=== PATIENT | female | born 1995 | race Caucasian/White ===

== ENCOUNTER 2016-12-03 12:28 | Inpatient (IN) | payer OTHER ==
[2016-12-03 12:52] LABS: Glucose,Whole Blood >600 mg/dL (75-99)
[2016-12-03] MEDS ORDERED: SODIUM CHLORIDE 0.9% 2,000 ML IV STA (13:02)
--- NOTE | 2016-12-03 13:05 | ED ---
General Adult HPI - General Source: patient, RN notes reviewed Mode of arrival: wheelchair Limitations: no limitations <Emi To - Last Filed: 12/03/16 15:15> <Janes Grossman - Last Filed: 12/03/16 15:31> - General Chief complaint: Recheck/Abnormal Lab/Rx Stated complaint: lethargy/blood sugar problems Time Seen by Provider: 12/03/16 12:59 - History of Present Illness Initial comments: 21 yo female presents to the ER with cc of hyperglycemia. Patient states she started to feel very funny this morning and all of a sudden she took her glucose was reading high. Patient states then took 12 units of NovoLog and came here. She states yesterday her glucose usually running normal. She cannot recall the exact numbers but she states that everything was fine. She denies any cough cold runny nose. She states that she has had type 1 diabetes for the last about 9 years. Patient states that she has not had any nausea vomiting fever or chills. Patient denies any infection-like complaints. Patient states she was concerned due to the high glucose and the fact that she just was not feeling right so she thought that she should be seen.Patient denies any recent fever, chills, shortness of breath, chest pain, back pain, abdominal pain, nausea vomiting, numbness or tingling, dysuria or hematuria, constipation or diarrhea, headaches or visual changes, or any other current symptoms. (Emi To) - Related Data Home Medications Medication Instructions Recorded Confirmed Insulin Glargine [Lantus] 10 units SQ BID 10/31/14 12/03/16 Naproxen Sodium 550 tab PO BID PRN 10/31/14 12/03/16 Insulin Aspart [NovoLOG] See Protocol SQ ACHS 12/03/16 12/03/16 Allergies Allergy/AdvReac Type Severity Reaction Status Date / Time Sulfa (Sulfonamide AdvReac Nausea & Verified 12/03/16 12:55 Antibiotics) Vomiting sulfamethoxazole AdvReac Nausea & Verified 12/03/16 12:55 [From Bactrim] Vomiting trimethoprim [From Bactrim] AdvReac Nausea & Verified 12/03/16 12:55 Vomiting Review of Systems ROS Other: All systems not noted in ROS Statement are negative. <Emi To - Last Filed: 12/03/16 15:15> ROS Other: All systems not noted in ROS Statement are negative. <Janes Grossman - Last Filed: 12/03/16 15:31> ROS Statement: Those systems with pertinent positive or pertinent negative responses have been documented in the HPI. Past Medical History Past Medical History: Asthma, Diabetes Mellitus, GERD/Reflux, Syncope Additional Past Medical History / Comment(s): back pain- BULGING DISC, ovarian cyst History of Any Multi-Drug Resistant Organisms: MRSA Date of last positivie culture/infection: 03/2014 MDRO Source:: thigh Past Surgical History: No Surgical Hx Reported Past Anesthesia/Blood Transfusion Reactions: No Reported Reaction Past Psychological History: No Psychological Hx Reported Smoking Status: Never smoker - Past Family History Mother History Unknown: Yes Father Family Medical History: Diabetes Mellitus <Emi To - Last Filed: 12/03/16 15:15> General Exam Limitations: no limitations <Emi To - Last Filed: 12/03/16 15:15> <Janes Grossman - Last Filed: 12/03/16 15:31> - General Exam Comments Initial Comments: General: The patient is awake and alert, in no distress, and does not appear acutely ill. Eye: Pupils are equal, round and reactive to light, extra-ocular movements are intact; there is normal conjunctiva bilaterally. No signs of icterus. Ears, nose, mouth and throat: There are moist mucous membranes. Neck: The neck is supple, there is no tenderness. Cardiovascular: There is a regular rate and rhythm. No murmur, rub or gallop is appreciated. Respiratory: Lungs are clear to auscultation, respirations are non-labored, breath sounds are equal. No wheezes, stridor, rales, or rhonchi. Gastrointestinal: Soft, non-distended, non-tender abdomen without masses or organomegaly noted. There is no rebound or guarding present. No CVA tenderness. Bowel sounds are unremarkable. Back: There is no tenderness to palpation in the midline. There is no obvious deformity. No rashes noted. Musculoskeletal: Normal ROM, no tenderness, There is no pedal edema. There is no calf tenderness or swelling. Sensation intact. Pulses equal bilaterally 2+. Neurological: CN II-XII intact, There are no obvious motor or sensory deficits. Coordination appears grossly intact. Speech is normal. Skin: Skin is warm and dry and no rashes or lesions are noted. Psychiatric: Cooperative, appropriate mood & affect, normal judgment. (Emi To) Medical Decision Making - Lab Data Result diagrams: 12/03/16 13:14 12/03/16 13:14 <Emi To - Last Filed: 12/03/16 15:15> - Lab Data Result diagrams: 12/03/16 13:14 12/03/16 13:14 <Janes Grossman - Last Filed: 12/03/16 15:31> - Medical Decision Making 21-year-old female presents emergency Department chief complaint of hyperglycemia. At this time patient's lab work is reviewed and shows appear to be in DKA. This tenderness or place. We did discuss with The RN NURSERY for Dr. Garcia Who Is in Agreement with Plan. (Emi To) The patient was seen and examined. All diagnostics are reviewed. The case is discussed with the PA and I agree with findings as documented. (Jaens Grossman) - Lab Data Lab Results 12/03/16 12/03/16 12/03/16 Range/Units 12:41 13:14 13:14 WBC 4.1 (4.0-11.0) k/uL RBC 4.11 (3.80-5.40) m/uL Hgb 12.7 (11.4-16.0) gm/dL Hct 41.1 (34.0-46.0) % MCV 99.9 (80.0-100.0) fL MCH 30.9 (25.0-35.0) pg MCHC 30.9 L (31.0-37.0) g/dL RDW 17.3 H (11.5-15.5) % Plt Count 388 (150-450) k/uL Neutrophils % 67 % Lymphocytes % 24 % Monocytes % 5 % Eosinophils % 1 % Basophils % 1 % Neutrophils # 2.8 (1.3-7.7) k/uL Lymphocytes # 1.0 (1.0-4.8) k/uL Monocytes # 0.2 (0-1.0) k/uL Eosinophils # 0.0 (0-0.7) k/uL Basophils # 0.0 (0-0.2) k/uL Hypochromasia Moderate Poikilocytosis Slight Anisocytosis Slight Macrocytosis Slight PT (9.0-12.0) sec INR (<1.2) APTT (22.0-30.0) sec Sodium 137 (137-145) mmol/L Potassium 4.9 (3.5-5.1) mmol/L Chloride 104 (98-107) mmol/L Carbon Dioxide 5 L* (22-30) mmol/L Anion Gap 28 mmol/L BUN 16 (7-17) mg/dL Creatinine 0.54 (0.52-1.04) mg/dL Est GFR (MDRD) Af Amer >60 (>60 ml/min/1.73 sqM) Est GFR (MDRD) Non-Af >60 (>60 ml/min/1.73 sqM) Glucose 527 H* (74-99) mg/dL POC Glucose (mg/dL) >600 H (75-99) mg/dL POC Glu Family [employer] Consumer Education Teacher ID Rachel Cook Calcium 9.0 (8.4-10.2) mg/dL Phosphorus 4.9 H (2.5-4.5) mg/dL Magnesium 1.6 (1.6-2.3) mg/dL Total Bilirubin 1.2 (0.2-1.3) mg/dL AST 188 H (14-36) U/L ALT 257 H (9-52) U/L Alkaline Phosphatase 569 H (38-126) U/L Total Protein 7.2 (6.3-8.2) g/dL Albumin 4.4 (3.5-5.0) g/dL Urine Color Urine Appearance (Clear) Urine pH (5.0-8.0) Ur Specific [place] (1.001-1.035) Urine Protein (Negative) Urine Glucose (UA) (Negative) Urine Ketones (Negative) Urine Blood (Negative) Urine Nitrite (Negative) Urine Bilirubin (Negative) Urine Urobilinogen (<2.0) mg/dL Ur Leukocyte Esterase (Negative) Urine RBC (0-5) /hpf Urine WBC (0-5) /hpf Ur Squamous Epith Cells (0-4) /hpf Amorphous Sediment (None) /hpf Urine Mucus (None) /hpf Urine HCG, Qual (Not Detectd) Acetone, Qual Positive (Negative) 12/03/16 12/03/16 12/03/16 Range/Units 13:14 13:59 14:00 WBC (4.0-11.0) k/uL RBC (3.80-5.40) m/uL Hgb (11.4-16.0) gm/dL Hct (34.0-46.0) % MCV (80.0-100.0) fL MCH (25.0-35.0) pg MCHC (31.0-37.0) g/dL RDW (11.5-15.5) % Plt Count (150-450) k/uL Neutrophils % % Lymphocytes % % Monocytes % % Eosinophils % % Basophils % % Neutrophils # (1.3-7.7) k/uL Lymphocytes # (1.0-4.8) k/uL Monocytes # (0-1.0) k/uL Eosinophils # (0-0.7) k/uL Basophils # (0-0.2) k/uL Hypochromasia Poikilocytosis Anisocytosis Macrocytosis PT 9.6 (9.0-12.0) sec INR 0.9 (<1.2) APTT 19.0 L (22.0-30.0) sec Sodium (137-145) mmol/L Potassium (3.5-5.1) mmol/L Chloride (98-107) mmol/L Carbon Dioxide (22-30) mmol/L Anion Gap mmol/L BUN (7-17) mg/dL Creatinine (0.52-1.04) mg/dL Est GFR (MDRD) Af Amer (>60 ml/min/1.73 sqM) Est GFR (MDRD) Non-Af (>60 ml/min/1.73 sqM) Glucose (74-99) mg/dL POC Glucose (mg/dL) 331 H (75-99) mg/dL POC Glu Family And Consumer Education Teacher ID Dunsmore, Karlene Calcium (8.4-10.2) mg/dL Phosphorus (2.5-4.5) mg/dL Magnesium (1.6-2.3) mg/dL Total Bilirubin (0.2-1.3) mg/dL AST (14-36) U/L ALT (9-52) U/L Alkaline Phosphatase (38-126) U/L Total Protein (6.3-8.2) g/dL Albumin (3.5-5.0) g/dL Urine Color Urine Appearance (Clear) Urine pH (5.0-8.0) Ur Specific [place] (1.001-1.035) Urine Protein (Negative) Urine Glucose (UA) (Negative) Urine Ketones (Negative) Urine Blood (Negative) Urine Nitrite (Negative) Urine Bilirubin (Negative) Urine Urobilinogen (<2.0) mg/dL Ur Leukocyte Esterase (Negative) Urine RBC (0-5) /hpf Urine WBC (0-5) /hpf Ur Squamous Epith Cells (0-4) /hpf Amorphous Sediment (None) /hpf Urine Mucus (None) /hpf Urine HCG, Qual Not Detected (Not Detectd) Acetone, Qual (Negative) 12/03/16 12/03/16 12/03/16 Range/Units 14:00 14:31 15:04 WBC (4.0-11.0) k/uL RBC (3.80-5.40) m/uL Hgb (11.4-16.0) gm/dL Hct (34.0-46.0) % MCV (80.0-100.0) fL MCH (25.0-35.0) pg MCHC (31.0-37.0) g/dL RDW (11.5-15.5) % Plt Count (150-450) k/uL Neutrophils % % Lymphocytes % % Monocytes % % Eosinophils % % Basophils % % Neutrophils # (1.3-7.7) k/uL Lymphocytes # (1.0-4.8) k/uL Monocytes # (0-1.0) k/uL Eosinophils # (0-0.7) k/uL Basophils # (0-0.2) k/uL Hypochromasia Poikilocytosis Anisocytosis Macrocytosis PT (9.0-12.0) sec INR (<1.2) APTT (22.0-30.0) sec Sodium (137-145) mmol/L Potassium (3.5-5.1) mmol/L Chloride (98-107) mmol/L Carbon Dioxide (22-30) mmol/L Anion Gap mmol/L BUN (7-17) mg/dL Creatinine (0.52-1.04) mg/dL Est GFR (MDRD) Af Amer (>60 ml/min/1.73 sqM) Est GFR (MDRD) Non-Af (>60 ml/min/1.73 sqM) Glucose (74-99) mg/dL POC Glucose (mg/dL) 255 H 197 H (75-99) mg/dL POC Glu Family [employer] Consumer Education Teacher ID Ayesha Gonzalez Tiffany Calcium (8.4-10.2) mg/dL Phosphorus (2.5-4.5) mg/dL Magnesium (1.6-2.3) mg/dL Total Bilirubin (0.2-1.3) mg/dL AST (14-36) U/L ALT (9-52) U/L Alkaline Phosphatase (38-126) U/L Total Protein (6.3-8.2) g/dL Albumin (3.5-5.0) g/dL Urine Color Colorless Urine Appearance Clear (Clear) Urine pH 5.0 (5.0-8.0) Ur Specific [place] 1.022 (1.001-1.035) Urine Protein Trace H (Negative) Urine Glucose (UA) 4+ H (Negative) Urine Ketones 4+ H (Negative) Urine Blood Negative (Negative) Urine Nitrite Negative (Negative) Urine Bilirubin Negative (Negative) Urine Urobilinogen <2.0 (<2.0) mg/dL Ur Leukocyte Esterase Moderate H (Negative) Urine RBC 1 (0-5) /hpf Urine WBC 28 H (0-5) /hpf Ur Squamous Epith Cells 6 H (0-4) /hpf Amorphous Sediment Occasional H (None) /hpf Urine Mucus Occasional H (None) /hpf Urine HCG, Qual (Not Detectd) Acetone, Qual (Negative) Disposition Decision Date: 12/03/16 Decision Time: 15:16 <Emi To - Last Filed: 12/03/16 15:15> <Janes Grossman - Last Filed: 12/03/16 15:31> Clinical Impression: DKA (diabetic ketoacidoses) Disposition: ADMITTED IP TO THIS [facility] Condition: Stable Referrals: Deborah Stearns MD [Primary Care Provider] - 1-2 days
[2016-12-03 14:01] LABS: Glucose,Whole Blood 331 mg/dL (75-99)
[2016-12-03 14:03] LABS: Anisocytosis Slight; Basophils % (A) 1 %; CH 31.1; CHCM 31.5; Eosinophils % (A) 1 %; HCT 41.1 % (34.0-46.0); HDW 3.55; HGB 12.7 gm/dL (11.4-16.0); Hypochromasia Moderate; Luc # (Auto) 0.12; Luc % (Auto) 3; Lymphocytes % (A) 24 %; MCH 30.9 pg (25.0-35.0); MCHC 30.9 g/dL (31.0-37.0); MCV 99.9 fL (80.0-100.0); Macrocytosis Slight; Mean Platelet Volume 8.5; Monocytes # (A) 0.2 k/uL (0-1.0); Monocytes % (A) 5 %; Neutrophils # (A) 2.8 k/uL (1.3-7.7); Neutrophils % (A) 67 %; Poikilocytosis Slight; RBC 4.11 m/uL (3.80-5.40); RDW 17.3 % (11.5-15.5); WBC 4.1 k/uL (4.0-11.0); WBC (Perox) 6.74
[2016-12-03 14:05] LABS: INR 0.9 (<1.2); Prothrombin Time 9.6 sec (9.0-12.0)
[2016-12-03 14:18] LABS: ALT 257 U/L (9-52); AST 188 U/L (14-36); Alkaline Phosphatase 569 U/L (38-126); Anion Gap 28 mmol/L; Blood Urea Nitrogen 16 mg/dL (7-17); Chloride 104 mmol/L (98-107); Magnesium 1.6 mg/dL (1.6-2.3); Non-African American GFR(MDRD) >60 (>60 ml/min/1.73 sqM); Phosphorous 4.9 mg/dL (2.5-4.5); Potassium 4.9 mmol/L (3.5-5.1); Sodium 137 mmol/L (137-145); Total Bilirubin 1.2 mg/dL (0.2-1.3); Total Protein 7.2 g/dL (6.3-8.2)
[2016-12-03 14:23] LABS: Glucose 527 mg/dL (74-99)
[2016-12-03 14:24] LABS: Carbon Dioxide 5 mmol/L (22-30)
[2016-12-03 14:32] LABS: Glucose,Whole Blood 255 mg/dL (75-99)
[2016-12-03 14:38] LABS: Amorphous Sediment,Urine Occasional /hpf; Appearance,Urine Clear (Clear); Bilirubin,Urine Negative (Negative); Glucose,Urine (UA) 4+ (Negative); Leukocyte Esterase,Urine Moderate (Negative); Mucus,Urine Occasional /hpf; Nitrite,Urine Negative (Negative); Particle Count 2338; Protein,Urine Trace (Negative); RBC,Urine 1 /hpf (0-5); Specific Gravity,Urine 1.022 (1.001-1.035); Squamous Epithelial Cell,Urine 6 /hpf (0-4); UA Billing (MACRO vs. MICRO) MICRO; Urobilinogen,Urine <2.0 mg/dL (<2.0); WBC,Urine 28 /hpf (0-5)
[2016-12-03 14:42] LABS: Ketones,Urine 4+ (Negative)
[2016-12-03] MEDS ORDERED: INSULIN REGULAR 100 UNIT in SODIUM CHLORIDE 0.9% 100 ML IV SCH (14:45)
[2016-12-03] MEDS ORDERED: D5-0.45% NACL WITH KCL 20MEQ/L 1,000 ML IV ONE (15:00)
[2016-12-03 15:10] LABS: Glucose,Whole Blood 197 mg/dL (75-99)
[2016-12-03 16:02] LABS: Glucose,Whole Blood 137 mg/dL (75-99)
[2016-12-03 16:34] LABS: Glucose,Whole Blood 120 mg/dL (75-99)
[2016-12-03] MEDS: SODIUM CHLORIDE 0.9% 1,000 ML IV SCH ×2 (16:47→21:30)
[2016-12-03 17:52] LABS: Anion Gap 15 mmol/L; Blood Urea Nitrogen 12 mg/dL (7-17); Carbon Dioxide 12 mmol/L (22-30); Chloride 109 mmol/L (98-107); Glucose 85 mg/dL (74-99); Non-African American GFR(MDRD) >60 (>60 ml/min/1.73 sqM); Potassium 3.9 mmol/L (3.5-5.1); Sodium 136 mmol/L (137-145)
[2016-12-03] MEDS: D5-0.45% NACL WITH KCL 20MEQ/L 1,000 ML IV SCH ×2 (18:11→21:57)
[2016-12-03 18:17] LABS: Glucose,Whole Blood 90 mg/dL (75-99)
[2016-12-03 18:29] LABS: Glucose,Whole Blood 168 mg/dL (75-99)
[2016-12-03 19:17] LABS: Glucose,Whole Blood 384 mg/dL (75-99)
[2016-12-03 20:20] LABS: Glucose,Whole Blood 279 mg/dL (75-99)
[2016-12-03 21:23] LABS: Glucose,Whole Blood 205 mg/dL (75-99)
[2016-12-03 22:22] LABS: Anion Gap 18 mmol/L; Blood Urea Nitrogen 11 mg/dL (7-17); Carbon Dioxide 11 mmol/L (22-30); Chloride 107 mmol/L (98-107); Glucose 183 mg/dL (74-99); Non-African American GFR(MDRD) >60 (>60 ml/min/1.73 sqM); Phosphorous 3.1 mg/dL (2.5-4.5); Potassium 4.1 mmol/L (3.5-5.1); Sodium 136 mmol/L (137-145)
[2016-12-03 22:26] LABS: Glucose,Whole Blood 184 mg/dL (75-99)
[2016-12-03 23:29] LABS: Glucose,Whole Blood 167 mg/dL (75-99)
[2016-12-04 00:30] LABS: Glucose,Whole Blood 148 mg/dL (75-99)
[2016-12-04 01:19] LABS: ALT 199 U/L (9-52); AST 182 U/L (14-36); Alkaline Phosphatase 440 U/L (38-126); Anion Gap 13 mmol/L; Blood Urea Nitrogen 12 mg/dL (7-17); Carbon Dioxide 15 mmol/L (22-30); Chloride 108 mmol/L (98-107); Glucose 125 mg/dL (74-99); Non-African American GFR(MDRD) >60 (>60 ml/min/1.73 sqM); Sodium 136 mmol/L (137-145); Total Bilirubin 0.1 mg/dL (0.2-1.3); Total Protein 5.1 g/dL (6.3-8.2)
[2016-12-04 01:21] LABS: Potassium 3.8 mmol/L (3.5-5.1)
[2016-12-04 01:47] LABS: Glucose,Whole Blood 104 mg/dL (75-99)
[2016-12-04] MEDS: SODIUM CHLORIDE 0.9% 1,000 ML IV SCH ×2 (02:16→11:59)
[2016-12-04 02:56] LABS: Glucose,Whole Blood 110 mg/dL (75-99)
[2016-12-04 03:18] LABS: Glucose,Whole Blood 115 mg/dL (75-99)
[2016-12-04 04:31] LABS: Glucose,Whole Blood 94 mg/dL (75-99)
[2016-12-04 05:20] LABS: Anion Gap 9 mmol/L; Blood Urea Nitrogen 11 mg/dL (7-17); Calcium 8.1 mg/dL (8.4-10.2); Carbon Dioxide 18 mmol/L (22-30); Chloride 111 mmol/L (98-107); Glucose 83 mg/dL (74-99); Non-African American GFR(MDRD) >60 (>60 ml/min/1.73 sqM); Phosphorous 3.9 mg/dL (2.5-4.5); Potassium 3.7 mmol/L (3.5-5.1); Sodium 138 mmol/L (137-145)
[2016-12-04 05:32] LABS: Glucose,Whole Blood 80 mg/dL (75-99)
[2016-12-04] MEDS: D5-0.45% NACL WITH KCL 20MEQ/L 1,000 ML IV SCH (05:49)
[2016-12-04 06:27] LABS: Glucose,Whole Blood 90 mg/dL (75-99)
[2016-12-04] MEDS: INSULIN LISPRO (humaLOG) 300 UNIT/3 ML VIAL SQ SCH ×3 (06:32→17:15)
[2016-12-04] MEDS ORDERED: INSULIN GLARGINE 100 UNIT/ML 10 ML VIAL SQ SCH (09:00)
[2016-12-04 10:56] VITALS: BMI 23.3
[2016-12-04 10:59] VITALS: RESP 16; TEMP 97.1
[2016-12-04 11:41] LABS: Glucose,Whole Blood 491 mg/dL (75-99)
--- NOTE | 2016-12-04 12:15 | P.HPIM ---
History of Present Illness 81-year-old female came to the hospital with complaints of hyperglycemia, and patient was having nausea vomiting since Friday multiple episodes patient denied any fever, chills, dysuria, cough. No signs or symptoms of infection patient is found to be in DKA had anion gap resolved patient was resumed on her home regimen of the 10 units twice a day of Lantus along with the sliding scale insulin with meals patient blood sugars have come down. But the recent blood sugar was above 400 because of which I'm aware hold her discharge until later in the day patient is on normal saline at 100 mL per hour at this time all that apply to imbalances resolved and anion gap resolved at this time. Patient does not have any signs or symptoms of sepsis in patient is competent with her medication regimen Review of Systems REVIEW OF SYSTEMS: CONSTITUTIONAL: No fever, no malaise, no fatigue. HEENT: No recent visual problems or hearing problems. Denied any sore throat. CARDIOVASCULAR: No chest pain, orthopnea, PND, no palpitations, no syncope. PULMONARY: No shortness of breath, no cough, no hemoptysis. GASTROINTESTINAL: No diarrhea, no abdominal pain. Normoactive bowel sounds. NEUROLOGICAL: No headaches, no weakness, no numbness. HEMATOLOGICAL: Denies any bleeding or petechiae. GENITOURINARY: Denies any burning micturition, frequency, or urgency. MUSCULOSKELETAL/RHEUMATOLOGICAL: Denies any joint pain, swelling, or any muscle pain. ENDOCRINE: Denies any polyuria or polydipsia. The rest of the 14-point review of systems is negative. Past Medical History Past Medical History: Asthma, Diabetes Mellitus, GERD/Reflux, Syncope Additional Past Medical History / Comment(s): back pain- BULGING DISC, ovarian cyst, HX OF DKA,DM TYPE 1(FOR APPROX PAST 9 YEARS) History of Any Multi-Drug Resistant Organisms: MRSA Date of last positivie culture/infection: 03/2014 MDRO Source:: GROIN AREA Past Surgical History: No Surgical Hx Reported Past Anesthesia/Blood Transfusion Reactions: No Reported Reaction Smoking Status: Current some day smoker - Past Family History Mother History Unknown: Yes Father Family Medical History: Diabetes Mellitus Medications and Allergies Home Medications Medication Instructions Recorded Confirmed Type Insulin Glargine [Lantus] 10 units SQ BID 10/31/14 12/03/16 History Naproxen Sodium 550 tab PO BID PRN 10/31/14 12/03/16 History Insulin Aspart [NovoLOG] See Protocol SQ ACHS 12/03/16 12/03/16 History Allergies Allergy/AdvReac Type Severity Reaction Status Date / Time Sulfa (Sulfonamide AdvReac Nausea & Verified 12/03/16 12:55 Antibiotics) Vomiting sulfamethoxazole AdvReac Nausea & Verified 12/03/16 12:55 [From Bactrim] Vomiting trimethoprim [From Bactrim] AdvReac Nausea & Verified 12/03/16 12:55 Vomiting Physical Exam Vitals: Vital Signs Temp Pulse Pulse Resp BP BP Pulse Ox 12/04/16 08:00 97.1 F L 88 16 106/69 99 12/04/16 04:00 97.6 F 71 17 89/53 99 12/04/16 00:00 92 16 107/72 99 12/03/16 20:00 98.2 F 103 H 17 106/65 99 12/03/16 18:40 98.3 F 97 20 115/68 98 12/03/16 17:00 88 20 103/66 98 12/03/16 16:00 92 20 102/63 98 12/03/16 15:00 99 20 108/71 99 12/03/16 14:00 100 20 115/71 99 12/03/16 13:00 98 20 106/71 99 12/03/16 12:39 98.1 F 69 16 106/66 98 Intake and Output 12/03/16 12/04/16 12/04/16 22:59 06:59 14:59 Intake Total 18.920 230.068 2452.8 Balance 18.920 007.743 5664.8 Intake: IV 820.8 Insulin Regular 100 unit 20.8 In Sodium Chloride 0.9% 100 ml @ 0.1 UNITS/KG/HR 6.41 mls/hr IV .[id number] [facility] Rx#:[id number] Sodium Chloride 0.9% 1, 800 000 ml @ 100 mls/hr IV . Q10H [facility] Rx#:[id number] Intake, IV Titration 18.920 835.036 Amount D5-0.45% NaCl with KCl 825 20Meq/l 1,000 ml @ 150 mls/hr IV .[id number] [facility] Rx# :[id number] Insulin Regular 100 unit 18.920 10.036 In Sodium Chloride 0.9% 100 ml @ 0.1 UNITS/KG/HR 6.41 mls/hr IV .[id number] [facility] Rx#:[id number] Oral 240 Other: Voiding Method Toilet Toilet Weight 63.6 kg 63.6 kg Patient Weight 12/05/16 06:59 Weight 63.6 kg PHYSICAL EXAMINATION: GENERAL: The patient is alert and oriented x3, not in any acute distress. Well developed, well nourished. HEENT: Pupils are round and equally reacting to light. EOMI. No scleral icterus. No conjunctival pallor. Normocephalic, atraumatic. No pharyngeal erythema. No thyromegaly. CARDIOVASCULAR: S1 and S2 present. No murmurs, rubs, or gallops. PULMONARY: Chest is clear to auscultation, no wheezing or crackles. ABDOMEN: Soft, nontender, nondistended, normoactive bowel sounds. No palpable organomegaly. MUSCULOSKELETAL: No joint swelling or deformity. EXTREMITIES: No cyanosis, clubbing, or pedal edema. NEUROLOGICAL: Gross neurological examination did not reveal any focal deficits. SKIN: No rashes. Results CBC & Chem 7: 12/03/16 13:14 12/04/16 04:54 Labs: Abnormal Lab Results - Last 24 Hours (Table) 12/03/16 12/03/16 12/03/16 Range/Units 12:41 13:14 13:14 MCHC 30.9 L (31.0-37.0) g/dL RDW 17.3 H (11.5-15.5) % APTT (22.0-30.0) sec Sodium (137-145) mmol/L Chloride (98-107) mmol/L Carbon Dioxide 5 L* (22-30) mmol/L Creatinine (0.52-1.04) mg/dL Glucose 527 H* (74-99) mg/dL POC Glucose (mg/dL) >600 H (75-99) mg/dL Calcium (8.4-10.2) mg/dL Phosphorus 4.9 H (2.5-4.5) mg/dL Total Bilirubin (0.2-1.3) mg/dL AST 188 H (14-36) U/L ALT 257 H (9-52) U/L Alkaline Phosphatase 569 H (38-126) U/L Total Protein (6.3-8.2) g/dL Albumin (3.5-5.0) g/dL Urine Protein (Negative) Urine Glucose (UA) (Negative) Urine Ketones (Negative) Ur Leukocyte Esterase (Negative) Urine WBC (0-5) /hpf Ur Squamous Epith Cells (0-4) /hpf Amorphous Sediment (None) /hpf Urine Mucus (None) /hpf 12/03/16 12/03/16 12/03/16 Range/Units 13:14 13:59 14:00 MCHC (31.0-37.0) g/dL RDW (11.5-15.5) % APTT 19.0 L (22.0-30.0) sec Sodium (137-145) mmol/L Chloride (98-107) mmol/L Carbon Dioxide (22-30) mmol/L Creatinine (0.52-1.04) mg/dL Glucose (74-99) mg/dL POC Glucose (mg/dL) 331 H (75-99) mg/dL Calcium (8.4-10.2) mg/dL Phosphorus (2.5-4.5) mg/dL Total Bilirubin (0.2-1.3) mg/dL AST (14-36) U/L ALT (9-52) U/L Alkaline Phosphatase (38-126) U/L Total Protein (6.3-8.2) g/dL Albumin (3.5-5.0) g/dL Urine Protein Trace H (Negative) Urine Glucose (UA) 4+ H (Negative) Urine Ketones 4+ H (Negative) Ur Leukocyte Esterase Moderate H (Negative) Urine WBC 28 H (0-5) /hpf Ur Squamous Epith Cells 6 H (0-4) /hpf Amorphous Sediment Occasional H (None) /hpf Urine Mucus Occasional H (None) /hpf 12/03/16 12/03/16 12/03/16 Range/Units 14:31 15:04 15:56 MCHC (31.0-37.0) g/dL RDW (11.5-15.5) % APTT (22.0-30.0) sec Sodium (137-145) mmol/L Chloride (98-107) mmol/L Carbon Dioxide (22-30) mmol/L Creatinine (0.52-1.04) mg/dL Glucose (74-99) mg/dL POC Glucose (mg/dL) 255 H 197 H 137 H (75-99) mg/dL Calcium (8.4-10.2) mg/dL Phosphorus (2.5-4.5) mg/dL Total Bilirubin (0.2-1.3) mg/dL AST (14-36) U/L ALT (9-52) U/L Alkaline Phosphatase (38-126) U/L Total Protein (6.3-8.2) g/dL Albumin (3.5-5.0) g/dL Urine Protein (Negative) Urine Glucose (UA) (Negative) Urine Ketones (Negative) Ur Leukocyte Esterase (Negative) Urine WBC (0-5) /hpf Ur Squamous Epith Cells (0-4) /hpf Amorphous Sediment (None) /hpf Urine Mucus (None) /hpf 12/03/16 12/03/16 12/03/16 Range/Units 16:31 17:28 18:27 MCHC (31.0-37.0) g/dL RDW (11.5-15.5) % APTT (22.0-30.0) sec Sodium 136 L (137-145) mmol/L Chloride 109 H (98-107) mmol/L Carbon Dioxide 12 L (22-30) mmol/L Creatinine 0.40 L (0.52-1.04) mg/dL Glucose (74-99) mg/dL POC Glucose (mg/dL) 120 H 168 H (75-99) mg/dL Calcium (8.4-10.2) mg/dL Phosphorus (2.5-4.5) mg/dL Total Bilirubin (0.2-1.3) mg/dL AST (14-36) U/L ALT (9-52) U/L Alkaline Phosphatase (38-126) U/L Total Protein (6.3-8.2) g/dL Albumin (3.5-5.0) g/dL Urine Protein (Negative) Urine Glucose (UA) (Negative) Urine Ketones (Negative) Ur Leukocyte Esterase (Negative) Urine WBC (0-5) /hpf Ur Squamous Epith Cells (0-4) /hpf Amorphous Sediment (None) /hpf Urine Mucus (None) /hpf 12/03/16 12/03/16 12/03/16 Range/Units 19:14 20:07 21:10 MCHC (31.0-37.0) g/dL RDW (11.5-15.5) % APTT (22.0-30.0) sec Sodium (137-145) mmol/L Chloride (98-107) mmol/L Carbon Dioxide (22-30) mmol/L Creatinine (0.52-1.04) mg/dL Glucose (74-99) mg/dL POC Glucose (mg/dL) 384 H 279 H 205 H (75-99) mg/dL Calcium (8.4-10.2) mg/dL Phosphorus (2.5-4.5) mg/dL Total Bilirubin (0.2-1.3) mg/dL AST (14-36) U/L ALT (9-52) U/L Alkaline Phosphatase (38-126) U/L Total Protein (6.3-8.2) g/dL Albumin (3.5-5.0) g/dL Urine Protein (Negative) Urine Glucose (UA) (Negative) Urine Ketones (Negative) Ur Leukocyte Esterase (Negative) Urine WBC (0-5) /hpf Ur Squamous Epith Cells (0-4) /hpf Amorphous Sediment (None) /hpf Urine Mucus (None) /hpf 12/03/16 12/03/16 12/03/16 Range/Units 21:36 22:14 23:17 MCHC (31.0-37.0) g/dL RDW (11.5-15.5) % APTT (22.0-30.0) sec Sodium 136 L (137-145) mmol/L Chloride (98-107) mmol/L Carbon Dioxide 11 L (22-30) mmol/L Creatinine 0.50 L (0.52-1.04) mg/dL Glucose 183 H (74-99) mg/dL POC Glucose (mg/dL) 184 H 167 H (75-99) mg/dL Calcium (8.4-10.2) mg/dL Phosphorus (2.5-4.5) mg/dL Total Bilirubin (0.2-1.3) mg/dL AST (14-36) U/L ALT (9-52) U/L Alkaline Phosphatase (38-126) U/L Total Protein (6.3-8.2) g/dL Albumin (3.5-5.0) g/dL Urine Protein (Negative) Urine Glucose (UA) (Negative) Urine Ketones (Negative) Ur Leukocyte Esterase (Negative) Urine WBC (0-5) /hpf Ur Squamous Epith Cells (0-4) /hpf Amorphous Sediment (None) /hpf Urine Mucus (None) /hpf 12/04/16 12/04/16 12/04/16 Range/Units 00:17 00:57 01:34 MCHC (31.0-37.0) g/dL RDW (11.5-15.5) % APTT (22.0-30.0) sec Sodium 136 L (137-145) mmol/L Chloride 108 H (98-107) mmol/L Carbon Dioxide 15 L (22-30) mmol/L Creatinine 0.50 L (0.52-1.04) mg/dL Glucose 125 H (74-99) mg/dL POC Glucose (mg/dL) 148 H 104 H (75-99) mg/dL Calcium 8.0 L (8.4-10.2) mg/dL Phosphorus (2.5-4.5) mg/dL Total Bilirubin 0.1 L (0.2-1.3) mg/dL AST 182 H (14-36) U/L ALT 199 H (9-52) U/L Alkaline Phosphatase 440 H (38-126) U/L Total Protein 5.1 L (6.3-8.2) g/dL Albumin 2.9 L (3.5-5.0) g/dL Urine Protein (Negative) Urine Glucose (UA) (Negative) Urine Ketones (Negative) Ur Leukocyte Esterase (Negative) Urine WBC (0-5) /hpf Ur Squamous Epith Cells (0-4) /hpf Amorphous Sediment (None) /hpf Urine Mucus (None) /hpf 12/04/16 12/04/16 12/04/16 Range/Units 02:21 03:06 04:54 MCHC (31.0-37.0) g/dL RDW (11.5-15.5) % APTT (22.0-30.0) sec Sodium (137-145) mmol/L Chloride 111 H (98-107) mmol/L Carbon Dioxide 18 L (22-30) mmol/L Creatinine 0.40 L (0.52-1.04) mg/dL Glucose (74-99) mg/dL POC Glucose (mg/dL) 110 H 115 H (75-99) mg/dL Calcium 8.1 L (8.4-10.2) mg/dL Phosphorus (2.5-4.5) mg/dL Total Bilirubin (0.2-1.3) mg/dL AST (14-36) U/L ALT (9-52) U/L Alkaline Phosphatase (38-126) U/L Total Protein (6.3-8.2) g/dL Albumin (3.5-5.0) g/dL Urine Protein (Negative) Urine Glucose (UA) (Negative) Urine Ketones (Negative) Ur Leukocyte Esterase (Negative) Urine WBC (0-5) /hpf Ur Squamous Epith Cells (0-4) /hpf Amorphous Sediment (None) /hpf Urine Mucus (None) /hpf 12/04/16 Range/Units 11:28 MCHC (31.0-37.0) g/dL RDW (11.5-15.5) % APTT (22.0-30.0) sec Sodium (137-145) mmol/L Chloride (98-107) mmol/L Carbon Dioxide (22-30) mmol/L Creatinine (0.52-1.04) mg/dL Glucose (74-99) mg/dL POC Glucose (mg/dL) 491 H (75-99) mg/dL Calcium (8.4-10.2) mg/dL Phosphorus (2.5-4.5) mg/dL Total Bilirubin (0.2-1.3) mg/dL AST (14-36) U/L ALT (9-52) U/L Alkaline Phosphatase (38-126) U/L Total Protein (6.3-8.2) g/dL Albumin (3.5-5.0) g/dL Urine Protein (Negative) Urine Glucose (UA) (Negative) Urine Ketones (Negative) Ur Leukocyte Esterase (Negative) Urine WBC (0-5) /hpf Ur Squamous Epith Cells (0-4) /hpf Amorphous Sediment (None) /hpf Urine Mucus (None) /hpf Microbiology - Last 24 Hours (Table) 12/03/16 14:00 Urine Culture - Preliminary Urine,Voided Thrombosis Risk Factor Assmnt - Choose All That Apply Any of the Below Risk Factors Present?: No Other Risk Factors: No Other congenital or acquired thrombophilia - If yes, enter type in comment: No Thrombosis Risk Factor Assessment Level: Very Low Risk Assessment and Plan Plan: #1 diabetic ketoacidosis: An gap resolved further management as mentioned in the history. Continue with IV fluids. #2 type 1 diabetes mellitus: Patient appears to be an appropriate regimen but her blood sugars are fluctuating because of which will monitor her until later in the day for blood sugars are under control and patient doesn't go back into DKA patient will be discharged today #3 nausea vomiting: Probably secondary to DKA patient does not have any other signs or symptoms of infection at this time. #4 anion gap metabolic acidosis and tachycardia secondary to severe intravascular depletion and DKA #5 elevated liver enzymes unsure of the exact etiology patient denied any history of hepatitis in the past will obtain an acute hepatitis panel had liver enzymes are coming down, patient denied any alcohol abuse history. May be related to DKA itself expected to improve recommend outpatient CMP testing about a week and the results to be faxed to primary care physician. Patient will follow with primary care physician and air traffic control specialist as an outpatient.
--- NOTE | 2016-12-04 12:15 | P.DS ---
Providers Date of admission: 12/03/16 15:16 Attending physician: Eddy Garcia Primary care physician: Deborah Stearns [facility] Course: Please refer to HPI Patient Condition at Discharge: Stable Plan - Discharge Summary New Discharge Prescriptions: No Action Insulin Glargine [Lantus] 10 units SQ BID Naproxen Sodium 550 tab PO BID PRN PRN Reason: Pain Insulin Aspart [NovoLOG] See Protocol SQ ACHS Discharge Medication List Insulin Glargine [Lantus] 10 units SQ BID 10/31/14 [History] Naproxen Sodium 550 tab PO BID PRN 10/31/14 [History] Insulin Aspart [NovoLOG] See Protocol SQ ACHS 12/03/16 [History] Follow up Appointment(s)/Referral(s): Deborah Stearns MD [Primary Care Provider] - 3 Days Ruba Hess MD [REFERRING] - 1 Week Ambulatory/Diagnostic Orders: Comprehensive Metabolic Panel [LAB.AMB] Time Frame: 3 Days, Location: Determined By Patient Patient Instructions/Handouts: Diabetic Ketoacidosis (DC) Discharge Disposition: HOME SELF-CARE
[2016-12-04] MEDS ORDERED: INSULIN LISPRO (humaLOG) 300 UNIT/3 ML VIAL SQ ONE (12:16)
[2016-12-04 12:42] LABS: ALT 224 U/L (9-52); AST 160 U/L (14-36); Alkaline Phosphatase 408 U/L (38-126); Total Bilirubin 0.2 mg/dL (0.2-1.3); Total Protein 5.1 g/dL (6.3-8.2)
[2016-12-04 13:21] LABS: Hemoglobin A1C 12.4 % (4.2-6.1)
[2016-12-04 16:07] VITALS: BP 108/72; PULSE 93
[2016-12-04 16:54] LABS: Glucose,Whole Blood 184 mg/dL (75-99)
== END 2016-12-04 18:44 | disposition home or self-care (01) | DRG 639 ==
LOC: EC 12:28 → 6SEL 15:16
PROVIDERS: ADMIT Internal Medicine; ATTEND Internal Medicine
DX: E10.10 Type 1 diabetes mellitus with ketoacidosis without coma (principal); F17.200 Nicotine dependence, unspecified, uncomplicated; J45.909 Unspecified asthma, uncomplicated; K21.9 Gastro-esophageal reflux disease without esophagitis; Z79.4 Long term (current) use of insulin; Z83.3 Family history of diabetes mellitus; Z88.2 Allergy status to sulfonamides
CPT/HCPCS: 36415; 80051; 80053; 80074; 81001; 81025; 82009; 82565; 82947; 83036; 83735; 84100; 84520; 85025; 85610; 85730; 87086; 96360; 96361; 96365; 96366; 99285

== ENCOUNTER → 2016-12-09 | Outpatient (CLI) | payer SELFPAY ==
[2016-12-09 14:01] LABS: ALT 267 U/L (9-52); AST 207 U/L (14-36); Alkaline Phosphatase 683 U/L (38-126); Anion Gap 23 mmol/L; Blood Urea Nitrogen 20 mg/dL (7-17); Calcium 8.8 mg/dL (8.4-10.2); Carbon Dioxide 13 mmol/L (22-30); Chloride 91 mmol/L (98-107); Non-African American GFR(MDRD) >60 (>60 ml/min/1.73 sqM); Potassium 5.6 mmol/L (3.5-5.1); Sodium 127 mmol/L (137-145); Total Bilirubin 1.2 mg/dL (0.2-1.3); Total Protein 6.5 g/dL (6.3-8.2)
[2016-12-09 14:25] LABS: Glucose 990 mg/dL (74-99)
== END | disposition home or self-care (01) ==
LOC: LABWHC1 13:26
PROVIDERS: ATTEND Internal Medicine
DX: R74.8 Abnormal levels of other serum enzymes (principal)
CPT/HCPCS: 36415; 80053

== ENCOUNTER 2016-12-20 17:22 | Inpatient (IN) | payer OTHER ==
[2016-12-20] MEDS ORDERED: METOCLOPRAMIDE 5 MG/ML 2 ML VIAL IVP STA (17:42)
[2016-12-20] MEDS ORDERED: diphenhydrAMINE 50 MG/ML 1 ML VIAL IVP STA (17:42)
[2016-12-20] MEDS ORDERED: SODIUM CHLORIDE 0.9% 1,000 ML IV ONE (17:42)
[2016-12-20] MEDS ORDERED: KETOROLAC 30 MG/ML 1 ML VIAL IVP STA (17:42)
[2016-12-20] MEDS ORDERED: SODIUM CHLORIDE 0.9% 500 ML IV ONE ×2 (17:42→18:36)
--- NOTE | 2016-12-20 17:47 | ED ---
General Adult HPI <Janes Ricketts - Last Filed: 12/20/16 18:47> - General Source: patient, EMS Mode of arrival: EMS Limitations: no limitations <Sima Pozo - Last Filed: 12/20/16 22:19> - General Chief complaint: Recheck/Abnormal Lab/Rx Stated complaint: hyperglycemia Time Seen by Provider: 12/20/16 17:26 - History of Present Illness Initial comments: 21-year-old female patient presents to emergency department today for evaluation of hyperglycemia and migraine headache. Patient states that around 2 PM she fell asleep, woke up not feeling well around 3. She states that she checked her blood sugar and found that it was around 560. She states that she became nervous about the number and administered 30 units of Humalog. She states this is higher than her usual dose. She states also that she has migraine headache, states that the pain is behind her eyes. She states that the pain is pounding. States she is nauseated and does have some photosensitivity. She reports that the symptoms are consistent with her usual migraine pattern. She denies any recent illness. States she has been taking her insulin as directed. Denies any recent steroid use. Patient denies any recent rash, fever, chills, shortness breath, chest pain, abdominal pain, diarrhea, constipation, back pain, numbness, tingling, dizziness, weakness, hematuria, dysuria, urinary urgency, urinary frequency, visual changes, or any other complaints. (Sima Pozo) - Related Data Home Medications Medication Instructions Recorded Confirmed Insulin Glargine [Lantus] 22 units SQ HS 10/31/14 12/20/16 Naproxen Sodium 550 tab PO BID PRN 10/31/14 12/20/16 Insulin Aspart [NovoLOG] See Protocol SQ ACHS 12/03/16 12/20/16 Allergies Allergy/AdvReac Type Severity Reaction Status Date / Time Sulfa (Sulfonamide AdvReac Nausea & Verified 12/20/16 17:59 Antibiotics) Vomiting sulfamethoxazole AdvReac Nausea & Verified 12/20/16 17:59 [From Bactrim] Vomiting trimethoprim [From Bactrim] AdvReac Nausea & Verified 12/20/16 17:59 Vomiting Review of Systems ROS Other: All systems not noted in ROS Statement are negative. <Janes Ricketts - Last Filed: 12/20/16 18:47> ROS Other: All systems not noted in ROS Statement are negative. <Sima Pozo - Last Filed: 12/20/16 22:19> ROS Statement: Those systems with pertinent positive or pertinent negative responses have been documented in the HPI. Past Medical History Past Medical History: Asthma, Diabetes Mellitus, GERD/Reflux, Syncope Additional Past Medical History / Comment(s): back pain- BULGING DISC, ovarian cyst, HX OF DKA,DM TYPE 1(FOR APPROX PAST 9 YEARS) History of Any Multi-Drug Resistant Organisms: MRSA Date of last positivie culture/infection: 03/2014 MDRO Source:: GROIN AREA Past Surgical History: No Surgical Hx Reported Past Anesthesia/Blood Transfusion Reactions: No Reported Reaction Past Psychological History: No Psychological Hx Reported Smoking Status: Current some day smoker Past Alcohol Use History: None Reported Past Drug Use History: None Reported - Past Family History Mother History Unknown: Yes Father Family Medical History: Diabetes Mellitus <Sima Pozo - Last Filed: 12/20/16 22:19> General Exam Limitations: no limitations General appearance: alert, anxious, in distress (Mild. Heavy breathing. ), other (Physical well-developed, well-nourished 21-year-old female patient. Vital signs upon presentation are temperature 98.2F, pulse 108, respirations 22 , blood pressure 132/82, pulse ox 99% on room air.) ENT exam: Present: normal exam, normal oropharynx, mucous membranes moist Neck exam: Present: normal inspection. Absent: tenderness, meningismus, lymphadenopathy Respiratory exam: Present: normal lung sounds bilaterally. Absent: respiratory distress, wheezes, rales, rhonchi, stridor Cardiovascular Exam: Present: normal rhythm, tachycardia, normal heart sounds. Absent: systolic murmur, diastolic murmur, rubs, gallop, clicks GI/Abdominal exam: Present: soft, normal bowel sounds. Absent: distended, tenderness, guarding, rebound, rigid Neurological exam: Present: alert, oriented X3, CN II-XII intact Psychiatric exam: Present: normal affect, anxious Skin exam: Present: warm, dry, intact, normal color. Absent: rash <Sima Pozo - Last Filed: 12/20/16 22:19> Course <Janes Ricketts - Last Filed: 12/20/16 18:47> <Sima Pozo - Last Filed: 12/20/16 22:19> Vital Signs 12/20/16 12/20/16 12/20/16 17:36 18:13 19:01 Temperature 98.2 F 98.2 F Pulse Rate 108 H 100 114 H Respiratory 22 16 18 Rate Blood Pressure 132/82 115/70 130/71 O2 Sat by Pulse 99 100 100 Oximetry 12/20/16 19:55 Temperature 98.1 F Pulse Rate 99 Respiratory 18 Rate Blood Pressure 128/70 O2 Sat by Pulse 100 Oximetry - Reevaluation(s) Reevaluation #1: 12/20/16 18:48 I did proceed a [id number] evaluation the patient did discuss the findings with the patient and her mother. Patient will be admitted. Case was discussed with the hospitalist. She was noted be hyperventilating somewhat she was cautioned against this. She will be rehydrated. She did take about 30 units of her insulin which is 20 more than she normally should take for this level. She will be observed closely (Janes Ricketts) Medical Decision Making - Lab Data Result diagrams: 12/20/16 18:00 12/20/16 18:00 <Janes Ricketts - Last Filed: 12/20/16 18:47> - Lab Data Result diagrams: 12/20/16 18:00 12/20/16 18:00 <Sima Pozo - Last Filed: 12/20/16 22:19> - Medical Decision Making 21-year-old female patient presented for evaluation of hyperglycemia. Blood glucose upon arrival was 502. Labs reviewed and did show a CO2 of less than 5, they were unable to calculate anion gap, glucose is 422, acetone positive. Patient was started on IV Normal saline. Patient did self administer 30 units of Humalog prior to arrival in the ED. Recheck blood sugar was 249. Patient was started on D5 45 with 20 of KCl. Patient was given food here in the department. She'll be admitted to telemetry monitoring. Dr. Teran is accepting. (Sima Pozo) - Lab Data Lab Results 12/20/16 12/20/16 12/20/16 Range/Units 17:34 18:00 18:00 WBC 7.6 (4.0-11.0) k/uL RBC 4.27 (3.80-5.40) m/uL Hgb 13.9 (11.4-16.0) gm/dL Hct 46.2 H (34.0-46.0) % MCV 108.2 H D (80.0-100.0) fL MCH 32.5 (25.0-35.0) pg MCHC 30.1 L (31.0-37.0) g/dL RDW 16.8 H (11.5-15.5) % Plt Count 603 H (150-450) k/uL Neutrophils % 47 % Lymphocytes % 45 % Monocytes % 4 % Eosinophils % 1 % Basophils % 1 % Neutrophils # 3.6 (1.3-7.7) k/uL Lymphocytes # 3.4 (1.0-4.8) k/uL Monocytes # 0.3 (0-1.0) k/uL Eosinophils # 0.1 (0-0.7) k/uL Basophils # 0.1 (0-0.2) k/uL Manual Slide Review Performed Polychromasia Present Hypochromasia Marked Poikilocytosis Slight Poikilocytosis (manual Present Anisocytosis Slight Macrocytosis Marked Sodium 142 (137-145) mmol/L Potassium 3.5 (3.5-5.1) mmol/L Chloride 107 (98-107) mmol/L Carbon Dioxide <5 L* (22-30) mmol/L Anion Gap mmol/L BUN 14 (7-17) mg/dL Creatinine 0.60 (0.52-1.04) mg/dL Est GFR (MDRD) Af Amer >60 (>60 ml/min/1.73 sqM) Est GFR (MDRD) Non-Af >60 (>60 ml/min/1.73 sqM) Glucose 422 H (74-99) mg/dL POC Glucose (mg/dL) 506 H (75-99) mg/dL POC Glu [employer] ID Jeanette Perales Calcium 9.3 (8.4-10.2) mg/dL Total Bilirubin 0.4 (0.2-1.3) mg/dL AST 101 H (14-36) U/L ALT 232 H (9-52) U/L Alkaline Phosphatase 594 H (38-126) U/L Total Protein 7.9 (6.3-8.2) g/dL Albumin 4.8 (3.5-5.0) g/dL Urine Color Urine Appearance (Clear) Urine pH (5.0-8.0) Ur Specific [place] (1.001-1.035) Urine Protein (Negative) Urine Glucose (UA) (Negative) Urine Ketones (Negative) Urine Blood (Negative) Urine Nitrite (Negative) Urine Bilirubin (Negative) Urine Urobilinogen (<2.0) mg/dL Ur Leukocyte Esterase (Negative) Urine RBC (0-5) /hpf Urine WBC (0-5) /hpf Ur Squamous Epith Cells (0-4) /hpf Urine Mucus (None) /hpf Urine HCG, Qual (Not Detectd) Urine Opiates Screen (NotDetected) Ur Oxycodone Screen (NotDetected) Urine Methadone Screen (NotDetected) Ur Propoxyphene Screen (NotDetected) Ur Barbiturates Screen (NotDetected) U Tricyclic Antidepress (NotDetected) Ur Phencyclidine Scrn (NotDetected) Ur Amphetamines Screen (NotDetected) U Methamphetamines Scrn (NotDetected) U Benzodiazepines Scrn (NotDetected) Urine Cocaine Screen (NotDetected) U Marijuana (THC) Screen (NotDetected) Acetone, Qual Positive (Negative) 12/20/16 12/20/16 12/20/16 Range/Units 18:00 18:00 18:38 WBC (4.0-11.0) k/uL RBC (3.80-5.40) m/uL Hgb (11.4-16.0) gm/dL Hct (34.0-46.0) % MCV (80.0-100.0) fL MCH (25.0-35.0) pg MCHC (31.0-37.0) g/dL RDW (11.5-15.5) % Plt Count (150-450) k/uL Neutrophils % % Lymphocytes % % Monocytes % % Eosinophils % % Basophils % % Neutrophils # (1.3-7.7) k/uL Lymphocytes # (1.0-4.8) k/uL Monocytes # (0-1.0) k/uL Eosinophils # (0-0.7) k/uL Basophils # (0-0.2) k/uL Manual Slide Review Polychromasia Hypochromasia Poikilocytosis Poikilocytosis (manual Anisocytosis Macrocytosis Sodium (137-145) mmol/L Potassium (3.5-5.1) mmol/L Chloride (98-107) mmol/L Carbon Dioxide (22-30) mmol/L Anion Gap mmol/L BUN (7-17) mg/dL Creatinine (0.52-1.04) mg/dL Est GFR (MDRD) Af Amer (>60 ml/min/1.73 sqM) Est GFR (MDRD) Non-Af (>60 ml/min/1.73 sqM) Glucose (74-99) mg/dL POC Glucose (mg/dL) 249 H (75-99) mg/dL POC Glu [employer]itter ID Kylie Rowland Calcium (8.4-10.2) mg/dL Total Bilirubin (0.2-1.3) mg/dL AST (14-36) U/L ALT (9-52) U/L Alkaline Phosphatase (38-126) U/L Total Protein (6.3-8.2) g/dL Albumin (3.5-5.0) g/dL Urine Color Colorless Urine Appearance Clear (Clear) Urine pH 5.0 (5.0-8.0) Ur Specific [place] 1.017 (1.001-1.035) Urine Protein 1+ H (Negative) Urine Glucose (UA) 4+ H (Negative) Urine Ketones 4+ H (Negative) Urine Blood Negative (Negative) Urine Nitrite Negative (Negative) Urine Bilirubin Negative (Negative) Urine Urobilinogen <2.0 (<2.0) mg/dL Ur Leukocyte Esterase Small H (Negative) Urine RBC 2 (0-5) /hpf Urine WBC 9 H (0-5) /hpf Ur Squamous Epith Cells 3 (0-4) /hpf Urine Mucus Rare H (None) /hpf Urine HCG, Qual Not Detected (Not Detectd) Urine Opiates Screen Not Detected (NotDetected) Ur Oxycodone Screen Not Detected (NotDetected) Urine Methadone Screen Not Detected (NotDetected) Ur Propoxyphene Screen Not Detected (NotDetected) Ur Barbiturates Screen Not Detected (NotDetected) U Tricyclic Antidepress Not Detected (NotDetected) Ur Phencyclidine Scrn Not Detected (NotDetected) Ur Amphetamines Screen Not Detected (NotDetected) U Methamphetamines Scrn Not Detected (NotDetected) U Benzodiazepines Scrn Not Detected (NotDetected) Urine Cocaine Screen Not Detected (NotDetected) U Marijuana (THC) Screen Not Detected (NotDetected) Acetone, Qual (Negative) Disposition <Janes Ricketts - Last Filed: 12/20/16 18:47> Decision to Admit Reason: Admit from EC Decision Date: 12/20/16 Decision Time: 19:19 <Sima Pozo - Last Filed: 12/20/16 22:19> Clinical Impression: DKA (diabetic ketoacidoses) Disposition: ADMITTED IP TO THIS [facility] Condition: Serious
[2016-12-20 17:48] LABS: Glucose,Whole Blood 506 mg/dL (75-99)
[2016-12-20 18:19] LABS: Anisocytosis Slight; Basophils # (A) 0.1 k/uL (0-0.2); Basophils % (A) 1 %; CH 31.3; CHCM 29.3; Eosinophils # (A) 0.1 k/uL (0-0.7); Eosinophils % (A) 1 %; HCT 46.2 % (34.0-46.0); HDW 3.77; HGB 13.9 gm/dL (11.4-16.0); Hypochromasia Marked; Luc # (Auto) 0.21; Luc % (Auto) 3; Lymphocytes # (A) 3.4 k/uL (1.0-4.8); Lymphocytes % (A) 45 %; MCH 32.5 pg (25.0-35.0); MCHC 30.1 g/dL (31.0-37.0); Macrocytosis Marked; Mean Platelet Volume 6.8; Monocytes # (A) 0.3 k/uL (0-1.0); Monocytes % (A) 4 %; Neutrophils # (A) 3.6 k/uL (1.3-7.7); Neutrophils % (A) 47 %; Poikilocytosis Slight; RBC 4.27 m/uL (3.80-5.40); RDW 16.8 % (11.5-15.5); WBC 7.6 k/uL (4.0-11.0); WBC (Perox) 7.45
[2016-12-20 18:20] LABS: Appearance,Urine Clear (Clear); Bilirubin,Urine Negative (Negative); Glucose,Urine (UA) 4+ (Negative); Leukocyte Esterase,Urine Small (Negative); Mucus,Urine Rare /hpf; Nitrite,Urine Negative (Negative); Particle Count 2234; Protein,Urine 1+ (Negative); RBC,Urine 2 /hpf (0-5); Specific Gravity,Urine 1.017 (1.001-1.035); Squamous Epithelial Cell,Urine 3 /hpf (0-4); UA Billing (MACRO vs. MICRO) MICRO; Urobilinogen,Urine <2.0 mg/dL (<2.0); WBC,Urine 9 /hpf (0-5)
[2016-12-20 18:23] LABS: MCV 108.2 fL (80.0-100.0)
[2016-12-20 18:28] LABS: ALT 232 U/L (9-52); AST 101 U/L (14-36); Alkaline Phosphatase 594 U/L (38-126); Blood Urea Nitrogen 14 mg/dL (7-17); Calcium 9.3 mg/dL (8.4-10.2); Chloride 107 mmol/L (98-107); Glucose 422 mg/dL (74-99); Non-African American GFR(MDRD) >60 (>60 ml/min/1.73 sqM); Potassium 3.5 mmol/L (3.5-5.1); Sodium 142 mmol/L (137-145); Total Bilirubin 0.4 mg/dL (0.2-1.3); Total Protein 7.9 g/dL (6.3-8.2)
[2016-12-20 18:33] LABS: Carbon Dioxide <5 mmol/L (22-30)
[2016-12-20 18:35] LABS: Ketones,Urine 4+ (Negative)
[2016-12-20] MEDS ORDERED: NALOXONE 0.4 MG/ML 1 ML VIAL IV PRN (18:39)
[2016-12-20] MEDS ORDERED: Potassium Replacement Protocol 1 EACH MISC MISCELLANE PRN (18:41)
[2016-12-20] MEDS ORDERED: Magnesium Replacement Protocol 1 EACH MISC MISCELLANE PRN (18:41)
[2016-12-20 18:43] LABS: Glucose,Whole Blood 249 mg/dL (75-99)
[2016-12-20] MEDS ORDERED: D5-0.45% NACL WITH KCL 20MEQ/L 1,000 ML IV SCH (18:45)
[2016-12-20 18:48] LABS: Manual Review Performed; Polychromasia Present
[2016-12-20] MEDS: SODIUM CHLORIDE 0.9% 1,000 ML IV SCH (19:31)
[2016-12-20 19:50] LABS: Glucose,Whole Blood 169 mg/dL (75-99)
[2016-12-20 21:01] LABS: Glucose,Whole Blood 148 mg/dL (75-99)
[2016-12-20 21:37] LABS: Hemoglobin A1C 10.1 % (4.2-6.1)
[2016-12-20 22:21] LABS: Glucose,Whole Blood 99 mg/dL (75-99)
[2016-12-20 22:58] LABS: Anion Gap 16 mmol/L; Blood Urea Nitrogen 14 mg/dL (7-17); Carbon Dioxide 13 mmol/L (22-30); Chloride 110 mmol/L (98-107); Glucose 86 mg/dL (74-99); Non-African American GFR(MDRD) >60 (>60 ml/min/1.73 sqM); Phosphorus 2.9 mg/dL (2.5-4.5); Potassium 4.3 mmol/L (3.5-5.1); Sodium 139 mmol/L (137-145)
[2016-12-20 23:09] LABS: Glucose,Whole Blood 91 mg/dL (75-99)
[2016-12-21 00:35] LABS: Glucose,Whole Blood 91 mg/dL (75-99)
[2016-12-21 02:07] LABS: Glucose,Whole Blood 87 mg/dL (75-99)
[2016-12-21 02:37] LABS: Anion Gap 11 mmol/L; Blood Urea Nitrogen 13 mg/dL (7-17); Carbon Dioxide 14 mmol/L (22-30); Chloride 113 mmol/L (98-107); Glucose 72 mg/dL (74-99); Non-African American GFR(MDRD) >60 (>60 ml/min/1.73 sqM); Phosphorus 3.8 mg/dL (2.5-4.5); Potassium 4.2 mmol/L (3.5-5.1); Sodium 138 mmol/L (137-145)
[2016-12-21 03:11] LABS: Glucose,Whole Blood 112 mg/dL (75-99)
[2016-12-21 05:42] LABS: Glucose,Whole Blood 223 mg/dL (75-99)
[2016-12-21 05:55] LABS: Glucose,Whole Blood 221 mg/dL (75-99)
[2016-12-21] MEDS: SODIUM CHLORIDE 0.9% 1,000 ML IV SCH ×3 (06:58→08:53)
[2016-12-21] MEDS ORDERED: INSULIN LISPRO (humaLOG) 300 UNIT/3 ML VIAL SQ ONE (09:16)
[2016-12-21 09:42] LABS: Glucose,Whole Blood 588 mg/dL (75-99)
[2016-12-21 11:04] VITALS: BMI 23.6
[2016-12-21 11:16] LABS: Glucose,Whole Blood 382 mg/dL (75-99)
[2016-12-21] MEDS ORDERED: INSULIN LISPRO (humaLOG) 300 UNIT/3 ML VIAL SQ SCH (12:30)
[2016-12-21 13:05] VITALS: BP 109/78; PULSE 94; RESP 16; TEMP 98.4
--- NOTE | 2016-12-21 14:27 | P.DS ---
Providers Date of admission: 12/20/16 18:48 Attending physician: Karina Teran Primary care physician: Deborah Stearns [facility] Course: Please refer to my history of present illness Patient Condition at Discharge: Serious Plan - Discharge Summary New Discharge Prescriptions: New Ranitidine HCl [Zantac] 150 mg PO BID #30 tab Continue Naproxen Sodium 550 tab PO BID PRN PRN Reason: Pain Insulin Aspart [NovoLOG] See Protocol SQ ACHS Changed Insulin Glargine [Lantus] 25 units SQ HS #0 Discharge Medication List Naproxen Sodium 550 tab PO BID PRN 10/31/14 [History] Insulin Aspart [NovoLOG] See Protocol SQ ACHS 12/03/16 [History] Insulin Glargine [Lantus] 25 units SQ HS #0 12/21/16 [Rx] Ranitidine HCl [Zantac] 150 mg PO BID #30 tab 12/21/16 [Rx] Follow up Appointment(s)/Referral(s): Deborah Stearns MD [Primary Care Provider] - 3 Days Discharge Disposition: HOME SELF-CARE
--- NOTE | 2016-12-21 14:27 | P.HPIM ---
History of Present Illness -year-old pleasant female came in with hyperglycemia headache and epigastric abdominal pain and found to be in DKA patient denied any fever, dysuria, cough. Patient workup is negative for any kind of infection abdominal pain improved now DKA resolved. Patient is a diabetic competent with her medications disease although her hemoglobin A1c is 10. Patient follows with attenuator and primary care physician outside the town patient uses 22 units of insulin Lantus and carb counting sliding scale with each meal. Patient's DKA resolved patient will be discharged with 25 units of Lantus counseling regarding diet was provided and patient will check your blood sugars 4 times a day. Precipitating factor for her DKA is probable noncompliance with medication Review of Systems REVIEW OF SYSTEMS: CONSTITUTIONAL: No fever, no malaise, no fatigue. HEENT: No recent visual problems or hearing problems. Denied any sore throat. CARDIOVASCULAR: No chest pain, orthopnea, PND, no palpitations, no syncope. PULMONARY: No shortness of breath, no cough, no hemoptysis. GASTROINTESTINAL: As mentioned in HPI NEUROLOGICAL: No headaches, no weakness, no numbness. HEMATOLOGICAL: Denies any bleeding or petechiae. GENITOURINARY: Denies any burning micturition, frequency, or urgency. MUSCULOSKELETAL/RHEUMATOLOGICAL: Denies any joint pain, swelling, or any muscle pain. ENDOCRINE: Denies any polyuria or polydipsia. The rest of the 14-point review of systems is negative. Past Medical History Past Medical History: Asthma, Diabetes Mellitus, GERD/Reflux, Syncope Additional Past Medical History / Comment(s): back pain- BULGING DISC, ovarian cyst, HX OF DKA,DM TYPE 1(FOR APPROX PAST 9 YEARS) History of Any Multi-Drug Resistant Organisms: MRSA Date of last positivie culture/infection: 03/2014 MDRO Source:: GROIN AREA Past Surgical History: No Surgical Hx Reported Past Anesthesia/Blood Transfusion Reactions: No Reported Reaction Past Psychological History: No Psychological Hx Reported Smoking Status: Current some day smoker Past Alcohol Use History: None Reported Past Drug Use History: None Reported - Past Family History Mother History Unknown: Yes Father Family Medical History: Diabetes Mellitus Medications and Allergies Home Medications Medication Instructions Recorded Confirmed Type Naproxen Sodium 550 tab PO BID PRN 10/31/14 12/20/16 History Insulin Aspart [NovoLOG] See Protocol SQ ACHS 12/03/16 12/20/16 History Insulin Glargine [Lantus] 25 units SQ HS #0 12/21/16 12/20/16 Rx Ranitidine HCl [Zantac] 150 mg PO BID #30 tab 12/21/16 Rx Allergies Allergy/AdvReac Type Severity Reaction Status Date / Time Sulfa (Sulfonamide AdvReac Nausea & Verified 12/20/16 17:59 Antibiotics) Vomiting sulfamethoxazole AdvReac Nausea & Verified 12/20/16 17:59 [From Bactrim] Vomiting trimethoprim [From Bactrim] AdvReac Nausea & Verified 12/20/16 17:59 Vomiting Physical Exam Vitals: Vital Signs Temp Pulse Pulse Resp BP BP Pulse Ox 12/21/16 12:00 98.4 F 94 16 109/78 100 12/21/16 08:00 97 F L 95 14 98 12/21/16 04:00 97.7 F 81 18 97/58 100 12/21/16 00:00 98.5 F 85 18 93/59 99 12/20/16 20:30 99.0 F 99 18 95/49 99 12/20/16 19:55 98.1 F 99 18 128/70 100 12/20/16 19:01 114 H 18 130/71 100 12/20/16 18:13 98.2 F 100 16 115/70 100 12/20/16 17:36 98.2 F 108 H 22 132/82 99 Intake and Output 12/20/16 12/21/16 12/21/16 22:59 06:59 14:59 Intake Total 990 485 Balance 990 485 Intake: Intake, IV Titration 750 125 Amount D5-0.45% NaCl with KCl 150 25 20Meq/l 1,000 ml @ 50 mls /hr IV .Q20H JAMAL Rx#: [id number] Sodium Chloride 0.9% 1, 600 100 000 ml @ 200 mls/hr IV . Q5H JAMAL Rx#:[id number] Oral 240 360 Other: Voiding Method Toilet Toilet # Voids 1 1 Weight 65.771 kg 62.6 kg 62.6 kg Patient Weight 12/22/16 06:59 Weight 62.6 kg GENERAL: Well-appearing, well-nourished and in no acute distress. HEAD: Atraumatic, normocephalic. EYES: Pupils equal round and reactive to light, extraocular movements intact, sclera anicteric, conjunctiva are normal. ENT: TMs normal, nares patent, oropharynx clear without exudates. Moist mucous membranes. NECK: Normal range of motion, supple without lymphadenopathy or JVD. LUNGS: Breath sounds clear to auscultation bilaterally and equal. No wheezes rales or rhonchi. HEART: Regular rate and rhythm without murmurs, rubs or gallops. ABDOMEN: Soft, nontender, normoactive bowel sounds. No guarding, no rebound. No masses appreciated. EXTREMITIES: Normal range of motion, no pitting or edema. No clubbing or cyanosis. NEUROLOGICAL: Cranial nerves II through XII grossly intact. Normal speech, normal gait. PSYCH: Normal mood, normal affect. SKIN: Warm, Dry, normal turgor, no rashes or lesions noted. Results CBC & Chem 7: 12/20/16 18:00 12/21/16 01:53 Labs: Abnormal Lab Results - Last 24 Hours (Table) 12/20/16 12/20/16 12/20/16 Range/Units 17:34 18:00 18:00 Hct 46.2 H (34.0-46.0) % MCV 108.2 H D (80.0-100.0) fL MCHC 30.1 L (31.0-37.0) g/dL RDW 16.8 H (11.5-15.5) % Plt Count 603 H (150-450) k/uL Chloride (98-107) mmol/L Carbon Dioxide <5 L* (22-30) mmol/L Creatinine (0.52-1.04) mg/dL Glucose 422 H (74-99) mg/dL POC Glucose (mg/dL) 506 H (75-99) mg/dL Hemoglobin A1c (4.2-6.1) % AST 101 H (14-36) U/L ALT 232 H (9-52) U/L Alkaline Phosphatase 594 H (38-126) U/L Urine Protein (Negative) Urine Glucose (UA) (Negative) Urine Ketones (Negative) Ur Leukocyte Esterase (Negative) Urine WBC (0-5) /hpf Urine Mucus (None) /hpf 12/20/16 12/20/16 12/20/16 Range/Units 18:00 18:00 18:38 Hct (34.0-46.0) % MCV (80.0-100.0) fL MCHC (31.0-37.0) g/dL RDW (11.5-15.5) % Plt Count (150-450) k/uL Chloride (98-107) mmol/L Carbon Dioxide (22-30) mmol/L Creatinine (0.52-1.04) mg/dL Glucose (74-99) mg/dL POC Glucose (mg/dL) 249 H (75-99) mg/dL Hemoglobin A1c 10.1 H (4.2-6.1) % AST (14-36) U/L ALT (9-52) U/L Alkaline Phosphatase (38-126) U/L Urine Protein 1+ H (Negative) Urine Glucose (UA) 4+ H (Negative) Urine Ketones 4+ H (Negative) Ur Leukocyte Esterase Small H (Negative) Urine WBC 9 H (0-5) /hpf Urine Mucus Rare H (None) /hpf 12/20/16 12/20/16 12/20/16 Range/Units 19:35 20:51 22:17 Hct (34.0-46.0) % MCV (80.0-100.0) fL MCHC (31.0-37.0) g/dL RDW (11.5-15.5) % Plt Count (150-450) k/uL Chloride 110 H (98-107) mmol/L Carbon Dioxide 13 L (22-30) mmol/L Creatinine 0.51 L (0.52-1.04) mg/dL Glucose (74-99) mg/dL POC Glucose (mg/dL) 169 H 148 H (75-99) mg/dL Hemoglobin A1c (4.2-6.1) % AST (14-36) U/L ALT (9-52) U/L Alkaline Phosphatase (38-126) U/L Urine Protein (Negative) Urine Glucose (UA) (Negative) Urine Ketones (Negative) Ur Leukocyte Esterase (Negative) Urine WBC (0-5) /hpf Urine Mucus (None) /hpf 12/21/16 12/21/16 12/21/16 Range/Units 01:53 03:08 05:21 Hct (34.0-46.0) % MCV (80.0-100.0) fL MCHC (31.0-37.0) g/dL RDW (11.5-15.5) % Plt Count (150-450) k/uL Chloride 113 H (98-107) mmol/L Carbon Dioxide 14 L (22-30) mmol/L Creatinine 0.40 L (0.52-1.04) mg/dL Glucose 72 L (74-99) mg/dL POC Glucose (mg/dL) 112 H 223 H (75-99) mg/dL Hemoglobin A1c (4.2-6.1) % AST (14-36) U/L ALT (9-52) U/L Alkaline Phosphatase (38-126) U/L Urine Protein (Negative) Urine Glucose (UA) (Negative) Urine Ketones (Negative) Ur Leukocyte Esterase (Negative) Urine WBC (0-5) /hpf Urine Mucus (None) /hpf 12/21/16 12/21/16 12/21/16 Range/Units 05:51 09:39 11:14 Hct (34.0-46.0) % MCV (80.0-100.0) fL MCHC (31.0-37.0) g/dL RDW (11.5-15.5) % Plt Count (150-450) k/uL Chloride (98-107) mmol/L Carbon Dioxide (22-30) mmol/L Creatinine (0.52-1.04) mg/dL Glucose (74-99) mg/dL POC Glucose (mg/dL) 221 H 588 H 382 H (75-99) mg/dL Hemoglobin A1c (4.2-6.1) % AST (14-36) U/L ALT (9-52) U/L Alkaline Phosphatase (38-126) U/L Urine Protein (Negative) Urine Glucose (UA) (Negative) Urine Ketones (Negative) Ur Leukocyte Esterase (Negative) Urine WBC (0-5) /hpf Urine Mucus (None) /hpf Microbiology - Last 24 Hours (Table) 12/20/16 18:00 Urine Culture - Preliminary Urine,Voided Thrombosis Risk Factor Assmnt - Choose All That Apply Any of the Below Risk Factors Present?: No Other Risk Factors: No Other congenital or acquired thrombophilia - If yes, enter type in comment: No Thrombosis Risk Factor Assessment Level: Very Low Risk Assessment and Plan Plan: #1 diabetic ketoacidosis: Ketoacidosis resolved patient will be resumed on Lantus will transition with the NPH now as she takes her schedule Lantus at nighttime. Patient will be continued on IV fluids patient was asked to take Lantus later today. #2 mild elevated liver enzymes: Due to DKA will obtain repeat liver enzymes again make sure they're trending down before discharge. #3 type 1 diabetes mellitus uncontrolled blood sugars probably due to noncompliance. #4 asthma: Without any acute exacerbation #5 macrocytosis: Will need further evaluation as an outpatient will need a B12 level and as an outpatient next and #gastroesophageal reflux disease
[2016-12-21 14:54] LABS: ALT 164 U/L (9-52); AST 165 U/L (14-36); Alkaline Phosphatase 381 U/L (38-126); Anion Gap 16 mmol/L; Blood Urea Nitrogen 10 mg/dL (7-17); Calcium 8.1 mg/dL (8.4-10.2); Carbon Dioxide 11 mmol/L (22-30); Chloride 109 mmol/L (98-107); Glucose 162 mg/dL (74-99); Non-African American GFR(MDRD) >60 (>60 ml/min/1.73 sqM); Potassium 4.2 mmol/L (3.5-5.1); Sodium 136 mmol/L (137-145); Total Bilirubin 0.2 mg/dL (0.2-1.3); Total Protein 5.5 g/dL (6.3-8.2)
[2016-12-21] MEDS ORDERED: INSULIN GLARGINE 100 UNIT/ML 10 ML VIAL SQ SCH (22:00)
== END 2016-12-21 15:30 | disposition home or self-care (01) | DRG 420 ==
LOC: EC 17:22 → 6SEL 18:48
PROVIDERS: ADMIT Hospitalist; ATTEND Hospitalist
DX: E10.10 Type 1 diabetes mellitus with ketoacidosis without coma (principal); D75.89 Other specified diseases of blood and blood-forming organs; F17.200 Nicotine dependence, unspecified, uncomplicated; G43.909 Migraine, unspecified, not intractable, without status migrainosus; J45.909 Unspecified asthma, uncomplicated; K21.9 Gastro-esophageal reflux disease without esophagitis; N83.209 Unspecified ovarian cyst, unspecified side; R74.8 Abnormal levels of other serum enzymes; M54.9 Dorsalgia, unspecified; Z79.4 Long term (current) use of insulin; Z91.14 Patient's other noncompliance with medication regimen; Z88.1 Allergy status to other antibiotic agents; Z88.2 Allergy status to sulfonamides; Z86.14 Personal history of Methicillin resistant Staphylococcus aureus infection
CPT/HCPCS: 36415; 80051; 80053; 80306; 81001; 81025; 82009; 82565; 82947; 83036; 84100; 84520; 85025; 87086; 96361; 96374; 96375; 99285

== ENCOUNTER 2017-03-26 13:21 | Inpatient (IN) | payer OTHER ==
[2017-03-26 13:42] LABS: Glucose,Whole Blood 242 mg/dL (75-99)
[2017-03-26] MEDS ORDERED: SODIUM CHLORIDE 0.9% 2,000 ML IV STA (13:48)
[2017-03-26] MEDS ORDERED: ONDANSETRON 4 MG/2 ML VIAL IVP STA (13:48)
--- NOTE | 2017-03-26 13:49 | ED ---
Nausea/Vomiting/Diarrhea HPI - General Chief complaint: Nausea/Vomiting/Diarrhea Stated complaint: post op vomiting Time Seen by Provider: 03/26/17 13:45 Source: patient Mode of arrival: wheelchair Limitations: no limitations - History of Present Illness Initial comments: Patient complains of nausea and vomiting. She has a history of diabetes. She thinks she might be in DKA. She denies any chest pain or pressure. She has no cough or runny nose. She has generalized myalgias. She denies any specific abdominal pain. She has no diarrhea. She has no blood in her vomit. She has been feeling terrible all day. Nothing makes her symptoms better or worse. She did not take any medication for this. - Related Data Home Medications Medication Instructions Recorded Confirmed Insulin Aspart [NovoLOG See Protocol SQ ACHS 12/03/16 03/26/17 (formulary)] Insulin Glargine [Lantus] 12 units SQ HS 02/21/17 03/26/17 Allergies Allergy/AdvReac Type Severity Reaction Status Date / Time red dye AdvReac Intermediate Nausea & Verified 03/26/17 14:00 Vomiting Sulfa (Sulfonamide AdvReac Nausea & Verified 03/26/17 14:00 Antibiotics) Vomiting sulfamethoxazole AdvReac Nausea & Verified 03/26/17 14:00 [From Bactrim] Vomiting trimethoprim [From Bactrim] AdvReac Nausea & Verified 03/26/17 14:00 Vomiting Review of Systems ROS Statement: Those systems with pertinent positive or pertinent negative responses have been documented in the HPI. ROS Other: All systems not noted in ROS Statement are negative. Past Medical History Past Medical History: Asthma, Diabetes Mellitus, GERD/Reflux, Syncope Additional Past Medical History / Comment(s): back pain- BULGING DISC, ovarian cyst, HX OF DKA,DM TYPE 1(FOR APPROX PAST 9 YEARS) History of Any Multi-Drug Resistant Organisms: MRSA Date of last positivie culture/infection: 03/2014 MDRO Source:: GROIN AREA Past Surgical History: Cholecystectomy Past Anesthesia/Blood Transfusion Reactions: No Reported Reaction Past Psychological History: No Psychological Hx Reported Smoking Status: Former smoker Past Alcohol Use History: None Reported Past Drug Use History: Marijuana - Past Family History Mother History Unknown: Yes Family Medical History: No Reported History Additional Family Medical History / Comment(s): Mother is healthy Father Family Medical History: Diabetes Mellitus General Exam Limitations: no limitations General appearance: alert, in no apparent distress Head exam: Present: atraumatic, normocephalic, normal inspection Eye exam: Present: normal appearance, PERRL, EOMI. Absent: scleral icterus, conjunctival injection, periorbital swelling ENT exam: Present: normal exam, mucous membranes moist Neck exam: Present: normal inspection. Absent: tenderness, meningismus, lymphadenopathy Respiratory exam: Present: normal lung sounds bilaterally. Absent: respiratory distress, wheezes, rales, rhonchi, stridor Cardiovascular Exam: Present: regular rate, normal rhythm, normal heart sounds. Absent: systolic murmur, diastolic murmur, rubs, gallop, clicks GI/Abdominal exam: Present: soft, normal bowel sounds. Absent: distended, tenderness, guarding, rebound, rigid Extremities exam: Present: normal inspection, full ROM, normal capillary refill. Absent: tenderness, pedal edema, joint swelling, calf tenderness Back exam: Present: normal inspection Neurological exam: Present: alert, oriented X3, CN II-XII intact Psychiatric exam: Present: normal affect, normal mood Skin exam: Present: warm, dry, intact, normal color. Absent: rash Course Vital Signs 03/26/17 03/26/17 03/26/17 13:32 14:27 15:44 Temperature 97.9 F Pulse Rate 118 H 119 H 109 H Respiratory 20 20 20 Rate Blood Pressure 117/83 118/77 127/86 O2 Sat by Pulse 100 100 100 Oximetry Medical Decision Making - Medical Decision Making Laboratory studies are interpreted by me showing a metabolic acidosis. However , her glucose is not significantly elevated. I ordered her additional IV fluids. I discussed with the ICU attending, who does not feel the patient requires ICU admission. Patient will be admitted to the hospital. - Lab Data Result diagrams: 03/26/17 14:05 03/26/17 14:05 Lab Results 03/26/17 03/26/17 03/26/17 Range/Units 13:39 14:05 14:05 WBC 3.9 L (4.0-11.0) k/uL RBC 5.03 (3.80-5.40) m/uL Hgb 15.4 D (11.4-16.0) gm/dL Hct 51.6 H (34.0-46.0) % MCV 102.7 H (80.0-100.0) fL MCH 30.6 (25.0-35.0) pg MCHC 29.8 L (31.0-37.0) g/dL RDW 16.7 H (11.5-15.5) % Plt Count 449 (150-450) k/uL Neutrophils % (Manual) 60 % Lymphocytes % (Manual) 34 % Monocytes % (Manual) 5 % Eosinophils % (Manual) 1 % Neutrophils # (Manual) 2.34 (1.3-7.7) k/uL Lymphocytes # (Manual) 1.33 (1.0-4.8) k/uL Monocytes # (Manual) 0.20 (0-1.0) k/uL Eosinophils # (Manual) 0.04 (0-0.7) k/uL Nucleated RBCs 0 (0-0) /100 WBC Manual Slide Review Performed Hypochromasia Marked Poikilocytosis Slight Anisocytosis Slight Macrocytosis Moderate Sodium 149 H (137-145) mmol/L Potassium 3.8 (3.5-5.1) mmol/L Chloride 108 H (98-107) mmol/L Carbon Dioxide 6 L* (22-30) mmol/L Anion Gap 35 mmol/L BUN 14 (7-17) mg/dL Creatinine 0.64 (0.52-1.04) mg/dL Est GFR (MDRD) Af Amer >60 (>60 ml/min/1.73 sqM) Est GFR (MDRD) Non-Af >60 (>60 ml/min/1.73 sqM) Glucose 127 H (74-99) mg/dL POC Glucose (mg/dL) 242 H (75-99) mg/dL POC Glu Rfid Manager ID Cristina Hobbs Calcium 10.0 (8.4-10.2) mg/dL Total Bilirubin 0.5 (0.2-1.3) mg/dL AST 241 H (14-36) U/L ALT 322 H (9-52) U/L Alkaline Phosphatase 675 H (38-126) U/L Total Protein 8.2 (6.3-8.2) g/dL Albumin 5.1 H (3.5-5.0) g/dL Lipase (23-300) U/L Urine Color Urine Appearance (Clear) Urine pH (5.0-8.0) Ur Specific Korbel (1.001-1.035) Urine Protein (Negative) Urine Glucose (UA) (Negative) Urine Ketones (Negative) Urine Blood (Negative) Urine Nitrite (Negative) Urine Bilirubin (Negative) Urine Urobilinogen (<2.0) mg/dL Ur Leukocyte Esterase (Negative) Urine RBC (0-5) /hpf Urine WBC (0-5) /hpf Ur Squamous Epith Cells (0-4) /hpf Amorphous Sediment (None) /hpf Granular Casts (0) /lpf Urine Mucus (None) /hpf Urine Yeast (Budding) (None) /hpf Urine HCG, Qual (Not Detectd) Acetone, Qual (Negative) 03/26/17 03/26/17 03/26/17 Range/Units 14:05 14:05 14:59 WBC (4.0-11.0) k/uL RBC (3.80-5.40) m/uL Hgb (11.4-16.0) gm/dL Hct (34.0-46.0) % MCV (80.0-100.0) fL MCH (25.0-35.0) pg MCHC (31.0-37.0) g/dL RDW (11.5-15.5) % Plt Count (150-450) k/uL Neutrophils % (Manual) % Lymphocytes % (Manual) % Monocytes % (Manual) % Eosinophils % (Manual) % Neutrophils # (Manual) (1.3-7.7) k/uL Lymphocytes # (Manual) (1.0-4.8) k/uL Monocytes # (Manual) (0-1.0) k/uL Eosinophils # (Manual) (0-0.7) k/uL Nucleated RBCs (0-0) /100 WBC Manual Slide Review Hypochromasia Poikilocytosis Anisocytosis Macrocytosis Sodium (137-145) mmol/L Potassium (3.5-5.1) mmol/L Chloride (98-107) mmol/L Carbon Dioxide (22-30) mmol/L Anion Gap mmol/L BUN (7-17) mg/dL Creatinine (0.52-1.04) mg/dL Est GFR (MDRD) Af Amer (>60 ml/min/1.73 sqM) Est GFR (MDRD) Non-Af (>60 ml/min/1.73 sqM) Glucose (74-99) mg/dL POC Glucose (mg/dL) (75-99) mg/dL POC Glu Rfid Manager ID Calcium (8.4-10.2) mg/dL Total Bilirubin (0.2-1.3) mg/dL AST (14-36) U/L ALT (9-52) U/L Alkaline Phosphatase (38-126) U/L Total Protein (6.3-8.2) g/dL Albumin (3.5-5.0) g/dL Lipase 96 (23-300) U/L Urine Color Urine Appearance (Clear) Urine pH (5.0-8.0) Ur Specific Korbel (1.001-1.035) Urine Protein (Negative) Urine Glucose (UA) (Negative) Urine Ketones (Negative) Urine Blood (Negative) Urine Nitrite (Negative) Urine Bilirubin (Negative) Urine Urobilinogen (<2.0) mg/dL Ur Leukocyte Esterase (Negative) Urine RBC (0-5) /hpf Urine WBC (0-5) /hpf Ur Squamous Epith Cells (0-4) /hpf Amorphous Sediment (None) /hpf Granular Casts (0) /lpf Urine Mucus (None) /hpf Urine Yeast (Budding) (None) /hpf Urine HCG, Qual Not Detected (Not Detectd) Acetone, Qual Positive (Negative) 03/26/17 Range/Units 14:59 WBC (4.0-11.0) k/uL RBC (3.80-5.40) m/uL Hgb (11.4-16.0) gm/dL Hct (34.0-46.0) % MCV (80.0-100.0) fL MCH (25.0-35.0) pg MCHC (31.0-37.0) g/dL RDW (11.5-15.5) % Plt Count (150-450) k/uL Neutrophils % (Manual) % Lymphocytes % (Manual) % Monocytes % (Manual) % Eosinophils % (Manual) % Neutrophils # (Manual) (1.3-7.7) k/uL Lymphocytes # (Manual) (1.0-4.8) k/uL Monocytes # (Manual) (0-1.0) k/uL Eosinophils # (Manual) (0-0.7) k/uL Nucleated RBCs (0-0) /100 WBC Manual Slide Review Hypochromasia Poikilocytosis Anisocytosis Macrocytosis Sodium (137-145) mmol/L Potassium (3.5-5.1) mmol/L Chloride (98-107) mmol/L Carbon Dioxide (22-30) mmol/L Anion Gap mmol/L BUN (7-17) mg/dL Creatinine (0.52-1.04) mg/dL Est GFR (MDRD) Af Amer (>60 ml/min/1.73 sqM) Est GFR (MDRD) Non-Af (>60 ml/min/1.73 sqM) Glucose (74-99) mg/dL POC Glucose (mg/dL) (75-99) mg/dL POC Glu Rfid Manager ID Calcium (8.4-10.2) mg/dL Total Bilirubin (0.2-1.3) mg/dL AST (14-36) U/L ALT (9-52) U/L Alkaline Phosphatase (38-126) U/L Total Protein (6.3-8.2) g/dL Albumin (3.5-5.0) g/dL Lipase (23-300) U/L Urine Color Light Yellow Urine Appearance Cloudy H (Clear) Urine pH 5.5 (5.0-8.0) Ur Specific Korbel 1.016 (1.001-1.035) Urine Protein 2+ H (Negative) Urine Glucose (UA) 4+ H (Negative) Urine Ketones 4+ H (Negative) Urine Blood Small H (Negative) Urine Nitrite Negative (Negative) Urine Bilirubin 1+ H (Negative) Urine Urobilinogen 2.0 (<2.0) mg/dL Ur Leukocyte Esterase Negative (Negative) Urine RBC 2 (0-5) /hpf Urine WBC 2 (0-5) /hpf Ur Squamous Epith Cells 2 (0-4) /hpf Amorphous Sediment Occasional H (None) /hpf Granular Casts 14 (0) /lpf Urine Mucus Occasional H (None) /hpf Urine Yeast (Budding) Occasional H (None) /hpf Urine HCG, Qual (Not Detectd) Acetone, Qual (Negative) Disposition Clinical Impression: Metabolic acidosis Disposition: ADMITTED IP TO THIS [facility] Condition: Fair Referrals: Deborah Stearns MD [Primary Care Provider] - 1-2 days Time of Disposition: 15:56
[2017-03-26 14:33] LABS: ALT 322 U/L (9-52); AST 241 U/L (14-36); Albumin 5.1 g/dL (3.5-5.0); Alkaline Phosphatase 675 U/L (38-126); Anion Gap 35 mmol/L; Blood Urea Nitrogen 14 mg/dL (7-17); Chloride 108 mmol/L (98-107); Glucose 127 mg/dL (74-99); Potassium 3.8 mmol/L (3.5-5.1); Sodium 149 mmol/L (137-145); Total Bilirubin 0.5 mg/dL (0.2-1.3); Total Protein 8.2 g/dL (6.3-8.2)
[2017-03-26 14:44] LABS: Carbon Dioxide 6 mmol/L (22-30)
--- NOTE | 2017-03-26 14:55 | XR ---
EXAMINATION TYPE: XR chest 2V DATE OF EXAM: 03/26/2017 COMPARISON: February 21, 2017 HISTORY: Chest pain TECHNIQUE: Frontal and lateral views of the chest are obtained. FINDINGS: There is no focal air space opacity. No evidence for pneumothorax. No pleural effusion. The cardiac silhouette size is within normal limits. The osseous structures are grossly intact. IMPRESSION: 1. No acute cardiopulmonary process.
[2017-03-26 14:56] LABS: Anisocytosis Slight; HCT 51.6 % (34.0-46.0); Hypochromasia Marked; MCH 30.6 pg (25.0-35.0); MCHC 29.8 g/dL (31.0-37.0); MCV 102.7 fL (80.0-100.0); Macrocytosis Moderate; Mean Platelet Volume 8.1; Platelet Count 449 k/uL (150-450); Poikilocytosis Slight; RBC 5.03 m/uL (3.80-5.40); RDW 16.7 % (11.5-15.5); WBC 3.9 k/uL (4.0-11.0)
[2017-03-26 14:57] LABS: HGB 15.4 gm/dL (11.4-16.0)
[2017-03-26 15:25] LABS: Amorphous Sediment,Urine Occasional /hpf; Appearance,Urine Cloudy (Clear); Bilirubin,Urine 1+ (Negative); Blood,Urine Small (Negative); Budding Yeast,Urine Occasional /hpf; Color,Urine Light Yellow; Glucose,Urine (UA) 4+ (Negative); Granular Casts,Urine 14 /lpf (0); Leukocyte Esterase,Urine Negative (Negative); Mucus,Urine Occasional /hpf; Nitrite,Urine Negative (Negative); PH, Urine 5.5 (5.0-8.0); Protein,Urine 2+ (Negative); RBC,Urine 2 /hpf (0-5); Specific Gravity,Urine 1.016 (1.001-1.035); Squamous Epithelial Cell,Urine 2 /hpf (0-4); WBC,Urine 2 /hpf (0-5)
[2017-03-26 15:26] LABS: Ketones,Urine 4+ (Negative)
[2017-03-26 15:27] LABS: Eosinophils # (M) 0.04 k/uL (0-0.7); Lymphocytes # (M) 1.33 k/uL (1.0-4.8); Neutrophils # (M) 2.34 k/uL (1.3-7.7); Neutrophils % (M) 60 %; Nucleated Red Blood Cells 0 /100 WBC (0-0); Total Cells Counted 100
[2017-03-26] MEDS ORDERED: RX INFO: IV CONTRAST WAS GIVEN 1 EACH MISC MISCELLANE PRN (15:30)
[2017-03-26] MEDS ORDERED: IOHEXOL 350 MG/ML 25 ML BOTTLE (ORAL USE) PO PRN (15:30)
--- NOTE | 2017-03-26 15:48 | US ---
EXAMINATION TYPE: US abdomen limited DATE OF EXAM: 03/26/2017 COMPARISON: NONE CLINICAL HISTORY: RUQ pain. gallbladder removed 02/25/2017 EXAM MEASUREMENTS: Liver Length: 21.9 cm Gallbladder Wall: Surgically absent cm CBD: 0.5 cm Right Kidney: 12.9 x 4.4 x 4.7 cm Pancreas: not visualized due to midline bowel gas Liver: appears grossly enlarged, measures 21.9 cm Gallbladder: Surgically absent CBD: wnl Right Kidney: No hydronephrosis or masses seen IMPRESSION: 1. Hepatomegaly
[2017-03-26] MEDS ORDERED: SODIUM CHLORIDE 0.9% 1,000 ML IV STA (15:54)
[2017-03-26] MEDS ORDERED: NALOXONE 0.4 MG/ML 1 ML VIAL IV PRN (15:56)
[2017-03-26] MEDS ORDERED: ONDANSETRON 4 MG/2 ML VIAL IVP PRN (15:56)
[2017-03-26] MEDS: SODIUM CHLORIDE 0.9% 1,000 ML IV SCH ×2 (17:27→19:56)
--- NOTE | 2017-03-26 18:19 | CT ---
EXAMINATION TYPE: CT abdomen pelvis w con DATE OF EXAM: 03/26/2017 COMPARISON: 02/21/2017 HISTORY: Post op vomiting. Patient having stomach pains. CT DLP: 454.60 mGycm Automated exposure control for dose reduction was used. TECHNIQUE: Helical acquisition of images was performed from the lung bases through the pelvis. CONTRAST: Performed with Oral Contrast and with IV Contrast, patient injected with 100 mL of Omnipaque 300. FINDINGS: LUNG BASES: No significant abnormality is appreciated. LIVER/GB: Wraparound hepatomegaly redemonstrated. No significant abnormality is appreciated. PANCREAS: No significant abnormality is seen. SPLEEN: No significant abnormality is seen. ADRENALS: No significant abnormality is seen. KIDNEYS: No significant abnormality is seen. PERITONEAL CAVITY: Is no pneumoperitoneum. Small volume of simple appearing dependent cul-de-sac flu id is noted in the pelvis. RETROPERITONEAL ADENOPATHY: None visualized REPRODUCTIVE ORGANS: No significant abnormality is seen URINARY BLADDER: No significant abnormality is seen. PELVIC ADENOPATHY: None visualized. OSSEOUS STRUCTURES: No significant abnormality is seen. BOWEL: Oral contrast reached the ileum and the ascending colon to the juncture of the hepatic flexur e with the transverse colon. The striking finding is a massive volume of stool throughout the colon i ncluding the rectosigmoid. OTHER: No incidentals. IMPRESSION: 1. STOOL IMPACTION. 2. WRAPAROUND HEPATOMEGALY REDEMONSTRATED.
[2017-03-26 18:36] LABS: Glucose,Whole Blood 100 mg/dL (75-99)
[2017-03-26] MEDS: INSULIN ASPART 100 UNIT/ML 1 ML 10 ML VIAL SQ SCH ×2 (18:56→19:56)
[2017-03-26 19:47] LABS: Glucose,Whole Blood 331 mg/dL (75-99)
[2017-03-26] MEDS: FAMOTIDINE 20 MG TAB PO SCH (19:56)
[2017-03-26] MEDS ORDERED: NA PHOS,M-B/NA PHOS,DI-BA 133 ML ENEMA RECTAL ONE (20:23)
[2017-03-26] MEDS ORDERED: INSULIN DETEMIR 100 UNIT/ML 10 ML VIAL SQ SCH (21:00)
--- NOTE | 2017-03-26 22:30 | HP ---
HISTORY AND PHYSICAL CHIEF COMPLAINT: A 21-year-old white female with nausea, vomiting, diarrhea. HISTORY OF PRESENT ILLNESS: This 21-year-old white female who comes in once a month for abdominal pain and DKA, nausea, vomiting. At this time she is unable to have a bowel movement, severe abdominal distention. For 2-3 days she has been vomiting. Any food makes her worse. HOME MEDICINES: Novolog, protocol, Lantus 12 units subcu q.h.s. ALLERGIES: RED DYE, SULFA, BACTRIM. REVIEW OF SYSTEMS: 14-point review of system negative except for mentioned in HPI. PAST MEDICAL HISTORY: Asthma, diabetes mellitus type 1, GERD, syncope, DKA type 1, ovarian cysts, lumbar disc disease, surgery cholecystectomy. SOCIAL HISTORY: Former smoker. Uses marijuana. No alcohol. FAMILY HISTORY: Mother negative. Father diabetes mellitus. PHYSICAL EXAM: Vital signs stable. Afebrile. HEENT within normal limits. Some mild upper facial abrasions from picking. Cardiovascular S1-S2. LUNGS: Clear. GI is distended due to obesity. Decreased bowel sounds. Hematology negative Homans. Psych fair mood. Flat mood and affect. Appears lethargic. NEUROLOGIC: Alert and oriented x3. Temp 97.9, heart rate is 109 to 119, blood pressure 117 to 127 over 80s to 70s, O2 is 100% on room air. CT scan of the abdomen shows multiple abdominal swelling and abrasions, severe constipation. ASSESSMENT: 1. Metabolic acidosis. 2. Diabetic ketoacidosis. 3. Constipation. 4. Liver enzyme elevation of unclear etiology. 5. Hepatomegaly, unclear etiology. Gastroenterology and surgical consult. MMODL / IJN: [id number] /
[2017-03-27 00:38] LABS: Anion Gap 22 mmol/L; Blood Urea Nitrogen 12 mg/dL (7-17); Calcium 8.4 mg/dL (8.4-10.2); Carbon Dioxide 11 mmol/L (22-30); Chloride 106 mmol/L (98-107); Glucose 111 mg/dL (74-99); Magnesium 1.5 mg/dL (1.6-2.3); Phosphorus 3.3 mg/dL (2.5-4.5); Potassium 3.7 mmol/L (3.5-5.1); Sodium 139 mmol/L (137-145)
[2017-03-27 01:02] LABS: Glucose,Whole Blood 118 mg/dL (75-99)
[2017-03-27 06:08] LABS: Glucose,Whole Blood 26 mg/dL (75-99)
[2017-03-27 06:14] LABS: Glucose,Whole Blood 31 mg/dL (75-99)
[2017-03-27] MEDS: INSULIN ASPART 100 UNIT/ML 1 ML 10 ML VIAL SQ SCH ×4 (06:20→20:11)
[2017-03-27 06:54] LABS: HCT 32.5 % (34.0-46.0); MCHC 31.4 g/dL (31.0-37.0); MCV 98.7 fL (80.0-100.0); Macrocytosis Slight; Mean Platelet Volume 7.5; Platelet Count 259 k/uL (150-450); Poikilocytosis Slight; RDW 15.8 % (11.5-15.5); WBC 5.7 k/uL (4.0-11.0)
[2017-03-27 06:55] LABS: HGB 10.2 gm/dL (11.4-16.0)
[2017-03-27 06:55] LABS: Glucose,Whole Blood 81 mg/dL (75-99)
[2017-03-27 06:58] LABS: ALT 184 U/L (9-52); AST 117 U/L (14-36); Albumin 2.7 g/dL (3.5-5.0); Alkaline Phosphatase 388 U/L (38-126); Anion Gap 9 mmol/L; Blood Urea Nitrogen 12 mg/dL (7-17); Calcium 8.6 mg/dL (8.4-10.2); Carbon Dioxide 20 mmol/L (22-30); Chloride 109 mmol/L (98-107); Potassium 3.5 mmol/L (3.5-5.1); Sodium 138 mmol/L (137-145); Total Bilirubin 0.2 mg/dL (0.2-1.3); Total Protein 4.8 g/dL (6.3-8.2)
[2017-03-27 07:27] LABS: Glucose <20 mg/dL (74-99)
[2017-03-27 07:50] LABS: Eosinophils # (M) 0.06 k/uL (0-0.7); Lymphocytes # (M) 3.31 k/uL (1.0-4.8); Monocytes # (M) 0.29 k/uL (0-1.0); Neutrophils # (M) 2.05 k/uL (1.3-7.7); Neutrophils % (M) 36 %; Nucleated Red Blood Cells 0 /100 WBC (0-0); Total Cells Counted 100
[2017-03-27] MEDS: SODIUM CHLORIDE 0.9% 1,000 ML IV SCH (08:47)
[2017-03-27] MEDS: FAMOTIDINE 20 MG TAB PO SCH ×2 (08:53→20:10)
[2017-03-27 10:21] VITALS: BMI 22.6
[2017-03-27] MEDS ORDERED: MAGNESIUM HYDROXIDE 2,400 MG/10 ML CUP PO PRN ×2 (10:32)
--- NOTE | 2017-03-27 10:45 | P.CONS ---
History of Present Illness - Reason for Consult Consult date: 03/27/17 Elevated liver enzymes Requesting physician: Nikhil Hauser - History of Present Illness 21-year-old female admitted with intractable nausea vomiting midepigastric abdominal pain constipation 1 day with a history of long-standing insulin- dependent diabetes mellitus, bronchial asthma, MRSA in groin wound 2014, chronic left foot drop, migraines, GERD, recent EGD 02/24/2017; gastritis and cholecystectomy 02/24/2017 pathology reported chronic cholecystitis both procedures performed by Dr. Bess, brain lesion being evaluated in the outpatient setting was scheduled MRI in 2 weeks. Admission glucose 127. Acetone positive. HCG negative. Admission total bilirubin 0.5. AST 241. ALT 322. Alkaline phosphatase 675. CT abdomen and pelvis reported hepatomegaly redemonstrated with no significant abnormality seen in the pancreas spleen. Fecal stasis/stool impaction. Recent hospitalization one month ago for abdominal pain nausea vomiting DKA. She was seen by the GI service last month in regards to chronic elevation of liver enzymes. She has no history of known liver disorders or hepatitis. No history of alcohol or intravenous drug abuse. MRCP possible outpatient liver biopsy was recommended however MRCP was not able to be performed secondary to recent cholecystectomy. She was scheduled to be reevaluated in the GI office on 03/20/2017 but canceled her appointment. When reviewing medical records her enzymes have been elevated since November 2016 with unremarkable bilirubin. Full serologic workup for chronic liver disease was initiated last month with unremarkable results. Hepatitis and HIV screen nonreactive. CMV nonreactive. EBV early antigen IgG negative. SYLVIA negative. Smooth muscle 5. Mitochondrial antibody 2.6. Protein electrophoresis 80% Iso-liver. No monoclonal paraproteins identified. Serum albumin range 2.7-5.5. LFT ranges over the last several months; Total bilirubin between 0.2-0.7. AST 79-2693. ALT 164-672. Alkaline phosphatase 253-1469. Lipase amylase within normal limits. AFP 8.1 on 02/21/2017. 02/21/2017 Ultrasound abdomen liver measured 19.6 cm. CBD 0.4 cm. Hyperechoic hepatic echotexture. No focal lesions mentioned. Small amount of dependent biliary sludge. No stones. 02/21/2017 CT abdomen and pelvis without contrast no significant abnormality appreciated in the gallbladder spleen or pancreas. Liver enlarged. Review of Systems Constitutional: Denies fever, chills, sweats, weight gain, or loss. HEENT: History of migraines denies, blurred vision or loss, earaches, drainage, tinnitus, oral mucosal lesions, dysphagia, or odynophagia. CARDIAC: Negative for chest pain, arrhythmias, or palpitation. RESPIRATORY: Bronchial asthma. Negative for shortness of breath, hemoptysis, cough, or sputum production. GI: See HPI for pertinent findings. : Negative for hematuria, urgency, frequency, polyuria, or dysuria. GYNc: Denies possibility of . Negative vaginal discharge. MUSCULOSKELETAL: History of chronic back pain. NEUROLOGIC: Negative for stroke or TIA. ENDOCRINE: Diabetes mellitus insulin-dependent. Negative for thyroid problems. SKIN: History of MRSA. Negative for rash or itching. PSYCHIATRIC: Negative history for depression and anxiety Past Medical History Past Medical History: Asthma, Diabetes Mellitus, GERD/Reflux, Syncope Additional Past Medical History / Comment(s): back pain- BULGING DISC, ovarian cyst, HX OF DKA,DM TYPE 1(FOR APPROX PAST 9 YEARS) History of Any Multi-Drug Resistant Organisms: MRSA Year Discovered:: 03/2014 MDRO Source:: GROIN AREA Past Surgical History: Cholecystectomy Past Anesthesia/Blood Transfusion Reactions: No Reported Reaction Smoking Status: Former smoker - Past Family History Mother History Unknown: Yes Family Medical History: No Reported History Additional Family Medical History / Comment(s): Mother is healthy Father Family Medical History: Diabetes Mellitus Medications and Allergies Home Medications Medication Instructions Recorded Confirmed Type Insulin Aspart [NovoLOG See Protocol SQ ACHS 12/03/16 03/26/17 History (formulary)] Insulin Glargine [Lantus] 12 units SQ HS 02/21/17 03/26/17 History Allergies Allergy/AdvReac Type Severity Reaction Status Date / Time red dye AdvReac Intermediate Nausea & Verified 03/26/17 14:00 Vomiting Sulfa (Sulfonamide AdvReac Nausea & Verified 03/26/17 14:00 Antibiotics) Vomiting sulfamethoxazole AdvReac Nausea & Verified 03/26/17 14:00 [From Bactrim] Vomiting trimethoprim [From Bactrim] AdvReac Nausea & Verified 03/26/17 14:00 Vomiting Physical Exam Vitals: Vital Signs Temp Pulse Pulse Resp BP BP Pulse Ox 03/27/17 08:45 98.3 F 93 12 100/55 100 03/27/17 04:00 97.1 F L 76 16 91/56 98 03/27/17 00:01 96 16 103/68 100 03/26/17 20:00 98.9 F 99 16 98/53 100 03/26/17 17:53 99.4 F 104 H 16 105/66 100 03/26/17 16:47 98.0 F 104 H 18 103/66 100 03/26/17 15:44 109 H 20 127/86 100 03/26/17 14:27 119 H 20 118/77 100 03/26/17 13:32 97.9 F 118 H 20 117/83 100 Intake and Output 03/26/17 03/27/17 03/27/17 22:59 06:59 14:59 Output Total 0 Balance 0 Output: Urine 0 Other: # Voids 2 Weight 61.7 kg General appearance: The patient is alert, oriented, in no acute distress. HET: Head is normocephalic and atraumatic. Pupils are equal and reactive. Oropharynx is clear without lesions. Neck: Supple without lymphadenopathy. Trachea midline. Heart: S1 S2. Regular rate and rhythm. Lungs: No crackles or wheezes are heard. Abdomen: Soft, mild tenderness in the midepigastrium, nondistended with bowel sounds. No peritoneal signs. Hepatomegaly 2 fingers below right subcostal margin. No palpable organomegaly or masses. Extremities: Normal skin color and turgor. No cyanosis, rash, ulceration, clubbing, or edema. Radial and pedal pulses are 2/4 bilaterally. Neurological: No focal deficits. Strength and sensation are grossly intact. Results CBC & Chem 7: 03/27/17 05:48 03/27/17 05:48 Labs: Abnormal Lab Results - Last 24 Hours (Table) 03/26/17 03/26/17 03/26/17 Range/Units 13:39 14:05 14:05 WBC 3.9 L (4.0-11.0) k/uL RBC (3.80-5.40) m/uL Hgb (11.4-16.0) gm/dL Hct 51.6 H (34.0-46.0) % MCV 102.7 H (80.0-100.0) fL MCHC 29.8 L (31.0-37.0) g/dL RDW 16.7 H (11.5-15.5) % Sodium 149 H (137-145) mmol/L Chloride 108 H (98-107) mmol/L Carbon Dioxide 6 L* (22-30) mmol/L Creatinine (0.52-1.04) mg/dL Glucose 127 H (74-99) mg/dL POC Glucose (mg/dL) 242 H (75-99) mg/dL Magnesium (1.6-2.3) mg/dL AST 241 H (14-36) U/L ALT 322 H (9-52) U/L Alkaline Phosphatase 675 H (38-126) U/L Total Protein (6.3-8.2) g/dL Albumin 5.1 H (3.5-5.0) g/dL Urine Appearance (Clear) Urine Protein (Negative) Urine Glucose (UA) (Negative) Urine Ketones (Negative) Urine Blood (Negative) Urine Bilirubin (Negative) Amorphous Sediment (None) /hpf Urine Mucus (None) /hpf Urine Yeast (Budding) (None) /hpf 03/26/17 03/26/17 03/26/17 Range/Units 14:59 18:20 19:45 WBC (4.0-11.0) k/uL RBC (3.80-5.40) m/uL Hgb (11.4-16.0) gm/dL Hct (34.0-46.0) % MCV (80.0-100.0) fL MCHC (31.0-37.0) g/dL RDW (11.5-15.5) % Sodium (137-145) mmol/L Chloride (98-107) mmol/L Carbon Dioxide (22-30) mmol/L Creatinine (0.52-1.04) mg/dL Glucose (74-99) mg/dL POC Glucose (mg/dL) 100 H 331 H (75-99) mg/dL Magnesium (1.6-2.3) mg/dL AST (14-36) U/L ALT (9-52) U/L Alkaline Phosphatase (38-126) U/L Total Protein (6.3-8.2) g/dL Albumin (3.5-5.0) g/dL Urine Appearance Cloudy H (Clear) Urine Protein 2+ H (Negative) Urine Glucose (UA) 4+ H (Negative) Urine Ketones 4+ H (Negative) Urine Blood Small H (Negative) Urine Bilirubin 1+ H (Negative) Amorphous Sediment Occasional H (None) /hpf Urine Mucus Occasional H (None) /hpf Urine Yeast (Budding) Occasional H (None) /hpf 03/26/17 03/27/17 03/27/17 Range/Units 22:57 00:50 05:48 WBC (4.0-11.0) k/uL RBC 3.30 L (3.80-5.40) m/uL Hgb 10.2 L D (11.4-16.0) gm/dL Hct 32.5 L (34.0-46.0) % MCV (80.0-100.0) fL MCHC (31.0-37.0) g/dL RDW 15.8 H (11.5-15.5) % Sodium (137-145) mmol/L Chloride (98-107) mmol/L Carbon Dioxide 11 L (22-30) mmol/L Creatinine 0.50 L (0.52-1.04) mg/dL Glucose 111 H (74-99) mg/dL POC Glucose (mg/dL) 118 H (75-99) mg/dL Magnesium 1.5 L (1.6-2.3) mg/dL AST (14-36) U/L ALT (9-52) U/L Alkaline Phosphatase (38-126) U/L Total Protein (6.3-8.2) g/dL Albumin (3.5-5.0) g/dL Urine Appearance (Clear) Urine Protein (Negative) Urine Glucose (UA) (Negative) Urine Ketones (Negative) Urine Blood (Negative) Urine Bilirubin (Negative) Amorphous Sediment (None) /hpf Urine Mucus (None) /hpf Urine Yeast (Budding) (None) /hpf 03/27/17 03/27/17 03/27/17 Range/Units 05:48 05:48 06:06 WBC (4.0-11.0) k/uL RBC (3.80-5.40) m/uL Hgb (11.4-16.0) gm/dL Hct (34.0-46.0) % MCV (80.0-100.0) fL MCHC (31.0-37.0) g/dL RDW (11.5-15.5) % Sodium (137-145) mmol/L Chloride 109 H (98-107) mmol/L Carbon Dioxide 20 L (22-30) mmol/L Creatinine 0.51 L (0.52-1.04) mg/dL Glucose <20 L* (74-99) mg/dL POC Glucose (mg/dL) 26 L (75-99) mg/dL Magnesium 1.5 L (1.6-2.3) mg/dL AST 117 H (14-36) U/L ALT 184 H (9-52) U/L Alkaline Phosphatase 388 H (38-126) U/L Total Protein 4.8 L (6.3-8.2) g/dL Albumin 2.7 L (3.5-5.0) g/dL Urine Appearance (Clear) Urine Protein (Negative) Urine Glucose (UA) (Negative) Urine Ketones (Negative) Urine Blood (Negative) Urine Bilirubin (Negative) Amorphous Sediment (None) /hpf Urine Mucus (None) /hpf Urine Yeast (Budding) (None) /hpf 03/27/17 Range/Units 06:12 WBC (4.0-11.0) k/uL RBC (3.80-5.40) m/uL Hgb (11.4-16.0) gm/dL Hct (34.0-46.0) % MCV (80.0-100.0) fL MCHC (31.0-37.0) g/dL RDW (11.5-15.5) % Sodium (137-145) mmol/L Chloride (98-107) mmol/L Carbon Dioxide (22-30) mmol/L Creatinine (0.52-1.04) mg/dL Glucose (74-99) mg/dL POC Glucose (mg/dL) 31 L (75-99) mg/dL Magnesium (1.6-2.3) mg/dL AST (14-36) U/L ALT (9-52) U/L Alkaline Phosphatase (38-126) U/L Total Protein (6.3-8.2) g/dL Albumin (3.5-5.0) g/dL Urine Appearance (Clear) Urine Protein (Negative) Urine Glucose (UA) (Negative) Urine Ketones (Negative) Urine Blood (Negative) Urine Bilirubin (Negative) Amorphous Sediment (None) /hpf Urine Mucus (None) /hpf Urine Yeast (Budding) (None) /hpf CT scan - abdomen: report reviewed (Dr. Mckeon) Assessment and Plan (1) Elevated LFTs Narrative/Plan: Chronic elevation of transaminitis and alkaline phosphatase greater than 6 months with recent cholecystectomy one month ago presents with intractable nausea vomiting epigastric pain. EGD 1 month ago reported antral gastritis. Etiology of transaminitis is unclear at this time. Full serologic workup for chronic liver disease so far has been unremarkable. Infiltrative liver diseases cannot be entirely excluded EISENBERG/steatohepatitis also within the differential. Current Visit: No Status: Acute Code(s): R79.89 - OTHER SPECIFIED ABNORMAL FINDINGS OF BLOOD CHEMISTRY SNOMED Code(s): 894103928 (2) Constipation Current Visit: Yes Status: Acute Code(s): K59.00 - CONSTIPATION, UNSPECIFIED SNOMED Code(s): 89484703 (3) Insulin dependent diabetes mellitus Current Visit: Yes Status: Chronic Code(s): E11.9 - TYPE 2 DIABETES MELLITUS WITHOUT COMPLICATIONS; Z79.4 - REED OR WIND INSTRUMENT REPAIRER (CURRENT) USE OF INSULIN SNOMED Code(s): 67161500 (4) Hepatomegaly Current Visit: No Status: Chronic Code(s): R16.0 - HEPATOMEGALY, NOT ELSEWHERE CLASSIFIED SNOMED Code(s): 10936832 (5) S/P laparoscopic cholecystectomy Current Visit: Yes Status: Chronic Code(s): Z90.49 - ACQUIRED ABSENCE OF OTHER SPECIFIED PARTS OF DIGESTIVE TRACT SNOMED Code(s): 934556479 (6) Lesion of brain Narrative/Plan: Outpatient workup with neurology Current Visit: Yes Status: Acute Code(s): G93.9 - DISORDER OF BRAIN, UNSPECIFIED SNOMED Code(s): 667084425 Plan: 1. Will obtain additional chemistries such as PT/INR, GGT, alpha1 antitrypsin and repeat AFP marker. 2. MRI liver versus liver biopsy discussed we'll review previous abdominal imaging with radiologist and decide. 3. Stool softeners gentle laxatives. 4. Continue with supportive measures. GI prophylaxis. Diet as tolerated. Will follow closely with you. Thank you for this kind referral and the opportunity to participate in the care of your patient. This consultation was discussed with Dr. Mckeon. The impression and plan of care have been directed as dictated.
[2017-03-27 11:35] LABS: Glucose,Whole Blood 340 mg/dL (75-99)
[2017-03-27 11:40] LABS: Prothrombin Time 9.6 sec (9.0-12.0)
[2017-03-27] MEDS ORDERED: Potassium Replacement Protocol 1 EACH MISC MISCELLANE PRN (11:53)
[2017-03-27] MEDS ORDERED: Magnesium Replacement Protocol 1 EACH MISC MISCELLANE PRN (11:54)
[2017-03-27] MEDS: SENNOSIDES-DOCUSATE SODIUM 1 EACH TAB PO SCH ×2 (12:00→20:10)
--- NOTE | 2017-03-27 14:36 | P.GSCN ---
<Nadja Wilsonne M - Last Filed: 03/27/17 14:16> History of Present Illness Consult date: 03/27/17 History of present illness: 21-year-old female seen and examined at the request of the attending for a surgical eval who presented with initial presentation to the emergency room with intractable nausea vomiting and mid epigastric discomfort. Patient stated that she had developed constipation has not had a bowel movement in several days. Decrease appetite with a nausea sensation Patient is known to surgical service just recently underwent on February 24 a lap cholecystectomy for chronic cholecystitis by dr madison Patient stated since being discharged on February 24 had been doing relatively well up until the current event. Patient does have a history of diabetes1 who has been treated in the past for DKA episodes the most recent one 02/24/2017 Patients being followed by gastroenterology service. Patients being scheduled tomorrow for a liver biopsy per recommendations GI service to be done by interventional radiology computed tomography scan of the abdomen pelvis showed hepatomegaly with no significant abnormality noted in the pancreas or spleen there was fecal stasis with stool impaction noted Review of Systems Essentially unremarkable except as mentioned in the present illness Past Medical History Past Medical History: Asthma, Diabetes Mellitus, GERD/Reflux, Syncope Additional Past Medical History / Comment(s): back pain- BULGING DISC, ovarian cyst, HX OF DKA,DM TYPE 1(FOR APPROX PAST 9 YEARS) History of Any Multi-Drug Resistant Organisms: MRSA Year Discovered:: 03/2014 MDRO Source:: GROIN AREA Past Surgical History: Cholecystectomy Past Anesthesia/Blood Transfusion Reactions: No Reported Reaction Smoking Status: Former smoker - Past Family History Mother History Unknown: Yes Family Medical History: No Reported History Additional Family Medical History / Comment(s): Mother is healthy Father Family Medical History: Diabetes Mellitus Medications and Allergies Home Medications Medication Instructions Recorded Confirmed Type Insulin Aspart [NovoLOG See Protocol SQ ACHS 12/03/16 03/26/17 History (formulary)] Insulin Glargine [Lantus] 12 units SQ HS 02/21/17 03/26/17 History Allergies Allergy/AdvReac Type Severity Reaction Status Date / Time red dye AdvReac Intermediate Nausea & Verified 03/26/17 14:00 Vomiting Sulfa (Sulfonamide AdvReac Nausea & Verified 03/26/17 14:00 Antibiotics) Vomiting sulfamethoxazole AdvReac Nausea & Verified 03/26/17 14:00 [From Bactrim] Vomiting trimethoprim [From Bactrim] AdvReac Nausea & Verified 03/26/17 14:00 Vomiting Surgical - Exam Vital Signs Temp Pulse Resp BP Pulse Ox 97.9 F 118 H 20 117/83 100 03/26/17 13:32 03/26/17 13:32 03/26/17 13:32 03/26/17 13:32 03/26/17 13:32 GENERAL APPEARANCE: patient is alert, oriented 3, in no acute distress. Sitting up in bed taking a lunch diet reports of nausea vomiting VITAL SIGNS: Reviewed HEENT: Head is normocephalic and atraumatic. Pupils are equal and reactive. The nares are patent. Oropharynx is clear without lesions. NECK: Supple without lymphadenopathy. Traches midline. HEART: S1, S2. Regular rate and rhythm. Denying chest pain LUNGS: No crackles or wheezes are heard. Adequate air movement ABDOMEN: Soft, nontender, nondistended with good bowel sounds. No peritoneal signs. No palpable organomegaly or masses. Reports no nausea vomiting states had a large bowel movement last night EXTREMITIES: Normal skin color and turgor. No cyanosis, rash, ulceration, clubbing or edema. Radial pedal pulses are 2/4 bilaterally. NEUROLOGICAL: No focal deficits. Strength and sensation are grossly intact. Results - Labs 03/27/17 05:48 03/27/17 05:48 Abnormal Lab Results - Last 24 Hours (Table) 03/26/17 03/26/17 03/26/17 Range/Units 14:05 14:05 14:59 WBC 3.9 L (4.0-11.0) k/uL RBC (3.80-5.40) m/uL Hgb (11.4-16.0) gm/dL Hct 51.6 H (34.0-46.0) % MCV 102.7 H (80.0-100.0) fL MCHC 29.8 L (31.0-37.0) g/dL RDW 16.7 H (11.5-15.5) % Sodium 149 H (137-145) mmol/L Chloride 108 H (98-107) mmol/L Carbon Dioxide 6 L* (22-30) mmol/L Creatinine (0.52-1.04) mg/dL Glucose 127 H (74-99) mg/dL POC Glucose (mg/dL) (75-99) mg/dL Magnesium (1.6-2.3) mg/dL GGT (12-43) U/L AST 241 H (14-36) U/L ALT 322 H (9-52) U/L Alkaline Phosphatase 675 H (38-126) U/L Total Protein (6.3-8.2) g/dL Albumin 5.1 H (3.5-5.0) g/dL Urine Appearance Cloudy H (Clear) Urine Protein 2+ H (Negative) Urine Glucose (UA) 4+ H (Negative) Urine Ketones 4+ H (Negative) Urine Blood Small H (Negative) Urine Bilirubin 1+ H (Negative) Amorphous Sediment Occasional H (None) /hpf Urine Mucus Occasional H (None) /hpf Urine Yeast (Budding) Occasional H (None) /hpf 03/26/17 03/26/17 03/26/17 Range/Units 18:20 19:45 22:57 WBC (4.0-11.0) k/uL RBC (3.80-5.40) m/uL Hgb (11.4-16.0) gm/dL Hct (34.0-46.0) % MCV (80.0-100.0) fL MCHC (31.0-37.0) g/dL RDW (11.5-15.5) % Sodium (137-145) mmol/L Chloride (98-107) mmol/L Carbon Dioxide 11 L (22-30) mmol/L Creatinine 0.50 L (0.52-1.04) mg/dL Glucose 111 H (74-99) mg/dL POC Glucose (mg/dL) 100 H 331 H (75-99) mg/dL Magnesium 1.5 L (1.6-2.3) mg/dL GGT (12-43) U/L AST (14-36) U/L ALT (9-52) U/L Alkaline Phosphatase (38-126) U/L Total Protein (6.3-8.2) g/dL Albumin (3.5-5.0) g/dL Urine Appearance (Clear) Urine Protein (Negative) Urine Glucose (UA) (Negative) Urine Ketones (Negative) Urine Blood (Negative) Urine Bilirubin (Negative) Amorphous Sediment (None) /hpf Urine Mucus (None) /hpf Urine Yeast (Budding) (None) /hpf 03/27/17 03/27/17 03/27/17 Range/Units 00:50 05:48 05:48 WBC (4.0-11.0) k/uL RBC 3.30 L (3.80-5.40) m/uL Hgb 10.2 L D (11.4-16.0) gm/dL Hct 32.5 L (34.0-46.0) % MCV (80.0-100.0) fL MCHC (31.0-37.0) g/dL RDW 15.8 H (11.5-15.5) % Sodium (137-145) mmol/L Chloride 109 H (98-107) mmol/L Carbon Dioxide 20 L (22-30) mmol/L Creatinine 0.51 L (0.52-1.04) mg/dL Glucose <20 L* (74-99) mg/dL POC Glucose (mg/dL) 118 H (75-99) mg/dL Magnesium (1.6-2.3) mg/dL GGT (12-43) U/L AST 117 H (14-36) U/L ALT 184 H (9-52) U/L Alkaline Phosphatase 388 H (38-126) U/L Total Protein 4.8 L (6.3-8.2) g/dL Albumin 2.7 L (3.5-5.0) g/dL Urine Appearance (Clear) Urine Protein (Negative) Urine Glucose (UA) (Negative) Urine Ketones (Negative) Urine Blood (Negative) Urine Bilirubin (Negative) Amorphous Sediment (None) /hpf Urine Mucus (None) /hpf Urine Yeast (Budding) (None) /hpf 03/27/17 03/27/17 03/27/17 Range/Units 05:48 06:06 06:12 WBC (4.0-11.0) k/uL RBC (3.80-5.40) m/uL Hgb (11.4-16.0) gm/dL Hct (34.0-46.0) % MCV (80.0-100.0) fL MCHC (31.0-37.0) g/dL RDW (11.5-15.5) % Sodium (137-145) mmol/L Chloride (98-107) mmol/L Carbon Dioxide (22-30) mmol/L Creatinine (0.52-1.04) mg/dL Glucose (74-99) mg/dL POC Glucose (mg/dL) 26 L 31 L (75-99) mg/dL Magnesium 1.5 L (1.6-2.3) mg/dL GGT (12-43) U/L AST (14-36) U/L ALT (9-52) U/L Alkaline Phosphatase (38-126) U/L Total Protein (6.3-8.2) g/dL Albumin (3.5-5.0) g/dL Urine Appearance (Clear) Urine Protein (Negative) Urine Glucose (UA) (Negative) Urine Ketones (Negative) Urine Blood (Negative) Urine Bilirubin (Negative) Amorphous Sediment (None) /hpf Urine Mucus (None) /hpf Urine Yeast (Budding) (None) /hpf 03/27/17 03/27/17 Range/Units 10:52 11:24 WBC (4.0-11.0) k/uL RBC (3.80-5.40) m/uL Hgb (11.4-16.0) gm/dL Hct (34.0-46.0) % MCV (80.0-100.0) fL MCHC (31.0-37.0) g/dL RDW (11.5-15.5) % Sodium (137-145) mmol/L Chloride (98-107) mmol/L Carbon Dioxide (22-30) mmol/L Creatinine (0.52-1.04) mg/dL Glucose (74-99) mg/dL POC Glucose (mg/dL) 340 H (75-99) mg/dL Magnesium (1.6-2.3) mg/dL GGT 1193 H (12-43) U/L AST (14-36) U/L ALT (9-52) U/L Alkaline Phosphatase (38-126) U/L Total Protein (6.3-8.2) g/dL Albumin (3.5-5.0) g/dL Urine Appearance (Clear) Urine Protein (Negative) Urine Glucose (UA) (Negative) Urine Ketones (Negative) Urine Blood (Negative) Urine Bilirubin (Negative) Amorphous Sediment (None) /hpf Urine Mucus (None) /hpf Urine Yeast (Budding) (None) /hpf Diabetes panel 03/26/17 03/26/17 03/27/17 Range/Units 14:05 22:57 05:48 Sodium 149 H 139 138 (137-145) mmol/L Potassium 3.8 3.7 3.5 (3.5-5.1) mmol/L Chloride 108 H 106 109 H (98-107) mmol/L Carbon Dioxide 6 L* 11 L 20 L (22-30) mmol/L BUN 14 12 12 (7-17) mg/dL Creatinine 0.64 0.50 L 0.51 L (0.52-1.04) mg/dL Glucose 127 H 111 H <20 L* (74-99) mg/dL Calcium 10.0 8.4 8.6 (8.4-10.2) mg/dL AST 241 H 117 H (14-36) U/L ALT 322 H 184 H (9-52) U/L Alkaline Phosphatase 675 H 388 H (38-126) U/L Total Protein 8.2 4.8 L (6.3-8.2) g/dL Albumin 5.1 H 2.7 L (3.5-5.0) g/dL Calcium panel 03/26/17 03/26/17 03/27/17 Range/Units 14:05 22:57 05:48 Calcium 10.0 8.4 8.6 (8.4-10.2) mg/dL Phosphorus 3.3 (2.5-4.5) mg/dL Albumin 5.1 H 2.7 L (3.5-5.0) g/dL Pituitary panel 03/26/17 03/26/17 03/27/17 Range/Units 14:05 22:57 05:48 Sodium 149 H 139 138 (137-145) mmol/L Potassium 3.8 3.7 3.5 (3.5-5.1) mmol/L Chloride 108 H 106 109 H (98-107) mmol/L Carbon Dioxide 6 L* 11 L 20 L (22-30) mmol/L BUN 14 12 12 (7-17) mg/dL Creatinine 0.64 0.50 L 0.51 L (0.52-1.04) mg/dL Glucose 127 H 111 H <20 L* (74-99) mg/dL Calcium 10.0 8.4 8.6 (8.4-10.2) mg/dL Adrenal panel 03/26/17 03/26/17 03/27/17 Range/Units 14:05 22:57 05:48 Sodium 149 H 139 138 (137-145) mmol/L Potassium 3.8 3.7 3.5 (3.5-5.1) mmol/L Chloride 108 H 106 109 H (98-107) mmol/L Carbon Dioxide 6 L* 11 L 20 L (22-30) mmol/L BUN 14 12 12 (7-17) mg/dL Creatinine 0.64 0.50 L 0.51 L (0.52-1.04) mg/dL Glucose 127 H 111 H <20 L* (74-99) mg/dL Calcium 10.0 8.4 8.6 (8.4-10.2) mg/dL Total Bilirubin 0.5 0.2 (0.2-1.3) mg/dL AST 241 H 117 H (14-36) U/L ALT 322 H 184 H (9-52) U/L Alkaline Phosphatase 675 H 388 H (38-126) U/L Total Protein 8.2 4.8 L (6.3-8.2) g/dL Albumin 5.1 H 2.7 L (3.5-5.0) g/dL Assessment and Plan Assessment: Impression Present on admission intractable nausea vomiting constipation Status post laparoscopic cholecystectomy for chronic cholecystitis done 2016 Type 1 diabetes Constipation nonspecified Chronic elevation of transaminitis and alkaline phosphatase A recent EGD 02/24/2017 for esophageal reflex with antral gastritis Plan Liver biopsy to be scheduled today by interventional radiology per recommendations of GI service agree with plan No evidence of an acute surgical abdomen Resume home meds as appropriate Will follow surgical course address surgical issues as they arise Repeat labs in the morning Bowel regime as ordered Surgical consultation dictated for Dr. madison The above impression and plan of care have been discussed and directed by signing physician. Belem Wilson nurse practitioner acting as scribe for signing physician. <Shree Madison - Last Filed: 03/27/17 17:21> Surgical - Exam Vital Signs Temp Pulse Resp BP Pulse Ox 97.9 F 118 H 20 117/83 100 03/26/17 13:32 03/26/17 13:32 03/26/17 13:32 03/26/17 13:32 03/26/17 13:32 Results - Labs 03/27/17 05:48 03/27/17 05:48 Abnormal Lab Results - Last 24 Hours (Table) 03/26/17 03/26/17 03/26/17 Range/Units 18:20 19:45 22:57 RBC (3.80-5.40) m/uL Hgb (11.4-16.0) gm/dL Hct (34.0-46.0) % RDW (11.5-15.5) % Chloride (98-107) mmol/L Carbon Dioxide 11 L (22-30) mmol/L Creatinine 0.50 L (0.52-1.04) mg/dL Glucose 111 H (74-99) mg/dL POC Glucose (mg/dL) 100 H 331 H (75-99) mg/dL Magnesium 1.5 L (1.6-2.3) mg/dL GGT (12-43) U/L AST (14-36) U/L ALT (9-52) U/L Alkaline Phosphatase (38-126) U/L Total Protein (6.3-8.2) g/dL Albumin (3.5-5.0) g/dL 03/27/17 03/27/17 03/27/17 Range/Units 00:50 05:48 05:48 RBC 3.30 L (3.80-5.40) m/uL Hgb 10.2 L D (11.4-16.0) gm/dL Hct 32.5 L (34.0-46.0) % RDW 15.8 H (11.5-15.5) % Chloride 109 H (98-107) mmol/L Carbon Dioxide 20 L (22-30) mmol/L Creatinine 0.51 L (0.52-1.04) mg/dL Glucose <20 L* (74-99) mg/dL POC Glucose (mg/dL) 118 H (75-99) mg/dL Magnesium (1.6-2.3) mg/dL GGT (12-43) U/L AST 117 H (14-36) U/L ALT 184 H (9-52) U/L Alkaline Phosphatase 388 H (38-126) U/L Total Protein 4.8 L (6.3-8.2) g/dL Albumin 2.7 L (3.5-5.0) g/dL 03/27/17 03/27/17 03/27/17 Range/Units 05:48 06:06 06:12 RBC (3.80-5.40) m/uL Hgb (11.4-16.0) gm/dL Hct (34.0-46.0) % RDW (11.5-15.5) % Chloride (98-107) mmol/L Carbon Dioxide (22-30) mmol/L Creatinine (0.52-1.04) mg/dL Glucose (74-99) mg/dL POC Glucose (mg/dL) 26 L 31 L (75-99) mg/dL Magnesium 1.5 L (1.6-2.3) mg/dL GGT (12-43) U/L AST (14-36) U/L ALT (9-52) U/L Alkaline Phosphatase (38-126) U/L Total Protein (6.3-8.2) g/dL Albumin (3.5-5.0) g/dL 03/27/17 03/27/17 03/27/17 Range/Units 10:52 11:24 16:26 RBC (3.80-5.40) m/uL Hgb (11.4-16.0) gm/dL Hct (34.0-46.0) % RDW (11.5-15.5) % Chloride (98-107) mmol/L Carbon Dioxide (22-30) mmol/L Creatinine (0.52-1.04) mg/dL Glucose (74-99) mg/dL POC Glucose (mg/dL) 340 H 424 H (75-99) mg/dL Magnesium (1.6-2.3) mg/dL GGT 1193 H (12-43) U/L AST (14-36) U/L ALT (9-52) U/L Alkaline Phosphatase (38-126) U/L Total Protein (6.3-8.2) g/dL Albumin (3.5-5.0) g/dL Diabetes panel 03/26/17 03/27/17 Range/Units 22:57 05:48 Sodium 139 138 (137-145) mmol/L Potassium 3.7 3.5 (3.5-5.1) mmol/L Chloride 106 109 H (98-107) mmol/L Carbon Dioxide 11 L 20 L (22-30) mmol/L BUN 12 12 (7-17) mg/dL Creatinine 0.50 L 0.51 L (0.52-1.04) mg/dL Glucose 111 H <20 L* (74-99) mg/dL Calcium 8.4 8.6 (8.4-10.2) mg/dL AST 117 H (14-36) U/L ALT 184 H (9-52) U/L Alkaline Phosphatase 388 H (38-126) U/L Total Protein 4.8 L (6.3-8.2) g/dL Albumin 2.7 L (3.5-5.0) g/dL Calcium panel 03/26/17 03/27/17 Range/Units 22:57 05:48 Calcium 8.4 8.6 (8.4-10.2) mg/dL Phosphorus 3.3 (2.5-4.5) mg/dL Albumin 2.7 L (3.5-5.0) g/dL Pituitary panel 03/26/17 03/27/17 Range/Units 22:57 05:48 Sodium 139 138 (137-145) mmol/L Potassium 3.7 3.5 (3.5-5.1) mmol/L Chloride 106 109 H (98-107) mmol/L Carbon Dioxide 11 L 20 L (22-30) mmol/L BUN 12 12 (7-17) mg/dL Creatinine 0.50 L 0.51 L (0.52-1.04) mg/dL Glucose 111 H <20 L* (74-99) mg/dL Calcium 8.4 8.6 (8.4-10.2) mg/dL Adrenal panel 03/26/17 03/27/17 Range/Units 22:57 05:48 Sodium 139 138 (137-145) mmol/L Potassium 3.7 3.5 (3.5-5.1) mmol/L Chloride 106 109 H (98-107) mmol/L Carbon Dioxide 11 L 20 L (22-30) mmol/L BUN 12 12 (7-17) mg/dL Creatinine 0.50 L 0.51 L (0.52-1.04) mg/dL Glucose 111 H <20 L* (74-99) mg/dL Calcium 8.4 8.6 (8.4-10.2) mg/dL Total Bilirubin 0.2 (0.2-1.3) mg/dL AST 117 H (14-36) U/L ALT 184 H (9-52) U/L Alkaline Phosphatase 388 H (38-126) U/L Total Protein 4.8 L (6.3-8.2) g/dL Albumin 2.7 L (3.5-5.0) g/dL Assessment and Plan Plan: Abdomen soft. No significant tenderness. There is no surgical intervention planned.
[2017-03-27] MEDS ORDERED: HYDROmorphone 2 MG/ML 1 ML SYRINGE IVP PRN (14:40)
[2017-03-27] MEDS ORDERED: fentaNYL (PF) 50 MCG/ML 5 ML AMP IVP SCH (15:00)
--- NOTE | 2017-03-27 15:29 | CT ---
EXAMINATION TYPE: CT biopsy liver EXAMINATION TYPE: CT biopsy liver DATE OF EXAM: 03/27/2017 COMPARISON: NONE HISTORY: Hepatomegaly and elevated liver enzymes CT DLP: 942mGycm The procedure was explained to the patient. The risks, complications, benefits, and alternatives wer e discussed and any questions were answered. Informed consent was obtained. Patient was placed supi ne on the CT table and prepped and draped in the usual sterile fashion. All elements of maximal barrier and sterile technique utilized. Utilizing CT guidance, an 18 gauge core biopsy needle access into the right lobe of the liver was ac hieved and a single 18 gauge core sample was obtained. The patient was stable throughout the procedu re and remained stable upon discharge. IMPRESSION: 1. Successful 18 gauge core biopsy of the liver.
[2017-03-27] MEDS: MAGNESIUM SULFATE-D5W PMX 1 GM in DEXTROSE/WATER 1 100ML.BAG IVPB SCH ×2 (15:34→16:41)
[2017-03-27 16:37] LABS: Glucose,Whole Blood 424 mg/dL (75-99)
[2017-03-27] MEDS: POTASSIUM CHLORIDE ER 20 MEQ TAB.ER PO SCH (16:42)
[2017-03-27 20:04] VITALS: RESP 16
[2017-03-27 20:08] LABS: Glucose,Whole Blood 208 mg/dL (75-99)
[2017-03-27] MEDS ORDERED: INSULIN DETEMIR 100 UNIT/ML 10 ML VIAL SQ SCH (21:00)
--- NOTE | 2017-03-27 22:25 | PN ---
PROGRESS NOTE SUBJECTIVE: A 21-year-old white female, metabolic acidosis, severe constipation, diabetes mellitus, has severe hypoglycemia today. Her insulin has been cut in half on her Accu-Chek protocol. Hypoglycemia protocol was followed this morning and diet will be increased. CARDIOVASCULAR: S1, S2. LUNGS: Transmitted upper airway sounds. HEMATOLOGY: Negative Homans'. PSYCH: Fair mood and affect. ASSESSMENT: 1. Diabetic ketoacidosis. 2. Metabolic acidosis. 3. Chronic constipation. Follow up in the next 24-48 hours for possible discharge. MMODL / IJN: [id number] /
[2017-03-28 02:09] LABS: Hemoglobin A1C 9.8 % (4.0-6.0)
[2017-03-28 05:56] LABS: Glucose,Whole Blood 109 mg/dL (75-99)
[2017-03-28] MEDS: INSULIN ASPART 100 UNIT/ML 1 ML 10 ML VIAL SQ SCH ×2 (06:28→12:14)
[2017-03-28 06:37] LABS: Anisocytosis Slight; Basophils % (A) 1 %; Eosinophils # (A) 0.2 k/uL (0-0.7); Eosinophils % (A) 3 %; HCT 34.9 % (34.0-46.0); HGB 11.3 gm/dL (11.4-16.0); Hypochromasia Slight; Lymphocytes % (A) 61 %; MCH 30.9 pg (25.0-35.0); MCHC 32.5 g/dL (31.0-37.0); MCV 95.1 fL (80.0-100.0); Mean Platelet Volume 7.5; Monocytes # (A) 0.2 k/uL (0-1.0); Monocytes % (A) 5 %; Neutrophils # (A) 1.4 k/uL (1.3-7.7); Neutrophils % (A) 28 %; Platelet Count 294 k/uL (150-450); Poikilocytosis Slight; RBC 3.68 m/uL (3.80-5.40); RDW 16.5 % (11.5-15.5); WBC 4.9 k/uL (4.0-11.0)
[2017-03-28 06:52] LABS: ALT 173 U/L (9-52); AST 182 U/L (14-36); Albumin 3.1 g/dL (3.5-5.0); Alkaline Phosphatase 429 U/L (38-126); Anion Gap 13 mmol/L; Blood Urea Nitrogen 14 mg/dL (7-17); Calcium 8.6 mg/dL (8.4-10.2); Carbon Dioxide 19 mmol/L (22-30); Chloride 105 mmol/L (98-107); Glucose 102 mg/dL (74-99); Magnesium 1.8 mg/dL (1.6-2.3); Potassium 3.9 mmol/L (3.5-5.1); Sodium 137 mmol/L (137-145); Total Bilirubin 0.2 mg/dL (0.2-1.3); Total Protein 5.4 g/dL (6.3-8.2)
[2017-03-28 09:20] VITALS: PULSE 95; TEMP 98.7
[2017-03-28] MEDS: SENNOSIDES-DOCUSATE SODIUM 1 EACH TAB PO SCH (09:20)
[2017-03-28] MEDS: FAMOTIDINE 20 MG TAB PO SCH (09:20)
--- NOTE | 2017-03-28 11:06 | P.PN ---
Subjective Progress Note Date: 03/28/17 Principal diagnosis: elevated liver enzymes Feels well. Tolerating diet. Status post liver biopsy. LFTs stable. Objective - Vital Signs Vital signs: Vital Signs Temp 98.7 F 03/28/17 09:19 Pulse 95 03/28/17 09:19 Resp 16 03/28/17 09:19 BP 109/65 03/28/17 09:19 Pulse Ox 97 03/28/17 09:19 Intake & Output 03/27/17 03/28/17 03/28/17 18:59 06:59 18:59 Intake Total 200 Output Total 1 Balance 200 -1 Weight 61.7 kg 61.7 kg Intake: Intake, IV Titration 200 Amount Magnesium Sulfate-D5w Pmx 200 1 gm In Dextrose/Water 1 100ml.bag @ 100 mls/hr IVPB Q1H JAMAL Rx#: [id number] Output: Urine 1 Other: # Voids 2 2 - Exam General appearance: The patient is alert, oriented, in no acute distress. HET: Head is normocephalic and atraumatic. Pupils are equal and reactive. Oropharynx is clear without lesions. Neck: Supple without lymphadenopathy. Trachea midline. Heart: S1 S2. Regular rate and rhythm. Lungs: No crackles or wheezes are heard. Abdomen: Soft, nontender, nondistended with bowel sounds. No peritoneal signs. Palpable hepatomegaly 2 fingers below right subcostal margin. Extremities: Normal skin color and turgor. No cyanosis, rash, ulceration, clubbing, or edema. Radial and pedal pulses are 2/4 bilaterally. Neurological: No focal deficits. Strength and sensation are grossly intact. - Labs CBC & Chem 7: 03/28/17 06:09 03/28/17 06:09 Labs: Abnormal Lab Results - Last 24 Hours (Table) 03/27/17 03/27/17 03/27/17 Range/Units 05:48 10:52 11:24 RBC (3.80-5.40) m/uL Hgb (11.4-16.0) gm/dL RDW (11.5-15.5) % Carbon Dioxide (22-30) mmol/L Creatinine (0.52-1.04) mg/dL Glucose (74-99) mg/dL POC Glucose (mg/dL) 340 H (75-99) mg/dL Hemoglobin A1c 9.8 H (4.0-6.0) % GGT 1193 H (12-43) U/L AST (14-36) U/L ALT (9-52) U/L Alkaline Phosphatase (38-126) U/L Total Protein (6.3-8.2) g/dL Albumin (3.5-5.0) g/dL 03/27/17 03/27/17 03/28/17 Range/Units 16:26 20:06 05:49 RBC (3.80-5.40) m/uL Hgb (11.4-16.0) gm/dL RDW (11.5-15.5) % Carbon Dioxide (22-30) mmol/L Creatinine (0.52-1.04) mg/dL Glucose (74-99) mg/dL POC Glucose (mg/dL) 424 H 208 H 109 H (75-99) mg/dL Hemoglobin A1c (4.0-6.0) % GGT (12-43) U/L AST (14-36) U/L ALT (9-52) U/L Alkaline Phosphatase (38-126) U/L Total Protein (6.3-8.2) g/dL Albumin (3.5-5.0) g/dL 03/28/17 03/28/17 Range/Units 06:09 06:09 RBC 3.68 L (3.80-5.40) m/uL Hgb 11.3 L (11.4-16.0) gm/dL RDW 16.5 H (11.5-15.5) % Carbon Dioxide 19 L (22-30) mmol/L Creatinine 0.41 L (0.52-1.04) mg/dL Glucose 102 H (74-99) mg/dL POC Glucose (mg/dL) (75-99) mg/dL Hemoglobin A1c (4.0-6.0) % GGT (12-43) U/L AST 182 H (14-36) U/L ALT 173 H (9-52) U/L Alkaline Phosphatase 429 H (38-126) U/L Total Protein 5.4 L (6.3-8.2) g/dL Albumin 3.1 L (3.5-5.0) g/dL Assessment and Plan (1) Elevated LFTs Narrative/Plan: Status post liver biopsy. Chronic elevation of transaminitis and alkaline phosphatase greater than 6 months with recent cholecystectomy one month ago presents with intractable nausea vomiting epigastric pain. EGD 1 month ago reported antral gastritis. Etiology of transaminitis is unclear at this time. Full serologic workup for chronic liver disease so far has been unremarkable. Infiltrative liver diseases cannot be entirely excluded EISENBERG/steatohepatitis also within the differential. Current Visit: No Status: Acute Code(s): R79.89 - OTHER SPECIFIED ABNORMAL FINDINGS OF BLOOD CHEMISTRY SNOMED Code(s): 305689382 (2) Constipation Current Visit: Yes Status: Acute Code(s): K59.00 - CONSTIPATION, UNSPECIFIED SNOMED Code(s): 27566213 (3) Insulin dependent diabetes mellitus Current Visit: Yes Status: Chronic Code(s): E11.9 - TYPE 2 DIABETES MELLITUS WITHOUT COMPLICATIONS; Z79.4 - INTERMEDIATE (CURRENT) USE OF INSULIN SNOMED Code(s): 09249324 (4) Hepatomegaly Current Visit: No Status: Chronic Code(s): R16.0 - HEPATOMEGALY, NOT ELSEWHERE CLASSIFIED SNOMED Code(s): 84330286 (5) S/P laparoscopic cholecystectomy Current Visit: Yes Status: Chronic Code(s): Z90.49 - ACQUIRED ABSENCE OF OTHER SPECIFIED PARTS OF DIGESTIVE TRACT SNOMED Code(s): 870311167 (6) Lesion of brain Narrative/Plan: Outpatient workup with neurology Current Visit: Yes Status: Acute Code(s): G93.9 - DISORDER OF BRAIN, UNSPECIFIED SNOMED Code(s): 056547906 Plan: 1. Agreeable for discharge. 2. Return to GI office 7-10 days for reevaluation and discussion of liver biopsy results. Assessment and plan a care discussed with Dr. Mckeon
[2017-03-28 11:36] LABS: Glucose,Whole Blood 479 mg/dL (75-99)
[2017-03-28] MEDS ORDERED: ACETAMINOPHEN TAB 325 MG TAB PO STA (11:59)
[2017-03-28 12:14] VITALS: BP 104/63
[2017-03-28 14:26] LABS: Glucose,Whole Blood 274 mg/dL (75-99)
--- NOTE | 2017-05-05 00:43 | DS ---
DISCHARGE SUMMARY DATE OF ADMISSION: 03/26/17. DATE OF DISCHARGE: 03/28/17. MEDICATIONS: 1. NovoLog a.c. and q.h.s. 2. Lantus 12 units subcu q.h.s. This patient is a 21-year-old white female admitted with nausea, vomiting, diarrhea. She had DKA, nausea, vomiting with severe abdominal distention. She was placed on IV fluids while in the hospital and treated for severe dehydration. CT scan of the abdomen ss done which showed some severe constipation. ASSESSMENT: 1. Chronic constipation, possibly due to gastroparesis. 2. Diabetic ketoacidosis. 3. Metabolic acidosis. 4. Liver enzyme elevation of unclear etiology. 5. Hepatomegaly. She was seen by Surgery and Gastroenterology. She will follow up with the surgeon and Gastroenterology as outpatient for further treatment for patient's symptomatology as well as she had a liver biopsy. Her liver enzymes are stable on discharge. Unclear etiology as a cause of the liver enzyme elevation. Please see further orders. MMODL / IJN: [id number] /
== END 2017-03-28 16:54 | disposition home or self-care (01) | DRG 639 ==
LOC: EC 13:21 → 6SEL 15:56
PROVIDERS: ADMIT Family Medicine; ATTEND Family Medicine
PROC: 0FB13ZX Excision of Right Lobe Liver, Percutaneous Approach, Diagnostic (ICD-10-PCS; principal; 2017-03-27)
DX: E10.10 Type 1 diabetes mellitus with ketoacidosis without coma (principal); E10.649 Type 1 diabetes mellitus with hypoglycemia without coma; R16.0 Hepatomegaly, not elsewhere classified; R79.89 Other specified abnormal findings of blood chemistry; K56.41 Fecal impaction; K29.60 Other gastritis without bleeding; J45.909 Unspecified asthma, uncomplicated; K21.9 Gastro-esophageal reflux disease without esophagitis; M21.372 Foot drop, left foot; G43.909 Migraine, unspecified, not intractable, without status migrainosus; G93.9 Disorder of brain, unspecified; M54.9 Dorsalgia, unspecified; N83.209 Unspecified ovarian cyst, unspecified side; Z79.4 Long term (current) use of insulin; Z87.891 Personal history of nicotine dependence; Z86.14 Personal history of Methicillin resistant Staphylococcus aureus infection; Z90.49 Acquired absence of other specified parts of digestive tract; Z88.2 Allergy status to sulfonamides; Z91.02 Food additives allergy status; Z83.3 Family history of diabetes mellitus
CPT/HCPCS: 36415; 47000; 71046; 74177; 76705; 77012; 80048; 80053; 81001; 81025; 82009; 82103; 82105; 82977; 83036; 83690; 83735; 84100; 85025; 85610; 88307; 88313; 96361; 96374; 99285

== ENCOUNTER → 2017-04-11 | Outpatient (CLI) | payer OTHER ==
--- NOTE | 2017-04-11 15:45 | MR ---
MR brain without contrast HISTORY: Migraine without aura, G 43.009 Multiplanar multisequence imaging obtained through the brain No comparisons There is no restricted diffusion. There is no hemorrhage or hydrocephalus. Cerebellopontine angles, c orpus callosum, pituitary, cervical medullary junction are within normal limits. Brain signal is varsha rkable for some mild increased periventricular increased signal in the T2 and inversion recovery data sets more posteriorly. No evident mass. No mass effect or midline shift. 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 There are normal vascular flow voids. The orbits show symmetric appearance. Mucosal dise ase present in the right maxillary sinus IMPRESSION: Nonspecific white matter hyperintensity may represent transependymal flow of cerebrospina l fluid. Mild sinus disease.
== END | disposition home or self-care (01) ==
LOC: RADMRIMAIN 08:43
PROVIDERS: ATTEND Family Medicine
DX: G43.009 Migraine without aura, not intractable, without status migrainosus (principal)
CPT/HCPCS: 70551

== ENCOUNTER 2017-06-11 14:59 | Inpatient (IN) | payer OTHER ==
[2017-06-11 15:21] LABS: Glucose,Whole Blood 64 mg/dL (75-99)
[2017-06-11 15:49] LABS: Glucose,Whole Blood 56 mg/dL (75-99)
[2017-06-11] MEDS ORDERED: SODIUM CHLORIDE 0.9% 1,000 ML IV STA ×2 (15:53→16:47)
[2017-06-11] MEDS ORDERED: ONDANSETRON 4 MG/2 ML VIAL IVP STA (15:53)
[2017-06-11] MEDS ORDERED: KETOROLAC 30 MG/ML 1 ML VIAL IVP STA (15:58)
--- NOTE | 2017-06-11 16:02 | ED ---
General Adult HPI - General Chief complaint: Nausea/Vomiting/Diarrhea Stated complaint: Pain Time Seen by Provider: 06/11/17 15:52 Source: patient, RN notes reviewed Mode of arrival: wheelchair Limitations: no limitations - History of Present Illness Initial comments: 21 yo female presents to the ER with cc of nausea and vomiting and generalized pain. Patient states that she was throwing up over the weekend. Patient states she is chronically been loss of appetite since or gallbladders. She states that today she just developed this generalized pain and she became nauseous so she was concerned. States there is no one spot that hurts more than the other. She has a history of headaches states she did take Excedrin help her headache but did not give her much relief. She states that she did not eat or drink well today. She does take insulin for type I diabetics. Patient denies any recent fever, chills, shortness of breath, chest pain, back pain, abdominal pain, numbness or tingling, dysuria or hematuria, constipation or diarrhea, visual changes, or any other current symptoms. - Related Data Home Medications Medication Instructions Recorded Confirmed Insulin Aspart [NovoLOG See Protocol SQ ACHS 12/03/16 06/11/17 (formulary)] Insulin Glargine [Lantus] 15 units SQ HS 02/21/17 06/11/17 Aspirin/Acetaminophen/Caffeine 2 tab PO DAILY PRN 06/11/17 06/11/17 [Excedrin Migraine Caplet] Allergies Allergy/AdvReac Type Severity Reaction Status Date / Time red dye AdvReac Intermediate Nausea & Verified 06/11/17 16:06 Vomiting Sulfa (Sulfonamide AdvReac Nausea & Verified 06/11/17 16:06 Antibiotics) Vomiting sulfamethoxazole AdvReac Nausea & Verified 06/11/17 16:06 [From Bactrim] Vomiting trimethoprim [From Bactrim] AdvReac Nausea & Verified 06/11/17 16:06 Vomiting Review of Systems ROS Statement: Those systems with pertinent positive or pertinent negative responses have been documented in the HPI. ROS Other: All systems not noted in ROS Statement are negative. Past Medical History Past Medical History: Asthma, Diabetes Mellitus, GERD/Reflux, Syncope Additional Past Medical History / Comment(s): back pain- BULGING DISC, ovarian cyst, HX OF DKA,DM TYPE 1(FOR APPROX PAST 9 YEARS) History of Any Multi-Drug Resistant Organisms: MRSA Date of last positivie culture/infection: 03/2014 MDRO Source:: GROIN AREA Past Surgical History: Cholecystectomy Past Anesthesia/Blood Transfusion Reactions: No Reported Reaction Past Psychological History: No Psychological Hx Reported Smoking Status: Former smoker Past Alcohol Use History: None Reported Past Drug Use History: Marijuana - Past Family History Mother History Unknown: Yes Family Medical History: No Reported History Additional Family Medical History / Comment(s): Mother is healthy Father Family Medical History: Diabetes Mellitus General Exam - General Exam Comments Initial Comments: General: The patient is awake and alert, in no distress, and does not appear acutely ill. Eye: Pupils are equal, round and reactive to light, extra-ocular movements are intact; there is normal conjunctiva bilaterally. No signs of icterus. Ears, nose, mouth and throat: There are moist mucous membranes. Neck: The neck is supple, there is no tenderness. Cardiovascular: There is a regular rate and rhythm. No murmur, rub or gallop is appreciated. Respiratory: Lungs are clear to auscultation, respirations are non-labored, breath sounds are equal. No wheezes, stridor, rales, or rhonchi. Gastrointestinal: Soft, non-distended, non-tender abdomen without masses or organomegaly noted. There is no rebound or guarding present. No CVA tenderness. Bowel sounds are unremarkable. Back: There is no tenderness to palpation in the midline. There is no obvious deformity. No rashes noted. Musculoskeletal: Normal ROM, no tenderness, There is no pedal edema. There is no calf tenderness or swelling. Sensation intact. Pulses equal bilaterally 2+. Neurological: CN II-XII intact, There are no obvious motor or sensory deficits. Coordination appears grossly intact. Speech is normal. Skin: Skin is warm and dry and no rashes or lesions are noted. Psychiatric: Cooperative, appropriate mood & affect, normal judgment. Limitations: no limitations Course Vital Signs 06/11/17 06/11/17 15:14 18:49 Temperature 98.8 F 98.5 F Pulse Rate 115 H 110 H Respiratory 18 16 Rate Blood Pressure 107/65 115/65 O2 Sat by Pulse 98 99 Oximetry Medical Decision Making - Medical Decision Making 21-year-old female presents for nausea vomiting. Patient is found to be hypoglycemic. Patient is tolerating food at bedside. At this time patient's lab work is been reviewed. He does appear to be an elevated anion gap as well as the patient does appear to be in metabolic acidosis. Patient also does have elevated liver enzymes it seems to be trending up from previous lab work. This time we'll admit patient for continued IV hydration. Patient is tolerating food at this time. Patient states she only ate a small from yesterday and that is about all she tends to eat. Concern for possible issues due to poor intake. We will admit the patient at this time. There is question for UTI we did put give the patient one dose of Rocephin here. Dr. Seay agrees to admission. - Lab Data Result diagrams: 06/11/17 15:48 06/11/17 15:48 Lab Results 06/11/17 06/11/17 06/11/17 Range/Units 15:19 15:47 15:48 WBC 6.3 (4.0-11.0) k/uL RBC 4.19 (3.80-5.40) m/uL Hgb 13.6 (11.4-16.0) gm/dL Hct 39.1 (34.0-46.0) % MCV 93.4 (80.0-100.0) fL MCH 32.5 (25.0-35.0) pg MCHC 34.8 (31.0-37.0) g/dL RDW 16.3 H (11.5-15.5) % Plt Count 495 H (150-450) k/uL Neutrophils % 51 % Lymphocytes % 41 % Monocytes % 4 % Eosinophils % 1 % Basophils % 1 % Neutrophils # 3.2 (1.3-7.7) k/uL Lymphocytes # 2.6 (1.0-4.8) k/uL Monocytes # 0.3 (0-1.0) k/uL Eosinophils # 0.1 (0-0.7) k/uL Basophils # 0.1 (0-0.2) k/uL Hyperchromasia Moderate Poikilocytosis Marked Anisocytosis Slight Sodium (137-145) mmol/L Potassium (3.5-5.1) mmol/L Chloride (98-107) mmol/L Carbon Dioxide (22-30) mmol/L Anion Gap mmol/L BUN (7-17) mg/dL Creatinine (0.52-1.04) mg/dL Est GFR (CKD-EPI)AfAm (>60 ml/min/1.73 sqM) Est GFR (CKD-EPI)NonAf (>60 ml/min/1.73 sqM) Glucose (74-99) mg/dL POC Glucose (mg/dL) 64 L 56 L (75-99) mg/dL POC Glu Scale Tester Jodi Manjarrez Danielle Calcium (8.4-10.2) mg/dL Total Bilirubin (0.2-1.3) mg/dL AST (14-36) U/L ALT (9-52) U/L Alkaline Phosphatase (38-126) U/L Total Protein (6.3-8.2) g/dL Albumin (3.5-5.0) g/dL Urine Color Urine Appearance (Clear) Urine pH (5.0-8.0) Ur Specific [place] (1.001-1.035) Urine Protein (Negative) Urine Glucose (UA) (Negative) Urine Ketones (Negative) Urine Blood (Negative) Urine Nitrite (Negative) Urine Bilirubin (Negative) Urine Urobilinogen (<2.0) mg/dL Ur Leukocyte Esterase (Negative) Urine RBC (0-5) /hpf Urine WBC (0-5) /hpf Ur Squamous Epith Cells (0-4) /hpf Urine Bacteria (None) /hpf Hyaline Casts (0-2) /lpf Granular Casts (0) /lpf Urine Mucus (None) /hpf Urine Yeast (Budding) (None) /hpf Urine HCG, Qual (Not Detectd) 06/11/17 06/11/17 06/11/17 Range/Units 15:48 16:23 16:23 WBC (4.0-11.0) k/uL RBC (3.80-5.40) m/uL Hgb (11.4-16.0) gm/dL Hct (34.0-46.0) % MCV (80.0-100.0) fL MCH (25.0-35.0) pg MCHC (31.0-37.0) g/dL RDW (11.5-15.5) % Plt Count (150-450) k/uL Neutrophils % % Lymphocytes % % Monocytes % % Eosinophils % % Basophils % % Neutrophils # (1.3-7.7) k/uL Lymphocytes # (1.0-4.8) k/uL Monocytes # (0-1.0) k/uL Eosinophils # (0-0.7) k/uL Basophils # (0-0.2) k/uL Hyperchromasia Poikilocytosis Anisocytosis Sodium 143 (137-145) mmol/L Potassium 3.8 (3.5-5.1) mmol/L Chloride 106 (98-107) mmol/L Carbon Dioxide 14 L (22-30) mmol/L Anion Gap 23 mmol/L BUN 18 H (7-17) mg/dL Creatinine 0.50 L (0.52-1.04) mg/dL Est GFR (CKD-EPI)AfAm >90 (>60 ml/min/1.73 sqM) Est GFR (CKD-EPI)NonAf >90 (>60 ml/min/1.73 sqM) Glucose 50 L* (74-99) mg/dL POC Glucose (mg/dL) (75-99) mg/dL POC Glu Scale Tester ID Calcium 10.1 (8.4-10.2) mg/dL Total Bilirubin 0.6 (0.2-1.3) mg/dL AST 222 H (14-36) U/L ALT 198 H (9-52) U/L Alkaline Phosphatase 607 H (38-126) U/L Total Protein 7.6 (6.3-8.2) g/dL Albumin 4.6 (3.5-5.0) g/dL Urine Color Yellow Urine Appearance Cloudy H (Clear) Urine pH 5.5 (5.0-8.0) Ur Specific [place] 1.019 (1.001-1.035) Urine Protein 2+ H (Negative) Urine Glucose (UA) 4+ H (Negative) Urine Ketones 4+ H (Negative) Urine Blood Trace H (Negative) Urine Nitrite Negative (Negative) Urine Bilirubin 1+ H (Negative) Urine Urobilinogen 4.0 (<2.0) mg/dL Ur Leukocyte Esterase Large H (Negative) Urine RBC 7 H (0-5) /hpf Urine WBC 38 H (0-5) /hpf Ur Squamous Epith Cells 6 H (0-4) /hpf Urine Bacteria Few H (None) /hpf Hyaline Casts 2 (0-2) /lpf Granular Casts 29 (0) /lpf Urine Mucus Rare H (None) /hpf Urine Yeast (Budding) Occasional H (None) /hpf Urine HCG, Qual Not Detected (Not Detectd) 06/11/17 06/11/17 06/11/17 Range/Units 16:43 17:28 18:46 WBC (4.0-11.0) k/uL RBC (3.80-5.40) m/uL Hgb (11.4-16.0) gm/dL Hct (34.0-46.0) % MCV (80.0-100.0) fL MCH (25.0-35.0) pg MCHC (31.0-37.0) g/dL RDW (11.5-15.5) % Plt Count (150-450) k/uL Neutrophils % % Lymphocytes % % Monocytes % % Eosinophils % % Basophils % % Neutrophils # (1.3-7.7) k/uL Lymphocytes # (1.0-4.8) k/uL Monocytes # (0-1.0) k/uL Eosinophils # (0-0.7) k/uL Basophils # (0-0.2) k/uL Hyperchromasia Poikilocytosis Anisocytosis Sodium (137-145) mmol/L Potassium (3.5-5.1) mmol/L Chloride (98-107) mmol/L Carbon Dioxide (22-30) mmol/L Anion Gap mmol/L BUN (7-17) mg/dL Creatinine (0.52-1.04) mg/dL Est GFR (CKD-EPI)AfAm (>60 ml/min/1.73 sqM) Est GFR (CKD-EPI)NonAf (>60 ml/min/1.73 sqM) Glucose (74-99) mg/dL POC Glucose (mg/dL) 70 L 76 115 H (75-99) mg/dL POC Glu Scale Tester Alphonse Houser, Lois Nelson Calcium (8.4-10.2) mg/dL Total Bilirubin (0.2-1.3) mg/dL AST (14-36) U/L ALT (9-52) U/L Alkaline Phosphatase (38-126) U/L Total Protein (6.3-8.2) g/dL Albumin (3.5-5.0) g/dL Urine Color Urine Appearance (Clear) Urine pH (5.0-8.0) Ur Specific [place] (1.001-1.035) Urine Protein (Negative) Urine Glucose (UA) (Negative) Urine Ketones (Negative) Urine Blood (Negative) Urine Nitrite (Negative) Urine Bilirubin (Negative) Urine Urobilinogen (<2.0) mg/dL Ur Leukocyte Esterase (Negative) Urine RBC (0-5) /hpf Urine WBC (0-5) /hpf Ur Squamous Epith Cells (0-4) /hpf Urine Bacteria (None) /hpf Hyaline Casts (0-2) /lpf Granular Casts (0) /lpf Urine Mucus (None) /hpf Urine Yeast (Budding) (None) /hpf Urine HCG, Qual (Not Detectd) Disposition Clinical Impression: Elevated LFTs, Transaminitis, Insulin dependent diabetes mellitus, Metabolic acidosis Disposition: ADMITTED IP TO THIS [facility] Condition: Stable Referrals: Ana Sebastian [facility] [REFERRING] - 1-2 days Decision Date: 06/11/17 Decision Time: 18:13
[2017-06-11 16:18] LABS: ALT 198 U/L (9-52); AST 222 U/L (14-36); Albumin 4.6 g/dL (3.5-5.0); Alkaline Phosphatase 607 U/L (38-126); Anion Gap 23 mmol/L; Anisocytosis Slight; Basophils # (A) 0.1 k/uL (0-0.2); Basophils % (A) 1 %; Blood Urea Nitrogen 18 mg/dL (7-17); Calcium 10.1 mg/dL (8.4-10.2); Carbon Dioxide 14 mmol/L (22-30); Chloride 106 mmol/L (98-107); Eosinophils # (A) 0.1 k/uL (0-0.7); Eosinophils % (A) 1 %; HCT 39.1 % (34.0-46.0); HGB 13.6 gm/dL (11.4-16.0); Hyperchromasia Moderate; Lymphocytes # (A) 2.6 k/uL (1.0-4.8); Lymphocytes % (A) 41 %; MCH 32.5 pg (25.0-35.0); MCHC 34.8 g/dL (31.0-37.0); MCV 93.4 fL (80.0-100.0); Mean Platelet Volume 6.6; Monocytes # (A) 0.3 k/uL (0-1.0); Monocytes % (A) 4 %; Neutrophils # (A) 3.2 k/uL (1.3-7.7); Neutrophils % (A) 51 %; Platelet Count 495 k/uL (150-450); Poikilocytosis Marked; Potassium 3.8 mmol/L (3.5-5.1); RBC 4.19 m/uL (3.80-5.40); RDW 16.3 % (11.5-15.5); Sodium 143 mmol/L (137-145); Total Bilirubin 0.6 mg/dL (0.2-1.3); Total Protein 7.6 g/dL (6.3-8.2); WBC 6.3 k/uL (4.0-11.0)
[2017-06-11 16:34] LABS: Glucose 50 mg/dL (74-99)
[2017-06-11 16:37] LABS: Appearance,Urine Cloudy (Clear); Bacteria,Urine Few /hpf; Bilirubin,Urine 1+ (Negative); Blood,Urine Trace (Negative); Budding Yeast,Urine Occasional /hpf; Color,Urine Yellow; Glucose,Urine (UA) 4+ (Negative); Granular Casts,Urine 29 /lpf (0); Hyaline Casts,Urine 2 /lpf (0-2); Leukocyte Esterase,Urine Large (Negative); Mucus,Urine Rare /hpf; Nitrite,Urine Negative (Negative); PH, Urine 5.5 (5.0-8.0); Protein,Urine 2+ (Negative); RBC,Urine 7 /hpf (0-5); Specific Gravity,Urine 1.019 (1.001-1.035); Squamous Epithelial Cell,Urine 6 /hpf (0-4); WBC,Urine 38 /hpf (0-5)
[2017-06-11 16:40] LABS: Ketones,Urine 4+ (Negative)
[2017-06-11 16:44] LABS: Glucose,Whole Blood 70 mg/dL (75-99)
[2017-06-11 17:30] LABS: Glucose,Whole Blood 76 mg/dL (75-99)
[2017-06-11] MEDS ORDERED: cefTRIAXone IN SWFI 1,000 MG/10 ML SYRINGE IVP STA (17:31)
[2017-06-11 18:48] LABS: Glucose,Whole Blood 115 mg/dL (75-99)
[2017-06-11] MEDS ORDERED: SODIUM CHLORIDE 0.9% 1,000 ML IV SCH ×3 (19:15→22:00)
[2017-06-11] MEDS ORDERED: ONDANSETRON 4 MG/2 ML VIAL IVP PRN (19:49)
[2017-06-11 20:16] LABS: Glucose,Whole Blood 133 mg/dL (75-99)
--- NOTE | 2017-06-11 20:31 | P.HPIM ---
History of Present Illness H&P Date: 06/11/17 Chief Complaint: abd pain of 1 day duration 21 -year-old female with past medical history of diabetes mellitus type 1. Patient had kind of confusing presentation along with her poor ability to provide a good history. However to some of the presentation #1 patient presented with new onset acute abdominal pain mainly epigastric and right upper quadrant that started this afternoon radiating to the back colicky in nature 6-8 out of 10 in severity patient gets some relief when she lays in position she also tried to take some Excedrin without much benefit along with that she denies any nausea or vomiting this time denies any diarrhea denies and any unsanitary food denies any burning with urination denies any fevers or chills. She denies any similar symptoms in the past. #2 patient reported generalized pains and aches in her body that's been going on for couple months got worse over the past few days she also reported that over the weekend she had some repeated nausea and vomiting of stomach content and yellowish in color denies any bilious vomiting or any coffee-ground vomiting or any bleeding. This has resolved since. #3 patient has diabetes type 1 brittle type very hard to control her home she uses long-acting insulin and short-acting insulin on sliding scale basis she continues to be compliant with her insulin however she does report elevated A1c at around 9.5 for the most recent one, she also reported that her by mouth intake has decreased significantly since that her most recent surgery back in February 2017 when she had lap yoandy done due to biliary sludge. In the emergency department she was found to be hypoglycemic with severe acidosis and positive anion gap with ketosis in the urine. It was thought initially to be due to starvation ketosis, however after further workup on the floor lactic acid returned elevated despite receiving 2 liter boluses of IV normal saline in the ED. Her blood sugar initially was 50 and started to increase, after reviewing the medication records patient did not seem to receive any IV dextrose, however she was given some juice in the ED to drink. Most recent blood sugar is 370. Based on all the findings above and her labs, decision was made to treat the patient for DKA. Lipase came back normal, liver enzymes are elevated indicative of a biliary duct pathology, abdominal ultrasound is pending. Currently patient is laying comfortable in bed reporting some abdominal pain persistent at 6 out of 10 in severity denies any nausea or vomiting. Review of Systems Constitutional: Patient denies fever, denies chills, denies night sweating, denies significant weight changes Eyes: Patient denies visual changes, denies eye pain ENT: Patient denies ear pain, denies rhinorrhea, denies sore throat Cardiovascular: Patient denies chest pain, denies exertional dyspnea, denies peripheral leg edema, denies orthopnea, denies paroxysmal nocturnal dyspnea Respiratory:Patient denies cough, denies wheezing, denies shortness of breath Gastrointestinal: Patient denies diarrhea, denies constipation, reports some nausea and vomiting over the weekend however resolved now , reports abdominal pain as per HPI Genitourinary: Patient denies dysuria, denies hematuria, denies changes in urinary habits, denies genital lesions Musculoskeletal: Patient diffuse muscle aches Psychiatric: Patient denies changes in mood or memory, denies suicidal ideation, denies anxiety Endocrine: Patient denies heat intolerance, denies cold intolerance, denies excessive thirst, denies polyuria Neurological: Patient denies focal neurologic deficits, denies weakness, denies numbness, denies tingling, reports recent episode of drop foot of her left foot which is improving now with physical therapy she was diagnosed with sciatica as outpatient Hem/Lymphatic: Patient denies bleeding tendency, denies bruising, denies swollen lymph glands Allergic/Immun: Patient denies recent allergic reactions Skin: Patient denies rashes, denies pruritis, denies ulcers Past Medical History Past Medical History: Asthma, Diabetes Mellitus, GERD/Reflux, Syncope Additional Past Medical History / Comment(s): back pain- BULGING DISC, ovarian cyst, HX OF DKA,DM TYPE 1(FOR APPROX PAST 9 YEARS) History of Any Multi-Drug Resistant Organisms: MRSA Date of last positivie culture/infection: 03/2014 MDRO Source:: GROIN AREA Past Surgical History: Cholecystectomy Past Anesthesia/Blood Transfusion Reactions: No Reported Reaction Past Psychological History: No Psychological Hx Reported Smoking Status: Former smoker Past Alcohol Use History: None Reported Past Drug Use History: Marijuana - Past Family History Mother History Unknown: Yes Family Medical History: No Reported History Additional Family Medical History / Comment(s): Mother is healthy Father Family Medical History: Diabetes Mellitus Medications and Allergies Home Medications and Allergies Comment(s): Reviewed Home Medications Medication Instructions Recorded Confirmed Type Insulin Aspart [NovoLOG See Protocol SQ ACHS 12/03/16 06/11/17 History (formulary)] Insulin Glargine [Lantus] 15 units SQ HS 02/21/17 06/11/17 History Aspirin/Acetaminophen/Caffeine 2 tab PO DAILY PRN 06/11/17 06/11/17 History [Excedrin Migraine Caplet] Allergies Allergy/AdvReac Type Severity Reaction Status Date / Time red dye AdvReac Intermediate Nausea & Verified 06/11/17 16:06 Vomiting Sulfa (Sulfonamide AdvReac Nausea & Verified 06/11/17 16:06 Antibiotics) Vomiting sulfamethoxazole AdvReac Nausea & Verified 06/11/17 16:06 [From Bactrim] Vomiting trimethoprim [From Bactrim] AdvReac Nausea & Verified 06/11/17 16:06 Vomiting Physical Exam Vitals: Vital Signs Temp Pulse Resp BP Pulse Ox 06/11/17 18:49 98.5 F 110 H 16 115/65 99 06/11/17 15:14 98.8 F 115 H 18 107/65 98 Intake and Output 06/11/17 06/11/17 06/11/17 06:59 14:59 22:59 Other: Weight 61.235 kg Constitutional: No acute distress, conversant, pleasant Eyes: Anicteric sclerae, moist conjunctiva, no lid-lag Pupils equal round reactive to light ENMT: NC/AT Oropharynx clear, no erythema, exudates Neck: Supple, FROM, no masses, or JVD No carotid bruits No thyromegaly Lungs: Clear to auscultation Clear to percussion Normal respiratory effort, no accessory muscle use Cardiovascular: Heart regular in rate and rhythm, No murmurs, gallops, or rubs No peripheral edema Abdominal: Soft Tenderness to deep palpation of the epigastric region, Garner sign negative. Bowel sounds positive , no guarding, rebound or rigidity Abdomen moving with respiration Normoactive bowel sounds No hepatomegaly, No splenomegaly No palpable mass No abdominal wall hernia noted Skin: Normal temperature, tone, texture, turgor No induration No subcutaneous nodules No rash, lesions No ulcers Extremities: No digital cyanosis No clubbing Pedal pulses intact and symmetrical Radial pulses intact and symmetrical No calf tenderness Capillary refill is immediate over bilateral toes and fingers Psychiatric: Alert and oriented to person, place and time Appropriate affect fair judgment Neuro Muscles Strength 5/5 in all 4 extremities Sensation to light touch grossly present throughout Cranial nerves II-XII grossly intact No focal sensory deficits Lymphatics: no palpable cervical or supraclavicular , or inguinal lymph nodes Results CBC & Chem 7: 06/11/17 15:48 06/11/17 20:20 Labs: Abnormal Lab Results - Last 24 Hours (Table) 06/11/17 06/11/17 06/11/17 Range/Units 15:19 15:47 15:48 RDW 16.3 H (11.5-15.5) % Plt Count 495 H (150-450) k/uL Carbon Dioxide (22-30) mmol/L BUN (7-17) mg/dL Creatinine (0.52-1.04) mg/dL Glucose (74-99) mg/dL POC Glucose (mg/dL) 64 L 56 L (75-99) mg/dL AST (14-36) U/L ALT (9-52) U/L Alkaline Phosphatase (38-126) U/L Urine Appearance (Clear) Urine Protein (Negative) Urine Glucose (UA) (Negative) Urine Ketones (Negative) Urine Blood (Negative) Urine Bilirubin (Negative) Ur Leukocyte Esterase (Negative) Urine RBC (0-5) /hpf Urine WBC (0-5) /hpf Ur Squamous Epith Cells (0-4) /hpf Urine Bacteria (None) /hpf Urine Mucus (None) /hpf Urine Yeast (Budding) (None) /hpf 06/11/17 06/11/17 06/11/17 Range/Units 15:48 16:23 16:43 RDW (11.5-15.5) % Plt Count (150-450) k/uL Carbon Dioxide 14 L (22-30) mmol/L BUN 18 H (7-17) mg/dL Creatinine 0.50 L (0.52-1.04) mg/dL Glucose 50 L* (74-99) mg/dL POC Glucose (mg/dL) 70 L (75-99) mg/dL AST 222 H (14-36) U/L ALT 198 H (9-52) U/L Alkaline Phosphatase 607 H (38-126) U/L Urine Appearance Cloudy H (Clear) Urine Protein 2+ H (Negative) Urine Glucose (UA) 4+ H (Negative) Urine Ketones 4+ H (Negative) Urine Blood Trace H (Negative) Urine Bilirubin 1+ H (Negative) Ur Leukocyte Esterase Large H (Negative) Urine RBC 7 H (0-5) /hpf Urine WBC 38 H (0-5) /hpf Ur Squamous Epith Cells 6 H (0-4) /hpf Urine Bacteria Few H (None) /hpf Urine Mucus Rare H (None) /hpf Urine Yeast (Budding) Occasional H (None) /hpf 06/11/17 06/11/17 Range/Units 18:46 20:04 RDW (11.5-15.5) % Plt Count (150-450) k/uL Carbon Dioxide (22-30) mmol/L BUN (7-17) mg/dL Creatinine (0.52-1.04) mg/dL Glucose (74-99) mg/dL POC Glucose (mg/dL) 115 H 133 H (75-99) mg/dL AST (14-36) U/L ALT (9-52) U/L Alkaline Phosphatase (38-126) U/L Urine Appearance (Clear) Urine Protein (Negative) Urine Glucose (UA) (Negative) Urine Ketones (Negative) Urine Blood (Negative) Urine Bilirubin (Negative) Ur Leukocyte Esterase (Negative) Urine RBC (0-5) /hpf Urine WBC (0-5) /hpf Ur Squamous Epith Cells (0-4) /hpf Urine Bacteria (None) /hpf Urine Mucus (None) /hpf Urine Yeast (Budding) (None) /hpf Assessment and Plan Assessment: 21-year-old female with brittle diabetes type 1 on insulin. Presented due to acute onset abdominal pain mainly epigastric and right upper quadrant, was initially found to have hypoglycemia in the emergency department later she became hyperglycemic. She was also found to have some degree of transaminitis with pattern suggestive of biliary tract disease. She was also found to have severe metabolic acidosis with anion gap and severe lactic acidosis. Plan: #Diabetic ketoacidosis #Severe metabolic acidosis secondary to lactic acidosis most likely due to dehydration due to poor by mouth intake Patient initial presentation showed severe acidosis with ketosis in the urine along with hypoglycemia initially was thought to be due to starvation ketosis, due to poor by mouth intake. However her blood sugar has rebounded after tolerating by mouth intake and now blood sugar is persistently in the high 300 range. Patient was started on DKA protocol with insulin drip and IV fluid hydration will transition to D5 0.45 once blood sugars below 250 until anion gap is closed and bicarb is normalized then we will switch to subcutaneous insulin Check A1c level Continue with potassium replacement and magnesium replacement protocol Electrolytes and renal function every 4 hours Blood sugar every hour Patient received 2 L normal saline in the ED, will give another liter of normal saline Recheck lactic acid in 4 hours Continue with normal saline at 200 mL/h Monitor urine output No clinical symptoms of UTI at this time, discontinue antibiotics patient afebrile and white count is normal Keep nothing by mouth #Transaminitis, with elevated alk phos This is suggestive of biliary tract disease possibly could be choledocholithiasis Check liver ultrasound Continue to monitor liver enzymes Lipase is normal, recheck in the morning #DVT prophylaxis Heparin subcu 3 times a day Pain control with [place] Salicylate, Tylenol, alcohol level were all negative Surrogate decision-maker: Patient mother Odalys CODE STATUS: Full code DVT prophylaxis: Heparin subcu 3 times a day Discussed with: Patient, ER, RN Anticipated discharge: 48-[address]: Home A total of 60 minutes of critical care time was spent on the care of this complex patient more than 50% of the time was spent in counseling and care coordination.
[2017-06-11 20:48] LABS: Anion Gap 19 mmol/L; Blood Urea Nitrogen 15 mg/dL (7-17); Carbon Dioxide 14 mmol/L (22-30); Chloride 105 mmol/L (98-107); Glucose 159 mg/dL (74-99); Phosphorus 3.2 mg/dL (2.5-4.5); Potassium 4.3 mmol/L (3.5-5.1); Sodium 138 mmol/L (137-145)
[2017-06-11 21:13] LABS: Acetaminophen <10.0 ug/mL; Alcohol <10 mg/dL; Lipase 110 U/L (23-300); Salicylate <1.0 mg/dL
[2017-06-11] MEDS ORDERED: NALOXONE 0.4 MG/ML 1 ML VIAL IV PRN (21:21)
[2017-06-11] MEDS ORDERED: HYDROcodone/APAP 5-325MG 1 EACH TAB PO PRN (21:24)
[2017-06-11 21:31] LABS: Glucose,Whole Blood 370 mg/dL (75-99)
[2017-06-11] MEDS ORDERED: SODIUM CHLORIDE 0.9% 1,000 ML IV ONE (21:32)
[2017-06-11 21:38] LABS: Glucose,Whole Blood 379 mg/dL (75-99)
[2017-06-11] MEDS ORDERED: Magnesium Replacement Protocol 1 EACH MISC MISCELLANE PRN (21:46)
[2017-06-11] MEDS ORDERED: INSULIN REGULAR BOLUS (FROM DRIP BAG) IV ONE (21:46)
[2017-06-11] MEDS ORDERED: Potassium Replacement Protocol 1 EACH MISC MISCELLANE PRN (21:46)
[2017-06-11 21:57] LABS: Glucose,Whole Blood 386 mg/dL (75-99)
[2017-06-11] MEDS ORDERED: INSULIN REGULAR 100 UNIT in SODIUM CHLORIDE 0.9% 100 ML IV SCH (22:00)
[2017-06-11 22:35] LABS: Glucose,Whole Blood 412 mg/dL (75-99)
[2017-06-11] MEDS: FAMOTIDINE 20 MG TAB PO SCH (22:50)
[2017-06-11 23:52] LABS: Anion Gap 19 mmol/L; Blood Urea Nitrogen 16 mg/dL (7-17); Carbon Dioxide 13 mmol/L (22-30); Chloride 107 mmol/L (98-107); Glucose 287 mg/dL (74-99); Potassium 3.4 mmol/L (3.5-5.1); Sodium 139 mmol/L (137-145)
[2017-06-11 23:56] VITALS: BMI 22.4
[2017-06-11] MEDS: HEPARIN SODIUM,PORCINE 5,000 UNIT/ML 1 ML VIAL SQ SCH (23:59)
[2017-06-12 00:16] LABS: Glucose,Whole Blood 179 mg/dL (75-99)
[2017-06-12] MEDS: D5-0.45% NACL WITH KCL 20MEQ/L 1,000 ML IV SCH ×2 (00:30→10:36)
[2017-06-12] MEDS ORDERED: INSULIN DETEMIR 100 UNIT/ML 10 ML VIAL SQ SCH (00:30)
[2017-06-12] MEDS: INSULIN REGULAR 100 UNIT in SODIUM CHLORIDE 0.9% 100 ML IV SCH ×2 (00:30→02:43)
[2017-06-12] MEDS ORDERED: INSULIN REGULAR 100 UNIT in SODIUM CHLORIDE 0.9% 100 ML IV SCH (00:45)
[2017-06-12 01:18] LABS: Glucose,Whole Blood 113 mg/dL (75-99)
[2017-06-12] MEDS ORDERED: SODIUM CHLORIDE 0.9% 1,000 ML IV ONE (01:56)
[2017-06-12 02:33] LABS: Glucose,Whole Blood 136 mg/dL (75-99)
[2017-06-12 03:11] LABS: Glucose,Whole Blood 133 mg/dL (75-99)
[2017-06-12 04:01] LABS: Hemoglobin A1C 8.8 % (4.0-6.0)
[2017-06-12 04:23] LABS: Anisocytosis Slight; Basophils % (A) 1 %; Eosinophils # (A) 0.1 k/uL (0-0.7); Eosinophils % (A) 3 %; HCT 31.1 % (34.0-46.0); Hypochromasia Slight; Lymphocytes # (A) 3.2 k/uL (1.0-4.8); Lymphocytes % (A) 60 %; MCH 31.6 pg (25.0-35.0); MCHC 32.8 g/dL (31.0-37.0); MCV 96.1 fL (80.0-100.0); Mean Platelet Volume 7.3; Monocytes # (A) 0.3 k/uL (0-1.0); Monocytes % (A) 5 %; Neutrophils # (A) 1.6 k/uL (1.3-7.7); Neutrophils % (A) 30 %; Platelet Count 352 k/uL (150-450); Poikilocytosis Marked; RBC 3.23 m/uL (3.80-5.40); RDW 16.7 % (11.5-15.5); WBC 5.4 k/uL (4.0-11.0)
[2017-06-12 04:33] LABS: ALT 144 U/L (9-52); AST 179 U/L (14-36); Albumin 3.1 g/dL (3.5-5.0); Alkaline Phosphatase 494 U/L (38-126); Anion Gap 14 mmol/L; Blood Urea Nitrogen 13 mg/dL (7-17); Calcium 8.2 mg/dL (8.4-10.2); Carbon Dioxide 13 mmol/L (22-30); Chloride 110 mmol/L (98-107); Glucose 275 mg/dL (74-99); Lipase 62 U/L (23-300); Magnesium 1.8 mg/dL (1.6-2.3); Phosphorus 2.6 mg/dL (2.5-4.5); Potassium 4.8 mmol/L (3.5-5.1); Sodium 137 mmol/L (137-145); Total Bilirubin 0.3 mg/dL (0.2-1.3); Total Protein 5.2 g/dL (6.3-8.2)
[2017-06-12 04:39] LABS: HGB 10.2 gm/dL (11.4-16.0)
[2017-06-12 04:55] LABS: Glucose,Whole Blood 312 mg/dL (75-99)
[2017-06-12 05:44] LABS: Glucose,Whole Blood 185 mg/dL (75-99)
[2017-06-12 06:44] LABS: Glucose,Whole Blood 116 mg/dL (75-99)
[2017-06-12 07:43] LABS: Glucose,Whole Blood 99 mg/dL (75-99)
[2017-06-12 07:55] LABS: Prothrombin Time 9.7 sec (9.0-12.0)
[2017-06-12 08:01] LABS: Partial Thromboplastin Time 19.4 sec (22.0-30.0)
--- NOTE | 2017-06-12 09:38 | US ---
EXAMINATION TYPE: US abdomen complete DATE OF EXAM: 06/12/2017 COMPARISON: US 03/26/2017, CT abdomen and pelvis 03/26/2017 CLINICAL HISTORY: elevated liver enzymes. Type 1 diabetic. Abdominal pain. Cholecystectomy EXAM MEASUREMENTS: Liver Length: 22.9 cm Gallbladder Wall: Surgically absent CBD: 0.4 cm Spleen: 12.0 cm Right Kidney: 12.9 x 4.3 x 5.1 cm Left Kidney: 11.5 x 4.4 x 4.6 cm Pancreas: Obscured by bowel gas, visualized portions show no abnormality Liver: Enlarged, coarse, heterogeneous echotexture Gallbladder: Surgically absent Evidence for sonographic Garner's sign: No CBD: wnl Spleen: wnl Right Kidney: No hydronephrosis or masses seen Left Kidney: No hydronephrosis or masses seen Upper IVC: wnl Abd Aorta: wnl Visualized liver is enlarged and heterogeneous in appearance which correlates with recent CT. No worr isome intrahepatic mass or hepatic ductal dilatation is seen on images saved. There are small amount of perihepatic ascites along inferior margin towards end of study redemonstrated IMPRESSION: Hepatomegaly with heterogeneous liver and small amount of perihepatic ascites inferiorly redemonstrated. No significant change from recent CT. Correlate with pathology from random biopsy [address] advised.
[2017-06-12 09:50] LABS: Glucose,Whole Blood 312 mg/dL (75-99)
[2017-06-12] MEDS: FAMOTIDINE 20 MG TAB PO SCH (10:10)
[2017-06-12] MEDS: HEPARIN SODIUM,PORCINE 5,000 UNIT/ML 1 ML VIAL SQ SCH (10:12)
--- NOTE | 2017-06-12 10:44 | P.CONS ---
History of Present Illness - Reason for Consult Consult date: 06/12/17 Elevated liver enzymes Requesting physician: Saida Darden - History of Present Illness 21-year-old female with a past medical history of poorly controlled insulin- dependent diabetes mellitus admitted with intractable nausea vomiting upper midepigastric right upper quadrant abdominal pain with recent acalculous cholecystectomy in February 2017. Patient has been evaluated over the last 3-4 months for elevated liver enzymes. Overview of liver enzymes and additional serologic chronic liver disease, chemistries are as follows: Normal total bilirubin. AST 117-2693. ALT 144- 672. Alkaline phosphatase 380-1469. GGT 1193. Alpha-1 antitrypsin 79.6. AFP 5.3-E.1. Ceruloplasmin 35.3. Hemoglobin 10.1-15.4. MCV 93-103. Platelet 259- 495. HIV, hepatitis screen, CMV, EBV, influenza all negative. SMA 5. AMA 2.6. SYLVIA negative. She underwent a liver core biopsy in March 2017 secondary to persistent elevated transaminases; results of biopsy favored glycogen hepatopathy secondary to history of long-standing type 1 diabetes and poorly controlled blood sugars. No significant inflammation or fibrosis. Nausea vomiting has improved but she still reports upper abdominal pain. Lactic acid 7.6 with hydration 4.9. Positive acetone. Glucose ranges less than 20-1031 over the last 3-4 months. Afebrile. 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 Ultrasound abdomen visualized liver is enlarged and heterogeneous in appearance. No intra-hepatic mass or hepatic ductal dilation seen. Small amount of perihepatic ascites along the inferior margin. CBD within normal limits. Spleen within normal limits. Review of Systems Constitutional: Denies fever, chills, sweats, weight gain, or loss. HEENT: History of migraines denies, blurred vision or loss, earaches, drainage, tinnitus, oral mucosal lesions, dysphagia, or odynophagia. CARDIAC: Negative for chest pain, arrhythmias, or palpitation. RESPIRATORY: Bronchial asthma. Negative for shortness of breath, hemoptysis, cough, or sputum production. GI: See HPI for pertinent findings. : Negative for hematuria, urgency, frequency, polyuria, or dysuria. GYNc: Denies possibility of . Negative vaginal discharge. MUSCULOSKELETAL: History of chronic back pain. Left foot drop. NEUROLOGIC: Negative for stroke or TIA. ENDOCRINE: Diabetes mellitus insulin-dependent. Negative for thyroid problems. SKIN: History of MRSA. Negative for rash or itching. PSYCHIATRIC: Negative history for depression and anxiety Past Medical History Past Medical History: Asthma, Diabetes Mellitus, GERD/Reflux, Syncope Additional Past Medical History / Comment(s): back pain- BULGING DISC, ovarian cyst, HX OF DKA,DM TYPE 1(FOR APPROX PAST 9 YEARS) History of Any Multi-Drug Resistant Organisms: MRSA Year Discovered:: 03/2014 MDRO Source:: GROIN AREA Past Surgical History: Cholecystectomy Past Anesthesia/Blood Transfusion Reactions: No Reported Reaction Past Psychological History: No Psychological Hx Reported Additional Psychological History / Comment(s): Pt resides with her mother. She is independent. Smoking Status: Light tobacco smoker Past Alcohol Use History: None Reported Additional Past Alcohol Use History / Comment(s): Pt states she has smoked casually (1 pack per 2 weeks) but quit jan 2017. pt states she smokes only socially, rare Past Drug Use History: Marijuana Additional Drug Use History / Comment(s): occasional marijuana use - Past Family History Mother History Unknown: Yes Family Medical History: No Reported History Additional Family Medical History / Comment(s): Mother is healthy Father Family Medical History: Diabetes Mellitus Medications and Allergies Home Medications Medication Instructions Recorded Confirmed Type Insulin Aspart [NovoLOG See Protocol SQ ACHS 12/03/16 06/11/17 History (formulary)] Insulin Glargine [Lantus] 15 units SQ HS 02/21/17 06/11/17 History Aspirin/Acetaminophen/Caffeine 2 tab PO DAILY PRN 06/11/17 06/11/17 History [Excedrin Migraine Caplet] Allergies Allergy/AdvReac Type Severity Reaction Status Date / Time red dye AdvReac Intermediate Nausea & Verified 06/11/17 16:06 Vomiting Sulfa (Sulfonamide AdvReac Nausea & Verified 06/11/17 16:06 Antibiotics) Vomiting sulfamethoxazole AdvReac Nausea & Verified 06/11/17 16:06 [From Bactrim] Vomiting trimethoprim [From Bactrim] AdvReac Nausea & Verified 06/11/17 16:06 Vomiting Physical Exam Vitals: Vital Signs Temp Pulse Pulse Resp BP BP Pulse Ox 06/12/17 08:00 96.5 F L 80 16 110/66 98 06/12/17 04:00 98.2 F 91 16 113/73 98 06/11/17 22:00 103 H 06/11/17 19:56 99.1 F 103 H 20 110/69 98 06/11/17 18:49 98.5 F 110 H 16 115/65 99 06/11/17 15:14 98.8 F 115 H 18 107/65 98 Intake and Output 06/11/17 06/12/17 06/12/17 22:59 06:59 14:59 Intake Total 612.400 0 Output Total 350 Balance 262.400 0 Intake: IV 600 D5-0.45% NaCl with KCl 600 20Meq/l 1,000 ml @ 150 mls/hr IV .Q6H40M JAMAL Rx# :[id number] Intake, IV Titration 12.400 0 Amount Insulin Regular 100 unit 12.400 0 In Sodium Chloride 0.9% 100 ml @ 1 mls/hr IV . Q24H JAMAL Rx#:[id number] Output: Urine 350 Other: Voiding Method Toilet # Voids 1 Weight 61.235 kg 61.23 kg General appearance: The patient is alert, oriented, in no acute distress. HET: Head is normocephalic and atraumatic. Pupils are equal and reactive. Oropharynx is clear without lesions. Neck: Supple without lymphadenopathy. Trachea midline. Heart: S1 S2. Regular rate and rhythm. Lungs: No crackles or wheezes are heard. Abdomen: Soft, midepigastric tenderness, nondistended with bowel sounds. No peritoneal signs. No palpable organomegaly or masses. Extremities: Left foot drop. Normal skin color and turgor. No cyanosis, rash, ulceration, clubbing, or edema. Radial and pedal pulses are 2/4 bilaterally. Neurological: No focal deficits. Strength and sensation are grossly intact. Results CBC & Chem 7: 06/12/17 03:48 06/12/17 03:48 Labs: Abnormal Lab Results - Last 24 Hours (Table) 06/11/17 06/11/17 06/11/17 Range/Units 15:19 15:47 15:48 RBC (3.80-5.40) m/uL Hgb (11.4-16.0) gm/dL Hct (34.0-46.0) % RDW 16.3 H (11.5-15.5) % Plt Count 495 H (150-450) k/uL APTT (22.0-30.0) sec Potassium (3.5-5.1) mmol/L Chloride (98-107) mmol/L Carbon Dioxide (22-30) mmol/L BUN (7-17) mg/dL Creatinine (0.52-1.04) mg/dL Glucose (74-99) mg/dL POC Glucose (mg/dL) 64 L 56 L (75-99) mg/dL Hemoglobin A1c (4.0-6.0) % Plasma Lactic Acid Ben (0.7-2.0) mmol/L Calcium (8.4-10.2) mg/dL AST (14-36) U/L ALT (9-52) U/L Alkaline Phosphatase (38-126) U/L Total Protein (6.3-8.2) g/dL Albumin (3.5-5.0) g/dL Urine Appearance (Clear) Urine Protein (Negative) Urine Glucose (UA) (Negative) Urine Ketones (Negative) Urine Blood (Negative) Urine Bilirubin (Negative) Ur Leukocyte Esterase (Negative) Urine RBC (0-5) /hpf Urine WBC (0-5) /hpf Ur Squamous Epith Cells (0-4) /hpf Urine Bacteria (None) /hpf Urine Mucus (None) /hpf Urine Yeast (Budding) (None) /hpf 06/11/17 06/11/17 06/11/17 Range/Units 15:48 16:23 16:43 RBC (3.80-5.40) m/uL Hgb (11.4-16.0) gm/dL Hct (34.0-46.0) % RDW (11.5-15.5) % Plt Count (150-450) k/uL APTT (22.0-30.0) sec Potassium (3.5-5.1) mmol/L Chloride (98-107) mmol/L Carbon Dioxide 14 L (22-30) mmol/L BUN 18 H (7-17) mg/dL Creatinine 0.50 L (0.52-1.04) mg/dL Glucose 50 L* (74-99) mg/dL POC Glucose (mg/dL) 70 L (75-99) mg/dL Hemoglobin A1c (4.0-6.0) % Plasma Lactic Acid Ben (0.7-2.0) mmol/L Calcium (8.4-10.2) mg/dL AST 222 H (14-36) U/L ALT 198 H (9-52) U/L Alkaline Phosphatase 607 H (38-126) U/L Total Protein (6.3-8.2) g/dL Albumin (3.5-5.0) g/dL Urine Appearance Cloudy H (Clear) Urine Protein 2+ H (Negative) Urine Glucose (UA) 4+ H (Negative) Urine Ketones 4+ H (Negative) Urine Blood Trace H (Negative) Urine Bilirubin 1+ H (Negative) Ur Leukocyte Esterase Large H (Negative) Urine RBC 7 H (0-5) /hpf Urine WBC 38 H (0-5) /hpf Ur Squamous Epith Cells 6 H (0-4) /hpf Urine Bacteria Few H (None) /hpf Urine Mucus Rare H (None) /hpf Urine Yeast (Budding) Occasional H (None) /hpf 06/11/17 06/11/17 06/11/17 Range/Units 18:46 20:04 20:20 RBC (3.80-5.40) m/uL Hgb (11.4-16.0) gm/dL Hct (34.0-46.0) % RDW (11.5-15.5) % Plt Count (150-450) k/uL APTT (22.0-30.0) sec Potassium (3.5-5.1) mmol/L Chloride (98-107) mmol/L Carbon Dioxide 14 L (22-30) mmol/L BUN (7-17) mg/dL Creatinine (0.52-1.04) mg/dL Glucose 159 H (74-99) mg/dL POC Glucose (mg/dL) 115 H 133 H (75-99) mg/dL Hemoglobin A1c (4.0-6.0) % Plasma Lactic Acid Ben (0.7-2.0) mmol/L Calcium (8.4-10.2) mg/dL AST (14-36) U/L ALT (9-52) U/L Alkaline Phosphatase (38-126) U/L Total Protein (6.3-8.2) g/dL Albumin (3.5-5.0) g/dL Urine Appearance (Clear) Urine Protein (Negative) Urine Glucose (UA) (Negative) Urine Ketones (Negative) Urine Blood (Negative) Urine Bilirubin (Negative) Ur Leukocyte Esterase (Negative) Urine RBC (0-5) /hpf Urine WBC (0-5) /hpf Ur Squamous Epith Cells (0-4) /hpf Urine Bacteria (None) /hpf Urine Mucus (None) /hpf Urine Yeast (Budding) (None) /hpf 06/11/17 06/11/17 06/11/17 Range/Units 20:36 20:36 21:29 RBC (3.80-5.40) m/uL Hgb (11.4-16.0) gm/dL Hct (34.0-46.0) % RDW (11.5-15.5) % Plt Count (150-450) k/uL APTT (22.0-30.0) sec Potassium (3.5-5.1) mmol/L Chloride (98-107) mmol/L Carbon Dioxide (22-30) mmol/L BUN (7-17) mg/dL Creatinine (0.52-1.04) mg/dL Glucose (74-99) mg/dL POC Glucose (mg/dL) 370 H (75-99) mg/dL Hemoglobin A1c 8.8 H (4.0-6.0) % Plasma Lactic Acid Ben 7.6 H* (0.7-2.0) mmol/L Calcium (8.4-10.2) mg/dL AST (14-36) U/L ALT (9-52) U/L Alkaline Phosphatase (38-126) U/L Total Protein (6.3-8.2) g/dL Albumin (3.5-5.0) g/dL Urine Appearance (Clear) Urine Protein (Negative) Urine Glucose (UA) (Negative) Urine Ketones (Negative) Urine Blood (Negative) Urine Bilirubin (Negative) Ur Leukocyte Esterase (Negative) Urine RBC (0-5) /hpf Urine WBC (0-5) /hpf Ur Squamous Epith Cells (0-4) /hpf Urine Bacteria (None) /hpf Urine Mucus (None) /hpf Urine Yeast (Budding) (None) /hpf 06/11/17 06/11/17 06/11/17 Range/Units 21:36 21:43 22:32 RBC (3.80-5.40) m/uL Hgb (11.4-16.0) gm/dL Hct (34.0-46.0) % RDW (11.5-15.5) % Plt Count (150-450) k/uL APTT (22.0-30.0) sec Potassium (3.5-5.1) mmol/L Chloride (98-107) mmol/L Carbon Dioxide (22-30) mmol/L BUN (7-17) mg/dL Creatinine (0.52-1.04) mg/dL Glucose (74-99) mg/dL POC Glucose (mg/dL) 379 H 386 H 412 H (75-99) mg/dL Hemoglobin A1c (4.0-6.0) % Plasma Lactic Acid Ben (0.7-2.0) mmol/L Calcium (8.4-10.2) mg/dL AST (14-36) U/L ALT (9-52) U/L Alkaline Phosphatase (38-126) U/L Total Protein (6.3-8.2) g/dL Albumin (3.5-5.0) g/dL Urine Appearance (Clear) Urine Protein (Negative) Urine Glucose (UA) (Negative) Urine Ketones (Negative) Urine Blood (Negative) Urine Bilirubin (Negative) Ur Leukocyte Esterase (Negative) Urine RBC (0-5) /hpf Urine WBC (0-5) /hpf Ur Squamous Epith Cells (0-4) /hpf Urine Bacteria (None) /hpf Urine Mucus (None) /hpf Urine Yeast (Budding) (None) /hpf 06/11/17 06/12/17 06/12/17 Range/Units 23:29 00:11 00:39 RBC (3.80-5.40) m/uL Hgb (11.4-16.0) gm/dL Hct (34.0-46.0) % RDW (11.5-15.5) % Plt Count (150-450) k/uL APTT (22.0-30.0) sec Potassium 3.4 L (3.5-5.1) mmol/L Chloride (98-107) mmol/L Carbon Dioxide 13 L (22-30) mmol/L BUN (7-17) mg/dL Creatinine (0.52-1.04) mg/dL Glucose 287 H (74-99) mg/dL POC Glucose (mg/dL) 179 H (75-99) mg/dL Hemoglobin A1c (4.0-6.0) % Plasma Lactic Acid Ben 7.3 H* (0.7-2.0) mmol/L Calcium (8.4-10.2) mg/dL AST (14-36) U/L ALT (9-52) U/L Alkaline Phosphatase (38-126) U/L Total Protein (6.3-8.2) g/dL Albumin (3.5-5.0) g/dL Urine Appearance (Clear) Urine Protein (Negative) Urine Glucose (UA) (Negative) Urine Ketones (Negative) Urine Blood (Negative) Urine Bilirubin (Negative) Ur Leukocyte Esterase (Negative) Urine RBC (0-5) /hpf Urine WBC (0-5) /hpf Ur Squamous Epith Cells (0-4) /hpf Urine Bacteria (None) /hpf Urine Mucus (None) /hpf Urine Yeast (Budding) (None) /hpf 06/12/17 06/12/17 06/12/17 Range/Units 01:15 02:13 03:08 RBC (3.80-5.40) m/uL Hgb (11.4-16.0) gm/dL Hct (34.0-46.0) % RDW (11.5-15.5) % Plt Count (150-450) k/uL APTT (22.0-30.0) sec Potassium (3.5-5.1) mmol/L Chloride (98-107) mmol/L Carbon Dioxide (22-30) mmol/L BUN (7-17) mg/dL Creatinine (0.52-1.04) mg/dL Glucose (74-99) mg/dL POC Glucose (mg/dL) 113 H 136 H 133 H (75-99) mg/dL Hemoglobin A1c (4.0-6.0) % Plasma Lactic Acid Ben (0.7-2.0) mmol/L Calcium (8.4-10.2) mg/dL AST (14-36) U/L ALT (9-52) U/L Alkaline Phosphatase (38-126) U/L Total Protein (6.3-8.2) g/dL Albumin (3.5-5.0) g/dL Urine Appearance (Clear) Urine Protein (Negative) Urine Glucose (UA) (Negative) Urine Ketones (Negative) Urine Blood (Negative) Urine Bilirubin (Negative) Ur Leukocyte Esterase (Negative) Urine RBC (0-5) /hpf Urine WBC (0-5) /hpf Ur Squamous Epith Cells (0-4) /hpf Urine Bacteria (None) /hpf Urine Mucus (None) /hpf Urine Yeast (Budding) (None) /hpf 06/12/17 06/12/17 06/12/17 Range/Units 03:48 03:48 04:34 RBC 3.23 L (3.80-5.40) m/uL Hgb 10.2 L D (11.4-16.0) gm/dL Hct 31.1 L (34.0-46.0) % RDW 16.7 H (11.5-15.5) % Plt Count (150-450) k/uL APTT (22.0-30.0) sec Potassium (3.5-5.1) mmol/L Chloride 110 H (98-107) mmol/L Carbon Dioxide 13 L (22-30) mmol/L BUN (7-17) mg/dL Creatinine 0.42 L (0.52-1.04) mg/dL Glucose 275 H (74-99) mg/dL POC Glucose (mg/dL) 312 H (75-99) mg/dL Hemoglobin A1c (4.0-6.0) % Plasma Lactic Acid Ben (0.7-2.0) mmol/L Calcium 8.2 L (8.4-10.2) mg/dL AST 179 H (14-36) U/L ALT 144 H (9-52) U/L Alkaline Phosphatase 494 H (38-126) U/L Total Protein 5.2 L (6.3-8.2) g/dL Albumin 3.1 L (3.5-5.0) g/dL Urine Appearance (Clear) Urine Protein (Negative) Urine Glucose (UA) (Negative) Urine Ketones (Negative) Urine Blood (Negative) Urine Bilirubin (Negative) Ur Leukocyte Esterase (Negative) Urine RBC (0-5) /hpf Urine WBC (0-5) /hpf Ur Squamous Epith Cells (0-4) /hpf Urine Bacteria (None) /hpf Urine Mucus (None) /hpf Urine Yeast (Budding) (None) /hpf 06/12/17 06/12/17 06/12/17 Range/Units 05:43 06:40 07:19 RBC (3.80-5.40) m/uL Hgb (11.4-16.0) gm/dL Hct (34.0-46.0) % RDW (11.5-15.5) % Plt Count (150-450) k/uL APTT 19.4 L (22.0-30.0) sec Potassium (3.5-5.1) mmol/L Chloride (98-107) mmol/L Carbon Dioxide (22-30) mmol/L BUN (7-17) mg/dL Creatinine (0.52-1.04) mg/dL Glucose (74-99) mg/dL POC Glucose (mg/dL) 185 H 116 H (75-99) mg/dL Hemoglobin A1c (4.0-6.0) % Plasma Lactic Acid Ben (0.7-2.0) mmol/L Calcium (8.4-10.2) mg/dL AST (14-36) U/L ALT (9-52) U/L Alkaline Phosphatase (38-126) U/L Total Protein (6.3-8.2) g/dL Albumin (3.5-5.0) g/dL Urine Appearance (Clear) Urine Protein (Negative) Urine Glucose (UA) (Negative) Urine Ketones (Negative) Urine Blood (Negative) Urine Bilirubin (Negative) Ur Leukocyte Esterase (Negative) Urine RBC (0-5) /hpf Urine WBC (0-5) /hpf Ur Squamous Epith Cells (0-4) /hpf Urine Bacteria (None) /hpf Urine Mucus (None) /hpf Urine Yeast (Budding) (None) /hpf 06/12/17 06/12/17 Range/Units 07:19 09:47 RBC (3.80-5.40) m/uL Hgb (11.4-16.0) gm/dL Hct (34.0-46.0) % RDW (11.5-15.5) % Plt Count (150-450) k/uL APTT (22.0-30.0) sec Potassium (3.5-5.1) mmol/L Chloride (98-107) mmol/L Carbon Dioxide (22-30) mmol/L BUN (7-17) mg/dL Creatinine (0.52-1.04) mg/dL Glucose (74-99) mg/dL POC Glucose (mg/dL) 312 H (75-99) mg/dL Hemoglobin A1c (4.0-6.0) % Plasma Lactic Acid Ben 4.9 H* (0.7-2.0) mmol/L Calcium (8.4-10.2) mg/dL AST (14-36) U/L ALT (9-52) U/L Alkaline Phosphatase (38-126) U/L Total Protein (6.3-8.2) g/dL Albumin (3.5-5.0) g/dL Urine Appearance (Clear) Urine Protein (Negative) Urine Glucose (UA) (Negative) Urine Ketones (Negative) Urine Blood (Negative) Urine Bilirubin (Negative) Ur Leukocyte Esterase (Negative) Urine RBC (0-5) /hpf Urine WBC (0-5) /hpf Ur Squamous Epith Cells (0-4) /hpf Urine Bacteria (None) /hpf Urine Mucus (None) /hpf Urine Yeast (Budding) (None) /hpf US - abdomen: report reviewed (Dr. 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 An underlying genetic or glycogen deficiency cannot be entirely excluded. Current Visit: Yes Status: Acute Code(s): R79.89 - OTHER SPECIFIED ABNORMAL FINDINGS OF BLOOD CHEMISTRY SNOMED Code(s): 506950283 (2) Metabolic acidosis Current Visit: Yes Status: Acute Code(s): E87.2 - ACIDOSIS SNOMED Code(s) : 85949174 (3) Insulin dependent diabetes mellitus Current Visit: Yes Status: Chronic Code(s): E11.9 - TYPE 2 DIABETES MELLITUS WITHOUT COMPLICATIONS; Z79.4 - LOCOMOTIVE REPAIRER DIESEL (CURRENT) USE OF INSULIN SNOMED Code(s): 30690438 (4) DKA (diabetic ketoacidoses) Current Visit: No Status: Acute Code(s): E13.10 - OTH DIABETES MELLITUS WITH KETOACIDOSIS WITHOUT COMA SNOMED Code(s): 990847789 (5) Foot drop Current Visit: No Status: Chronic Code(s): M21.379 - FOOT DROP, UNSPECIFIED FOOT SNOMED Code(s): 2627926 Plan: 1. Case was discussed in detail by Dr. Mckeon and with Dr. Darden regarding her elevated liver enzymes and liver biopsy results. Due to the multiple complaints multiple hospitalizations poorly controlled sugars and persistent elevation of liver enzymes as well as neurological complaints being investigated in the outpatient setting it was determined the patient should be transferred to a tertiary center for further evaluation and treatment. Thank you for this kind referral and the opportunity to participate in the care of your patient. This consultation was discussed with Dr. Mckeon. The impression and plan of care have been directed as dictated.
[2017-06-12 10:45] LABS: Anisocytosis Slight; HCT 29.5 % (34.0-46.0); HGB 9.9 gm/dL (11.4-16.0); Hyperchromasia Slight; MCH 32.2 pg (25.0-35.0); MCHC 33.5 g/dL (31.0-37.0); Mean Platelet Volume 7.2; Platelet Count 331 k/uL (150-450); Poikilocytosis Marked; RBC 3.07 m/uL (3.80-5.40); RDW 16.5 % (11.5-15.5); WBC 6.6 k/uL (4.0-11.0)
[2017-06-12 10:52] LABS: Anion Gap 15 mmol/L; Carbon Dioxide 14 mmol/L (22-30); Chloride 112 mmol/L (98-107); Glucose 92 mg/dL (74-99); Phosphorus 3.4 mg/dL (2.5-4.5); Potassium 4.1 mmol/L (3.5-5.1); Sodium 141 mmol/L (137-145)
[2017-06-12 10:53] LABS: Blood Urea Nitrogen 12 mg/dL (7-17); Calcium 8.4 mg/dL (8.4-10.2); Magnesium 1.8 mg/dL (1.6-2.3)
[2017-06-12 11:18] LABS: Glucose,Whole Blood 290 mg/dL (75-99)
--- NOTE | 2017-06-12 11:39 | P.DS ---
Providers Date of admission: 06/12/17 09:50 Expected date of discharge: 06/12/17 Attending physician: Corwin Seay MD Consults: YUDITH Moralez Primary care physician: Deborah Stearns - Discharge Diagnosis(es) (1) DKA (diabetic ketoacidoses) Current Visit: No Status: Acute (2) Lactic acid increased Current Visit: No Status: Acute (3) Transaminitis Current Visit: Yes Status: Acute (4) Glycogenic hepatopathy Current Visit: Yes Status: Acute (5) Metabolic acidosis Current Visit: Yes Status: Acute Hospital Course: Patient is a 21-year-old female with a history of type 1 diabetes mellitus, GERD, elevated liver enzymes, and sciatica who presented to the emergency department with 1 day of abdominal pain, nausea, and vomiting. On arrival to the ER she was found to be hypoglycemic with a blood sugar of 64 and 159 on arrival. She was also having nausea and vomiting. They noted that she had an anion and gap metabolic acidosis and elevated liver enzymes. They were concerned and started giving her IV fluids and admitted her after a dose of Rocephin for possible urinary tract infection. After admission further investigation was done. Her blood sugars continue to elevate to a max of 429. She was found have a positive serum acetone. Lactic acid was checked which came back positive at 7.6. She was given additional IV fluids and started on an insulin drip for DKA. On review of urine she does not appear to have an infection but does have glucose urine, proteinuria, positive ketones. Due to her abdominal pain and abdominal ultrasound was ordered. This came back with an enlarged heterogeneous appearance of the liver at 22.9 cm. There is a small amount of perihepatic ascites. Due to her hypoglycemia and elevated lactic acidosis of further investigation of her prior hospitalizations was performed. She has been hospitalized 3 times in the last 3 months. All of them included hospitalization for DKA. During the hospitalization she also had her gallbladder removed for elevated liver enzymes. Her max liver enzymes were found to be an AST of 2693 and an ALT of 670. At that point in time she had liver biopsy performed which showed glycogen hepatopathy. However, the liver biopsy results were not back on discharge and she was lost to follow-up. Her Tylenol and salicylate levels were negative. Her blood sugars improved and she was transitioned to D5 half normal with potassium. Her insulin drip had to be held due to hypoglycemia, but was then restarted when her BS was again 312. Her last set of blood work showed an anion gap of 15 and bicarb of 14. Repeat is currently pending . Case was discussed with gastroenterology and there was concern for her glycogen hepatopathy was secondary to uncontrolled blood sugars versus other glycogen storage disease. They recommended transfer to tertiary care center for evaluation by hepatology. She is also had a constellation of other symptoms during the last several months. She has been struggling with worsening headaches, nausea, and vomiting. She then developed weakness of her left lower extremity resulting in foot drop. She had an MRI done in March 2017 which showed nonspecific white matter hyperintensity that may represent transient minimal flow of cerebrospinal fluid and mild sinus disease. She had a lumbar spine MRI done which showed posterior disc herniation at L4 5 and L5-S1 without significant impingement on the spinal canal. Her hemoglobin A1c was checked this hospitalization was 8.8 which is down from 10.2 in February 2017. She also had her ferritin level checked in February which was 122, alpha protein was 5.3, alpha-1 antitrypsin level was slightly low at 79.6, her ceruloplasmin was 35.3. She also had a serum protein electrophoresis performed which showed hyperproteinemia but no monoclonal paraprotein. Case was discussed with MICU fellow at [facility] who agreed with transfer of patient for further evaluation of her elevated liver enzymes. Patient is agreement with transfer. She is aware that there is increased risk of transfer secondary to being on an insulin drip. Patient seen and examined at bedside. Nausea is much improved, abdominal pain is much improved, asking to eat. No chest pain or shortness of breath. No swelling. She has been taking Lantus 15 units at night along with carb counting and corrective insulin. She has been following the physician bankruptcy legal assistant for Dr. Stearns's office. She has not seen an java web application developer in quite some time but has appointment in late June. Vital signs reviewed and stable. General: non toxic, no distress, appears at stated age Derm: warm, dry Head: atraumatic, normocephalic, symmetric Eyes: EOMI, no lid lag, anicteric sclera Mouth: no lip lesion, mucus membranes dry Cardiovascular: S1S2 reg, no murmur, positive posterior tibial pulse bilateral, Lungs: CTA bilateral, no rhonchi, no rales , no accessory muscle use Abdominal: soft, nontender to palpation, no guarding, no appreciable organomegaly Ext: no gross muscle atrophy, no edema, no contractures Neuro: CN II-XI grossly intact, no focal neuro deficits Psych: Alert, oriented, appropriate affect A total of 60 minutes of time were spent preparing this complex discharge summary . Pertinent Studies: Abdominal ultrasound-enlarged heterogeneous liver Patient Condition at Discharge: Stable Plan - Discharge Summary New Discharge Prescriptions: No Action Insulin Aspart [NovoLOG (formulary)] See Protocol SQ ACHS Insulin Glargine [Lantus] 15 units SQ HS Aspirin/Acetaminophen/Caffeine [Excedrin Migraine Caplet] 2 tab PO DAILY PRN PRN Reason: Migraine Headache Discharge Medication List Insulin Aspart [NovoLOG (formulary)] See Protocol SQ ACHS 12/03/16 [History] Insulin Glargine [Lantus] 15 units SQ HS 02/21/17 [History] Aspirin/Acetaminophen/Caffeine [Excedrin Migraine Caplet] 2 tab PO DAILY PRN [History] Follow up Appointment(s)/Referral(s): Ana Sebastian FNRoberto [REFERRING] - 1-2 days Discharge Disposition: DISCH/TRANS TO A [facility]
[2017-06-12 12:07] VITALS: BP 107/78; PULSE 89; RESP 22; TEMP 98.3
[2017-06-12 12:10] LABS: Glucose,Whole Blood 230 mg/dL (75-99)
[2017-06-12 12:23] LABS: Anion Gap 21 mmol/L; Blood Urea Nitrogen 10 mg/dL (7-17); Calcium 8.7 mg/dL (8.4-10.2); Carbon Dioxide 12 mmol/L (22-30); Chloride 106 mmol/L (98-107); Potassium 4.6 mmol/L (3.5-5.1); Sodium 139 mmol/L (137-145)
[2017-06-12 12:35] LABS: Urine Alcohol Negative (Negative); Urine Barbiturate Negative (Negative); Urine Cocaine Negative (Negative); Urine Methadone Negative (Negative); Urine Opiates Negative (Negative); Urine Phencyclidine Negative (Negative)
[2017-06-12 12:39] LABS: Glucose 240 mg/dL (74-99)
== END 2017-06-12 12:27 | disposition short-term general hospital (02) | DRG 638 ==
LOC: EC 14:59 → 6PED 19:20 → 6SEL 06-12 02:28 → OBSVTOIN 06-12 09:50
PROVIDERS: ADMIT Internal Medicine; ATTEND Internal Medicine
DX: E10.10 Type 1 diabetes mellitus with ketoacidosis without coma (principal); R18.8 Other ascites; E10.649 Type 1 diabetes mellitus with hypoglycemia without coma; E86.0 Dehydration; M51.37 Other intervertebral disc degeneration, lumbosacral region; K21.9 Gastro-esophageal reflux disease without esophagitis; J45.909 Unspecified asthma, uncomplicated; F17.210 Nicotine dependence, cigarettes, uncomplicated; M21.379 Foot drop, unspecified foot; K76.1 Chronic passive congestion of liver; G43.909 Migraine, unspecified, not intractable, without status migrainosus; M51.36 Other intervertebral disc degeneration, lumbar region; F12.90 Cannabis use, unspecified, uncomplicated; Z83.3 Family history of diabetes mellitus; Z79.4 Long term (current) use of insulin; Z79.82 Long term (current) use of aspirin; Z90.49 Acquired absence of other specified parts of digestive tract; Z86.14 Personal history of Methicillin resistant Staphylococcus aureus infection; Z88.2 Allergy status to sulfonamides; Z88.1 Allergy status to other antibiotic agents; Z91.02 Food additives allergy status
CPT/HCPCS: 36415; 76700; 80048; 80051; 80053; 80306; 80320; 81001; 81025; 82009; 82565; 82947; 83036; 83520; 83605; 83690; 83735; 84100; 84520; 85025; 85027; 85610; 85730; 87502; 96361; 96374; 96375; 99284

== ENCOUNTER 2017-07-15 10:02 | Inpatient (IN) | payer OTHER ==
[2017-07-15 10:39] LABS: Glucose,Whole Blood 330 mg/dL (75-99)
[2017-07-15] MEDS ORDERED: SODIUM CHLORIDE 0.9% 1,000 ML IV ONE ×4 (10:47→23:22)
--- NOTE | 2017-07-15 10:48 | ED ---
General Adult HPI - General Chief complaint: Recheck/Abnormal Lab/Rx Stated complaint: DKA Time Seen by Provider: 07/15/17 10:33 Source: patient, RN notes reviewed, old records reviewed Mode of arrival: ambulatory Limitations: no limitations - History of Present Illness Initial comments: 22-year-old female presents for evaluation of abnormal outpatient labs. Patient was sent in by her restorer paper and prints who stated that she was currently in DKA. Patient has history of type 1 diabetes. She is on NovoLog and Lantus. She denies any complaints. No nausea or vomiting. No chest pain or shortness of breath. She does report that approximately one week ago she developed a gastrointestinal illness consisting of nausea vomiting and diarrhea. She states the symptoms have resolved and she has been improving over the past 3-4 days. Denies fever or chills. Denies polyuria, denies polydipsia. Patient has no complaints at the time my evaluation. She is uncertain which lab were abnormal. - Related Data Home Medications Medication Instructions Recorded Confirmed Insulin Aspart [NovoLOG See Protocol SQ ACHS 12/03/16 07/15/17 (formulary)] Insulin Glargine [Lantus] 15 units SQ HS 02/21/17 07/15/17 Cholecalciferol [Vitamin D3] 1,000 unit PO DAILY 07/15/17 07/15/17 Allergies Allergy/AdvReac Type Severity Reaction Status Date / Time Sulfa (Sulfonamide AdvReac Nausea & Verified 07/15/17 10:53 Antibiotics) Vomiting sulfamethoxazole AdvReac Nausea & Verified 07/15/17 10:53 [From Bactrim] Vomiting trimethoprim [From Bactrim] AdvReac Nausea & Verified 07/15/17 10:53 Vomiting Review of Systems ROS Statement: Those systems with pertinent positive or pertinent negative responses have been documented in the HPI. ROS Other: All systems not noted in ROS Statement are negative. Past Medical History Past Medical History: Asthma, Diabetes Mellitus, GERD/Reflux, Syncope Additional Past Medical History / Comment(s): back pain- BULGING DISC, ovarian cyst, HX OF DKA,DM TYPE 1(FOR APPROX PAST 9 YEARS) History of Any Multi-Drug Resistant Organisms: MRSA Date of last positivie culture/infection: 03/2014 MDRO Source:: GROIN AREA Past Surgical History: Cholecystectomy Past Anesthesia/Blood Transfusion Reactions: No Reported Reaction Past Psychological History: No Psychological Hx Reported Smoking Status: Light tobacco smoker Past Alcohol Use History: None Reported Past Drug Use History: Marijuana - Past Family History Mother History Unknown: Yes Family Medical History: No Reported History Additional Family Medical History / Comment(s): Mother is healthy Father Family Medical History: Diabetes Mellitus General Exam Limitations: no limitations General appearance: alert, in no apparent distress Head exam: Present: atraumatic, normocephalic Eye exam: Present: normal appearance, PERRL ENT exam: Present: normal exam Neck exam: Present: normal inspection. Absent: tenderness, meningismus Respiratory exam: Present: normal lung sounds bilaterally. Absent: respiratory distress Cardiovascular Exam: Present: regular rate, normal rhythm GI/Abdominal exam: Present: soft. Absent: distended, tenderness Extremities exam: Present: normal inspection, normal capillary refill. Absent: pedal edema Neurological exam: Present: alert, oriented X3, CN II-XII intact. Absent: motor sensory deficit Psychiatric exam: Present: normal affect, normal mood Skin exam: Present: warm, dry, intact. Absent: cyanosis, diaphoretic Course Vital Signs 07/15/17 10:10 Temperature 98.4 F Pulse Rate 89 Respiratory 18 Rate Blood Pressure 124/88 O2 Sat by Pulse 98 Oximetry Medical Decision Making - Medical Decision Making 22-year-old female sent in for outpatient lab abnormalities. Laboratory studies are obtained, patient has normal white blood cell count, stable hemoglobin. Venous pH is ascitic at 7.18 with a CO2 of 8. This represents moderate to severe acidosis. She is acetone positive. Blood glucose on BMP is 251. Lactic acid significantly elevated at 8.5. These lab abnormalities may be abnormal secondary to gastrointestinal illness the patient did have several days ago and dehydration with hypoperfusion. Potassium is normal for 0.1. Patient looks well on exam, vital signs are stable. She has no complaints. She is given 3 L total bolus of normal saline. She is started on D5 half normal for her low blood sugar in the setting of DKA. She will be admitted with DKA protocol. Case is discussed with Dr. Ramires due to the significant lab abnormalities, we both feel at this time patient is stable for a monitored bed, no need for ICU at this point. 2 IVs are established in case patient clinically deteriorates. Urinalysis and urine test are pending. diagnosis: DKA, anion gap metabolic acidosis, lactic acidosis - Lab Data Result diagrams: 07/15/17 11:10 07/15/17 11:10 Lab Results 07/15/17 07/15/17 07/15/17 Range/Units 10:37 11:10 11:10 WBC 7.2 (3.8-10.6) k/uL RBC 3.93 (3.80-5.40) m/uL Hgb 12.5 (11.4-16.0) gm/dL Hct 38.2 (34.0-46.0) % MCV 97.2 (80.0-100.0) fL MCH 31.7 (25.0-35.0) pg MCHC 32.6 (31.0-37.0) g/dL RDW 15.1 (11.5-15.5) % Plt Count 561 H (150-450) k/uL Neutrophils % 57 % Lymphocytes % 35 % Monocytes % 4 % Eosinophils % 1 % Basophils % 1 % Neutrophils # 4.1 (1.3-7.7) k/uL Lymphocytes # 2.6 (1.0-4.8) k/uL Monocytes # 0.3 (0-1.0) k/uL Eosinophils # 0.1 (0-0.7) k/uL Basophils # 0.1 (0-0.2) k/uL Poikilocytosis Moderate VBG pH (7.31-7.41) VBG pCO2 (37-51) mmHg VBG HCO3 (24-28) mmol/L Sodium 139 (137-145) mmol/L Potassium 4.1 (3.5-5.1) mmol/L Chloride 101 (98-107) mmol/L Carbon Dioxide 6 L* (22-30) mmol/L Anion Gap 32 mmol/L BUN 20 H (7-17) mg/dL Creatinine 0.47 L (0.52-1.04) mg/dL Est GFR (CKD-EPI)AfAm >90 (>60 ml/min/1.73 sqM) Est GFR (CKD-EPI)NonAf >90 (>60 ml/min/1.73 sqM) Glucose 251 H (74-99) mg/dL POC Glucose (mg/dL) 330 H (75-99) mg/dL POC Glu Raw [employer] Trimmer ID Morgan Esquivel Plasma Lactic Acid Ben (0.7-2.0) mmol/L Calcium 9.2 (8.4-10.2) mg/dL Acetone, Qual Positive (Negative) 07/15/17 07/15/17 Range/Units 11:10 11:10 WBC (3.8-10.6) k/uL RBC (3.80-5.40) m/uL Hgb (11.4-16.0) gm/dL Hct (34.0-46.0) % MCV (80.0-100.0) fL MCH (25.0-35.0) pg MCHC (31.0-37.0) g/dL RDW (11.5-15.5) % Plt Count (150-450) k/uL Neutrophils % % Lymphocytes % % Monocytes % % Eosinophils % % Basophils % % Neutrophils # (1.3-7.7) k/uL Lymphocytes # (1.0-4.8) k/uL Monocytes # (0-1.0) k/uL Eosinophils # (0-0.7) k/uL Basophils # (0-0.2) k/uL Poikilocytosis VBG pH 7.18 L* (7.31-7.41) VBG pCO2 22 L (37-51) mmHg VBG HCO3 8 L* (24-28) mmol/L Sodium (137-145) mmol/L Potassium (3.5-5.1) mmol/L Chloride (98-107) mmol/L Carbon Dioxide (22-30) mmol/L Anion Gap mmol/L BUN (7-17) mg/dL Creatinine (0.52-1.04) mg/dL Est GFR (CKD-EPI)AfAm (>60 ml/min/1.73 sqM) Est GFR (CKD-EPI)NonAf (>60 ml/min/1.73 sqM) Glucose (74-99) mg/dL POC Glucose (mg/dL) (75-99) mg/dL POC Glu Raw [employer] Trimmer ID Plasma Lactic Acid Ben 8.5 H* (0.7-2.0) mmol/L Calcium (8.4-10.2) mg/dL Acetone, Qual (Negative) Critical Care Time Critical Care Time: Yes Total Critical Care Time: 35 Disposition Clinical Impression: DKA (diabetic ketoacidoses), Lactic acid increased Disposition: ADMITTED IP TO THIS HOSP Condition: Serious Is patient prescribed a controlled substance at d/c from ED?: No Referrals: Deborah Stearns MD [Primary Care Provider] - 1-2 days Time of Disposition: 11:59 Decision to Admit Reason: Admit from EC Decision Date: 07/15/17 Decision Time: 11:59
[2017-07-15 11:24] LABS: Basophils # (A) 0.1 k/uL (0-0.2); Basophils % (A) 1 %; Eosinophils # (A) 0.1 k/uL (0-0.7); Eosinophils % (A) 1 %; HCT 38.2 % (34.0-46.0); HGB 12.5 gm/dL (11.4-16.0); Lymphocytes # (A) 2.6 k/uL (1.0-4.8); Lymphocytes % (A) 35 %; MCH 31.7 pg (25.0-35.0); MCHC 32.6 g/dL (31.0-37.0); MCV 97.2 fL (80.0-100.0); Mean Platelet Volume 6.6; Monocytes # (A) 0.3 k/uL (0-1.0); Monocytes % (A) 4 %; Neutrophils # (A) 4.1 k/uL (1.3-7.7); Neutrophils % (A) 57 %; Platelet Count 561 k/uL (150-450); Poikilocytosis Moderate; RBC 3.93 m/uL (3.80-5.40); RDW 15.1 % (11.5-15.5); WBC 7.2 k/uL (3.8-10.6)
[2017-07-15 11:29] LABS: VBG PH 7.18 (7.31-7.41)
[2017-07-15 11:38] LABS: Anion Gap 32 mmol/L; Blood Urea Nitrogen 20 mg/dL (7-17); Calcium 9.2 mg/dL (8.4-10.2); Chloride 101 mmol/L (98-107); Glucose 251 mg/dL (74-99); Potassium 4.1 mmol/L (3.5-5.1); Sodium 139 mmol/L (137-145)
[2017-07-15 11:50] LABS: Carbon Dioxide 6 mmol/L (22-30)
[2017-07-15 12:36] LABS: Glucose,Whole Blood 179 mg/dL (75-99)
[2017-07-15 13:34] LABS: Glucose,Whole Blood 269 mg/dL (75-99)
[2017-07-15] MEDS: D5-0.45% NACL WITH KCL 20MEQ/L 1,000 ML IV SCH ×2 (14:24→21:43)
[2017-07-15] MEDS: INSULIN REGULAR 100 UNIT in SODIUM CHLORIDE 0.9% 100 ML IV SCH (14:27)
[2017-07-15 14:42] LABS: Appearance,Urine Clear (Clear); Bilirubin,Urine Negative (Negative); Blood,Urine Negative (Negative); Color,Urine Light Yellow; Glucose,Urine (UA) 4+ (Negative); Leukocyte Esterase,Urine Moderate (Negative); Mucus,Urine Rare /hpf; Nitrite,Urine Negative (Negative); PH, Urine 5.5 (5.0-8.0); Protein,Urine 1+ (Negative); RBC,Urine 1 /hpf (0-5); Squamous Epithelial Cell,Urine 1 /hpf (0-4); Urobilinogen,Urine <2.0 mg/dL (<2.0); WBC,Urine 3 /hpf (0-5)
[2017-07-15 14:43] LABS: Ketones,Urine 4+ (Negative)
[2017-07-15 15:31] LABS: Anion Gap 27 mmol/L; Blood Urea Nitrogen 14 mg/dL (7-17); Chloride 107 mmol/L (98-107); Glucose 306 mg/dL (74-99); Potassium 3.2 mmol/L (3.5-5.1); Sodium 140 mmol/L (137-145)
[2017-07-15 15:41] LABS: Glucose,Whole Blood 263 mg/dL (75-99)
[2017-07-15] MEDS: SODIUM CHLORIDE 0.9% 1,000 ML IV SCH ×3 (15:41→22:29)
[2017-07-15 15:42] LABS: Carbon Dioxide 6 mmol/L (22-30)
[2017-07-15 16:50] LABS: Glucose,Whole Blood 149 mg/dL (75-99)
[2017-07-15 17:48] LABS: Glucose,Whole Blood 122 mg/dL (75-99)
--- NOTE | 2017-07-15 18:17 | P.HPIM ---
History of Present Illness 22-year-old pleasant female was sent in here by the em physician because of DKA. She and had a highly elevated anion gap of 32 when she came and patient was started on DKA protocol on IV insulin patient blood sugars have come down now patient is on D5 half-normal with IV insulin. Patient has anion gap of around 27 and bicarbonate of around 6. Patient did not miss any of her doses of insulin patient takes 15 units of Lantus and the pre-meal insulin which is pretty much carb counting. Patient was dealing with gastroenteritis for more than a week which resolved about 4 days ago which may have precipitated her diabetic ketoacidosis. Patient doesn't have any other signs or symptoms of sepsis or infection at this time. Review of Systems REVIEW OF SYSTEMS: CONSTITUTIONAL: No fever, no malaise, no fatigue. HEENT: No recent visual problems or hearing problems. Denied any sore throat. CARDIOVASCULAR: No chest pain, orthopnea, PND, no palpitations, no syncope. PULMONARY: No shortness of breath, no cough, no hemoptysis. GASTROINTESTINAL: No diarrhea, no nausea, no vomiting, no abdominal pain. Normoactive bowel sounds. NEUROLOGICAL: No headaches, no weakness, no numbness. HEMATOLOGICAL: Denies any bleeding or petechiae. GENITOURINARY: Denies any burning micturition, frequency, or urgency. MUSCULOSKELETAL/RHEUMATOLOGICAL: Denies any joint pain, swelling, or any muscle pain. ENDOCRINE: Denies any polyuria or polydipsia. The rest of the 14-point review of systems is negative. Past Medical History Past Medical History: Asthma, Diabetes Mellitus, GERD/Reflux, Syncope Additional Past Medical History / Comment(s): Pt recently admitted to [facility] on with DKA and elevated lactic acid, transaminitis, metabolic acidosis, glycogenic hepatology-she transferred to [facility] where she states they also diagnosed her with gastroparesis. Other Hx: Recent GI illness, recent UTI and completed antibiotic, IDDM type I, DKAs, syncope pt thinks related to hypoglycemia, back pain-bulging disc, L sided sciatica, ovarian cyst. History of Any Multi-Drug Resistant Organisms: MRSA Date of last positivie culture/infection: 03/2014 MDRO Source:: GROIN AREA Past Surgical History: Cholecystectomy Past Anesthesia/Blood Transfusion Reactions: No Reported Reaction Smoking Status: Light tobacco smoker - Past Family History Mother History Unknown: Yes Family Medical History: No Reported History Additional Family Medical History / Comment(s): Mother is healthy Father Family Medical History: Diabetes Mellitus Additional Family Medical History / Comment(s): Diabetes type II. Medications and Allergies Home Medications Medication Instructions Recorded Confirmed Type Insulin Aspart [NovoLOG See Protocol SQ ACHS 12/03/16 07/15/17 History (formulary)] Insulin Glargine [Lantus] 15 units SQ HS 02/21/17 07/15/17 History Cholecalciferol [Vitamin D3] 1,000 unit PO DAILY 07/15/17 07/15/17 History Allergies Allergy/AdvReac Type Severity Reaction Status Date / Time Sulfa (Sulfonamide AdvReac Nausea & Verified 07/15/17 10:53 Antibiotics) Vomiting sulfamethoxazole AdvReac Nausea & Verified 07/15/17 10:53 [From Bactrim] Vomiting trimethoprim [From Bactrim] AdvReac Nausea & Verified 07/15/17 10:53 Vomiting Physical Exam Vitals: Vital Signs Temp Pulse Pulse Resp BP BP Pulse Ox 07/15/17 15:45 99.4 F 97 18 110/64 98 07/15/17 14:30 98.7 F 102 H 16 108/59 99 07/15/17 10:10 98.4 F 89 18 124/88 98 Intake and Output 07/15/17 07/15/17 07/15/17 06:59 14:59 22:59 Intake Total 10.018 Balance 10.018 Intake: Intake, IV Titration 10.018 Amount Insulin Regular 100 unit 10.018 In Sodium Chloride 0.9% 100 ml @ 0.05 UNITS/KG/HR 3.13 mls/hr IV .Q24H [facility] Rx#:[id number] Other: Weight 62.142 kg PHYSICAL EXAMINATION: GENERAL: The patient is alert and oriented x3, not in any acute distress. Well developed, well nourished. HEENT: Pupils are round and equally reacting to light. EOMI. No scleral icterus. No conjunctival pallor. Normocephalic, atraumatic. No pharyngeal erythema. No thyromegaly. CARDIOVASCULAR: S1 and S2 present. No murmurs, rubs, or gallops. PULMONARY: Chest is clear to auscultation, no wheezing or crackles. ABDOMEN: Soft, nontender, nondistended, normoactive bowel sounds. No palpable organomegaly. MUSCULOSKELETAL: No joint swelling or deformity. EXTREMITIES: No cyanosis, clubbing, or pedal edema. NEUROLOGICAL: Gross neurological examination did not reveal any focal deficits. SKIN: No rashes. Results CBC & Chem 7: 07/15/17 11:10 07/15/17 15:10 Labs: Abnormal Lab Results - Last 24 Hours (Table) 07/15/17 07/15/17 07/15/17 Range/Units 10:37 11:10 11:10 Plt Count 561 H (150-450) k/uL VBG pH (7.31-7.41) VBG pCO2 (37-51) mmHg VBG HCO3 (24-28) mmol/L Potassium (3.5-5.1) mmol/L Carbon Dioxide 6 L* (22-30) mmol/L BUN 20 H (7-17) mg/dL Creatinine 0.47 L (0.52-1.04) mg/dL Glucose 251 H (74-99) mg/dL POC Glucose (mg/dL) 330 H (75-99) mg/dL Plasma Lactic Acid Ben (0.7-2.0) mmol/L Urine Protein (Negative) Urine Glucose (UA) (Negative) Urine Ketones (Negative) Ur Leukocyte Esterase (Negative) Urine Mucus (None) /hpf 07/15/17 07/15/17 07/15/17 Range/Units 11:10 11:10 12:13 Plt Count (150-450) k/uL VBG pH 7.18 L* (7.31-7.41) VBG pCO2 22 L (37-51) mmHg VBG HCO3 8 L* (24-28) mmol/L Potassium (3.5-5.1) mmol/L Carbon Dioxide (22-30) mmol/L BUN (7-17) mg/dL Creatinine (0.52-1.04) mg/dL Glucose (74-99) mg/dL POC Glucose (mg/dL) 179 H (75-99) mg/dL Plasma Lactic Acid Ben 8.5 H* (0.7-2.0) mmol/L Urine Protein (Negative) Urine Glucose (UA) (Negative) Urine Ketones (Negative) Ur Leukocyte Esterase (Negative) Urine Mucus (None) /hpf 07/15/17 07/15/17 07/15/17 Range/Units 13:33 14:30 15:10 Plt Count (150-450) k/uL VBG pH (7.31-7.41) VBG pCO2 (37-51) mmHg VBG HCO3 (24-28) mmol/L Potassium 3.2 L (3.5-5.1) mmol/L Carbon Dioxide 6 L* (22-30) mmol/L BUN (7-17) mg/dL Creatinine 0.40 L (0.52-1.04) mg/dL Glucose 306 H (74-99) mg/dL POC Glucose (mg/dL) 269 H (75-99) mg/dL Plasma Lactic Acid Ben (0.7-2.0) mmol/L Urine Protein 1+ H (Negative) Urine Glucose (UA) 4+ H (Negative) Urine Ketones 4+ H (Negative) Ur Leukocyte Esterase Moderate H (Negative) Urine Mucus Rare H (None) /[facility] 07/15/17 07/15/17 07/15/17 Range/Units 15:10 15:39 16:45 Plt Count (150-450) k/uL VBG pH (7.31-7.41) VBG pCO2 (37-51) mmHg VBG HCO3 (24-28) mmol/L Potassium (3.5-5.1) mmol/L Carbon Dioxide (22-30) mmol/L BUN (7-17) mg/dL Creatinine (0.52-1.04) mg/dL Glucose (74-99) mg/dL POC Glucose (mg/dL) 263 H 149 H (75-99) mg/dL Plasma Lactic Acid Ben 2.7 H* (0.7-2.0) mmol/L Urine Protein (Negative) Urine Glucose (UA) (Negative) Urine Ketones (Negative) Ur Leukocyte Esterase (Negative) Urine Mucus (None) /[facility] 07/15/17 Range/Units 17:27 Plt Count (150-450) k/uL VBG pH (7.31-7.41) VBG pCO2 (37-51) mmHg VBG HCO3 (24-28) mmol/L Potassium (3.5-5.1) mmol/L Carbon Dioxide (22-30) mmol/L BUN (7-17) mg/dL Creatinine (0.52-1.04) mg/dL Glucose (74-99) mg/dL POC Glucose (mg/dL) 122 H (75-99) mg/dL Plasma Lactic Acid Ben (0.7-2.0) mmol/L Urine Protein (Negative) Urine Glucose (UA) (Negative) Urine Ketones (Negative) Ur Leukocyte Esterase (Negative) Urine Mucus (None) /hpf Thrombosis Risk Factor Assmnt - Choose All That Apply Any of the Below Risk Factors Present?: No Other Risk Factors: No Other congenital or acquired thrombophilia - If yes, enter type in comment: No Thrombosis Risk Factor Assessment Level: Very Low Risk Assessment and Plan Plan: -Diabetic acidosis and anion gap metabolic acidosis: Patient will be in DKA protocol once her anion gap resolved patient will be switched to subcutaneous insulin, patient will be made nothing by mouth until then. After be switched to subcutaneous insulin patient will be started on normal saline IV insulin will be discontinued. -Recent viral gastroenteritis which resolved now. -Lactic acidosis secondary to intravascular volume depletion dehydration. Expected to improve with the IV fluids -Diabetes mellitus type 1 -Hypokalemia potassium was supplemented secondary to IV insulin. Asthma without any acute exacerbation Gastroesophageal reflux disease.
[2017-07-15 18:37] LABS: Glucose,Whole Blood 122 mg/dL (75-99)
[2017-07-15 19:11] LABS: HCT 32.5 % (34.0-46.0); HGB 10.6 gm/dL (11.4-16.0); Hypochromasia Marked; MCH 31.7 pg (25.0-35.0); MCHC 32.5 g/dL (31.0-37.0); MCV 97.4 fL (80.0-100.0); Mean Platelet Volume 6.8; Platelet Count 424 k/uL (150-450); Poikilocytosis Moderate; RBC 3.33 m/uL (3.80-5.40); RDW 15.3 % (11.5-15.5); WBC 6.7 k/uL (3.8-10.6)
[2017-07-15 19:19] LABS: Anion Gap 17 mmol/L; Blood Urea Nitrogen 11 mg/dL (7-17); Calcium 8.1 mg/dL (8.4-10.2); Carbon Dioxide 15 mmol/L (22-30); Chloride 107 mmol/L (98-107); Glucose 118 mg/dL (74-99); Potassium 4.2 mmol/L (3.5-5.1); Sodium 139 mmol/L (137-145)
[2017-07-15 19:40] LABS: Glucose,Whole Blood 143 mg/dL (75-99)
[2017-07-15 20:27] LABS: Glucose,Whole Blood 330 mg/dL (75-99)
[2017-07-15 21:24] LABS: Glucose,Whole Blood 294 mg/dL (75-99)
[2017-07-15] MEDS: PANTOPRAZOLE 40 MG/10 ML VIAL IVP SCH (21:43)
[2017-07-15 22:29] LABS: Glucose,Whole Blood 172 mg/dL (75-99)
[2017-07-15 23:52] LABS: Glucose,Whole Blood 97 mg/dL (75-99)
[2017-07-16 00:28] LABS: Glucose,Whole Blood 88 mg/dL (75-99)
[2017-07-16 00:43] LABS: Anion Gap 15 mmol/L; Blood Urea Nitrogen 10 mg/dL (7-17); Calcium 8.3 mg/dL (8.4-10.2); Carbon Dioxide 16 mmol/L (22-30); Chloride 108 mmol/L (98-107); Glucose 85 mg/dL (74-99); Potassium 3.9 mmol/L (3.5-5.1); Sodium 139 mmol/L (137-145)
[2017-07-16 00:58] LABS: Glucose,Whole Blood 93 mg/dL (75-99)
[2017-07-16 01:29] LABS: Glucose,Whole Blood 152 mg/dL (75-99)
[2017-07-16 02:36] LABS: Glucose,Whole Blood 198 mg/dL (75-99)
[2017-07-16 03:36] LABS: Glucose,Whole Blood 144 mg/dL (75-99)
[2017-07-16 04:20] LABS: HCT 31.9 % (34.0-46.0); HGB 10.1 gm/dL (11.4-16.0); Hypochromasia Slight; MCH 31.3 pg (25.0-35.0); MCHC 31.7 g/dL (31.0-37.0); Macrocytosis Slight; Mean Platelet Volume 6.4; Platelet Count 405 k/uL (150-450); Poikilocytosis Moderate; RBC 3.23 m/uL (3.80-5.40); RDW 15.1 % (11.5-15.5); WBC 5.8 k/uL (3.8-10.6)
[2017-07-16 04:37] LABS: Anion Gap 17 mmol/L; Blood Urea Nitrogen 9 mg/dL (7-17); Calcium 8.2 mg/dL (8.4-10.2); Carbon Dioxide 14 mmol/L (22-30); Chloride 107 mmol/L (98-107); Glucose 124 mg/dL (74-99); Sodium 138 mmol/L (137-145)
[2017-07-16 04:39] LABS: Glucose,Whole Blood 117 mg/dL (75-99)
[2017-07-16] MEDS: D5-0.45% NACL WITH KCL 20MEQ/L 1,000 ML IV SCH ×4 (04:39→21:50)
[2017-07-16] MEDS: SODIUM CHLORIDE 0.9% 1,000 ML IV SCH ×3 (04:41→17:55)
[2017-07-16 05:31] LABS: Glucose,Whole Blood 160 mg/dL (75-99)
[2017-07-16 06:25] LABS: Glucose,Whole Blood 335 mg/dL (75-99)
[2017-07-16 07:05] LABS: HCT 33.5 % (34.0-46.0); HGB 10.5 gm/dL (11.4-16.0); MCH 30.6 pg (25.0-35.0); MCHC 31.4 g/dL (31.0-37.0); MCV 97.3 fL (80.0-100.0); Mean Platelet Volume 7.4; Platelet Count 449 k/uL (150-450); Poikilocytosis Moderate; RBC 3.45 m/uL (3.80-5.40); WBC 5.1 k/uL (3.8-10.6)
[2017-07-16 07:35] LABS: Anion Gap 13 mmol/L; Blood Urea Nitrogen 11 mg/dL (7-17); Calcium 8.1 mg/dL (8.4-10.2); Carbon Dioxide 18 mmol/L (22-30); Chloride 107 mmol/L (98-107); Glucose 300 mg/dL (74-99); Potassium 4.4 mmol/L (3.5-5.1); Sodium 138 mmol/L (137-145)
[2017-07-16] MEDS: PANTOPRAZOLE 40 MG/10 ML VIAL IVP SCH (08:06)
[2017-07-16 08:16] LABS: Glucose,Whole Blood 252 mg/dL (75-99)
[2017-07-16 09:27] LABS: Glucose,Whole Blood 198 mg/dL (75-99)
[2017-07-16 10:12] LABS: Glucose,Whole Blood 141 mg/dL (75-99)
[2017-07-16] MEDS: INSULIN REGULAR 100 UNIT in SODIUM CHLORIDE 0.9% 100 ML IV SCH ×2 (10:12→20:24)
[2017-07-16 10:34] LABS: Anion Gap 16 mmol/L; Blood Urea Nitrogen 12 mg/dL (7-17); Calcium 8.1 mg/dL (8.4-10.2); Carbon Dioxide 14 mmol/L (22-30); Chloride 110 mmol/L (98-107); Glucose 146 mg/dL (74-99); Potassium 4.3 mmol/L (3.5-5.1); Sodium 140 mmol/L (137-145)
[2017-07-16 11:17] LABS: Glucose,Whole Blood 148 mg/dL (75-99)
[2017-07-16 12:11] LABS: Glucose,Whole Blood 182 mg/dL (75-99)
--- NOTE | 2017-07-16 12:12 | P.PN ---
Subjective Patient was admitted for DKA patient still has anion gap of 16. Was anion gap resolved patient will be switched to subcutaneous insulin. Constitutional: Denied any fatigue denied any fever. Cardio vascular: denied any chest pain, palpitations Gastrointestinal denied any nausea vomiting Pulmonary: Denied any shortness of breath cough Neurologic denied any new focal deficits Objective - Vital Signs Vital signs: Vital Signs Temp 98.0 F 07/16/17 11:28 Pulse 82 07/16/17 11:28 Resp 18 07/16/17 11:28 BP 122/86 07/16/17 11:28 Pulse Ox 99 07/16/17 11:28 Intake & Output 07/15/17 07/16/17 07/16/17 18:59 06:59 18:59 Intake Total 10.985 2234.738 4.821 Balance 10.985 2234.738 4.821 Weight 62.142 kg 62.142 kg Intake: IV 2224 D5-0.45% NaCl with KCl 1200 20Meq/l 1,000 ml @ 150 mls/hr IV .Q6H40M [facility] Rx# :[id number] Insulin Regular 100 unit 24 In Sodium Chloride 0.9% 100 ml @ 0.05 UNITS/KG/HR 3.13 mls/hr IV .Q24H [facility] Rx#:[id number] Sodium Chloride 0.9% 1, 1000 000 ml @ 999 mls/hr IV . Q1H1M [facility] Rx#:[id number] Intake, IV Titration 10.985 10.738 4.821 Amount Insulin Regular 100 unit 10.985 10.738 4.821 In Sodium Chloride 0.9% 100 ml @ 0.05 UNITS/KG/HR 3.13 mls/hr IV .Q24H [facility] Rx#:[id number] Other: Voiding Method Toilet # Voids 2 - Exam PHYSICAL EXAMINATION: GENERAL: The patient is alert and oriented x3, not in any acute distress. Well developed, well nourished. HEENT: Pupils are round and equally reacting to light. EOMI. No scleral icterus. No conjunctival pallor. Normocephalic, atraumatic. No pharyngeal erythema. No thyromegaly. CARDIOVASCULAR: S1 and S2 present. No murmurs, rubs, or gallops. PULMONARY: Chest is clear to auscultation, no wheezing or crackles. ABDOMEN: Soft, nontender, nondistended, normoactive bowel sounds. No palpable organomegaly. MUSCULOSKELETAL: No joint swelling or deformity. EXTREMITIES: No cyanosis, clubbing, or pedal edema. NEUROLOGICAL: Gross neurological examination did not reveal any focal deficits. SKIN: No rashes. - Labs CBC & Chem 7: 07/16/17 06:16 07/16/17 09:45 Labs: Abnormal Lab Results - Last 24 Hours (Table) 07/15/17 07/15/17 07/15/17 Range/Units 12:13 13:33 14:30 RBC (3.80-5.40) m/uL Hgb (11.4-16.0) gm/dL Hct (34.0-46.0) % Potassium (3.5-5.1) mmol/L Chloride (98-107) mmol/L Carbon Dioxide (22-30) mmol/L Creatinine (0.52-1.04) mg/dL Glucose (74-99) mg/dL POC Glucose (mg/dL) 179 H 269 H (75-99) mg/dL Plasma Lactic Acid Ben (0.7-2.0) mmol/L Calcium (8.4-10.2) mg/dL Urine Protein 1+ H (Negative) Urine Glucose (UA) 4+ H (Negative) Urine Ketones 4+ H (Negative) Ur Leukocyte Esterase Moderate H (Negative) Urine Mucus Rare H (None) /hpf 07/15/17 07/15/17 07/15/17 Range/Units 15:10 15:10 15:39 RBC (3.80-5.40) m/uL Hgb (11.4-16.0) gm/dL Hct (34.0-46.0) % Potassium 3.2 L (3.5-5.1) mmol/L Chloride (98-107) mmol/L Carbon Dioxide 6 L* (22-30) mmol/L Creatinine 0.40 L (0.52-1.04) mg/dL Glucose 306 H (74-99) mg/dL POC Glucose (mg/dL) 263 H (75-99) mg/dL Plasma Lactic Acid Ben 2.7 H* (0.7-2.0) mmol/L Calcium (8.4-10.2) mg/dL Urine Protein (Negative) Urine Glucose (UA) (Negative) Urine Ketones (Negative) Ur Leukocyte Esterase (Negative) Urine Mucus (None) /[facility] 07/15/17 07/15/17 07/15/17 Range/Units 16:45 17:27 18:24 RBC (3.80-5.40) m/uL Hgb (11.4-16.0) gm/dL Hct (34.0-46.0) % Potassium (3.5-5.1) mmol/L Chloride (98-107) mmol/L Carbon Dioxide (22-30) mmol/L Creatinine (0.52-1.04) mg/dL Glucose (74-99) mg/dL POC Glucose (mg/dL) 149 H 122 H 122 H (75-99) mg/dL Plasma Lactic Acid Ben (0.7-2.0) mmol/L Calcium (8.4-10.2) mg/dL Urine Protein (Negative) Urine Glucose (UA) (Negative) Urine Ketones (Negative) Ur Leukocyte Esterase (Negative) Urine Mucus (None) /[facility] 07/15/17 07/15/17 07/15/17 Range/Units 18:59 18:59 18:59 RBC 3.33 L (3.80-5.40) m/uL Hgb 10.6 L (11.4-16.0) gm/dL Hct 32.5 L (34.0-46.0) % Potassium (3.5-5.1) mmol/L Chloride (98-107) mmol/L Carbon Dioxide 15 L (22-30) mmol/L Creatinine 0.40 L (0.52-1.04) mg/dL Glucose 118 H (74-99) mg/dL POC Glucose (mg/dL) (75-99) mg/dL Plasma Lactic Acid Ben 4.6 H* (0.7-2.0) mmol/L Calcium 8.1 L (8.4-10.2) mg/dL Urine Protein (Negative) Urine Glucose (UA) (Negative) Urine Ketones (Negative) Ur Leukocyte Esterase (Negative) Urine Mucus (None) /[facility] 07/15/17 07/15/17 07/15/17 Range/Units 19:14 20:23 21:21 RBC (3.80-5.40) m/uL Hgb (11.4-16.0) gm/dL Hct (34.0-46.0) % Potassium (3.5-5.1) mmol/L Chloride (98-107) mmol/L Carbon Dioxide (22-30) mmol/L Creatinine (0.52-1.04) mg/dL Glucose (74-99) mg/dL POC Glucose (mg/dL) 143 H 330 H 294 H (75-99) mg/dL Plasma Lactic Acid Ben (0.7-2.0) mmol/L Calcium (8.4-10.2) mg/dL Urine Protein (Negative) Urine Glucose (UA) (Negative) Urine Ketones (Negative) Ur Leukocyte Esterase (Negative) Urine Mucus (None) /hpf 07/15/17 07/15/17 07/16/17 Range/Units 22:27 22:31 00:18 RBC (3.80-5.40) m/uL Hgb (11.4-16.0) gm/dL Hct (34.0-46.0) % Potassium (3.5-5.1) mmol/L Chloride 108 H (98-107) mmol/L Carbon Dioxide 16 L (22-30) mmol/L Creatinine 0.40 L (0.52-1.04) mg/dL Glucose (74-99) mg/dL POC Glucose (mg/dL) 172 H (75-99) mg/dL Plasma Lactic Acid Ben 8.2 H* (0.7-2.0) mmol/L Calcium 8.3 L (8.4-10.2) mg/dL Urine Protein (Negative) Urine Glucose (UA) (Negative) Urine Ketones (Negative) Ur Leukocyte Esterase (Negative) Urine Mucus (None) /hpf 07/16/17 07/16/17 07/16/17 Range/Units 01:28 02:28 02:34 RBC (3.80-5.40) m/uL Hgb (11.4-16.0) gm/dL Hct (34.0-46.0) % Potassium (3.5-5.1) mmol/L Chloride (98-107) mmol/L Carbon Dioxide (22-30) mmol/L Creatinine (0.52-1.04) mg/dL Glucose (74-99) mg/dL POC Glucose (mg/dL) 152 H 198 H (75-99) mg/dL Plasma Lactic Acid Ben 2.4 H* (0.7-2.0) mmol/L Calcium (8.4-10.2) mg/dL Urine Protein (Negative) Urine Glucose (UA) (Negative) Urine Ketones (Negative) Ur Leukocyte Esterase (Negative) Urine Mucus (None) /[facility] 07/16/17 07/16/17 07/16/17 Range/Units 03:34 03:59 03:59 RBC 3.23 L (3.80-5.40) m/uL Hgb 10.1 L (11.4-16.0) gm/dL Hct 31.9 L (34.0-46.0) % Potassium (3.5-5.1) mmol/L Chloride (98-107) mmol/L Carbon Dioxide 14 L (22-30) mmol/L Creatinine (0.52-1.04) mg/dL Glucose 124 H (74-99) mg/dL POC Glucose (mg/dL) 144 H (75-99) mg/dL Plasma Lactic Acid Ben (0.7-2.0) mmol/L Calcium 8.2 L (8.4-10.2) mg/dL Urine Protein (Negative) Urine Glucose (UA) (Negative) Urine Ketones (Negative) Ur Leukocyte Esterase (Negative) Urine Mucus (None) /[facility] 07/16/17 07/16/17 07/16/17 Range/Units 04:35 05:26 06:16 RBC (3.80-5.40) m/uL Hgb (11.4-16.0) gm/dL Hct (34.0-46.0) % Potassium (3.5-5.1) mmol/L Chloride (98-107) mmol/L Carbon Dioxide 18 L (22-30) mmol/L Creatinine (0.52-1.04) mg/dL Glucose 300 H (74-99) mg/dL POC Glucose (mg/dL) 117 H 160 H (75-99) mg/dL Plasma Lactic Acid Ben (0.7-2.0) mmol/L Calcium 8.1 L (8.4-10.2) mg/dL Urine Protein (Negative) Urine Glucose (UA) (Negative) Urine Ketones (Negative) Ur Leukocyte Esterase (Negative) Urine Mucus (None) /[facility] 07/16/17 07/16/17 07/16/17 Range/Units 06:16 06:23 08:13 RBC 3.45 L (3.80-5.40) m/uL Hgb 10.5 L (11.4-16.0) gm/dL Hct 33.5 L (34.0-46.0) % Potassium (3.5-5.1) mmol/L Chloride (98-107) mmol/L Carbon Dioxide (22-30) mmol/L Creatinine (0.52-1.04) mg/dL Glucose (74-99) mg/dL POC Glucose (mg/dL) 335 H 252 H (75-99) mg/dL Plasma Lactic Acid Ben (0.7-2.0) mmol/L Calcium (8.4-10.2) mg/dL Urine Protein (Negative) Urine Glucose (UA) (Negative) Urine Ketones (Negative) Ur Leukocyte Esterase (Negative) Urine Mucus (None) /[facility] 07/16/17 07/16/17 07/16/17 Range/Units 09:23 09:45 10:10 RBC (3.80-5.40) m/uL Hgb (11.4-16.0) gm/dL Hct (34.0-46.0) % Potassium (3.5-5.1) mmol/L Chloride 110 H (98-107) mmol/L Carbon Dioxide 14 L (22-30) mmol/L Creatinine 0.44 L (0.52-1.04) mg/dL Glucose 146 H (74-99) mg/dL POC Glucose (mg/dL) 198 H 141 H (75-99) mg/dL Plasma Lactic Acid Ben (0.7-2.0) mmol/L Calcium 8.1 L (8.4-10.2) mg/dL Urine Protein (Negative) Urine Glucose (UA) (Negative) Urine Ketones (Negative) Ur Leukocyte Esterase (Negative) Urine Mucus (None) /[facility] 07/16/17 07/16/17 Range/Units 11:10 12:10 RBC (3.80-5.40) m/uL Hgb (11.4-16.0) gm/dL Hct (34.0-46.0) % Potassium (3.5-5.1) mmol/L Chloride (98-107) mmol/L Carbon Dioxide (22-30) mmol/L Creatinine (0.52-1.04) mg/dL Glucose (74-99) mg/dL POC Glucose (mg/dL) 148 H 182 H (75-99) mg/dL Plasma Lactic Acid Ben (0.7-2.0) mmol/L Calcium (8.4-10.2) mg/dL Urine Protein (Negative) Urine Glucose (UA) (Negative) Urine Ketones (Negative) Ur Leukocyte Esterase (Negative) Urine Mucus (None) /hpf Assessment and Plan Plan: -Diabetic acidosis and anion gap metabolic acidosis: Patient will be in DKA protocol once her anion gap resolved patient will be switched to subcutaneous insulin, patient will be made nothing by mouth until then. After be switched to subcutaneous insulin patient will be started on normal saline IV insulin will be discontinued. -Recent viral gastroenteritis which resolved now. -Lactic acidosis secondary to intravascular volume depletion dehydration. Expected to improve with the IV fluids -Diabetes mellitus type 1 -Hypokalemia potassium was supplemented secondary to IV insulin. Asthma without any acute exacerbation Gastroesophageal reflux disease.
[2017-07-16 13:24] LABS: Glucose,Whole Blood 114 mg/dL (75-99)
[2017-07-16 14:34] LABS: ALT 172 U/L (9-52); AST 328 U/L (14-36); Albumin 3.2 g/dL (3.5-5.0); Alkaline Phosphatase 450 U/L (38-126); Anion Gap 15 mmol/L; Blood Urea Nitrogen 10 mg/dL (7-17); Calcium 8.7 mg/dL (8.4-10.2); Carbon Dioxide 18 mmol/L (22-30); Chloride 106 mmol/L (98-107); Glucose 146 mg/dL (74-99); Phosphorus 3.7 mg/dL (2.5-4.5); Potassium 4.6 mmol/L (3.5-5.1); Sodium 139 mmol/L (137-145); Total Bilirubin 0.3 mg/dL (0.2-1.3); Total Protein 5.3 g/dL (6.3-8.2)
[2017-07-16 14:37] LABS: Glucose,Whole Blood 201 mg/dL (75-99)
[2017-07-16 15:01] VITALS: BMI 22.8
[2017-07-16 15:11] LABS: Glucose,Whole Blood 337 mg/dL (75-99)
[2017-07-16 17:05] LABS: Glucose,Whole Blood 219 mg/dL (75-99)
[2017-07-16 17:44] LABS: Glucose,Whole Blood 163 mg/dL (75-99)
[2017-07-16 18:38] LABS: Glucose,Whole Blood 146 mg/dL (75-99)
[2017-07-16 19:17] LABS: Glucose,Whole Blood 138 mg/dL (75-99)
[2017-07-16 19:55] LABS: Anion Gap 16 mmol/L; Blood Urea Nitrogen 9 mg/dL (7-17); Calcium 8.9 mg/dL (8.4-10.2); Carbon Dioxide 16 mmol/L (22-30); Chloride 105 mmol/L (98-107); Glucose 126 mg/dL (74-99); Phosphorus 3.4 mg/dL (2.5-4.5); Potassium 4.5 mmol/L (3.5-5.1); Sodium 137 mmol/L (137-145)
[2017-07-16 20:19] LABS: Glucose,Whole Blood 262 mg/dL (75-99)
[2017-07-16 21:05] LABS: Glucose,Whole Blood 272 mg/dL (75-99)
[2017-07-16 22:28] LABS: Glucose,Whole Blood 180 mg/dL (75-99)
[2017-07-16 23:25] LABS: Glucose,Whole Blood 114 mg/dL (75-99)
[2017-07-16 23:28] LABS: Anion Gap 20 mmol/L; Calcium 9.1 mg/dL (8.4-10.2); Carbon Dioxide 13 mmol/L (22-30); Chloride 106 mmol/L (98-107); Glucose 129 mg/dL (74-99); Sodium 139 mmol/L (137-145)
[2017-07-16 23:36] LABS: Blood Urea Nitrogen 10 mg/dL (7-17); Potassium 4.5 mmol/L (3.5-5.1)
[2017-07-16 23:37] LABS: Phosphorus 3.4 mg/dL (2.5-4.5)
[2017-07-17 00:25] LABS: Glucose,Whole Blood 97 mg/dL (75-99)
[2017-07-17 01:20] LABS: Glucose,Whole Blood 97 mg/dL (75-99)
[2017-07-17 01:52] LABS: Glucose,Whole Blood 158 mg/dL (75-99)
[2017-07-17 03:03] LABS: Glucose,Whole Blood 150 mg/dL (75-99)
[2017-07-17 04:26] LABS: Anion Gap 13 mmol/L; Blood Urea Nitrogen 11 mg/dL (7-17); Calcium 8.7 mg/dL (8.4-10.2); Carbon Dioxide 20 mmol/L (22-30); Chloride 106 mmol/L (98-107); Glucose 172 mg/dL (74-99); Phosphorus 4.6 mg/dL (2.5-4.5); Potassium 4.4 mmol/L (3.5-5.1); Sodium 139 mmol/L (137-145)
[2017-07-17 04:41] LABS: Glucose,Whole Blood 214 mg/dL (75-99)
[2017-07-17 06:04] LABS: Glucose,Whole Blood 349 mg/dL (75-99)
[2017-07-17] MEDS: SODIUM CHLORIDE 0.9% 1,000 ML IV SCH ×4 (06:16→14:46)
[2017-07-17] MEDS: D5-0.45% NACL WITH KCL 20MEQ/L 1,000 ML IV SCH ×2 (06:18→13:37)
[2017-07-17 06:50] LABS: Glucose,Whole Blood 393 mg/dL (75-99)
[2017-07-17 07:04] LABS: Anion Gap 13 mmol/L; Calcium 8.1 mg/dL (8.4-10.2); Carbon Dioxide 19 mmol/L (22-30); Chloride 106 mmol/L (98-107); Glucose 357 mg/dL (74-99); Sodium 138 mmol/L (137-145)
[2017-07-17 07:15] LABS: Blood Urea Nitrogen 16 mg/dL (7-17); Potassium 4.8 mmol/L (3.5-5.1)
[2017-07-17 07:16] LABS: Phosphorus 4.6 mg/dL (2.5-4.5)
[2017-07-17 08:23] LABS: Glucose,Whole Blood 348 mg/dL (75-99)
[2017-07-17 09:15] LABS: Glucose,Whole Blood 306 mg/dL (75-99)
--- NOTE | 2017-07-17 09:58 | P.CONS ---
History of Present Illness - Reason for Consult Consult date: 07/17/17 Glycogen hepatopathy Requesting physician: Soren E Sheet - History of Present Illness 22-year-old female well-known to the GI service who has been evaluated multiple times over the last several months in regards to transaminitis. Admitted with DKA. She has a history of type 1 diabetes mellitus poorly controlled and has been experiencing moderate to severe elevation of her transaminases for several months. 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 Last month she was hospitalized with another episode of DKA elevated liver enzymes and transferred to [facility] for further evaluation. Patient states that she was evaluated for glycogen hepatopathy secondary to poorly controlled diabetes mellitus. Imaging studies over the last several months indicated hepatomegaly. She underwent cholecystectomy 4-5 months ago. Presently she is resting comfortably. Most current liver enzymes total bilirubin 0.3. AST 328. ALT 172. Alkaline phosphatase 450. These transaminase results actually are much improved from her previous counts. Review of Systems RConstitutional: Denies fever, chills, sweats, weight gain, or loss. HEENT: Negative for migraines, blurred vision or loss, earaches, drainage, tinnitus, oral mucosal lesions, dysphagia, or odynophagia. CARDIAC: Negative for chest pain, arrhythmias, or palpitation. RESPIRATORY: Negative for shortness of breath, hemoptysis, cough, or sputum production. GI: See HPI for pertinent findings. : Negative for hematuria, urgency, frequency, polyuria, or dysuria. GYNc: Denies possibility of . Negative vaginal discharge. MUSCULOSKELETAL: Negative for muscle aches, swelling, arthritis, and arthralgias. NEUROLOGIC: Negative for stroke or TIA. ENDOCRINE: Negative for thyroid problems. SKIN: Negative for rash or itching. PSYCHIATRIC: Negative history for depression and anxietyle Past Medical History Past Medical History: Asthma, Diabetes Mellitus, GERD/Reflux, Syncope Additional Past Medical History / Comment(s): Pt recently admitted to [facility] on with DKA and elevated lactic acid, transaminitis, metabolic acidosis, glycogenic hepatology-she transferred to [facility] where she states they also diagnosed her with gastroparesis. Other Hx: Recent GI illness, recent UTI and completed antibiotic, IDDM type I, DKAs, syncope pt thinks related to hypoglycemia, back pain-bulging disc, L sided sciatica, ovarian cyst. History of Any Multi-Drug Resistant Organisms: MRSA Year Discovered:: 03/2014 MDRO Source:: [place] [facility] Past Surgical History: Cholecystectomy Past Anesthesia/Blood Transfusion Reactions: No Reported Reaction Smoking Status: Light tobacco smoker - Past Family History Mother History Unknown: Yes Family Medical History: No Reported History Additional Family Medical History / Comment(s): Mother is healthy Father Family Medical History: Diabetes Mellitus Additional Family Medical History / Comment(s): Diabetes type II. Medications and Allergies Home Medications Medication Instructions Recorded Confirmed Type Insulin Aspart [NovoLOG See Protocol SQ ACHS 12/03/16 07/15/17 History (formulary)] Insulin Glargine [Lantus] 15 units SQ HS 02/21/17 07/15/17 History Cholecalciferol [Vitamin D3] 1,000 unit PO DAILY 07/15/17 07/15/17 History Allergies Allergy/AdvReac Type Severity Reaction Status Date / Time Sulfa (Sulfonamide AdvReac Nausea & Verified 07/15/17 10:53 Antibiotics) Vomiting sulfamethoxazole AdvReac Nausea & Verified 07/15/17 10:53 [From Bactrim] Vomiting trimethoprim [From Bactrim] AdvReac Nausea & Verified 07/15/17 10:53 Vomiting Physical Exam Vitals: Vital Signs Temp Pulse Resp BP Pulse Ox 07/17/17 07:46 98.9 F 85 18 113/75 99 07/17/17 04:00 97.1 F L 86 14 120/76 98 07/17/17 00:00 95 16 07/16/17 23:53 98.7 F 95 16 126/92 99 07/16/17 20:00 98 14 120/74 96 07/16/17 15:50 97.8 F 87 18 106/57 98 07/16/17 11:28 98.0 F 82 18 122/86 99 Intake and Output 07/16/17 07/17/17 07/17/17 22:59 06:59 14:59 Intake Total 6.338 910.209 122.99 Balance 6.338 910.209 122.99 Intake: Intake, IV Titration 6.338 910.209 2.99 Amount D5-0.45% NaCl with KCl 900 20Meq/l 1,000 ml @ 150 mls/hr IV .Q6H40M [facility] Rx# :[id number] Insulin Regular 100 unit 6.338 10.209 2.99 In Sodium Chloride 0.9% 100 ml @ 0.05 UNITS/KG/HR 3.13 mls/hr IV .Q24H [facility] Rx#:[id number] Oral 120 Other: Voiding Method Toilet Toilet Toilet # Voids 1 1 Weight 66.5 kg General appearance: The patient is alert, oriented, in no acute distress. HET: Head is normocephalic and atraumatic. Pupils are equal and reactive. Oropharynx is clear without lesions. Neck: Supple without lymphadenopathy. Trachea midline. Heart: S1 S2. Regular rate and rhythm. Lungs: No crackles or wheezes are heard. Abdomen: Soft, nontender, nondistended with bowel sounds. No peritoneal signs. No palpable organomegaly or masses. Extremities: Normal skin color and turgor. No cyanosis, rash, ulceration, clubbing, or edema. Radial and pedal pulses are 2/4 bilaterally. Neurological: No focal deficits. Strength and sensation are grossly intact. Results CBC & Chem 7: 07/16/17 06:16 07/17/17 10:58 Labs: Abnormal Lab Results - Last 24 Hours (Table) 07/16/17 07/16/17 07/16/17 Range/Units 09:45 10:10 11:10 Chloride 110 H (98-107) mmol/L Carbon Dioxide 14 L (22-30) mmol/L Creatinine 0.44 L (0.52-1.04) mg/dL Glucose 146 H (74-99) mg/dL POC Glucose (mg/dL) 141 H 148 H (75-99) mg/dL Calcium 8.1 L (8.4-10.2) mg/dL Phosphorus (2.5-4.5) mg/dL AST (14-36) U/L ALT (9-52) U/L Alkaline Phosphatase (38-126) U/L Total Protein (6.3-8.2) g/dL Albumin (3.5-5.0) g/dL 07/16/17 07/16/17 07/16/17 Range/Units 12:10 13:12 13:48 Chloride (98-107) mmol/L Carbon Dioxide 18 L (22-30) mmol/L Creatinine 0.46 L (0.52-1.04) mg/dL Glucose 146 H (74-99) mg/dL POC Glucose (mg/dL) 182 H 114 H (75-99) mg/dL Calcium (8.4-10.2) mg/dL Phosphorus (2.5-4.5) mg/dL AST 328 H (14-36) U/L ALT 172 H (9-52) U/L Alkaline Phosphatase 450 H (38-126) U/L Total Protein 5.3 L (6.3-8.2) g/dL Albumin 3.2 L (3.5-5.0) g/dL 07/16/17 07/16/17 07/16/17 Range/Units 14:01 15:10 16:14 Chloride (98-107) mmol/L Carbon Dioxide (22-30) mmol/L Creatinine (0.52-1.04) mg/dL Glucose (74-99) mg/dL POC Glucose (mg/dL) 201 H 337 H 219 H (75-99) mg/dL Calcium (8.4-10.2) mg/dL Phosphorus (2.5-4.5) mg/dL AST (14-36) U/L ALT (9-52) U/L Alkaline Phosphatase (38-126) U/L Total Protein (6.3-8.2) g/dL Albumin (3.5-5.0) g/dL 07/16/17 07/16/17 07/16/17 Range/Units 17:14 18:17 18:57 Chloride (98-107) mmol/L Carbon Dioxide (22-30) mmol/L Creatinine (0.52-1.04) mg/dL Glucose (74-99) mg/dL POC Glucose (mg/dL) 163 H 146 H 138 H (75-99) mg/dL Calcium (8.4-10.2) mg/dL Phosphorus (2.5-4.5) mg/dL AST (14-36) U/L ALT (9-52) U/L Alkaline Phosphatase (38-126) U/L Total Protein (6.3-8.2) g/dL Albumin (3.5-5.0) g/dL 07/16/17 07/16/17 07/16/17 Range/Units 19:08 20:08 21:02 Chloride (98-107) mmol/L Carbon Dioxide 16 L (22-30) mmol/L Creatinine 0.44 L (0.52-1.04) mg/dL Glucose 126 H (74-99) mg/dL POC Glucose (mg/dL) 262 H 272 H (75-99) mg/dL Calcium (8.4-10.2) mg/dL Phosphorus (2.5-4.5) mg/dL AST (14-36) U/L ALT (9-52) U/L Alkaline Phosphatase (38-126) U/L Total Protein (6.3-8.2) g/dL Albumin (3.5-5.0) g/dL 07/16/17 07/16/17 07/16/17 Range/Units 22:27 22:52 23:24 Chloride (98-107) mmol/L Carbon Dioxide 13 L (22-30) mmol/L Creatinine 0.40 L (0.52-1.04) mg/dL Glucose 129 H (74-99) mg/dL POC Glucose (mg/dL) 180 H 114 H (75-99) mg/dL Calcium (8.4-10.2) mg/dL Phosphorus (2.5-4.5) mg/dL AST (14-36) U/L ALT (9-52) U/L Alkaline Phosphatase (38-126) U/L Total Protein (6.3-8.2) g/dL Albumin (3.5-5.0) g/dL 07/17/17 07/17/17 07/17/17 Range/Units 01:50 03:01 03:43 Chloride (98-107) mmol/L Carbon Dioxide 20 L (22-30) mmol/L Creatinine (0.52-1.04) mg/dL Glucose 172 H (74-99) mg/dL POC Glucose (mg/dL) 158 H 150 H (75-99) mg/dL Calcium (8.4-10.2) mg/dL Phosphorus 4.6 H (2.5-4.5) mg/dL AST (14-36) U/L ALT (9-52) U/L Alkaline Phosphatase (38-126) U/L Total Protein (6.3-8.2) g/dL Albumin (3.5-5.0) g/dL 07/17/17 07/17/17 07/17/17 Range/Units 04:39 06:02 06:34 Chloride (98-107) mmol/L Carbon Dioxide 19 L (22-30) mmol/L Creatinine (0.52-1.04) mg/dL Glucose 357 H (74-99) mg/dL POC Glucose (mg/dL) 214 H 349 H (75-99) mg/dL Calcium 8.1 L (8.4-10.2) mg/dL Phosphorus 4.6 H (2.5-4.5) mg/dL AST (14-36) U/L ALT (9-52) U/L Alkaline Phosphatase (38-126) U/L Total Protein (6.3-8.2) g/dL Albumin (3.5-5.0) g/dL 07/17/17 07/17/17 07/17/17 Range/Units 06:48 08:02 09:12 Chloride (98-107) mmol/L Carbon Dioxide (22-30) mmol/L Creatinine (0.52-1.04) mg/dL Glucose (74-99) mg/dL POC Glucose (mg/dL) 393 H 348 H 306 H (75-99) mg/dL Calcium (8.4-10.2) mg/dL Phosphorus (2.5-4.5) mg/dL AST (14-36) U/L ALT (9-52) U/L Alkaline Phosphatase (38-126) U/L Total Protein (6.3-8.2) g/dL Albumin (3.5-5.0) g/dL Assessment and Plan (1) Glycogenic hepatopathy Narrative/Plan: Reversible pathologic response secondary to overloading hepatocytes with glycogen and is associated with poorly controlled diabetes mellitus causing elevated transaminases. Current Visit: Yes Status: Acute Code(s): K75.81 - NONALCOHOLIC STEATOHEPATITIS ([place]) SNOMED Code(s): 342151365 (2) Elevated liver enzymes Narrative/Plan: secondary to primary diagnosis Current Visit: Yes Status: Acute Code(s): R74.8 - ABNORMAL LEVELS OF OTHER SERUM ENZYMES SNOMED Code(s): 476807205 (3) Insulin dependent diabetes mellitus Current Visit: No Status: Chronic Code(s): E11.9 - TYPE 2 DIABETES MELLITUS WITHOUT COMPLICATIONS; Z79.4 - FRAMEMAN (CURRENT) USE OF INSULIN SNOMED Code( s): 86898961 (4) DKA (diabetic ketoacidoses) Current Visit: No Status: Resolved Code(s): E13.10 - OTH DIABETES MELLITUS WITH KETOACIDOSIS WITHOUT COMA SNOMED Code(s): 580360814 (5) Hepatomegaly Current Visit: Yes Status: Chronic Code(s): R16.0 - HEPATOMEGALY, NOT ELSEWHERE CLASSIFIED SNOMED Code(s): 54318738 Plan: 1. Treatment of dysglycemia will result in improvement or resolution of transaminitis and possible hepatomegaly. For now continue with glycemic control. Patient is under the care of an regulatory affairs consultant at a tertiary center. No further workup from a GI standpoint. We'll be available for additional questions or concerns. Thank you for this kind referral and the opportunity to participate in the care of your patient. This consultation was discussed with Dr. Christianson. The impression and plan of care have been directed as dictated.
[2017-07-17 10:29] LABS: Glucose,Whole Blood 263 mg/dL (75-99)
[2017-07-17 11:17] LABS: Glucose,Whole Blood 153 mg/dL (75-99)
[2017-07-17 11:35] LABS: Anion Gap 17 mmol/L; Blood Urea Nitrogen 17 mg/dL (7-17); Carbon Dioxide 18 mmol/L (22-30); Chloride 107 mmol/L (98-107); Glucose 139 mg/dL (74-99); Potassium 4.2 mmol/L (3.5-5.1); Sodium 142 mmol/L (137-145)
[2017-07-17 12:19] LABS: Glucose,Whole Blood 100 mg/dL (75-99)
[2017-07-17 12:53] LABS: Glucose,Whole Blood 94 mg/dL (75-99)
[2017-07-17] MEDS ORDERED: ACETAMINOPHEN TAB 325 MG TAB PO PRN (12:55)
--- NOTE | 2017-07-17 13:04 | P.PN ---
Subjective Patient was admitted for DKA patient still has anion gap of 16. Was anion gap resolved patient will be switched to subcutaneous insulin. 07/17/2017 Unsure why patient still has anion gap anyways patient was switched to subcutaneous insulin closely monitor and make sure anion gap is not going up tomorrow patient has elevated liver enzymes secondary to DKA which are expected to improve on repeat with compensative metabolic profile tomorrow. Patient has couple episodes of diarrhea gastroneurology evaluated the patient. Constitutional: Denied any fatigue denied any fever. Cardio vascular: denied any chest pain, palpitations Gastrointestinal denied any nausea vomiting Pulmonary: Denied any shortness of breath cough Neurologic denied any new focal deficits Objective - Vital Signs Vital signs: Vital Signs Temp 98.9 F 07/17/17 07:46 Pulse 85 07/17/17 07:46 Resp 18 07/17/17 07:46 BP 113/75 07/17/17 07:46 Pulse Ox 99 07/17/17 07:46 Intake & Output 07/16/17 07/17/17 07/17/17 18:59 06:59 18:59 Intake Total 11.842 911.758 138.197 Balance 11.842 911.758 138.197 Weight 62.142 kg 66.5 kg Intake: Intake, IV Titration 11.842 911.758 18.197 Amount D5-0.45% NaCl with KCl 900 20Meq/l 1,000 ml @ 150 mls/hr IV .Q6H40M JAMAL Rx# :[id number] Insulin Regular 100 unit 11.842 11.758 18.197 In Sodium Chloride 0.9% 100 ml @ 0.05 UNITS/KG/HR 3.13 mls/hr IV .Q24H JAMAL Rx#:[id number] Oral 120 Other: Voiding Method Toilet Toilet # Voids 1 1 0 # Bowel Movements 0 - Exam PHYSICAL EXAMINATION: GENERAL: The patient is alert and oriented x3, not in any acute distress. Well developed, well nourished. HEENT: Pupils are round and equally reacting to light. EOMI. No scleral icterus. No conjunctival pallor. Normocephalic, atraumatic. No pharyngeal erythema. No thyromegaly. CARDIOVASCULAR: S1 and S2 present. No murmurs, rubs, or gallops. PULMONARY: Chest is clear to auscultation, no wheezing or crackles. ABDOMEN: Soft, nontender, nondistended, normoactive bowel sounds. No palpable organomegaly. MUSCULOSKELETAL: No joint swelling or deformity. EXTREMITIES: No cyanosis, clubbing, or pedal edema. NEUROLOGICAL: Gross neurological examination did not reveal any focal deficits. SKIN: No rashes. - Labs CBC & Chem 7: 07/16/17 06:16 07/17/17 10:58 Labs: Abnormal Lab Results - Last 24 Hours (Table) 07/16/17 07/16/17 07/16/17 Range/Units 13:12 13:48 14:01 Carbon Dioxide 18 L (22-30) mmol/L Creatinine 0.46 L (0.52-1.04) mg/dL Glucose 146 H (74-99) mg/dL POC Glucose (mg/dL) 114 H 201 H (75-99) mg/dL Calcium (8.4-10.2) mg/dL Phosphorus (2.5-4.5) mg/dL AST 328 H (14-36) U/L ALT 172 H (9-52) U/L Alkaline Phosphatase 450 H (38-126) U/L Total Protein 5.3 L (6.3-8.2) g/dL Albumin 3.2 L (3.5-5.0) g/dL 07/16/17 07/16/17 07/16/17 Range/Units 15:10 16:14 17:14 Carbon Dioxide (22-30) mmol/L Creatinine (0.52-1.04) mg/dL Glucose (74-99) mg/dL POC Glucose (mg/dL) 337 H 219 H 163 H (75-99) mg/dL Calcium (8.4-10.2) mg/dL Phosphorus (2.5-4.5) mg/dL AST (14-36) U/L ALT (9-52) U/L Alkaline Phosphatase (38-126) U/L Total Protein (6.3-8.2) g/dL Albumin (3.5-5.0) g/dL 07/16/17 07/16/17 07/16/17 Range/Units 18:17 18:57 19:08 Carbon Dioxide 16 L (22-30) mmol/L Creatinine 0.44 L (0.52-1.04) mg/dL Glucose 126 H (74-99) mg/dL POC Glucose (mg/dL) 146 H 138 H (75-99) mg/dL Calcium (8.4-10.2) mg/dL Phosphorus (2.5-4.5) mg/dL AST (14-36) U/L ALT (9-52) U/L Alkaline Phosphatase (38-126) U/L Total Protein (6.3-8.2) g/dL Albumin (3.5-5.0) g/dL 07/16/17 07/16/17 07/16/17 Range/Units 20:08 21:02 22:27 Carbon Dioxide (22-30) mmol/L Creatinine (0.52-1.04) mg/dL Glucose (74-99) mg/dL POC Glucose (mg/dL) 262 H 272 H 180 H (75-99) mg/dL Calcium (8.4-10.2) mg/dL Phosphorus (2.5-4.5) mg/dL AST (14-36) U/L ALT (9-52) U/L Alkaline Phosphatase (38-126) U/L Total Protein (6.3-8.2) g/dL Albumin (3.5-5.0) g/dL 07/16/17 07/16/17 07/17/17 Range/Units 22:52 23:24 01:50 Carbon Dioxide 13 L (22-30) mmol/L Creatinine 0.40 L (0.52-1.04) mg/dL Glucose 129 H (74-99) mg/dL POC Glucose (mg/dL) 114 H 158 H (75-99) mg/dL Calcium (8.4-10.2) mg/dL Phosphorus (2.5-4.5) mg/dL AST (14-36) U/L ALT (9-52) U/L Alkaline Phosphatase (38-126) U/L Total Protein (6.3-8.2) g/dL Albumin (3.5-5.0) g/dL 07/17/17 07/17/17 07/17/17 Range/Units 03:01 03:43 04:39 Carbon Dioxide 20 L (22-30) mmol/L Creatinine (0.52-1.04) mg/dL Glucose 172 H (74-99) mg/dL POC Glucose (mg/dL) 150 H 214 H (75-99) mg/dL Calcium (8.4-10.2) mg/dL Phosphorus 4.6 H (2.5-4.5) mg/dL AST (14-36) U/L ALT (9-52) U/L Alkaline Phosphatase (38-126) U/L Total Protein (6.3-8.2) g/dL Albumin (3.5-5.0) g/dL 07/17/17 07/17/17 07/17/17 Range/Units 06:02 06:34 06:48 Carbon Dioxide 19 L (22-30) mmol/L Creatinine (0.52-1.04) mg/dL Glucose 357 H (74-99) mg/dL POC Glucose (mg/dL) 349 H 393 H (75-99) mg/dL Calcium 8.1 L (8.4-10.2) mg/dL Phosphorus 4.6 H (2.5-4.5) mg/dL AST (14-36) U/L ALT (9-52) U/L Alkaline Phosphatase (38-126) U/L Total Protein (6.3-8.2) g/dL Albumin (3.5-5.0) g/dL 07/17/17 07/17/17 07/17/17 Range/Units 08:02 09:12 10:09 Carbon Dioxide (22-30) mmol/L Creatinine (0.52-1.04) mg/dL Glucose (74-99) mg/dL POC Glucose (mg/dL) 348 H 306 H 263 H (75-99) mg/dL Calcium (8.4-10.2) mg/dL Phosphorus (2.5-4.5) mg/dL AST (14-36) U/L ALT (9-52) U/L Alkaline Phosphatase (38-126) U/L Total Protein (6.3-8.2) g/dL Albumin (3.5-5.0) g/dL 07/17/17 07/17/17 07/17/17 Range/Units 10:58 10:58 11:59 Carbon Dioxide 18 L (22-30) mmol/L Creatinine 0.47 L (0.52-1.04) mg/dL Glucose 139 H (74-99) mg/dL POC Glucose (mg/dL) 153 H 100 H (75-99) mg/dL Calcium (8.4-10.2) mg/dL Phosphorus (2.5-4.5) mg/dL AST (14-36) U/L ALT (9-52) U/L Alkaline Phosphatase (38-126) U/L Total Protein (6.3-8.2) g/dL Albumin (3.5-5.0) g/dL Assessment and Plan Plan: -Diabetic acidosis and anion gap metabolic acidosis: Patient will be transitioned to subcutaneous insulin along with sliding scale with each meal and will be transferred out of [facility] to care. We'll repeat compresses metabolic profile tomorrow. -Elevated liver enzymes secondary to DKA -Recent viral gastroenteritis still has couple episodes of diarrhea -Lactic acidosis secondary to intravascular volume depletion dehydration. Improved with the IV fluids -Diabetes mellitus type 1 -Hypokalemia potassium was supplemented secondary to IV insulin. Asthma without any acute exacerbation Gastroesophageal reflux disease.
[2017-07-17] MEDS: SODIUM CHLORIDE 0.45% 1,000 ML IV SCH ×2 (13:19→23:15)
[2017-07-17] MEDS: ACETAMINOPHEN TAB 325 MG TAB PO PRN ×2 (13:20→21:49)
[2017-07-17] MEDS: PANTOPRAZOLE 40 MG/10 ML VIAL IVP SCH (13:21)
[2017-07-17] MEDS: INSULIN DETEMIR 100 UNIT/ML 10 ML VIAL SQ SCH (13:33)
[2017-07-17 16:45] LABS: Glucose,Whole Blood 318 mg/dL (75-99)
[2017-07-17] MEDS: INSULIN ASPART 100 UNIT/ML 1 ML 10 ML VIAL SQ SCH ×3 (17:29→20:45)
[2017-07-17 20:29] LABS: Glucose,Whole Blood 84 mg/dL (75-99)
[2017-07-17] MEDS ORDERED: INSULIN GLARGINE 15 UNIT SQ SCH (21:00)
[2017-07-17] MEDS ORDERED: INSULIN DETEMIR 100 UNIT/ML 10 ML VIAL SQ SCH (21:00)
[2017-07-18 07:11] LABS: Glucose,Whole Blood 348 mg/dL (75-99)
[2017-07-18] MEDS: INSULIN ASPART 100 UNIT/ML 1 ML 10 ML VIAL SQ SCH ×6 (07:15→18:59)
[2017-07-18] MEDS: ACETAMINOPHEN TAB 325 MG TAB PO PRN ×2 (07:19→13:43)
[2017-07-18 07:34] LABS: Calcium 8.5 mg/dL (8.4-10.2); Potassium 4.6 mmol/L (3.5-5.1); Total Bilirubin 0.3 mg/dL (0.2-1.3); Total Protein 5.1 g/dL (6.3-8.2)
[2017-07-18] MEDS: INSULIN DETEMIR 100 UNIT/ML 10 ML VIAL SQ SCH (08:48)
[2017-07-18] MEDS: PANTOPRAZOLE 40 MG/10 ML VIAL IVP SCH (08:49)
[2017-07-18] MEDS: SODIUM CHLORIDE 0.45% 1,000 ML IV SCH (08:49)
[2017-07-18 11:38] LABS: Glucose,Whole Blood 168 mg/dL (75-99)
[2017-07-18 15:59] VITALS: BP 109/76; PULSE 80; RESP 16; TEMP 98.6
[2017-07-18 17:12] LABS: Glucose,Whole Blood 63 mg/dL (75-99)
[2017-07-18 17:30] LABS: Glucose,Whole Blood 76 mg/dL (75-99)
--- NOTE | 2017-07-18 18:40 | P.DS ---
Providers Date of admission: 07/15/17 11:51 Attending physician: Karina Teran Primary care physician: [facility] Course: Patient was admitted for DKA patient still has anion gap of 16. Was anion gap resolved patient will be switched to subcutaneous insulin. 07/17/2017 Unsure why patient still has anion gap anyways patient was switched to subcutaneous insulin closely monitor and make sure anion gap is not going up tomorrow patient has elevated liver enzymes secondary to DKA which are expected to improve on repeat with compensative metabolic profile tomorrow. Patient has couple episodes of diarrhea gastroneurology evaluated the patient. 07/18/2017 Patient's anion gap improved even compared to yesterday. Patient blood sugars although fluctuating. 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 Patient had a bit of low blood sugar of 66 improved with the oral sugars supplementation. Patient gastroenteritis improved PHYSICAL EXAMINATION: GENERAL: The patient is alert and oriented x3, not in any acute distress. Well developed, well nourished. HEENT: Pupils are round and equally reacting to light. EOMI. No scleral icterus. No conjunctival pallor. Normocephalic, atraumatic. No pharyngeal erythema. No thyromegaly. CARDIOVASCULAR: S1 and S2 present. No murmurs, rubs, or gallops. PULMONARY: Chest is clear to auscultation, no wheezing or crackles. ABDOMEN: Soft, nontender, nondistended, normoactive bowel sounds. No palpable organomegaly. MUSCULOSKELETAL: No joint swelling or deformity. EXTREMITIES: No cyanosis, clubbing, or pedal edema. NEUROLOGICAL: Gross neurological examination did not reveal any focal deficits. SKIN: No rashes. Assessment and Plan Plan: -Diabetic acidosis and anion gap metabolic acidosis: -Elevated liver enzymes secondary to DKA, improved compared to yesterday -Recent viral gastroenteritis still has couple episodes of diarrhea -Lactic acidosis secondary to intravascular volume depletion dehydration. Improved with the IV fluids -Diabetes mellitus type 1. Asthma without any acute exacerbation Gastroesophageal reflux disease. Patient Condition at Discharge: Serious Plan - Discharge Summary Discharge Rx Participant: Yes New Discharge Prescriptions: No Action Insulin Aspart [NovoLOG (formulary)] See Protocol SQ ACHS Insulin Glargine [Lantus] 15 units SQ HS Cholecalciferol [Vitamin D3] 1,000 unit PO DAILY Discharge Medication List Insulin Aspart [NovoLOG (formulary)] See Protocol SQ ACHS 12/03/16 [History] Insulin Glargine [Lantus] 15 units SQ HS 02/21/17 [History] Cholecalciferol [Vitamin D3] 1,000 unit PO DAILY 07/15/17 [History] Follow up Appointment(s)/Referral(s): Deborah Stearns MD [Primary Care Provider] - 1-2 days Activity/Diet/Wound Care/Special Instructions: any blood sugar issues or concerns please report back to the er. 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 Discharge Disposition: HOME SELF-CARE
[2017-07-19] MEDS ORDERED: PANTOPRAZOLE 40 MG TABLET PO SCH (07:30)
== END 2017-07-18 19:20 | disposition home or self-care (01) | DRG 639 ==
LOC: EC 10:02 → 6SEL 11:51 → 6PED 07-17 21:35
PROVIDERS: ADMIT Hospitalist; ATTEND Hospitalist
DX: E10.10 Type 1 diabetes mellitus with ketoacidosis without coma (principal); E10.43 Type 1 diabetes mellitus with diabetic autonomic (poly)neuropathy; E86.0 Dehydration; E87.6 Hypokalemia; F17.200 Nicotine dependence, unspecified, uncomplicated; J45.909 Unspecified asthma, uncomplicated; K21.9 Gastro-esophageal reflux disease without esophagitis; K31.84 Gastroparesis; K52.9 Noninfective gastroenteritis and colitis, unspecified; K75.81 Nonalcoholic steatohepatitis (NASH); Z79.4 Long term (current) use of insulin; Z83.3 Family history of diabetes mellitus; Z90.49 Acquired absence of other specified parts of digestive tract; Z88.1 Allergy status to other antibiotic agents; Z88.2 Allergy status to sulfonamides; Z86.14 Personal history of Methicillin resistant Staphylococcus aureus infection
CPT/HCPCS: 36415; 80048; 80051; 80053; 81001; 81025; 82009; 82565; 82803; 82947; 83605; 84100; 84520; 85025; 85027; 96361; 96374; 96375; 99285

== ENCOUNTER → 2017-12-01 | Outpatient (CLI) | payer OTHER ==
[2017-12-01 17:02] LABS: Basophils # (A) 0.1 k/uL (0-0.2); Basophils % (A) 1 %; Eosinophils # (A) 0.3 k/uL (0-0.7); Eosinophils % (A) 4 %; HCT 41.8 % (34.0-46.0); HGB 13.2 gm/dL (11.4-16.0); Lymphocytes # (A) 3.1 k/uL (1.0-4.8); Lymphocytes % (A) 42 %; MCH 28.4 pg (25.0-35.0); MCHC 31.5 g/dL (31.0-37.0); MCV 90.2 fL (80.0-100.0); Mean Platelet Volume 5.9; Monocytes # (A) 0.3 k/uL (0-1.0); Monocytes % (A) 4 %; Neutrophils # (A) 3.5 k/uL (1.3-7.7); Neutrophils % (A) 47 %; Platelet Count 642 k/uL (150-450); RBC 4.63 m/uL (3.80-5.40); RDW 12.6 % (11.5-15.5); WBC 7.4 k/uL (3.8-10.6)
[2017-12-01 17:08] LABS: ALT 30 U/L (9-52); AST 29 U/L (14-36); Albumin 4.5 g/dL (3.5-5.0); Alkaline Phosphatase 148 U/L (38-126); Anion Gap 14 mmol/L; Blood Urea Nitrogen 13 mg/dL (7-17); Carbon Dioxide 25 mmol/L (22-30); Chloride 99 mmol/L (98-107); Glucose 313 mg/dL (74-99); Potassium 4.1 mmol/L (3.5-5.1); Sodium 138 mmol/L (137-145); Total Bilirubin 0.2 mg/dL (0.2-1.3); Total Protein 7.4 g/dL (6.3-8.2)
[2017-12-02 04:48] LABS: Hemoglobin A1C 8.5 % (4.0-6.0)
[2017-12-02 10:10] LABS: Vitamin D 25 Hydroxy 20.3 ng/mL (30.0-100.0)
[2017-12-02 10:15] LABS: Folate, Serum 17.6 ng/mL
[2017-12-02 13:46] LABS: Vitamin B12 >4000.0 pg/mL (200.0-944.0)
== END | disposition home or self-care (01) ==
LOC: LABWHC1 16:21
PROVIDERS: ATTEND Nurse Practitioner Family
DX: E10.65 Type 1 diabetes mellitus with hyperglycemia (principal); G62.9 Polyneuropathy, unspecified; R74.8 Abnormal levels of other serum enzymes
CPT/HCPCS: 36415; 80053; 82140; 82306; 82607; 82746; 83036; 84439; 84443; 84481; 85025

== ENCOUNTER 2017-12-02 15:57 | Emergency (ER) | payer OTHER ==
[2017-12-02 16:51] VITALS: BP 141/97; PULSE 118; RESP 18; TEMP 99.2
[2017-12-02] MEDS ORDERED: SODIUM CHLORIDE 0.9% 1,000 ML IV ONE (17:19)
[2017-12-02] MEDS ORDERED: KETOROLAC 30 MG/ML 1 ML VIAL IVP STA (17:19)
[2017-12-02] MEDS ORDERED: ONDANSETRON 4 MG/2 ML VIAL IVP STA (17:20)
[2017-12-02] MEDS ORDERED: LORazepam 2 MG/ML INJ IV STA (17:21)
--- NOTE | 2017-12-02 19:55 | ED ---
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 Mother is concerned patient may have hepatic encephalopathy so they did have labs performed by the primary care physician yesterday. They're requesting the results of these tests. Patient states that these symptoms have been worsening over the course of the last 2-3 weeks. Patient did take Motrin at 10 AM this morning he did not help her symptoms at all. Patient states that she is feeling nauseated but has not vomited. Patient states her blood sugar was around 371 prior to coming in, she did provide her a self dose of correctional insulin. She denies any abdominal pain. She denies any fever or chills. Patient denies any recent rash, shortness breath, chest pain, diarrhea, constipation, back pain, dizziness, weakness, hematuria, dysuria, urinary urgency, urinary frequency, headache, visual changes, or any other complaints. - Related Data Home Medications Medication Instructions Recorded Confirmed Insulin Aspart [NovoLOG See Protocol SQ ACHS 12/03/16 12/02/17 (formulary)] Insulin Glargine [Lantus] 26 units SQ HS 02/21/17 12/02/17 Cyclobenzaprine HCl 5 mg PO DAILY PRN 12/02/17 12/02/17 Ibuprofen [Motrin Ib] 800 mg PO TID PRN 12/02/17 12/02/17 Insulin Aspart [NovoLOG 5 unit SQ AC-TID 12/02/17 12/02/17 (formulary)] Naproxen 500 mg PO BID PRN 12/02/17 12/02/17 Allergies Allergy/AdvReac Type Severity Reaction Status Date / Time Sulfa (Sulfonamide AdvReac Nausea & Verified 12/02/17 16:48 Antibiotics) Vomiting sulfamethoxazole AdvReac Nausea & Verified 12/02/17 16:48 [From Bactrim] Vomiting trimethoprim [From Bactrim] AdvReac Nausea & Verified 09/18/18 16:48 Vomiting Review of Systems ROS Statement: Those systems with pertinent positive or pertinent negative responses have been documented in the HPI. ROS Other: All systems not noted in ROS Statement are negative. Past Medical History Past Medical History: Asthma, Diabetes Mellitus, GERD/Reflux, Syncope Additional Past Medical History / Comment(s): Pt recently admitted to [facility] on with DKA and elevated lactic acid, transaminitis, metabolic acidosis, glycogenic hepatology-she transferred to [facility] where she states they also diagnosed her with gastroparesis. Other Hx: Recent GI illness, recent UTI and completed antibiotic, IDDM type I, DKAs, syncope pt thinks related to hypoglycemia, back pain-bulging disc, L sided sciatica, ovarian cyst. History of Any Multi-Drug Resistant Organisms: MRSA Date of last positivie culture/infection: 03/2014 MDRO Source:: GRO[place] AREA Past Surgical History: Cholecystectomy Past Anesthesia/Blood Transfusion Reactions: No Reported Reaction Past Psychological History: No Psychological Hx Reported Smoking Status: Light tobacco smoker - Past Family History Mother History Unknown: Yes Family Medical History: No Reported History Additional Family Medical History / Comment(s): Mother is healthy Father Family Medical History: Diabetes Mellitus Additional Family Medical History / Comment(s): Diabetes type II. General Exam Limitations: no limitations General appearance: alert, in no apparent distress, other (This is a well- developed, well-nourished adult female patient in no acute distress. Vital signs upon presentation are temperature 99.1F, pulse 129, respirations 20, blood pressure 125/87, pulse ox 98% on room air.) Eye exam: Present: normal appearance, PERRL, EOMI. Absent: scleral icterus, conjunctival injection, periorbital swelling ENT exam: Present: normal exam, normal oropharynx, mucous membranes moist Respiratory exam: Present: normal lung sounds bilaterally. Absent: respiratory distress, wheezes, rales, rhonchi, stridor Cardiovascular Exam: Present: regular rate, normal rhythm, normal heart sounds. Absent: systolic murmur, diastolic murmur, rubs, gallop, clicks GI/Abdominal exam: Present: soft, normal bowel sounds. Absent: distended, tenderness, guarding, rebound, rigid Neurological exam: Present: alert, oriented X3, CN II-XII intact, other ( Strength in all 4 extremities is 5/5.) Psychiatric exam: Present: normal affect, normal mood Skin exam: Present: warm, dry, intact, normal color. Absent: rash Course Vital Signs 12/02/17 12/02/17 16:10 16:50 Temperature 99.1 F 99.2 F Pulse Rate 129 H 118 H Respiratory 20 18 Rate Blood Pressure 125/87 141/97 O2 Sat by Pulse 98 97 Oximetry EKG Findings - EKG Comments: EKG Findings:: EKG obtained at 1622 shows sinus tachycardia with a ventricular rate of 122, ND interval 150, QRS duration 78, QT 318, QTC 453. No evidence of ST elevation or depression. Medical Decision Making - Medical Decision Making 22-year-old female patient percents into the emergency department today for complaints of generalized weakness, body pain related to diabetic neuropathy, and "electrical shocks" throughout her body. Also reported she had been twitching and having spasms of her limbs. Physical examination was relatively unremarkable. Patient did have what appeared to be involuntary movements of her limbs at times during the exam. Patient is neurologically intact. Did order labs and medications to aid in her symptoms however patient did not want to have any testing done, refused medications, and left AGAINST MEDICAL ADVICE. She is instructed to follow-up with her physician for recheck as soon as possible. Disposition Clinical Impression: Neuropathy, Body aches Disposition: Left Against Medical Advice Condition: Undetermined Referrals: Deborah Stearns MD [Primary Care Provider] - 1-2 days
== END 2017-12-02 18:13 | disposition left against medical advice (07) ==
LOC: EC 15:57
DX: E10.40 Type 1 diabetes mellitus with diabetic neuropathy, unspecified (principal); F17.200 Nicotine dependence, unspecified, uncomplicated; Z86.14 Personal history of Methicillin resistant Staphylococcus aureus infection; Z79.4 Long term (current) use of insulin; Z88.2 Allergy status to sulfonamides; Z53.29 Procedure and treatment not carried out because of patient's decision for other reasons
CPT/HCPCS: 93005; 99284

== ENCOUNTER → 2017-12-17 | Outpatient (CLI) | payer OTHER ==
[2017-12-17 18:21] LABS: Rheumatoid Factor 6 IU/mL (0-15)
[2017-12-17 19:49] LABS: EBV-VCA (IgG) <0.2 AI
== END | disposition home or self-care (01) ==
LOC: LABWHC1 11:05
PROVIDERS: ATTEND Nurse Practitioner Family
DX: M79.2 Neuralgia and neuritis, unspecified (principal); M25.50 Pain in unspecified joint
CPT/HCPCS: 36415; 85652; 86038; 86140; 86431; 86618; 86663; 86664; 86665

== ENCOUNTER 2018-01-03 12:31 | Inpatient (IN) | payer OTHER ==
[2018-01-03] MEDS ORDERED: SODIUM CHLORIDE 0.9% 500 ML 500 ML IV STA (13:00)
[2018-01-03] MEDS ORDERED: SODIUM CHLORIDE 0.9% 1,000 ML IV STA ×2 (13:00)
[2018-01-03] MEDS ORDERED: LORazepam 2 MG/ML INJ IV STA (13:01)
--- NOTE | 2018-01-03 13:11 | ED ---
Psych HPI - General Chief Complaint: Recheck/Abnormal Lab/Rx Stated Complaint: All Over Pain Time Seen by Provider: 01/03/18 13:00 Source: patient, RN notes reviewed, old records reviewed Mode of arrival: ambulatory - History of Present Illness Initial Comments: This is a 22-year-old female the ER for evaluation patient is multiple issues psychiatric issues as well as neurologic issues. Shaking tremors nausea vomiting inability take in diet. Patient is recent change in medications which she states is not working for her symptoms. Patient's history obtained by mother is patient is unable to provide history MD Complaint: suicidal ideation (Patient occasional suicidal secondary to severe ), feels depressed -: unknown Associated Psychiatric Symptoms: depression Improves With: none Worsens With: none, medication Associated Symptoms: denies other symptoms Treatments Prior to Arrival: none - Related Data Home Medications Medication Instructions Recorded Confirmed Insulin Aspart [NovoLOG See Protocol SQ ACHS 12/03/16 01/03/18 (formulary)] Insulin Glargine [Lantus] 26 units SQ HS 02/21/17 01/03/18 Ibuprofen [Motrin Ib] 800 mg PO TID PRN 12/02/17 01/03/18 Insulin Aspart [NovoLOG 5 unit SQ AC-TID 12/02/17 01/03/18 (formulary)] Cholecalciferol [Vitamin D3] 1,000 unit PO DAILY 01/03/18 01/03/18 Cider Vinegar [Apple Cider Vinegar] 300 mg PO DAILY 01/03/18 01/03/18 Gabapentin [Neurontin] 100 mg PO TID 01/03/18 01/03/18 Levothyroxine Sodium [Synthroid] 25 mcg PO DAILY 01/03/18 01/03/18 Lidocaine 4% Cream [Lmx 4] 1 applic TOPICAL TID 01/03/18 01/03/18 Loperamide [Imodium] 2 mg PO QID 01/03/18 01/03/18 Multivitamins, Thera [Multivitamin 1 tab PO DAILY 01/03/18 01/03/18 (formulary)] Valerian Root 100 mg PO DAILY 01/03/18 01/03/18 traZODone HCL [Desyrel] 100 mg PO HS 01/03/18 01/03/18 Allergies Allergy/AdvReac Type Severity Reaction Status Date / Time No Known Allergies Allergy Unverified 01/03/18 14:15 Review of Systems ROS Statement: Those systems with pertinent positive or pertinent negative responses have been documented in the HPI. ROS Other: All systems not noted in ROS Statement are negative. Past Medical History Past Medical History: Asthma, Diabetes Mellitus, GERD/Reflux, Syncope Additional Past Medical History / Comment(s): Pt recently admitted to [facility] on with DKA and elevated lactic acid, transaminitis, metabolic acidosis, glycogenic hepatology-she transferred to [facility] where she states they also diagnosed her with gastroparesis. Other Hx: Recent GI illness, recent UTI and completed antibiotic, IDDM type I, DKAs, syncope pt thinks related to hypoglycemia, back pain-bulging disc, L sided sciatica, ovarian cyst. History of Any Multi-Drug Resistant Organisms: MRSA Date of last positivie culture/infection: 03/2014 MDRO Source:: GROIN AREA Past Surgical History: Cholecystectomy Past Anesthesia/Blood Transfusion Reactions: No Reported Reaction Past Psychological History: Anxiety, Depression Smoking Status: Light tobacco smoker Past Alcohol Use History: None Reported Past Drug Use History: Marijuana - Past Family History Mother History Unknown: Yes Family Medical History: No Reported History Additional Family Medical History / Comment(s): Mother is healthy Father Family Medical History: Diabetes Mellitus Additional Family Medical History / Comment(s): Diabetes type II. General Exam Limitations: no limitations General appearance: alert, in no apparent distress Head exam: Present: atraumatic, normocephalic, normal inspection Eye exam: Present: normal appearance, PERRL, EOMI. Absent: scleral icterus, conjunctival injection, periorbital swelling ENT exam: Present: normal exam, mucous membranes moist Neck exam: Present: normal inspection. Absent: tenderness, meningismus, lymphadenopathy Respiratory exam: Present: normal lung sounds bilaterally. Absent: respiratory distress, wheezes, rales, rhonchi, stridor Cardiovascular Exam: Present: regular rate, normal rhythm, normal heart sounds. Absent: systolic murmur, diastolic murmur, rubs, gallop, clicks GI/Abdominal exam: Present: soft, normal bowel sounds. Absent: distended, tenderness, guarding, rebound, rigid Extremities exam: Present: normal inspection, full ROM, normal capillary refill. Absent: tenderness, pedal edema, joint swelling, calf tenderness Back exam: Present: normal inspection Neurological exam: Present: alert, oriented X3, CN II-XII intact Psychiatric exam: Present: normal affect, normal mood Skin exam: Present: warm, dry, intact, normal color. Absent: rash Course Vital Signs 01/03/18 01/03/18 12:42 15:27 Temperature 98.1 F Pulse Rate 112 H 98 Respiratory 18 18 Rate Blood Pressure 137/100 120/84 O2 Sat by Pulse 100 99 Oximetry - Reevaluation(s) Reevaluation #1: 01/03/18 15:41 Medical records thoroughly reviewed Reevaluation #2: 01/03/18 15:41 Patient has adequate pain control Medical Decision Making - Medical Decision Making 22-year-old female the ER for evaluation, boxed medical history will admit for patient's neurologist to see and treat patient is showing signs and symptoms of DKA. We'll start on insulin DKA treatment - Lab Data Result diagrams: 01/03/18 13:46 01/03/18 13:46 Lab Results 01/03/18 01/03/18 01/03/18 Range/Units 13:46 13:46 13:46 WBC 13.3 H (3.8-10.6) k/uL RBC 5.12 (3.80-5.40) m/uL Hgb 14.5 (11.4-16.0) gm/dL Hct 43.9 (34.0-46.0) % MCV 85.8 (80.0-100.0) fL MCH 28.3 (25.0-35.0) pg MCHC 32.9 (31.0-37.0) g/dL RDW 12.7 (11.5-15.5) % Plt Count 590 H (150-450) k/uL Neutrophils % 71 % Lymphocytes % 23 % Monocytes % 3 % Eosinophils % 1 % Basophils % 1 % Neutrophils # 9.5 H (1.3-7.7) k/uL Lymphocytes # 3.1 (1.0-4.8) k/uL Monocytes # 0.4 (0-1.0) k/uL Eosinophils # 0.2 (0-0.7) k/uL Basophils # 0.1 (0-0.2) k/uL PT (9.0-12.0) sec INR (<1.2) APTT (22.0-30.0) sec Sodium (137-145) mmol/L Potassium (3.5-5.1) mmol/L Chloride (98-107) mmol/L Carbon Dioxide (22-30) mmol/L Anion Gap mmol/L BUN (7-17) mg/dL Creatinine (0.52-1.04) mg/dL Est GFR (CKD-EPI)AfAm (>60 ml/min/1.73 sqM) Est GFR (CKD-EPI)NonAf (>60 ml/min/1.73 sqM) Glucose (74-99) mg/dL Calcium (8.4-10.2) mg/dL Phosphorus (2.5-4.5) mg/dL Magnesium (1.6-2.3) mg/dL Total Bilirubin (0.2-1.3) mg/dL AST (14-36) U/L ALT (9-52) U/L Alkaline Phosphatase (38-126) U/L Ammonia 19 (<30) umol/L Total Creatine Kinase 24 L (30-135) U/L CK-MB (CK-2) <0.2 (0.0-2.4) ng/mL CK-MB (CK-2) Rel Index Troponin I <0.012 (0.000-0.034) ng/mL Total Protein (6.3-8.2) g/dL Albumin (3.5-5.0) g/dL Lipase (23-300) U/L Urine Color Urine Appearance (Clear) Urine pH (5.0-8.0) Ur Specific [place] (1.001-1.035) Urine Protein (Negative) Urine Glucose (UA) (Negative) Urine Ketones (Negative) Urine Blood (Negative) Urine Nitrite (Negative) Urine Bilirubin (Negative) Urine Urobilinogen (<2.0) mg/dL Ur Leukocyte Esterase (Negative) Urine RBC (0-5) /hpf Urine WBC (0-5) /hpf Ur Squamous Epith Cells (0-4) /hpf Urine Mucus (None) /hpf Salicylates mg/dL Urine Opiates Screen (NotDetected) Ur Oxycodone Screen (NotDetected) Urine Methadone Screen (NotDetected) Ur Propoxyphene Screen (NotDetected) Acetaminophen ug/mL Ur Barbiturates Screen (NotDetected) U Tricyclic Antidepress (NotDetected) Ur Phencyclidine Scrn (NotDetected) Ur Amphetamines Screen (NotDetected) U Methamphetamines Scrn (NotDetected) U Benzodiazepines Scrn (NotDetected) Urine Cocaine Screen (NotDetected) U Marijuana (THC) Screen (NotDetected) Serum Alcohol mg/dL Acetone, Qual (Negative) 01/03/18 01/03/18 01/03/18 Range/Units 13:46 13:46 Unknown WBC (3.8-10.6) k/uL RBC (3.80-5.40) m/uL Hgb (11.4-16.0) gm/dL Hct (34.0-46.0) % MCV (80.0-100.0) fL MCH (25.0-35.0) pg MCHC (31.0-37.0) g/dL RDW (11.5-15.5) % Plt Count (150-450) k/uL Neutrophils % % Lymphocytes % % Monocytes % % Eosinophils % % Basophils % % Neutrophils # (1.3-7.7) k/uL Lymphocytes # (1.0-4.8) k/uL Monocytes # (0-1.0) k/uL Eosinophils # (0-0.7) k/uL Basophils # (0-0.2) k/uL PT 10.0 (9.0-12.0) sec INR 1.0 (<1.2) APTT 23.9 (22.0-30.0) sec Sodium 139 (137-145) mmol/L Potassium 4.6 (3.5-5.1) mmol/L Chloride 102 (98-107) mmol/L Carbon Dioxide 17 L (22-30) mmol/L Anion Gap 20 mmol/L BUN 12 (7-17) mg/dL Creatinine 0.38 L (0.52-1.04) mg/dL Est GFR (CKD-EPI)AfAm >90 (>60 ml/min/1.73 sqM) Est GFR (CKD-EPI)NonAf >90 (>60 ml/min/1.73 sqM) Glucose 367 H (74-99) mg/dL Calcium 10.3 H (8.4-10.2) mg/dL Phosphorus 3.5 (2.5-4.5) mg/dL Magnesium 1.4 L (1.6-2.3) mg/dL Total Bilirubin 0.5 (0.2-1.3) mg/dL AST 136 H (14-36) U/L ALT 100 H (9-52) U/L Alkaline Phosphatase 195 H (38-126) U/L Ammonia (<30) umol/L Total Creatine Kinase (30-135) U/L CK-MB (CK-2) (0.0-2.4) ng/mL CK-MB (CK-2) Rel Index Troponin I (0.000-0.034) ng/mL Total Protein 8.1 (6.3-8.2) g/dL Albumin 4.9 (3.5-5.0) g/dL Lipase 44 (23-300) U/L Urine Color Yellow Urine Appearance Cloudy H (Clear) Urine pH 6.0 (5.0-8.0) Ur Specific [place] 1.026 (1.001-1.035) Urine Protein Trace H (Negative) Urine Glucose (UA) 4+ H (Negative) Urine Ketones 4+ H (Negative) Urine Blood Negative (Negative) Urine Nitrite Negative (Negative) Urine Bilirubin Negative (Negative) Urine Urobilinogen <2.0 (<2.0) mg/dL Ur Leukocyte Esterase Large H (Negative) Urine RBC 7 H (0-5) /hpf Urine WBC 25 H (0-5) /hpf Ur Squamous Epith Cells 3 (0-4) /hpf Urine Mucus Rare H (None) /hpf Salicylates <1.0 mg/dL Urine Opiates Screen Not Detected (NotDetected) Ur Oxycodone Screen Not Detected (NotDetected) Urine Methadone Screen Not Detected (NotDetected) Ur Propoxyphene Screen Not Detected (NotDetected) Acetaminophen <10.0 ug/mL Ur Barbiturates Screen Not Detected (NotDetected) U Tricyclic Antidepress Not Detected (NotDetected) Ur Phencyclidine Scrn Not Detected (NotDetected) Ur Amphetamines Screen Not Detected (NotDetected) U Methamphetamines Scrn Not Detected (NotDetected) U Benzodiazepines Scrn Not Detected (NotDetected) Urine Cocaine Screen Not Detected (NotDetected) U Marijuana (THC) Screen Detected H (NotDetected) Serum Alcohol <10 mg/dL Acetone, Qual Positive (Negative) - EKG Data -: EKG Interpreted by Me (EKG shows sinus tachycardia rate 106, VA 1:30, QRS 80 , QTC 438) EKG shows normal: sinus rhythm Rate: tachycardia Disposition Clinical Impression: Transaminitis, Nausea and vomiting, Intractable pain, DKA (diabetic ketoacidoses) Disposition: ADMITTED IP TO THIS [facility] Condition: Fair Is patient prescribed a controlled substance at d/c from ED?: No Referrals: Deborah Stearns MD [Primary Care Provider] - 1-2 days
[2018-01-03 14:12] LABS: Basophils # (A) 0.1 k/uL (0-0.2); Basophils % (A) 1 %; Eosinophils # (A) 0.2 k/uL (0-0.7); Eosinophils % (A) 1 %; HCT 43.9 % (34.0-46.0); HGB 14.5 gm/dL (11.4-16.0); Lymphocytes # (A) 3.1 k/uL (1.0-4.8); Lymphocytes % (A) 23 %; MCH 28.3 pg (25.0-35.0); MCHC 32.9 g/dL (31.0-37.0); MCV 85.8 fL (80.0-100.0); Mean Platelet Volume 6.2; Monocytes # (A) 0.4 k/uL (0-1.0); Monocytes % (A) 3 %; Neutrophils # (A) 9.5 k/uL (1.3-7.7); Neutrophils % (A) 71 %; Platelet Count 590 k/uL (150-450); RBC 5.12 m/uL (3.80-5.40); RDW 12.7 % (11.5-15.5); WBC 13.3 k/uL (3.8-10.6)
[2018-01-03] MEDS ORDERED: MORPHINE SULFATE 4 MG/ML SYRINGE IVP STA (14:17)
[2018-01-03 14:18] LABS: Partial Thromboplastin Time 23.9 sec (22.0-30.0)
[2018-01-03 14:21] LABS: ALT 100 U/L (9-52); AST 136 U/L (14-36); Acetaminophen <10.0 ug/mL; Albumin 4.9 g/dL (3.5-5.0); Alcohol <10 mg/dL; Alkaline Phosphatase 195 U/L (38-126); Anion Gap 20 mmol/L; Blood Urea Nitrogen 12 mg/dL (7-17); Calcium 10.3 mg/dL (8.4-10.2); Carbon Dioxide 17 mmol/L (22-30); Chloride 102 mmol/L (98-107); Glucose 367 mg/dL (74-99); Lipase 44 U/L (23-300); Magnesium 1.4 mg/dL (1.6-2.3); Phosphorus 3.5 mg/dL (2.5-4.5); Potassium 4.6 mmol/L (3.5-5.1); Salicylate <1.0 mg/dL; Sodium 139 mmol/L (137-145); Total Bilirubin 0.5 mg/dL (0.2-1.3); Total Protein 8.1 g/dL (6.3-8.2)
[2018-01-03 14:32] LABS: Creatine Kinase 24 U/L (30-135)
[2018-01-03 14:44] LABS: Creatine Kinase MB <0.2 ng/mL (0.0-2.4); Troponin I <0.012 ng/mL (0.000-0.034)
[2018-01-03] MEDS ORDERED: DIAZEPAM 5 MG/ML 2 ML INJ IVP STA (14:59)
[2018-01-03] MEDS ORDERED: DIAZEPAM 5 MG/ML 2 ML INJ IVP PRN (14:59)
[2018-01-03 15:20] LABS: Appearance,Urine Cloudy (Clear); Bilirubin,Urine Negative (Negative); Blood,Urine Negative (Negative); Color,Urine Yellow; Glucose,Urine (UA) 4+ (Negative); Leukocyte Esterase,Urine Large (Negative); Mucus,Urine Rare /hpf; Nitrite,Urine Negative (Negative); Protein,Urine Trace (Negative); RBC,Urine 7 /hpf (0-5); Specific Gravity,Urine 1.026 (1.001-1.035); Squamous Epithelial Cell,Urine 3 /hpf (0-4); Urobilinogen,Urine <2.0 mg/dL (<2.0); WBC,Urine 25 /hpf (0-5)
[2018-01-03 15:21] LABS: Ketones,Urine 4+ (Negative)
[2018-01-03 15:40] LABS: Amphetamine Screen,Urine Not Detected (NotDetected); Barbiturate Screen,Urine Not Detected (NotDetected); Benzodiazepines Screen,Urine Not Detected (NotDetected); Cocaine Screen,Urine Not Detected (NotDetected); Methadone Screen, Urine Not Detected (NotDetected); Opiate Screen,Urine Not Detected (NotDetected); Oxycodone Screen, Urine Not Detected (NotDetected); Phencyclidine Screen,Urine Not Detected (NotDetected); Tricyclic Antidepressant,Urine Not Detected (NotDetected); Urn Cannabinoid Scrn Detected (NotDetected)
[2018-01-03] MEDS: MAGNESIUM SULFATE-D5W PMX 1 GM in DEXTROSE/WATER 1 100ML.BAG IVPB SCH ×2 (16:54→18:22)
[2018-01-03 18:34] LABS: Glucose,Whole Blood 310 mg/dL (75-99)
[2018-01-03] MEDS ORDERED: SODIUM CHLORIDE 0.9% 1,000 ML IV ONE (18:44)
[2018-01-03] MEDS: INSULIN REGULAR 100 UNIT in SODIUM CHLORIDE 0.9% 100 ML IV SCH (19:52)
[2018-01-03 20:02] LABS: HCG,Qualitative Serum Not Detected
[2018-01-03 20:04] LABS: Glucose,Whole Blood 204 mg/dL (75-99)
[2018-01-03 20:06] LABS: Anion Gap 11 mmol/L; Blood Urea Nitrogen 10 mg/dL (7-17); Carbon Dioxide 19 mmol/L (22-30); Chloride 108 mmol/L (98-107); Glucose 201 mg/dL (74-99); Potassium 3.5 mmol/L (3.5-5.1); Sodium 138 mmol/L (137-145)
[2018-01-03] MEDS: D5-0.45% NACL WITH KCL 20MEQ/L 1,000 ML IV SCH (20:41)
[2018-01-03] MEDS ORDERED: LORazepam 2 MG/ML INJ IV PRN (20:42)
--- NOTE | 2018-01-03 20:45 | P.HPIM ---
History of Present Illness The whole encounter included physical examination done in the presents of the bed side nurse Kierra This is a pleasant 22 years old female with past medical history of insulin- dependent diabetes mellitus, asthma, GERD, syncope, DKA And gastroparesis UTI. Her presents because of she has generalized pain all over and twitching all over also one month duration. Patient states that the twitching last is about 2 hours each time during which she is fully awake. Patient is been recently treated for her UTI with antibiotics but she cannot remember the name. Patient confirmed to me she was taking her medication until yesterday where she took her Lantus 26 units. However today she was not taking her insulin because she was not eating and when she came to the hospital and they told her she has DKA. Patient was complaining of from mild abdominal pain and tenderness, no rebound tenderness. Associated with nausea but no vomiting. Patient could not specify why she was not eating today but she just felt and everted from fluids In the emergency room she has mild leukocytosis of 13.3 K with hemoglobin 14.5 normal platelets. Patient sodium and potassium are within normal range, creatinine 0.38. Sugar high at 367. On admission patient got 2 L of IV fluids, Ativan, morphine and Valium 5 mg once with low magnesium at 1.4 and elevated liver enzymes which is similar to before. Depending on negative and UA is suggestive of infection urine toxicology was positive for marijuana. Alcohol level was negative and she has positive at stone. With elevated anion gap of 20 on admission patient was afebrile. Tachycardic. Blood pressure is stable Home medications including Lantus 26 units at bedtime and NovoLog 5 units before meals 3 times a day. Also in the emergency room there was suspicion for suicidal ideation, patient admits to history of depression but she states that she was misunderstood because she told them try other to rather than to be in such situation but she is telling me she didn't truly mean to kill herself. Patient also has history of hepatomegaly with elevated liver enzymes for more than one year and she's been evaluated by a GI and paraprofessional interpreter, most likely she has hepatomegaly secondary to uncontrolled diabetes. And she has liver biopsy done before Review of Systems CONSTITUTIONAL: No fever, no malaise, no fatigue. HEENT: No recent visual problems or hearing problems. Denied any sore throat. CARDIOVASCULAR: No orthopnea, PND, no palpitations, no syncope. PULMONARY: No shortness of breath, no cough, no hemoptysis. GASTROINTESTINAL: No diarrhea, no nausea, no vomiting, no abdominal pain. Normoactive bowel sounds. NEUROLOGICAL: No headaches, no weakness, no numbness. HEMATOLOGICAL: Denies any bleeding or petechiae. GENITOURINARY: Denies any burning micturition, frequency, or urgency. MUSCULOSKELETAL/RHEUMATOLOGICAL: Denies any joint pain, swelling, or any muscle pain. ENDOCRINE: Denies any polyuria or polydipsia. Past Medical History Past Medical History: Asthma, Diabetes Mellitus, GERD/Reflux, Syncope Additional Past Medical History / Comment(s): Pt recently admitted to [facility] on with DKA and elevated lactic acid, transaminitis, metabolic acidosis, glycogenic hepatology-she transferred to [facility] where she states they also diagnosed her with gastroparesis. Other Hx: Recent GI illness, recent UTI and completed antibiotic, IDDM type I, DKAs, syncope pt thinks related to hypoglycemia, back pain-bulging disc, L sided sciatica, ovarian cyst. History of Any Multi-Drug Resistant Organisms: MRSA Date of last positivie culture/infection: 03/2014 MDRO Source:: GROIN AREA Past Surgical History: Cholecystectomy Past Anesthesia/Blood Transfusion Reactions: No Reported Reaction Past Psychological History: Anxiety, Depression Smoking Status: Light tobacco smoker Past Alcohol Use History: None Reported Past Drug Use History: Marijuana - Past Family History Mother History Unknown: Yes Family Medical History: No Reported History Additional Family Medical History / Comment(s): Mother is healthy Father Family Medical History: Diabetes Mellitus Additional Family Medical History / Comment(s): Diabetes type II. Medications and Allergies Home Medications Medication Instructions Recorded Confirmed Type Insulin Aspart [NovoLOG See Protocol SQ ACHS 12/03/16 01/03/18 History (formulary)] Insulin Glargine [Lantus] 26 units SQ HS 02/21/17 01/03/18 History Ibuprofen [Motrin Ib] 800 mg PO TID PRN 12/02/17 01/03/18 History Insulin Aspart [NovoLOG 5 unit SQ AC-TID 12/02/17 01/03/18 History (formulary)] Cholecalciferol [Vitamin D3] 1,000 unit PO DAILY 01/03/18 01/03/18 History Cider Vinegar [Apple Cider Vinegar] 300 mg PO DAILY 01/03/18 01/03/18 History Gabapentin [Neurontin] 100 mg PO TID 01/03/18 01/03/18 History Levothyroxine Sodium [Synthroid] 25 mcg PO DAILY 01/03/18 01/03/18 History Lidocaine 4% Cream [Lmx 4] 1 applic TOPICAL TID 01/03/18 01/03/18 History Loperamide [Imodium] 2 mg PO QID 01/03/18 01/03/18 History Multivitamins, Thera [Multivitamin 1 tab PO DAILY 01/03/18 01/03/18 History (formulary)] Valerian Root 100 mg PO DAILY 01/03/18 01/03/18 History traZODone HCL [Desyrel] 100 mg PO HS 01/03/18 01/03/18 History Allergies Allergy/AdvReac Type Severity Reaction Status Date / Time No Known Allergies Allergy Unverified 01/03/18 14:15 Physical Exam Vitals: Vital Signs Temp Pulse Resp BP Pulse Ox 01/03/18 18:58 98.1 F 97 18 134/81 100 01/03/18 18:30 97 18 134/81 100 01/03/18 16:58 104 H 18 116/77 98 01/03/18 15:27 98 18 120/84 99 01/03/18 12:42 98.1 F 112 H 18 137/100 100 Intake and Output 01/03/18 01/03/18 01/03/18 06:59 14:59 22:59 Other: Weight 54.34 kg GENERAL: The patient is alert and oriented x3, not in any acute distress. Well developed, well nourished. HEENT: Pupils are round and equally reacting to light. EOMI. No scleral icterus. No conjunctival pallor. Normocephalic, atraumatic. No pharyngeal erythema. No thyromegaly. CARDIOVASCULAR: S1 and S2 present. No murmurs, rubs, or gallops. PULMONARY: Chest is clear to auscultation, no wheezing or crackles. -ABDOMEN: Soft, nontender, nondistended, normoactive bowel sounds. No palpable organomegaly. Mild abdominal tenderness MUSCULOSKELETAL: No joint swelling or deformity. EXTREMITIES: No cyanosis, clubbing, or pedal edema. NEUROLOGICAL: Gross neurological examination did not reveal any focal deficits. SKIN: No rashes. Results CBC & Chem 7: 01/03/18 13:46 01/03/18 13:46 Labs: Abnormal Lab Results - Last 24 Hours (Table) 01/03/18 01/03/18 01/03/18 Range/Units 13:46 13:46 13:46 WBC 13.3 H (3.8-10.6) k/uL Plt Count 590 H (150-450) k/uL Neutrophils # 9.5 H (1.3-7.7) k/uL Carbon Dioxide 17 L (22-30) mmol/L Creatinine 0.38 L (0.52-1.04) mg/dL Glucose 367 H (74-99) mg/dL POC Glucose (mg/dL) (75-99) mg/dL Calcium 10.3 H (8.4-10.2) mg/dL Magnesium 1.4 L (1.6-2.3) mg/dL AST 136 H (14-36) U/L ALT 100 H (9-52) U/L Alkaline Phosphatase 195 H (38-126) U/L Total Creatine Kinase 24 L (30-135) U/L Urine Appearance (Clear) Urine Protein (Negative) Urine Glucose (UA) (Negative) Urine Ketones (Negative) Ur Leukocyte Esterase (Negative) Urine RBC (0-5) /hpf Urine WBC (0-5) /hpf Urine Mucus (None) /hpf U Marijuana (THC) Screen (NotDetected) 01/03/18 01/03/18 Range/Units 18:29 Unknown WBC (3.8-10.6) k/uL Plt Count (150-450) k/uL Neutrophils # (1.3-7.7) k/uL Carbon Dioxide (22-30) mmol/L Creatinine (0.52-1.04) mg/dL Glucose (74-99) mg/dL POC Glucose (mg/dL) 310 H (75-99) mg/dL Calcium (8.4-10.2) mg/dL Magnesium (1.6-2.3) mg/dL AST (14-36) U/L ALT (9-52) U/L Alkaline Phosphatase (38-126) U/L Total Creatine Kinase (30-135) U/L Urine Appearance Cloudy H (Clear) Urine Protein Trace H (Negative) Urine Glucose (UA) 4+ H (Negative) Urine Ketones 4+ H (Negative) Ur Leukocyte Esterase Large H (Negative) Urine RBC 7 H (0-5) /hpf Urine WBC 25 H (0-5) /hpf Urine Mucus Rare H (None) /hpf U Marijuana (THC) Screen Detected H (NotDetected) Assessment and Plan Assessment: DKA Type 1 diabetes mellitus, uncontrolled UTI Possible suicidal ideation Glycogenic hepato-denise Plan: This is a 22 years old female who presents with DKA and UTI. We'll continue with insulin drip as per protocol. Start with antibiotic ceftriaxone. Continue with IV fluids. Also place patient on suicidal precaution with one-to -one sitter and discussed with the staff patient may psychiatric evaluation. Medication and labs were reviewed. Continue same medication. Continue with symptomatic treatment. Resume home medication. Mitral lytes and vitals. Management lites as per protocols. GI and DVT prophylaxis. Further recommendations based on the clinical course of the patient DVT prophylaxis: Subcutaneous heparin GI prophylaxis. Pepcid Prognosis is guarded
[2018-01-03 20:52] LABS: Glucose,Whole Blood 102 mg/dL (75-99)
[2018-01-03 21:51] LABS: Glucose,Whole Blood 104 mg/dL (75-99)
[2018-01-03] MEDS ORDERED: traZODone HCL 100 MG TAB PO SCH (22:00)
[2018-01-03] MEDS: FAMOTIDINE 20 MG/2 ML VIAL IV SCH (22:06)
[2018-01-03] MEDS: HEPARIN SODIUM,PORCINE 5,000 UNIT/ML 1 ML VIAL SQ SCH (22:06)
[2018-01-03] MEDS: GABAPENTIN 100 MG CAP PO SCH (22:32)
[2018-01-03] MEDS: CHOLECALCIFEROL 1,000 UNIT TAB PO SCH (22:32)
[2018-01-03 22:54] VITALS: BMI 19.9
[2018-01-03 23:01] LABS: Glucose,Whole Blood 139 mg/dL (75-99)
[2018-01-03 23:53] LABS: Glucose,Whole Blood 165 mg/dL (75-99)
[2018-01-04 00:25] LABS: Anion Gap 12 mmol/L; Blood Urea Nitrogen 8 mg/dL (7-17); Carbon Dioxide 18 mmol/L (22-30); Chloride 109 mmol/L (98-107); Glucose 169 mg/dL (74-99); Potassium 3.7 mmol/L (3.5-5.1); Sodium 139 mmol/L (137-145)
[2018-01-04 00:44] LABS: Glucose,Whole Blood 205 mg/dL (75-99)
[2018-01-04] MEDS: SODIUM CHLORIDE 0.9% 1,000 ML IV SCH ×3 (00:56→09:25)
[2018-01-04 01:45] LABS: Glucose,Whole Blood 241 mg/dL (75-99)
[2018-01-04] MEDS: D5-0.45% NACL WITH KCL 20MEQ/L 1,000 ML IV SCH ×2 (02:03→02:55)
[2018-01-04] MEDS ORDERED: Magnesium Replacement Protocol 1 EACH MISC MISCELLANE PRN (02:32)
[2018-01-04] MEDS ORDERED: Potassium Replacement Protocol 1 EACH MISC MISCELLANE PRN (02:32)
[2018-01-04 02:48] LABS: Glucose,Whole Blood 223 mg/dL (75-99)
[2018-01-04] MEDS: INSULIN REGULAR 100 UNIT in SODIUM CHLORIDE 0.9% 100 ML IV SCH ×2 (02:53→05:26)
[2018-01-04 03:43] LABS: Glucose,Whole Blood 164 mg/dL (75-99)
[2018-01-04 04:06] LABS: Basophils # (A) 0.1 k/uL (0-0.2); Basophils % (A) 1 %; Eosinophils # (A) 0.4 k/uL (0-0.7); Eosinophils % (A) 4 %; HCT 37.1 % (34.0-46.0); HGB 12.1 gm/dL (11.4-16.0); Lymphocytes # (A) 4.1 k/uL (1.0-4.8); Lymphocytes % (A) 45 %; MCH 27.2 pg (25.0-35.0); MCHC 32.5 g/dL (31.0-37.0); MCV 83.7 fL (80.0-100.0); Mean Platelet Volume 6.3; Monocytes # (A) 0.4 k/uL (0-1.0); Monocytes % (A) 5 %; Neutrophils # (A) 4.1 k/uL (1.3-7.7); Neutrophils % (A) 44 %; Platelet Count 403 k/uL (150-450); RBC 4.43 m/uL (3.80-5.40); RDW 13.1 % (11.5-15.5); WBC 9.2 k/uL (3.8-10.6)
[2018-01-04 04:18] LABS: ALT 82 U/L (9-52); AST 113 U/L (14-36); Albumin 3.5 g/dL (3.5-5.0); Alkaline Phosphatase 134 U/L (38-126); Anion Gap 7 mmol/L; Bilirubin, Delta 0.2 mg/dL (0.0-0.2); Bilirubin,Unconjugated 0.1 mg/dL (0.0-1.1); Blood Urea Nitrogen 6 mg/dL (7-17); Calcium 8.8 mg/dL (8.4-10.2); Carbon Dioxide 21 mmol/L (22-30); Chloride 110 mmol/L (98-107); Glucose 168 mg/dL (74-99); Magnesium 1.6 mg/dL (1.6-2.3); Potassium 3.7 mmol/L (3.5-5.1); Sodium 138 mmol/L (137-145); Total Bilirubin 0.3 mg/dL (0.2-1.3); Total Protein 6.1 g/dL (6.3-8.2)
[2018-01-04 04:19] LABS: Anion Gap 7 mmol/L; Blood Urea Nitrogen 7 mg/dL (7-17); Calcium 8.8 mg/dL (8.4-10.2); Carbon Dioxide 20 mmol/L (22-30); Chloride 111 mmol/L (98-107); Glucose 169 mg/dL (74-99); Potassium 3.8 mmol/L (3.5-5.1); Sodium 138 mmol/L (137-145)
[2018-01-04 05:00] LABS: Glucose,Whole Blood 285 mg/dL (75-99)
[2018-01-04] MEDS ORDERED: LEVOTHYROXINE 25 MCG TAB PO SCH (06:30)
[2018-01-04 06:47] LABS: Glucose,Whole Blood 260 mg/dL (75-99)
[2018-01-04] MEDS: MORPHINE SULFATE 4 MG/ML SYRINGE IVP PRN ×2 (08:25→13:16)
[2018-01-04 09:02] LABS: Glucose,Whole Blood 153 mg/dL (75-99)
[2018-01-04] MEDS: FAMOTIDINE 20 MG/2 ML VIAL IV SCH (09:24)
[2018-01-04] MEDS: GABAPENTIN 100 MG CAP PO SCH ×2 (09:24→10:06)
[2018-01-04] MEDS: HEPARIN SODIUM,PORCINE 5,000 UNIT/ML 1 ML VIAL SQ SCH ×2 (09:25→09:55)
[2018-01-04] MEDS ORDERED: SODIUM CHLORIDE 0.9% 1,000 ML IV SCH ×2 (09:30→09:45)
[2018-01-04] MEDS ORDERED: INSULIN NPH 300 UNIT/3 ML VIAL SQ ONE (09:45)
--- NOTE | 2018-01-04 10:48 | P.DS ---
Providers Date of admission: 01/03/18 15:00 Attending physician: Karina Teran Consults: 01/03/18 15:00 Consult Physician Routine Consulting Provider: Zunilda Rogers Consult Reason/Comments: Generalized twitching Do you want consulting provider notified?: Yes 01/03/18 20:44 Consult Physician Urgent Consulting Provider: Shekhar Odell Consult Reason/Comments: suicidal ideation Do you want consulting provider notified?: Yes Primary care physician: [facility] Course: Patient was admitted for the diabetic ketoacidosis. Anion gap resolved patient will be transitioned to subcutaneous insulin with an NPH now patient normally uses Lantus at night. IV fluids will be switched to normal saline. Patient was complaining of pain all over the body which appears to be chronic. Patient may have some chronic pain syndrome gabapentin dose will be increased opiates will not be beneficial. Patient has one-on-one sitter although patient denied any suicidal ideations to me. Once evaluated by psychiatric and cleared by psychiatric patient will be discharged today. Patient urine is abnormal although I do not believe patient has UTI patient may have asymptomatic bacteriuria will not require any antibiotics upon discharge PHYSICAL EXAMINATION: GENERAL: The patient is alert and oriented x3, not in any acute distress. Well developed, well nourished. HEENT: Pupils are round and equally reacting to light. EOMI. No scleral icterus. No conjunctival pallor. Normocephalic, atraumatic. No pharyngeal erythema. No thyromegaly. CARDIOVASCULAR: S1 and S2 present. No murmurs, rubs, or gallops. PULMONARY: Chest is clear to auscultation, no wheezing or crackles. ABDOMEN: Soft, nontender, nondistended, normoactive bowel sounds. No palpable organomegaly. MUSCULOSKELETAL: No joint swelling or deformity. EXTREMITIES: No cyanosis, clubbing, or pedal edema. NEUROLOGICAL: Gross neurological examination did not reveal any focal deficits. SKIN: No rashes. -Diverticular acidosis -Type 1 diabetes mellitus uncontrolled blood sugars due to noncompliance -Asymptomatic bacteriuria no urinary tract infection -Chronic pain syndrome -Diabetic neuropathy neuropathy -Gastroesophageal reflux disease -Asthma without any acute exacerbation Patient Condition at Discharge: Fair Plan - Discharge Summary Discharge Rx Participant: No New Discharge Prescriptions: No Action Insulin Aspart [NovoLOG (formulary)] See Protocol SQ ACHS Insulin Glargine [Lantus] 26 units SQ HS Insulin Aspart [NovoLOG (formulary)] 5 unit SQ AC-TID Ibuprofen [Motrin Ib] 800 mg PO TID PRN PRN Reason: Pain Valerian Root 100 mg PO DAILY Loperamide [Imodium] 2 mg PO QID Lidocaine 4% Cream [Lmx 4] 1 applic TOPICAL TID Levothyroxine Sodium [Synthroid] 25 mcg PO DAILY Cider Vinegar [Apple Cider Vinegar] 300 mg PO DAILY traZODone HCL [Desyrel] 100 mg PO HS Multivitamins, Thera [Multivitamin (formulary)] 1 tab PO DAILY Gabapentin [Neurontin] 100 mg PO TID Cholecalciferol [Vitamin D3] 1,000 unit PO DAILY Discharge Medication List Insulin Aspart [NovoLOG (formulary)] See Protocol SQ ACHS 12/03/16 [History] Insulin Glargine [Lantus] 26 units SQ HS 02/21/17 [History] Ibuprofen [Motrin Ib] 800 mg PO TID PRN 12/02/17 [History] Insulin Aspart [NovoLOG (formulary)] 5 unit SQ AC-TID 12/02/17 [History] Cholecalciferol [Vitamin D3] 1,000 unit PO DAILY 01/03/18 [History] Cider Vinegar [Apple Cider Vinegar] 300 mg PO DAILY 01/03/18 [History] Gabapentin [Neurontin] 100 mg PO TID 01/03/18 [History] Levothyroxine Sodium [Synthroid] 25 mcg PO DAILY 01/03/18 [History] Lidocaine 4% Cream [Lmx 4] 1 applic TOPICAL TID 01/03/18 [History] Loperamide [Imodium] 2 mg PO QID 01/03/18 [History] Multivitamins, Thera [Multivitamin (formulary)] 1 tab PO DAILY 01/03/18 [History ] Valerian Root 100 mg PO DAILY 01/03/18 [History] traZODone HCL [Desyrel] 100 mg PO HS 01/03/18 [History] Follow up Appointment(s)/Referral(s): Deborah Stearns MD [Primary Care Provider] - 1-2 days
[2018-01-04 11:08] VITALS: RESP 18
[2018-01-04 11:38] LABS: Glucose,Whole Blood 297 mg/dL (75-99)
[2018-01-04] MEDS: CHOLECALCIFEROL 1,000 UNIT TAB PO SCH (11:47)
[2018-01-04] MEDS ORDERED: INSULIN NPH 300 UNIT/3 ML VIAL SQ SCH (12:30)
[2018-01-04] MEDS ORDERED: INSULIN ASPART 100 UNIT/ML 1 ML 10 ML VIAL SQ SCH ×2 (12:30→17:30)
[2018-01-04] MEDS: INSULIN ASPART 100 UNIT/ML 1 ML 10 ML VIAL SQ SCH ×2 (12:46→18:13)
[2018-01-04] MEDS ORDERED: IPRATROPIUM-ALBUTEROL 3 ML NEB INHALATION PRN (12:52)
--- NOTE | 2018-01-04 14:27 | CONS ---
CONSULTATION DATE OF SERVICE/DICTATION: 01/04/2018. IDENTIFYING DATA: This patient is a 22-year-old female who was admitted to the hospital with the complaint of having chronic pain, she was found to be in DKA. Apparently in the emergency room, she made a statement that indicated she may be having suicidal ideation. HISTORY OF PRESENT ILLNESS: Apparently the patient made a statement in the emergency room that seem to be suicidal in nature. She has stated to both internal medicine physicians that have seen her that this was a misunderstanding and she repeats the same to me. She states that she does not have any suicidal ideation, intent, or plan. She is reporting no homicidal ideation, intent, or plan. She is endorsing no auditory or visual hallucinations or any specific delusions. She endorses no history of hypomanic or manic episodes. She states that her primary care physician has had her on Cymbalta in the past, but this was discontinued after a short trial and just a few weeks later she was placed on what appears to be trazodone. She states she does not like this medication and plans to discontinue it. It appears her Neurontin may have been increased during the course of this hospitalization. PAST PSYCHIATRIC HISTORY: No prior inpatient psychiatric care. No history of suicide attempts. She has no scheduled outpatient care. PAST MEDICAL HISTORY: Refer to the [facility] Medicine [facility] CHEMICAL DEPENDENCY HISTORY: None, reported. MENTAL STATUS EXAM: The patient is alert. She is seated upright in bed. She is dressed in hospital attire. She is pleasant and cooperative. Eye contact is appropriate. Speech is fluent, spontaneous and nonpressured. She denies having any suicidal or homicidal ideation, intent, or plan. She is endorsing no auditory or visual hallucinations. There is no observed evidence of psychosis. She demonstrates no tangential thinking, loose associations or flight of ideas. She does not appear hypomanic or manic. She is oriented to person, place, and date. She demonstrates no verbal or physical aggressiveness. She appears to be in no acute distress. During the session, she gets up and walks about the room without any difficulty. IMPRESSIONS: Depression unspecified, rule out major depressive disorder. PLAN OF TREATMENT: The patient is does not require inpatient psychiatric care. There appears to be no imminent safety risk. She plans to discontinue the trazodone, which is permissible. She is encouraged to work with an individual counselor. She offered some resistance to this, but again she is encouraged. She is also encouraged to schedule with a psychiatrist for outpatient evaluation. She states she already goes to the [facility] for Endocrinology and she is encouraged to seek out psychiatric help at that facility as well as she will more likely be able to schedule in timely manner. ALEXYS / EMILY: [id number] /
[2018-01-04 15:17] VITALS: BP 129/71; TEMP 97.9
--- NOTE | 2018-01-04 15:52 | P.PN ---
Subjective Patient is admitted with the acute pancreatitis is clinically doing better. The IV fluids patient was started on full liquid diet patient will be resumed on oral medications Dilaudid will be discontinued. Patient also still complaining of abdominal pain his abdomen is soft. Constitutional: Denied any fatigue denied any fever. Cardio vascular: denied any chest pain, palpitations Gastrointestinal denied any nausea vomiting Pulmonary: Denied any shortness of breath cough Neurologic denied any new focal deficits Objective - Vital Signs Vital signs: Vital Signs Temp 97.9 F 01/04/18 11:45 Pulse 99 01/04/18 11:45 Resp 18 01/04/18 11:45 BP 129/71 01/04/18 11:45 Pulse Ox 97 01/04/18 08:15 Intake & Output 01/03/18 01/04/18 01/04/18 18:59 06:59 18:59 Intake Total 2410.000 1559.067 Balance 2410.000 1559.067 Weight 54.34 kg 58.3 kg Intake: Intake, IV Titration 2110.000 659.067 Amount D5-0.45% NaCl with KCl 600 20Meq/l 1,000 ml @ 150 mls/hr IV .[id number] JAMAL Rx# :[id number] Insulin Regular 100 unit 110.000 9.067 In Sodium Chloride 0.9% 100 ml @ 0.1 UNITS/KG/HR 5.48 mls/hr IV .[id number] JAMAL Rx#:[id number] Magnesium Sulfate-D5w Pmx 1100 1 gm In Dextrose/Water 1 100ml.bag @ 100 mls/hr IVPB Q1H JAMAL Rx#: [id number] Sodium Chloride 0.9% 1, 200 000 ml @ 200 mls/hr IV . Q5H JAMAL Rx#:[id number] Sodium Chloride 0.9% 1, 600 000 ml @ 75 mls/hr IV . [id number] JAMAL Rx#:[id number] cefTRIAXone 1,000 mg In 100 50 Sodium Chloride 0.9% 50 ml @ 100 mls/hr IVPB Q24HR JAMAL Rx#:[id number] Oral 300 900 Other: Voiding Method Toilet # Voids 1 - Exam PHYSICAL EXAMINATION: GENERAL: The patient is alert and oriented x3, not in any acute distress. Obese HEENT: Pupils are round and equally reacting to light. EOMI. No scleral icterus. No conjunctival pallor. Normocephalic, atraumatic. No pharyngeal erythema. No thyromegaly. CARDIOVASCULAR: S1 and S2 present. No murmurs, rubs, or gallops. PULMONARY: Chest is clear to auscultation, no wheezing or crackles. ABDOMEN: Soft, nontender, nondistended, normoactive bowel sounds. No palpable organomegaly. MUSCULOSKELETAL: No joint swelling or deformity. EXTREMITIES: No cyanosis, clubbing, or pedal edema. NEUROLOGICAL: Gross neurological examination did not reveal any focal deficits. SKIN: No rashes. - Labs CBC & Chem 7: 01/04/18 03:45 01/04/18 03:45 Labs: Abnormal Lab Results - Last 24 Hours (Table) 01/03/18 01/03/18 01/03/18 Range/Units 18:29 19:35 19:35 Chloride 108 H (98-107) mmol/L Carbon Dioxide 19 L (22-30) mmol/L BUN (7-17) mg/dL Creatinine 0.31 L (0.52-1.04) mg/dL Glucose 201 H (74-99) mg/dL POC Glucose (mg/dL) 310 H (75-99) mg/dL Phosphorus 2.2 L (2.5-4.5) mg/dL AST (14-36) U/L ALT (9-52) U/L Alkaline Phosphatase (38-126) U/L Total Protein (6.3-8.2) g/dL 01/03/18 01/03/18 01/03/18 Range/Units 19:43 20:51 21:50 Chloride (98-107) mmol/L Carbon Dioxide (22-30) mmol/L BUN (7-17) mg/dL Creatinine (0.52-1.04) mg/dL Glucose (74-99) mg/dL POC Glucose (mg/dL) 204 H 102 H 104 H (75-99) mg/dL Phosphorus (2.5-4.5) mg/dL AST (14-36) U/L ALT (9-52) U/L Alkaline Phosphatase (38-126) U/L Total Protein (6.3-8.2) g/dL 01/03/18 01/03/18 01/03/18 Range/Units 22:59 23:49 23:52 Chloride 109 H (98-107) mmol/L Carbon Dioxide 18 L (22-30) mmol/L BUN (7-17) mg/dL Creatinine 0.34 L (0.52-1.04) mg/dL Glucose 169 H (74-99) mg/dL POC Glucose (mg/dL) 139 H 165 H (75-99) mg/dL Phosphorus (2.5-4.5) mg/dL AST (14-36) U/L ALT (9-52) U/L Alkaline Phosphatase (38-126) U/L Total Protein (6.3-8.2) g/dL 01/04/18 01/04/18 01/04/18 Range/Units 00:42 01:44 02:46 Chloride (98-107) mmol/L Carbon Dioxide (22-30) mmol/L BUN (7-17) mg/dL Creatinine (0.52-1.04) mg/dL Glucose (74-99) mg/dL POC Glucose (mg/dL) 205 H 241 H 223 H (75-99) mg/dL Phosphorus (2.5-4.5) mg/dL AST (14-36) U/L ALT (9-52) U/L Alkaline Phosphatase (38-126) U/L Total Protein (6.3-8.2) g/dL 01/04/18 01/04/18 01/04/18 Range/Units 03:42 03:45 03:45 Chloride 110 H 111 H (98-107) mmol/L Carbon Dioxide 21 L 20 L (22-30) mmol/L BUN 6 L (7-17) mg/dL Creatinine 0.30 L 0.28 L (0.52-1.04) mg/dL Glucose 168 H 169 H (74-99) mg/dL POC Glucose (mg/dL) 164 H (75-99) mg/dL Phosphorus (2.5-4.5) mg/dL AST 113 H (14-36) U/L ALT 82 H (9-52) U/L Alkaline Phosphatase 134 H (38-126) U/L Total Protein 6.1 L (6.3-8.2) g/dL 01/04/18 01/04/18 01/04/18 Range/Units 04:57 06:46 09:01 Chloride (98-107) mmol/L Carbon Dioxide (22-30) mmol/L BUN (7-17) mg/dL Creatinine (0.52-1.04) mg/dL Glucose (74-99) mg/dL POC Glucose (mg/dL) 285 H 260 H 153 H (75-99) mg/dL Phosphorus (2.5-4.5) mg/dL AST (14-36) U/L ALT (9-52) U/L Alkaline Phosphatase (38-126) U/L Total Protein (6.3-8.2) g/dL 01/04/18 Range/Units 11:18 Chloride (98-107) mmol/L Carbon Dioxide (22-30) mmol/L BUN (7-17) mg/dL Creatinine (0.52-1.04) mg/dL Glucose (74-99) mg/dL POC Glucose (mg/dL) 297 H (75-99) mg/dL Phosphorus (2.5-4.5) mg/dL AST (14-36) U/L ALT (9-52) U/L Alkaline Phosphatase (38-126) U/L Total Protein (6.3-8.2) g/dL Microbiology - Last 24 Hours (Table) 01/03/18 Unknown Urine Culture - Preliminary Urine,Voided Assessment and Plan Plan: Acute pancreatitis Chronic pancreatitis, status post PEG tube placement and pancreatic enzyme supplementation patient was started on diet will advance as tolerated possibility of discharge tomorrow Kidney cyst, patient informed and asked to follow-up as an outpatient History of asthma/COPD, hypertension, degenerative joint disease, sleep apnea on BiPAP. Chronic back pain
[2018-01-04] MEDS ORDERED: IPRATROPIUM-ALBUTEROL 3 ML NEB INHALATION SCH (16:00)
[2018-01-04] MEDS ORDERED: GABAPENTIN 100 MG CAP PO SCH (16:00)
[2018-01-04 16:52] LABS: Glucose,Whole Blood 191 mg/dL (75-99)
[2018-01-04 16:58] VITALS: PULSE 100
[2018-01-04] MEDS ORDERED: INSULIN DETEMIR 100 UNIT/ML 10 ML VIAL SQ SCH (21:00)
== END 2018-01-04 19:57 | disposition home or self-care (01) | DRG 639 ==
LOC: EC 12:31 → 3SCARD 15:00
PROVIDERS: ADMIT Hospitalist; ATTEND Hospitalist
DX: E10.10 Type 1 diabetes mellitus with ketoacidosis without coma (principal); K31.84 Gastroparesis; R16.0 Hepatomegaly, not elsewhere classified; E10.43 Type 1 diabetes mellitus with diabetic autonomic (poly)neuropathy; F17.200 Nicotine dependence, unspecified, uncomplicated; F32.9 Major depressive disorder, single episode, unspecified; F41.9 Anxiety disorder, unspecified; T38.3X6A Underdosing of insulin and oral hypoglycemic [antidiabetic] drugs, initial encounter; G89.4 Chronic pain syndrome; J45.909 Unspecified asthma, uncomplicated; K21.9 Gastro-esophageal reflux disease without esophagitis; M54.32 Sciatica, left side; N83.209 Unspecified ovarian cyst, unspecified side; R74.0 Nonspecific elevation of levels of transaminase and lactic acid dehydrogenase [LDH]; Z79.4 Long term (current) use of insulin; Z79.890 Hormone replacement therapy; Z79.899 Other long term (current) drug therapy; Z87.440 Personal history of urinary (tract) infections; Z86.14 Personal history of Methicillin resistant Staphylococcus aureus infection; Z83.3 Family history of diabetes mellitus; Z90.49 Acquired absence of other specified parts of digestive tract
CPT/HCPCS: 36415; 80048; 80051; 80053; 80076; 80306; 80320; 81001; 82009; 82140; 82550; 82553; 82565; 82947; 83036; 83520; 83690; 83735; 84100; 84484; 84520; 84703; 85025; 85610; 85730; 87086; 93005; 94640; 96361; 96365; 96366; 96375; 99284

== ENCOUNTER 2018-01-06 12:27 | Emergency (ER) | payer OTHER ==
[2018-01-06 12:56] VITALS: RESP 18; TEMP 98.7
[2018-01-06] MEDS ORDERED: KETOROLAC 60 MG/2 ML VIAL IM STA (13:17)
--- NOTE | 2018-01-06 13:26 | ED ---
General Adult HPI - General Chief complaint: Syncope Stated complaint: dizzy, pain all over Time Seen by Provider: 01/06/18 12:50 Source: patient, RN notes reviewed Mode of arrival: ambulatory Limitations: no limitations - History of Present Illness Initial comments: This is a 22-year-old female who presents emergency Department with a past medical history significant for diabetes comes in today with chronic pain which she states is been ongoing for 6 months and it's all over her body. Patient states today she came in because she has left-sided rib pain after having fallen and hit the counter. Patient states she's had multiple syncopal episodes and his been ongoing for weeks. Patient states she's already been evaluated in the hospital by her physician and is following up with neurology at this point time.. Patient denies any anterior chest pain. Patient denies any difficulty breathing shortness of breath. Patient states it does hurt to take a deep breath per patient denies any recent fever chills or cough. Patient states at this time all other symptoms she is being followed for her chronic and her primary are following her for them and she is going to follow- up with neurology as well. - Related Data Home Medications Medication Instructions Recorded Confirmed Insulin Aspart [NovoLOG See Protocol SQ ACHS 12/03/16 01/06/18 (formulary)] Insulin Glargine [Lantus] 26 units SQ HS 02/21/17 01/06/18 Ibuprofen [Motrin Ib] 800 mg PO TID PRN 12/02/17 01/06/18 Insulin Aspart [NovoLOG 5 unit SQ AC-TID 12/02/17 01/06/18 (formulary)] Cholecalciferol [Vitamin D3] 1,000 unit PO DAILY 01/03/18 01/06/18 Cider Vinegar [Apple Cider Vinegar] 300 mg PO DAILY 01/03/18 01/06/18 Levothyroxine Sodium [Synthroid] 25 mcg PO DAILY 01/03/18 01/06/18 Lidocaine 4% Cream [Lmx 4] 1 applic TOPICAL TID 01/03/18 01/06/18 Loperamide [Imodium] 2 mg PO QID 01/03/18 01/06/18 Multivitamins, Thera [Multivitamin 1 tab PO DAILY 01/03/18 01/06/18 (formulary)] Valerian Root 100 mg PO DAILY 01/03/18 01/06/18 traZODone HCL [Desyrel] 100 mg PO HS 01/03/18 01/06/18 Previous Rx's Medication Instructions Recorded Gabapentin [Neurontin] 200 mg PO TID #90 cap 01/04/18 Allergies Allergy/AdvReac Type Severity Reaction Status Date / Time No Known Allergies Allergy Verified 01/06/18 13:11 Review of Systems ROS Statement: Those systems with pertinent positive or pertinent negative responses have been documented in the HPI. ROS Other: All systems not noted in ROS Statement are negative. Past Medical History Past Medical History: Asthma, Diabetes Mellitus, GERD/Reflux, Syncope Additional Past Medical History / Comment(s): Pt recently admitted to [facility] on with DKA and elevated lactic acid, transaminitis, metabolic acidosis, glycogenic hepatology-she transferred to [facility] where she states they also diagnosed her with gastroparesis. Other Hx: Recent GI illness, recent UTI and completed antibiotic, IDDM type I, DKAs, syncope pt thinks related to hypoglycemia, back pain-bulging disc, L sided sciatica, ovarian cyst. History of Any Multi-Drug Resistant Organisms: MRSA Date of last positivie culture/infection: 03/2014 MDRO Source:: GROIN AREA Past Surgical History: Cholecystectomy Past Anesthesia/Blood Transfusion Reactions: No Reported Reaction Past Psychological History: Anxiety, Depression Smoking Status: Light tobacco smoker Past Alcohol Use History: None Reported Past Drug Use History: Marijuana - Past Family History Mother History Unknown: Yes Family Medical History: No Reported History Additional Family Medical History / Comment(s): "heart disease" Father Family Medical History: Diabetes Mellitus Additional Family Medical History / Comment(s): Diabetes type II.; Heart disease General Exam - General Exam Comments Initial Comments: GENERAL: Patient is well-developed and well-nourished. Patient is nontoxic and well- hydrated and is in mild distress. ENT: Neck is soft and supple. No significant lymphadenopathy is noted. Oropharynx is clear. Moist mucous membranes. Neck has full range of motion without eliciting any pain. EYES: The sclera were anicteric and conjunctiva were pink and moist. Extraocular movements were intact and pupils were equal round and reactive to light. Eyelids were unremarkable. PULMONARY: Unlabored respirations. Good breath sounds bilaterally. No audible rales rhonchi or wheezing was noted. CARDIOVASCULAR: There is a regular rate and rhythm without any murmurs gallops or rubs. Lateral ribs are tender to palpation there is no abrasion there is no ecchymosis there is no swelling ABDOMEN: Soft and nontender with normal bowel sounds. SKIN: Skin is clear with no lesions or rashes and otherwise unremarkable. NEUROLOGIC: Patient is alert and oriented x3. Cranial nerves II through XII are grossly intact. Motor and sensory are also intact. Normal speech, volume and content. Symmetrical smile. MUSCULOSKELETAL: Normal extremities with adequate strength and full range of motion. LYMPHATICS: No significant lymphadenopathy is noted PSYCHIATRIC: Normal psychiatric evaluation. Limitations: no limitations Course Vital Signs 01/06/18 12:52 Temperature 98.7 F Pulse Rate 105 H Respiratory 18 Rate Blood Pressure 127/91 O2 Sat by Pulse 100 Oximetry Medical Decision Making - Medical Decision Making EKG shows normal sinus rhythm at 90 bpm ID interval 250 QRS is 80 QT interval 338 QTC is 433 per patient's EKG shows no ST segment elevation or depression or T wave abnormalities are noted. Patient's chest x-ray shows no acute abnormality. Patient had no nursing blood cell to the emergency department. Patient states she is followed up with her physician and will follow-up with neurology and will now follow up with cardiology as well. - Lab Data Lab Results 01/06/18 Range/Units 15:19 POC Glucose (mg/dL) 266 H (75-99) mg/dL POC Glu Butcher Apprentice ID Sis Desai Disposition Clinical Impression: Chest wall contusion Disposition: HOME SELF-CARE Condition: Good Instructions: Chest Wall Pain (ED) Is patient prescribed a controlled substance at d/c from ED?: No Referrals: Deborah Stearns MD [Primary Care Provider] - 1-2 days Time of Disposition: 15:35
--- NOTE | 2018-01-06 14:25 | XR ---
EXAMINATION TYPE: XR chest 2V DATE OF EXAM: 01/06/2018 COMPARISON: 03/26/2017 HISTORY: Left-sided rib pain after a fall. TECHNIQUE: Frontal and lateral views of the chest are obtained. FINDINGS: There is no focal air space opacity, pleural effusion, or pneumothorax seen. The cardiac silhouette size is within normal limits. No displaced fracture is identified. IMPRESSION: No acute cardiopulmonary process. No acute displaced left rib fracture is seen. If there is further concern rib series could be performed.
[2018-01-06 15:20] LABS: Glucose,Whole Blood 266 mg/dL (75-99)
[2018-01-06 16:15] VITALS: BP 135/103; PULSE 112
== END 2018-01-06 16:00 | disposition home or self-care (01) ==
LOC: EC 12:27
DX: S20.212A Contusion of left front wall of thorax, initial encounter (principal); R55 Syncope and collapse; E10.9 Type 1 diabetes mellitus without complications; F41.9 Anxiety disorder, unspecified; F32.9 Major depressive disorder, single episode, unspecified; F17.200 Nicotine dependence, unspecified, uncomplicated; Z86.14 Personal history of Methicillin resistant Staphylococcus aureus infection; Z87.19 Personal history of other diseases of the digestive system; Z90.49 Acquired absence of other specified parts of digestive tract; Z79.4 Long term (current) use of insulin; Z79.899 Other long term (current) drug therapy; W01.198A Fall on same level from slipping, tripping and stumbling with subsequent striking against other object, initial encounter
CPT/HCPCS: 36415; 93005; 71046; 99284; 96372; J1885

== ENCOUNTER 2018-02-06 05:57 | Inpatient (IN) | payer OTHER ==
[2018-02-06 06:22] LABS: Glucose,Whole Blood 409 mg/dL (75-99)
[2018-02-06] MEDS ORDERED: SODIUM CHLORIDE 0.9% 2,000 ML IV ONE (06:24)
[2018-02-06] MEDS ORDERED: INSULIN REGULAR 100 UNIT/ML VIAL IV STA (06:24)
--- NOTE | 2018-02-06 06:36 | ED ---
SOB HPI - General Chief Complaint: Shortness of Breath Stated Complaint: ASTHMA Time Seen by Provider: 02/06/18 06:13 Source: patient, family Mode of arrival: ambulatory Limitations: no limitations - History of Present Illness Initial Comments: This patient is a 22-year-old woman with history of type 1 diabetes, who presents with a concern that she may be developing DKA. The patient states that she was in her usual state of health until approximately 3-4 days ago when she noticed that her appetite was going away. She states that over the past day or 2 she has been started having nausea and vomiting. She feels very thirsty. Over the past few hours she has been feeling short of breath. Patient denies any preceding symptoms of infection. No fever or chills. No productive cough. No dysuria or frequency. MD Complaint: shortness of breath -: hour(s) Consistency: constant Improves With: nothing Worsens With: nothing Context: recent URI Associated Symptoms: nausea/vomiting, other (Decreased appetite) Treatments Prior to Arrival: none - Related Data Home Medications Medication Instructions Recorded Confirmed Insulin Aspart [NovoLOG See Protocol SQ ACHS 12/03/16 02/06/18 (formulary)] Insulin Glargine [Lantus] 26 units SQ HS 02/21/17 02/06/18 Ibuprofen [Motrin Ib] 800 mg PO TID PRN 12/02/17 02/06/18 Insulin Aspart [NovoLOG 5 unit SQ AC-TID 12/02/17 02/06/18 (formulary)] Cider Vinegar [Apple Cider Vinegar] 300 mg PO DAILY 01/03/18 02/06/18 Levothyroxine Sodium [Synthroid] 25 mcg PO DAILY 01/03/18 02/06/18 Lidocaine 4% Cream [Lmx 4] 1 applic TOPICAL TID 01/03/18 02/06/18 Loperamide [Imodium] 2 mg PO QID 01/03/18 02/06/18 Acetaminophen-Codeine 300-30mg 1 tab PO Q8HR 02/06/18 02/06/18 [Tylenol w/codeine #3] Albuterol Inhaler [Ventolin Hfa 1 - 2 puff INHALATION RT-BID 02/06/18 02/06/18 Inhaler] Cholecalciferol (Vitamin D3) 2,000 unit PO DAILY 02/06/18 02/06/18 [Vitamin D3] Cyclobenzaprine [Flexeril] 5 mg PO BID 02/06/18 02/06/18 Gabapentin [Neurontin] 300 mg PO BID 02/06/18 02/06/18 Naproxen Sodium [Aleve] 440 mg PO TID 02/06/18 02/06/18 Nortriptyline [Pamelor] 25 mg PO DAILY 02/06/18 02/06/18 hydrOXYzine HCL [Atarax] 25 mg PO TID PRN 02/06/18 02/06/18 Allergies Allergy/AdvReac Type Severity Reaction Status Date / Time No Known Allergies Allergy Verified 02/06/18 08:00 Review of Systems ROS Statement: Those systems with pertinent positive or pertinent negative responses have been documented in the HPI. ROS Other: All systems not noted in ROS Statement are negative. Constitutional: Reports: weakness. Denies: fever, chills Respiratory: Reports: dyspnea. Denies: cough, wheezes Cardiovascular: Reports: palpitations. Denies: chest pain, orthopnea, edema, syncope Gastrointestinal: Reports: nausea, vomiting. Denies: abdominal pain, diarrhea, melena, hematochezia Genitourinary: Denies: dysuria, hematuria, abnormal menses Skin: Denies: rash Neurological: Denies: headache, weakness, numbness Past Medical History Past Medical History: Asthma, Diabetes Mellitus, GERD/Reflux, Syncope Additional Past Medical History / Comment(s): Pt recently admitted to [facility] on with DKA and elevated lactic acid, transaminitis, metabolic acidosis, glycogenic hepatology-she transferred to [facility] where she states they also diagnosed her with gastroparesis. Other Hx: Recent GI illness, recent UTI and completed antibiotic, IDDM type I, DKAs, syncope pt thinks related to hypoglycemia, back pain-bulging disc, L sided sciatica, ovarian cyst. History of Any Multi-Drug Resistant Organisms: MRSA Date of last positivie culture/infection: 03/2014 MDRO Source:: GROIN AREA Past Surgical History: Cholecystectomy Past Anesthesia/Blood Transfusion Reactions: No Reported Reaction Past Psychological History: Anxiety, Depression Smoking Status: Light tobacco smoker Past Alcohol Use History: None Reported Past Drug Use History: Marijuana - Past Family History Mother History Unknown: Yes Family Medical History: No Reported History Additional Family Medical History / Comment(s): "heart disease" Father Family Medical History: Diabetes Mellitus Additional Family Medical History / Comment(s): Diabetes type II.; Heart disease General Exam Limitations: no limitations General appearance: alert, in distress Head exam: Present: atraumatic, normocephalic Eye exam: Present: normal appearance. Absent: scleral icterus, conjunctival injection ENT exam: Present: mucous membranes dry Neck exam: Present: normal inspection, full ROM Respiratory exam: Present: normal lung sounds bilaterally, respiratory distress (Mild tachypnea). Absent: wheezes, rales, rhonchi Cardiovascular Exam: Present: normal rhythm, tachycardia (Rate approximately 140 at my exam), normal heart sounds. Absent: systolic murmur, diastolic murmur , rubs, gallop GI/Abdominal exam: Present: soft, diminished bowel sounds. Absent: distended, tenderness, guarding, rebound, rigid, mass Extremities exam: Present: normal inspection, normal capillary refill. Absent: pedal edema, calf tenderness Back exam: Present: normal inspection. Absent: CVA tenderness (R), CVA tenderness (L) Neurological exam: Present: alert Skin exam: Present: warm, dry, intact, normal color. Absent: rash Course Vital Signs 02/06/18 02/06/18 02/06/18 06:01 06:30 07:00 Temperature 97.5 F L Pulse Rate 144 H 137 H 134 H Respiratory 22 41 H 23 Rate Blood Pressure 105/67 O2 Sat by Pulse 100 Oximetry 02/06/18 02/06/18 02/06/18 07:30 08:00 08:30 Temperature Pulse Rate 135 H 125 H 125 H Respiratory 18 18 20 Rate Blood Pressure 110/79 114/77 124/90 O2 Sat by Pulse 95 100 100 Oximetry 02/06/18 09:00 Temperature Pulse Rate 125 H Respiratory 18 Rate Blood Pressure 128/91 O2 Sat by Pulse 99 Oximetry Medical Decision Making - Lab Data Result diagrams: 02/08/18 06:24 02/08/18 06:24 Lab Results 02/06/18 02/06/18 02/06/18 Range/Units 06:19 06:30 06:30 WBC 17.0 H (3.8-10.6) k/uL RBC 5.53 H (3.80-5.40) m/uL Hgb 14.8 (11.4-16.0) gm/dL Hct 49.9 H (34.0-46.0) % MCV 90.4 D (80.0-100.0) fL MCH 26.8 (25.0-35.0) pg MCHC 29.7 L (31.0-37.0) g/dL RDW 14.2 (11.5-15.5) % Plt Count 687 H (150-450) k/uL Neutrophils % 78 % Lymphocytes % 16 % Monocytes % 4 % Eosinophils % 1 % Basophils % 1 % Neutrophils # 13.2 H (1.3-7.7) k/uL Lymphocytes # 2.8 (1.0-4.8) k/uL Monocytes # 0.6 (0-1.0) k/uL Eosinophils # 0.1 (0-0.7) k/uL Basophils # 0.1 (0-0.2) k/uL Hypochromasia Marked Sodium (137-145) mmol/L Potassium (3.5-5.1) mmol/L Chloride (98-107) mmol/L Carbon Dioxide (22-30) mmol/L Anion Gap mmol/L BUN (7-17) mg/dL Creatinine (0.52-1.04) mg/dL Est GFR (CKD-EPI)AfAm (>60 ml/min/1.73 sqM) Est GFR (CKD-EPI)NonAf (>60 ml/min/1.73 sqM) Glucose (74-99) mg/dL POC Glucose (mg/dL) 409 H (75-99) mg/dL POC Glu Director Public Service ID Ayesha Mix Calcium (8.4-10.2) mg/dL Total Bilirubin (0.2-1.3) mg/dL AST (14-36) U/L ALT (9-52) U/L Alkaline Phosphatase (38-126) U/L Total Protein (6.3-8.2) g/dL Albumin (3.5-5.0) g/dL Acetone, Qual Positive (Negative) 02/06/18 Range/Units 06:30 WBC (3.8-10.6) k/uL RBC (3.80-5.40) m/uL Hgb (11.4-16.0) gm/dL Hct (34.0-46.0) % MCV (80.0-100.0) fL MCH (25.0-35.0) pg MCHC (31.0-37.0) g/dL RDW (11.5-15.5) % Plt Count (150-450) k/uL Neutrophils % % Lymphocytes % % Monocytes % % Eosinophils % % Basophils % % Neutrophils # (1.3-7.7) k/uL Lymphocytes # (1.0-4.8) k/uL Monocytes # (0-1.0) k/uL Eosinophils # (0-0.7) k/uL Basophils # (0-0.2) k/uL Hypochromasia Sodium 143 (137-145) mmol/L Potassium 4.8 (3.5-5.1) mmol/L Chloride 108 H (98-107) mmol/L Carbon Dioxide 7 L* (22-30) mmol/L Anion Gap 28 mmol/L BUN 13 (7-17) mg/dL Creatinine 0.69 (0.52-1.04) mg/dL Est GFR (CKD-EPI)AfAm >90 (>60 ml/min/1.73 sqM) Est GFR (CKD-EPI)NonAf >90 (>60 ml/min/1.73 sqM) Glucose 446 H (74-99) mg/dL POC Glucose (mg/dL) (75-99) mg/dL POC Glu Director Public Service ID Calcium 10.3 H (8.4-10.2) mg/dL Total Bilirubin 0.4 (0.2-1.3) mg/dL AST 31 (14-36) U/L ALT 48 (9-52) U/L Alkaline Phosphatase 165 H (38-126) U/L Total Protein 8.0 (6.3-8.2) g/dL Albumin 4.9 (3.5-5.0) g/dL Acetone, Qual (Negative) - EKG Data -: EKG Interpreted by Mi EKG shows normal: sinus rhythm, axis (Rightward axis), intervals (There is a short [place] interval, QRS duration and QTC normal), ST-T waves (Possible inferior ischemia) Rate: tachycardia (Rate 144 bpm) Critical Care Time Critical Care Time: Yes (35 minutes) Disposition Clinical Impression: DKA (diabetic ketoacidoses) Disposition: ADMITTED IP TO THIS HOSP Condition: Serious Is patient prescribed a controlled substance at d/c from ED?: No
[2018-02-06 06:46] LABS: Basophils # (A) 0.1 k/uL (0-0.2); Basophils % (A) 1 %; Eosinophils # (A) 0.1 k/uL (0-0.7); Eosinophils % (A) 1 %; HCT 49.9 % (34.0-46.0); HGB 14.8 gm/dL (11.4-16.0); Hypochromasia Marked; Lymphocytes # (A) 2.8 k/uL (1.0-4.8); Lymphocytes % (A) 16 %; MCH 26.8 pg (25.0-35.0); MCHC 29.7 g/dL (31.0-37.0); Monocytes # (A) 0.6 k/uL (0-1.0); Monocytes % (A) 4 %; Neutrophils # (A) 13.2 k/uL (1.3-7.7); Neutrophils % (A) 78 %; Platelet Count 687 k/uL (150-450); RBC 5.53 m/uL (3.80-5.40); RDW 14.2 % (11.5-15.5)
[2018-02-06 07:01] LABS: ALT 48 U/L (9-52); AST 31 U/L (14-36); Albumin 4.9 g/dL (3.5-5.0); Alkaline Phosphatase 165 U/L (38-126); Anion Gap 28 mmol/L; Blood Urea Nitrogen 13 mg/dL (7-17); Calcium 10.3 mg/dL (8.4-10.2); Chloride 108 mmol/L (98-107); Glucose 446 mg/dL (74-99); Potassium 4.8 mmol/L (3.5-5.1); Sodium 143 mmol/L (137-145); Total Bilirubin 0.4 mg/dL (0.2-1.3)
[2018-02-06] MEDS ORDERED: SODIUM CHLORIDE 0.9% 1,000 ML IV ONE (07:07)
[2018-02-06 07:12] LABS: Carbon Dioxide 7 mmol/L (22-30)
[2018-02-06] MEDS ORDERED: INSULIN REGULAR 100 UNIT in SODIUM CHLORIDE 0.9% 100 ML IV SCH (07:15)
[2018-02-06] MEDS ORDERED: SODIUM CHLORIDE 0.9% 1,000 ML IV SCH (07:15)
[2018-02-06 07:19] LABS: MCV 90.4 fL (80.0-100.0)
[2018-02-06 07:30] LABS: Glucose,Whole Blood 338 mg/dL (75-99)
[2018-02-06 08:12] LABS: Glucose,Whole Blood 291 mg/dL (75-99)
[2018-02-06 08:52] LABS: Glucose,Whole Blood 226 mg/dL (75-99)
[2018-02-06] MEDS ORDERED: CHOLECALCIFEROL 1,000 UNIT TAB PO SCH (09:00)
[2018-02-06] MEDS: D5-0.45% NACL WITH KCL 20MEQ/L 1,000 ML IV SCH ×2 (09:04→16:00)
[2018-02-06 09:26] VITALS: RESP 18
[2018-02-06 09:43] LABS: Appearance,Urine Clear (Clear); Bilirubin,Urine Negative (Negative); Blood,Urine Trace (Negative); Color,Urine Light Yellow; Glucose,Urine (UA) 4+ (Negative); Hyaline Casts,Urine 11 /lpf (0-2); Leukocyte Esterase,Urine Large (Negative); Mucus,Urine Rare /hpf; Nitrite,Urine Negative (Negative); PH, Urine 5.5 (5.0-8.0); Protein,Urine 1+ (Negative); RBC,Urine 6 /hpf (0-5); Specific Gravity,Urine 1.011 (1.001-1.035); Squamous Epithelial Cell,Urine 4 /hpf (0-4); Urobilinogen,Urine <2.0 mg/dL (<2.0); WBC,Urine 8 /hpf (0-5)
[2018-02-06 10:08] LABS: Ketones,Urine 4+ (Negative)
[2018-02-06 10:35] LABS: Glucose,Whole Blood 157 mg/dL (75-99)
[2018-02-06] MEDS ORDERED: TRIMETHOBENZAMIDE 300 MG CAP PO PRN (10:35)
[2018-02-06] MEDS: LOPERAMIDE 2 MG CAP PO SCH ×4 (11:07→21:51)
[2018-02-06 11:12] LABS: Glucose,Whole Blood 192 mg/dL (75-99)
[2018-02-06] MEDS: GABAPENTIN 100 MG CAP PO SCH ×2 (11:16→15:58)
[2018-02-06] MEDS: LIDOCAINE 4% CREAM 5 GM TUBE TOPICAL SCH ×3 (12:07→21:54)
[2018-02-06 12:29] LABS: Glucose,Whole Blood 153 mg/dL (75-99)
[2018-02-06] MEDS ORDERED: hydrOXYzine HCL 25 MG TAB PO PRN (12:50)
[2018-02-06 13:01] LABS: Glucose,Whole Blood 168 mg/dL (75-99)
[2018-02-06 13:14] LABS: Basophils # (A) 0.1 k/uL (0-0.2); Basophils % (A) 1 %; Eosinophils # (A) 0.1 k/uL (0-0.7); Eosinophils % (A) 1 %; HCT 42.4 % (34.0-46.0); HGB 13.2 gm/dL (11.4-16.0); Hypochromasia Slight; Lymphocytes # (A) 4.4 k/uL (1.0-4.8); Lymphocytes % (A) 26 %; MCH 27.4 pg (25.0-35.0); MCHC 31.2 g/dL (31.0-37.0); Mean Platelet Volume 7.6; Monocytes # (A) 0.9 k/uL (0-1.0); Monocytes % (A) 5 %; Neutrophils # (A) 11.7 k/uL (1.3-7.7); Neutrophils % (A) 67 %; Platelet Count 552 k/uL (150-450); RBC 4.82 m/uL (3.80-5.40); RDW 14.5 % (11.5-15.5); WBC 17.4 k/uL (3.8-10.6)
[2018-02-06 13:18] LABS: ALT 45 U/L (9-52); AST 23 U/L (14-36); Alkaline Phosphatase 144 U/L (38-126); Anion Gap 15 mmol/L; Blood Urea Nitrogen 11 mg/dL (7-17); Calcium 9.4 mg/dL (8.4-10.2); Carbon Dioxide 12 mmol/L (22-30); Chloride 117 mmol/L (98-107); Glucose 177 mg/dL (74-99); Phosphorus 2.9 mg/dL (2.5-4.5); Potassium 4.3 mmol/L (3.5-5.1); Sodium 144 mmol/L (137-145); Total Bilirubin 0.3 mg/dL (0.2-1.3); Total Protein 6.7 g/dL (6.3-8.2)
[2018-02-06 14:14] LABS: Glucose,Whole Blood 165 mg/dL (75-99)
[2018-02-06] MEDS: PANTOPRAZOLE 40 MG/10 ML VIAL IVP SCH ×2 (14:18→21:59)
[2018-02-06] MEDS: NORTRIPTYLINE 25 MG CAP PO SCH (14:18)
[2018-02-06 15:22] LABS: Glucose,Whole Blood 155 mg/dL (75-99)
[2018-02-06 15:58] VITALS: BMI 19.6
[2018-02-06] MEDS: Acetaminophen-Codeine 300-30mg TAB PO SCH ×2 (15:58→23:51)
[2018-02-06] MEDS ORDERED: NAPROXEN 250 MG TAB PO PRN (16:00)
[2018-02-06 16:27] LABS: Glucose,Whole Blood 135 mg/dL (75-99)
[2018-02-06 16:42] LABS: Glucose,Whole Blood 128 mg/dL (75-99)
[2018-02-06 16:56] LABS: Anion Gap 13 mmol/L; Blood Urea Nitrogen 7 mg/dL (7-17); Calcium 9.5 mg/dL (8.4-10.2); Carbon Dioxide 15 mmol/L (22-30); Chloride 114 mmol/L (98-107); Glucose 122 mg/dL (74-99); Potassium 4.2 mmol/L (3.5-5.1); Sodium 142 mmol/L (137-145)
[2018-02-06] MEDS ORDERED: ALPRAZolam 0.25 MG TAB PO PRN (17:27)
[2018-02-06] MEDS ORDERED: MELATONIN 3 MG TABLET PO PRN (17:27)
[2018-02-06 18:00] LABS: Glucose,Whole Blood 130 mg/dL (75-99)
--- NOTE | 2018-02-06 19:10 | HP ---
HISTORY AND PHYSICAL CHIEF COMPLAINT: Shortness of breath and diabetic ketoacidosis. HISTORY OF PRESENT ILLNESS: This 22-year-old woman with a past medical history of multiple medical problems including diabetes type 2, history of asthma, GERD, syncope, being for Dr. Deborah Stearns in the outpatient department, was not feeling well yesterday. The patient had increasing shortness of breath. The patient also had nausea and vomiting for the last couple of days, unable to keep anything down. The patient came to [facility] and was found to be in diabetic ketoacidosis with positive acetones. Patient admitted for further evaluation and treatment. Insulin drip was initiated. There is no history of fevers or rigors. No history of headache, loss of consciousness, seizures. PAST MEDICAL HISTORY: History of asthma, diabetes, GERD, syncope, MRSA, anxiety and depression. MEDICATIONS: Prior to admission, home medications are: 1. Atarax 25 mg t.i.d. p.r.n. 2. Pamelor 25 mg p.o. daily. 3. Aleve 440 mg p.o. t.i.d. 4. Imodium 2 mg p.o. q.i.d. 5. Synthroid 25 mcg p.o. daily. 6. Lantus 26 units subcu at bedtime. 7. NovoLog 5 units subcu with meals t.i.d. 8. Motrin 800 mg t.i.d. p.r.n. 9. Neurontin 300 mg p.o. b.i.d. 10.Flexeril 5 mg p.o. b.i.d. 11.Vitamin D 2000 daily. 12.Proventil HFA 1 to 2 puffs p.o. b.i.d. 13.Tylenol #3, 1 tablet p.o. every 8 h p.r.n. 14.Lidocaine cream. 15.Apple cider vinegar. ALLERGIES: None. FAMILY HISTORY: History of heart disease in the family. SOCIAL HISTORY: History of smoking, history of THC. REVIEW OF SYSTEMS: ENT: No diminished vision. CARDIOVASCULAR: No angina. RESPIRATORY: As mentioned earlier. GI: No nausea or vomiting. : No dysuria. NERVOUS SYSTEM: No numbness. ALLERGY/IMMUNOLOGY: No asthma. MUSCULOSKELETAL: As mentioned. HEMATOLOGY/ONCOLOGY: Negative. ENDOCRINE: As mentioned. RHEUMATOLOGY: Negative. SKIN: As mentioned earlier. PHYSICAL EXAMINATION: Alert, oriented x3, pulse 131, blood pressure 131/87, respirations 18, temperature 98.2, pulse ox 100 percent on room air. HEENT: Conjunctivae normal. Oral mucosa moist. NECK: No jugular venous distention. No carotid bruit. No lymph node enlargement. CARDIOVASCULAR: S1 and S2. Breath sounds diminished in the bases. A few scattered rhonchi and crackles. Expiratory wheezing also present. ABDOMEN: Soft, nontender. No mass palpable. LEGS: No edema, no swelling. NERVOUS SYSTEM: Higher functions as mentioned earlier. Moves all four limbs. No focal motor deficits. LYMPH: No lymph nodes palpable in the neck or axillae. SKIN: No rash. LAB STUDIES: At this time shows sodium 142, potassium 4.2, WBC 17.4. ASSESSMENT: 1. Acute diabetic ketoacidosis. 2. Metabolic acidosis present on admission. 3. Acute bronchial asthma. 4. Urinary tract infection. 5. Increased WBC. 6. History of gastroesophageal reflux disease. 7. History of syncope. 8. History of insulin-dependent diabetes type 2. 9. History of neuropathy bilaterally. 10.History of gastroparesis. 11.History of MRSA. 12.History of anxiety and depression. 13.History of nicotine dependence. 14.History of THC. RECOMMENDATIONS AND DISCUSSION: This 22-year-old woman presented with multiple complex medical issues. We will monitor the patient closely, continue the current management and symptomatic treatment at this time, insulin drip, DVT prophylaxis. See orders for further details. Consider management. Overall prognosis guarded because of multiple complex medical issues. We will also initiate broad-spectrum IV antibiotics also for multiple concerns as described above. See orders for details. Prognosis guarded. Discussed with the patient. Further recommendations to follow. MMODL / IJN: [id number] / [email or web address]
[2018-02-06 19:17] LABS: Glucose,Whole Blood 118 mg/dL (75-99)
[2018-02-06 20:29] LABS: Glucose,Whole Blood 137 mg/dL (75-99)
[2018-02-06] MEDS: ALBUTEROL NEBULIZED 2.5 MG/3 ML INHALATION SCH (20:30)
[2018-02-06 20:46] LABS: Chloride 114 mmol/L (98-107); Glucose 134 mg/dL (74-99); Potassium 3.8 mmol/L (3.5-5.1); Sodium 141 mmol/L (137-145)
[2018-02-06 20:47] LABS: Anion Gap 10 mmol/L; Blood Urea Nitrogen 7 mg/dL (7-17); Calcium 9.1 mg/dL (8.4-10.2); Carbon Dioxide 17 mmol/L (22-30)
[2018-02-06] MEDS ORDERED: INSULIN DETEMIR 100 UNIT/ML 10 ML VIAL SQ SCH (21:00)
[2018-02-06 21:18] LABS: Glucose,Whole Blood 132 mg/dL (75-99)
[2018-02-06] MEDS ORDERED: D5-0.45% NACL WITH KCL 20MEQ/L 1,000 ML IV SCH (21:45)
[2018-02-06] MEDS: HEPARIN SODIUM,PORCINE 5,000 UNIT/ML 1 ML VIAL SQ SCH (21:53)
[2018-02-06] MEDS: traZODone HCL 100 MG TAB PO SCH (21:53)
[2018-02-06] MEDS: GABAPENTIN 300 MG CAP PO SCH (21:59)
[2018-02-06] MEDS: CYCLOBENZAPRINE 5 MG TAB PO SCH (21:59)
[2018-02-07 02:08] LABS: Glucose,Whole Blood 125 mg/dL (75-99)
[2018-02-07] MEDS: INSULIN ASPART 100 UNIT/ML 1 ML 10 ML VIAL SQ SCH ×7 (02:09→21:45)
[2018-02-07] MEDS ORDERED: DEXTROSE 50%-WATER 50 ML SYRINGE IVP ONE (06:02)
[2018-02-07 06:07] LABS: Glucose,Whole Blood 28 mg/dL (75-99)
[2018-02-07 06:07] LABS: Glucose,Whole Blood 30 mg/dL (75-99)
[2018-02-07 06:26] LABS: Glucose,Whole Blood 167 mg/dL (75-99)
[2018-02-07] MEDS: DEXTROSE 5%-0.45% NACL 1,000 ML IV SCH (06:26)
[2018-02-07] MEDS: LEVOTHYROXINE 25 MCG TAB PO SCH (06:29)
[2018-02-07 06:59] LABS: Glucose,Whole Blood 127 mg/dL (75-99)
[2018-02-07 07:25] LABS: Anion Gap 10 mmol/L; Basophils # (A) 0.1 k/uL (0-0.2); Basophils % (A) 1 %; Blood Urea Nitrogen 6 mg/dL (7-17); Calcium 9.6 mg/dL (8.4-10.2); Carbon Dioxide 19 mmol/L (22-30); Chloride 112 mmol/L (98-107); Eosinophils # (A) 0.4 k/uL (0-0.7); Eosinophils % (A) 5 %; Glucose 159 mg/dL (74-99); HCT 38.1 % (34.0-46.0); Lymphocytes # (A) 2.6 k/uL (1.0-4.8); Lymphocytes % (A) 35 %; MCH 26.5 pg (25.0-35.0); MCHC 31.4 g/dL (31.0-37.0); MCV 84.3 fL (80.0-100.0); Mean Platelet Volume 6.7; Monocytes # (A) 0.4 k/uL (0-1.0); Monocytes % (A) 5 %; Neutrophils % (A) 53 %; Platelet Count 449 k/uL (150-450); Potassium 3.8 mmol/L (3.5-5.1); RBC 4.52 m/uL (3.80-5.40); RDW 14.7 % (11.5-15.5); Sodium 141 mmol/L (137-145); WBC 7.4 k/uL (3.8-10.6)
[2018-02-07] MEDS: HEPARIN SODIUM,PORCINE 5,000 UNIT/ML 1 ML VIAL SQ SCH ×2 (08:02→21:43)
[2018-02-07] MEDS: LOPERAMIDE 2 MG CAP PO SCH ×4 (08:03→21:45)
[2018-02-07] MEDS: Acetaminophen-Codeine 300-30mg TAB PO SCH ×3 (08:15→23:07)
[2018-02-07] MEDS: NORTRIPTYLINE 25 MG CAP PO SCH (08:16)
[2018-02-07] MEDS: CYCLOBENZAPRINE 5 MG TAB PO SCH ×2 (08:16→21:50)
[2018-02-07] MEDS: PANTOPRAZOLE 40 MG/10 ML VIAL IVP SCH ×2 (08:16→21:50)
[2018-02-07] MEDS: LIDOCAINE 4% CREAM 5 GM TUBE TOPICAL SCH ×3 (08:16→21:45)
[2018-02-07] MEDS: CHOLECALCIFEROL 1,000 UNIT TAB PO SCH (08:16)
[2018-02-07] MEDS: ALBUTEROL NEBULIZED 2.5 MG/3 ML INHALATION SCH ×2 (08:24→21:44)
[2018-02-07] MEDS: GABAPENTIN 300 MG CAP PO SCH ×2 (08:24→21:50)
[2018-02-07 11:46] LABS: Glucose,Whole Blood 304 mg/dL (75-99)
[2018-02-07 13:19] LABS: Hemoglobin A1C 10.4 % (4.0-6.0)
[2018-02-07 14:03] LABS: Glucose,Whole Blood 294 mg/dL (75-99)
[2018-02-07] MEDS ORDERED: INSULIN DETEMIR 100 UNIT/ML 10 ML VIAL SQ SCH ×2 (14:04→21:00)
[2018-02-07 16:31] LABS: Glucose,Whole Blood 49 mg/dL (75-99)
--- NOTE | 2018-02-07 17:11 | PN ---
PROGRESS NOTE DATE OF SURGERY: 02/07/2018 This 22-year-old woman who was admitted shortness of breath and acute diabetic ketoacidosis is being closely monitored. Blood sugar is still uncontrolled. Blood sugars are high at 304 currently, but subsequently dropped. No chest pain. No palpitations. No fever. EXAM: Alert and oriented x3. Pulse is 116, blood pressure 120/77, respirations 18, temperature 98.4, pulse ox 96% on room air. HEENT: Conjunctivae normal. NECK: No jugular venous distention. CARDIOVASCULAR: S1, S2. RESPIRATORY: Breath sounds diminished in the bases. No rhonchi. no crackles. ABDOMEN: Soft, nontender. LEGS: No edema. NERVOUS SYSTEM: No focal deficits. LABS: CBC within normal limits. CO2 is 19. UA possibly the UTI. ASSESSMENT: 1. Acute diabetic ketoacidosis. 2. Metabolic acidosis present on admission. 3. Urinary tract infection possibly. 4. Acute bronchial asthma. 5. Increased WBC. 6. Gastroesophageal reflux disease. 7. History of syncope. 8. History of insulin dependent diabetes mellitus type 1. 9. History of neuropathy, bilateral. 10.History of gastroparesis. 11.History of MRSA. 12.Anxiety, depression. 13.History of nicotine dependence. 14.History of THC. RECOMMENDATION AND DISCUSSION: I recommend to continue current management, continue with monitoring and symptomatic treatment. Otherwise at this time I recommend continue with current medications. Adjust the dose of insulin. Also recommend IV antibiotics also. Guarded prognosis. further recommendations to follow. See orders for further details. MMODL / IJN: [id number] /
[2018-02-07 17:22] LABS: Glucose,Whole Blood 66 mg/dL (75-99)
[2018-02-07 17:22] LABS: Glucose,Whole Blood 69 mg/dL (75-99)
[2018-02-07 17:44] LABS: Glucose,Whole Blood 54 mg/dL (75-99)
[2018-02-07 17:54] LABS: Glucose,Whole Blood 70 mg/dL (75-99)
[2018-02-07 21:03] LABS: Glucose,Whole Blood 92 mg/dL (75-99)
[2018-02-07] MEDS: traZODone HCL 100 MG TAB PO SCH (21:44)
[2018-02-07 23:39] LABS: Glucose,Whole Blood 225 mg/dL (75-99)
[2018-02-08 02:13] LABS: Glucose,Whole Blood 244 mg/dL (75-99)
[2018-02-08] MEDS: INSULIN ASPART 100 UNIT/ML 1 ML 10 ML VIAL SQ SCH ×7 (02:16→17:01)
[2018-02-08] MEDS: DEXTROSE 5%-0.45% NACL 1,000 ML IV SCH (02:18)
[2018-02-08 04:26] LABS: Glucose,Whole Blood 128 mg/dL (75-99)
[2018-02-08 06:21] LABS: Glucose,Whole Blood 86 mg/dL (75-99)
[2018-02-08] MEDS: LEVOTHYROXINE 25 MCG TAB PO SCH (06:22)
[2018-02-08 06:46] LABS: Basophils % (A) 1 %; Eosinophils # (A) 0.5 k/uL (0-0.7); Eosinophils % (A) 6 %; HCT 36.1 % (34.0-46.0); Lymphocytes # (A) 2.8 k/uL (1.0-4.8); Lymphocytes % (A) 36 %; MCH 27.6 pg (25.0-35.0); MCHC 33.3 g/dL (31.0-37.0); Mean Platelet Volume 6.1; Monocytes # (A) 0.3 k/uL (0-1.0); Monocytes % (A) 4 %; Neutrophils % (A) 52 %; Platelet Count 412 k/uL (150-450); RBC 4.35 m/uL (3.80-5.40); RDW 14.9 % (11.5-15.5); WBC 7.7 k/uL (3.8-10.6)
[2018-02-08 07:12] LABS: Anion Gap 8 mmol/L; Blood Urea Nitrogen 7 mg/dL (7-17); Calcium 9.5 mg/dL (8.4-10.2); Carbon Dioxide 23 mmol/L (22-30); Chloride 112 mmol/L (98-107); Glucose 92 mg/dL (74-99); Potassium 3.6 mmol/L (3.5-5.1); Sodium 143 mmol/L (137-145)
[2018-02-08] MEDS: ALBUTEROL NEBULIZED 2.5 MG/3 ML INHALATION SCH ×2 (08:20→21:17)
[2018-02-08] MEDS: LOPERAMIDE 2 MG CAP PO SCH ×3 (08:29→16:04)
[2018-02-08] MEDS: HEPARIN SODIUM,PORCINE 5,000 UNIT/ML 1 ML VIAL SQ SCH (08:29)
[2018-02-08] MEDS: PANTOPRAZOLE 40 MG/10 ML VIAL IVP SCH (08:35)
[2018-02-08] MEDS: Acetaminophen-Codeine 300-30mg TAB PO SCH ×2 (08:36→16:03)
[2018-02-08] MEDS: LIDOCAINE 4% CREAM 5 GM TUBE TOPICAL SCH ×2 (08:36→16:04)
[2018-02-08] MEDS: GABAPENTIN 300 MG CAP PO SCH (08:38)
[2018-02-08] MEDS: CYCLOBENZAPRINE 5 MG TAB PO SCH (08:38)
[2018-02-08] MEDS: NORTRIPTYLINE 25 MG CAP PO SCH (08:38)
[2018-02-08] MEDS: CHOLECALCIFEROL 1,000 UNIT TAB PO SCH (08:46)
[2018-02-08 12:03] LABS: Glucose,Whole Blood 255 mg/dL (75-99)
[2018-02-08 15:33] LABS: Glucose,Whole Blood 54 mg/dL (75-99)
[2018-02-08 16:52] LABS: Glucose,Whole Blood 157 mg/dL (75-99)
[2018-02-08] MEDS ORDERED: PANTOPRAZOLE 40 MG TABLET PO SCH (17:30)
--- NOTE | 2018-02-08 19:27 | PN ---
PROGRESS NOTE DATE OF SERVICE: 02/08/2018 This 22-year-old woman was admitted with acute diabetic ketosis, very brittle diabetes mellitus. Blood sugars are fluctuating and widely varying at this time. The sugars have been 86 and subsequent 54 after small dose of insulin. The patient is closely monitored. Patient also has shortness of breath also. No chest pain. No palpitations. The patient is mildly tachycardic. PAST MEDICAL HISTORY: Reviewed. REVIEW OF SYSTEMS: CARDIOVASCULAR: No angina. RESPIRATORY: As mentioned earlier. GI: As mentioned. : No dysuria. NERVOUS SYSTEM: No numbness. ENDOCRINE: As mentioned earlier. CURRENT MEDICATIONS: Reviewed and include: 1. Tylenol #3 p.r.n. 2. Ventolin 2.5 b.i.d. p.r.n. 3. Xanax 0.5 t.i.d. 4. Rocephin 1 g IV daily. 5. Vitamin D3 2000 daily. 6. Flexeril 5 mg b.i.d. 7. Neurontin 300 mg p.o. b.i.d. 9. Heparin subcu b.i.d. 10.Atarax 25 mg t.i.d. p.r.n. 11.NovoLog a.c. and at bedtime. 12. 20 units subcu q.h.s. 13.Synthroid 25 mcg p.o. daily. 14.Lidocaine local patch. 15.Imodium 2 mg p.o. t.i.d. 16.Melatonin 3 mg q.h.s. 17.Naprosyn. 18.Pamelor 25 mg. 19.Protonix 40 mg b.i.d. 20.Desyrel 100 mg q.h.s. 21.Trimethobenzamide 300 mg p.o. q.i.d. PHYSICAL EXAMINATION: Alert and oriented x3. Pulse 92, blood pressure 130/83, respiration 18, temperature 98.2, pulse ox 90 percent. HEENT: Conjunctivae normal. Oral mucosa moist. Neck is no jugular venous distention. No carotid bruit. No lymph node enlargement. CARDIOVASCULAR: S1, S2 muffled. RESPIRATORY: Breath sounds diminished in the bases. A few scattered rhonchi and crackles. ABDOMEN: Soft, nontender. No mass palpable. LEGS: No edema, no cyanosis. NERVOUS SYSTEM: Higher function as mentioned. Moves all four limbs. No focal deficits. LYMPHATICS: No lymphadenopathy in the neck, axillae, groin. SKIN: No ulcer, rash. LABS: WBC is 7.2, hemoglobin is 12, otherwise blood sugars noted. ASSESSMENT: 1. Acute diabetic ketoacidosis. 2. Possibly extremely brittle diabetes type 1. 3. Metabolic acidosis, present on admission. 4. Urinary tract infection possibly. 5. Acute bronchial asthma acute exacerbation. 6. Increased WBC. 7. Gastroesophageal reflux disease. 8. History of syncope. 9. History of insulin-dependent diabetes type 1. 10.History of bilateral secondary diabetes mellitus. 11.History of gastroparesis. 12.History of MRSA. 13.History of depression. 14.History of nicotine dependence. 15.History of THC. RECOMMENDATIONS AND DISCUSSION: I recommend to continue current management and symptomatic treatment. I would recommend to continue the insulin dose as mentioned earlier. We will closely monitor. Will avoid giving large dose of insulin along with meals. Otherwise eventually the patient is to be evaluated by Endocrine, Dr. Collins is following the patient apparently and I would also recommend outpatient evaluation and diabetic education as well as possible insulin pump also. Otherwise, continue the current medications and also recommend the patient follow up with Dr. Deborah Stearns after discharge also. further recommendations to follow. MMODL / IJN: [id number] / KARTHIK
[2018-02-08 20:46] LABS: Glucose,Whole Blood 371 mg/dL (75-99)
[2018-02-08 21:48] VITALS: BP 140/76; PULSE 101; TEMP 98.5
--- NOTE | 2018-02-11 05:50 | DS ---
DISCHARGE SUMMARY FINAL DIAGNOSES: 1. Acute diabetic ketoacidosis and possibly extremely brittle diabetes type 1. 2. Metabolic acidosis, present on admission. 3. Urinary tract infection possibly. 4. Acute bronchial asthma acute exacerbation. DISCHARGE DISPOSITION: This patient left the hospital AGAINST MEDICAL ADVICE. HISTORY OF PRESENT ILLNESS: This 22-year-old woman with a past medial history of multiple medical problems admitted with diabetic ketoacidosis diabetes mellitus type 1 and multiple other medical issues as mentioned earlier, however, the patient left the hospital AGAINST MEDICAL ADVICE. Please refer to the previous notes for further information. MMODL / IJN: [id number] /
== END 2018-02-08 22:10 | disposition left against medical advice (07) | DRG 638 ==
LOC: EC 05:57 → 3SCARD 07:07
PROVIDERS: ADMIT Hospitalist; ATTEND Hospitalist
DX: E10.10 Type 1 diabetes mellitus with ketoacidosis without coma (principal); J45.901 Unspecified asthma with (acute) exacerbation; N39.0 Urinary tract infection, site not specified; E10.43 Type 1 diabetes mellitus with diabetic autonomic (poly)neuropathy; F17.210 Nicotine dependence, cigarettes, uncomplicated; F32.9 Major depressive disorder, single episode, unspecified; F41.9 Anxiety disorder, unspecified; K21.9 Gastro-esophageal reflux disease without esophagitis; K31.84 Gastroparesis; Z79.4 Long term (current) use of insulin; Z82.49 Family history of ischemic heart disease and other diseases of the circulatory system; Z83.3 Family history of diabetes mellitus; Z86.14 Personal history of Methicillin resistant Staphylococcus aureus infection; Z87.440 Personal history of urinary (tract) infections; M54.32 Sciatica, left side; Z79.890 Hormone replacement therapy; Z79.899 Other long term (current) drug therapy; R00.0 Tachycardia, unspecified
CPT/HCPCS: 36415; 80048; 80053; 81001; 81025; 82009; 83036; 84100; 85025; 93005; 94640; 96360; 99285

== ENCOUNTER → 2018-03-07 | Outpatient (CLI) | payer OTHER ==
[2018-03-07 16:46] LABS: Albumin 4.8 g/dL (3.80-4.90); Albumin/Globulin Ratio 2.29 (1.20-2.10); Anion Gap 11.3 mmol/L (4.00-12.00); Carbon Dioxide 24.7 mmol/L (21.6-31.8); Globulin 2.1 g/dL (1.6-3.3); Magnesium 1.5 mg/dL (1.5-2.4); Potassium 4.3 mmol/L (3.5-5.5); Total Bilirubin 0.4 mg/dL (0.3-1.2); Total Protein 6.9 g/dL (6.2-8.2)
[2018-03-07 20:22] LABS: Hemoglobin A1C 9.9 % (4.0-6.0)
[2018-03-11 07:59] LABS: Vitamin B1 62 ug/L (38-122)
== END ==
LOC: LABWHC1 10:50
PROVIDERS: ATTEND Psychiatry & Neurology Pain Medicine
DX: G89.4 Chronic pain syndrome (principal); Z79.899 Other long term (current) drug therapy
CPT/HCPCS: 36415; 80053; 82306; 82550; 83036; 83519; 83735; 84207; 84425; 84446; 84590; 84591; 84597

== ENCOUNTER → 2018-04-22 | Outpatient (CLI) | payer OTHER ==
[2018-04-22 10:36] LABS: Basophils # (A) 0.1 k/uL (0-0.2); Basophils % (A) 1 %; Eosinophils # (A) 0.6 k/uL (0-0.7); Eosinophils % (A) 6 %; HCT 40.3 % (34.0-46.0); HGB 12.2 gm/dL (11.4-16.0); Hypochromasia Slight; Lymphocytes # (A) 3.7 k/uL (1.0-4.8); Lymphocytes % (A) 35 %; MCH 27.2 pg (25.0-35.0); MCHC 30.2 g/dL (31.0-37.0); MCV 90.2 fL (80.0-100.0); Monocytes # (A) 0.4 k/uL (0-1.0); Monocytes % (A) 4 %; Neutrophils # (A) 5.7 k/uL (1.3-7.7); Neutrophils % (A) 54 %; Platelet Count 609 k/uL (150-450); RBC 4.47 m/uL (3.80-5.40); RDW 14.1 % (11.5-15.5); WBC 10.6 k/uL (3.8-10.6)
[2018-04-22 15:47] LABS: Vitamin D 25 Hydroxy 38.6 ng/mL (30.0-100.0)
[2018-04-22 16:18] LABS: Albumin 4.4 g/dL (3.80-4.90); Albumin/Globulin Ratio 2.2 (1.60-3.17); Anion Gap 8.4 mmol/L (4.00-12.00); Calcium 9.7 mg/dL (8.7-10.3); Carbon Dioxide 28.6 mmol/L (21.6-31.8); LDL Cholesterol,Calculated 57.2 mg/dL (0.0-131.0); Potassium 4.9 mmol/L (3.5-5.5); Total Bilirubin 0.2 mg/dL (0.2-1.2); Total Protein 6.4 g/dL (6.2-8.2); VLDL Calculation 30.8 mg/dL (5.00-40.00)
[2018-04-22 16:42] LABS: Hemoglobin A1C 8.9 % (4.0-6.0)
== END | disposition home or self-care (01) ==
LOC: LABWHC1 09:12
PROVIDERS: ATTEND Nurse Practitioner Family
DX: E10.65 Type 1 diabetes mellitus with hyperglycemia (principal); R19.7 Diarrhea, unspecified; R74.8 Abnormal levels of other serum enzymes
CPT/HCPCS: 36415; 80053; 80061; 82043; 82306; 82570; 82607; 83036; 84443; 85025

== ENCOUNTER 2018-05-08 17:00 | Inpatient (IN) | payer OTHER ==
[2018-05-08] MEDS ORDERED: SODIUM CHLORIDE 0.9% 1,000 ML IV STA ×2 (17:36→21:17)
[2018-05-08] MEDS ORDERED: PANTOPRAZOLE 40 MG/10 ML VIAL IVP STA (17:36)
[2018-05-08] MEDS ORDERED: MORPHINE SULFATE 2 MG/ML SYRINGE IVP STA (17:36)
[2018-05-08] MEDS ORDERED: METOCLOPRAMIDE 5 MG/ML 2 ML VIAL IVP STA (17:36)
--- NOTE | 2018-05-08 17:42 | ED ---
General Adult HPI - General Source: patient, family, EMS, RN notes reviewed, old records reviewed Mode of arrival: EMS Limitations: no limitations <Ketan Bowling - Last Filed: 05/09/18 00:27> <Delores French - Last Filed: 05/09/18 03:29> - General Chief complaint: Nausea/Vomiting/Diarrhea Stated complaint: Vomiting Time Seen by Provider: 05/08/18 17:11 - History of Present Illness Initial comments: 22-year-old female patient past medical history of type 1 diabetes, DKA, diabetic gastroparesis, status post cholecystectomy presents to ED with 4 days of nausea vomiting, epigastric pain. Patient states that this feels similar to epigastric pain and nausea vomiting she has had in the past, however she does feel it is more severe. Patient has vomited approximately 7 times today has not been able tolerate by mouth intake. Patient states that her sugars have been relatively well controlled at home, glucose between 100-200. Pt denies all other complaints. Systemic: Pt denies fatigue, myalgia, fever/chills, rash. Pt denies weakness, night sweats, weight loss. Neuro: Pt denies headache, visual disturbances, syncope or pre-syncope. HEENT: Pt denies ocular discharge or irritation, otalgia, rhinorrhea, pharyngitis or notable lymphadenopathy. Cardiopulmonary: Pt denies chest pain, SOB, heart palpitations, dyspnea on exertion. Abdominal/GI: Pt denies diarrhea. : Pt denies dysuria, burning w/ urination, frequency/urgency. Denies new onset urinary or bowel incontinence. MSK: Pt denies myalgia, loss of strength or function in extremities. Neuro: Pt denies new onset weakness, paresthesias. (Ketan Bowling) - Related Data Home Medications Medication Instructions Recorded Confirmed INSULIN ASPART (NovoLOG) [NovoLOG See Protocol SQ ACHS 12/03/16 05/08/18 (formulary)] Insulin Glargine [Lantus] 26 units SQ HS 02/21/17 05/08/18 INSULIN ASPART (NovoLOG) [NovoLOG 5 unit SQ AC-TID 12/02/17 05/08/18 (formulary)] Ibuprofen [Motrin Ib] 800 mg PO TID PRN 12/02/17 05/08/18 Cider Vinegar [Apple Cider Vinegar] 300 mg PO DAILY 01/03/18 05/08/18 Levothyroxine Sodium [Synthroid] 25 mcg PO DAILY 01/03/18 05/08/18 Lidocaine 4% Cream [Lmx 4] 1 applic TOPICAL TID 01/03/18 05/08/18 Acetaminophen-Codeine 300-30mg 1 tab PO Q8HR 02/06/18 05/08/18 [Tylenol w/codeine #3] Albuterol Inhaler [Ventolin Hfa 1 - 2 puff INHALATION RT-BID 02/06/18 05/08/18 Inhaler] Cholecalciferol (Vitamin D3) 2,000 unit PO DAILY 02/06/18 05/08/18 [Vitamin D3] Cyclobenzaprine [Flexeril] 5 mg PO BID 02/06/18 05/08/18 Gabapentin [Neurontin] 300 mg PO BID 02/06/18 05/08/18 Naproxen Sodium [Aleve] 440 mg PO TID 02/06/18 05/08/18 Nortriptyline [Pamelor] 25 mg PO DAILY 02/06/18 05/08/18 hydrOXYzine HCL [Atarax] 25 mg PO TID PRN 02/06/18 05/08/18 Ondansetron Odt [Zofran Odt] 8 mg PO Q8HR PRN 05/08/18 05/08/18 Allergies Allergy/AdvReac Type Severity Reaction Status Date / Time No Known Allergies Allergy Verified 05/08/18 17:51 Review of Systems ROS Other: All systems not noted in ROS Statement are negative. <Ketan Bowling - Last Filed: 05/09/18 00:27> ROS Other: All systems not noted in ROS Statement are negative. <Delroes French - Last Filed: 05/09/18 03:29> ROS Statement: Those systems with pertinent positive or pertinent negative responses have been documented in the HPI. Past Medical History Past Medical History: Asthma, Diabetes Mellitus, GERD/Reflux, Syncope Additional Past Medical History / Comment(s): Pt recently admitted to [facility] on with DKA and elevated lactic acid, transaminitis, metabolic acidosis, glycogenic hepatology-she transferred to [facility] where she states they also diagnosed her with gastroparesis. Other Hx: Recent GI illness, recent UTI and completed antibiotic, IDDM type I, DKAs, syncope pt thinks related to hypoglycemia, back pain-bulging disc, L sided sciatica, ovarian cyst. History of Any Multi-Drug Resistant Organisms: MRSA Date of last positivie culture/infection: 03/2014 MDRO Source:: [place] AREA Past Surgical History: Cholecystectomy Past Anesthesia/Blood Transfusion Reactions: No Reported Reaction Past Psychological History: Anxiety, Depression Smoking Status: Light tobacco smoker Past Alcohol Use History: None Reported Past Drug Use History: Marijuana - Past Family History Mother History Unknown: Yes Family Medical History: No Reported History Additional Family Medical History / Comment(s): "heart disease" Father Family Medical History: Diabetes Mellitus Additional Family Medical History / Comment(s): Diabetes type II.; Heart disease <Ketan Bowling - Last Filed: 05/09/18 00:27> General Exam Limitations: no limitations <Ketan Bowling - Last Filed: 05/09/18 00:27> <Delores French - Last Filed: 05/09/18 03:29> - General Exam Comments Initial Comments: Constitutional: NAD, AOX3, Pt has pleasant affect. HEENT: NC/AT, trachea midline, neck supple, no lymphadenopathy. Posterior pharynx non erythematous, without exudates. External ears appear normal, without discharge. Mucous membranes moist. Eyes PERRLA, EOM intact. There is no scleral icterus. No pallor noted. Cardiopulmonary: RRR, no murmurs, rubs or gallops, no JVD noted. Lungs CTAB in anterior and posterior arthur. No peripheral edema. Abdominal exam: Abdomen soft and non-distended. Abdomen mildly tender to palpation epigastric region, no other areas of abdominal tenderness. No guarding or rigidity no ecchymoses.. Bowel sounds active in LLQ. No hepatosplenomegaly. Neuro: CN II-XII grossly intact. No nuchal rigidity. MSK: No posterior calf tenderness bilaterally, homans sign negative bilaterally. Posterior tibialis and radial pulse +2 bilaterally. Sensation intact in upper and lower extremities. Full active ROM in upper and lower extremities, 5/5 stregnth. (Ketan Bowling) Vital Signs 05/08/18 05/08/18 05/08/18 17:24 18:20 19:00 Temperature 98.7 F Pulse Rate 105 H 95 97 Respiratory 26 H 32 H 18 Rate Blood Pressure 150/106 160/102 161/110 O2 Sat by Pulse 100 100 100 Oximetry 05/08/18 05/08/18 05/08/18 19:50 22:26 22:32 Temperature 99.9 F H Pulse Rate 113 H 115 H 121 H Respiratory 34 H 20 20 Rate Blood Pressure 155/104 165/105 163/104 O2 Sat by Pulse 100 100 99 Oximetry 05/08/18 05/09/18 05/09/18 23:30 00:22 00:36 Temperature 99.5 F Pulse Rate 122 H 124 H 114 H Respiratory 20 21 18 Rate Blood Pressure 152/103 159/112 169/103 O2 Sat by Pulse 100 100 99 Oximetry 05/09/18 05/09/18 00:59 01:52 Temperature 97.6 F Pulse Rate 114 H 118 H Respiratory 22 28 H Rate Blood Pressure 171/111 162/104 O2 Sat by Pulse 100 100 Oximetry Medical Decision Making - Lab Data Result diagrams: 05/08/18 22:33 05/08/18 22:33 <Ketan Bowling - Last Filed: 05/09/18 00:27> - Lab Data Result diagrams: 05/08/18 22:33 05/08/18 22:33 <Delores French - Last Filed: 05/09/18 03:29> - Medical Decision Making 22-year-old female patient past medical history of type 1 diabetes, DKA, diabetic gastroparesis, status post cholecystectomy presents to ED with 4 days of nausea vomiting, epigastric pain. Patient states that this feels similar to epigastric pain and nausea vomiting she has had in the past, however she does feel it is more severe. Patient has vomited approximately 7 times today has not been able tolerate by mouth intake. Patient states that her sugars have been relatively well controlled at home, glucose between 100-200. Pt denies all other complaints. This will exam revealed: Abdomen soft and non-distended. Abdomen mildly tender to palpation epigastric region, no other areas of abdominal tenderness. No guarding or rigidity no ecchymoses.. Bowel sounds active in LLQ. No hepatosplenomegaly. Laboratory investigations revealed nonpassive CBC, CMP revealed, CO2 of 17, anion gap of 19, glucose of 274, lites lipase normal limits, acetone negative. Patient was administered IV fluids. Studies were repeated. KUB displayed nonacute abdomen. Repeat studies revealed a leukocytosis of 15, likely reactive. CMP revealed anion gap of 15. Glucose of 297. UA revealed +4 glucose, plus 4 ketones. Acetone was positive. Patient was previously administered 6 units subcu insulin. Patient was started on sliding scale insulin. Admitted to floor for treatment of DKA and further evaluation. Pt nausea and epigastric pain relatively well controlled with antimetrics, gi coctail, IV pain medication. Patient discuss in depth and seen by Dr. French. (Ketan Bowling) I reviewed the patient's lab after she had been here for approximately 4 hours. Patient was noted to have some hyperglycemia with mildly elevated anion gap. Patient had been fluid resuscitated and repeat labs were ordered. ABG revealed the patient was not acidotic. Anion gap was improving. At this time decision was made to treat the patient with subcutaneous insulin rather than an insulin drip as I don't feel she warrants that at this time. Continuous IV fluids sliding scale insulin were ordered and patient was admitted to the floor for hyperglycemia. (Delores French) - Lab Data Lab Results 05/08/18 05/08/18 05/08/18 Range/Units 18:16 18:16 18:21 WBC 12.3 H (3.8-10.6) k/uL RBC 4.43 (3.80-5.40) m/uL Hgb 12.4 (11.4-16.0) gm/dL Hct 39.3 (34.0-46.0) % MCV 88.7 (80.0-100.0) fL MCH 28.1 (25.0-35.0) pg MCHC 31.6 (31.0-37.0) g/dL RDW 13.9 (11.5-15.5) % Plt Count 628 H (150-450) k/uL Neutrophils % 74 % Lymphocytes % 22 % Monocytes % 2 % Eosinophils % 2 % Basophils % 1 % Neutrophils # 9.1 H (1.3-7.7) k/uL Lymphocytes # 2.7 (1.0-4.8) k/uL Monocytes # 0.2 (0-1.0) k/uL Eosinophils # 0.2 (0-0.7) k/uL Basophils # 0.1 (0-0.2) k/uL VBG pH (7.31-7.41) VBG pCO2 (37-51) mmHg VBG HCO3 (24-28) mmol/L Sodium 140 (137-145) mmol/L Potassium 3.9 (3.5-5.1) mmol/L Chloride 104 (98-107) mmol/L Carbon Dioxide 17 L (22-30) mmol/L Anion Gap 19 mmol/L BUN 14 (7-17) mg/dL Creatinine 0.40 L (0.52-1.04) mg/dL Est GFR (CKD-EPI)AfAm >90 (>60 ml/min/1.73 sqM) Est GFR (CKD-EPI)NonAf >90 (>60 ml/min/1.73 sqM) Glucose 274 H (74-99) mg/dL POC Glucose (mg/dL) 272 H (75-99) mg/dL POC Glu Academic Hospitalist ID Sophy Crisostomo Calcium 10.1 (8.4-10.2) mg/dL Total Bilirubin 0.7 (0.2-1.3) mg/dL AST 36 (14-36) U/L ALT 42 (9-52) U/L Alkaline Phosphatase 226 H (38-126) U/L Total Protein 7.5 (6.3-8.2) g/dL Albumin 4.6 (3.5-5.0) g/dL Amylase <30 L (30-110) U/L Lipase 20 L (23-300) U/L Urine Color Urine Appearance (Clear) Urine pH (5.0-8.0) Ur Specific [place] (1.001-1.035) Urine Protein (Negative) Urine Glucose (UA) (Negative) Urine Ketones (Negative) Urine Blood (Negative) Urine Nitrite (Negative) Urine Bilirubin (Negative) Urine Urobilinogen (<2.0) mg/dL Ur Leukocyte Esterase (Negative) Urine HCG, Qual (Not Detectd) Acetone, Qual Negative (Negative) 05/08/18 05/08/18 05/08/18 Range/Units 20:21 22:29 22:30 WBC (3.8-10.6) k/uL RBC (3.80-5.40) m/uL Hgb (11.4-16.0) gm/dL Hct (34.0-46.0) % MCV (80.0-100.0) fL MCH (25.0-35.0) pg MCHC (31.0-37.0) g/dL RDW (11.5-15.5) % Plt Count (150-450) k/uL Neutrophils % % Lymphocytes % % Monocytes % % Eosinophils % % Basophils % % Neutrophils # (1.3-7.7) k/uL Lymphocytes # (1.0-4.8) k/uL Monocytes # (0-1.0) k/uL Eosinophils # (0-0.7) k/uL Basophils # (0-0.2) k/uL VBG pH (7.31-7.41) VBG pCO2 (37-51) mmHg VBG HCO3 (24-28) mmol/L Sodium (137-145) mmol/L Potassium (3.5-5.1) mmol/L Chloride (98-107) mmol/L Carbon Dioxide (22-30) mmol/L Anion Gap mmol/L BUN (7-17) mg/dL Creatinine (0.52-1.04) mg/dL Est GFR (CKD-EPI)AfAm (>60 ml/min/1.73 sqM) Est GFR (CKD-EPI)NonAf (>60 ml/min/1.73 sqM) Glucose (74-99) mg/dL POC Glucose (mg/dL) 301 H 291 H (75-99) mg/dL POC Glu Academic Hospitalist Ayesha Moeller Zachary Calcium (8.4-10.2) mg/dL Total Bilirubin (0.2-1.3) mg/dL AST (14-36) U/L ALT (9-52) U/L Alkaline Phosphatase (38-126) U/L Total Protein (6.3-8.2) g/dL Albumin (3.5-5.0) g/dL Amylase (30-110) U/L Lipase (23-300) U/L Urine Color Light Yellow Urine Appearance Clear (Clear) Urine pH 6.0 (5.0-8.0) Ur Specific [place] 1.020 (1.001-1.035) Urine Protein Trace H (Negative) Urine Glucose (UA) 4+ H (Negative) Urine Ketones 4+ H (Negative) Urine Blood Negative (Negative) Urine Nitrite Negative (Negative) Urine Bilirubin Negative (Negative) Urine Urobilinogen <2.0 (<2.0) mg/dL Ur Leukocyte Esterase Negative (Negative) Urine HCG, Qual (Not Detectd) Acetone, Qual (Negative) 05/08/18 05/08/18 05/08/18 Range/Units 22:30 22:33 22:33 WBC 15.3 H (3.8-10.6) k/uL RBC 4.22 (3.80-5.40) m/uL Hgb 11.9 (11.4-16.0) gm/dL Hct 38.5 (34.0-46.0) % MCV 91.2 (80.0-100.0) fL MCH 28.3 (25.0-35.0) pg MCHC 31.1 (31.0-37.0) g/dL RDW 13.8 (11.5-15.5) % Plt Count 500 H (150-450) k/uL Neutrophils % 87 % Lymphocytes % 11 % Monocytes % 1 % Eosinophils % 0 % Basophils % 0 % Neutrophils # 13.4 H (1.3-7.7) k/uL Lymphocytes # 1.7 (1.0-4.8) k/uL Monocytes # 0.2 (0-1.0) k/uL Eosinophils # 0.1 (0-0.7) k/uL Basophils # 0.0 (0-0.2) k/uL VBG pH 7.31 (7.31-7.41) VBG pCO2 32 L (37-51) mmHg VBG HCO3 16 L (24-28) mmol/L Sodium (137-145) mmol/L Potassium (3.5-5.1) mmol/L Chloride (98-107) mmol/L Carbon Dioxide (22-30) mmol/L Anion Gap mmol/L BUN (7-17) mg/dL Creatinine (0.52-1.04) mg/dL Est GFR (CKD-EPI)AfAm (>60 ml/min/1.73 sqM) Est GFR (CKD-EPI)NonAf (>60 ml/min/1.73 sqM) Glucose (74-99) mg/dL POC Glucose (mg/dL) (75-99) mg/dL POC Glu Academic Hospitalist ID Calcium (8.4-10.2) mg/dL Total Bilirubin (0.2-1.3) mg/dL AST (14-36) U/L ALT (9-52) U/L Alkaline Phosphatase (38-126) U/L Total Protein (6.3-8.2) g/dL Albumin (3.5-5.0) g/dL Amylase (30-110) U/L Lipase (23-300) U/L Urine Color Urine Appearance (Clear) Urine pH (5.0-8.0) Ur Specific [place] (1.001-1.035) Urine Protein (Negative) Urine Glucose (UA) (Negative) Urine Ketones (Negative) Urine Blood (Negative) Urine Nitrite (Negative) Urine Bilirubin (Negative) Urine Urobilinogen (<2.0) mg/dL Ur Leukocyte Esterase (Negative) Urine HCG, Qual Not Detected (Not Detectd) Acetone, Qual (Negative) 05/08/18 05/08/18 05/08/18 Range/Units 22:33 22:33 23:36 WBC (3.8-10.6) k/uL RBC (3.80-5.40) m/uL Hgb (11.4-16.0) gm/dL Hct (34.0-46.0) % MCV (80.0-100.0) fL MCH (25.0-35.0) pg MCHC (31.0-37.0) g/dL RDW (11.5-15.5) % Plt Count (150-450) k/uL Neutrophils % % Lymphocytes % % Monocytes % % Eosinophils % % Basophils % % Neutrophils # (1.3-7.7) k/uL Lymphocytes # (1.0-4.8) k/uL Monocytes # (0-1.0) k/uL Eosinophils # (0-0.7) k/uL Basophils # (0-0.2) k/uL VBG pH (7.31-7.41) VBG pCO2 (37-51) mmHg VBG HCO3 (24-28) mmol/L Sodium 139 (137-145) mmol/L Potassium 4.5 (3.5-5.1) mmol/L Chloride 107 (98-107) mmol/L Carbon Dioxide 17 L (22-30) mmol/L Anion Gap 15 mmol/L BUN 12 (7-17) mg/dL Creatinine 0.39 L (0.52-1.04) mg/dL Est GFR (CKD-EPI)AfAm >90 (>60 ml/min/1.73 sqM) Est GFR (CKD-EPI)NonAf >90 (>60 ml/min/1.73 sqM) Glucose 297 H (74-99) mg/dL POC Glucose (mg/dL) 245 H (75-99) mg/dL POC Glu Academic Hospitalist ID Jack Davenport Calcium 9.2 (8.4-10.2) mg/dL Total Bilirubin (0.2-1.3) mg/dL AST (14-36) U/L ALT (9-52) U/L Alkaline Phosphatase (38-126) U/L Total Protein (6.3-8.2) g/dL Albumin (3.5-5.0) g/dL Amylase (30-110) U/L Lipase (23-300) U/L Urine Color Urine Appearance (Clear) Urine pH (5.0-8.0) Ur Specific [place] (1.001-1.035) Urine Protein (Negative) Urine Glucose (UA) (Negative) Urine Ketones (Negative) Urine Blood (Negative) Urine Nitrite (Negative) Urine Bilirubin (Negative) Urine Urobilinogen (<2.0) mg/dL Ur Leukocyte Esterase (Negative) Urine HCG, Qual (Not Detectd) Acetone, Qual Positive (Negative) Disposition Is patient prescribed a controlled substance at d/c from ED?: No <Ketan Bowling - Last Filed: 05/09/18 00:27> <Delores French - Last Filed: 05/09/18 03:29> Clinical Impression: Diabetic keto-acidosis Disposition: ADMITTED IP TO THIS HOSP Condition: Fair
[2018-05-08 18:23] LABS: Glucose,Whole Blood 272 mg/dL (75-99)
[2018-05-08 18:31] LABS: Basophils # (A) 0.1 k/uL (0-0.2); Basophils % (A) 1 %; Eosinophils # (A) 0.2 k/uL (0-0.7); Eosinophils % (A) 2 %; HCT 39.3 % (34.0-46.0); HGB 12.4 gm/dL (11.4-16.0); Lymphocytes # (A) 2.7 k/uL (1.0-4.8); Lymphocytes % (A) 22 %; MCH 28.1 pg (25.0-35.0); MCHC 31.6 g/dL (31.0-37.0); MCV 88.7 fL (80.0-100.0); Mean Platelet Volume 6.7; Monocytes # (A) 0.2 k/uL (0-1.0); Monocytes % (A) 2 %; Neutrophils # (A) 9.1 k/uL (1.3-7.7); Neutrophils % (A) 74 %; Platelet Count 628 k/uL (150-450); RBC 4.43 m/uL (3.80-5.40); RDW 13.9 % (11.5-15.5); WBC 12.3 k/uL (3.8-10.6)
[2018-05-08 18:57] LABS: ALT 42 U/L (9-52); AST 36 U/L (14-36); Albumin 4.6 g/dL (3.5-5.0); Alkaline Phosphatase 226 U/L (38-126); Amylase <30 U/L (30-110); Anion Gap 19 mmol/L; Blood Urea Nitrogen 14 mg/dL (7-17); Calcium 10.1 mg/dL (8.4-10.2); Carbon Dioxide 17 mmol/L (22-30); Chloride 104 mmol/L (98-107); Glucose 274 mg/dL (74-99); Lipase 20 U/L (23-300); Potassium 3.9 mmol/L (3.5-5.1); Sodium 140 mmol/L (137-145); Total Bilirubin 0.7 mg/dL (0.2-1.3); Total Protein 7.5 g/dL (6.3-8.2)
[2018-05-08] MEDS ORDERED: MORPHINE SULFATE 4 MG/ML SYRINGE IV STA ×2 (19:14→23:15)
--- NOTE | 2018-05-08 19:28 | XR ---
Abdomen single view. History nausea and vomiting. Comparison none. Findings The bowel gas pattern is normal. There is no sign of intestinal obstruction or pneumoperitoneum. Feca l pattern is normal. There are no pathologic calcifications. There is no evidence of a mass. There ar e small density in the right upper quadrant that could be clips from cholecystectomy. IMPRESSION: Nonacute abdomen.
[2018-05-08] MEDS ORDERED: SODIUM CHLORIDE 0.9% 500 ML 500 ML IV STA (19:32)
[2018-05-08] MEDS ORDERED: LORazepam 2 MG/ML INJ IV STA (20:06)
[2018-05-08 20:22] LABS: Glucose,Whole Blood 301 mg/dL (75-99)
[2018-05-08] MEDS ORDERED: INSULIN ASPART (NovoLOG) 100 UNIT/ML VIAL SQ ONE (20:33)
[2018-05-08] MEDS ORDERED: INSULIN REGULAR 100 UNIT in SODIUM CHLORIDE 0.9% 100 ML IV SCH (21:30)
[2018-05-08 22:31] LABS: Glucose,Whole Blood 291 mg/dL (75-99)
[2018-05-08] MEDS: SODIUM CHLORIDE 0.9% 1,000 ML IV SCH (22:34)
[2018-05-08 22:49] LABS: Basophils % (A) 0 %; Eosinophils # (A) 0.1 k/uL (0-0.7); Eosinophils % (A) 0 %; HCT 38.5 % (34.0-46.0); HGB 11.9 gm/dL (11.4-16.0); Lymphocytes # (A) 1.7 k/uL (1.0-4.8); Lymphocytes % (A) 11 %; MCH 28.3 pg (25.0-35.0); MCHC 31.1 g/dL (31.0-37.0); MCV 91.2 fL (80.0-100.0); Mean Platelet Volume 6.9; Monocytes # (A) 0.2 k/uL (0-1.0); Monocytes % (A) 1 %; Neutrophils # (A) 13.4 k/uL (1.3-7.7); Neutrophils % (A) 87 %; Platelet Count 500 k/uL (150-450); RBC 4.22 m/uL (3.80-5.40); RDW 13.8 % (11.5-15.5); VBG PH 7.31 (7.31-7.41); WBC 15.3 k/uL (3.8-10.6)
[2018-05-08 22:54] LABS: Appearance,Urine Clear (Clear); Bilirubin,Urine Negative (Negative); Blood,Urine Negative (Negative); Color,Urine Light Yellow; Glucose,Urine (UA) 4+ (Negative); Leukocyte Esterase,Urine Negative (Negative); Nitrite,Urine Negative (Negative); Protein,Urine Trace (Negative); Urobilinogen,Urine <2.0 mg/dL (<2.0)
[2018-05-08 23:08] LABS: Ketones,Urine 4+ (Negative)
[2018-05-08 23:27] LABS: Anion Gap 15 mmol/L; Blood Urea Nitrogen 12 mg/dL (7-17); Calcium 9.2 mg/dL (8.4-10.2); Carbon Dioxide 17 mmol/L (22-30); Chloride 107 mmol/L (98-107); Glucose 297 mg/dL (74-99); Potassium 4.5 mmol/L (3.5-5.1); Sodium 139 mmol/L (137-145)
[2018-05-08] MEDS ORDERED: INSULIN REGULAR 100 UNIT/ML VIAL SQ ONE (23:30)
[2018-05-08 23:37] LABS: Glucose,Whole Blood 245 mg/dL (75-99)
[2018-05-09] MEDS ORDERED: MAG HYDROX/AL HYDROX/SIMETH 30 ML, HYOSCYAMINE ELIXIR 10 ML, CIMETIDINE HCL 300 MG, LID... PO STA ×4
[2018-05-09] MEDS ORDERED: NALOXONE 0.4 MG/ML 1 ML VIAL IV PRN (00:06)
[2018-05-09] MEDS: ONDANSETRON 4 MG/2 ML VIAL IVP PRN ×4 (00:29→19:46)
[2018-05-09 00:36] LABS: Glucose,Whole Blood 185 mg/dL (75-99)
[2018-05-09] MEDS ORDERED: ENALAPRILAT 1.25 MG/ML 1 ML VIAL IVP STA (01:12)
[2018-05-09] MEDS ORDERED: LORazepam 1 MG TAB PO STA (01:13)
[2018-05-09] MEDS: MORPHINE SULFATE 4 MG/ML SYRINGE IV PRN ×3 (02:28→19:46)
[2018-05-09 02:32] LABS: Glucose,Whole Blood 93 mg/dL (75-99)
[2018-05-09] MEDS: TRIMETHOBENZAMIDE 100 MG/ML 2 ML VIAL IM PRN ×3 (03:01→20:58)
[2018-05-09] MEDS: METOPROLOL TARTRATE 25 MG TAB PO SCH ×3 (03:27→21:32)
[2018-05-09] MEDS: SODIUM CHLORIDE 0.9% 1,000 ML IV SCH ×4 (03:29→19:51)
[2018-05-09 03:37] VITALS: BMI 18.3
[2018-05-09] MEDS: LORazepam 1 MG TAB PO PRN ×2 (05:51→19:56)
[2018-05-09 06:52] LABS: Glucose,Whole Blood 90 mg/dL (75-99)
[2018-05-09] MEDS: INSULIN ASPART (NovoLOG) 100 UNIT/ML VIAL SQ SCH ×5 (07:57→21:28)
[2018-05-09 11:19] LABS: Basophils % (A) 0 %; Eosinophils # (A) 0.2 k/uL (0-0.7); Eosinophils % (A) 1 %; HCT 41.3 % (34.0-46.0); HGB 13.3 gm/dL (11.4-16.0); Lymphocytes # (A) 3.5 k/uL (1.0-4.8); Lymphocytes % (A) 20 %; MCHC 32.1 g/dL (31.0-37.0); MCV 87.2 fL (80.0-100.0); Mean Platelet Volume 6.5; Monocytes # (A) 0.5 k/uL (0-1.0); Monocytes % (A) 3 %; Neutrophils # (A) 12.9 k/uL (1.3-7.7); Neutrophils % (A) 75 %; Platelet Count 614 k/uL (150-450); RBC 4.73 m/uL (3.80-5.40); RDW 13.5 % (11.5-15.5); WBC 17.2 k/uL (3.8-10.6)
[2018-05-09 11:21] LABS: Glucose,Whole Blood 194 mg/dL (75-99)
[2018-05-09 12:10] LABS: Anion Gap 17 mmol/L; Blood Urea Nitrogen 8 mg/dL (7-17); Calcium 9.8 mg/dL (8.4-10.2); Carbon Dioxide 17 mmol/L (22-30); Chloride 108 mmol/L (98-107); Glucose 187 mg/dL (74-99); Potassium 3.8 mmol/L (3.5-5.1); Sodium 142 mmol/L (137-145)
[2018-05-09] MEDS ORDERED: hydrALAZINE HCL 20 MG/ML 1 ML VIAL IVP PRN (13:05)
[2018-05-09] MEDS ORDERED: MORPHINE SULFATE 2 MG/ML SYRINGE IVP ONE (13:13)
[2018-05-09] MEDS: METOCLOPRAMIDE 5 MG/ML 2 ML VIAL IVP PRN (14:06)
[2018-05-09] MEDS ORDERED: hydrOXYzine HCL 25 MG TAB PO PRN (14:45)
[2018-05-09 17:16] LABS: Glucose,Whole Blood 306 mg/dL (75-99)
[2018-05-09] MEDS: NORTRIPTYLINE 25 MG CAP PO SCH (17:33)
[2018-05-09] MEDS ORDERED: CYCLOBENZAPRINE 5 MG TAB PO SCH (21:00)
[2018-05-09] MEDS ORDERED: INSULIN DETEMIR (LEVEMIR) 100 UNIT/ML SYR SQ SCH (21:00)
[2018-05-09] MEDS: GABAPENTIN 300 MG CAP PO SCH (21:09)
[2018-05-09 21:17] LABS: Glucose,Whole Blood 183 mg/dL (75-99)
[2018-05-09] MEDS: FAMOTIDINE 20 MG/2 ML VIAL IV SCH (22:56)
--- NOTE | 2018-05-09 22:56 | P.HPIM ---
History of Present Illness H&P Date: 05/09/18 Chief Complaint: Nausea and vomiting Patient is a 22-year-old female with a known history of type 1 diabetes, history of DKA, diabetic gastroparesis, history of cholecystectomy presents to ED with complaints of nausea and vomiting and epigastric abdominal pain for the past 4 days. Most of the history was given by her mother at bedside. Patient has been having nausea and vomiting and able to take oral diet, due to that patient is not taking her insulin doses. Patient has been having several episodes of vomiting. Denied any fever or chills. No headache or dizziness or lightheadedness. Patient does have history of prior multiple admissions with DKA in 2018. Patient also had cholecystectomy and liver biopsy which showed glycogen hepatopathy. Ultrasound of the liver showed enlarged heterogeneous appearance of the liver at 22.9 cm. Patient was transferred to [facility] in May 2017 due to concern for glycogen hepatopathy and possible glycogen storage disease. Patient also has history of left lower extremity foot drop and MRI of the brain was done which showed nonspecific white matter hyperintensity that may represent transient minimal flow of CSF and mild sinus disease. She also had lumbar spine MRI which showed posterior disc herniation at L4-L5 and L5-S1 without significant impingement on the spinal cord. As per her mother at bedside patient had MRI of the brain done at Dr. 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 As for her mother patient has been compulsive at times and intentionally pulling her hair. Patient does have large scalp wound due to pulling of her. Patient refused to see psychiatrist when she was at home. KUB x-ray showed nonspecific bowel gas pattern. Acetone positive. AG 19 on admission, UA negative, blood pressure has been elevated Review of Systems Constitutional: Patient denies any fever or chills . No generalized weakness or weight loss. Abdomen: Nausea vomiting and epigastric abdominal pain.. Cardiovascular: Patient denies any chest pain or short of breath no palpitations. Respiratory: patient denied any cough is from production. No shortness of breath Neurologic: Patient denied any numbness or tingling headache. Musculoskeletal: Patient denies any complaints of joint swelling or deformity. Skin: Negative Psychiatric: Negative Endocrine: No heat or cold intolerance. No recent weight gain. Genitourinary: No dysuria or hematuria. All other 14 point ROS negative except the above Past Medical History Past Medical History: Asthma, Diabetes Mellitus, GERD/Reflux, Syncope Additional Past Medical History / Comment(s): Pt recently admitted to [facility] on with DKA and elevated lactic acid, transaminitis, metabolic acidosis, glycogenic hepatology-she transferred to [facility] where she states they also diagnosed her with gastroparesis. Other Hx: Recent GI illness, recent UTI and completed antibiotic, IDDM type I, DKAs, syncope pt thinks related to hypoglycemia, back pain-bulging disc, L sided sciatica, ovarian cyst. History of Any Multi-Drug Resistant Organisms: MRSA Date of last positivie culture/infection: 03/2014 MDRO Source:: GROIN AREA Past Surgical History: Cholecystectomy Past Anesthesia/Blood Transfusion Reactions: No Reported Reaction Past Psychological History: Anxiety, Depression Additional Psychological History / Comment(s): Pt resides with her mother. She is independent. Smoking Status: Light tobacco smoker Past Alcohol Use History: None Reported Additional Past Alcohol Use History / Comment(s): Pt states she smokes very lightly, a pack of cigarettes can last 2-4 weeks. Past Drug Use History: Marijuana Additional Drug Use History / Comment(s): occasional marijuana use for pain mgt - Past Family History Mother History Unknown: Yes Family Medical History: No Reported History Additional Family Medical History / Comment(s): "heart disease" Father Family Medical History: Diabetes Mellitus Additional Family Medical History / Comment(s): Diabetes type II.; Heart disease Medications and Allergies Home Medications Medication Instructions Recorded Confirmed Type INSULIN ASPART (NovoLOG) [NovoLOG See Protocol SQ ACHS 12/03/16 05/08/18 History (formulary)] Insulin Glargine [Lantus] 26 units SQ HS 02/21/17 05/08/18 History INSULIN ASPART (NovoLOG) [NovoLOG 5 unit SQ AC-TID 12/02/17 05/08/18 History (formulary)] Ibuprofen [Motrin Ib] 800 mg PO TID PRN 12/02/17 05/08/18 History Cider Vinegar [Apple Cider Vinegar] 300 mg PO DAILY 01/03/18 05/08/18 History Levothyroxine Sodium [Synthroid] 25 mcg PO DAILY 01/03/18 05/08/18 History Lidocaine 4% Cream [Lmx 4] 1 applic TOPICAL TID 01/03/18 05/08/18 History Acetaminophen-Codeine 300-30mg 1 tab PO Q8HR 02/06/18 05/08/18 History [Tylenol w/codeine #3] Albuterol Inhaler [Ventolin Hfa 1 - 2 puff INHALATION RT-BID 02/06/18 05/08/18 History Inhaler] Cholecalciferol (Vitamin D3) 2,000 unit PO DAILY 02/06/18 05/08/18 History [Vitamin D3] Cyclobenzaprine [Flexeril] 5 mg PO BID 02/06/18 05/08/18 History Gabapentin [Neurontin] 300 mg PO BID 02/06/18 05/08/18 History Naproxen Sodium [Aleve] 440 mg PO TID 02/06/18 05/08/18 History Nortriptyline [Pamelor] 25 mg PO DAILY 02/06/18 05/08/18 History hydrOXYzine HCL [Atarax] 25 mg PO TID PRN 02/06/18 05/08/18 History Ondansetron Odt [Zofran Odt] 8 mg PO Q8HR PRN 05/08/18 05/08/18 History Allergies Allergy/AdvReac Type Severity Reaction Status Date / Time No Known Allergies Allergy Verified 05/08/18 17:51 Physical Exam Vitals: Vital Signs Temp Pulse Pulse Pulse Resp BP BP 05/09/18 14:02 102 H 176/106 05/09/18 13:00 98.2 F 101 H 18 179/111 05/09/18 04:45 99.2 F 92 16 166/107 05/09/18 02:24 99.0 F 112 H 22 138/92 05/09/18 02:00 120 H 22 157/96 05/09/18 01:52 97.6 F 118 H 28 H 162/104 05/09/18 00:59 114 H 22 171/111 05/09/18 00:36 114 H 18 169/103 05/09/18 00:22 124 H 21 159/112 05/08/18 23:30 99.5 F 122 H 20 152/103 05/08/18 22:32 121 H 20 163/104 05/08/18 22:26 99.9 F H 115 H 20 165/105 05/08/18 19:50 113 H 34 H 155/104 05/08/18 19:00 97 18 161/110 05/08/18 18:20 95 32 H 160/102 05/08/18 17:24 98.7 F 105 H 26 H 150/106 Pulse Ox 05/09/18 14:02 05/09/18 13:00 99 05/09/18 04:45 100 05/09/18 02:24 100 05/09/18 02:00 100 05/09/18 01:52 100 05/09/18 00:59 100 05/09/18 00:36 99 05/09/18 00:22 100 05/08/18 23:30 100 05/08/18 22:32 99 05/08/18 22:26 100 05/08/18 19:50 100 05/08/18 19:00 100 05/08/18 18:20 100 05/08/18 17:24 100 Intake and Output 05/08/18 05/09/18 05/09/18 22:59 06:59 14:59 Intake Total 3100 Balance 3100 Intake: Intake, IV Titration 2900 Amount Sodium Chloride 0.9% 1, 400 000 ml @ 125 mls/hr IV . Q8H JAMAL Rx#:[id number] Sodium Chloride 0.9% 1, 1000 000 ml @ 999 mls/hr IV . Q1H1M STA Rx#:[id number] Sodium Chloride 0.9% 1, 1000 000 ml @ 999 mls/hr IV . Q1H1M STA Rx#:[id number] Sodium Chloride 0.9% 500 500 ml 500 ml @ 999 mls/hr IV .Q31M STA Rx#:[id number] Oral 200 Other: Voiding Method Toilet # Voids 1 Weight 49.895 kg 49.895 kg PHYSICAL EXAMINATION: Patient is lying in the bed with mild acute distress, awake alert and oriented.. HEENT: Normocephalic. Neck is supple. Pupils reactive. Nostrils clear. Oral cavity is moist. Ears reveal no drainage. Neck reveals no JVD, carotid bruits, or thyromegaly. CHEST EXAMINATION: Trachea is central. Symmetrical expansion. Lung arthur clear to auscultation and percussion. CARDIAC: Normal S1, S2 with no gallops. No murmurs ABDOMEN: Soft. No obvious tenderness no guarding no rigidity. Bowel sounds normal. No organomegaly. No abdominal bruits. Extremities: reveal no edema. No clubbing or cyanosis Neurologically awake, alert, oriented x3 with well-coordinated movements. No focal deficits noted Skin: No rash or skin lesions. Psychiatric: Coperative. Anxious. Could not be assessed Musculoskeletal: No joint swelling or deformity. Normal range of motion. Results CBC & Chem 7: 05/09/18 10:55 05/09/18 10:55 Labs: Abnormal Lab Results - Last 24 Hours (Table) 05/08/18 05/08/18 05/08/18 Range/Units 18:16 18:16 18:21 WBC 12.3 H (3.8-10.6) k/uL Plt Count 628 H (150-450) k/uL Neutrophils # 9.1 H (1.3-7.7) k/uL VBG pCO2 (37-51) mmHg VBG HCO3 (24-28) mmol/L Chloride (98-107) mmol/L Carbon Dioxide 17 L (22-30) mmol/L Creatinine 0.40 L (0.52-1.04) mg/dL Glucose 274 H (74-99) mg/dL POC Glucose (mg/dL) 272 H (75-99) mg/dL Alkaline Phosphatase 226 H (38-126) U/L Amylase <30 L (30-110) U/L Lipase 20 L (23-300) U/L Urine Protein (Negative) Urine Glucose (UA) (Negative) Urine Ketones (Negative) 05/08/18 05/08/18 05/08/18 Range/Units 20:21 22:29 22:30 WBC (3.8-10.6) k/uL Plt Count (150-450) k/uL Neutrophils # (1.3-7.7) k/uL VBG pCO2 (37-51) mmHg VBG HCO3 (24-28) mmol/L Chloride (98-107) mmol/L Carbon Dioxide (22-30) mmol/L Creatinine (0.52-1.04) mg/dL Glucose (74-99) mg/dL POC Glucose (mg/dL) 301 H 291 H (75-99) mg/dL Alkaline Phosphatase (38-126) U/L Amylase (30-110) U/L Lipase (23-300) U/L Urine Protein Trace H (Negative) Urine Glucose (UA) 4+ H (Negative) Urine Ketones 4+ H (Negative) 05/08/18 05/08/18 05/08/18 Range/Units 22:33 22:33 22:33 WBC 15.3 H (3.8-10.6) k/uL Plt Count 500 H (150-450) k/uL Neutrophils # 13.4 H (1.3-7.7) k/uL VBG pCO2 32 L (37-51) mmHg VBG HCO3 16 L (24-28) mmol/L Chloride (98-107) mmol/L Carbon Dioxide 17 L (22-30) mmol/L Creatinine 0.39 L (0.52-1.04) mg/dL Glucose 297 H (74-99) mg/dL POC Glucose (mg/dL) (75-99) mg/dL Alkaline Phosphatase (38-126) U/L Amylase (30-110) U/L Lipase (23-300) U/L Urine Protein (Negative) Urine Glucose (UA) (Negative) Urine Ketones (Negative) 05/08/18 05/09/18 05/09/18 Range/Units 23:36 00:34 10:55 WBC 17.2 H (3.8-10.6) k/uL Plt Count 614 H (150-450) k/uL Neutrophils # 12.9 H (1.3-7.7) k/uL VBG pCO2 (37-51) mmHg VBG HCO3 (24-28) mmol/L Chloride (98-107) mmol/L Carbon Dioxide (22-30) mmol/L Creatinine (0.52-1.04) mg/dL Glucose (74-99) mg/dL POC Glucose (mg/dL) 245 H 185 H (75-99) mg/dL Alkaline Phosphatase (38-126) U/L Amylase (30-110) U/L Lipase (23-300) U/L Urine Protein (Negative) Urine Glucose (UA) (Negative) Urine Ketones (Negative) 05/09/18 05/09/18 Range/Units 10:55 11:18 WBC (3.8-10.6) k/uL Plt Count (150-450) k/uL Neutrophils # (1.3-7.7) k/uL VBG pCO2 (37-51) mmHg VBG HCO3 (24-28) mmol/L Chloride 108 H (98-107) mmol/L Carbon Dioxide 17 L (22-30) mmol/L Creatinine 0.35 L (0.52-1.04) mg/dL Glucose 187 H (74-99) mg/dL POC Glucose (mg/dL) 194 H (75-99) mg/dL Alkaline Phosphatase (38-126) U/L Amylase (30-110) U/L Lipase (23-300) U/L Urine Protein (Negative) Urine Glucose (UA) (Negative) Urine Ketones (Negative) Thrombosis Risk Factor Assmnt - DVT/VTE Prophylaxis DVT/VTE Prophylaxis: Pharmacologic Prophylaxis ordered - Choose All That Apply Any of the Below Risk Factors Present?: No Other Risk Factors: No Other congenital or acquired thrombophilia - If yes, enter type in comment: No Thrombosis Risk Factor Assessment Level: Very Low Risk Assessment and Plan Assessment: Intractable nausea vomiting or abdominal pain Acute diabetic ketoacidosis Diabetes type 1 Diabetic gastroparesis Hypothyroidism Uncontrolled hypertension Compulsive behavior History of Pineal gland enlargement showed up in MRI in February 2018 as per her mother History of glycogen hepatopathy Leukocytosis with WBC count 17.2 GI and DVT prophylaxis Plan: Patient be continued on symptomatic management for nausea vomiting with Reglan, Zofran and Tigan. Continued IV hydration. Continue with blood pressure medications. Patient will be started back on liquids and advance as tolerated. will start on long-acting insulin along with sliding scale. Oncology will be consulted due to recent MRI findings and psychiatric consult. Further recommendations based on the critical course. Total time taken greater than 75 minutes in patient care, discussed with the staff, counseling the patient and family as well as chart review of complex medical history and multiple admissions. Time with Patient: Greater than 30
[2018-05-10 02:12] LABS: Glucose,Whole Blood 52 mg/dL (75-99)
[2018-05-10] MEDS ORDERED: DEXTROSE 50%-WATER 50 ML SYRINGE IVP ONE (02:12)
[2018-05-10 02:37] LABS: Glucose,Whole Blood 180 mg/dL (75-99)
[2018-05-10] MEDS: SODIUM CHLORIDE 0.9% 1,000 ML IV SCH ×2 (02:55→23:59)
[2018-05-10] MEDS: MORPHINE SULFATE 4 MG/ML SYRINGE IV PRN ×2 (03:39→09:38)
[2018-05-10] MEDS: ONDANSETRON 4 MG/2 ML VIAL IVP PRN ×2 (03:45→14:57)
[2018-05-10] MEDS: INSULIN ASPART (NovoLOG) 100 UNIT/ML VIAL SQ SCH ×7 (06:23→20:40)
[2018-05-10 06:25] LABS: Glucose,Whole Blood 84 mg/dL (75-99)
[2018-05-10] MEDS: LEVOTHYROXINE 25 MCG TAB PO SCH (06:29)
[2018-05-10 06:32] LABS: Basophils # (A) 0.1 k/uL (0-0.2); Basophils % (A) 0 %; Eosinophils # (A) 0.2 k/uL (0-0.7); Eosinophils % (A) 2 %; HCT 34.1 % (34.0-46.0); Lymphocytes # (A) 4.4 k/uL (1.0-4.8); Lymphocytes % (A) 31 %; MCH 27.9 pg (25.0-35.0); MCHC 32.2 g/dL (31.0-37.0); MCV 86.7 fL (80.0-100.0); Mean Platelet Volume 5.7; Monocytes # (A) 0.5 k/uL (0-1.0); Monocytes % (A) 3 %; Neutrophils # (A) 8.8 k/uL (1.3-7.7); Neutrophils % (A) 63 %; Platelet Count 545 k/uL (150-450); RBC 3.94 m/uL (3.80-5.40); RDW 13.5 % (11.5-15.5); WBC 14.1 k/uL (3.8-10.6)
[2018-05-10 06:41] LABS: Anion Gap 8 mmol/L; Blood Urea Nitrogen 7 mg/dL (7-17); Carbon Dioxide 20 mmol/L (22-30); Chloride 112 mmol/L (98-107); Glucose 87 mg/dL (74-99); Sodium 140 mmol/L (137-145)
[2018-05-10] MEDS: METOCLOPRAMIDE 5 MG/ML 2 ML VIAL IVP PRN (07:57)
[2018-05-10] MEDS: FAMOTIDINE 20 MG/2 ML VIAL IV SCH (07:58)
[2018-05-10] MEDS ORDERED: CIDER VINEGAR 300 MG PO SCH (09:00)
[2018-05-10 11:18] LABS: Glucose,Whole Blood 135 mg/dL (75-99)
[2018-05-10] MEDS: HYDROmorphone 0.5 MG/0.5 ML SYRINGE IVP PRN ×3 (12:00→20:41)
[2018-05-10] MEDS: CHOLECALCIFEROL 1,000 UNIT TAB PO SCH (14:50)
[2018-05-10] MEDS: METOPROLOL TARTRATE 25 MG TAB PO SCH ×2 (14:50→20:40)
[2018-05-10] MEDS: GABAPENTIN 300 MG CAP PO SCH ×2 (14:50→20:41)
[2018-05-10] MEDS: NORTRIPTYLINE 25 MG CAP PO SCH (14:51)
[2018-05-10] MEDS: PANTOPRAZOLE 40 MG/10 ML VIAL IVP SCH ×2 (14:55→20:40)
[2018-05-10] MEDS: LORazepam 2 MG/ML INJ IV PRN ×2 (14:57→23:59)
[2018-05-10 16:44] LABS: Glucose,Whole Blood 150 mg/dL (75-99)
[2018-05-10 16:46] LABS: LDH 392 U/L (313-618)
[2018-05-10 17:03] LABS: HCG,Quantitative Serum <2.4 mIU/mL
--- NOTE | 2018-05-10 18:17 | P.CONS ---
History of Present Illness - Reason for Consult Consult date: 05/10/18 Hx of growth on Pineal gland Requesting physician: Onur Morse - Chief Complaint Nausea, Vomiting - History of Present Illness This is a 22- year old female with a significant past medical history for type one diabetes, diabetic gastroparesis, DKA, and CHolecystectomy. She presented to emergency for persistent nausea and vomiting x4 days, also with associated epigastric pain. She has not been able to tolerate PO intake well and on arrival experienced emesis x7-8. MRI of the brain was completed in March 2017 and concern for suspected pineal gland cyst, according to mother they have been following with neurology as outpatient and had another repeat MRI completed in Dr. Davidson office in [facility] which showed concern for enlargement of Pineal Gland abnormality and recommendation was made for a repeat MRI in 3 months. Therefore oncology was consulted for further evaluation. Patient seen with mother at bedside, over the past two years the patient has apparently been having worsening headaches, syncopal episodes, nausea, vomiting , seizure-like activity, and worsening of nonspecific pain. Patients mother is concerned and has many questions as she requested oncology consultation for pineal gland abnormality. Review of Systems A 14 point review of systems was assessed and completed and all negative except HPI. Past Medical History Past Medical History: Asthma, Diabetes Mellitus, GERD/Reflux, Syncope Additional Past Medical History / Comment(s): Pt recently admitted to [facility] on with DKA and elevated lactic acid, transaminitis, metabolic acidosis, glycogenic hepatology-she transferred to [facility] where she states they also diagnosed her with gastroparesis. Other Hx: Recent GI illness, recent UTI and completed antibiotic, IDDM type I, DKAs, syncope pt thinks related to hypoglycemia, back pain-bulging disc, L sided sciatica, ovarian cyst. History of Any Multi-Drug Resistant Organisms: MRSA Year Discovered:: 03/2014 MDRO Source:: GROIN AREA Past Surgical History: Cholecystectomy Past Anesthesia/Blood Transfusion Reactions: No Reported Reaction Past Psychological History: Anxiety, Depression Additional Psychological History / Comment(s): Pt resides with her mother. She is independent. Smoking Status: Light tobacco smoker Past Alcohol Use History: None Reported Additional Past Alcohol Use History / Comment(s): Pt states she smokes very lightly, a pack of cigarettes can last 2-4 weeks. Past Drug Use History: Marijuana Additional Drug Use History / Comment(s): occasional marijuana use for pain mgt - Past Family History Mother History Unknown: Yes Family Medical History: No Reported History Additional Family Medical History / Comment(s): "heart disease" Father Family Medical History: Diabetes Mellitus Additional Family Medical History / Comment(s): Diabetes type II.; Heart disease Medications and Allergies Home Medications Medication Instructions Recorded Confirmed Type INSULIN ASPART (NovoLOG) [NovoLOG See Protocol SQ ACHS 12/03/16 05/08/18 History (formulary)] Insulin Glargine [Lantus] 26 units SQ HS 02/21/17 05/08/18 History INSULIN ASPART (NovoLOG) [NovoLOG 5 unit SQ AC-TID 12/02/17 05/08/18 History (formulary)] Ibuprofen [Motrin Ib] 800 mg PO TID PRN 12/02/17 05/08/18 History Cider Vinegar [Apple Cider Vinegar] 300 mg PO DAILY 01/03/18 05/08/18 History Levothyroxine Sodium [Synthroid] 25 mcg PO DAILY 01/03/18 05/08/18 History Lidocaine 4% Cream [Lmx 4] 1 applic TOPICAL TID 01/03/18 05/08/18 History Acetaminophen-Codeine 300-30mg 1 tab PO Q8HR 02/06/18 05/08/18 History [Tylenol w/codeine #3] Albuterol Inhaler [Ventolin Hfa 1 - 2 puff INHALATION RT-BID 02/06/18 05/08/18 History Inhaler] Cholecalciferol (Vitamin D3) 2,000 unit PO DAILY 02/06/18 05/08/18 History [Vitamin D3] Cyclobenzaprine [Flexeril] 5 mg PO BID 02/06/18 05/08/18 History Gabapentin [Neurontin] 300 mg PO BID 02/06/18 05/08/18 History Naproxen Sodium [Aleve] 440 mg PO TID 02/06/18 05/08/18 History Nortriptyline [Pamelor] 25 mg PO DAILY 02/06/18 05/08/18 History hydrOXYzine HCL [Atarax] 25 mg PO TID PRN 02/06/18 05/08/18 History Ondansetron Odt [Zofran Odt] 8 mg PO Q8HR PRN 05/08/18 05/08/18 History Allergies Allergy/AdvReac Type Severity Reaction Status Date / Time No Known Allergies Allergy Verified 05/08/18 17:51 Physical Exam Vitals: Vital Signs Temp Pulse Pulse Resp BP Pulse Ox 05/10/18 11:47 99.5 F 105 H 18 161/105 100 05/10/18 08:00 102 H 05/10/18 04:45 98.4 F 100 18 141/75 96 05/10/18 00:00 102 H 127 H 17 05/09/18 19:45 97.9 F 102 H 127 H 17 155/88 100 Intake and Output 05/10/18 05/10/18 05/10/18 06:59 14:59 22:59 Intake Total 600 20 Balance 600 20 Intake: Intake, IV Titration 600 Amount Sodium Chloride 0.9% 1, 600 000 ml @ 125 mls/hr IV . Q8H JAMAL Rx#:[id number] Oral 20 Other: # Voids 2 Gen: Alert, No acute Distress Head: NC, NT Neck Supple, trachea midline Lungs: CTA Bilateral, no increased effort HEart RRR, S1s2 Adomen: Extremities Neuro - Non Focal. Results CBC & Chem 7: 05/10/18 05:53 05/10/18 05:53 Labs: Abnormal Lab Results - Last 24 Hours (Table) 05/09/18 05/09/18 05/10/18 Range/Units 17:15 20:49 02:05 WBC (3.8-10.6) k/uL Hgb (11.4-16.0) gm/dL Plt Count (150-450) k/uL Neutrophils # (1.3-7.7) k/uL Chloride (98-107) mmol/L Carbon Dioxide (22-30) mmol/L Creatinine (0.52-1.04) mg/dL POC Glucose (mg/dL) 306 H 183 H 52 L (75-99) mg/dL 05/10/18 05/10/18 05/10/18 Range/Units 02:29 05:53 05:53 WBC 14.1 H (3.8-10.6) k/uL Hgb 11.0 L (11.4-16.0) gm/dL Plt Count 545 H (150-450) k/uL Neutrophils # 8.8 H (1.3-7.7) k/uL Chloride 112 H (98-107) mmol/L Carbon Dioxide 20 L (22-30) mmol/L Creatinine 0.38 L (0.52-1.04) mg/dL POC Glucose (mg/dL) 180 H (75-99) mg/dL 05/10/18 Range/Units 11:17 WBC (3.8-10.6) k/uL Hgb (11.4-16.0) gm/dL Plt Count (150-450) k/uL Neutrophils # (1.3-7.7) k/uL Chloride (98-107) mmol/L Carbon Dioxide (22-30) mmol/L Creatinine (0.52-1.04) mg/dL POC Glucose (mg/dL) 135 H (75-99) mg/dL Abdominal x-ray: report reviewed MRI - head: report reviewed Assessment and Plan Plan: Assessment and Recommendations: 1. 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 - Recommend outpatient neurology follow-up 3. Normocytic Anemia: Mild - Will check iron studies, B12 normal, Plan: - Discussed with Neurology PA in which patient follows with and plan to follow- up as outpatient with neurology. Time with Patient: Greater than 30
[2018-05-10 20:13] LABS: Glucose,Whole Blood 183 mg/dL (75-99)
[2018-05-10] MEDS: INSULIN DETEMIR (LEVEMIR) 100 UNIT/ML SYR SQ SCH (21:05)
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
[2018-05-11 02:28] LABS: Glucose,Whole Blood 73 mg/dL (75-99)
[2018-05-11] MEDS: HYDROmorphone 0.5 MG/0.5 ML SYRINGE IVP PRN ×5 (02:29→22:21)
[2018-05-11 03:05] LABS: Glucose,Whole Blood 94 mg/dL (75-99)
[2018-05-11] MEDS: LEVOTHYROXINE 25 MCG TAB PO SCH (06:05)
[2018-05-11] MEDS: ONDANSETRON 4 MG/2 ML VIAL IVP PRN ×2 (06:11→13:34)
[2018-05-11 07:39] LABS: Glucose,Whole Blood 262 mg/dL (75-99)
[2018-05-11] MEDS: METOCLOPRAMIDE 5 MG/ML 2 ML VIAL IVP PRN ×2 (07:55→14:55)
[2018-05-11] MEDS: INSULIN ASPART (NovoLOG) 100 UNIT/ML VIAL SQ SCH ×7 (08:00→22:22)
[2018-05-11] MEDS: CHOLECALCIFEROL 1,000 UNIT TAB PO SCH (09:38)
[2018-05-11] MEDS: GABAPENTIN 300 MG CAP PO SCH ×2 (09:38→22:19)
[2018-05-11] MEDS: TRIMETHOBENZAMIDE 100 MG/ML 2 ML VIAL IM PRN (11:19)
[2018-05-11] MEDS: METOPROLOL TARTRATE 25 MG TAB PO SCH ×2 (11:33→22:19)
[2018-05-11] MEDS: NORTRIPTYLINE 25 MG CAP PO SCH (11:34)
[2018-05-11] MEDS: PANTOPRAZOLE 40 MG/10 ML VIAL IVP SCH ×2 (11:34→22:20)
[2018-05-11 12:17] LABS: Glucose,Whole Blood 155 mg/dL (75-99)
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
[2018-05-11 16:57] LABS: Glucose,Whole Blood 269 mg/dL (75-99)
[2018-05-11] MEDS: ONDANSETRON 4 MG/2 ML VIAL IVP SCH (18:33)
[2018-05-11] MEDS: SODIUM CHLORIDE 0.9% 1,000 ML IV SCH ×3 (18:33→22:01)
[2018-05-11 19:39] LABS: Glucose,Whole Blood 286 mg/dL (75-99)
--- NOTE | 2018-05-11 20:48 | P.CONS ---
History of Present Illness - Reason for Consult Consult date: 05/11/18 Nausea and vomiting Requesting physician: Karina Teran - Chief Complaint Abdominal pain, nausea and vomiting - History of Present Illness The patient is a 22-year-old female with a medical history significant for type 1 diabetes mellitus, prior episodes of DKA, diabetic gastroparesis, prior history of cholecystectomy, glycogen hepatopathy and depression who presented to the hospital with complaints of nausea, vomiting and abdominal pain. The patient reports abdominal pain occurring for approximately 4 days. She will reports that the pain was in the epigastric region of her abdomen and described as achy in nature. The patient had 2 days of nausea and vomiting unable to tolerate any oral intake. She reports vomiting up stomach acid and bile with no blood reported. The patient does have Zofran at home but reports that she did not feel it helps in controlling her symptoms. The patient reports that she is been taking Motrin intermittently for years but has been taking the medicine almost daily for the past few months for back pain. She denies any change in her bowel habits, diarrhea, constipation, hematochezia or melena. The patient has had EGD evaluation in the past prior to her cholecystectomy. She also has a medical history of glycogen hepatopathy found on liver biopsy performed during cholecystectomy. The patient was sent to [facility] for further evaluation at that time. Currently she is lying in bed with as needed medications including Reglan, Tigan, Zofran and Compazine. She is given Protonix therapy. She continues to report symptoms of nausea and decreased oral intake. Blood sugars have been erratic ranging from the 70s to over 200. Hemoglobin 11, platelet count 545,000, AST 36, ALT 42, total bilirubin 0.7, alkaline phosphatase 226. Review of Systems REVIEW OF SYSTEMS: CONSTITUTIONAL: Denies any fevers, chills, weight change or fatigue. CARDIOVASCULAR: Denies any chest pain, palpitations high or low blood pressures RESPIRATORY: Denies any shortness of breath, hemoptysis or cough. GENITOURINARY: No dysuria or hematuria. MUSCULOSKELETAL: No weakness reported. SKIN: Denies any new rashes or lesions, jaundice or pallor. PSYCHIATRIC: History significant for depression. NEUROLOGY: Does report intermittent headaches but none currently, denies any new focal deficits. EARS/NOSE/THROAT: No recent hearing change, congestion, nasal discharge or sore throat. EYES: No pain in eyes, discharge or change in vision. GASTROINTESTINAL: As per HPI. Past Medical History Past Medical History: Asthma, Diabetes Mellitus, GERD/Reflux, Syncope Additional Past Medical History / Comment(s): Pt recently admitted to [facility] on with DKA and elevated lactic acid, transaminitis, metabolic acidosis, glycogenic hepatology-she transferred to [facility] where she states they also diagnosed her with gastroparesis. Other Hx: Recent GI illness, recent UTI and completed antibiotic, IDDM type I, DKAs, syncope pt thinks related to hypoglycemia, back pain-bulging disc, L sided sciatica, ovarian cyst. History of Any Multi-Drug Resistant Organisms: MRSA Year Discovered:: 03/2014 MDRO Source:: GROIN AREA Past Surgical History: Cholecystectomy Past Anesthesia/Blood Transfusion Reactions: No Reported Reaction Past Psychological History: Anxiety, Depression Additional Psychological History / Comment(s): Pt resides with her mother. She is independent. Smoking Status: Light tobacco smoker Past Alcohol Use History: None Reported Additional Past Alcohol Use History / Comment(s): Pt states she smokes very lightly, a pack of cigarettes can last 2-4 weeks. Past Drug Use History: Marijuana Additional Drug Use History / Comment(s): occasional marijuana use for pain mgt - Past Family History Mother History Unknown: Yes Family Medical History: No Reported History Additional Family Medical History / Comment(s): "heart disease" Father Family Medical History: Diabetes Mellitus Additional Family Medical History / Comment(s): Diabetes type II.; Heart disease Medications and Allergies Home Medications Medication Instructions Recorded Confirmed Type INSULIN ASPART (NovoLOG) [NovoLOG See Protocol SQ ACHS 12/03/16 05/08/18 History (formulary)] Insulin Glargine [Lantus] 26 units SQ HS 02/21/17 05/08/18 History INSULIN ASPART (NovoLOG) [NovoLOG 5 unit SQ AC-TID 12/02/17 05/08/18 History (formulary)] Ibuprofen [Motrin Ib] 800 mg PO TID PRN 12/02/17 05/08/18 History Cider Vinegar [Apple Cider Vinegar] 300 mg PO DAILY 01/03/18 05/08/18 History Levothyroxine Sodium [Synthroid] 25 mcg PO DAILY 01/03/18 05/08/18 History Lidocaine 4% Cream [Lmx 4] 1 applic TOPICAL TID 01/03/18 05/08/18 History Acetaminophen-Codeine 300-30mg 1 tab PO Q8HR 02/06/18 05/08/18 History [Tylenol w/codeine #3] Albuterol Inhaler [Ventolin Hfa 1 - 2 puff INHALATION RT-BID 02/06/18 05/08/18 History Inhaler] Cholecalciferol (Vitamin D3) 2,000 unit PO DAILY 02/06/18 05/08/18 History [Vitamin D3] Cyclobenzaprine [Flexeril] 5 mg PO BID 02/06/18 05/08/18 History Gabapentin [Neurontin] 300 mg PO BID 02/06/18 05/08/18 History Naproxen Sodium [Aleve] 440 mg PO TID 02/06/18 05/08/18 History Nortriptyline [Pamelor] 25 mg PO DAILY 02/06/18 05/08/18 History hydrOXYzine HCL [Atarax] 25 mg PO TID PRN 02/06/18 05/08/18 History Ondansetron Odt [Zofran Odt] 8 mg PO Q8HR PRN 05/08/18 05/08/18 History Allergies Allergy/AdvReac Type Severity Reaction Status Date / Time No Known Allergies Allergy Verified 05/08/18 17:51 Physical Exam Vitals: Vital Signs Temp Pulse Pulse Resp BP Pulse Ox 05/11/18 20:18 99.0 F 107 H 16 138/85 97 05/11/18 13:00 99.0 F 114 H 136/95 97 05/11/18 09:46 102 H 130/78 05/11/18 08:05 97.6 F 114 H 18 182/109 100 05/11/18 00:30 16 05/10/18 23:47 98.6 F 73 16 115/75 99 05/10/18 20:50 102 H 16 Intake and Output 05/11/18 05/11/18 05/11/18 06:59 14:59 22:59 Intake Total 1250 750 200 Balance 1250 750 200 Intake: Intake, IV Titration 1000 750 150 Amount Sodium Chloride 0.9% 1, 1000 750 150 000 ml @ 75 mls/hr IV . [id number] Rx#:[id number] Oral 250 50 Other: Voiding Method Toilet # Voids 2 On physical examination, patient appears comfortable in no apparent distress. HEAD: Normocephalic, atraumatic. EYES: No scleral icterus. No conjunctival injection. MOUTH: No lesions, tongue midline. NECK: Trachea midline, no gross abnormalities. CHEST: Clear to auscultation with no wheezing or rhonchi appreciated. HEART: Regular rate and rhythm. ABDOMEN: Soft, obese. Bowel sounds are positive. No organomegaly. No guarding or rigidity. EXTREMITIES: No pedal edema. SKIN: No rashes, no jaundice. NEUROLOGIC: Alert and oriented x3. No focal deficits. Results CBC & Chem 7: 05/10/18 05:53 05/10/18 05:53 Labs: Abnormal Lab Results - Last 24 Hours (Table) 05/11/18 05/11/18 05/11/18 Range/Units 02:16 07:27 12:06 POC Glucose (mg/dL) 73 L 262 H 155 H (75-99) mg/dL 05/11/18 05/11/18 Range/Units 16:46 19:26 POC Glucose (mg/dL) 269 H 286 H (75-99) mg/dL Abdominal x-ray: report reviewed (KUB x-ray describing a non-acute abdomen.) Assessment and Plan (1) Nausea and vomiting Narrative/Plan: Patient presenting with uncontrolled blood sugars and suspicion for diabetic ketoacidosis with intractable nausea and vomiting. Likely symptoms are secondary to uncontrolled sugars and underlying gastroparesis, however given patient's history of Motrin use will investigate further with EGD to rule out esophagitis, gastritis, peptic ulcer disease or other etiology. Current Visit: No Status: Acute Code(s): R11.2 - NAUSEA WITH VOMITING, UNSPECIFIED SNOMED Code(s): 14931793 (2) Glycogenic hepatopathy Narrative/Plan: For history diagnosed on liver biopsy, for which the patient was seen and evaluated at [facility]. Current Visit: No Status: Acute Code(s): K75.81 - NONALCOHOLIC STEATOHEPATITIS (E[place]ENBERG) SNOMED Code(s): 617238218 (3) Abdominal pain, epigastric Current Visit: No Status: Resolved Code(s): R10.13 - EPIGASTRIC PAIN SNOMED Code(s): 66881215 Plan: Supportive care Okay for clear liquid diet, advance as tolerated We'll change Reglan and Zofran medications to [id number] Continue other antiemetic therapies as needed Continue Protonix therapy Nothing by mouth after midnight for EGD tomorrow Continue to follow symptomatically Thank you for allowing us to participate in the care of the patient we will continue to follow
--- NOTE | 2018-05-11 21:46 | PN ---
PROGRESS NOTE DATE OF SERVICE: 05/11/2018 This 22-year-old woman with a past medical history of multiple medical problems, including diabetes type 2, history of DKA, was admitted with severe abdominal symptoms. The blood sugar is elevated but there is no flor evidence of DKA was noted. The patient also complaining of back pain also. The patient also had evidence of gastroparesis previously. The patient has mild normocytic anemia. The patient had a growth in the pineal gland apparently. PAST MEDICAL HISTORY: Reviewed. REVIEW OF SYSTEMS: CARDIOVASCULAR: No angina or palpitations. RESPIRATORY: As mentioned earlier. GI: As mentioned earlier. no dysuria. Nervous system: No focal deficits. MEDICATIONS: Current medications are is also had the patient had gross in the PMH: PAST MEDICAL HISTORY: Reviewed. CURRENT MEDICATIONS ARE: 1. Vitamin D3 1000 mg daily. 2. Neurontin 300 mg b.i.d. 3. Apresoline 10 mg q6h p.r.n. 4. Dilaudid. 5. Atarax. 6. NovoLog a.c. and at bedtime. 7. Levemir 15 units subcu q.h.s. 8. Synthroid 25 mcg p.o. daily. 9. Ativan. 10.Reglan. 11.Lopressor. 12.Narcan. 13.Pamelor. 14.Protonix. 15.Tigan. PHYSICAL EXAM: Patient is alert, oriented x3. Pulse is 114, blood pressure 182/101. Respiration 18, temperature 97.6, pulse ox 100 percent on room air. HEENT: Conjunctivae normal. Oral mucosa moist. Neck is no jugular venous distention. No carotid bruit. No lymph node enlargement. Cardiovascular system: S1, S2 muffled. Respiratory: Breath sounds diminished in the bases. A few scattered rhonchi. No crackles. ABDOMEN: Soft. Mild diffuse tenderness in the epigastrium. No guarding. No rigidity. CENTRAL NERVOUS SYSTEM: No focal deficits. Legs are no edema. No swelling. LABS: WBC 14.1, hemoglobin is 11, sodium 140, potassium 4. UA noted. Acetone is positive. ASSESSMENT: 1. Uncontrolled diabetes mellitus with possible early diabetic ketoacidosis. 2. Persistent vomiting, possible acute gastritis or gastroparesis. 3. Diabetes mellitus type 1. 4. Hypothyroidism. 5. Uncontrolled hypertension. 6. Compulsive behavior. 7. 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 8. History of hepatopathy. 9. Leukocytosis with WBC 17.2. RECOMMENDATIONS AND DISCUSSION: Recommend to continue current medications, management and symptomatic treatment. Otherwise, at this time, I would recommend Gastroenterology consultation for possible endoscopies. Other than that, I would also recommend symptomatic treatment. Guarded prognosis because of multiple complex medical issues. Further recommendations to follow. See orders for details. MMODL / IJN: [id number] / KARTHIK
[2018-05-11] MEDS: METOCLOPRAMIDE 5 MG/ML 2 ML VIAL IVP SCH (22:21)
[2018-05-11] MEDS: INSULIN DETEMIR (LEVEMIR) 100 UNIT/ML SYR SQ SCH (22:31)
[2018-05-12] MEDS: ONDANSETRON 4 MG/2 ML VIAL IVP SCH ×5 (00:47→23:01)
[2018-05-12] MEDS: SODIUM CHLORIDE 0.9% 1,000 ML IV SCH ×2 (00:47→17:57)
[2018-05-12] MEDS: LEVOTHYROXINE 25 MCG TAB PO SCH (01:09)
[2018-05-12 02:14] LABS: Glucose,Whole Blood 77 mg/dL (75-99)
[2018-05-12] MEDS: METOCLOPRAMIDE 5 MG/ML 2 ML VIAL IVP SCH ×4 (02:16→20:07)
[2018-05-12] MEDS: HYDROmorphone 0.5 MG/0.5 ML SYRINGE IVP PRN ×6 (02:16→21:51)
[2018-05-12 07:26] LABS: Glucose,Whole Blood 300 mg/dL (75-99)
[2018-05-12] MEDS: PANTOPRAZOLE 40 MG/10 ML VIAL IVP SCH (08:43)
[2018-05-12] MEDS: METOPROLOL TARTRATE 25 MG TAB PO SCH ×2 (08:44→20:08)
[2018-05-12] MEDS: INSULIN ASPART (NovoLOG) 100 UNIT/ML VIAL SQ SCH ×4 (08:44→13:34)
[2018-05-12] MEDS: CHOLECALCIFEROL 1,000 UNIT TAB PO SCH (08:52)
[2018-05-12] MEDS: GABAPENTIN 300 MG CAP PO SCH ×2 (08:52→20:08)
[2018-05-12 09:18] LABS: Basophils # (A) 0.1 k/uL (0-0.2); Basophils % (A) 1 %; Eosinophils # (A) 0.3 k/uL (0-0.7); Eosinophils % (A) 2 %; HCT 38.2 % (34.0-46.0); HGB 11.9 gm/dL (11.4-16.0); Hypochromasia Slight; Lymphocytes # (A) 3.7 k/uL (1.0-4.8); Lymphocytes % (A) 30 %; MCH 28.1 pg (25.0-35.0); MCHC 31.2 g/dL (31.0-37.0); Mean Platelet Volume 6.2; Monocytes # (A) 0.5 k/uL (0-1.0); Monocytes % (A) 4 %; Neutrophils # (A) 7.5 k/uL (1.3-7.7); Neutrophils % (A) 61 %; Platelet Count 547 k/uL (150-450); RBC 4.24 m/uL (3.80-5.40); RDW 13.6 % (11.5-15.5); WBC 12.3 k/uL (3.8-10.6)
[2018-05-12 09:35] LABS: Anion Gap 19 mmol/L; Blood Urea Nitrogen 6 mg/dL (7-17); Calcium 9.4 mg/dL (8.4-10.2); Chloride 110 mmol/L (98-107); Glucose 318 mg/dL (74-99); Potassium 4.3 mmol/L (3.5-5.1); Sodium 138 mmol/L (137-145)
[2018-05-12 09:48] LABS: Carbon Dioxide 9 mmol/L (22-30)
[2018-05-12 11:59] LABS: Glucose,Whole Blood 183 mg/dL (75-99)
[2018-05-12] MEDS: NORTRIPTYLINE 25 MG CAP PO SCH (12:21)
[2018-05-12] MEDS: TRIMETHOBENZAMIDE 100 MG/ML 2 ML VIAL IM PRN (12:22)
[2018-05-12] MEDS ORDERED: LIDOCAINE 1% INJ 10MG/ML (20 ML MDV) ONE (13:34)
[2018-05-12] MEDS ORDERED: PROPOFOL 10 MG/ML 20 ML VIAL IV ONE (13:34)
[2018-05-12] MEDS ORDERED: IV FLUID CONTINUATION 700 ML IV ONE (13:41)
--- NOTE | 2018-05-12 13:56 | P.PCN ---
Date of Procedure: 05/12/18 Description of Procedure: BRIEF HISTORY: The patient is a 22-year-old female with a medical history significant for type 1 diabetes mellitus, prior episodes of DKA, diabetic gastroparesis, prior history of cholecystectomy, glycogen hepatopathy and depression who presented to the hospital with complaints of nausea, vomiting and abdominal pain. The patient reports abdominal pain occurring for approximately 4 days. She will reports that the pain was in the epigastric region of her abdomen and described as achy in nature. The patient had 2 days of nausea and vomiting unable to tolerate any oral intake. She reports vomiting up stomach acid and bile with no blood reported. The patient does have Zofran at home but reports that she did not feel it helps in controlling her symptoms. The patient reports that she is been taking Motrin intermittently for years but has been taking the medicine almost daily for the past few months for back pain. She denies any change in her bowel habits, diarrhea, constipation, hematochezia or melena. The patient has had EGD evaluation in the past prior to her cholecystectomy. Blood sugars have been erratic ranging from the 70s to over 200. Hemoglobin 11 , platelet count 545,000, AST 36, ALT 42, total bilirubin 0.7, alkaline phosphatase 226.. PROCEDURE PERFORMED: Esophagogastroduodenoscopy with biopsy. PREOPERATIVE DIAGNOSIS: Epigastric abdominal pain, intractable nausea and vomiting. ESTIMATED BLOOD LOSS: Minimal. IV sedation per anesthesia. PROCEDURE: After informed consent was obtained, the patient was brought into the endoscopy unit. IV sedation was administered by Anesthesia under continuous monitoring. Initially the Olympus GIF-190 video endoscope was inserted into the mouth. Esophagus intubated without any difficulty. It was gradually advanced into the stomach and duodenum and carefully examined. The bulb and the second part of the duodenum appeared normal. The scope at this time was withdrawn to the stomach, adequately insufflated with air, and upon careful examination, mucosa of the antrum, body, cardia and the fundus appeared grossly normal except for some mild scattered erythema of the antrum and body suggestive of gastritis with biopsies taken.. The scope was then withdrawn into the esophagus. The GE junction was located at 37 cm from the incisors. The esophagus appeared normal. There were no erosions or ulcerations seen and the patient tolerated the procedure well. IMPRESSION: 1. Mild gastritis antrum and body, biopsied. 2. No other pathology noted to explain patient's nausea, vomiting and abdominal pain. RECOMMENDATIONS: The findings of this examination were discussed with the patient. Okay to start clear liquid diet, advance as tolerated. Continue medical regimen including antiemetics around the clock and Protonix therapy. Await pathology from biopsies.
[2018-05-12] MEDS ORDERED: Potassium Replacement Protocol 1 EACH MISC MISCELLANE PRN (15:57)
[2018-05-12] MEDS ORDERED: INSULIN REGULAR BOLUS (FROM DRIP BAG) IV ONE (15:57)
[2018-05-12] MEDS ORDERED: Magnesium Replacement Protocol 1 EACH MISC MISCELLANE PRN (15:57)
[2018-05-12] MEDS ORDERED: SODIUM CHLORIDE 0.9% 1,000 ML IV SCH (16:00)
[2018-05-12] MEDS ORDERED: INSULIN REGULAR 100 UNIT in SODIUM CHLORIDE 0.9% 100 ML IV SCH (16:00)
[2018-05-12 17:07] LABS: Glucose,Whole Blood 300 mg/dL (75-99)
[2018-05-12 17:10] LABS: Basophils # (A) 0.1 k/uL (0-0.2); Basophils % (A) 1 %; Eosinophils # (A) 0.1 k/uL (0-0.7); Eosinophils % (A) 1 %; HCT 38.8 % (34.0-46.0); HGB 12.3 gm/dL (11.4-16.0); Hypochromasia Slight; Lymphocytes # (A) 3.1 k/uL (1.0-4.8); Lymphocytes % (A) 27 %; MCH 28.4 pg (25.0-35.0); MCHC 31.6 g/dL (31.0-37.0); MCV 89.8 fL (80.0-100.0); Mean Platelet Volume 6.6; Monocytes # (A) 0.6 k/uL (0-1.0); Monocytes % (A) 5 %; Neutrophils # (A) 7.5 k/uL (1.3-7.7); Neutrophils % (A) 65 %; Platelet Count 546 k/uL (150-450); RBC 4.32 m/uL (3.80-5.40); RDW 14.2 % (11.5-15.5); WBC 11.6 k/uL (3.8-10.6)
[2018-05-12 17:15] LABS: Anion Gap 22 mmol/L; Blood Urea Nitrogen 6 mg/dL (7-17); Chloride 110 mmol/L (98-107); Glucose 326 mg/dL (74-99); Phosphorus 2.7 mg/dL (2.5-4.5); Potassium 4.2 mmol/L (3.5-5.1); Sodium 138 mmol/L (137-145)
[2018-05-12 17:20] LABS: Carbon Dioxide 6 mmol/L (22-30)
--- NOTE | 2018-05-12 17:24 | P.PN ---
Subjective 22-year-old female was admitted secondary to DKA, which resolved the patient was switched to subcutaneous insulin patient was treated for gastritis. Because of intractable nausea vomiting as patient is going for her on upper GI endoscopy patient's Lantus was discontinued because of which patient went back into DKA today patient will be transferred to stepdown unit will be started on DKA protocol patient will be nothing by mouth until anion gap resolves. Was anion gap resolves patient will be started on Lantus and hour later IV insulin can be discontinued patient will be switched to IV normal saline and patient will be started on diet with pre-meal insulin. Patient is still nauseous today. Is complaining of abdominal pain. Constitutional: Denied any fatigue denied any fever. Cardio vascular: denied any chest pain, palpitations Gastrointestinal does have nausea denied any vomiting Pulmonary: Denied any shortness of breath cough Neurologic denied any new focal deficits All inpatient medications were reviewed and appropriate changes in these medications as dictated in the interval history and assessment and plan. Objective - Vital Signs Vital signs: Vital Signs Temp 99.0 F 05/12/18 08:56 Pulse 114 H 05/12/18 15:10 Resp 16 05/12/18 08:56 BP 133/83 05/12/18 15:10 Pulse Ox 99 05/12/18 08:56 Intake & Output 05/11/18 05/12/18 05/12/18 18:59 06:59 18:59 Intake Total 750 950 100 Balance 750 950 100 Weight 49.895 kg Intake: IV 100 Intake, IV Titration 750 900 Amount Sodium Chloride 0.9% 1, 750 900 000 ml @ 75 mls/hr IV . [id number] [facility] Rx#:[id number] Oral 50 Other: Voiding Method Toilet # Voids 2 2 - Exam PHYSICAL EXAMINATION: GENERAL: The patient is alert and oriented x3, not in any acute distress. thin built female HEENT: Pupils are round and equally reacting to light. EOMI. No scleral icterus. No conjunctival pallor. Normocephalic, atraumatic. No pharyngeal erythema. No thyromegaly. CARDIOVASCULAR: S1 and S2 present. No murmurs, rubs, or gallops. PULMONARY: Chest is clear to auscultation, no wheezing or crackles. ABDOMEN: Soft, minimal epigastric abdominal tenderness nondistended, normoactive bowel sounds. No palpable organomegaly. MUSCULOSKELETAL: No joint swelling or deformity. EXTREMITIES: No cyanosis, clubbing, or pedal edema. NEUROLOGICAL: Gross neurological examination did not reveal any focal deficits. SKIN: No rashes. - Labs CBC & Chem 7: 05/12/18 16:51 05/12/18 08:37 Labs: Abnormal Lab Results - Last 24 Hours (Table) 05/11/18 05/12/18 05/12/18 Range/Units 19: 07:13 08:37 WBC 12.3 H (3.8-10.6) k/uL Plt Count 547 H (150-450) k/uL Chloride (98-107) mmol/L Carbon Dioxide (22-30) mmol/L BUN (7-17) mg/dL Creatinine (0.52-1.04) mg/dL Glucose (74-99) mg/dL POC Glucose (mg/dL) 286 H 300 H (75-99) mg/dL 05/12/18 05/12/18 05/12/18 Range/Units 08:37 11:45 16:51 WBC 11.6 H (3.8-10.6) k/uL Plt Count 546 H (150-450) k/uL Chloride 110 H (98-107) mmol/L Carbon Dioxide 9 L* (22-30) mmol/L BUN 6 L (7-17) mg/dL Creatinine 0.50 L (0.52-1.04) mg/dL Glucose 318 H (74-99) mg/dL POC Glucose (mg/dL) 183 H (75-99) mg/dL 05/12/18 Range/Units 16:53 WBC (3.8-10.6) k/uL Plt Count (150-450) k/uL Chloride (98-107) mmol/L Carbon Dioxide (22-30) mmol/L BUN (7-17) mg/dL Creatinine (0.52-1.04) mg/dL Glucose (74-99) mg/dL POC Glucose (mg/dL) 300 H (75-99) mg/dL Assessment and Plan Plan: -diabetic ketoacidosis: Management as mentioned above. -Acute gastritis and abdominal pain secondary to both gastritis as well as diabetic ketoacidosis and nausea secondary to that -Diabetic gastroparesis -asthma without any acute exacerbation -Type 1 diabetes mellitus -Depression
[2018-05-12 18:36] LABS: Glucose,Whole Blood 259 mg/dL (75-99)
[2018-05-12 19:47] LABS: Glucose,Whole Blood 214 mg/dL (75-99)
[2018-05-12] MEDS: PANTOPRAZOLE 40 MG TABLET PO SCH (20:08)
[2018-05-12] MEDS: DEXTROSE 5%-0.9% NACL 1,000 ML IV SCH (20:32)
[2018-05-12 20:39] LABS: Glucose,Whole Blood 151 mg/dL (75-99)
[2018-05-12 20:58] LABS: Anion Gap 16 mmol/L; Blood Urea Nitrogen 6 mg/dL (7-17); Carbon Dioxide 14 mmol/L (22-30); Chloride 110 mmol/L (98-107); Glucose 139 mg/dL (74-99); Potassium 3.2 mmol/L (3.5-5.1); Sodium 140 mmol/L (137-145)
[2018-05-12 21:58] LABS: Glucose,Whole Blood 107 mg/dL (75-99)
[2018-05-12 22:39] LABS: Glucose,Whole Blood 89 mg/dL (75-99)
[2018-05-12] MEDS: POTASSIUM CHLORIDE ER 20 MEQ TAB.ER PO SCH (23:01)
[2018-05-12 23:02] LABS: Glucose,Whole Blood 86 mg/dL (75-99)
[2018-05-12 23:32] LABS: Glucose,Whole Blood 78 mg/dL (75-99)
[2018-05-13 00:03] LABS: Glucose,Whole Blood 91 mg/dL (75-99)
[2018-05-13] MEDS: POTASSIUM CHLORIDE ER 20 MEQ TAB.ER PO SCH (00:24)
[2018-05-13 01:19] LABS: Glucose,Whole Blood 147 mg/dL (75-99)
[2018-05-13 02:15] LABS: Anion Gap 14 mmol/L; Blood Urea Nitrogen 5 mg/dL (7-17); Carbon Dioxide 16 mmol/L (22-30); Chloride 109 mmol/L (98-107); Glucose 174 mg/dL (74-99); Phosphorus 2.7 mg/dL (2.5-4.5); Sodium 139 mmol/L (137-145)
[2018-05-13 02:18] LABS: Glucose,Whole Blood 180 mg/dL (75-99)
[2018-05-13] MEDS: HYDROmorphone 0.5 MG/0.5 ML SYRINGE IVP PRN ×2 (02:18→07:03)
[2018-05-13] MEDS: METOCLOPRAMIDE 5 MG/ML 2 ML VIAL IVP SCH ×4 (02:18→21:27)
[2018-05-13 02:31] LABS: Appearance,Urine Clear (Clear); Bilirubin,Urine Negative (Negative); Blood,Urine Negative (Negative); Color,Urine Colorless; Glucose,Urine (UA) Negative (Negative); Ketones,Urine 1+ (Negative); Leukocyte Esterase,Urine Trace (Negative); Mucus,Urine Rare /hpf; Nitrite,Urine Negative (Negative); PH, Urine 5.5 (5.0-8.0); Protein,Urine Negative (Negative); RBC,Urine 1 /hpf (0-5); Specific Gravity,Urine 1.004 (1.001-1.035); Squamous Epithelial Cell,Urine 1 /hpf (0-4); Urobilinogen,Urine <2.0 mg/dL (<2.0); WBC,Urine 5 /hpf (0-5)
[2018-05-13 03:16] LABS: Glucose,Whole Blood 195 mg/dL (75-99)
[2018-05-13 04:18] LABS: Glucose,Whole Blood 203 mg/dL (75-99)
[2018-05-13 05:15] LABS: Glucose,Whole Blood 158 mg/dL (75-99)
[2018-05-13 06:26] LABS: Glucose,Whole Blood 137 mg/dL (75-99)
[2018-05-13 06:41] LABS: Basophils # (A) 0.1 k/uL (0-0.2); Basophils % (A) 1 %; Eosinophils # (A) 0.4 k/uL (0-0.7); Eosinophils % (A) 3 %; HGB 12.5 gm/dL (11.4-16.0); Lymphocytes # (A) 4.3 k/uL (1.0-4.8); Lymphocytes % (A) 35 %; MCH 27.6 pg (25.0-35.0); MCV 86.4 fL (80.0-100.0); Mean Platelet Volume 5.9; Monocytes # (A) 0.5 k/uL (0-1.0); Monocytes % (A) 4 %; Neutrophils % (A) 56 %; Platelet Count 578 k/uL (150-450); RBC 4.51 m/uL (3.80-5.40); RDW 13.9 % (11.5-15.5); WBC 12.5 k/uL (3.8-10.6)
[2018-05-13 06:52] LABS: Anion Gap 11 mmol/L; Blood Urea Nitrogen 4 mg/dL (7-17); Calcium 9.5 mg/dL (8.4-10.2); Carbon Dioxide 18 mmol/L (22-30); Chloride 112 mmol/L (98-107); Glucose 143 mg/dL (74-99); Potassium 4.3 mmol/L (3.5-5.1); Sodium 141 mmol/L (137-145)
[2018-05-13] MEDS ORDERED: INSULIN DETEMIR (LEVEMIR) 100 UNIT/ML SYR SQ SCH ×3 (06:55→21:00)
[2018-05-13] MEDS: ONDANSETRON 4 MG/2 ML VIAL IVP SCH ×3 (07:03→17:10)
[2018-05-13] MEDS: LEVOTHYROXINE 25 MCG TAB PO SCH (07:04)
[2018-05-13] MEDS: DEXTROSE 5%-0.9% NACL 1,000 ML IV SCH (08:19)
[2018-05-13] MEDS: SODIUM CHLORIDE 0.9% 1,000 ML IV SCH ×2 (08:27→16:12)
[2018-05-13] MEDS: NORTRIPTYLINE 25 MG CAP PO SCH (08:31)
[2018-05-13] MEDS: GABAPENTIN 300 MG CAP PO SCH ×2 (08:31→21:27)
[2018-05-13] MEDS: PANTOPRAZOLE 40 MG TABLET PO SCH ×2 (08:31→21:27)
[2018-05-13] MEDS: CHOLECALCIFEROL 1,000 UNIT TAB PO SCH (08:31)
[2018-05-13] MEDS: METOPROLOL TARTRATE 25 MG TAB PO SCH ×2 (08:31→21:27)
[2018-05-13] MEDS: INSULIN ASPART (NovoLOG) 100 UNIT/ML VIAL SQ SCH ×3 (08:32→17:09)
[2018-05-13 11:15] LABS: Glucose,Whole Blood 259 mg/dL (75-99)
[2018-05-13] MEDS: HYDROcodone/APAP 5-325MG 1 EACH TAB PO PRN ×2 (11:29→18:57)
--- NOTE | 2018-05-13 12:27 | P.PN ---
Subjective 22-year-old female was admitted secondary to DKA, which resolved the patient was switched to subcutaneous insulin patient was treated for gastritis. Because of intractable nausea vomiting as patient is going for her on upper GI endoscopy patient's Lantus was discontinued because of which patient went back into DKA today patient will be transferred to stepdown unit will be started on DKA protocol patient will be nothing by mouth until anion gap resolves. Was anion gap resolves patient will be started on Lantus and hour later IV insulin can be discontinued patient will be switched to IV normal saline and patient will be started on diet with pre-meal insulin. Patient is still nauseous today. Is complaining of abdominal pain. 05/13/2018 patient was not appropriately transitioned to subcutaneous long-acting insulin patient will be given this long-acting insulin today will monitor her today. Patient DKA improved patient will be switched to oral pain medications. Constitutional: Denied any fatigue denied any fever. Cardio vascular: denied any chest pain, palpitations Gastrointestinal does have nausea denied any vomiting Pulmonary: Denied any shortness of breath cough Neurologic denied any new focal deficits All inpatient medications were reviewed and appropriate changes in these medications as dictated in the interval history and assessment and plan. Objective - Vital Signs Vital signs: Vital Signs Temp 98.0 F 05/13/18 08:00 Pulse 118 H 05/13/18 08:00 Resp 20 05/13/18 08:00 BP 136/93 05/13/18 08:00 Pulse Ox 100 05/13/18 08:00 Intake & Output 05/12/18 05/13/18 05/13/18 18:59 06:59 18:59 Intake Total 106.12 1226.451 240 Balance 106.12 1226.451 240 Weight 49.895 kg 50.2 kg Intake: IV 100 Intake, IV Titration 6.12 626.451 Amount Dextrose 5%-0.9% NaCl 1, 400 000 ml @ 100 mls/hr IV . Q10H [facility] Rx#:[id number] Insulin Regular 100 unit 6.12 26.451 In Sodium Chloride 0.9% 100 ml @ 0.1 UNITS/KG/HR 5.03 mls/hr IV .Q20H5M [facility] Rx#:[id number] Sodium Chloride 0.9% 1, 200 000 ml @ 200 mls/hr IV . Q5H [facility] Rx#:[id number] Oral 600 240 Other: Voiding Method Toilet # Voids 2 1 1 - Exam PHYSICAL EXAMINATION: GENERAL: The patient is alert and oriented x3, not in any acute distress. thin built female HEENT: Pupils are round and equally reacting to light. EOMI. No scleral icterus. No conjunctival pallor. Normocephalic, atraumatic. No pharyngeal erythema. No thyromegaly. CARDIOVASCULAR: S1 and S2 present. No murmurs, rubs, or gallops. PULMONARY: Chest is clear to auscultation, no wheezing or crackles. ABDOMEN: Soft, no abdominal tenderness nondistended, normoactive bowel sounds. No palpable organomegaly. MUSCULOSKELETAL: No joint swelling or deformity. EXTREMITIES: No cyanosis, clubbing, or pedal edema. NEUROLOGICAL: Gross neurological examination did not reveal any focal deficits. SKIN: No rashes. - Labs CBC & Chem 7: 05/13/18 05:47 05/13/18 05:47 Labs: Abnormal Lab Results - Last 24 Hours (Table) 05/12/18 05/12/18 05/12/18 Range/Units 16:51 16:51 16:53 WBC 11.6 H (3.8-10.6) k/uL Plt Count 546 H (150-450) k/uL Potassium (3.5-5.1) mmol/L Chloride 110 H (98-107) mmol/L Carbon Dioxide 6 L* (22-30) mmol/L BUN 6 L (7-17) mg/dL Creatinine 0.48 L (0.52-1.04) mg/dL Glucose 326 H (74-99) mg/dL POC Glucose (mg/dL) 300 H (75-99) mg/dL Urine Ketones (Negative) Ur Leukocyte Esterase (Negative) Urine Mucus (None) /hpf 05/12/18 05/12/18 05/12/18 Range/Units 18:23 19:35 20:34 WBC (3.8-10.6) k/uL Plt Count (150-450) k/uL Potassium 3.2 L (3.5-5.1) mmol/L Chloride 110 H (98-107) mmol/L Carbon Dioxide 14 L (22-30) mmol/L BUN 6 L (7-17) mg/dL Creatinine 0.51 L (0.52-1.04) mg/dL Glucose 139 H (74-99) mg/dL POC Glucose (mg/dL) 259 H 214 H (75-99) mg/dL Urine Ketones (Negative) Ur Leukocyte Esterase (Negative) Urine Mucus (None) /hpf 05/12/18 05/12/18 05/13/18 Range/Units 20:34 21:38 01:17 WBC (3.8-10.6) k/uL Plt Count (150-450) k/uL Potassium (3.5-5.1) mmol/L Chloride (98-107) mmol/L Carbon Dioxide (22-30) mmol/L BUN (7-17) mg/dL Creatinine (0.52-1.04) mg/dL Glucose (74-99) mg/dL POC Glucose (mg/dL) 151 H 107 H 147 H (75-99) mg/dL Urine Ketones (Negative) Ur Leukocyte Esterase (Negative) Urine Mucus (None) /hpf 05/13/18 05/13/18 05/13/18 Range/Units 01:41 02:16 02:20 WBC (3.8-10.6) k/uL Plt Count (150-450) k/uL Potassium (3.5-5.1) mmol/L Chloride 109 H (98-107) mmol/L Carbon Dioxide 16 L (22-30) mmol/L BUN 5 L (7-17) mg/dL Creatinine 0.42 L (0.52-1.04) mg/dL Glucose 174 H (74-99) mg/dL POC Glucose (mg/dL) 180 H (75-99) mg/dL Urine Ketones 1+ H (Negative) Ur Leukocyte Esterase Trace H (Negative) Urine Mucus Rare H (None) /hpf 05/13/18 05/13/18 05/13/18 Range/Units 03:14 04:15 05:13 WBC (3.8-10.6) k/uL Plt Count (150-450) k/uL Potassium (3.5-5.1) mmol/L Chloride (98-107) mmol/L Carbon Dioxide (22-30) mmol/L BUN (7-17) mg/dL Creatinine (0.52-1.04) mg/dL Glucose (74-99) mg/dL POC Glucose (mg/dL) 195 H 203 H 158 H (75-99) mg/dL Urine Ketones (Negative) Ur Leukocyte Esterase (Negative) Urine Mucus (None) /hpf 05/13/18 05/13/18 05/13/18 Range/Units 05:47 05:47 06:25 WBC 12.5 H (3.8-10.6) k/uL Plt Count 578 H (150-450) k/uL Potassium (3.5-5.1) mmol/L Chloride 112 H (98-107) mmol/L Carbon Dioxide 18 L (22-30) mmol/L BUN 4 L (7-17) mg/dL Creatinine 0.45 L (0.52-1.04) mg/dL Glucose 143 H (74-99) mg/dL POC Glucose (mg/dL) 137 H (75-99) mg/dL Urine Ketones (Negative) Ur Leukocyte Esterase (Negative) Urine Mucus (None) /hpf 05/13/18 Range/Units 11:11 WBC (3.8-10.6) k/uL Plt Count (150-450) k/uL Potassium (3.5-5.1) mmol/L Chloride (98-107) mmol/L Carbon Dioxide (22-30) mmol/L BUN (7-17) mg/dL Creatinine (0.52-1.04) mg/dL Glucose (74-99) mg/dL POC Glucose (mg/dL) 259 H (75-99) mg/dL Urine Ketones (Negative) Ur Leukocyte Esterase (Negative) Urine Mucus (None) /hpf Assessment and Plan Plan: -diabetic ketoacidosis: Patient said diabetic it is doses improved patient the will be given a long-acting insulin now along with pre-meal insulin patient is still with nauseous will be monitored one more night before I can discharge her. -Acute gastritis and abdominal pain secondary to both gastritis as well as diabetic ketoacidosis and nausea secondary to that -Diabetic gastroparesis -asthma without any acute exacerbation -Type 1 diabetes mellitus -Depression
[2018-05-13] MEDS ORDERED: SCOPOLAMINE 1.5MG/72HR PATCH TRANSDERM STA (12:53)
--- NOTE | 2018-05-13 12:53 | P.PN ---
Subjective Progress Note Date: 05/13/18 Principal diagnosis: Epigastric abdominal pain nausea vomiting Status post unremarkable EGD yesterday mild gastritis biopsies pending. Small nonbloody emesis this morning. White count 12.5. Hemoglobin 12.5. Afebrile. Objective - Vital Signs Vital signs: Vital Signs Temp 98.0 F 05/13/18 08:00 Pulse 118 H 05/13/18 08:00 Resp 20 05/13/18 08:00 BP 136/93 05/13/18 08:00 Pulse Ox 100 05/13/18 08:00 Intake & Output 05/12/18 05/13/18 05/13/18 18:59 06:59 18:59 Intake Total 106.12 1226.451 240 Balance 106.12 1226.451 240 Weight 49.895 kg 50.2 kg Intake: IV 100 Intake, IV Titration 6.12 626.451 Amount Dextrose 5%-0.9% NaCl 1, 400 000 ml @ 100 mls/hr IV . Q10H [facility] Rx#:[id number] Insulin Regular 100 unit 6.12 26.451 In Sodium Chloride 0.9% 100 ml @ 0.1 UNITS/KG/HR 5.03 mls/hr IV .Q20H5M [facility] Rx#:[id number] Sodium Chloride 0.9% 1, 200 000 ml @ 200 mls/hr IV . Q5H [facility] Rx#:[id number] Oral 600 240 Other: Voiding Method Toilet # Voids 2 1 1 - Exam General appearance: The patient is alert, oriented, in no acute distress. HET: Head is normocephalic and atraumatic. Pupils are equal and reactive. Oropharynx is clear without lesions. Neck: Supple without lymphadenopathy. Trachea midline. Heart: S1 S2. Regular rate and rhythm. Lungs: No crackles or wheezes are heard. Abdomen: Soft, mild epigastric tenderness, nondistended with bowel sounds. No peritoneal signs. No palpable organomegaly or masses. Extremities: Normal skin color and turgor. No cyanosis, rash, ulceration, clubbing, or edema. Radial and pedal pulses are 2/4 bilaterally. Neurological: No focal deficits. Strength and sensation are grossly intact. - Labs CBC & Chem 7: 05/13/18 05:47 05/13/18 05:47 Labs: Abnormal Lab Results - Last 24 Hours (Table) 05/12/18 05/12/18 05/12/18 Range/Units 16:51 16:51 16:53 WBC 11.6 H (3.8-10.6) k/uL Plt Count 546 H (150-450) k/uL Potassium (3.5-5.1) mmol/L Chloride 110 H (98-107) mmol/L Carbon Dioxide 6 L* (22-30) mmol/L BUN 6 L (7-17) mg/dL Creatinine 0.48 L (0.52-1.04) mg/dL Glucose 326 H (74-99) mg/dL POC Glucose (mg/dL) 300 H (75-99) mg/dL Urine Ketones (Negative) Ur Leukocyte Esterase (Negative) Urine Mucus (None) /hpf 05/12/18 05/12/18 05/12/18 Range/Units 18:23 19:35 20:34 WBC (3.8-10.6) k/uL Plt Count (150-450) k/uL Potassium 3.2 L (3.5-5.1) mmol/L Chloride 110 H (98-107) mmol/L Carbon Dioxide 14 L (22-30) mmol/L BUN 6 L (7-17) mg/dL Creatinine 0.51 L (0.52-1.04) mg/dL Glucose 139 H (74-99) mg/dL POC Glucose (mg/dL) 259 H 214 H (75-99) mg/dL Urine Ketones (Negative) Ur Leukocyte Esterase (Negative) Urine Mucus (None) /hpf 05/12/18 05/12/18 05/13/18 Range/Units 20:34 21:38 01:17 WBC (3.8-10.6) k/uL Plt Count (150-450) k/uL Potassium (3.5-5.1) mmol/L Chloride (98-107) mmol/L Carbon Dioxide (22-30) mmol/L BUN (7-17) mg/dL Creatinine (0.52-1.04) mg/dL Glucose (74-99) mg/dL POC Glucose (mg/dL) 151 H 107 H 147 H (75-99) mg/dL Urine Ketones (Negative) Ur Leukocyte Esterase (Negative) Urine Mucus (None) /hpf 0205/13/18 05/13/18 Range/Units 01:41 02:16 02:20 WBC (3.8-10.6) k/uL Plt Count (150-450) k/uL Potassium (3.5-5.1) mmol/L Chloride 109 H (98-107) mmol/L Carbon Dioxide 16 L (22-30) mmol/L BUN 5 L (7-17) mg/dL Creatinine 0.42 L (0.52-1.04) mg/dL Glucose 174 H (74-99) mg/dL POC Glucose (mg/dL) 180 H (75-99) mg/dL Urine Ketones 1+ H (Negative) Ur Leukocyte Esterase Trace H (Negative) Urine Mucus Rare H (None) /hpf 05/13/18 05/13/18 05/13/18 Range/Units 03:14 04:15 05:13 WBC (3.8-10.6) k/uL Plt Count (150-450) k/uL Potassium (3.5-5.1) mmol/L Chloride (98-107) mmol/L Carbon Dioxide (22-30) mmol/L BUN (7-17) mg/dL Creatinine (0.52-1.04) mg/dL Glucose (74-99) mg/dL POC Glucose (mg/dL) 195 H 203 H 158 H (75-99) mg/dL Urine Ketones (Negative) Ur Leukocyte Esterase (Negative) Urine Mucus (None) /hpf 05/13/18 05/13/18 05/13/18 Range/Units 05:47 05:47 06:25 WBC 12.5 H (3.8-10.6) k/uL Plt Count 578 H (150-450) k/uL Potassium (3.5-5.1) mmol/L Chloride 112 H (98-107) mmol/L Carbon Dioxide 18 L (22-30) mmol/L BUN 4 L (7-17) mg/dL Creatinine 0.45 L (0.52-1.04) mg/dL Glucose 143 H (74-99) mg/dL POC Glucose (mg/dL) 137 H (75-99) mg/dL Urine Ketones (Negative) Ur Leukocyte Esterase (Negative) Urine Mucus (None) /hpf 05/13/18 Range/Units 11:11 WBC (3.8-10.6) k/uL Plt Count (150-450) k/uL Potassium (3.5-5.1) mmol/L Chloride (98-107) mmol/L Carbon Dioxide (22-30) mmol/L BUN (7-17) mg/dL Creatinine (0.52-1.04) mg/dL Glucose (74-99) mg/dL POC Glucose (mg/dL) 259 H (75-99) mg/dL Urine Ketones (Negative) Ur Leukocyte Esterase (Negative) Urine Mucus (None) /hpf Assessment and Plan (1) Epigastric abdominal pain Current Visit: Yes Status: Acute Code(s): R10.13 - EPIGASTRIC PAIN SNOMED Code(s): 58487394 (2) Glycogenic hepatopathy Current Visit: No Status: Acute Code(s): K75.81 - NONALCOHOLIC STEATOHEPATITIS ([place]) SNOMED Code(s): 548886697 (3) Nausea and vomiting Current Visit: No Status: Acute Code(s): R11.2 - NAUSEA WITH VOMITING, UNSPECIFIED SNOMED Code(s): 15230233 (4) DKA (diabetic ketoacidoses) Current Visit: No Status: Resolved Code(s): E13.10 - OTH DIABETES MELLITUS WITH KETOACIDOSIS WITHOUT COMA SNOMED Code(s): 744780789 Plan: 1. Will add scopolamine patch. Continue with present medical therapy. Diet as tolerated. Assessment and plan a care discussed with Dr. Luong
[2018-05-13 16:42] LABS: Glucose,Whole Blood 141 mg/dL (75-99)
[2018-05-13 21:28] LABS: Glucose,Whole Blood 100 mg/dL (75-99)
[2018-05-14] MEDS: SODIUM CHLORIDE 0.9% 1,000 ML IV SCH ×2 (00:17→07:23)
[2018-05-14] MEDS: HYDROcodone/APAP 5-325MG 1 EACH TAB PO PRN ×3 (00:44→11:11)
[2018-05-14] MEDS: ONDANSETRON 4 MG/2 ML VIAL IVP SCH ×3 (00:44→11:11)
[2018-05-14] MEDS: METOCLOPRAMIDE 5 MG/ML 2 ML VIAL IVP SCH ×2 (02:26→09:12)
[2018-05-14 02:33] LABS: Glucose,Whole Blood 36 mg/dL (75-99)
[2018-05-14 02:34] LABS: Glucose,Whole Blood 31 mg/dL (75-99)
[2018-05-14 02:57] LABS: Glucose,Whole Blood 50 mg/dL (75-99)
[2018-05-14 03:11] LABS: Glucose,Whole Blood 72 mg/dL (75-99)
[2018-05-14] MEDS: LEVOTHYROXINE 25 MCG TAB PO SCH (06:45)
[2018-05-14 06:50] LABS: Glucose,Whole Blood 387 mg/dL (75-99)
[2018-05-14] MEDS ORDERED: INSULIN ASPART (NovoLOG) 100 UNIT/ML VIAL SQ ONE (07:17)
[2018-05-14] MEDS: INSULIN ASPART (NovoLOG) 100 UNIT/ML VIAL SQ SCH ×2 (07:43→12:51)
[2018-05-14 08:52] LABS: Basophils % (A) 0 %; Eosinophils # (A) 0.4 k/uL (0-0.7); Eosinophils % (A) 3 %; HCT 36.5 % (34.0-46.0); Lymphocytes # (A) 2.1 k/uL (1.0-4.8); Lymphocytes % (A) 20 %; MCH 28.3 pg (25.0-35.0); MCHC 32.9 g/dL (31.0-37.0); MCV 86.2 fL (80.0-100.0); Monocytes # (A) 0.4 k/uL (0-1.0); Monocytes % (A) 3 %; Neutrophils # (A) 7.5 k/uL (1.3-7.7); Neutrophils % (A) 72 %; Platelet Count 481 k/uL (150-450); RBC 4.24 m/uL (3.80-5.40); RDW 14.1 % (11.5-15.5); WBC 10.5 k/uL (3.8-10.6)
[2018-05-14 08:59] VITALS: RESP 16
[2018-05-14 09:06] LABS: Anion Gap 11 mmol/L; Blood Urea Nitrogen 11 mg/dL (7-17); Calcium 9.2 mg/dL (8.4-10.2); Carbon Dioxide 24 mmol/L (22-30); Chloride 104 mmol/L (98-107); Glucose 344 mg/dL (74-99); Potassium 3.9 mmol/L (3.5-5.1); Sodium 139 mmol/L (137-145)
[2018-05-14] MEDS: CHOLECALCIFEROL 1,000 UNIT TAB PO SCH (09:12)
[2018-05-14] MEDS: PANTOPRAZOLE 40 MG TABLET PO SCH (09:12)
[2018-05-14] MEDS: NORTRIPTYLINE 25 MG CAP PO SCH (09:12)
[2018-05-14] MEDS: GABAPENTIN 300 MG CAP PO SCH (09:12)
[2018-05-14] MEDS: METOPROLOL TARTRATE 25 MG TAB PO SCH (09:12)
[2018-05-14 12:19] LABS: Glucose,Whole Blood 280 mg/dL (75-99)
[2018-05-14 12:48] VITALS: BP 130/90; PULSE 107; TEMP 98.9
--- NOTE | 2018-05-14 14:48 | P.DS ---
Providers Date of admission: 05/08/18 23:39 Attending physician: Karina Teran Consults: 05/09/18 16:06 Consult Physician Routine Consulting Provider: Everton Warner Consult Reason/Comments: History of growth on pineal gland Do you want consulting provider notified?: Yes Consult Physician Urgent Consulting Provider: Shekhar Odell Consult Reason/Comments: anxiety Do you want consulting provider notified?: Yes Primary care physician: [facility] Course: 22-year-old female was admitted secondary to DKA, which resolved the patient was switched to subcutaneous insulin patient was treated for gastritis. Because of intractable nausea vomiting as patient is going for her on upper GI endoscopy patient's Lantus was discontinued because of which patient went back into DKA today patient will be transferred to stepdown unit will be started on DKA protocol patient will be nothing by mouth until anion gap resolves. Was anion gap resolves patient will be started on Lantus and hour later IV insulin can be discontinued patient will be switched to IV normal saline and patient will be started on diet with pre-meal insulin. Patient is still nauseous today. Is complaining of abdominal pain. 05/13/2018 patient was not appropriately transitioned to subcutaneous long-acting insulin patient will be given this long-acting insulin today will monitor her today. Patient DKA improved patient will be switched to oral pain medications. 05/14/2018 Patient is presently not in DKA there are highly fluctuating blood sugars because of over aggressive treatment for her mild hyperglycemia. Patient manages her blood sugars well at home from this perspective patient can be discharged patient is still quite a bit nauseous is requesting scopolamine patch I did give her prescription for scopolamine patch although scopolamine patch will increase her heart rate which is already high patient baseline heart rate is high. Patient will was given prescription for metoprolol and asked her to take increased dose of metoprolol if her heart rate goes up and only use scopolamine patch if absolutely needed. Patient will be discharged on Reglan as well. Patient appears to have severe gastroparesis along with gastritis patient's nonsteroidal anti-inflammatory medications were discontinued and patient is being discharged on Prilosec. Patient will benefit from evaluation for gastric pacemaker placement PHYSICAL EXAMINATION: GENERAL: The patient is alert and oriented x3, not in any acute distress. thin built female HEENT: Pupils are round and equally reacting to light. EOMI. No scleral icterus. No conjunctival pallor. Normocephalic, atraumatic. No pharyngeal erythema. No thyromegaly. CARDIOVASCULAR: S1 and S2 present. No murmurs, rubs, or gallops. PULMONARY: Chest is clear to auscultation, no wheezing or crackles. ABDOMEN: Soft, no abdominal tenderness nondistended, normoactive bowel sounds. No palpable organomegaly. MUSCULOSKELETAL: No joint swelling or deformity. EXTREMITIES: No cyanosis, clubbing, or pedal edema. NEUROLOGICAL: Gross neurological examination did not reveal any focal deficits. SKIN: No rashes. Assessment and Plan Plan: -diabetic ketoacidosis: -Acute gastritis and abdominal pain secondary to both gastritis as well as diabetic ketoacidosis -Diabetic gastroparesis -asthma without any acute exacerbation -Type 1 diabetes mellitus -Depression Patient Condition at Discharge: Fair Plan - Discharge Summary Discharge Rx Participant: Yes New Discharge Prescriptions: New Insulin Lispro [Admelog Solostar] 5 unit SQ TID-W/MEALS #1 insuln.pen Metoclopramide [Reglan] 5 mg PO ACHS PRN #30 tab PRN Reason: Nausea And Vomiting Metoprolol Tartrate [Lopressor] 25 mg PO BID #60 tab Omeprazole [PriLOSEC] 40 mg PO AC-BRKFST #30 capsule. Scopolamine [TransDerm Scop] 1 patch TRANSDERM Q72H #10 patch Continue INSULIN ASPART (NovoLOG) [NovoLOG (formulary)] See Protocol SQ ACHS Lidocaine 4% Cream [Lmx 4] 1 applic TOPICAL TID Levothyroxine Sodium [Synthroid] 25 mcg PO DAILY Cider Vinegar [Apple Cider Vinegar] 300 mg PO DAILY Acetaminophen-Codeine 300-30mg [Tylenol w/codeine #3] 1 tab PO Q8HR Cyclobenzaprine [Flexeril] 5 mg PO BID Albuterol Inhaler [Ventolin Hfa Inhaler] 1 - 2 puff INHALATION RT-BID hydrOXYzine HCL [Atarax] 25 mg PO TID PRN PRN Reason: Anxiety Nortriptyline [Pamelor] 25 mg PO DAILY Gabapentin [Neurontin] 300 mg PO BID Cholecalciferol (Vitamin D3) [Vitamin D3] 2,000 unit PO DAILY Ondansetron Odt [Zofran ODT] 8 mg PO Q8HR PRN PRN Reason: Nausea Changed Insulin Glargine [Lantus] 24 units SQ HS #1 vial Discontinued INSULIN ASPART (NovoLOG) [NovoLOG (formulary)] 5 unit SQ AC-TID Ibuprofen [Motrin Ib] 800 mg PO TID PRN PRN Reason: Pain Naproxen Sodium [Aleve] 440 mg PO TID Discharge Medication List INSULIN ASPART (NovoLOG) [NovoLOG (formulary)] See Protocol SQ ACHS 12/03/16 [ History] Cider Vinegar [Apple Cider Vinegar] 300 mg PO DAILY 01/03/18 [History] Levothyroxine Sodium [Synthroid] 25 mcg PO DAILY 01/03/18 [History] Lidocaine 4% Cream [Lmx 4] 1 applic TOPICAL TID 01/03/18 [History] Acetaminophen-Codeine 300-30mg [Tylenol w/codeine #3] 1 tab PO Q8HR 02/06/18 [ History] Albuterol Inhaler [Ventolin Hfa Inhaler] 1 - 2 puff INHALATION RT-BID 02/06/18 [ History] Cholecalciferol (Vitamin D3) [Vitamin D3] 2,000 unit PO DAILY 02/06/18 [History] Cyclobenzaprine [Flexeril] 5 mg PO BID 02/06/18 [History] Gabapentin [Neurontin] 300 mg PO BID 02/06/18 [History] Nortriptyline [Pamelor] 25 mg PO DAILY 02/06/18 [History] hydrOXYzine HCL [Atarax] 25 mg PO TID PRN 02/06/18 [History] Ondansetron Odt [Zofran ODT] 8 mg PO Q8HR PRN 05/08/18 [History] Insulin Glargine [Lantus] 24 units SQ HS #1 vial 05/14/18 [Rx] Insulin Lispro [Admelog Solostar] 5 unit SQ TID-W/MEALS #1 insuln.pen 05/14/18 [ Rx] Metoclopramide [Reglan] 5 mg PO ACHS PRN #30 tab 05/14/18 [Rx] Metoprolol Tartrate [Lopressor] 25 mg PO BID #60 tab 05/14/18 [Rx] Omeprazole [PriLOSEC] 40 mg PO AC-BRKFST #30 capsule. 05/14/18 [Rx] Scopolamine [TransDerm Scop] 1 patch TRANSDERM Q72H #10 patch 05/14/18 [Rx] Follow up Appointment(s)/Referral(s): Deborah Stearns MD [Primary Care Provider] - 3 Days Patient Instructions/Handouts: *[facility] - Scopalamine Patch Instructions, How to Take a Pulse (GEN), Tachycardia (GEN) Activity/Diet/Wound Care/Special Instructions: At discharge Pt needs Lantus and Admelog per her insurance. Follow up with your family Dr. within 1-2 days. Please keep an eye on your blood sugars and record them to show your Dr. It is recommended you do a blood sugar check around 2 am. You also need to monitor your heart rate throughout the day. Especially before and after your Metoprolol which is for your heart rate and keep a log so you can show your Dr. Smaller more frequent meals will help with the nausea. Remove your Scopalamine Patch FridayMay 16 at 2 pm. Wash your hands immediately after and Cleanse the area of removal as well. Discharge Disposition: HOME SELF-CARE
== END 2018-05-14 14:57 | disposition home or self-care (01) | DRG 638 ==
LOC: EC 17:00 → 3NMEDONC 23:39 → 3SCARD 05-09 12:47 → 4SSUR 05-10 17:22 → 3SCARD 05-12 18:15 → 6PED 05-13 16:52
PROVIDERS: ADMIT Hospitalist; ATTEND Hospitalist
PROC: 0DB78ZX Excision of Stomach, Pylorus, Via Natural or Artificial Opening Endoscopic, Diagnostic (ICD-10-PCS; principal; 2018-05-12 09:05)
DX: E10.10 Type 1 diabetes mellitus with ketoacidosis without coma (principal); E74.09 Other glycogen storage disease; D64.9 Anemia, unspecified; D72.829 Elevated white blood cell count, unspecified; E03.9 Hypothyroidism, unspecified; E10.43 Type 1 diabetes mellitus with diabetic autonomic (poly)neuropathy; F17.210 Nicotine dependence, cigarettes, uncomplicated; F32.9 Major depressive disorder, single episode, unspecified; F41.9 Anxiety disorder, unspecified; I10 Essential (primary) hypertension; J45.909 Unspecified asthma, uncomplicated; K21.9 Gastro-esophageal reflux disease without esophagitis; K29.00 Acute gastritis without bleeding; K31.84 Gastroparesis; K75.81 Nonalcoholic steatohepatitis (NASH); M51.26 Other intervertebral disc displacement, lumbar region; Z79.4 Long term (current) use of insulin; Z79.890 Hormone replacement therapy; Z79.899 Other long term (current) drug therapy; Z83.3 Family history of diabetes mellitus; F63.3 Trichotillomania; Z87.440 Personal history of urinary (tract) infections
CPT/HCPCS: 36415; 43239; 74018; 80048; 80051; 80053; 81001; 81003; 81025; 82009; 82105; 82150; 82565; 82803; 82947; 83605; 83615; 83690; 84100; 84520; 84702; 85025; 88305; 96361; 96374; 96375; 96376; 99285

== ENCOUNTER 2018-05-21 19:47 | Emergency (ER) | payer OTHER ==
[2018-05-21 19:58] VITALS: TEMP 98.5
[2018-05-21] MEDS ORDERED: SODIUM CHLORIDE 0.9% 1,000 ML IV STA (20:00)
[2018-05-21 20:17] LABS: Glucose,Whole Blood 325 mg/dL (75-99)
[2018-05-21 20:27] LABS: Basophils % (A) 0 %; Eosinophils # (A) 0.7 k/uL (0-0.7); Eosinophils % (A) 6 %; HCT 38.2 % (34.0-46.0); HGB 12.2 gm/dL (11.4-16.0); Lymphocytes # (A) 3.7 k/uL (1.0-4.8); Lymphocytes % (A) 32 %; MCH 28.1 pg (25.0-35.0); MCHC 31.8 g/dL (31.0-37.0); MCV 88.1 fL (80.0-100.0); Mean Platelet Volume 6.8; Monocytes # (A) 0.4 k/uL (0-1.0); Monocytes % (A) 3 %; Neutrophils # (A) 6.6 k/uL (1.3-7.7); Neutrophils % (A) 57 %; Platelet Count 482 k/uL (150-450); RBC 4.34 m/uL (3.80-5.40); RDW 14.4 % (11.5-15.5); WBC 11.5 k/uL (3.8-10.6)
[2018-05-21] MEDS ORDERED: INSULIN ASPART (NovoLOG) 100 UNIT/ML VIAL SQ ONE (20:49)
--- NOTE | 2018-05-21 20:52 | ED ---
General Adult HPI - General Chief complaint: Recheck/Abnormal Lab/Rx Stated complaint: Possible DKA Time Seen by Provider: 05/21/18 19:59 Source: patient, RN notes reviewed, old records reviewed Mode of arrival: ambulatory Limitations: no limitations - History of Present Illness Initial comments: 22-year-old female patient past medical history of type 2 diabetes, gastroparesis, presents to ED with variable blood sugars in the last 2 days. Patient reports that she has had blood sugars ranging from 200-500 the last 2 days. Patient reports that she has had increased thirst and has had slightly decreased urination. Patient presents to ED to ensure that she is not in DKA. Systemic: Pt denies fatigue, myalgia, fever/chills, rash. Pt denies weakness, night sweats, weight loss. Neuro: Pt denies headache, visual disturbances, syncope or pre-syncope. HEENT: Pt denies ocular discharge or irritation, otalgia, rhinorrhea, pharyngitis or notable lymphadenopathy. Cardiopulmonary: Pt denies chest pain, SOB, heart palpitations, dyspnea on exertion. Abdominal/GI: Pt denies abdominal pain, n/v/d. : Pt denies dysuria, burning w/ urination, frequency/urgency. Denies new onset urinary or bowel incontinence. MSK: Pt denies myalgia, loss of strength or function in extremities. Neuro: Pt denies new onset weakness, paresthesias. - Related Data Home Medications Medication Instructions Recorded Confirmed Levothyroxine Sodium [Synthroid] 25 mcg PO DAILY 01/03/18 05/21/18 Lidocaine 4% Cream [Lmx 4] 1 applic TOPICAL TID 01/03/18 05/21/18 Acetaminophen-Codeine 300-30mg 1 tab PO Q8HR 02/06/18 05/21/18 [Tylenol w/codeine #3] Albuterol Inhaler [Ventolin Hfa 1 - 2 puff INHALATION RT-BID 02/06/18 05/21/18 Inhaler] Cholecalciferol (Vitamin D3) 2,000 unit PO DAILY 02/06/18 05/21/18 [Vitamin D3] Cyclobenzaprine [Flexeril] 5 mg PO BID 02/06/18 05/21/18 Gabapentin [Neurontin] 300 mg PO BID 02/06/18 05/21/18 Nortriptyline [Pamelor] 50 mg PO DAILY 02/06/18 05/21/18 hydrOXYzine HCL [Atarax] 25 mg PO TID PRN 02/06/18 05/21/18 Ondansetron Odt [Zofran ODT] 8 mg PO Q8HR PRN 05/08/18 05/21/18 Previous Rx's Medication Instructions Recorded Insulin Glargine [Lantus] 24 units SQ HS #1 vial 05/14/18 Insulin Lispro [Admelog Solostar] 5 unit SQ TID-W/MEALS #1 insuln.pen 05/14/18 Metoclopramide [Reglan] 5 mg PO ACHS PRN #30 tab 05/14/18 Metoprolol Tartrate [Lopressor] 25 mg PO BID #60 tab 05/14/18 Omeprazole [PriLOSEC] 40 mg PO AC-BRKFST #30 capsule.dr 05/14/18 Cephalexin [Keflex] 500 mg PO Q12HR 10 Days #20 cap 05/21/18 Allergies Allergy/AdvReac Type Severity Reaction Status Date / Time No Known Allergies Allergy Verified 05/21/18 20:55 Review of Systems ROS Statement: Those systems with pertinent positive or pertinent negative responses have been documented in the HPI. ROS Other: All systems not noted in ROS Statement are negative. Past Medical History Past Medical History: Asthma, Diabetes Mellitus, GERD/Reflux, Syncope Additional Past Medical History / Comment(s): Pt recently admitted to [facility] on 06/12/17 with DKA and elevated lactic acid, transaminitis, metabolic acidosis, glycogenic hepatology-she transferred to [facility] where she states they also diagnosed her with gastroparesis. Other Hx: Recent GI illness, recent UTI and completed antibiotic, IDDM type I, DKAs, syncope pt thinks related to hypoglycemia, back pain-bulging disc, L sided sciatica, ovarian cyst. History of Any Multi-Drug Resistant Organisms: MRSA Date of last positivie culture/infection: 03/2014 MDRO Source:: [place] AREA Past Surgical History: Cholecystectomy Past Anesthesia/Blood Transfusion Reactions: No Reported Reaction Past Psychological History: Anxiety, Depression Smoking Status: Light tobacco smoker Past Alcohol Use History: None Reported Past Drug Use History: Marijuana - Past Family History Mother History Unknown: Yes Family Medical History: No Reported History Additional Family Medical History / Comment(s): "heart disease" Father Family Medical History: Diabetes Mellitus Additional Family Medical History / Comment(s): Diabetes type II.; Heart disease General Exam - General Exam Comments Initial Comments: Constitutional: NAD, AOX3, Pt has pleasant affect. HEENT: NC/AT, trachea midline, neck supple, no lymphadenopathy. Posterior pharynx non erythematous, without exudates. External ears appear normal, without discharge. Mucous membranes moist. Eyes PERRLA, EOM intact. There is no scleral icterus. No pallor noted. Cardiopulmonary: RRR, no murmurs, rubs or gallops, no JVD noted. Lungs CTAB in anterior and posterior arthur. No peripheral edema. Abdominal exam: Abdomen soft and non-distended. Abdomen non-tender to palpation in all 4 quadrants. Bowel sounds active in LLQ. No hepatosplenomegaly. No ecchymosis Neuro: CN II-XII grossly intact. No nuchal rigidity. MSK: No posterior calf tenderness bilaterally, homans sign negative bilaterally. Posterior tibialis and radial pulse +2 bilaterally. Sensation intact in upper and lower extremities. Full active ROM in upper and lower extremities, 5/5 stregnth. Limitations: no limitations Course Vital Signs 05/21/18 05/21/18 19:55 22:16 Temperature 98.5 F Pulse Rate 113 H 78 Respiratory 20 16 Rate Blood Pressure 108/66 111/78 O2 Sat by Pulse 100 98 Oximetry Medical Decision Making - Medical Decision Making 22-year-old female patient past medical history of type 2 diabetes, gastr oparesis, presents to ED with variable blood sugars in the last 2 days. Patient reports that she has had blood sugars ranging from 200-500 the last 2 days. Patient reports that she has had increased thirst and has had slightly decreased urination. Patient presents to ED to ensure that she is not in DKA. Pt VSS, afebrile. Physical exam did not display acute pathology. Laboratory investigations revealed mild leukocytosis of 11.5. CMP revealed normal anion gap, mild cytosis of 357. Mild increase in liver enzymes. UA revealed tract infection. Acetone is negative. Patient administered 1 L normal saline. Patient administered 6 units subq insulin. Pt to be dc will monitor blood sugar and administer insulin at home. Pt rx keflex for uti. Pt to f/u with PCP in 1-2 days. Pt to return to ED if new s/sx develop or if condition worsens in anyawy. Case dsicussed with Dr. Crystal. - Lab Data Result diagrams: 05/21/18 20:15 05/21/18 20:15 Lab Results 05/21/18 05/21/18 05/21/18 Range/Units 19:37 20:15 20:15 WBC 11.5 H (3.8-10.6) k/uL RBC 4.34 (3.80-5.40) m/uL Hgb 12.2 (11.4-16.0) gm/dL Hct 38.2 (34.0-46.0) % MCV 88.1 (80.0-100.0) fL MCH 28.1 (25.0-35.0) pg MCHC 31.8 (31.0-37.0) g/dL RDW 14.4 (11.5-15.5) % Plt Count 482 H (150-450) k/uL Neutrophils % 57 % Lymphocytes % 32 % Monocytes % 3 % Eosinophils % 6 % Basophils % 0 % Neutrophils # 6.6 (1.3-7.7) k/uL Lymphocytes # 3.7 (1.0-4.8) k/uL Monocytes # 0.4 (0-1.0) k/uL Eosinophils # 0.7 (0-0.7) k/uL Basophils # 0.0 (0-0.2) k/uL Sodium 138 (137-145) mmol/L Potassium 3.8 (3.5-5.1) mmol/L Chloride 103 (98-107) mmol/L Carbon Dioxide 25 (22-30) mmol/L Anion Gap 10 mmol/L BUN 10 (7-17) mg/dL Creatinine 0.36 L (0.52-1.04) mg/dL Est GFR (CKD-EPI)AfAm >90 (>60 ml/min/1.73 sqM) Est GFR (CKD-EPI)NonAf >90 (>60 ml/min/1.73 sqM) Glucose 357 H (74-99) mg/dL POC Glucose (mg/dL) (75-99) mg/dL POC Glu Air Route Controller ID Calcium 9.2 (8.4-10.2) mg/dL Total Bilirubin 0.3 (0.2-1.3) mg/dL AST 57 H (14-36) U/L ALT 53 H (9-52) U/L Alkaline Phosphatase 155 H (38-126) U/L Total Protein 6.5 (6.3-8.2) g/dL Albumin 4.1 (3.5-5.0) g/dL Urine Color Light Yellow Urine Appearance Clear (Clear) Urine pH 6.5 (5.0-8.0) Ur Specific [place] 1.023 (1.001-1.035) Urine Protein Negative (Negative) Urine Glucose (UA) 4+ H (Negative) Urine Ketones Negative (Negative) Urine Blood Negative (Negative) Urine Nitrite Negative (Negative) Urine Bilirubin Negative (Negative) Urine Urobilinogen <2.0 (<2.0) mg/dL Ur Leukocyte Esterase Small H (Negative) Urine RBC 1 (0-5) /hpf Urine WBC 21 H (0-5) /hpf Ur Squamous Epith Cells 2 (0-4) /hpf Hyaline Casts 1 (0-2) /lpf Acetone, Qual Negative (Negative) 05/21/18 05/21/18 Range/Units 20:16 22:14 WBC (3.8-10.6) k/uL RBC (3.80-5.40) m/uL Hgb (11.4-16.0) gm/dL Hct (34.0-46.0) % MCV (80.0-100.0) fL MCH (25.0-35.0) pg MCHC (31.0-37.0) g/dL RDW (11.5-15.5) % Plt Count (150-450) k/uL Neutrophils % % Lymphocytes % % Monocytes % % Eosinophils % % Basophils % % Neutrophils # (1.3-7.7) k/uL Lymphocytes # (1.0-4.8) k/uL Monocytes # (0-1.0) k/uL Eosinophils # (0-0.7) k/uL Basophils # (0-0.2) k/uL Sodium (137-145) mmol/L Potassium (3.5-5.1) mmol/L Chloride (98-107) mmol/L Carbon Dioxide (22-30) mmol/L Anion Gap mmol/L BUN (7-17) mg/dL Creatinine (0.52-1.04) mg/dL Est GFR (CKD-EPI)AfAm (>60 ml/min/1.73 sqM) Est GFR (CKD-EPI)NonAf (>60 ml/min/1.73 sqM) Glucose (74-99) mg/dL POC Glucose (mg/dL) 325 H 336 H (75-99) mg/dL POC Glu Air Route Controller ID Shiva GeorgeYajaira George Yajaira Calcium (8.4-10.2) mg/dL Total Bilirubin (0.2-1.3) mg/dL AST (14-36) U/L ALT (9-52) U/L Alkaline Phosphatase (38-126) U/L Total Protein (6.3-8.2) g/dL Albumin (3.5-5.0) g/dL Urine Color Urine Appearance (Clear) Urine pH (5.0-8.0) Ur Specific [place] (1.001-1.035) Urine Protein (Negative) Urine Glucose (UA) (Negative) Urine Ketones (Negative) Urine Blood (Negative) Urine Nitrite (Negative) Urine Bilirubin (Negative) Urine Urobilinogen (<2.0) mg/dL Ur Leukocyte Esterase (Negative) Urine RBC (0-5) /hpf Urine WBC (0-5) /hpf Ur Squamous Epith Cells (0-4) /hpf Hyaline Casts (0-2) /lpf Acetone, Qual (Negative) Disposition Clinical Impression: Hyperglycemia, UTI (urinary tract infection) Disposition: HOME SELF-CARE Condition: Stable Instructions (If sedation given, give patient instructions): Urinary Tract Infection in Women (DC), Diabetic Hyperglycemia (ED) Additional Instructions: Patient to adhere to previously discussed treatment plan and will take medication(s) as directed. Patient to follow up with PCP in 1-2 days. Patient to return to ED if symptoms do not improve. Please follow-up with primary care provider in 1-2 days for continued evaluation of glucose control and UTI. Return to ER for signs symptoms develop or if condition worsens in any way. Please take keflex as prescribed. Prescriptions: Cephalexin [Keflex] 500 mg PO Q12HR 10 Days #20 cap Is patient prescribed a controlled substance at d/c from ED?: No Referrals: Deborah Stearns MD [Primary Care Provider] - 1-2 days
[2018-05-21 20:58] LABS: ALT 53 U/L (9-52); AST 57 U/L (14-36); Albumin 4.1 g/dL (3.5-5.0); Alkaline Phosphatase 155 U/L (38-126); Anion Gap 10 mmol/L; Blood Urea Nitrogen 10 mg/dL (7-17); Calcium 9.2 mg/dL (8.4-10.2); Carbon Dioxide 25 mmol/L (22-30); Chloride 103 mmol/L (98-107); Glucose 357 mg/dL (74-99); Potassium 3.8 mmol/L (3.5-5.1); Sodium 138 mmol/L (137-145); Total Bilirubin 0.3 mg/dL (0.2-1.3); Total Protein 6.5 g/dL (6.3-8.2)
[2018-05-21 21:54] LABS: Appearance,Urine Clear (Clear); Bilirubin,Urine Negative (Negative); Blood,Urine Negative (Negative); Color,Urine Light Yellow; Glucose,Urine (UA) 4+ (Negative); Hyaline Casts,Urine 1 /lpf (0-2); Ketones,Urine Negative (Negative); Leukocyte Esterase,Urine Small (Negative); Nitrite,Urine Negative (Negative); PH, Urine 6.5 (5.0-8.0); Protein,Urine Negative (Negative); RBC,Urine 1 /hpf (0-5); Specific Gravity,Urine 1.023 (1.001-1.035); Squamous Epithelial Cell,Urine 2 /hpf (0-4); Urobilinogen,Urine <2.0 mg/dL (<2.0)
[2018-05-21 22:16] LABS: Glucose,Whole Blood 336 mg/dL (75-99)
[2018-05-21 22:18] VITALS: BP 111/78; PULSE 78; RESP 16
== END 2018-05-21 22:19 | disposition home or self-care (01) ==
LOC: EC 19:47
DX: E11.65 Type 2 diabetes mellitus with hyperglycemia (principal); N39.0 Urinary tract infection, site not specified; D72.829 Elevated white blood cell count, unspecified; R74.0 Nonspecific elevation of levels of transaminase and lactic acid dehydrogenase [LDH]; J45.909 Unspecified asthma, uncomplicated; E11.43 Type 2 diabetes mellitus with diabetic autonomic (poly)neuropathy; K31.84 Gastroparesis; F32.9 Major depressive disorder, single episode, unspecified; F41.9 Anxiety disorder, unspecified; F17.200 Nicotine dependence, unspecified, uncomplicated; Z79.890 Hormone replacement therapy; Z79.891 Long term (current) use of opiate analgesic; Z79.899 Other long term (current) drug therapy; Z86.14 Personal history of Methicillin resistant Staphylococcus aureus infection; Z83.3 Family history of diabetes mellitus
CPT/HCPCS: 36415; 80053; 81001; 82009; 85025; 87086; 96360; 96361; 99285

== ENCOUNTER → 2018-06-04 | Day surgery (SDC) | payer OTHER ==
[~2018-06-04] MED LIST: IV FLUID CONTINUATION 1,000 ML IV ONE; SODIUM CHLORIDE 0.9% 1,000 ML IV SCH
--- NOTE | 2018-06-04 11:03 | P.PCN ---
Preoperative Diagnosis: Recurrent dizzy spells and syncope Twelve-lead ECG Sinus rhythm 94 beats a minute normal NH narrow QRS normal ST segments normal QT interval Tilt table test per protocol Baseline blood pressure 104/66 we will mercury Baseline 190 beats a minute with upright position the patient's blood pressure dropped to 83/53 mm his mercury once a heart rate increased 206 beats a thereafter the blood pressure remained in the mid 80s to low 90s while the heart rates remained between 110-120 beats a minute The patient felt sweaty and nauseous and anxious She could not tolerated the procedure any further beyond 28 minutes and os to be laid supine When she was laid supine her blood pressure improved to 124/74 on millimeters of mercury and a pulse rate improved to 65 beats a minute Impression Orthostatic hypotension syndrome Patient has diabetes and is on insulin She is also on nortriptyline Suggest Stop nortriptyline and reevaluate symptoms Beta blockers would not help this condition Diabetic autonomic neuropathy should be considered in the differential
== END | disposition home or self-care (01) ==
LOC: CATHEP 08:28
PROVIDERS: ATTEND Internal Medicine Clinical Cardiac Electrophysiology
DX: I95.1 Orthostatic hypotension (principal); E11.9 Type 2 diabetes mellitus without complications; Z79.4 Long term (current) use of insulin
CPT/HCPCS: 81025; 93660

== ENCOUNTER → 2018-06-20 | Outpatient (CLI) | payer OTHER ==
[2018-06-20 19:09] LABS: Hepatitis A Antibody IgM Non-Reactive (Non-Reactive); Hepatitis B Core IgM Non-Reactive (Non-Reactive)
[2018-06-22 11:05] LABS: HIV 1 AB Non-Reactive (Non-Reactive); HIV AB P24 Non-Reactive (Non-Reactive); HIV P24 AG Non-Reactive (Non-Reactive)
== END | disposition home or self-care (01) ==
LOC: LABWHC1 10:32
PROVIDERS: ATTEND Internal Medicine Infectious Disease
DX: I88.9 Nonspecific lymphadenitis, unspecified (principal); L92.9 Granulomatous disorder of the skin and subcutaneous tissue, unspecified; L98.9 Disorder of the skin and subcutaneous tissue, unspecified
CPT/HCPCS: 36415; 80074; 84443; 86780; 87390

== ENCOUNTER → 2018-06-27 | Outpatient (CLI) | payer OTHER | END | disposition home or self-care (01) | LOC: LABWHC1 08:44 | PROVIDERS: ATTEND Internal Medicine Infectious Disease | DX: I88.9 Nonspecific lymphadenitis, unspecified (principal); L92.9 Granulomatous disorder of the skin and subcutaneous tissue, unspecified; L98.9 Disorder of the skin and subcutaneous tissue, unspecified | CPT/HCPCS: 36415; 82180 ==

== ENCOUNTER → 2018-07-03 | Outpatient (CLI) | payer OTHER ==
[2018-07-03 14:04] LABS: Blood Urea Nitrogen 11 mg/dL (7-17)
--- NOTE | 2018-07-04 17:16 | CT ---
EXAMINATION TYPE: CT brain wo/w con DATE OF EXAM: 07/03/2018 COMPARISON: The MRI of [facility] is unavailable for comparison. INDICATION: 21-year-old female Headaches. Abnormal MRI at [facility]. DLP: 2270 mGycm, Automated exposure control for dose reduction was used. TECHNIQUE: Contiguous axial scanning of the brain before and after administration of 100 mL Isovue-30 0 IV contrast. Coronal and sagittal reconstructions performed. FINDINGS: There is no evidence of acute intracranial hemorrhage, acute ischemic changes, mass, mass-effect, or extra-axial fluid collection. There is no effacement of cerebral sulci or basal subarachnoid cister ns. There is no hydrocephalus. There is no midline shift. Morales-white matter distinction is preserv ed. 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 This can be correlated with findings on the patient's outside MRI when it is ma de available. After contrast administration, no enhancing lesions are seen. Portal venous system is patent. Orbits and globes are intact. Paranasal sinuses and mastoid air cells well pneumatized. IMPRESSIONS: 1. No acute intracranial abnormality seen. No enhancing intracranial lesions. 2. 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 This is indeterminate between Chiari I malformati on and benign cerebellar tonsillar ectopia. We do note a slightly beaked configuration to the tonsils . This can be more clearly evaluated on MRI. Correlate with findings on patient's recent outside MRI.
== END | disposition home or self-care (01) ==
LOC: RADCTMAIN 13:03
PROVIDERS: ATTEND Psychiatry & Neurology Neurology
DX: R51 Headache (principal); Z88.2 Allergy status to sulfonamides
CPT/HCPCS: 82565; 84520; 70470; 36415; Q9967

== ENCOUNTER 2018-07-04 16:34 | Inpatient (IN) | payer OTHER ==
[2018-07-04] MEDS ORDERED: SODIUM CHLORIDE 0.9% 2,000 ML IV STA (16:54)
[2018-07-04] MEDS ORDERED: ONDANSETRON 4 MG/2 ML VIAL IVP STA (16:54)
--- NOTE | 2018-07-04 16:59 | ED ---
Nausea/Vomiting/Diarrhea HPI - General Chief complaint: Nausea/Vomiting/Diarrhea Stated complaint: vomiting/weakness Time Seen by Provider: 07/04/18 16:46 Source: patient, RN notes reviewed Mode of arrival: ambulatory Limitations: no limitations - History of Present Illness Initial comments: 22-year-old female presents emergency Department with chief complaint of nausea vomiting abdominal discomfort. Patient states she has multiple medical issues. Patient states she has a known brittle diabetic on insulin injections. Patient states she does not have an insulin pump. Patient states she's had no abdominal pain, nausea vomiting just generalized fatigue. Patient also states that she aches all over. Patient was questioned about her heart rate states that she is always tachycardic states that she cannot medications in the past but this caused her to have hypotension so she was removed. Patient states her heart rate has been up to 150 to 160s patient denies any palpitations or chest pain. She denies any fevers or chills no diarrhea that she noted. Denies any chance . - Related Data Home Medications Medication Instructions Recorded Confirmed Levothyroxine Sodium [Synthroid] 25 mcg PO DAILY 01/03/18 06/04/18 Lidocaine 4% Cream [Lmx 4] 1 applic TOPICAL TID 01/03/18 06/04/18 Acetaminophen-Codeine 300-30mg 1 tab PO Q8HR 02/06/18 06/04/18 [Tylenol w/codeine #3] Albuterol Inhaler [Ventolin Hfa 1 - 2 puff INHALATION RT-BID 02/06/18 06/04/18 Inhaler] Cholecalciferol (Vitamin D3) 2,000 unit PO DAILY 02/06/18 06/04/18 [Vitamin D3] Cyclobenzaprine [Flexeril] 5 mg PO BID 02/06/18 06/04/18 Gabapentin [Neurontin] 300 mg PO BID 02/06/18 06/04/18 Nortriptyline [Pamelor] 50 mg PO DAILY 02/06/18 06/04/18 hydrOXYzine HCL [Atarax] 25 mg PO TID PRN 02/06/18 06/04/18 Ondansetron Odt [Zofran ODT] 8 mg PO Q8HR PRN 05/08/18 06/04/18 Insulin Glargine [Lantus] 15 units SQ HS 06/04/18 06/04/18 Metoprolol Tartrate [Lopressor] 25 mg PO DAILY 06/04/18 06/04/18 Previous Rx's Medication Instructions Recorded Insulin Lispro [Admelog Solostar] 5 unit SQ TID-W/MEALS #1 insuln.pen 05/14/18 Metoclopramide [Reglan] 5 mg PO ACHS PRN #30 tab 05/14/18 Omeprazole [PriLOSEC] 40 mg PO AC-BRKFST #30 capsule.dr 05/14/18 Cephalexin [Keflex] 500 mg PO Q12HR 10 Days #20 cap 05/21/18 Allergies Allergy/AdvReac Type Severity Reaction Status Date / Time No Known Allergies Allergy Verified 07/04/18 16:43 Review of Systems ROS Statement: Those systems with pertinent positive or pertinent negative responses have been documented in the HPI. ROS Other: All systems not noted in ROS Statement are negative. Past Medical History Past Medical History: Asthma, Diabetes Mellitus, GERD/Reflux, Syncope Additional Past Medical History / Comment(s): Pt recently admitted to [facility] on 06/12/17 with DKA and elevated lactic acid, transaminitis, metabolic acidosis, glycogenic hepatology-she transferred to [facility] where she states they also diagnosed her with gastroparesis. Other Hx: Recent GI illness, recent UTI and completed antibiotic, IDDM type I, DKAs, syncope pt thinks related to hypoglycemia, back pain-bulging disc, L sided sciatica, ovarian cyst. History of Any Multi-Drug Resistant Organisms: MRSA Date of last positivie culture/infection: 03/2014 MDRO Source:: GROIN AREA Past Surgical History: Cholecystectomy Past Anesthesia/Blood Transfusion Reactions: No Reported Reaction Past Psychological History: Anxiety, Depression Smoking Status: Light tobacco smoker Past Alcohol Use History: None Reported Past Drug Use History: Marijuana - Past Family History Mother History Unknown: Yes Family Medical History: No Reported History Additional Family Medical History / Comment(s): "heart disease" Father Family Medical History: Diabetes Mellitus Additional Family Medical History / Comment(s): Diabetes type II.; Heart disease General Exam Limitations: no limitations General appearance: alert, in no apparent distress Head exam: Present: atraumatic, normocephalic, normal inspection Eye exam: Present: normal appearance, PERRL, EOMI. Absent: scleral icterus, conjunctival injection, periorbital swelling ENT exam: Present: normal exam, normal oropharynx, mucous membranes moist Neck exam: Present: normal inspection, full ROM. Absent: tenderness, meningismus, lymphadenopathy Respiratory exam: Present: normal lung sounds bilaterally. Absent: respiratory distress, wheezes, rales, rhonchi, stridor Cardiovascular Exam: Present: normal rhythm, tachycardia, normal heart sounds. Absent: systolic murmur, diastolic murmur, rubs, gallop, clicks GI/Abdominal exam: Present: soft, normal bowel sounds. Absent: distended, tenderness, guarding, rebound, rigid Back exam: Absent: CVA tenderness (R), CVA tenderness (L) Skin exam: Present: warm, dry, intact, normal color. Absent: rash Course Vital Signs 07/04/18 07/04/18 16:40 18:22 Temperature 97.7 F 99.3 F Pulse Rate 142 H 140 H Respiratory 20 17 Rate Blood Pressure 105/76 142/87 O2 Sat by Pulse 99 100 Oximetry Medical Decision Making - Medical Decision Making 30-year-old female presented for nausea vomiting, weakness. Patient's found to be in DKA. Patient will be admitted to telemetry on DKA order set. - Lab Data Result diagrams: 07/04/18 17:10 07/04/18 17:10 Lab Results 07/04/18 07/04/18 07/04/18 Range/Units 17:10 17:10 17:10 WBC 19.9 H (3.8-10.6) k/uL RBC 5.21 (3.80-5.40) m/uL Hgb 14.3 (11.4-16.0) gm/dL Hct 46.6 H (34.0-46.0) % MCV 89.5 (80.0-100.0) fL MCH 27.4 (25.0-35.0) pg MCHC 30.6 L (31.0-37.0) g/dL RDW 13.6 (11.5-15.5) % Plt Count 630 H (150-450) k/uL Neutrophils % 88 % Lymphocytes % 10 % Monocytes % 2 % Eosinophils % 0 % Basophils % 0 % Neutrophils # 17.5 H (1.3-7.7) k/uL Lymphocytes # 1.9 (1.0-4.8) k/uL Monocytes # 0.3 (0-1.0) k/uL Eosinophils # 0.1 (0-0.7) k/uL Basophils # 0.1 (0-0.2) k/uL Hypochromasia Moderate VBG pH (7.31-7.41) VBG pCO2 (37-51) mmHg VBG HCO3 (24-28) mmol/L Sodium 138 (137-145) mmol/L Potassium (3.5-5.1) mmol/L Chloride 98 (98-107) mmol/L Carbon Dioxide 9 L* (22-30) mmol/L Anion Gap 31 mmol/L BUN 11 (7-17) mg/dL Creatinine 0.50 L (0.52-1.04) mg/dL Est GFR (CKD-EPI)AfAm >90 (>60 ml/min/1.73 sqM) Est GFR (CKD-EPI)NonAf >90 (>60 ml/min/1.73 sqM) Glucose 381 H (74-99) mg/dL Plasma Lactic Acid Ben 2.4 H* (0.7-2.0) mmol/L Calcium 10.2 (8.4-10.2) mg/dL Total Bilirubin 0.6 (0.2-1.3) mg/dL AST 40 H (14-36) U/L ALT 44 (9-52) U/L Alkaline Phosphatase 253 H (38-126) U/L Total Protein 9.1 H (6.3-8.2) g/dL Albumin 5.4 H (3.5-5.0) g/dL Lipase 14 L (23-300) U/L Urine Color Urine Appearance (Clear) Urine pH (5.0-8.0) Ur Specific Sutter (1.001-1.035) Urine Protein (Negative) Urine Glucose (UA) (Negative) Urine Ketones (Negative) Urine Blood (Negative) Urine Nitrite (Negative) Urine Bilirubin (Negative) Urine Urobilinogen (<2.0) mg/dL Ur Leukocyte Esterase (Negative) Urine RBC (0-5) /hpf Urine WBC (0-5) /hpf Ur Squamous Epith Cells (0-4) /hpf Urine Mucus (None) /hpf Urine HCG, Qual (Not Detectd) Acetone, Qual Positive (Negative) 07/04/18 07/04/18 07/04/18 Range/Units 17:10 18:03 18:03 WBC (3.8-10.6) k/uL RBC (3.80-5.40) m/uL Hgb (11.4-16.0) gm/dL Hct (34.0-46.0) % MCV (80.0-100.0) fL MCH (25.0-35.0) pg MCHC (31.0-37.0) g/dL RDW (11.5-15.5) % Plt Count (150-450) k/uL Neutrophils % % Lymphocytes % % Monocytes % % Eosinophils % % Basophils % % Neutrophils # (1.3-7.7) k/uL Lymphocytes # (1.0-4.8) k/uL Monocytes # (0-1.0) k/uL Eosinophils # (0-0.7) k/uL Basophils # (0-0.2) k/uL Hypochromasia VBG pH 7.13 L* (7.31-7.41) VBG pCO2 32 L (37-51) mmHg VBG HCO3 10 L (24-28) mmol/L Sodium (137-145) mmol/L Potassium (3.5-5.1) mmol/L Chloride (98-107) mmol/L Carbon Dioxide (22-30) mmol/L Anion Gap mmol/L BUN (7-17) mg/dL Creatinine (0.52-1.04) mg/dL Est GFR (CKD-EPI)AfAm (>60 ml/min/1.73 sqM) Est GFR (CKD-EPI)NonAf (>60 ml/min/1.73 sqM) Glucose (74-99) mg/dL Plasma Lactic Acid Ben (0.7-2.0) mmol/L Calcium (8.4-10.2) mg/dL Total Bilirubin (0.2-1.3) mg/dL AST (14-36) U/L ALT (9-52) U/L Alkaline Phosphatase (38-126) U/L Total Protein (6.3-8.2) g/dL Albumin (3.5-5.0) g/dL Lipase (23-300) U/L Urine Color Light Yellow Urine Appearance Clear (Clear) Urine pH 5.5 (5.0-8.0) Ur Specific Sutter 1.019 (1.001-1.035) Urine Protein Trace H (Negative) Urine Glucose (UA) 4+ H (Negative) Urine Ketones 4+ H (Negative) Urine Blood Negative (Negative) Urine Nitrite Negative (Negative) Urine Bilirubin Negative (Negative) Urine Urobilinogen <2.0 (<2.0) mg/dL Ur Leukocyte Esterase Small H (Negative) Urine RBC 1 (0-5) /hpf Urine WBC 20 H (0-5) /hpf Ur Squamous Epith Cells 5 H (0-4) /hpf Urine Mucus Rare H (None) /hpf Urine HCG, Qual Not Detected (Not Detectd) Acetone, Qual (Negative) Critical Care Time Critical Care Time: Yes Total Critical Care Time: 35 Critical Care Time: total of 35 mins of critical care time seen initially evaluated the patient, reviewed vitals, reviewed past medical history medications. Patient had lab work, EKG, urinalysis ordered. Patient was given 2 L bolus of IV fluids, antiemetics ordered. Patient is found to be in DKA, venous blood gas reveals pH 7.13, CO2 is 9 patient was started on insulin drip at 0.1 mg per hour, no bolus was given. Patient will have repeat laboratory, continue hydration, repeat Accu-Cheks. Patient's case discussed with tx physician. Disposition Clinical Impression: DKA (diabetic ketoacidoses), Nausea and vomiting, Leukocytosis, UTI (urinary tract infection) Disposition: ADMITTED IP TO THIS HOSP Condition: Fair Referrals: Ana Sebastian [facility] [REFERRING] - 1-2 days
[2018-07-04] MEDS ORDERED: diphenhydrAMINE 50 MG/ML 1 ML VIAL IVP STA (17:21)
[2018-07-04 17:55] LABS: Basophils # (A) 0.1 k/uL (0-0.2); Basophils % (A) 0 %; Eosinophils # (A) 0.1 k/uL (0-0.7); Eosinophils % (A) 0 %; HCT 46.6 % (34.0-46.0); HGB 14.3 gm/dL (11.4-16.0); Hypochromasia Moderate; Lymphocytes # (A) 1.9 k/uL (1.0-4.8); Lymphocytes % (A) 10 %; MCH 27.4 pg (25.0-35.0); MCHC 30.6 g/dL (31.0-37.0); MCV 89.5 fL (80.0-100.0); Mean Platelet Volume 6.8; Monocytes # (A) 0.3 k/uL (0-1.0); Monocytes % (A) 2 %; Neutrophils # (A) 17.5 k/uL (1.3-7.7); Neutrophils % (A) 88 %; Platelet Count 630 k/uL (150-450); RBC 5.21 m/uL (3.80-5.40); RDW 13.6 % (11.5-15.5); WBC 19.9 k/uL (3.8-10.6)
[2018-07-04] MEDS: METOCLOPRAMIDE 5 MG/ML 2 ML VIAL IVP STA ×2 (17:55→18:29)
[2018-07-04 17:59] LABS: VBG PH 7.13 (7.31-7.41)
[2018-07-04] MEDS ORDERED: KETOROLAC 30 MG/ML 1 ML VIAL IVP STA (18:01)
[2018-07-04 18:07] LABS: ALT 44 U/L (9-52); AST 40 U/L (14-36); Albumin 5.4 g/dL (3.5-5.0); Alkaline Phosphatase 253 U/L (38-126); Anion Gap 31 mmol/L; Blood Urea Nitrogen 11 mg/dL (7-17); Calcium 10.2 mg/dL (8.4-10.2); Chloride 98 mmol/L (98-107); Glucose 381 mg/dL (74-99); Lipase 14 U/L (23-300); Sodium 138 mmol/L (137-145); Total Bilirubin 0.6 mg/dL (0.2-1.3); Total Protein 9.1 g/dL (6.3-8.2)
[2018-07-04 18:10] LABS: Carbon Dioxide 9 mmol/L (22-30)
[2018-07-04 18:16] LABS: Appearance,Urine Clear (Clear); Bilirubin,Urine Negative (Negative); Blood,Urine Negative (Negative); Color,Urine Light Yellow; Glucose,Urine (UA) 4+ (Negative); Leukocyte Esterase,Urine Small (Negative); Mucus,Urine Rare /hpf; Nitrite,Urine Negative (Negative); PH, Urine 5.5 (5.0-8.0); Protein,Urine Trace (Negative); RBC,Urine 1 /hpf (0-5); Specific Gravity,Urine 1.019 (1.001-1.035); Squamous Epithelial Cell,Urine 5 /hpf (0-4); Urobilinogen,Urine <2.0 mg/dL (<2.0)
[2018-07-04 18:17] LABS: Ketones,Urine 4+ (Negative)
[2018-07-04] MEDS ORDERED: METOCLOPRAMIDE 5 MG/ML 2 ML VIAL IVP STA (18:25)
[2018-07-04] MEDS: SODIUM CHLORIDE 0.9% 1,000 ML IV SCH ×2 (18:32→23:25)
[2018-07-04] MEDS ORDERED: cefTRIAXone IN SWFI 1,000 MG/10 ML SYRINGE IVP STA (18:34)
[2018-07-04 19:06] LABS: Glucose,Whole Blood 279 mg/dL (75-99)
[2018-07-04] MEDS: INSULIN REGULAR 100 UNIT in SODIUM CHLORIDE 0.9% 100 ML IV SCH (19:12)
[2018-07-04] MEDS: D5-0.45% NACL WITH KCL 20MEQ/L 1,000 ML IV SCH (19:31)
[2018-07-04 20:12] LABS: Glucose,Whole Blood 247 mg/dL (75-99)
[2018-07-04 21:01] LABS: Anion Gap 24 mmol/L; Blood Urea Nitrogen 9 mg/dL (7-17); Chloride 108 mmol/L (98-107); Glucose 274 mg/dL (74-99); Phosphorus 3.6 mg/dL (2.5-4.5); Potassium 4.7 mmol/L (3.5-5.1); Sodium 139 mmol/L (137-145)
[2018-07-04 21:02] LABS: Glucose,Whole Blood 216 mg/dL (75-99)
[2018-07-04 21:14] LABS: Carbon Dioxide 7 mmol/L (22-30)
[2018-07-04 22:13] LABS: Glucose,Whole Blood 179 mg/dL (75-99)
[2018-07-04] MEDS: HYDROmorphone 0.5 MG/0.5 ML SYRINGE IVP PRN (22:15)
[2018-07-04 23:02] LABS: Glucose,Whole Blood 155 mg/dL (75-99)
[2018-07-05] LABS: Glucose,Whole Blood 161 mg/dL (75-99)
[2018-07-05] MEDS ORDERED: ONDANSETRON 4 MG/2 ML VIAL IVP SCH
[2018-07-05] MEDS: ONDANSETRON 4 MG/2 ML VIAL IVP PRN ×4 (00:01→18:08)
[2018-07-05 00:40] LABS: Blood Urea Nitrogen 9 mg/dL (7-17); Chloride 109 mmol/L (98-107); Glucose 163 mg/dL (74-99); Phosphorus 2.7 mg/dL (2.5-4.5); Sodium 140 mmol/L (137-145)
[2018-07-05 00:45] LABS: Anion Gap 21 mmol/L; Carbon Dioxide 10 mmol/L (22-30)
[2018-07-05 01:00] LABS: Glucose,Whole Blood 140 mg/dL (75-99)
[2018-07-05 01:01] LABS: Potassium 4.8 mmol/L (3.5-5.1)
[2018-07-05] MEDS: HYDROmorphone 0.5 MG/0.5 ML SYRINGE IVP PRN ×6 (01:45→19:05)
[2018-07-05 02:02] LABS: Glucose,Whole Blood 140 mg/dL (75-99)
[2018-07-05 03:06] LABS: Glucose,Whole Blood 146 mg/dL (75-99)
[2018-07-05 04:02] LABS: Glucose,Whole Blood 189 mg/dL (75-99)
[2018-07-05 04:59] LABS: Glucose,Whole Blood 181 mg/dL (75-99)
[2018-07-05] MEDS: D5-0.45% NACL WITH KCL 20MEQ/L 1,000 ML IV SCH ×4 (05:10→21:15)
[2018-07-05] MEDS: SODIUM CHLORIDE 0.9% 1,000 ML IV SCH (05:43)
[2018-07-05 06:01] LABS: Glucose,Whole Blood 166 mg/dL (75-99)
[2018-07-05 07:00] LABS: Glucose,Whole Blood 141 mg/dL (75-99)
[2018-07-05 08:07] LABS: Glucose,Whole Blood 125 mg/dL (75-99)
[2018-07-05 08:58] LABS: Glucose,Whole Blood 130 mg/dL (75-99)
[2018-07-05 10:20] LABS: Glucose,Whole Blood 163 mg/dL (75-99)
[2018-07-05 11:19] LABS: Glucose,Whole Blood 193 mg/dL (75-99)
[2018-07-05 11:22] LABS: Anion Gap 17 mmol/L; Blood Urea Nitrogen 5 mg/dL (7-17); Calcium 9.4 mg/dL (8.4-10.2); Carbon Dioxide 17 mmol/L (22-30); Chloride 105 mmol/L (98-107); Glucose 196 mg/dL (74-99); Potassium 3.9 mmol/L (3.5-5.1); Sodium 139 mmol/L (137-145)
[2018-07-05 11:59] LABS: Glucose,Whole Blood 224 mg/dL (75-99)
[2018-07-05 13:11] LABS: Glucose,Whole Blood 285 mg/dL (75-99)
[2018-07-05 14:08] LABS: Glucose,Whole Blood 288 mg/dL (75-99)
--- NOTE | 2018-07-05 14:55 | P.HPIM ---
History of Present Illness H&P Date: 07/05/18 Chief Complaint: nausea/vomiting/abdominal pain 22-year-old female presents emergency Department with chief complaint of nausea vomiting abdominal discomfort. Patient states she has multiple medical issues. Patient states she has a known brittle diabetic on insulin injections. Patient states she does not have an insulin pump. Patient states she's had no abdominal pain, nausea vomiting just generalized fatigue. Patient also states that she aches all over. Patient was questioned about her heart rate states that she is always tachycardic states that she cannot medications in the past but this caused her to have hypotension so she was removed. Patient states her heart rate has been up to 150 to 160s patient denies any palpitations or chest pain. She denies any fevers or chills no diarrhea that she noted. workup in ED was significant for blood sugar of 630 with CO2 of 19; white blood count was elevated at 19.9plan elevated lactic acid level of 2.4; UA is positive for glucose and ketones along with small amount of leukocyte esterase and WBCs; patient was given a fluid bolus of 2 L in ED and was started on insulin drip at 0.1 units per hour; patient is admitted to the hospital for further treatment of DKA and also for endocrinology evaluation Review of Systems Constitutional: Reports weakness, Denies chills, Denies fever Eyes: denies blurred vision, denies loss of vision Cardiovascular: Denies chest pain Respiratory: Denies cough with sputum Gastrointestinal: Reports abdominal pain, Reports nausea, Reports vomiting Genitourinary: Denies dysuria, Denies hematuria Musculoskeletal: Denies gait dysfunction, Denies myalgias Neurological: Denies confusion, Denies weakness Psychiatric: Denies anxiety, Denies confusion Endocrine: Denies cold intolerance, Denies heat intolerance Hematologic/Lymphatic: Denies lymphadenopathy Past Medical History Past Medical History: Asthma, Diabetes Mellitus, GERD/Reflux, Syncope Additional Past Medical History / Comment(s): Pt recently admitted to [facility] on 06/12/17 with DKA and elevated lactic acid, transaminitis, metabolic acidosis, glycogenic hepatology-she transferred to [facility] where she states they also diagnosed her with gastroparesis. Other Hx: Recent GI illness, recent UTI and completed antibiotic, IDDM type I, DKAs, syncope pt thinks related to hypoglycemia, back pain-bulging disc, L sided sciatica, ovarian cyst. History of Any Multi-Drug Resistant Organisms: MRSA Date of last positivie culture/infection: 03/2014 MDRO Source:: [facility] Past Surgical History: Cholecystectomy Past Anesthesia/Blood Transfusion Reactions: No Reported Reaction Past Psychological History: Anxiety, Depression Additional Psychological History / Comment(s): Pt resides with her mother. She is independent. Smoking Status: Light tobacco smoker Past Alcohol Use History: None Reported Additional Past Alcohol Use History / Comment(s): Pt states she smokes very lightly, a pack of cigarettes can last 2-4 weeks. Past Drug Use History: Marijuana Additional Drug Use History / Comment(s): occasional marijuana use for pain mgt - Past Family History Mother History Unknown: Yes Family Medical History: No Reported History Additional Family Medical History / Comment(s): "heart disease" Father Family Medical History: Diabetes Mellitus Additional Family Medical History / Comment(s): Diabetes type II.; Heart disease Medications and Allergies Home Medications Medication Instructions Recorded Confirmed Type Levothyroxine Sodium [Synthroid] 25 mcg PO DAILY 01/03/18 07/04/18 History Lidocaine 4% Cream [Lmx 4] 1 applic TOPICAL BID 01/03/18 07/04/18 History Acetaminophen-Codeine 300-30mg 1 tab PO Q8HR 02/06/18 07/04/18 History [Tylenol w/codeine #3] Albuterol Inhaler [Ventolin Hfa 1 - 2 puff INHALATION RT-BID 02/06/18 07/04/18 History Inhaler] Cholecalciferol (Vitamin D3) 2,000 unit PO DAILY 02/06/18 07/04/18 History [Vitamin D3] Cyclobenzaprine [Flexeril] 5 - 10 mg PO BID 02/06/18 07/04/18 History Gabapentin [Neurontin] 300 mg PO BID 02/06/18 07/04/18 History hydrOXYzine HCL [Atarax] 25 mg PO TID PRN 02/06/18 07/04/18 History Ondansetron Odt [Zofran ODT] 8 mg PO Q8HR PRN 05/08/18 07/04/18 History Insulin Lispro [Admelog Solostar] 5 unit SQ TID-W/MEALS #1 insuln.pen 05/14/18 07/04/18 Rx Omeprazole [PriLOSEC] 40 mg PO AC-BRKFST #30 capsule. 05/14/18 07/04/18 Rx Insulin Glargine [Lantus] 11 units SQ HS 06/04/18 07/04/18 History Metoprolol Tartrate [Lopressor] 25 mg PO BID 06/04/18 07/04/18 History Allergies Allergy/AdvReac Type Severity Reaction Status Date / Time No Known Allergies Allergy Verified 07/04/18 18:47 Physical Exam Vitals: Vital Signs Temp Pulse Pulse Resp BP BP Pulse Ox 07/05/18 08:00 96.4 F L 96 18 105/59 100 07/05/18 04:00 97 F L 110 H 16 156/90 97 07/05/18 01:49 16 159/104 07/04/18 20:00 129 H 18 147/100 07/04/18 19:52 97.8 F 125 H 16 171/96 97 07/04/18 19:50 128 H 19 147/100 100 07/04/18 19:40 128 H 11 L 145/91 100 07/04/18 19:30 125 H 11 L 150/91 98 07/04/18 19:20 126 H 25 H 150/91 100 07/04/18 19:10 129 H 28 H 139/85 100 07/04/18 19:00 124 H 18 137/100 100 07/04/18 18:50 128 H 27 H 137/100 100 07/04/18 18:40 134 H 20 141/95 96 07/04/18 18:34 100 07/04/18 18:22 99.3 F 140 H 17 142/87 100 07/04/18 16:40 97.7 F 142 H 20 105/76 99 Intake and Output 07/04/18 07/05/18 07/05/18 22:59 06:59 14:59 Intake Total 2715.151 625.253 4.874 Output Total 650 Balance 2715.151 -24.747 4.874 Intake: Amount of Fluid Infused ( 2000 ml) Intake, IV Titration 715.151 625.253 4.874 Amount D5-0.45% NaCl with KCl 300 600 20Meq/l 1,000 ml @ 150 mls/hr IV .Q6H40M [facility] Rx# :[id number] Insulin Regular 100 unit 15.151 25.253 4.874 In Sodium Chloride 0.9% 100 ml @ 0.1 UNITS/KG/HR 4.81 mls/hr IV .Q21H [facility] Rx#:[id number] Sodium Chloride 0.9% 1, 400 000 ml @ 200 mls/hr IV . Q5H [facility] Rx#:[id number] Output: Emesis 650 Other: # Voids 1 1 Weight 47.627 kg 48 kg Limitations: no limitations General appearance: alert, in no apparent distress Head exam: Present: atraumatic, normocephalic, normal inspection Eye exam: Present: normal appearance, PERRL, EOMI. Absent: scleral icterus, conjunctival injection, periorbital swelling ENT exam: Present: normal exam, normal oropharynx, mucous membranes moist Neck exam: Present: normal inspection, full ROM. Absent: tenderness, meningismus, lymphadenopathy Respiratory exam: Present: normal lung sounds bilaterally. Absent: respiratory distress, wheezes, rales, rhonchi, stridor Cardiovascular Exam: Present: normal rhythm, tachycardia, normal heart sounds. Absent: systolic murmur, diastolic murmur, rubs, gallop, clicks GI/Abdominal exam: Present: soft, normal bowel sounds. Absent: distended, tenderness, guarding, rebound, rigid Back exam: Absent: CVA tenderness (R), CVA tenderness (L) Skin exam: Present: warm, dry, intact, normal color. Absent: rash Results CBC & Chem 7: 07/04/18 17:10 07/05/18 10:28 Labs: Abnormal Lab Results - Last 24 Hours (Table) 07/04/18 07/04/18 07/04/18 Range/Units 17:10 17:10 17:10 WBC 19.9 H (3.8-10.6) k/uL Hct 46.6 H (34.0-46.0) % MCHC 30.6 L (31.0-37.0) g/dL Plt Count 630 H (150-450) k/uL Neutrophils # 17.5 H (1.3-7.7) k/uL VBG pH (7.31-7.41) VBG pCO2 (37-51) mmHg VBG HCO3 (24-28) mmol/L Chloride (98-107) mmol/L Carbon Dioxide 9 L* (22-30) mmol/L Creatinine 0.50 L (0.52-1.04) mg/dL Glucose 381 H (74-99) mg/dL POC Glucose (mg/dL) (75-99) mg/dL Plasma Lactic Acid Ben 2.4 H* (0.7-2.0) mmol/L AST 40 H (14-36) U/L Alkaline Phosphatase 253 H (38-126) U/L Total Protein 9.1 H (6.3-8.2) g/dL Albumin 5.4 H (3.5-5.0) g/dL Lipase 14 L (23-300) U/L Urine Protein (Negative) Urine Glucose (UA) (Negative) Urine Ketones (Negative) Ur Leukocyte Esterase (Negative) Urine WBC (0-5) /hpf Ur Squamous Epith Cells (0-4) /hpf Urine Mucus (None) /hpf 07/04/18 07/04/18 07/04/18 Range/Units 17:10 18:03 19:05 WBC (3.8-10.6) k/uL Hct (34.0-46.0) % MCHC (31.0-37.0) g/dL Plt Count (150-450) k/uL Neutrophils # (1.3-7.7) k/uL VBG pH 7.13 L* (7.31-7.41) VBG pCO2 32 L (37-51) mmHg VBG HCO3 10 L (24-28) mmol/L Chloride (98-107) mmol/L Carbon Dioxide (22-30) mmol/L Creatinine (0.52-1.04) mg/dL Glucose (74-99) mg/dL POC Glucose (mg/dL) 279 H (75-99) mg/dL Plasma Lactic Acid Ben (0.7-2.0) mmol/L AST (14-36) U/L Alkaline Phosphatase (38-126) U/L Total Protein (6.3-8.2) g/dL Albumin (3.5-5.0) g/dL Lipase (23-300) U/L Urine Protein Trace H (Negative) Urine Glucose (UA) 4+ H (Negative) Urine Ketones 4+ H (Negative) Ur Leukocyte Esterase Small H (Negative) Urine WBC 20 H (0-5) /hpf Ur Squamous Epith Cells 5 H (0-4) /hpf Urine Mucus Rare H (None) /hpf 07/04/18 07/04/18 07/04/18 Range/Units 20:06 20:12 21:00 WBC (3.8-10.6) k/uL Hct (34.0-46.0) % MCHC (31.0-37.0) g/dL Plt Count (150-450) k/uL Neutrophils # (1.3-7.7) k/uL VBG pH (7.31-7.41) VBG pCO2 (37-51) mmHg VBG HCO3 (24-28) mmol/L Chloride 108 H (98-107) mmol/L Carbon Dioxide 7 L* (22-30) mmol/L Creatinine 0.44 L (0.52-1.04) mg/dL Glucose 274 H (74-99) mg/dL POC Glucose (mg/dL) 247 H 216 H (75-99) mg/dL Plasma Lactic Acid Ben (0.7-2.0) mmol/L AST (14-36) U/L Alkaline Phosphatase (38-126) U/L Total Protein (6.3-8.2) g/dL Albumin (3.5-5.0) g/dL Lipase (23-300) U/L Urine Protein (Negative) Urine Glucose (UA) (Negative) Urine Ketones (Negative) Ur Leukocyte Esterase (Negative) Urine WBC (0-5) /hpf Ur Squamous Epith Cells (0-4) /hpf Urine Mucus (None) /hpf 07/04/18 07/04/18 07/04/18 Range/Units 22:11 22:59 23:57 WBC (3.8-10.6) k/uL Hct (34.0-46.0) % MCHC (31.0-37.0) g/dL Plt Count (150-450) k/uL Neutrophils # (1.3-7.7) k/uL VBG pH (7.31-7.41) VBG pCO2 (37-51) mmHg VBG HCO3 (24-28) mmol/L Chloride (98-107) mmol/L Carbon Dioxide (22-30) mmol/L Creatinine (0.52-1.04) mg/dL Glucose (74-99) mg/dL POC Glucose (mg/dL) 179 H 155 H 161 H (75-99) mg/dL Plasma Lactic Acid Ben (0.7-2.0) mmol/L AST (14-36) U/L Alkaline Phosphatase (38-126) U/L Total Protein (6.3-8.2) g/dL Albumin (3.5-5.0) g/dL Lipase (23-300) U/L Urine Protein (Negative) Urine Glucose (UA) (Negative) Urine Ketones (Negative) Ur Leukocyte Esterase (Negative) Urine WBC (0-5) /hpf Ur Squamous Epith Cells (0-4) /hpf Urine Mucus (None) /hpf 07/05/18 07/05/18 07/05/18 Range/Units 00:11 00:58 02:00 WBC (3.8-10.6) k/uL Hct (34.0-46.0) % MCHC (31.0-37.0) g/dL Plt Count (150-450) k/uL Neutrophils # (1.3-7.7) k/uL VBG pH (7.31-7.41) VBG pCO2 (37-51) mmHg VBG HCO3 (24-28) mmol/L Chloride 109 H (98-107) mmol/L Carbon Dioxide 10 L (22-30) mmol/L Creatinine 0.37 L (0.52-1.04) mg/dL Glucose 163 H (74-99) mg/dL POC Glucose (mg/dL) 140 H 140 H (75-99) mg/dL Plasma Lactic Acid Ben (0.7-2.0) mmol/L AST (14-36) U/L Alkaline Phosphatase (38-126) U/L Total Protein (6.3-8.2) g/dL Albumin (3.5-5.0) g/dL Lipase (23-300) U/L Urine Protein (Negative) Urine Glucose (UA) (Negative) Urine Ketones (Negative) Ur Leukocyte Esterase (Negative) Urine WBC (0-5) /hpf Ur Squamous Epith Cells (0-4) /hpf Urine Mucus (None) /hpf 07/05/18 07/05/18 07/05/18 Range/Units 03:02 03:59 04:56 WBC (3.8-10.6) k/uL Hct (34.0-46.0) % MCHC (31.0-37.0) g/dL Plt Count (150-450) k/uL Neutrophils # (1.3-7.7) k/uL VBG pH (7.31-7.41) VBG pCO2 (37-51) mmHg VBG HCO3 (24-28) mmol/L Chloride (98-107) mmol/L Carbon Dioxide (22-30) mmol/L Creatinine (0.52-1.04) mg/dL Glucose (74-99) mg/dL POC Glucose (mg/dL) 146 H 189 H 181 H (75-99) mg/dL Plasma Lactic Acid Ben (0.7-2.0) mmol/L AST (14-36) U/L Alkaline Phosphatase (38-126) U/L Total Protein (6.3-8.2) g/dL Albumin (3.5-5.0) g/dL Lipase (23-300) U/L Urine Protein (Negative) Urine Glucose (UA) (Negative) Urine Ketones (Negative) Ur Leukocyte Esterase (Negative) Urine WBC (0-5) /hpf Ur Squamous Epith Cells (0-4) /hpf Urine Mucus (None) /hpf 07/05/18 07/05/18 07/05/18 Range/Units 05:58 06:58 08:05 WBC (3.8-10.6) k/uL Hct (34.0-46.0) % MCHC (31.0-37.0) g/dL Plt Count (150-450) k/uL Neutrophils # (1.3-7.7) k/uL VBG pH (7.31-7.41) VBG pCO2 (37-51) mmHg VBG HCO3 (24-28) mmol/L Chloride (98-107) mmol/L Carbon Dioxide (22-30) mmol/L Creatinine (0.52-1.04) mg/dL Glucose (74-99) mg/dL POC Glucose (mg/dL) 166 H 141 H 125 H (75-99) mg/dL Plasma Lactic Acid Ben (0.7-2.0) mmol/L AST (14-36) U/L Alkaline Phosphatase (38-126) U/L Total Protein (6.3-8.2) g/dL Albumin (3.5-5.0) g/dL Lipase (23-300) U/L Urine Protein (Negative) Urine Glucose (UA) (Negative) Urine Ketones (Negative) Ur Leukocyte Esterase (Negative) Urine WBC (0-5) /hpf Ur Squamous Epith Cells (0-4) /hpf Urine Mucus (None) /hpf 07/05/18 07/05/18 Range/Units 08:56 10:13 WBC (3.8-10.6) k/uL Hct (34.0-46.0) % MCHC (31.0-37.0) g/dL Plt Count (150-450) k/uL Neutrophils # (1.3-7.7) k/uL VBG pH (7.31-7.41) VBG pCO2 (37-51) mmHg VBG HCO3 (24-28) mmol/L Chloride (98-107) mmol/L Carbon Dioxide (22-30) mmol/L Creatinine (0.52-1.04) mg/dL Glucose (74-99) mg/dL POC Glucose (mg/dL) 130 H 163 H (75-99) mg/dL Plasma Lactic Acid Ben (0.7-2.0) mmol/L AST (14-36) U/L Alkaline Phosphatase (38-126) U/L Total Protein (6.3-8.2) g/dL Albumin (3.5-5.0) g/dL Lipase (23-300) U/L Urine Protein (Negative) Urine Glucose (UA) (Negative) Urine Ketones (Negative) Ur Leukocyte Esterase (Negative) Urine WBC (0-5) /hpf Ur Squamous Epith Cells (0-4) /hpf Urine Mucus (None) /hpf Microbiology - Last 24 Hours (Table) 07/04/18 18:03 Urine Culture - Preliminary Urine,Voided Assessment and Plan Assessment: 1. DKA - patient is admitted to telemetry - We will continue with IV fluid hydration and insulin drip per DKA protocol - Monitor basic metabolic panel every 4 hours - Consult endocrinology for further recommendations 2. UTI/sepsis; Patient was given a dose of IV Rocephin in ED - We will continue with IV Rocephin 1 g IV daily and adjust antibiotic therapy once urine cultures available 3. Hypothyroidism; Continue with home dose of levothyroxine 25 MCG daily 4. Hypertension; Reorder metoprolol 25 mg twice a day 5. Diabetes mellitus type 1; We will hold off on home regimen of subcu Lantus while patient is on insulin infusion - Monitor Accu-Cheks per DKA protocol 6. DVT prophylaxis; SCDs CODE STATUS; full code Time with Patient: Greater than 30
[2018-07-05] MEDS: INSULIN REGULAR 100 UNIT in SODIUM CHLORIDE 0.9% 100 ML IV SCH (15:00)
[2018-07-05 15:06] LABS: Glucose,Whole Blood 176 mg/dL (75-99)
[2018-07-05 15:16] LABS: Anion Gap 11 mmol/L; Blood Urea Nitrogen 3 mg/dL (7-17); Calcium 9.3 mg/dL (8.4-10.2); Carbon Dioxide 17 mmol/L (22-30); Chloride 108 mmol/L (98-107); Glucose 218 mg/dL (74-99); Sodium 136 mmol/L (137-145)
[2018-07-05 16:12] LABS: Glucose,Whole Blood 138 mg/dL (75-99)
[2018-07-05] MEDS: PANTOPRAZOLE 40 MG/10 ML VIAL IVP SCH (16:14)
[2018-07-05] MEDS: TRIMETHOBENZAMIDE 300 MG CAP PO PRN ×2 (17:10→23:25)
[2018-07-05 17:32] LABS: Glucose,Whole Blood 157 mg/dL (75-99)
[2018-07-05 18:13] LABS: Glucose,Whole Blood 159 mg/dL (75-99)
[2018-07-05 19:00] LABS: Anion Gap 13 mmol/L; Blood Urea Nitrogen 3 mg/dL (7-17); Calcium 9.7 mg/dL (8.4-10.2); Carbon Dioxide 19 mmol/L (22-30); Chloride 106 mmol/L (98-107); Glucose 163 mg/dL (74-99); Potassium 4.4 mmol/L (3.5-5.1); Sodium 138 mmol/L (137-145)
[2018-07-05 19:05] LABS: Glucose,Whole Blood 158 mg/dL (75-99)
[2018-07-05 20:09] LABS: Glucose,Whole Blood 186 mg/dL (75-99)
[2018-07-05] MEDS: METOPROLOL TARTRATE 25 MG TAB PO SCH (20:09)
[2018-07-05] MEDS: GABAPENTIN 300 MG CAP PO SCH (20:09)
[2018-07-05 21:07] LABS: Glucose,Whole Blood 161 mg/dL (75-99)
[2018-07-05 22:00] LABS: Glucose,Whole Blood 154 mg/dL (75-99)
[2018-07-05 22:07] LABS: Anion Gap 8 mmol/L; Blood Urea Nitrogen 2 mg/dL (7-17); Calcium 9.5 mg/dL (8.4-10.2); Carbon Dioxide 22 mmol/L (22-30); Chloride 108 mmol/L (98-107); Glucose 165 mg/dL (74-99); Sodium 138 mmol/L (137-145)
[2018-07-05 22:58] LABS: Glucose,Whole Blood 148 mg/dL (75-99)
[2018-07-05] MEDS ORDERED: INSULIN DETEMIR (LEVEMIR) 100 UNIT/ML SYR SQ ONE (23:30)
[2018-07-06 02:15] LABS: Glucose,Whole Blood 156 mg/dL (75-99)
[2018-07-06] MEDS: HYDROmorphone 0.5 MG/0.5 ML SYRINGE IVP PRN ×3 (04:29→14:26)
[2018-07-06] MEDS: ONDANSETRON 4 MG/2 ML VIAL IVP PRN ×3 (04:29→16:38)
[2018-07-06] MEDS: D5-0.45% NACL WITH KCL 20MEQ/L 1,000 ML IV SCH (05:10)
[2018-07-06 06:07] LABS: Glucose,Whole Blood 133 mg/dL (75-99)
[2018-07-06] MEDS: LEVOTHYROXINE 25 MCG TAB PO SCH (06:09)
[2018-07-06 06:37] LABS: Basophils % (A) 0 %; Eosinophils # (A) 0.3 k/uL (0-0.7); Eosinophils % (A) 3 %; HCT 39.2 % (34.0-46.0); HGB 12.6 gm/dL (11.4-16.0); Lymphocytes # (A) 3.3 k/uL (1.0-4.8); Lymphocytes % (A) 34 %; MCH 27.2 pg (25.0-35.0); MCHC 32.1 g/dL (31.0-37.0); MCV 84.8 fL (80.0-100.0); Mean Platelet Volume 6.7; Monocytes # (A) 0.4 k/uL (0-1.0); Monocytes % (A) 4 %; Neutrophils # (A) 5.7 k/uL (1.3-7.7); Neutrophils % (A) 58 %; Platelet Count 500 k/uL (150-450); RBC 4.62 m/uL (3.80-5.40); RDW 13.9 % (11.5-15.5); WBC 9.9 k/uL (3.8-10.6)
[2018-07-06 06:48] LABS: ALT 38 U/L (9-52); AST 41 U/L (14-36); Alkaline Phosphatase 184 U/L (38-126); Anion Gap 10 mmol/L; Blood Urea Nitrogen 2 mg/dL (7-17); Calcium 9.9 mg/dL (8.4-10.2); Carbon Dioxide 21 mmol/L (22-30); Chloride 108 mmol/L (98-107); Glucose 143 mg/dL (74-99); Potassium 3.9 mmol/L (3.5-5.1); Sodium 139 mmol/L (137-145); Total Bilirubin 0.4 mg/dL (0.2-1.3); Total Protein 6.6 g/dL (6.3-8.2)
[2018-07-06] MEDS: GABAPENTIN 300 MG CAP PO SCH ×2 (08:25→21:02)
[2018-07-06] MEDS: PANTOPRAZOLE 40 MG/10 ML VIAL IVP SCH (08:25)
[2018-07-06] MEDS: INSULIN ASPART (NovoLOG) 100 UNIT/ML VIAL SQ SCH ×6 (08:25→21:26)
[2018-07-06] MEDS: METOPROLOL TARTRATE 25 MG TAB PO SCH ×2 (08:26→21:03)
[2018-07-06] MEDS ORDERED: INSULIN DETEMIR (LEVEMIR) 100 UNIT/ML SYR SQ SCH (09:00)
[2018-07-06] MEDS: TRIMETHOBENZAMIDE 300 MG CAP PO PRN (09:11)
--- NOTE | 2018-07-06 10:00 | P.PN ---
Subjective This is first time taking care of the patient. This is a pleasant 23 years old female who has past medical history of insulin- dependent diabetes mellitus who was on Lantus 11 units with lispro 5 units with meals. Patient was adherent to her treatment. However she presents with signs symptoms of DKA, diabetic ketoacidosis. She was transferred to the general medical floor and insulin drip was stopped yesterday. Was started on her low Lantus/Levemir insulin however she still complaining from abdominal pain and nausea vomiting. Patient has been told that she has history of gastroparesis but states she was not been tested before. Patient currently is on Tigan, Zofran, and Dilaudid. I offered to change her IV Dilaudid pills and she wanted to keep it IV today but okay to lower her day frequency from every 3 hours to every 6 hours. Resume IV fluids. Urine culture is positive for group B strep agalactiae. But no sensitivity which is final. However patient denies urinary symptoms. No fever or leukocytosis. We will check ceftriaxone to Keflex for 3 more days. Objective - Vital Signs Vital signs: Vital Signs Temp 97.2 F L 07/06/18 08:00 Pulse 107 H 07/06/18 08:00 Resp 18 07/06/18 08:00 BP 159/105 07/06/18 08:00 Pulse Ox 99 07/06/18 08:00 Intake & Output 07/05/18 07/06/18 07/06/18 18:59 06:59 18:59 Intake Total 614.191 205.520 800 Balance 614.191 205.520 800 Weight 48 kg Intake: IV 600 200 D5-0.45% NaCl with KCl 600 200 20Meq/l 1,000 ml @ 50 mls /hr IV .Q20H [facility] Rx#: [id number] Intake, IV Titration 14.191 5.520 Amount Insulin Regular 100 unit 14.191 5.520 In Sodium Chloride 0.9% 100 ml @ 0.1 UNITS/KG/HR 4.81 mls/hr IV .Q21H [facility] Rx#:[id number] Oral 800 Other: Voiding Method Toilet # Voids 2 2 - Exam GENERAL: The patient is alert and oriented x3, not in any acute distress. Well developed, well nourished. HEENT: Pupils are round and equally reacting to light. EOMI. No scleral icterus. No conjunctival pallor. Normocephalic, atraumatic. No pharyngeal erythema. No thyromegaly. CARDIOVASCULAR: S1 and S2 present. No murmurs, rubs, or gallops. PULMONARY: Chest is clear to auscultation, no wheezing or crackles. -ABDOMEN: Soft, generalized mild abdominal tenderness, no rebound tenderness or guarding nondistended, normoactive bowel sounds. No palpable organomegaly. MUSCULOSKELETAL: No joint swelling or deformity. EXTREMITIES: No cyanosis, clubbing, or pedal edema. NEUROLOGICAL: Gross neurological examination did not reveal any focal deficits. SKIN: No rashes. - Labs CBC & Chem 7: 07/06/18 06:13 07/06/18 06:13 Labs: Abnormal Lab Results - Last 24 Hours (Table) 07/05/18 07/05/18 07/05/18 Range/Units 10:13 10:28 11:07 Plt Count (150-450) k/uL Sodium (137-145) mmol/L Chloride (98-107) mmol/L Carbon Dioxide 17 L (22-30) mmol/L BUN 5 L (7-17) mg/dL Creatinine 0.36 L (0.52-1.04) mg/dL Glucose 196 H (74-99) mg/dL POC Glucose (mg/dL) 163 H 193 H (75-99) mg/dL AST (14-36) U/L Alkaline Phosphatase (38-126) U/L 07/05/18 07/05/18 07/05/18 Range/Units 11:58 12:59 13:57 Plt Count (150-450) k/uL Sodium (137-145) mmol/L Chloride (98-107) mmol/L Carbon Dioxide (22-30) mmol/L BUN (7-17) mg/dL Creatinine (0.52-1.04) mg/dL Glucose (74-99) mg/dL POC Glucose (mg/dL) 224 H 285 H 288 H (75-99) mg/dL AST (14-36) U/L Alkaline Phosphatase (38-126) U/L 07/05/18 07/05/18 07/05/18 Range/Units 14:47 14:53 16:10 Plt Count (150-450) k/uL Sodium 136 L (137-145) mmol/L Chloride 108 H (98-107) mmol/L Carbon Dioxide 17 L (22-30) mmol/L BUN 3 L (7-17) mg/dL Creatinine 0.28 L (0.52-1.04) mg/dL Glucose 218 H (74-99) mg/dL POC Glucose (mg/dL) 176 H 138 H (75-99) mg/dL AST (14-36) U/L Alkaline Phosphatase (38-126) U/L 07/05/18 07/05/18 07/05/18 Range/Units 17:06 18:10 18:16 Plt Count (150-450) k/uL Sodium (137-145) mmol/L Chloride (98-107) mmol/L Carbon Dioxide 19 L (22-30) mmol/L BUN 3 L (7-17) mg/dL Creatinine 0.29 L (0.52-1.04) mg/dL Glucose 163 H (74-99) mg/dL POC Glucose (mg/dL) 157 H 159 H (75-99) mg/dL AST (14-36) U/L Alkaline Phosphatase (38-126) U/L 07/05/18 07/05/18 07/05/18 Range/Units 19:04 20:08 21:06 Plt Count (150-450) k/uL Sodium (137-145) mmol/L Chloride (98-107) mmol/L Carbon Dioxide (22-30) mmol/L BUN (7-17) mg/dL Creatinine (0.52-1.04) mg/dL Glucose (74-99) mg/dL POC Glucose (mg/dL) 158 H 186 H 161 H (75-99) mg/dL AST (14-36) U/L Alkaline Phosphatase (38-126) U/L 07/05/18 07/05/18 07/05/18 Range/Units 21:33 21:59 22:56 Plt Count (150-450) k/uL Sodium (137-145) mmol/L Chloride 108 H (98-107) mmol/L Carbon Dioxide (22-30) mmol/L BUN 2 L (7-17) mg/dL Creatinine 0.24 L (0.52-1.04) mg/dL Glucose 165 H (74-99) mg/dL POC Glucose (mg/dL) 154 H 148 H (75-99) mg/dL AST (14-36) U/L Alkaline Phosphatase (38-126) U/L 07/06/18 07/06/18 07/06/18 Range/Units 02:04 06:05 06:13 Plt Count 500 H (150-450) k/uL Sodium (137-145) mmol/L Chloride (98-107) mmol/L Carbon Dioxide (22-30) mmol/L BUN (7-17) mg/dL Creatinine (0.52-1.04) mg/dL Glucose (74-99) mg/dL POC Glucose (mg/dL) 156 H 133 H (75-99) mg/dL AST (14-36) U/L Alkaline Phosphatase (38-126) U/L 07/06/18 Range/Units 06:13 Plt Count (150-450) k/uL Sodium (137-145) mmol/L Chloride 108 H (98-107) mmol/L Carbon Dioxide 21 L (22-30) mmol/L BUN 2 L (7-17) mg/dL Creatinine 0.32 L (0.52-1.04) mg/dL Glucose 143 H (74-99) mg/dL POC Glucose (mg/dL) (75-99) mg/dL AST 41 H (14-36) U/L Alkaline Phosphatase 184 H (38-126) U/L Microbiology - Last 24 Hours (Table) 07/04/18 19:00 Blood Culture - Preliminary Blood No Growth after 24 hours 07/04/18 18:03 Urine Culture - Final Urine,Voided Strep agalactiae - (group b) Assessment and Plan Assessment: Diabetic ketoacidosis, resolved. History of diabetes mellitus, insulin-dependent Possible UTI with positive urine culture Possible history of gastroparesis History of hypothyroidism Essential hypertension Plan: This is a pleasant 23 years old female who presents with DKA and UTI. Continue with antibiotic. Follow-up urine culture. Continue with long acting and short acting insulin and follow-up insulin sliding scale.Labs and medication were reviewed.. Continue same treatment. Continue with symptomatic treatment. Res ume home medication. Monitor lytes and vitals. DVT and GI prophylaxis. Further recommendations of the clinical course of the patient DVT prophylaxis: Subcutaneous heparin GI Prophylaxis: ppi
[2018-07-06] MEDS: SODIUM CHLORIDE 0.9% 1,000 ML IV SCH ×2 (10:20→23:16)
[2018-07-06 11:32] LABS: Hemoglobin A1C 10.1 % (4.0-6.0)
[2018-07-06] MEDS: traMADol 50 MG TAB PO PRN ×2 (12:09→21:02)
[2018-07-06 12:19] LABS: Glucose,Whole Blood 166 mg/dL (75-99)
--- NOTE | 2018-07-06 15:39 | P.CN ---
Psychiatric Consult - . Consult date: 07/06/18 Consult:: 07/06/18 15:33 Eating disorder Assessment and Plan Assessment: This is a pleasant 23 years old female who has past medical history of insulin- dependent diabetes mellitus who was on Lantus 11 units with lispro 5 units with meals. Patient was adherent to her treatment. However she presents with signs symptoms of DKA, diabetic ketoacidosis. She was transferred to the general medical floor and insulin drip was stopped yesterday. Was started on her low Lantus/Levemir insulin however she still complaining from abdominal pain and nausea vomiting. Patient has been told that she has history of gastroparesis but states she was not been tested before. Patient currently is on Tigan, Zofran, and Dilaudid.Patient states she has a known brittle diabetic on insulin injections. Patient states she does not have an insulin pump. Patient states she's had no abdominal pain, nausea vomiting just generalized fatigue. Patient also states that she aches all over. Patient was questioned about her heart rate states that she is always tachycardic states that she cannot medications in the past but this caused her to have hypotension so she was removed. Patient states her heart rate has been up to 150 to 160s patient denies any palpitations or chest pain. She denies any fevers or chills no diarrhea that she noted. Past Medical History Past Medical History: Asthma, Diabetes Mellitus, GERD/Reflux, Syncope Additional Past Medical History / Comment(s): Pt recently admitted to [facility] on 06/12/17 with DKA and elevated lactic acid, transaminitis, metabolic acidosis, glycogenic hepatology-she transferred to [facility] where she states they also diagnosed her with gastroparesis. Other Hx: Recent GI illness, recent UTI and completed antibiotic, IDDM type I, DKAs, syncope pt thinks related to hypoglycemia, back pain-bulging disc, L sided sciatica, ovarian cyst. History of Any Multi-Drug Resistant Organisms: MRSA Date of last positivie culture/infection: 03/2014 MDRO Source:: [facility] Past Surgical History: Cholecystectomy Past Anesthesia/Blood Transfusion Reactions: No Reported Reaction Past Psychological History: Anxiety, Depression Additional Psychological History / Comment(s): Pt resides with her mother. She is independent. Smoking Status: Light tobacco smoker Past Alcohol Use History: None Reported Additional Past Alcohol Use History / Comment(s): Pt states she smokes very lightly, a pack of cigarettes can last 2-4 weeks. Past Drug Use History: Marijuana Additional Drug Use History / Comment(s): occasional marijuana use for pain mgt - Past Family History Mother History Unknown: Yes Family Medical History: No Reported History Additional Family Medical History / Comment(s): "heart disease" Father Family Medical History: Diabetes Mellitus Additional Family Medical History / Comment(s): Diabetes type II.; Heart disease Medications and Allergies Home Medications Medication Instructions Recorded Confirmed Type Levothyroxine Sodium [Synthroid] 25 mcg PO DAILY 01/03/18 07/04/18 History Lidocaine 4% Cream [Lmx 4] 1 applic TOPICAL BID 01/03/18 07/04/18 History Acetaminophen-Codeine 300-30mg 1 tab PO Q8HR 02/06/18 07/04/18 History [Tylenol w/codeine #3] Albuterol Inhaler [Ventolin Hfa 1 - 2 puff INHALATION RT-BID 02/06/18 07/04/18 History Inhaler] Cholecalciferol (Vitamin D3) 2,000 unit PO DAILY 02/06/18 07/04/18 History [Vitamin D3] Cyclobenzaprine [Flexeril] 5 - 10 mg PO BID 02/06/18 07/04/18 History Gabapentin [Neurontin] 300 mg PO BID 02/06/18 07/04/18 History hydrOXYzine HCL [Atarax] 25 mg PO TID PRN 02/06/18 07/04/18 History Ondansetron Odt [Zofran ODT] 8 mg PO Q8HR PRN 05/08/18 07/04/18 History Insulin Lispro [Admelog Solostar] 5 unit SQ TID-W/MEALS #1 insuln.pen 05/14/18 07/04/18 Rx Omeprazole [PriLOSEC] 40 mg PO AC-BRKFST #30 capsule.dr 05/14/18 07/04/18 Rx Insulin Glargine [Lantus] 11 units SQ HS 06/04/18 07/04/18 History Metoprolol Tartrate [Lopressor] 25 mg PO BID 06/04/18 07/04/18 History Allergies Allergy/AdvReac Type Severity Reaction Status Date / Time No Known Allergies Allergy Verified 07/04/18 18:47 Mental status examination: This is a 23-year-old female who was asked to be seen because he thought she had an eating disorder when in actuality she has a little diabetic condition which is sometimes confused with eating disorder. However his side that the mental status examination and did reveal she has anxiety with underlying depression. This is a 23-year-old cachectic-looking, female who looks younger than her stated age. Speech and language are spontaneous. Attitude and behavior is cooperative with intermittent periods of emesis. Mood is depressed and anxious. Orientation is to person place time and situation. Affect is blunted constricted due to pain in her stomach. Thought content within normal. Risk factors she denies suicidal or homicidal ideation. Perception within normal denies hallucinations auditory visual or tactile. Thought processes goal oriented. Recent memory and remote memory within normal. 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 Judgment is good and insight is good. Psychiatric impression: Anxiety with underlying depression more likely due to the chronic illness of type 1 diabetes and difficulty with stabilizing insulin and eating due to gastroparesis. Psychiatric recommendation: After discussion with the patient decided to try Ativan for relief anxiety to the pain that she has and also to put her on desipramine which is been noted to help gastric disorders stabilized GI tract. She needs follow-up care and outpatient basis as well as therapy to learn what chronic illness has done her. Thank you for the consult Shekhar Odell D.O. PhD (1) Depression with anxiety Current Visit: Yes Status: Acute Code(s): F41.8 - OTHER SPECIFIED ANXIETY DISORDERS SNOMED Code(s): 43283227 Time with Patient: Greater than 30
[2018-07-06] MEDS: LORazepam 2 MG/ML INJ IV PRN (16:39)
[2018-07-06 16:47] LABS: Glucose,Whole Blood 114 mg/dL (75-99)
--- NOTE | 2018-07-06 19:04 | P.CONS ---
History of Present Illness - Reason for Consult Consult date: 07/06/18 Nausea and vomiting Requesting physician: Annabelle Antony - Chief Complaint Nausea and vomiting - History of Present Illness The patient is a 22-year-old female with a medical history significant for type 1 diabetes mellitus, prior episodes of DKA, diabetic gastroparesis, prior history of cholecystectomy, glycogen hepatopathy and depression who presented to the hospital with complaints of nausea, vomiting and abdominal pain. The patient reports multiple episodes of nonbloody, nonbilious emesis prior to presentation. She reports associated abdominal pain. The patient was recently seen in April for similar complaints. At that time the patient had reported intermittent use of NSAID medications and was taken for EGD which was significant only for mild gastritis with no peptic ulcer disease or other pathology noted at the time. The patient has a known history of gastroparesis for which she uses medications at home, however presented to the hospital due to uncontrolled symptoms. 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 Currently she is seen lying in bed with admission labs significant for WBC 9.9, hemoglobin 12.6, platelet count 500,000, total bilirubin 0.4, alkaline phosphatase 184, AST 41, and ALT 38. He is currently receiving as needed Tigan and Zofran therapy. She has been seen by the psychiatry service who have started her on a few medications. Review of Systems REVIEW OF SYSTEMS: CONSTITUTIONAL: Denies any fevers, chills, weight change or fatigue. CARDIOVASCULAR: Denies any chest pain, palpitations high or low blood pressures RESPIRATORY: Denies any shortness of breath, hemoptysis or cough. GENITOURINARY: No dysuria or hematuria. MUSCULOSKELETAL: No weakness reported. SKIN: Denies any new rashes or lesions, jaundice or pallor. PSYCHIATRIC: Anxiety. NEUROLOGY: Denies headache, denies any new focal deficits. EARS/NOSE/THROAT: No recent hearing change, congestion, nasal discharge or sore throat. EYES: No pain in eyes, discharge or change in vision. GASTROINTESTINAL: As per HPI. Past Medical History Past Medical History: Asthma, Diabetes Mellitus, GERD/Reflux, Syncope Additional Past Medical History / Comment(s): Pt recently admitted to [facility] on 06/12/17 with DKA and elevated lactic acid, transaminitis, metabolic acidosis, glycogenic hepatology-she transferred to [facility] where she states they also diagnosed her with gastroparesis. Other Hx: Recent GI illness, recent UTI and completed antibiotic, IDDM type I, DKAs, syncope pt thinks related to hypog lycemia, back pain-bulging disc, L sided sciatica, ovarian cyst. History of Any Multi-Drug Resistant Organisms: MRSA Year Discovered:: 03/2014 MDRO Source:: [facility] Past Surgical History: Cholecystectomy Past Anesthesia/Blood Transfusion Reactions: No Reported Reaction Past Psychological History: Anxiety, Depression Additional Psychological History / Comment(s): Pt resides with her mother. She is independent. Smoking Status: Light tobacco smoker Past Alcohol Use History: None Reported Additional Past Alcohol Use History / Comment(s): Pt states she smokes very lightly, a pack of cigarettes can last 2-4 weeks. Past Drug Use History: Marijuana Additional Drug Use History / Comment(s): occasional marijuana use for pain mgt - Past Family History Mother History Unknown: Yes Family Medical History: No Reported History Additional Family Medical History / Comment(s): "heart disease" Father Family Medical History: Diabetes Mellitus Additional Family Medical History / Comment(s): Diabetes type II.; Heart disease Medications and Allergies Home Medications Medication Instructions Recorded Confirmed Type Levothyroxine Sodium [Synthroid] 25 mcg PO DAILY 01/03/18 07/04/18 History Lidocaine 4% Cream [Lmx 4] 1 applic TOPICAL BID 01/03/18 07/04/18 History Acetaminophen-Codeine 300-30mg 1 tab PO Q8HR 02/06/18 07/04/18 History [Tylenol w/codeine #3] Albuterol Inhaler [Ventolin Hfa 1 - 2 puff INHALATION RT-BID 02/06/18 07/04/18 History Inhaler] Cholecalciferol (Vitamin D3) 2,000 unit PO DAILY 02/06/18 07/04/18 History [Vitamin D3] Cyclobenzaprine [Flexeril] 5 - 10 mg PO BID 02/06/18 07/04/18 History Gabapentin [Neurontin] 300 mg PO BID 02/06/18 07/04/18 History hydrOXYzine HCL [Atarax] 25 mg PO TID PRN 02/06/18 07/04/18 History Ondansetron Odt [Zofran ODT] 8 mg PO Q8HR PRN 05/08/18 07/04/18 History Insulin Lispro [Admelog Solostar] 5 unit SQ TID-W/MEALS #1 insuln.pen 05/14/18 07/04/18 Rx Omeprazole [PriLOSEC] 40 mg PO AC-BRKFST #30 capsule.dr 05/14/18 07/04/18 Rx Insulin Glargine [Lantus] 11 units SQ HS 06/04/18 07/04/18 History Metoprolol Tartrate [Lopressor] 25 mg PO BID 06/04/18 07/04/18 History Allergies Allergy/AdvReac Type Severity Reaction Status Date / Time No Known Allergies Allergy Verified 07/04/18 18:47 Physical Exam Vitals: Vital Signs Temp Pulse Resp BP Pulse Ox 07/06/18 08:00 97.2 F L 107 H 18 159/105 99 07/06/18 04:29 99.0 F 100 18 156/98 100 07/06/18 04:00 100 18 07/06/18 00:00 97.7 F 89 18 94/56 98 07/05/18 20:00 98.1 F 89 16 110/68 100 07/05/18 15:49 98.2 F 87 18 109/69 100 07/05/18 11:17 105 H 18 120/70 100 Intake and Output 07/05/18 07/06/18 07/06/18 22:59 06:59 14:59 Intake Total 10.638 200 800 Balance 10.638 200 800 Intake: IV 200 D5-0.45% NaCl with KCl 200 20Meq/l 1,000 ml @ 50 mls /hr IV .Q20H JAMAL Rx#: [id number] Intake, IV Titration 10.638 Amount Insulin Regular 100 unit 10.638 In Sodium Chloride 0.9% 100 ml @ 0.1 UNITS/KG/HR 4.81 mls/hr IV .Q21H JAMAL Rx#:[id number] Oral 800 Other: Voiding Method Toilet Toilet # Voids 2 On physical examination, patient appears comfortable in no apparent distress. HEAD: Normocephalic, atraumatic. EYES: No scleral icterus. No conjunctival injection. MOUTH: No lesions, tongue midline. NECK: Trachea midline, no gross abnormalities. CHEST: Clear to auscultation with no wheezing or rhonchi appreciated. HEART: Regular rate and rhythm. ABDOMEN: Soft, obese. Bowel sounds are positive. No organomegaly. No guarding or rigidity. EXTREMITIES: No pedal edema. SKIN: No rashes, no jaundice. NEUROLOGIC: Alert and oriented x3. No focal deficits. Results CBC & Chem 7: 07/06/18 06:13 07/06/18 06:13 Labs: Abnormal Lab Results - Last 24 Hours (Table) 07/05/18 07/05/18 07/05/18 Range/Units 10:13 10:28 11:07 Plt Count (150-450) k/uL Sodium (137-145) mmol/L Chloride (98-107) mmol/L Carbon Dioxide 17 L (22-30) mmol/L BUN 5 L (7-17) mg/dL Creatinine 0.36 L (0.52-1.04) mg/dL Glucose 196 H (74-99) mg/dL POC Glucose (mg/dL) 163 H 193 H (75-99) mg/dL AST (14-36) U/L Alkaline Phosphatase (38-126) U/L 07/05/18 07/05/18 07/05/18 Range/Units 11:58 12:59 13:57 Plt Count (150-450) k/uL Sodium (137-145) mmol/L Chloride (98-107) mmol/L Carbon Dioxide (22-30) mmol/L BUN (7-17) mg/dL Creatinine (0.52-1.04) mg/dL Glucose (74-99) mg/dL POC Glucose (mg/dL) 224 H 285 H 288 H (75-99) mg/dL AST (14-36) U/L Alkaline Phosphatase (38-126) U/L 07/05/18 07/05/18 07/05/18 Range/Units 14:47 14:53 16:10 Plt Count (150-450) k/uL Sodium 136 L (137-145) mmol/L Chloride 108 H (98-107) mmol/L Carbon Dioxide 17 L (22-30) mmol/L BUN 3 L (7-17) mg/dL Creatinine 0.28 L (0.52-1.04) mg/dL Glucose 218 H (74-99) mg/dL POC Glucose (mg/dL) 176 H 138 H (75-99) mg/dL AST (14-36) U/L Alkaline Phosphatase (38-126) U/L 07/05/18 07/05/18 07/05/18 Range/Units 17:06 18:10 18:16 Plt Count (150-450) k/uL Sodium (137-145) mmol/L Chloride (98-107) mmol/L Carbon Dioxide 19 L (22-30) mmol/L BUN 3 L (7-17) mg/dL Creatinine 0.29 L (0.52-1.04) mg/dL Glucose 163 H (74-99) mg/dL POC Glucose (mg/dL) 157 H 159 H (75-99) mg/dL AST (14-36) U/L Alkaline Phosphatase (38-126) U/L 07/05/18 07/05/18 07/05/18 Range/Units 19:04 20:08 21:06 Plt Count (150-450) k/uL Sodium (137-145) mmol/L Chloride (98-107) mmol/L Carbon Dioxide (22-30) mmol/L BUN (7-17) mg/dL Creatinine (0.52-1.04) mg/dL Glucose (74-99) mg/dL POC Glucose (mg/dL) 158 H 186 H 161 H (75-99) mg/dL AST (14-36) U/L Alkaline Phosphatase (38-126) U/L 07/05/18 07/05/18 07/05/18 Range/Units 21:33 21:59 22:56 Plt Count (150-450) k/uL Sodium (137-145) mmol/L Chloride 108 H (98-107) mmol/L Carbon Dioxide (22-30) mmol/L BUN 2 L (7-17) mg/dL Creatinine 0.24 L (0.52-1.04) mg/dL Glucose 165 H (74-99) mg/dL POC Glucose (mg/dL) 154 H 148 H (75-99) mg/dL AST (14-36) U/L Alkaline Phosphatase (38-126) U/L 07/06/18 07/06/18 07/06/18 Range/Units 02:04 06:05 06:13 Plt Count 500 H (150-450) k/uL Sodium (137-145) mmol/L Chloride (98-107) mmol/L Carbon Dioxide (22-30) mmol/L BUN (7-17) mg/dL Creatinine (0.52-1.04) mg/dL Glucose (74-99) mg/dL POC Glucose (mg/dL) 156 H 133 H (75-99) mg/dL AST (14-36) U/L Alkaline Phosphatase (38-126) U/L 07/06/18 Range/Units 06:13 Plt Count (150-450) k/uL Sodium (137-145) mmol/L Chloride 108 H (98-107) mmol/L Carbon Dioxide 21 L (22-30) mmol/L BUN 2 L (7-17) mg/dL Creatinine 0.32 L (0.52-1.04) mg/dL Glucose 143 H (74-99) mg/dL POC Glucose (mg/dL) (75-99) mg/dL AST 41 H (14-36) U/L Alkaline Phosphatase 184 H (38-126) U/L Microbiology - Last 24 Hours (Table) 07/04/18 19:00 Blood Culture - Preliminary Blood No Growth after 24 hours 07/04/18 18:03 Urine Culture - Final Urine,Voided Strep agalactiae - (group b) Assessment and Plan (1) Nausea and vomiting Narrative/Plan: 23-year-old female with known history of diabetic gastroparesis presenting with intractable nausea and vomiting. Patient was previously seen with similar complaints in April at which time EGD was significant only for mild gastritis. Currently the patient is receiving as needed antinausea medications. Current Visit: Yes Status: Acute Code(s): R11.2 - NAUSEA WITH VOMITING, UNSPECIFIED SNOMED Code(s): 46626160 Plan: Supportive care Okay for low-fat, low fiber diet as tolerated Will change Zofran from as needed to [id number] Continue Tigan as needed Continue to monitor symptoms Continue tight glycemic control Patient may benefit from referral to tertiary center for evaluation of gastric pacemaker placement Thank you for allowing us to participate in the care of the patient we will continue to follow
[2018-07-06] MEDS: DESIPRAMINE 25 MG TAB PO SCH (21:02)
[2018-07-06] MEDS: HEPARIN SODIUM,PORCINE 5,000 UNIT/ML 1 ML VIAL SQ SCH (21:03)
[2018-07-06] MEDS: CEPHALEXIN 500 MG CAP PO SCH (21:07)
[2018-07-06 21:10] LABS: Glucose,Whole Blood 77 mg/dL (75-99)
[2018-07-06] MEDS: ONDANSETRON 4 MG/2 ML VIAL IVP SCH (23:15)
[2018-07-07] MEDS: HYDROmorphone 0.5 MG/0.5 ML SYRINGE IVP PRN ×2 (00:05→10:51)
[2018-07-07 03:53] LABS: Glucose,Whole Blood 70 mg/dL (75-99)
[2018-07-07] MEDS: traMADol 50 MG TAB PO PRN (03:59)
[2018-07-07 04:22] LABS: Glucose,Whole Blood 112 mg/dL (75-99)
[2018-07-07] MEDS: LORazepam 2 MG/ML INJ IV PRN ×2 (05:10→21:39)
[2018-07-07] MEDS: INSULIN ASPART (NovoLOG) 100 UNIT/ML VIAL SQ SCH ×7 (06:46→21:31)
[2018-07-07] MEDS: ONDANSETRON 4 MG/2 ML VIAL IVP SCH ×4 (06:46→23:38)
[2018-07-07] MEDS: PANTOPRAZOLE 40 MG TABLET PO SCH (06:46)
[2018-07-07] MEDS: LEVOTHYROXINE 25 MCG TAB PO SCH (06:46)
[2018-07-07 07:10] LABS: Anion Gap 10 mmol/L; Blood Urea Nitrogen 7 mg/dL (7-17); Calcium 8.9 mg/dL (8.4-10.2); Carbon Dioxide 24 mmol/L (22-30); Chloride 105 mmol/L (98-107); Glucose 178 mg/dL (74-99); Potassium 3.4 mmol/L (3.5-5.1); Sodium 139 mmol/L (137-145)
[2018-07-07] MEDS: GABAPENTIN 300 MG CAP PO SCH ×2 (08:51→21:39)
[2018-07-07] MEDS: CEPHALEXIN 500 MG CAP PO SCH ×2 (08:51→21:39)
[2018-07-07] MEDS: HEPARIN SODIUM,PORCINE 5,000 UNIT/ML 1 ML VIAL SQ SCH ×2 (10:14→21:40)
[2018-07-07] MEDS: METOPROLOL TARTRATE 25 MG TAB PO SCH ×3 (10:14→21:40)
[2018-07-07] MEDS ORDERED: PROCHLORPERAZINE SUPPOSITORY 25 MG SUPP RECTAL PRN (11:11)
[2018-07-07] MEDS ORDERED: SCOPOLAMINE 1.5MG/72HR PATCH TRANSDERM SCH (11:15)
--- NOTE | 2018-07-07 11:26 | P.PN ---
Subjective Progress Note Date: 07/07/18 Principal diagnosis: Nausea vomiting Persistent nausea vomiting. No bleeding. Objective - Vital Signs Vital signs: Vital Signs Temp 99.2 F 07/07/18 08:00 Pulse 103 H 07/07/18 08:00 Resp 16 07/07/18 08:00 BP 157/97 07/07/18 08:00 Pulse Ox 100 07/07/18 08:00 Intake & Output 07/06/18 07/07/18 07/07/18 18:59 06:59 18:59 Intake Total 800 360 Balance 800 360 Weight 46.5 kg Intake: Oral 800 360 Other: Voiding Method Toilet # Voids 2 1 - Exam On physical examination, patient appears tearful and frustrated. HEAD: Normocephalic, atraumatic. EYES: No scleral icterus. No conjunctival injection. MOUTH: No lesions, tongue midline. NECK: Trachea midline, no gross abnormalities. CHEST: Clear to auscultation with no wheezing or rhonchi appreciated. HEART: Regular rate and rhythm. ABDOMEN: Soft, obese. Bowel sounds are positive. No organomegaly. No guarding or rigidity. EXTREMITIES: No pedal edema. SKIN: No rashes, no jaundice. NEUROLOGIC: Alert and oriented x3. No focal deficits. - Labs CBC & Chem 7: 07/06/18 06:13 07/07/18 06:16 Labs: Abnormal Lab Results - Last 24 Hours (Table) 07/06/18 07/06/18 07/06/18 Range/Units 06:13 11:44 16:41 Potassium (3.5-5.1) mmol/L Creatinine (0.52-1.04) mg/dL Glucose (74-99) mg/dL POC Glucose (mg/dL) 166 H 114 H (75-99) mg/dL Hemoglobin A1c 10.1 H (4.0-6.0) % 07/07/18 07/07/18 07/07/18 Range/Units 03:52 04:21 06:16 Potassium 3.4 L (3.5-5.1) mmol/L Creatinine 0.32 L (0.52-1.04) mg/dL Glucose 178 H (74-99) mg/dL POC Glucose (mg/dL) 70 L 112 H (75-99) mg/dL Hemoglobin A1c (4.0-6.0) % Microbiology - Last 24 Hours (Table) 07/04/18 19:00 Blood Culture - Preliminary Blood No Growth after 48 hours Assessment and Plan (1) Nausea and vomiting Narrative/Plan: 23-year-old female with known history of diabetic gastroparesis presenting with intractable nausea and vomiting. Patient was previously seen with similar complaints in April at which time EGD was significant only for mild gastritis. Currently the patient is receiving as needed antinausea medications. Current Visit: Yes Status: Acute Code(s): R11.2 - NAUSEA WITH VOMITING, UNSPECIFIED SNOMED Code(s): 22367876 Plan: upportive care Okay for low-fat, low fiber diet as tolerated Zofran [id number] Continue Tigan as needed. Will add scopolamine patch. Continue to monitor symptoms Continue tight glycemic control Patient may benefit from referral to tertiary center for evaluation of gastric pacemaker placement Thank you for allowing us to participate in the care of the patient we will continue to follow Assessment and plan a care discussed with Dr. Luong
[2018-07-07 12:01] LABS: Glucose,Whole Blood 346 mg/dL (75-99)
[2018-07-07] MEDS: INSULIN DETEMIR (LEVEMIR) 100 UNIT/ML SYR SQ SCH (12:15)
[2018-07-07] MEDS: SODIUM CHLORIDE 0.9% 1,000 ML IV SCH ×2 (12:21→21:39)
[2018-07-07] MEDS ORDERED: POTASSIUM CHLORIDE ER 20 MEQ TAB.ER PO STA (12:41)
--- NOTE | 2018-07-07 12:46 | P.PN ---
Subjective This is first time taking care of the patient. This is a pleasant 23 years old female who has past medical history of insulin- dependent diabetes mellitus who was on Lantus 11 units with lispro 5 units with meals. Patient was adherent to her treatment. However she presents with signs symptoms of DKA, diabetic ketoacidosis. She was transferred to the general medical floor and insulin drip was stopped yesterday. Was started on her low Lantus/Levemir insulin however she still complaining from abdominal pain and nausea vomiting. Patient has been told that she has history of gastroparesis but states she was not been tested before. Patient currently is on Tigan, Zofran, and Dilaudid. I offered to change her IV Dilaudid pills and she wanted to keep it IV today but okay to lower her day frequency from every 3 hours to every 6 hours. Resume IV fluids. Urine culture is positive for group B strep agalactiae. But no sensitivity which is final. However patient denies urinary symptoms. No fever or leukocytosis. We will check ceftriaxone to Keflex for 3 more days. 07/07/2018 Patient still complaining from nausea vomiting and epigastric pain and tenderness. Hemodynamically stable. Electrolytes replaced. GI team input is appreciated, most likely patient has intractable nausea vomiting secondary to gastroparesis. This recommended to patient continue with Zofran as a scheduled dose, with Tigan when necessary. Scopolamine patches admitted today by GI team. Patient will benefit from tertiary center evaluation. for possible gastric pacemaker. we ordered physical therapy evaluation. Change Dilaudid to [place] 5. Continue with insulin and monitor sugar. Case was discussed with staff and GI team. Psych evaluation is appreciated and patient was started on desipramine Review of systems CONSTITUTIONAL: No fever, no malaise, no fatigue. HEENT: No recent visual problems or hearing problems. Denied any sore throat. CARDIOVASCULAR: No orthopnea, PND, no palpitations, no syncope. PULMONARY: No shortness of breath, no cough, no hemoptysis. GASTROINTESTINAL: No diarrhea, no nausea, no vomiting, no abdominal pain. Norm oactive bowel sounds. NEUROLOGICAL: No headaches, no weakness, no numbness. HEMATOLOGICAL: Denies any bleeding or petechiae. GENITOURINARY: Denies any burning micturition, frequency, or urgency. MUSCULOSKELETAL/RHEUMATOLOGICAL: Denies any joint pain, swelling, or any muscle pain. ENDOCRINE: Denies any polyuria or polydipsia. Medication: Keflex, desipramine, gabapentin, heparin, [place], insulin, levothyroxine, Ativan, metoprolol, Zofran, Protonix, potassium chloride, prochlorperazine, scopolamine, sodium chloride at 75 L/h, tramadol, trimethobenzamide Objective - Vital Signs Vital signs: Vital Signs Temp 99.2 F 07/07/18 08:00 Pulse 103 H 07/07/18 08:00 Resp 16 07/07/18 08:00 BP 157/97 07/07/18 08:00 Pulse Ox 100 07/07/18 08:00 Intake & Output 07/06/18 07/07/18 07/07/18 18:59 06:59 18:59 Intake Total 800 360 Balance 800 360 Weight 46.5 kg Intake: Oral 800 360 Other: Voiding Method Toilet # Voids 2 1 - Exam GENERAL: The patient is alert and oriented x3, not in any acute distress. Well developed, well nourished. HEENT: Pupils are round and equally reacting to light. EOMI. No scleral icterus. No conjunctival pallor. Normocephalic, atraumatic. No pharyngeal erythema. No thyromegaly. CARDIOVASCULAR: S1 and S2 present. No murmurs, rubs, or gallops. PULMONARY: Chest is clear to auscultation, no wheezing or crackles. -ABDOMEN: Soft, generalized mild abdominal tenderness, no rebound tenderness or guarding nondistended, normoactive bowel sounds. No palpable organomegaly. MUSCULOSKELETAL: No joint swelling or deformity. EXTREMITIES: No cyanosis, clubbing, or pedal edema. NEUROLOGICAL: Gross neurological examination did not reveal any focal deficits. SKIN: No rashes. - Labs CBC & Chem 7: 07/06/18 06:13 07/07/18 06:16 Labs: Abnormal Lab Results - Last 24 Hours (Table) 07/06/18 07/07/18 07/07/18 Range/Units 16:41 03:52 04:21 Potassium (3.5-5.1) mmol/L Creatinine (0.52-1.04) mg/dL Glucose (74-99) mg/dL POC Glucose (mg/dL) 114 H 70 L 112 H (75-99) mg/dL 07/07/18 07/07/18 Range/Units 06:16 11:59 Potassium 3.4 L (3.5-5.1) mmol/L Creatinine 0.32 L (0.52-1.04) mg/dL Glucose 178 H (74-99) mg/dL POC Glucose (mg/dL) 346 H (75-99) mg/dL Microbiology - Last 24 Hours (Table) 07/04/18 19:00 Blood Culture - Preliminary Blood No Growth after 48 hours Assessment and Plan Assessment: Diabetic ketoacidosis, resolved. Intractable nausea vomiting, mostly related to diabetic gastroparesis History of diabetes mellitus, insulin-dependent Possible UTI with positive urine culture Possible history of gastroparesis History of hypothyroidism Essential hypertension Plan: This is a pleasant 23 years old female who presents with DKA and UTI. Continue with antibiotic. Continue with antiemetics. Follow-up general medical condition. Follow-up urine culture. Continue with long acting and short acting insulin and follow-up insulin sliding scale.Labs and medication were reviewed.. Continue same treatment. Continue with symptomatic treatment. Resume home medication. Monitor lytes and vitals. DVT and GI prophylaxis. Further recom mendations of the clinical course of the patient DVT prophylaxis: Subcutaneous heparin GI Prophylaxis: ppi
[2018-07-07 16:59] LABS: Glucose,Whole Blood 146 mg/dL (75-99)
[2018-07-07] MEDS: HYDROcodone/APAP 5-325MG 1 EACH TAB PO PRN (17:26)
[2018-07-07 20:37] LABS: Glucose,Whole Blood 124 mg/dL (75-99)
[2018-07-07] MEDS: DESIPRAMINE 25 MG TAB PO SCH (21:40)
[2018-07-08 02:02] LABS: Glucose,Whole Blood 74 mg/dL (75-99)
[2018-07-08 06:22] LABS: Glucose,Whole Blood 148 mg/dL (75-99)
[2018-07-08] MEDS: PANTOPRAZOLE 40 MG TABLET PO SCH (06:38)
[2018-07-08] MEDS: ONDANSETRON 4 MG/2 ML VIAL IVP SCH ×4 (06:38→23:26)
[2018-07-08] MEDS: LEVOTHYROXINE 25 MCG TAB PO SCH (06:38)
[2018-07-08] MEDS: INSULIN ASPART (NovoLOG) 100 UNIT/ML VIAL SQ SCH ×7 (06:39→22:03)
[2018-07-08 06:57] LABS: HCT 36.4 % (34.0-46.0); HGB 12.3 gm/dL (11.4-16.0); MCH 27.8 pg (25.0-35.0); MCHC 33.8 g/dL (31.0-37.0); MCV 82.4 fL (80.0-100.0); Mean Platelet Volume 6.6; Platelet Count 439 k/uL (150-450); RBC 4.42 m/uL (3.80-5.40); RDW 13.7 % (11.5-15.5); WBC 6.8 k/uL (3.8-10.6)
[2018-07-08 06:58] LABS: Anion Gap 8 mmol/L; Blood Urea Nitrogen 5 mg/dL (7-17); Carbon Dioxide 27 mmol/L (22-30); Chloride 104 mmol/L (98-107); Glucose 155 mg/dL (74-99); Magnesium 1.3 mg/dL (1.6-2.3); Sodium 139 mmol/L (137-145)
--- NOTE | 2018-07-08 08:13 | XR ---
EXAMINATION TYPE: XR chest 1V DATE OF EXAM: 07/08/2018 COMPARISON: 01/06/2018 HISTORY: Nausea and vomiting. Chest pain. TECHNIQUE: Single frontal view of the chest is obtained. FINDINGS: There is no focal air space opacity, pleural effusion, or pneumothorax seen. The cardiac silhouette size is within normal limits. The osseous structures are intact. IMPRESSION: No acute process.
--- NOTE | 2018-07-08 09:07 | P.PN ---
Subjective This is first time taking care of the patient. This is a pleasant 23 years old female who has past medical history of insulin- dependent diabetes mellitus who was on Lantus 11 units with lispro 5 units with meals. Patient was adherent to her treatment. However she presents with signs symptoms of DKA, diabetic ketoacidosis. She was transferred to the general medical floor and insulin drip was stopped yesterday. Was started on her low Lantus/Levemir insulin however she still complaining from abdominal pain and nausea vomiting. Patient has been told that she has history of gastroparesis but states she was not been tested before. Patient currently is on Tigan, Zofran, and Dilaudid. I offered to change her IV Dilaudid pills and she wanted to keep it IV today but okay to lower her day frequency from every 3 hours to every 6 hours. Resume IV fluids. Urine culture is positive for group B strep agalactiae. But no sensitivity which is final. However patient denies urinary symptoms. No fever or leukocytosis. We will check ceftriaxone to Keflex for 3 more days. 07/07/2018 Patient still complaining from nausea vomiting and epigastric pain and tenderness. Hemodynamically stable. Electrolytes replaced. GI team input is appreciated, most likely patient has intractable nausea vomiting secondary to gastroparesis. This recommended to patient continue with Zofran as a scheduled dose, with Tigan when necessary. Scopolamine patches admitted today by GI team. Patient will benefit from tertiary center evaluation. for possible gastric pacemaker. we ordered physical therapy evaluation. Change Dilaudid to [place] 5. Continue with insulin and monitor sugar. Case was discussed with staff and GI team. Psych evaluation is appreciated and patient was started on desipramine 07/08/2018 Patient today and her mother at bedside who told me that patient has previous history of brain tumor. 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 She follows up with neurologist Dr. Rogers and vice president of business development as an outpatient. She has pretty fluctuating sugar as per mother that because sometimes up to 500. She got easily nauseated from sometimes sounds or even the smell, and thus contribute to her loss of weight as per mother. She has also history of autonomic dysfunction causing fluctuation of blood sugar and whenever she gets simple infection her sugar uncontrolled. This time patient presents with recurrent nausea vomiting and DKA with possible UTI. After controlling her sugar her and gap is closed. She was started on antibiotics for UTI. No more urinary symptoms. She had intractable nausea vomiting since early yesterday which was better controlled prior to discharge with antinausea medication including Zofran scheduled dose, scopolamine patch and Tigan when necessary. Currently patient tolerating diet well. Diet advanced. pt today was noticed to have Patient came with nausea vomiting, mostly related to her autonomic dysfunction from her diabetes and possible secondary to brain tumor. Patient also complaining of from bilateral retroauricular (behind the ear) lymphadenopathy. And mother would like her to be evaluated by vice president of business development Psychiatrist evaluated the patient because the staff for consent patient was induced and her on vomiting which were contributing to loss of weight, for concern is of bulimia nervosa psychiatrist consult is recommended by staff. However the sac axis thought that her symptoms related to her depression and started her on desipramine however patient stopped taking it because it gives her hallucinations which is stopped now as per patient and mother at bedside Review of systems CONSTITUTIONAL: No fever, no malaise, no fatigue. HEENT: No recent visual problems or hearing problems. Denied any sore throat. CARDIOVASCULAR: No orthopnea, PND, no palpitations, no syncope. PULMONARY: No shortness of breath, no cough, no hemoptysis. GASTROINTESTINAL: No diarrhea, no nausea, no vomiting, no abdominal pain. Normoactive bowel sounds. NEUROLOGICAL: No headaches, no weakness, no numbness. HEMATOLOGICAL: Denies any bleeding or petechiae. GENITOURINARY: Denies any burning micturition, frequency, or urgency. MUSCULOSKELETAL/RHEUMATOLOGICAL: Denies any joint pain, swelling, or any muscle pain. ENDOCRINE: Denies any polyuria or polydipsia. Medication: Keflex, gabapentin, heparin, [place], insulin, levothyroxine, Ativan, metoprolol, Zofran, Protonix, potassium chloride, prochlorperazine, scopolamine, sodium chloride at 75 L/h, tramadol, trimethobenzamide Objective - Vital Signs Vital signs: Vital Signs Temp 98.5 F 07/08/18 00:00 Pulse 115 H 07/08/18 08:00 Resp 16 07/08/18 08:00 BP 146/97 07/08/18 08:00 Pulse Ox 99 07/08/18 08:00 Intake & Output 07/07/18 07/08/18 07/08/18 18:59 06:59 18:59 Intake Total 360 240 Output Total 40 Balance 320 240 Weight 46.4 kg Intake: Oral 360 240 Output: Emesis 40 Other: # Voids 1 - Exam GENERAL: The patient is alert and oriented x3, not in any acute distress. Well developed, well nourished. HEENT: Pupils are round and equally reacting to light. EOMI. No scleral icterus. No conjunctival pallor. Normocephalic, atraumatic. No pharyngeal erythema. No thyromegaly. CARDIOVASCULAR: S1 and S2 present. No murmurs, rubs, or gallops. PULMONARY: Chest is clear to auscultation, no wheezing or crackles. -ABDOMEN: Soft, generalized mild abdominal tenderness, no rebound tenderness or guarding nondistended, normoactive bowel sounds. No palpable organomegaly. MUSCULOSKELETAL: No joint swelling or deformity. EXTREMITIES: No cyanosis, clubbing, or pedal edema. NEUROLOGICAL: Gross neurological examination did not reveal any focal deficits. SKIN: No rashes. - Labs CBC & Chem 7: 07/08/18 06:20 07/08/18 06:20 Labs: Abnormal Lab Results - Last 24 Hours (Table) 07/07/18 07/07/18 07/07/18 Range/Units 11:59 16:56 20:35 BUN (7-17) mg/dL Creatinine (0.52-1.04) mg/dL Glucose (74-99) mg/dL POC Glucose (mg/dL) 346 H 146 H 124 H (75-99) mg/dL Magnesium (1.6-2.3) mg/dL 07/08/18 07/08/18 07/08/18 Range/Units 02:00 06:20 06:22 BUN 5 L (7-17) mg/dL Creatinine 0.39 L (0.52-1.04) mg/dL Glucose 155 H (74-99) mg/dL POC Glucose (mg/dL) 74 L 148 H (75-99) mg/dL Magnesium 1.3 L (1.6-2.3) mg/dL Microbiology - Last 24 Hours (Table) 07/04/18 19:00 Blood Culture - Preliminary Blood No Growth after 72 hours Assessment and Plan Assessment: Diabetic ketoacidosis, resolved. Intractable nausea vomiting, mostly related to diabetic gastroparesis History of brain tumor, with bilateral lymphadenopathy behind ears. Autonomic dysfunction Possible UTI with positive urine culture History of diabetes mellitus, insulin-dependent Possible history of gastroparesis History of hypothyroidism Essential hypertension Plan: This is a pleasant 23 years old female who presents with DKA and UTI. Continue with antibiotic. Continue with antiemetics. Follow-up general medical condition. Follow-up urine culture. Continue with long acting and short acting insulin and follow-up insulin sliding scale.Labs and medication were reviewed.. Continue same treatment. Continue with symptomatic treatment. Resume home medication. Monitor lytes and vitals. DVT and GI prophylaxis. Further recommendations of the clinical course of the patient DVT prophylaxis: Subcutaneous heparin GI Prophylaxis: ppi
[2018-07-08] MEDS: CEPHALEXIN 500 MG CAP PO SCH ×2 (09:22→21:58)
[2018-07-08] MEDS: GABAPENTIN 300 MG CAP PO SCH ×2 (09:23→21:56)
[2018-07-08] MEDS: METOPROLOL TARTRATE 25 MG TAB PO SCH ×2 (09:23→21:56)
[2018-07-08] MEDS: INSULIN DETEMIR (LEVEMIR) 100 UNIT/ML SYR SQ SCH (09:24)
[2018-07-08] MEDS: HEPARIN SODIUM,PORCINE 5,000 UNIT/ML 1 ML VIAL SQ SCH ×2 (09:24→22:02)
[2018-07-08] MEDS: MAGNESIUM SULFATE-D5W PMX 1 GM in DEXTROSE/WATER 1 100ML.BAG IVPB SCH ×2 (11:17→12:26)
[2018-07-08] MEDS: SODIUM CHLORIDE 0.9% 1,000 ML IV SCH (11:21)
[2018-07-08 11:47] LABS: Glucose,Whole Blood 410 mg/dL (75-99)
[2018-07-08 13:25] LABS: Appearance,Urine Clear (Clear); Bacteria,Urine Rare /hpf; Bilirubin,Urine Negative (Negative); Blood,Urine Negative (Negative); Color,Urine Light Yellow; Glucose,Urine (UA) 4+ (Negative); Leukocyte Esterase,Urine Trace (Negative); Nitrite,Urine Negative (Negative); PH, Urine 6.5 (5.0-8.0); Protein,Urine Negative (Negative); Specific Gravity,Urine 1.027 (1.001-1.035); Squamous Epithelial Cell,Urine <1 /hpf (0-4); Urobilinogen,Urine <2.0 mg/dL (<2.0); WBC,Urine 3 /hpf (0-5)
[2018-07-08 13:52] VITALS: BMI 17.0
[2018-07-08 14:18] LABS: Ketones,Urine 3+ (Negative)
[2018-07-08 17:06] LABS: Glucose,Whole Blood 238 mg/dL (75-99)
[2018-07-08] MEDS: HYDROcodone/APAP 5-325MG 1 EACH TAB PO PRN (19:02)
[2018-07-08 20:41] LABS: Glucose,Whole Blood 193 mg/dL (75-99)
[2018-07-08] MEDS: traMADol 50 MG TAB PO PRN (21:58)
[2018-07-09 02:50] LABS: Glucose,Whole Blood 232 mg/dL (75-99)
[2018-07-09] MEDS: SODIUM CHLORIDE 0.9% 1,000 ML IV SCH (05:48)
[2018-07-09 05:59] VITALS: RESP 16
[2018-07-09] MEDS: LEVOTHYROXINE 25 MCG TAB PO SCH (06:09)
[2018-07-09] MEDS: ONDANSETRON 4 MG/2 ML VIAL IVP SCH ×3 (06:09→17:40)
[2018-07-09] MEDS: HYDROcodone/APAP 5-325MG 1 EACH TAB PO PRN (06:11)
[2018-07-09 07:12] LABS: Glucose,Whole Blood 381 mg/dL (75-99)
[2018-07-09] MEDS: INSULIN ASPART (NovoLOG) 100 UNIT/ML VIAL SQ SCH ×6 (08:02→17:53)
[2018-07-09] MEDS: HEPARIN SODIUM,PORCINE 5,000 UNIT/ML 1 ML VIAL SQ SCH (08:03)
[2018-07-09] MEDS: PANTOPRAZOLE 40 MG TABLET PO SCH (08:07)
[2018-07-09] MEDS: CEPHALEXIN 500 MG CAP PO SCH (08:07)
[2018-07-09] MEDS: METOPROLOL TARTRATE 25 MG TAB PO SCH (08:07)
[2018-07-09] MEDS: GABAPENTIN 300 MG CAP PO SCH (08:07)
[2018-07-09] MEDS ORDERED: INSULIN DETEMIR (LEVEMIR) 100 UNIT/ML SYR SQ SCH (09:00)
[2018-07-09 09:15] LABS: Anion Gap 16 mmol/L; Blood Urea Nitrogen 10 mg/dL (7-17); Calcium 9.3 mg/dL (8.4-10.2); Carbon Dioxide 22 mmol/L (22-30); Chloride 96 mmol/L (98-107); Glucose 376 mg/dL (74-99); Potassium 5.1 mmol/L (3.5-5.1); Sodium 134 mmol/L (137-145)
[2018-07-09] MEDS: TRIMETHOBENZAMIDE 300 MG CAP PO PRN (09:39)
[2018-07-09 11:48] LABS: Glucose,Whole Blood 167 mg/dL (75-99)
--- NOTE | 2018-07-09 12:28 | P.PN ---
Subjective Progress Note Date: 07/09/18 Principal diagnosis: Nausea vomiting Feels much better. Tolerating diet. Objective - Vital Signs Vital signs: Vital Signs Temp 97.8 F 07/09/18 05:58 Pulse 88 07/09/18 05:58 Resp 16 07/09/18 05:58 BP 157/94 07/09/18 05:58 Pulse Ox 100 07/09/18 05:58 Intake & Output 07/08/18 07/09/18 07/09/18 18:59 06:59 18:59 Intake Total 240 0 720 Output Total 500 Balance -260 0 720 Weight 46.4 kg Intake: Intake, IV Titration 0 Amount Sodium Chloride 0.9% 1, 0 000 ml @ 75 mls/hr IV . [id number] JAMAL Rx#:[id number] Oral 240 720 Output: Urine 500 Other: Voiding Method Toilet Toilet # Voids 1 - Exam On physical examination, AO x 3..HEAD: Normocephalic, atraumatic. EYES: No scleral icterus. No conjunctival injection. MOUTH: No lesions, tongue midline. NECK: Trachea midline, no gross abnormalities. CHEST: Clear to auscultation with no wheezing or rhonchi appreciated. HEART: Regular rate and rhythm. ABDOMEN: Soft, obese. Bowel sounds are positive. No organomegaly. No guarding or rigidity. EXTREMITIES: No pedal edema. SKIN: No rashes, no jaundice. NEUROLOGIC: Alert and oriented x3. No focal deficits. - Labs CBC & Chem 7: 07/08/18 06:20 07/09/18 07:41 Labs: Abnormal Lab Results - Last 24 Hours (Table) 07/08/18 07/08/18 07/08/18 Range/Units 11:15 17:04 20:39 Sodium (137-145) mmol/L Chloride (98-107) mmol/L Creatinine (0.52-1.04) mg/dL Glucose (74-99) mg/dL POC Glucose (mg/dL) 238 H 193 H (75-99) mg/dL Urine Glucose (UA) 4+ H (Negative) Urine Ketones 3+ H (Negative) Ur Leukocyte Esterase Trace H (Negative) Urine Bacteria Rare H (None) /hpf 07/09/18 07/09/18 07/09/18 Range/Units 02:47 07:03 07:41 Sodium 134 L (137-145) mmol/L Chloride 96 L (98-107) mmol/L Creatinine 0.43 L (0.52-1.04) mg/dL Glucose 376 H (74-99) mg/dL POC Glucose (mg/dL) 232 H 381 H (75-99) mg/dL Urine Glucose (UA) (Negative) Urine Ketones (Negative) Ur Leukocyte Esterase (Negative) Urine Bacteria (None) /hpf 07/09/18 Range/Units 11:43 Sodium (137-145) mmol/L Chloride (98-107) mmol/L Creatinine (0.52-1.04) mg/dL Glucose (74-99) mg/dL POC Glucose (mg/dL) 167 H (75-99) mg/dL Urine Glucose (UA) (Negative) Urine Ketones (Negative) Ur Leukocyte Esterase (Negative) Urine Bacteria (None) /hpf Microbiology - Last 24 Hours (Table) 07/04/18 19:00 Blood Culture - Preliminary Blood No Growth after 96 hours Assessment and Plan (1) Nausea and vomiting Narrative/Plan: 23-year-old female with known history of diabetic gastroparesis presenting with intractable nausea and vomiting. Patient was previously seen with similar complaints in April at which time EGD was significant only for mild gastritis. Currently the patient is receiving as needed antinausea medications. Current Visit: Yes Status: Acute Code(s): R11.2 - NAUSEA WITH VOMITING, UNSPECIFIED SNOMED Code(s): 44002826 Plan: Supportive care. DC per medicine. Will follow as needed. Patient may contact GI office after DC for tertiary referral assistance for evaluation of gastroparesis/pacemaker. Assessment and plan a care discussed with Dr. Luong
[2018-07-09 13:51] VITALS: BP 120/85; PULSE 103; TEMP 98.3
[2018-07-09] MEDS ORDERED: POTASSIUM CHLORIDE ER 20 MEQ TAB.ER PO STA (15:08)
[2018-07-09 17:07] LABS: Glucose,Whole Blood 89 mg/dL (75-99)
[2018-07-09] MEDS ORDERED: SCOPOLAMINE 1.5MG/72HR PATCH TRANSDERM SCH (17:45)
[2018-07-09 19:48] LABS: Rheumatoid Factor <4 IU/mL (0-15)
--- NOTE | 2018-07-09 20:21 | P.CONS ---
History of Present Illness - Reason for Consult Consult date: 07/09/18 Brain tumors, lympadenopathy - History of Present Illness The patient is a 33-year-old white female, with a computed past medical history. The patient is a type I diabetic on insulin, with very brittle glucose control. She has had multiple hospital admissions. This time the patient was admitted with progressive fatigue and some nausea. She was found to be in DKA and was subsequently admitted. The patient has been complaining of headaches, and is following with neurology. The patient's specific complaint improved with appropriate management. However her mother then stated that MRI done by neurology in the past few months had shown to "brain tumors". Consult was therefore placed for further evaluation and recommendations. During my evaluation, the patient and her mother also noted concerned about enlarged lymph nodes behind both ears. The patient's previous records in the EMR were extensively evaluated. MRI of the brain in 04/03 was negative for any masses. CT of the brain this admission was similarly negative for any mass lesions. On my questioning, the mother stated that the MRI done by Dr. 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 The patient had been having issues with dental infections, leading to a tooth extractions, about 3 months ago. She was also evaluated by Dr. Olivia for possible scalp infection which was ruled out according to the mother. There is no prior history of malignancy. Review of Systems Constitutional: Reports fatigue, Reports lethargy, Reports weakness Eyes: denies blurred vision, denies pain Ears: deny: decreased hearing, ear discharge, earache, tinnitus Ears, nose, mouth and throat: Reports as per HPI Cardiovascular: Denies chest pain, Denies shortness of breath Respiratory: Denies cough Gastrointestinal: Reports as per HPI (Known history of diabetic gastroparesis. Also biopsy-proven glycogen hepatopathy), Reports nausea, Reports vomiting Genitourinary: Reports urinary frequency, Denies dysuria, Denies hematuria Musculoskeletal: Reports muscle weakness Integumentary: Reports pruritus, Reports sores (On scalp) Neurological: Reports headaches, Reports weakness Psychiatric: Reports anxiety, Reports depression Endocrine: Reports fatigue, Reports high blood sugars Hematologic/Lymphatic: Reports as per HPI, Reports lymphadenopathy Past Medical History Past Medical History: Asthma, Diabetes Mellitus, GERD/Reflux, Syncope Additional Past Medical History / Comment(s): Pt recently admitted to [facility] on 06/12/17 with DKA and elevated lactic acid, transaminitis, metabolic acidosis, glycogenic hepatology-she transferred to [facility] where she states they also diagnosed her with gastroparesis. Other Hx: Recent GI illness, recent UTI and completed antibiotic, IDDM type I, DKAs, syncope pt thinks related to hypoglycemia, back pain-bulging disc, L sided sciatica, ovarian cyst. History of Any Multi-Drug Resistant Organisms: MRSA Year Discovered:: 03/2014 MDRO Source:: GROIN AREA Past Surgical History: Cholecystectomy Past Anesthesia/Blood Transfusion Reactions: No Reported Reaction Past Psychological History: Anxiety, Depression Additional Psychological History / Comment(s): Pt resides with her mother. She is independent. Smoking Status: Light tobacco smoker Past Alcohol Use History: None Reported Additional Past Alcohol Use History / Comment(s): Pt states she smokes very lightly, a pack of cigarettes can last 2-4 weeks. Past Drug Use History: Marijuana Additional Drug Use History / Comment(s): occasional marijuana use for pain mgt - Past Family History Mother History Unknown: Yes Family Medical History: No Reported History Additional Family Medical History / Comment(s): "heart disease" Father Family Medical History: Diabetes Mellitus Additional Family Medical History / Comment(s): Diabetes type II.; Heart disease Medications and Allergies Home Medications Medication Instructions Recorded Confirmed Type Levothyroxine Sodium [Synthroid] 25 mcg PO DAILY 01/03/18 07/04/18 History Lidocaine 4% Cream [Lmx 4] 1 applic TOPICAL BID 01/03/18 07/04/18 History Acetaminophen-Codeine 300-30mg 1 tab PO Q8HR 02/06/18 07/04/18 History [Tylenol w/codeine #3] Albuterol Inhaler [Ventolin Hfa 1 - 2 puff INHALATION RT-BID 02/06/18 07/04/18 History Inhaler] Cholecalciferol (Vitamin D3) 2,000 unit PO DAILY 02/06/18 07/04/18 History [Vitamin D3] Cyclobenzaprine [Flexeril] 5 - 10 mg PO BID 02/06/18 07/04/18 History Gabapentin [Neurontin] 300 mg PO BID 02/06/18 07/04/18 History hydrOXYzine HCL [Atarax] 25 mg PO TID PRN 02/06/18 07/04/18 History Ondansetron Odt [Zofran ODT] 8 mg PO Q8HR PRN 05/08/18 07/04/18 History Insulin Lispro [Admelog Solostar] 5 unit SQ TID-W/MEALS #1 insuln.pen 05/14/18 07/04/18 Rx Omeprazole [PriLOSEC] 40 mg PO AC-BRKFST #30 capsule.dr 05/14/18 07/04/18 Rx Insulin Glargine [Lantus] 11 units SQ HS 06/04/18 07/04/18 History Metoprolol Tartrate [Lopressor] 25 mg PO BID 06/04/18 07/04/18 History Trimethobenzamide [Tigan] 300 mg PO QID PRN 5 Days #20 cap 07/09/18 Rx Allergies Allergy/AdvReac Type Severity Reaction Status Date / Time No Known Allergies Allergy Verified 07/04/18 18:47 Physical Exam Vitals: Vital Signs Temp Pulse Resp BP Pulse Ox 07/09/18 13:00 98.3 F 103 H 16 120/85 100 07/09/18 05:58 97.8 F 88 16 157/94 100 07/08/18 21:10 98.9 F 105 H 18 138/89 98 Intake and Output 07/09/18 07/09/18 07/09/18 06:59 14:59 22:59 Intake Total 720 Balance 720 Intake: Oral 720 Other: Voiding Method Toilet Toilet # Voids 1 3 - Constitutional General appearance: no acute distress - EENT Eyes: EOMI, PERRLA ENT: hearing grossly normal, normal oropharynx - Neck Posterior auricular nodes enlarged bilaterally, 1.5 to 2cm. mobility normal for this area, with consistency also normal. Bilateral submental nodes mildly prominent. Also mobile with normal consistency. Bilateral cervical nodes palpable, shotty, less than 5 mm, mobile, with normal consistency Thyroid: bilateral: normal size - Respiratory Respiratory: bilateral: CTA - Cardiovascular Rhythm: regular Heart sounds: normal: S1, S2 - Gastrointestinal General gastrointestinal: normal bowel sounds, soft - Integumentary Very extensive lesions covering the scalp. These are essentially deep excoriations due to severe scratching in various stages of ulceration and healing. These cover majority of the scalp. No active purulent discharge noted at this time. Tender to palpation. Integumentary: ulcer - Neurologic Neurologic: CNII-XII intact - Musculoskeletal Musculoskeletal: strength equal bilaterally Results CBC & Chem 7: 07/08/18 06:20 07/09/18 07:41 Labs: Abnormal Lab Results - Last 24 Hours (Table) 07/08/18 07/09/18 07/09/18 Range/Units 20:39 02:47 07:03 Sodium (137-145) mmol/L Chloride (98-107) mmol/L Creatinine (0.52-1.04) mg/dL Glucose (74-99) mg/dL POC Glucose (mg/dL) 193 H 232 H 381 H (75-99) mg/dL Lactate Dehydrogenase (313-618) U/L 07/09/18 07/09/18 07/09/18 Range/Units 07:41 07:41 11:43 Sodium 134 L (137-145) mmol/L Chloride 96 L (98-107) mmol/L Creatinine 0.43 L (0.52-1.04) mg/dL Glucose 376 H (74-99) mg/dL POC Glucose (mg/dL) 167 H (75-99) mg/dL Lactate Dehydrogenase 308 L (313-618) U/L Microbiology - Last 24 Hours (Table) 07/04/18 19:00 Blood Culture - Preliminary Blood No Growth after 96 hours Comments: Pathology reports from EGD and liver biopsy reviewed Chest x-ray: report reviewed CT scan - abdomen: report reviewed CT Scan - head: report reviewed CT scan - pelvis: report reviewed US - abdomen: report reviewed MRI - head: report reviewed Assessment and Plan (1) Lesion of brain Narrative/Plan: As noted, MRI of the brain here in 04/03, and CT of the brain this admission did not show any brain tumors. Therefore the history is based on information provided by the mother. She was advised that small pineal gland or clivus tumors are usually benign. Intervention is required only if they are symptomatic. In that situation neurosurgical evaluation is required. There is no role for medical oncology. She states that neurosurgical evaluation has been mentioned by neurology. She was advised to continue follow-up with urology in this regard MRI report will be obtained from Dr. Rogers's office and reviewed Status: Acute Code(s): G93.9 - DISORDER OF BRAIN, UNSPECIFIED SNOMED Code(s): 062648313 (2) Lymphadenopathy Narrative/Plan: The patient does have enlarged nodes in the posterior auricular area. Submental nodes are borderline, while the cervical nodes are palpable but not enlarged. In all the above areas, the nodes have a normal physical exam Most likely these nodes are reactive to the extensive inflammation present on the patient's scalp as these would be the draining nodes for that area. As noted, and inflammation is due to compulsive, severe scratching of the scalp by the patient. The suspicion for a malignant etiology is quite low and this clinical situation. I will order lab work up for adenopathy to complete workup for my standpoint. ENT will also be consulted for evaluation. However, as a benign etiology is most likely, she can follow-up as an outpatient also. Status: Acute Code(s): R59.1 - GENERALIZED ENLARGED LYMPH NODES SNOMED Code(s): 19027896 (3) Leukocytosis Narrative/Plan: This is reactive, with predominant neutrophilia noted during white cell increase. WBC has normalized with treatment of her DKA Status: Acute Code(s): D72.829 - ELEVATED WHITE BLOOD CELL COUNT, UNSPECIFIED SNOMED Code(s): 122620093 Plan: The patient has multiple other medical issues as noted in the past medical history. Defer to the admitting service and other consultants for management of her multiple other medical problems
--- NOTE | 2018-07-10 10:14 | CDI ---
Documentation Clarification Form Date: 07/15/18 From: Jazmín Hoskins Tori Jacobson, Neurology Manager Hours-8:30 am & 5 pm [place] Admit Date: 07/04/2018 7:23:00 PM Patient Name: Teri Henry Visit Number: [id number] Discharge Date: 07/09/2018 6:25:00 PM ATTENTION: The Clinical Documentation Specialists (CDI) and [facility] Coding Staff appreciate your assistance in clarifying documentation. Please respond to the clarification below the line at the bottom and electronically sign. The CDI & [facility] Coding staff will review the response and follow-up if needed. Please note: Queries are made part of the Legal Health Record. If you have any questions, please contact the author of this message via ITS. Dr. Valdez, Weight loss, concern for bulimia nervosa is documented in the prog notes.. Dietary Consult documents malnutrition. History/Risk Factors: DKA, GERD, DM Gastroparesis Clinical Indicators: Labs: Albumin/ Pre albumin/Total Protein: Albumin 5.4- TP 6.0 Current BMI: 17.6 Insufficient energy intake: Treatment: Modified Diet Dietary Consult: Yes Supplements: Yes In your professional opinion, can you please clarify if these findings signify one of the following conditions? Mild Protein-Calorie Malnutrition Moderate Protein-Calorie Malnutrition Severe Protein-Calorie Malnutrition Malnutrition, unspecified Other condition, please specify Unable to determine Mild Protein-Calorie Malnutrition MTDD
[2018-07-12 15:08] LABS: Albumin 3.59 g/dL (3.80-4.90); Gamma Globulin 0.71 g/dL (0.70-1.50)
--- NOTE | 2018-07-15 14:03 | P.DS ---
Providers Date of admission: 07/04/18 19:23 Attending physician: Annabelle Antony MD Consults: 07/04/18 19:24 Consult Physician Stat Consulting Provider: Sridevi Baires Consult Reason/Comments: DKA, Do you want consulting provider notified?: Yes 07/05/18 14:56 Consult Physician Routine Consulting Provider: Megan Mckeon Consult Reason/Comments: coffee-ground emesis Do you want consulting provider notified?: Yes 07/06/18 10:56 Consult Physician Routine Consulting Provider: Shekhar Odell Consult Reason/Comments: potential disordered eating patterns and weightloss Do you want consulting provider notified?: Yes 07/08/18 09:06 Consult Physician Urgent Consulting Provider: Everton Warner Consult Reason/Comments: h/o brain tumor Do you want consulting provider notified?: Yes Primary care physician: [facility] Hospital Course: Diagnoses: Diabetic ketoacidosis, resolved. Intractable nausea vomiting, mostly related to diabetic gastroparesis and/or autonomic dysfunction. Resolved Recent History of 2 brain tumor, with bilateral lymphadenopathy behind ears for about 2 months as per patient. 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 Bilateral retroauricular lymphadenopathy. Who presents because of signs symptoms of diabetic ketoacidosis. Most likely triggered by her UTI infection and autonomic dysfunction. Patient was adherent to her treatment. Patient was treated in the ICU with insulin drips. And then anion Gap Closed and transferred to the medical general floor and she got stabilized.She had intractable nausea vomiting which was better controlled prior to discharge with antinausea medication including Zofran scheduled dose, scopolamine patch and Tigan when necessary. Currently patient tolerating diet well. Diet advanced. Patient has only minimal nausea with no vomiting. Also her abdominal epigastric pain is almost resolved and only minimal pain remains, epigastric tenderness is completely resolved. Patient also has history of 2 brain tumors, she follows up with neurologist Dr. Rogers and production line assembler as an outpatient for this purpose as per patient. She has eight-month history of bilateral retroauricular lymphadenopathy, patient states that they shrinked in size over the last 2 months. Oncology evaluation: pt imaging in this hospital did not show brain tumours and it is by history provided by mother only , pt was advised to follow up with her neurologist regarding this and she agrees ; also her enlarged nodes in the posterior auricular area mostly related to her scalp inflammation and most likely but recommend ENT evaluation which can be done as outpt also pt was treated for UTI while in the hospital On the day of discharge patient feels well and back close to her baseline. Patient feels ready to go home. No more postural symptoms. Except for mild nausea no other complaints. Patient feels ready to go home today. Patient has been cleared by gastroenterology team for discharge. Problems and management plan were discussed with the patient and she verbalized understanding and acceptance Patient was found stable and can be discharged home however she needs follow-up as an outpatient. Gen: patient is a AAOx3, no distress CVS: S1-S2, RRR, no murmur Lungs: B/L CTA, no wheezing Abdomen: soft, no distention, no tenderness, positive bowel sounds Extremity: no leg edema or induration Time spent more than 35 minutes Addendum on 07/15/2018, I spoke with her PCP Dr. Sebastian and off that her with the patient's problems including lymph nodes behind the ear, history of tumor, DKA, intractable nausea vomiting, possible gastroparesis with autonomic dysfunction. With recommendation for outpatient referral including the ENT for her lymph nodes, and others as above. And she kindly took note of these Patient Condition at Discharge: Fair Plan - Discharge Summary Discharge Rx Participant: No New Discharge Prescriptions: New Trimethobenzamide [Tigan] 300 mg PO QID PRN 5 Days #20 cap PRN Reason: Nausea And Vomiting Continue Lidocaine 4% Cream [Lmx 4] 1 applic TOPICAL BID Levothyroxine Sodium [Synthroid] 25 mcg PO DAILY Acetaminophen-Codeine 300-30mg [Tylenol w/codeine #3] 1 tab PO Q8HR Cyclobenzaprine [Flexeril] 5 - 10 mg PO BID Albuterol Inhaler [Ventolin Hfa Inhaler] 1 - 2 puff INHALATION RT-BID hydrOXYzine HCL [Atarax] 25 mg PO TID PRN PRN Reason: Anxiety Gabapentin [Neurontin] 300 mg PO BID Cholecalciferol (Vitamin D3) [Vitamin D3] 2,000 unit PO DAILY Ondansetron Odt [Zofran ODT] 8 mg PO Q8HR PRN PRN Reason: Nausea Insulin Lispro [Admelog Solostar] 5 unit SQ TID-W/MEALS #1 insuln.pen Omeprazole [PriLOSEC] 40 mg PO AC-BRKFST #30 capsule. Metoprolol Tartrate [Lopressor] 25 mg PO BID Insulin Glargine [Lantus] 11 units SQ HS Discharge Medication List Levothyroxine Sodium [Synthroid] 25 mcg PO DAILY 01/03/18 [History] Lidocaine 4% Cream [Lmx 4] 1 applic TOPICAL BID 01/03/18 [History] Acetaminophen-Codeine 300-30mg [Tylenol w/codeine #3] 1 tab PO Q8HR 02/06/18 [History] Albuterol Inhaler [Ventolin Hfa Inhaler] 1 - 2 puff INHALATION RT-BID 02/06/18 [History] Cholecalciferol (Vitamin D3) [Vitamin D3] 2,000 unit PO DAILY 02/06/18 [History] Cyclobenzaprine [Flexeril] 5 - 10 mg PO BID 02/06/18 [History] Gabapentin [Neurontin] 300 mg PO BID 02/06/18 [History] hydrOXYzine HCL [Atarax] 25 mg PO TID PRN 02/06/18 [History] Ondansetron Odt [Zofran ODT] 8 mg PO Q8HR PRN 05/08/18 [History] Insulin Lispro [Admelog Solostar] 5 unit SQ TID-W/MEALS #1 insuln.pen 05/14/18 [Rx] Omeprazole [PriLOSEC] 40 mg PO AC-BRKFST #30 capsule. 05/14/18 [Rx] Insulin Glargine [Lantus] 11 units SQ HS 06/04/18 [History] Metoprolol Tartrate [Lopressor] 25 mg PO BID 06/04/18 [History] Trimethobenzamide [Tigan] 300 mg PO QID PRN 5 Days #20 cap 07/09/18 [Rx] Follow up Appointment(s)/Referral(s): Everton Warner MD [STAFF PHYSICIAN] - 2 Weeks (No need for appt. at this time. If lab work comes back abnormal, Dr. Warner's office will be in touch about need for follow-up. ) Ana Sebastian, [facility] [REFERRING] - 07/14/18 9:30 am (Friday) Deep Barrios MD [STAFF PHYSICIAN] - 1 Week (Does not accept patients insurance.) Walter Gibson MD [STAFF PHYSICIAN] - 1 Week (Office currently closed. Patient will need to make own follow-up appt. Consultation for: Posterior auricular and lymph node enlargement.) Shekhar Odell DO [Doctor of Osteopathic Medicine] - 1 Week ([place] [phone] ) Osvaldo Luong MD [STAFF PHYSICIAN] - 1 Week (Patient to contact Dr. Luong's office after discharge. Office will help patient to set up an appt. with specialist out of [facility] for gastropoeresis. ) Patient Instructions/Handouts: Trimethobenzamide (By mouth), Diabetic Gastroparesis (DC), Low Fiber Diet (DC), Type 1 Diabetes in Adults: New Diagnosis (DC) Activity/Diet/Wound Care/Special Instructions: Monitor Blood Glucose before meals, bedtime and 2:00a.m. Keep a log of blood sugar results and review with production line assembler. Discharge Disposition: HOME SELF-CARE
== END 2018-07-09 18:25 | disposition home or self-care (01) | DRG 638 ==
LOC: EC 16:34 → 3SCARD 19:23 → 3NMEDONC 07-08 16:38
PROVIDERS: ADMIT Internal Medicine; ATTEND Internal Medicine
DX: E10.10 Type 1 diabetes mellitus with ketoacidosis without coma (principal); N39.0 Urinary tract infection, site not specified; E44.1 Mild protein-calorie malnutrition; Z68.1 Body mass index [BMI] 19.9 or less, adult; K31.84 Gastroparesis; E10.43 Type 1 diabetes mellitus with diabetic autonomic (poly)neuropathy; K21.9 Gastro-esophageal reflux disease without esophagitis; J45.909 Unspecified asthma, uncomplicated; F41.9 Anxiety disorder, unspecified; F32.9 Major depressive disorder, single episode, unspecified; F17.210 Nicotine dependence, cigarettes, uncomplicated; I10 Essential (primary) hypertension; E03.9 Hypothyroidism, unspecified; B95.1 Streptococcus, group B, as the cause of diseases classified elsewhere; R59.1 Generalized enlarged lymph nodes; G93.9 Disorder of brain, unspecified; R00.0 Tachycardia, unspecified; Z71.3 Dietary counseling and surveillance; Z79.4 Long term (current) use of insulin; Z79.890 Hormone replacement therapy; Z79.899 Other long term (current) drug therapy; Z87.440 Personal history of urinary (tract) infections; Z86.14 Personal history of Methicillin resistant Staphylococcus aureus infection; Z90.49 Acquired absence of other specified parts of digestive tract; Z83.3 Family history of diabetes mellitus
CPT/HCPCS: 36415; 71045; 80048; 80051; 80053; 81001; 81025; 82009; 82271; 82565; 82803; 82947; 83036; 83605; 83615; 83690; 83735; 83883; 84100; 84165; 84520; 84702; 85025; 85027; 86038; 86334; 86431; 87040; 87086; 93005; 96361; 96374; 96375; 99285

== ENCOUNTER 2018-07-18 13:06 | Inpatient (IN) | payer OTHER ==
[2018-07-18] MEDS ORDERED: SODIUM CHLORIDE 0.9% 1,000 ML IV STA (13:43)
--- NOTE | 2018-07-18 13:58 | ED ---
Headache HPI - General Chief Complaint: Headache Stated Complaint: BURCIAGA Time Seen by Provider: 07/18/18 13:24 Source: RN notes reviewed, old records reviewed Mode of arrival: ambulatory Limitations: no limitations - History of Present Illness Initial Comments: Patient is a 23-year-old female with a history of brain tumors presents the emergency department today for evaluation for scalp swelling and headache. She's had 2 episodes of near syncope. Patient has a history of a pineal gland tumor and does follow with Dr. Joyce. She states that she has had chronic bilateral auricular lymphadenopathy for months. Patient states that she's also had some lesions over her scalp from when she caused by picking due to anxiety. Patient reports that she was seen by infectious disease and was told this was not infected at the time. She denies any specific fevers or chills. She reports her blood sugars have been running normal, she was recently admitted for DKA. Patient states that she took a Tylenol with Codeine prior to arrival and reports that her headaches 5 out of 10 at this time. Patient states that she has no peripheral paresthesias, visual changes or hearing changes. - Related Data Home Medications Medication Instructions Recorded Confirmed Levothyroxine Sodium [Synthroid] 25 mcg PO DAILY 01/03/18 07/04/18 Lidocaine 4% Cream [Lmx 4] 1 applic TOPICAL BID 01/03/18 07/04/18 Acetaminophen-Codeine 300-30mg 1 tab PO Q8HR 02/06/18 07/04/18 [Tylenol w/codeine #3] Albuterol Inhaler [Ventolin Hfa 1 - 2 puff INHALATION RT-BID 02/06/18 07/04/18 Inhaler] Cholecalciferol (Vitamin D3) 2,000 unit PO DAILY 02/06/18 07/04/18 [Vitamin D3] Cyclobenzaprine [Flexeril] 5 - 10 mg PO BID 02/06/18 07/04/18 Gabapentin [Neurontin] 300 mg PO BID 02/06/18 07/04/18 hydrOXYzine HCL [Atarax] 25 mg PO TID PRN 02/06/18 07/04/18 Ondansetron Odt [Zofran ODT] 8 mg PO Q8HR PRN 05/08/18 07/04/18 Insulin Glargine [Lantus] 11 units SQ HS 06/04/18 07/04/18 Metoprolol Tartrate [Lopressor] 25 mg PO BID 06/04/18 07/04/18 Previous Rx's Medication Instructions Recorded Insulin Lispro [Admelog Solostar] 5 unit SQ TID-W/MEALS #1 insuln.pen 05/14/18 Omeprazole [PriLOSEC] 40 mg PO AC-BRKFST #30 capsule. 05/14/18 Trimethobenzamide [Tigan] 300 mg PO QID PRN 5 Days #20 cap 07/09/18 Allergies Allergy/AdvReac Type Severity Reaction Status Date / Time No Known Allergies Allergy Verified 07/18/18 13:18 Review of Systems ROS Statement: Those systems with pertinent positive or pertinent negative responses have been documented in the HPI. ROS Other: All systems not noted in ROS Statement are negative. Past Medical History Past Medical History: Asthma, Diabetes Mellitus, GERD/Reflux, Syncope Additional Past Medical History / Comment(s): Pt recently admitted to [facility] on 06/12/17 with DKA and elevated lactic acid, transaminitis, metabolic acidosis, glycogenic hepatology-she transferred to [facility] where she states they also diagnosed her with gastroparesis. Other Hx: Recent GI illness, recent UTI and completed antibiotic, IDDM type I, DKAs, syncope pt thinks related to hypoglycemia, back pain-bulging disc, L sided sciatica, ovarian cyst. History of Any Multi-Drug Resistant Organisms: MRSA Date of last positivie culture/infection: 03/2014 MDRO Source:: GROIN AREA Past Surgical History: Cholecystectomy Past Anesthesia/Blood Transfusion Reactions: No Reported Reaction Past Psychological History: Anxiety, Depression Smoking Status: Light tobacco smoker Past Alcohol Use History: None Reported Past Drug Use History: Marijuana - Past Family History Mother History Unknown: Yes Family Medical History: No Reported History Additional Family Medical History / Comment(s): "heart disease" Father Family Medical History: Diabetes Mellitus Additional Family Medical History / Comment(s): Diabetes type II.; Heart disease General Exam - General Exam Comments Initial Comments: Since the 23-year-old female. Alert and oriented 3. He is very thin, cachectic appearing. Limitations: no limitations General appearance: alert, in no apparent distress Head exam: Present: atraumatic, normocephalic, normal inspection, other (Patient has evidence of pitting edema soft tissue swelling over the frontal scalp with a prominence over the frontal sinuses.) Eye exam: Present: normal appearance, PERRL, EOMI. Absent: scleral icterus, conjunctival injection, periorbital swelling ENT exam: Present: normal exam, mucous membranes moist Neck exam: Present: normal inspection. Absent: tenderness, meningismus, lymphadenopathy Respiratory exam: Present: normal lung sounds bilaterally. Absent: respiratory distress, wheezes, rales, rhonchi, stridor Cardiovascular Exam: Present: regular rate, normal rhythm, normal heart sounds. Absent: systolic murmur, diastolic murmur, rubs, gallop, clicks GI/Abdominal exam: Present: soft, normal bowel sounds. Absent: distended, tenderness, guarding, rebound, rigid Extremities exam: Present: normal inspection, full ROM, normal capillary refill. Absent: tenderness, pedal edema, joint swelling, calf tenderness Back exam: Present: normal inspection Neurological exam: Present: alert, oriented X3, CN II-XII intact Psychiatric exam: Present: normal affect, normal mood Skin exam: Present: warm, dry, intact, normal color. Absent: rash Course Vital Signs 07/18/18 07/18/18 13:15 15:49 Temperature 98.7 F Pulse Rate 114 H 105 H Respiratory 18 20 Rate Blood Pressure 103/72 128/82 O2 Sat by Pulse 99 98 Oximetry Medical Decision Making - Medical Decision Making Patient is a 23-year-old female presenting to emergency department for evaluation with complaints of scalp soft tissue swelling and pain and headache. She has history of brain tumors. Family was initially concerned for hydrocephalus. Patient has pitting edema over the frontal scalp. No erythema. She has chronic scalp abrasions due to anxiety picking at her scalp. At this time Patient received IV fluids labwork obtained. CT edge of the head and neck was completed. There is evidence of mild soft tissue scrotal swelling but no abscess. Initial concern could've been for a puffy pot tumor. There is no evidence of abscesses on CT. The CT of the brain was normal no signs of hydrocephalus Patient has no neurological deficits. Patient labwork to show evidence of leukocytosis and mild lactic acidosis. Patient is a brittle diabetic. At this time concern for possibility of scalp infection related to her swelling. Started on Unasyn. Patient will be admitted at this time with infectious disease consult. - Lab Data Result diagrams: 07/18/18 14:16 07/18/18 14:16 Lab Results 07/18/18 07/18/18 07/18/18 Range/Units 14:16 14:16 14:16 WBC 12.6 H (3.8-10.6) k/uL RBC 5.12 (3.80-5.40) m/uL Hgb 14.1 (11.4-16.0) gm/dL Hct 44.3 (34.0-46.0) % MCV 86.6 (80.0-100.0) fL MCH 27.6 (25.0-35.0) pg MCHC 31.8 (31.0-37.0) g/dL RDW 14.2 (11.5-15.5) % Plt Count 504 H (150-450) k/uL Neutrophils % 62 % Lymphocytes % 29 % Monocytes % 4 % Eosinophils % 2 % Basophils % 1 % Neutrophils # 7.9 H (1.3-7.7) k/uL Lymphocytes # 3.7 (1.0-4.8) k/uL Monocytes # 0.5 (0-1.0) k/uL Eosinophils # 0.3 (0-0.7) k/uL Basophils # 0.1 (0-0.2) k/uL PT 9.3 (9.0-12.0) sec INR 0.8 (<1.2) APTT 22.3 (22.0-30.0) sec Sodium 142 (137-145) mmol/L Potassium 4.2 (3.5-5.1) mmol/L Chloride 99 (98-107) mmol/L Carbon Dioxide 30 (22-30) mmol/L Anion Gap 13 mmol/L BUN 10 (7-17) mg/dL Creatinine 0.29 L (0.52-1.04) mg/dL Est GFR (CKD-EPI)AfAm >90 (>60 ml/min/1.73 sqM) Est GFR (CKD-EPI)NonAf >90 (>60 ml/min/1.73 sqM) Glucose 89 (74-99) mg/dL POC Glucose (mg/dL) (75-99) mg/dL POC Glu Wallpaper Inspector ID Plasma Lactic Acid Ben (0.7-2.0) mmol/L Calcium 10.4 H (8.4-10.2) mg/dL Total Bilirubin 0.5 (0.2-1.3) mg/dL AST 129 H (14-36) U/L ALT 58 H (9-52) U/L Alkaline Phosphatase 228 H (38-126) U/L Total Protein 8.3 H (6.3-8.2) g/dL Albumin 5.1 H (3.5-5.0) g/dL Urine Color Urine Appearance (Clear) Urine pH (5.0-8.0) Ur Specific [place] (1.001-1.035) Urine Protein (Negative) Urine Glucose (UA) (Negative) Urine Ketones (Negative) Urine Blood (Negative) Urine Nitrite (Negative) Urine Bilirubin (Negative) Urine Urobilinogen (<2.0) mg/dL Ur Leukocyte Esterase (Negative) Urine WBC (0-5) /hpf Ur Squamous Epith Cells (0-4) /hpf Urine Mucus (None) /hpf Acetone, Qual Negative (Negative) 07/18/18 07/18/18 07/18/18 Range/Units 14:16 14:37 15:45 WBC (3.8-10.6) k/uL RBC (3.80-5.40) m/uL Hgb (11.4-16.0) gm/dL Hct (34.0-46.0) % MCV (80.0-100.0) fL MCH (25.0-35.0) pg MCHC (31.0-37.0) g/dL RDW (11.5-15.5) % Plt Count (150-450) k/uL Neutrophils % % Lymphocytes % % Monocytes % % Eosinophils % % Basophils % % Neutrophils # (1.3-7.7) k/uL Lymphocytes # (1.0-4.8) k/uL Monocytes # (0-1.0) k/uL Eosinophils # (0-0.7) k/uL Basophils # (0-0.2) k/uL PT (9.0-12.0) sec INR (<1.2) APTT (22.0-30.0) sec Sodium (137-145) mmol/L Potassium (3.5-5.1) mmol/L Chloride (98-107) mmol/L Carbon Dioxide (22-30) mmol/L Anion Gap mmol/L BUN (7-17) mg/dL Creatinine (0.52-1.04) mg/dL Est GFR (CKD-EPI)AfAm (>60 ml/min/1.73 sqM) Est GFR (CKD-EPI)NonAf (>60 ml/min/1.73 sqM) Glucose (74-99) mg/dL POC Glucose (mg/dL) 52 L (75-99) mg/dL POC Glu Wallpaper Inspector ID Alphonse Contreras Plasma Lactic Acid Ben 2.7 H* (0.7-2.0) mmol/L Calcium (8.4-10.2) mg/dL Total Bilirubin (0.2-1.3) mg/dL AST (14-36) U/L ALT (9-52) U/L Alkaline Phosphatase (38-126) U/L Total Protein (6.3-8.2) g/dL Albumin (3.5-5.0) g/dL Urine Color Yellow Urine Appearance Clear (Clear) Urine pH 7.0 (5.0-8.0) Ur Specific [place] 1.024 (1.001-1.035) Urine Protein Trace H (Negative) Urine Glucose (UA) 4+ H (Negative) Urine Ketones Negative (Negative) Urine Blood Negative (Negative) Urine Nitrite Negative (Negative) Urine Bilirubin Negative (Negative) Urine Urobilinogen <2.0 (<2.0) mg/dL Ur Leukocyte Esterase Moderate H (Negative) Urine WBC 4 (0-5) /hpf Ur Squamous Epith Cells 3 (0-4) /hpf Urine Mucus Rare H (None) /hpf Acetone, Qual (Negative) 07/18/18 Range/Units 16:16 WBC (3.8-10.6) k/uL RBC (3.80-5.40) m/uL Hgb (11.4-16.0) gm/dL Hct (34.0-46.0) % MCV (80.0-100.0) fL MCH (25.0-35.0) pg MCHC (31.0-37.0) g/dL RDW (11.5-15.5) % Plt Count (150-450) k/uL Neutrophils % % Lymphocytes % % Monocytes % % Eosinophils % % Basophils % % Neutrophils # (1.3-7.7) k/uL Lymphocytes # (1.0-4.8) k/uL Monocytes # (0-1.0) k/uL Eosinophils # (0-0.7) k/uL Basophils # (0-0.2) k/uL PT (9.0-12.0) sec INR (<1.2) APTT (22.0-30.0) sec Sodium (137-145) mmol/L Potassium (3.5-5.1) mmol/L Chloride (98-107) mmol/L Carbon Dioxide (22-30) mmol/L Anion Gap mmol/L BUN (7-17) mg/dL Creatinine (0.52-1.04) mg/dL Est GFR (CKD-EPI)AfAm (>60 ml/min/1.73 sqM) Est GFR (CKD-EPI)NonAf (>60 ml/min/1.73 sqM) Glucose (74-99) mg/dL POC Glucose (mg/dL) 54 L (75-99) mg/dL POC Glu Wallpaper Inspector ID Alphonse Contreras Plasma Lactic Acid Ben (0.7-2.0) mmol/L Calcium (8.4-10.2) mg/dL Total Bilirubin (0.2-1.3) mg/dL AST (14-36) U/L ALT (9-52) U/L Alkaline Phosphatase (38-126) U/L Total Protein (6.3-8.2) g/dL Albumin (3.5-5.0) g/dL Urine Color Urine Appearance (Clear) Urine pH (5.0-8.0) Ur Specific [place] (1.001-1.035) Urine Protein (Negative) Urine Glucose (UA) (Negative) Urine Ketones (Negative) Urine Blood (Negative) Urine Nitrite (Negative) Urine Bilirubin (Negative) Urine Urobilinogen (<2.0) mg/dL Ur Leukocyte Esterase (Negative) Urine WBC (0-5) /hpf Ur Squamous Epith Cells (0-4) /hpf Urine Mucus (None) /hpf Acetone, Qual (Negative) 07/18/18 15:38 EKG shows sinus tachycardia, nonspecific T wave adamantly. Abnormal EKG. Ventricular rate of 113 bpm. Was 134 ms. QRS ration 80 ms. QT QTc is 316/433 ms. - Radiology Data Radiology results: report reviewed Negative CT angiogram of brain negative CT angiogram of the neck, normal noncontrast CT of the brain. CT shows mild frontal scalp soft tissue swelling. Numerous posterior triangle bilateral enlarged cervical lymph nodes measuring up to 1.7 cm. No evidence of abscess. Disposition Clinical Impression: Superficial swelling of scalp, Lactic acidosis, Scalp abrasion, Lymphadenopathy, Elevated liver enzymes, Lesion of brain Disposition: ADMITTED IP TO THIS [facility] Condition: Stable Is patient prescribed a controlled substance at d/c from ED?: No Referrals: Deborah Stearns MD [Primary Care Provider] - 1-2 days Time of Disposition: 16:53
[2018-07-18 14:30] LABS: Basophils # (A) 0.1 k/uL (0-0.2); Basophils % (A) 1 %; Eosinophils # (A) 0.3 k/uL (0-0.7); Eosinophils % (A) 2 %; HCT 44.3 % (34.0-46.0); HGB 14.1 gm/dL (11.4-16.0); Lymphocytes # (A) 3.7 k/uL (1.0-4.8); Lymphocytes % (A) 29 %; MCH 27.6 pg (25.0-35.0); MCHC 31.8 g/dL (31.0-37.0); MCV 86.6 fL (80.0-100.0); Mean Platelet Volume 6.5; Monocytes # (A) 0.5 k/uL (0-1.0); Monocytes % (A) 4 %; Neutrophils # (A) 7.9 k/uL (1.3-7.7); Neutrophils % (A) 62 %; Platelet Count 504 k/uL (150-450); RBC 5.12 m/uL (3.80-5.40); RDW 14.2 % (11.5-15.5); WBC 12.6 k/uL (3.8-10.6)
[2018-07-18 14:35] LABS: ALT 58 U/L (9-52); AST 129 U/L (14-36); Albumin 5.1 g/dL (3.5-5.0); Alkaline Phosphatase 228 U/L (38-126); Anion Gap 13 mmol/L; Blood Urea Nitrogen 10 mg/dL (7-17); Calcium 10.4 mg/dL (8.4-10.2); Carbon Dioxide 30 mmol/L (22-30); Chloride 99 mmol/L (98-107); Glucose 89 mg/dL (74-99); Potassium 4.2 mmol/L (3.5-5.1); Sodium 142 mmol/L (137-145); Total Bilirubin 0.5 mg/dL (0.2-1.3); Total Protein 8.3 g/dL (6.3-8.2)
[2018-07-18 14:52] LABS: Appearance,Urine Clear (Clear); Bilirubin,Urine Negative (Negative); Blood,Urine Negative (Negative); Color,Urine Yellow; Glucose,Urine (UA) 4+ (Negative); Ketones,Urine Negative (Negative); Leukocyte Esterase,Urine Moderate (Negative); Mucus,Urine Rare /hpf; Nitrite,Urine Negative (Negative); Protein,Urine Trace (Negative); Specific Gravity,Urine 1.024 (1.001-1.035); Squamous Epithelial Cell,Urine 3 /hpf (0-4); Urobilinogen,Urine <2.0 mg/dL (<2.0)
[2018-07-18 14:53] LABS: INR 0.8 (<1.2); Partial Thromboplastin Time 22.3 sec (22.0-30.0); Prothrombin Time 9.3 sec (9.0-12.0)
[2018-07-18] MEDS ORDERED: KETOROLAC 30 MG/ML 1 ML VIAL IVP STA (15:33)
[2018-07-18] MEDS ORDERED: SODIUM CHLORIDE 0.9% 1,000 ML IV ONE (15:33)
--- NOTE | 2018-07-18 15:34 | CT ---
EXAMINATION TYPE: CT angio head neck DATE OF EXAM: 07/18/2018 HISTORY: Headache and dizziness, hydrocephalus. COMPARISON: CT DLP: 1426.9 mGycm. Automated Exposure Control for Dose Reduction was Utilized. TECHNIQUE: CTA scan of the neck is performed without and with IV Contrast, patient injected with 50 mL of Isovue 370, axial images are obtained, coronal and sagittal reformatted images are reviewed. Th ree-D reconstructed images are created on an independent workstation and reviewed. FINDINGS: The noncontrast images show normal ventricles and sulci. There is no mass effect nor midline shift. T here is no sign of intracranial hemorrhage. There is no hydrocephalus. Calvarium is intact. There is normal branching pattern of the great vessels on the aortic arch. There is bilateral arteria l flow in the subclavian arteries. Is arterial flow in the common internal and external carotid arter ies bilaterally. There is bilateral arterial flow in the vertebral arteries. Left vertebral artery is larger than the right. There is no evidence of carotid or vertebral artery dissection. Carotid arter y bifurcations are widely patent. There is arterial flow in the anterior middle and posterior cerebral arteries. There is no mass effec t. There is no evidence of intracranial aneurysm or neovascularity. There is arterial flow in the maggy tebrobasilar artery system. There is normal contrast opacification of the venous sinuses. Basilar art kacy fills mostly from the left side. IMPRESSION: Negative CT angiogram of the brain. Negative CT angiogram of the neck. Normal noncontrast CT scan of the brain.
[2018-07-18 16:02] LABS: Glucose,Whole Blood 52 mg/dL (75-99)
[2018-07-18] MEDS ORDERED: AMPICILLIN-SULBACTAM 3 GM in SODIUM CHLORIDE 0.9% 100 ML IVPB STA (16:04)
[2018-07-18 16:20] LABS: Glucose,Whole Blood 54 mg/dL (75-99)
[2018-07-18] MEDS: SODIUM CHLORIDE 0.9% 1,000 ML IV SCH (16:26)
[2018-07-18] MEDS ORDERED: oxyCODONE-APAP 5-325MG 1 EACH TAB PO PRN (16:53)
[2018-07-18] MEDS ORDERED: NALOXONE 0.4 MG/ML 1 ML VIAL IV PRN (16:53)
[2018-07-18] MEDS ORDERED: ACETAMINOPHEN TAB 325 MG TAB PO PRN (16:53)
[2018-07-18 17:11] LABS: Glucose,Whole Blood 104 mg/dL (75-99)
[2018-07-18 20:08] LABS: Glucose,Whole Blood 211 mg/dL (75-99)
[2018-07-18] MEDS ORDERED: CYCLOBENZAPRINE 10 MG TAB PO PRN (20:50)
[2018-07-18] MEDS ORDERED: ONDANSETRON ODT 8 MG TAB.RAPDIS PO PRN (20:50)
[2018-07-18] MEDS ORDERED: LOPERAMIDE 2 MG CAP PO PRN (20:50)
[2018-07-18] MEDS ORDERED: MECLIZINE 25 MG TAB PO PRN (20:50)
[2018-07-18] MEDS ORDERED: diphenhydrAMINE 25 MG CAP PO PRN (20:50)
[2018-07-18] MEDS ORDERED: Acetaminophen-Codeine 300-30mg TAB PO SCH (21:00)
[2018-07-18] MEDS: GABAPENTIN 300 MG CAP PO SCH (21:05)
[2018-07-18] MEDS: INSULIN ASPART (NovoLOG) 100 UNIT/ML VIAL SQ SCH (21:05)
[2018-07-18] MEDS: hydrOXYzine HCL 25 MG TAB PO PRN (21:10)
[2018-07-18] MEDS: AMPICILLIN-SULBACTAM 3 GM in SODIUM CHLORIDE 0.9% 100 ML IVPB SCH (23:57)
[2018-07-19] MEDS: AMPICILLIN-SULBACTAM 3 GM in SODIUM CHLORIDE 0.9% 100 ML IVPB SCH ×4 (05:40→23:54)
[2018-07-19] MEDS: LEVOTHYROXINE 25 MCG TAB PO SCH (05:41)
[2018-07-19] MEDS: SODIUM CHLORIDE 0.9% 1,000 ML IV SCH ×2 (05:41→17:04)
[2018-07-19 07:04] LABS: Glucose,Whole Blood 294 mg/dL (75-99)
[2018-07-19] MEDS: CHOLECALCIFEROL 1,000 UNIT TAB PO SCH (08:01)
[2018-07-19] MEDS: FLUDROCORTISONE 0.1 MG TAB PO SCH (08:01)
[2018-07-19] MEDS: PANTOPRAZOLE 40 MG TABLET PO SCH (08:01)
[2018-07-19] MEDS: PRAVASTATIN SODIUM 20 MG TAB PO SCH (08:01)
[2018-07-19] MEDS: GABAPENTIN 300 MG CAP PO SCH ×2 (08:01→20:38)
[2018-07-19] MEDS: INSULIN ASPART (NovoLOG) 100 UNIT/ML VIAL SQ SCH ×4 (08:04→20:38)
[2018-07-19] MEDS: ALBUTEROL NEBULIZED 2.5 MG/3 ML INHALATION SCH ×2 (08:59→20:35)
[2018-07-19] MEDS: INSULIN DETEMIR (LEVEMIR) 100 UNIT/ML SYR SQ SCH (10:39)
[2018-07-19 11:39] LABS: Glucose,Whole Blood 260 mg/dL (75-99)
--- NOTE | 2018-07-19 13:34 | P.HPIM ---
History of Present Illness This is a pleasant 24 years old female who was under my care just recently discharged from hospital for DKA and other medical problems including diabetes mellitus, brain tumors, gastroparesis, possible autonomic dysfunction, hypothy roidism and hypertension. Patient presents with swelling in the face mainly on the left side of the forehead over 3 days duration. On examination patient has at least for source which they look and dry on the top of her scalp, resistant tears missing. As per patient mom at bedside this is not trichotillomania. On examination patient has multiple skin soles but with no purulent discharge, some of them is about almost 1 inch in lung dye meters others are smaller. No much surrounding cellulitis or pain or tenderness. She has bilateral posterior auricular lymph node enlargement more on the right side, on the left side actually is improved compared to the last time I saw her. Patient states that she still virgin she does not need test Review of Systems CONSTITUTIONAL: No fever, no malaise, no fatigue. HEENT: No recent visual problems or hearing problems. Denied any sore throat. CARDIOVASCULAR: No orthopnea, PND, no palpitations, no syncope. PULMONARY: No shortness of breath, no cough, no hemoptysis. GASTROINTESTINAL: No diarrhea, no nausea, no vomiting, no abdominal pain. Normoactive bowel sounds. NEUROLOGICAL: No headaches, no weakness, no numbness. HEMATOLOGICAL: Denies any bleeding or petechiae. GENITOURINARY: Denies any burning micturition, frequency, or urgency. MUSCULOSKELETAL/RHEUMATOLOGICAL: Denies any joint pain, swelling, or any muscle pain. ENDOCRINE: Denies any polyuria or polydipsia. Past Medical History Past Medical History: Asthma, Diabetes Mellitus, GERD/Reflux, Syncope, Thyroid Disorder Additional Past Medical History / Comment(s): Pt recently admitted to [facility] on 07/04/18 with DKA. Pineal gland tumor, gastroporesis. History of Any Multi-Drug Resistant Organisms: MRSA Date of last positivie culture/infection: 03/2014 MDRO Source:: GROIN AREA Past Surgical History: Cholecystectomy Past Anesthesia/Blood Transfusion Reactions: No Reported Reaction Past Psychological History: Anxiety, Depression Additional Psychological History / Comment(s): Pt resides with her mother. She is independent. Smoking Status: Never smoker Past Alcohol Use History: None Reported Past Drug Use History: Marijuana Additional Drug Use History / Comment(s): occasional marijuana use for pain mgt - Past Family History Mother History Unknown: Yes Family Medical History: No Reported History Additional Family Medical History / Comment(s): "heart disease" Father Family Medical History: Diabetes Mellitus Additional Family Medical History / Comment(s): Diabetes type II.; Heart disease Medications and Allergies Home Medications Medication Instructions Recorded Confirmed Type Levothyroxine Sodium [Synthroid] 25 mcg PO DAILY 01/03/18 07/18/18 History Albuterol Inhaler [Ventolin Hfa 1 - 2 puff INHALATION RT-BID 02/06/18 07/18/18 History Inhaler] Cholecalciferol (Vitamin D3) 2,000 unit PO DAILY 02/06/18 07/18/18 History [Vitamin D3] Cyclobenzaprine [Flexeril] 10 mg PO BID PRN 02/06/18 07/18/18 History Gabapentin [Neurontin] 300 mg PO BID 02/06/18 07/18/18 History hydrOXYzine HCL [Atarax] 25 mg PO TID PRN 02/06/18 07/18/18 History Ondansetron Odt [Zofran ODT] 8 mg PO Q8HR PRN 05/08/18 07/18/18 History Acetaminophen-Codeine 300-30mg 1 tab PO Q6H PRN 07/18/18 07/18/18 History [Tylenol w/codeine #3] Fludrocortisone Acetate 0.1 mg PO DAILY 07/18/18 07/18/18 History Glucagen Hypo Kit 1 injection SQ DAILY PRN 07/18/18 07/18/18 History Insulin Aspart [NovoLOG] See Protocol SQ QID 07/18/18 07/18/18 History Insulin Glargine,Hum.rec.anlog 10 unit SQ DAILY 07/18/18 07/18/18 History [Basaglar Kwikpen U-100] Loperamide [Imodium] 2 mg PO QID PRN 07/18/18 07/18/18 History Meclizine [Antivert] 25 mg PO BID PRN 07/18/18 07/18/18 History Pantoprazole [Protonix] 40 mg PO DAILY 07/18/18 07/18/18 History Pravastatin Sodium [Pravachol] 20 mg PO DAILY 07/18/18 07/18/18 History diphenhydrAMINE [Benadryl] 25 mg PO QID PRN 07/18/18 07/18/18 History Allergies Allergy/AdvReac Type Severity Reaction Status Date / Time No Known Allergies Allergy Verified 07/18/18 17:51 Physical Exam Vitals: Vital Signs Temp Pulse Pulse Resp BP BP Pulse Ox 07/19/18 12:34 98.7 F 102 H 18 113/73 99 07/19/18 09:10 80 07/19/18 09:02 80 07/19/18 05: 97.8 F 81 18 113/70 100 07/18/18 21:02 98.0 F 88 18 91/55 100 07/18/18 15:49 105 H 20 128/82 98 07/18/18 13:15 98.7 F 114 H 18 103/72 99 Intake and Output 07/18/18 07/19/18 07/19/18 22:59 06:59 14:59 Intake Total 650 240 Balance 650 240 Intake: IV 650 Ampicillin-Sulbactam 3 gm 100 In Sodium Chloride 0.9% 100 ml @ 200 mls/hr IVPB ONCE STA Rx#:[id number] Sodium Chloride 0.9% 1, 550 000 ml @ 100 mls/hr IV . Q10H JAMAL Rx#:[id number] Oral 240 Other: Voiding Method Toilet Toilet Toilet # Voids 1 Weight 52 kg GENERAL: The patient is alert and oriented x3, not in any acute distress. Well developed, well nourished. -HEENT: Pupils are round and equally reacting to light. EOMI. No scleral icterus. No conjunctival pallor. Normocephalic, atraumatic. No pharyngeal erythema. No thyromegaly. 4 sores on the top of her scalp, no surrounding cellulitis, no purulent discharge. The largest one is about 1 inch in diameter, however there are smaller ones. Also patient has enlarged lymph nodes behind her ears, larger on the right with only minimal enlargement on the left CARDIOVASCULAR: S1 and S2 present. No murmurs, rubs, or gallops. PULMONARY: Chest is clear to auscultation, no wheezing or crackles. ABDOMEN: Soft, nontender, nondistended, normoactive bowel sounds. No palpable organomegaly. MUSCULOSKELETAL: No joint swelling or deformity. EXTREMITIES: No cyanosis, clubbing, or pedal edema. NEUROLOGICAL: Gross neurological examination did not reveal any focal deficits. SKIN: No rashes. Results CBC & Chem 7: 07/18/18 14:16 07/18/18 14:16 Labs: Abnormal Lab Results - Last 24 Hours (Table) 07/18/18 07/18/18 07/18/18 Range/Units 14:16 14:16 14:16 WBC 12.6 H (3.8-10.6) k/uL Plt Count 504 H (150-450) k/uL Neutrophils # 7.9 H (1.3-7.7) k/uL Creatinine 0.29 L (0.52-1.04) mg/dL POC Glucose (mg/dL) (75-99) mg/dL Plasma Lactic Acid Ben 2.7 H* (0.7-2.0) mmol/L Calcium 10.4 H (8.4-10.2) mg/dL AST 129 H (14-36) U/L ALT 58 H (9-52) U/L Alkaline Phosphatase 228 H (38-126) U/L Total Protein 8.3 H (6.3-8.2) g/dL Albumin 5.1 H (3.5-5.0) g/dL Urine Protein (Negative) Urine Glucose (UA) (Negative) Ur Leukocyte Esterase (Negative) Urine Mucus (None) /hpf 07/18/18 07/18/18 07/18/18 Range/Units 14:37 15:45 16:16 WBC (3.8-10.6) k/uL Plt Count (150-450) k/uL Neutrophils # (1.3-7.7) k/uL Creatinine (0.52-1.04) mg/dL POC Glucose (mg/dL) 52 L 54 L (75-99) mg/dL Plasma Lactic Acid Ben (0.7-2.0) mmol/L Calcium (8.4-10.2) mg/dL AST (14-36) U/L ALT (9-52) U/L Alkaline Phosphatase (38-126) U/L Total Protein (6.3-8.2) g/dL Albumin (3.5-5.0) g/dL Urine Protein Trace H (Negative) Urine Glucose (UA) 4+ H (Negative) Ur Leukocyte Esterase Moderate H (Negative) Urine Mucus Rare H (None) /hpf 07/18/18 07/18/18 07/19/18 Range/Units 17:09 20:07 07:02 WBC (3.8-10.6) k/uL Plt Count (150-450) k/uL Neutrophils # (1.3-7.7) k/uL Creatinine (0.52-1.04) mg/dL POC Glucose (mg/dL) 104 H 211 H 294 H (75-99) mg/dL Plasma Lactic Acid Ben (0.7-2.0) mmol/L Calcium (8.4-10.2) mg/dL AST (14-36) U/L ALT (9-52) U/L Alkaline Phosphatase (38-126) U/L Total Protein (6.3-8.2) g/dL Albumin (3.5-5.0) g/dL Urine Protein (Negative) Urine Glucose (UA) (Negative) Ur Leukocyte Esterase (Negative) Urine Mucus (None) /hpf 07/19/18 Range/Units 11:35 WBC (3.8-10.6) k/uL Plt Count (150-450) k/uL Neutrophils # (1.3-7.7) k/uL Creatinine (0.52-1.04) mg/dL POC Glucose (mg/dL) 260 H (75-99) mg/dL Plasma Lactic Acid Ben (0.7-2.0) mmol/L Calcium (8.4-10.2) mg/dL AST (14-36) U/L ALT (9-52) U/L Alkaline Phosphatase (38-126) U/L Total Protein (6.3-8.2) g/dL Albumin (3.5-5.0) g/dL Urine Protein (Negative) Urine Glucose (UA) (Negative) Ur Leukocyte Esterase (Negative) Urine Mucus (None) /hpf Microbiology - Last 24 Hours (Table) 07/18/18 14:37 Urine Culture - Preliminary Urine,Clean Catch Thrombosis Risk Factor Assmnt - Choose All That Apply Any of the Below Risk Factors Present?: No Assessment and Plan Assessment: Scalp infection with multiple skin sores Bilateral posterior auricular lymphadenopathy, mostly secondary to above History of diabetes mellitus, difficult to control with recent history of DKA History of nausea vomiting, related to gastroparesis and or autonomic dysfunction History of 2 brain tumors and she follow up with neurologist and development architect as an outpatient History of autonomic dysfunction History of gastroparesis History of hypothyroidism Essential hypertension Plan: This is a pleasant 23 years old female who presents because of scalp infection and bilateral more on the right posterior auricular lymphadenopathy. Patient started on antibiotics. Infectious disease consult is following the case.although the mother thinks it's not trichotillomania, however patient and her mother agrees for psychiatric evaluation for checking Labs and medication were reviewed.. Continue same treatment. Continue with symptomatic treatment. Resume home medication. Monitor lytes and vitals. DVT and GI prophylaxis. Further recommendations of the clinical course of the patient DVT prophylaxis: Subcutaneous Lovenox GI Prophylaxis: Pepcid Prognosis is guarded
--- NOTE | 2018-07-19 13:37 | P.CONS ---
History of Present Illness - Reason for Consult Consult date: 07/19/18 - Chief Complaint swelling - History of Present Illness 23-year-old female who has multiple medical troubles and is followed by local neurology for her intracranial tumors. The patient has difficulty with pick granuloma on her scalp that is slightly improved from the last evaluation. She does have some stable unchanging lymphadenopathy throughout the neck that has had prior evaluation. Imaging studies do not reveal evidence of any significant change in this. Patient does not recall any significant new changes but had a sudden onset of swelling to the forehead as well as to the left temporal area. It was very uncomfortable and because of the headache she presented hospital for further evaluation. The mother was concerned that with the intracranial tumors that maybe she was developing hydrocephalus and this was causing the swelling to the head. The patient herself relates that she had some headache and this is improving. The swelling was uncomfortable. 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 Was not having those at home. Denies other acute interval difficulties. Continues to have difficulties with picking at her scalp although with a topical anti-inflammatory this is had some improvement. There are some pick injuries to the left arm no other areas Review of Systems HEENT:as noted admission she did have headache but denied visual changes Denies sinus or mouth discomforts. Denies neck stiffness or pain. Denies significant oral cavity pain. Denies difficulty on swallowing. Lungs: Denies significant shortness of breath, cough, sputum production, or hemoptysis. Cardiovascular: Denies significant shortness of breath, chest pain, chest wall pain, orthopnea, dyspnea on exertion, syncope Gastrointestinal:Denies nausea, vomiting, diarrhea, constipation, hematemesis, melena, hematochezia. No no significant change of bowel habit noticed. Musculoskeletal: denies significant myalgias or arthralgias. No new joint swelling. Denies new back pain. Skin: chronic skin lesions on scalp Neuro: headache without visual change. Denies any new onset weakness or difficulty with ambulation. Denies falls or seizures. Psychiatric Panic anxiety Endocrine: Denies significant fatigue, denies significant weight loss or weight gain. Past Medical History Past Medical History: Asthma, Diabetes Mellitus, GERD/Reflux, Syncope, Thyroid Disorder Additional Past Medical History / Comment(s): Pt recently admitted to [facility] on 07/04/18 with DKA. Pineal gland tumor, gastroporesis. History of Any Multi-Drug Resistant Organisms: MRSA Year Discovered:: 03/2014 MDRO Source:: GROIN AREA Past Surgical History: Cholecystectomy Past Anesthesia/Blood Transfusion Reactions: No Reported Reaction Past Psychological History: Anxiety, Depression Additional Psychological History / Comment(s): Pt resides with her mother. She is independent. has difficulties with recurrent diabetic ketoacidosis. No animals in the home. No experience. No international travel Smoking Status: Never smoker Past Alcohol Use History: None Reported Past Drug Use History: Marijuana Additional Drug Use History / Comment(s): occasional marijuana use for pain mgt - Past Family History Mother History Unknown: Yes Family Medical History: No Reported History Additional Family Medical History / Comment(s): "heart disease" Father Family Medical History: Diabetes Mellitus Additional Family Medical History / Comment(s): Diabetes type II.; Heart disease Medications and Allergies Home Medications and Allergies Comment(s): Current Medications Acetaminophen (Tylenol Tab) 650 mg PO Q6HR PRN PRN Reason: Mild Pain or Fever > 100.5 Acetaminophen/Codeine Phosphate (Tylenol #3) 1 each PO Q4HR PRN PRN Reason: Moderate Pain Albuterol Sulfate (Ventolin Nebulized) 2.5 mg INHALATION RT-BID [facility] Last Admin: 07/19/18 08:59 Dose: 2.5 mg Documented by: Cholecalciferol (Vitamin D3 (25 Mcg = 1000 Iu)) 2,000 unit PO DAILY [facility] Last Admin: 07/19/18 08:01 Dose: 2,000 unit Documented by: Cyclobenzaprine HCl (Flexeril) 10 mg PO BID PRN PRN Reason: muscle spasms Diphenhydramine HCl (Benadryl) 25 mg PO QID PRN PRN Reason: Itching Fludrocortisone Acetate (Florinef) 0.1 mg PO DAILY [facility] Last Admin: 07/19/18 08:01 Dose: 0.1 mg Documented by: Gabapentin (Neurontin) 300 mg PO BID [facility] Last Admin: 07/19/18 08:01 Dose: 300 mg Documented by: Hydroxyzine HCl (Atarax) 25 mg PO TID PRN PRN Reason: Anxiety Last Admin: 07/18/18 21:10 Dose: 25 mg Documented by: Sodium Chloride (Saline 0.9%) 1,000 mls @ 100 mls/hr IV .Q10H [facility] Last Admin: 07/19/18 05:41 Dose: 100 mls/hr Documented by: Ampicillin Sodium/Sulbactam (Sodium 3 gm/ Sodium Chloride) 100 mls @ 200 mls/hr IVPB Q6HR [facility] Last Admin: 07/19/18 11:28 Dose: 200 mls/hr Documented by: Insulin Aspart (Novolog) 0 unit SQ ACHS [facility]; Protocol Last Admin: 07/19/18 12:52 Dose: 4 unit Documented by: Insulin Detemir (Levemir) 10 unit SQ DAILY [facility] Last Admin: 07/19/18 10:39 Dose: 10 unit Documented by: Levothyroxine Sodium (Synthroid) 25 mcg PO DAILY@0630 [facility] Last Admin: 07/19/18 05:41 Dose: 25 mcg Documented by: Loperamide HCl (Imodium) 2 mg PO QID PRN PRN Reason: Diarrhea Meclizine HCl (Antivert) 25 mg PO BID PRN PRN Reason: dizziness Naloxone HCl (Narcan) 0.2 mg IV Q2M PRN PRN Reason: Opioid Reversal Ondansetron HCl (Zofran) 4 mg IVP Q8HR PRN PRN Reason: Nausea And Vomiting Ondansetron HCl (Zofran Odt) 8 mg PO Q8HR PRN PRN Reason: Nausea Oxycodone/Acetaminophen (Percocet 5-325) 1 each PO Q4HR PRN PRN Reason: Severe Pain Pantoprazole Sodium (Protonix) 40 mg PO AC-BRKFST [facility] Last Admin: 07/19/18 08:01 Dose: 40 mg Documented by: Pravastatin Sodium (Pravachol) 20 mg PO DAILY [facility] Last Admin: 07/19/18 08:01 Dose: 20 mg Documented by: Home Medications Medication Instructions Recorded Confirmed Type Levothyroxine Sodium [Synthroid] 25 mcg PO DAILY 01/03/18 07/18/18 History Albuterol Inhaler [Ventolin Hfa 1 - 2 puff INHALATION RT-BID 02/06/18 07/18/18 History Inhaler] Cholecalciferol (Vitamin D3) 2,000 unit PO DAILY 02/06/18 07/18/18 History [Vitamin D3] Cyclobenzaprine [Flexeril] 10 mg PO BID PRN 02/06/18 07/18/18 History Gabapentin [Neurontin] 300 mg PO BID 02/06/18 07/18/18 History hydrOXYzine HCL [Atarax] 25 mg PO TID PRN 02/06/18 07/18/18 History Ondansetron Odt [Zofran ODT] 8 mg PO Q8HR PRN 05/08/18 07/18/18 History Acetaminophen-Codeine 300-30mg 1 tab PO Q6H PRN 07/18/18 07/18/18 History [Tylenol w/codeine #3] Fludrocortisone Acetate 0.1 mg PO DAILY 07/18/18 07/18/18 History Glucagen Hypo Kit 1 injection SQ DAILY PRN 07/18/18 07/18/18 History Insulin Aspart [NovoLOG] See Protocol SQ QID 07/18/18 07/18/18 History Insulin Glargine,Hum.rec.anlog 10 unit SQ DAILY 07/18/18 07/18/18 History [Basaglar Kwikpen U-100] Loperamide [Imodium] 2 mg PO QID PRN 07/18/18 07/18/18 History Meclizine [Antivert] 25 mg PO BID PRN 07/18/18 07/18/18 History Pantoprazole [Protonix] 40 mg PO DAILY 07/18/18 07/18/18 History Pravastatin Sodium [Pravachol] 20 mg PO DAILY 07/18/18 07/18/18 History diphenhydrAMINE [Benadryl] 25 mg PO QID PRN 07/18/18 07/18/18 History Allergies Allergy/AdvReac Type Severity Reaction Status Date / Time No Known Allergies Allergy Verified 07/18/18 17:51 Physical Exam Vitals: Vital Signs Temp Pulse Pulse Resp BP BP Pulse Ox 07/19/18 12:34 98.7 F 102 H 18 113/73 99 07/19/18 09:10 80 07/19/18 09:02 80 07/19/18 05:19 97.8 F 81 18 113/70 100 07/18/18 21:02 98.0 F 88 18 91/55 100 07/18/18 15:49 105 H 20 128/82 98 Intake and Output 07/18/18 07/19/18 07/19/18 22:59 06:59 14:59 Intake Total 650 240 Balance 650 240 Intake: IV 650 Ampicillin-Sulbactam 3 gm 100 In Sodium Chloride 0.9% 100 ml @ 200 mls/hr IVPB ONCE STA Rx#:[id number] Sodium Chloride 0.9% 1, 550 000 ml @ 100 mls/hr IV . Q10H [facility] Rx#:[id number] Oral 240 Other: Voiding Method Toilet Toilet Toilet # Voids 1 Weight 52 kg 23-year-old female in no distress HEENT: Anicteric conjunctiva are pink and moist nasal mucosa grossly intact without significant lesions, there is no thrush. Neck: The neck is supple without significant lymphadenopathy or thyromegaly. Lungs: Good bilateral air entry without significant crackles or wheezing. There is no significant bronchial sounds. There is no egophony or dullness. Heart: Regular rate and rhythm with an audible S1-S2, no S3 no S4. There is no significant murmur click or rub, PMI was nondisplaced. Abdomen: Positive bowel sounds soft and nontender without palpable masses or organomegaly. There was no guarding or rebound. Extremities: The upper extremities have excellent pulses they are symmetric, no significant petechiae or telangiectasia. No splinter hemorrhages were noted. evidence of 2 small areas of granulation onto the left lateral arm. The lower extremities are free from significant edema. The peripheral pulses were 2+ and symmetric. Neuro: Awake alert oriented to person place and time. There are no acute new gross focal sensory motor deficits. SKIN: patient has evidence of the extensive ulceration on her scalp, from pick is not appear to be grossly infected Results CBC & Chem 7: 07/18/18 14:16 07/18/18 14:16 Labs: Abnormal Lab Results - Last 24 Hours (Table) 07/18/18 07/18/18 07/18/18 Range/Units 14:16 14:16 14:16 WBC 12.6 H (3.8-10.6) k/uL Plt Count 504 H (150-450) k/uL Neutrophils # 7.9 H (1.3-7.7) k/uL Creatinine 0.29 L (0.52-1.04) mg/dL POC Glucose (mg/dL) (75-99) mg/dL Plasma Lactic Acid Ben 2.7 H* (0.7-2.0) mmol/L Calcium 10.4 H (8.4-10.2) mg/dL AST 129 H (14-36) U/L ALT 58 H (9-52) U/L Alkaline Phosphatase 228 H (38-126) U/L Total Protein 8.3 H (6.3-8.2) g/dL Albumin 5.1 H (3.5-5.0) g/dL Urine Protein (Negative) Urine Glucose (UA) (Negative) Ur Leukocyte Esterase (Negative) Urine Mucus (None) /hpf 07/18/18 07/18/18 07/18/18 Range/Units 14:37 15:45 16:16 WBC (3.8-10.6) k/uL Plt Count (150-450) k/uL Neutrophils # (1.3-7.7) k/uL Creatinine (0.52-1.04) mg/dL POC Glucose (mg/dL) 52 L 54 L (75-99) mg/dL Plasma Lactic Acid Ben (0.7-2.0) mmol/L Calcium (8.4-10.2) mg/dL AST (14-36) U/L ALT (9-52) U/L Alkaline Phosphatase (38-126) U/L Total Protein (6.3-8.2) g/dL Albumin (3.5-5.0) g/dL Urine Protein Trace H (Negative) Urine Glucose (UA) 4+ H (Negative) Ur Leukocyte Esterase Moderate H (Negative) Urine Mucus Rare H (None) /hpf 07/18/18 07/18/18 07/19/18 Range/Units 17:09 20:07 07:02 WBC (3.8-10.6) k/uL Plt Count (150-450) k/uL Neutrophils # (1.3-7.7) k/uL Creatinine (0.52-1.04) mg/dL POC Glucose (mg/dL) 104 H 211 H 294 H (75-99) mg/dL Plasma Lactic Acid Ben (0.7-2.0) mmol/L Calcium (8.4-10.2) mg/dL AST (14-36) U/L ALT (9-52) U/L Alkaline Phosphatase (38-126) U/L Total Protein (6.3-8.2) g/dL Albumin (3.5-5.0) g/dL Urine Protein (Negative) Urine Glucose (UA) (Negative) Ur Leukocyte Esterase (Negative) Urine Mucus (None) /hpf 07/19/18 Range/Units 11:35 WBC (3.8-10.6) k/uL Plt Count (150-450) k/uL Neutrophils # (1.3-7.7) k/uL Creatinine (0.52-1.04) mg/dL POC Glucose (mg/dL) 260 H (75-99) mg/dL Plasma Lactic Acid Ben (0.7-2.0) mmol/L Calcium (8.4-10.2) mg/dL AST (14-36) U/L ALT (9-52) U/L Alkaline Phosphatase (38-126) U/L Total Protein (6.3-8.2) g/dL Albumin (3.5-5.0) g/dL Urine Protein (Negative) Urine Glucose (UA) (Negative) Ur Leukocyte Esterase (Negative) Urine Mucus (None) /hpf Microbiology - Last 24 Hours (Table) 07/18/18 14:37 Urine Culture - Preliminary Urine,Clean Catch Laboratory Results WBC 12.6 k/uL (3.8-10.6) H 07/18/18 14:16 RBC 5.12 m/uL (3.80-5.40) 07/18/18 14:16 Hgb 14.1 gm/dL (11.4-16.0) 07/18/18 14:16 Hct 44.3 % (34.0-46.0) 07/18/18 14:16 MCV 86.6 fL (80.0-100.0) 07/18/18 14:16 MCH 27.6 pg (25.0-35.0) 07/18/18 14:16 MCHC 31.8 g/dL (31.0-37.0) 07/18/18 14:16 RDW 14.2 % (11.5-15.5) 07/18/18 14:16 Plt Count 504 k/uL (150-450) H 07/18/18 14:16 Neutrophils % 62 % 07/18/18 14:16 Lymphocytes % 29 % 07/18/18 14:16 Monocytes % 4 % 07/18/18 14:16 Eosinophils % 2 % 07/18/18 14:16 Basophils % 1 % 07/18/18 14:16 Neutrophils # 7.9 k/uL (1.3-7.7) H 07/18/18 14:16 Lymphocytes # 3.7 k/uL (1.0-4.8) 07/18/18 14:16 Monocytes # 0.5 k/uL (0-1.0) 07/18/18 14:16 Eosinophils # 0.3 k/uL (0-0.7) 07/18/18 14:16 Basophils # 0.1 k/uL (0-0.2) 07/18/18 14:16 PT 9.3 sec (9.0-12.0) 07/18/18 14:16 INR 0.8 (<1.2) 07/18/18 14:16 APTT 22.3 sec (22.0-30.0) 07/18/18 14:16 Sodium 142 mmol/L (137-145) 07/18/18 14:16 Potassium 4.2 mmol/L (3.5-5.1) 07/18/18 14:16 Chloride 99 mmol/L (98-107) 07/18/18 14:16 Carbon Dioxide 30 mmol/L (22-30) 07/18/18 14:16 Anion Gap 13 mmol/L 07/18/18 14:16 BUN 10 mg/dL (7-17) 07/18/18 14:16 Creatinine 0.29 mg/dL (0.52-1.04) L 07/18/18 14:16 Est GFR (CKD-EPI)AfAm >90 (>60 ml/min/1.73 sqM) 07/18/18 14:16 Est GFR (CKD-EPI)NonAf >90 (>60 ml/min/1.73 sqM) 07/18/18 14:16 Glucose 89 mg/dL (74-99) 07/18/18 14:16 POC Glucose (mg/dL) 260 mg/dL (75-99) H 07/19/18 11:35 POC Glu English Tutor ID Naatly Harkins 07/19/18 11:35 Lactic Ac Sepsis Rflx Y 07/18/18 14:37 Plasma Lactic Acid Ben 1.2 mmol/L (0.7-2.0) 07/18/18 18:19 Calcium 10.4 mg/dL (8.4-10.2) H 07/18/18 14:16 Total Bilirubin 0.5 mg/dL (0.2-1.3) 07/18/18 14:16 AST 129 U/L (14-36) H 07/18/18 14:16 ALT 58 U/L (9-52) H 07/18/18 14:16 Alkaline Phosphatase 228 U/L (38-126) H 07/18/18 14:16 Total Protein 8.3 g/dL (6.3-8.2) H 07/18/18 14:16 Albumin 5.1 g/dL (3.5-5.0) H 07/18/18 14:16 Urine Color Yellow 07/18/18 14:37 Urine Appearance Clear (Clear) 07/18/18 14:37 Urine pH 7.0 (5.0-8.0) 07/18/18 14:37 Ur Specific [place] 1.024 (1.001-1.035) 07/18/18 14:37 Urine Protein Trace (Negative) H 07/18/18 14:37 Urine Glucose (UA) 4+ (Negative) H 07/18/18 14:37 Urine Ketones Negative (Negative) 07/18/18 14:37 Urine Blood Negative (Negative) 07/18/18 14:37 Urine Nitrite Negative (Negative) 07/18/18 14:37 Urine Bilirubin Negative (Negative) 07/18/18 14:37 Urine Urobilinogen <2.0 mg/dL (<2.0) 07/18/18 14:37 Ur Leukocyte Esterase Moderate (Negative) H 07/18/18 14:37 Urine WBC 4 /hpf (0-5) 07/18/18 14:37 Ur Squamous Epith Cells 3 /hpf (0-4) 07/18/18 14:37 Urine Mucus Rare /hpf (None) H 07/18/18 14:37 Acetone, Qual Negative (Negative) 07/18/18 14:16 Microbiology 07/18/18 14:37 Urine,Clean Catch Urine Culture - Preliminary Assessment and Plan (1) Superficial swelling of scalp Current Visit: Yes Status: Acute Code(s): R22.0 - LOCALIZED SWELLING, MASS AND LUMP, HEAD SNOMED Code(s): 598433166 (2) 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 She was placed in a new recent medications. Has been no change of her diet. Has been no other new exposures to any new chemicals. It is noted she's had no recent travel and no large or exposures. The patient does follow with neurology for her multiple difficulties and unclear if there have been any significant changes of her regiment as of late. Is noted mother was concerned about the possibility of hydrocephalushis CT has been performed. No evidence of any vascular abnormalities, vascular no deformities, aneurysm or hydrocephalus. The swelling is rapidly decreasing with local care, Benadryl and monitoring. Etiology is not clear but localized ALLERGIC reaction is of some concern given the response to Benadryl. The chronic pick granuloma of the scalp is without significant change since the last evaluation. Lymphadenopathy is without change. Topical anti-inflammatory is applied to help. Continue to follow with her team to try to improve her overall status. Current Visit: Yes Status: Acute Code(s): L92.9 - GRANULOMATOUS DISORDER OF THE SKIN, SUBCU, UNSP SNOMED Code(s): 323837690
[2018-07-19] MEDS: TRIAMCINOLONE 0.1% CREAM 80 GM TUBE TOPICAL SCH ×2 (15:32→21:36)
[2018-07-19 17:15] LABS: Glucose,Whole Blood 110 mg/dL (75-99)
[2018-07-19] MEDS ORDERED: SCOPOLAMINE 1.5MG/72HR PATCH TRANSDERM SCH (18:00)
[2018-07-19 20:15] LABS: Glucose,Whole Blood 204 mg/dL (75-99)
[2018-07-20] MEDS: AMPICILLIN-SULBACTAM 3 GM in SODIUM CHLORIDE 0.9% 100 ML IVPB SCH ×4 (05:45→23:10)
[2018-07-20] MEDS: LEVOTHYROXINE 25 MCG TAB PO SCH (05:45)
[2018-07-20 07:01] LABS: Glucose,Whole Blood 346 mg/dL (75-99)
[2018-07-20] MEDS: ALBUTEROL NEBULIZED 2.5 MG/3 ML INHALATION SCH ×2 (08:05→19:44)
[2018-07-20 08:06] LABS: HCT 37.2 % (34.0-46.0); HGB 11.4 gm/dL (11.4-16.0); MCH 27.5 pg (25.0-35.0); MCHC 30.7 g/dL (31.0-37.0); MCV 89.7 fL (80.0-100.0); RBC 4.15 m/uL (3.80-5.40); RDW 14.3 % (11.5-15.5); WBC 7.5 k/uL (3.8-10.6)
[2018-07-20 08:07] LABS: Basophils # (A) 0.1 k/uL (0-0.2); Basophils % (A) 1 %; Eosinophils # (A) 0.2 k/uL (0-0.7); Eosinophils % (A) 3 %; Hypochromasia Moderate; Lymphocytes # (A) 2.8 k/uL (1.0-4.8); Lymphocytes % (A) 38 %; Mean Platelet Volume 6.6; Monocytes # (A) 0.3 k/uL (0-1.0); Monocytes % (A) 3 %; Neutrophils % (A) 54 %; Platelet Count 421 k/uL (150-450)
[2018-07-20] MEDS: ONDANSETRON 4 MG/2 ML VIAL IVP PRN ×2 (08:14→15:54)
[2018-07-20] MEDS: PRAVASTATIN SODIUM 20 MG TAB PO SCH (08:15)
[2018-07-20] MEDS: CHOLECALCIFEROL 1,000 UNIT TAB PO SCH (08:15)
[2018-07-20] MEDS: PANTOPRAZOLE 40 MG TABLET PO SCH (08:15)
[2018-07-20] MEDS: ENOXAPARIN 40 MG/0.4 ML SYRINGE SQ SCH ×2 (08:15→08:26)
[2018-07-20] MEDS: INSULIN DETEMIR (LEVEMIR) 100 UNIT/ML SYR SQ SCH (08:15)
[2018-07-20] MEDS: GABAPENTIN 300 MG CAP PO SCH ×2 (08:15→20:12)
[2018-07-20] MEDS: FLUDROCORTISONE 0.1 MG TAB PO SCH (08:16)
[2018-07-20 08:18] LABS: ALT 83 U/L (9-52); AST 135 U/L (14-36); Albumin 3.7 g/dL (3.5-5.0); Alkaline Phosphatase 281 U/L (38-126); Anion Gap 7 mmol/L; Bilirubin, Delta 0.2 mg/dL (0.0-0.2); Blood Urea Nitrogen 13 mg/dL (7-17); Calcium 8.9 mg/dL (8.4-10.2); Carbon Dioxide 32 mmol/L (22-30); Chloride 99 mmol/L (98-107); Glucose 379 mg/dL (74-99); Sodium 138 mmol/L (137-145); Total Bilirubin 0.2 mg/dL (0.2-1.3); Total Protein 6.1 g/dL (6.3-8.2)
[2018-07-20] MEDS: INSULIN ASPART (NovoLOG) 100 UNIT/ML VIAL SQ SCH ×4 (08:22→20:19)
[2018-07-20] MEDS: TRIAMCINOLONE 0.1% CREAM 80 GM TUBE TOPICAL SCH ×3 (08:23→21:47)
[2018-07-20 10:42] VITALS: BMI 19.1
[2018-07-20 11:47] LABS: Glucose,Whole Blood 155 mg/dL (75-99)
[2018-07-20 12:27] LABS: Hemoglobin A1C 10.5 % (4.0-6.0)
--- NOTE | 2018-07-20 15:08 | P.CN ---
Psychiatric Consult - . Consult date: 07/20/18 Consult:: 07/20/18 14:59 pulling hair Assessment and Plan Assessment: This is a pleasant 24 years old female who was recently consult on her prior hospitalization just recently discharged from hospital for DKA and other medical problems including diabetes mellitus, brain tumors, gastroparesis, possible autonomic dysfunction, hypothyroidism and hypertension. Patient presents with swelling in the face mainly on the left side of the forehead over 3 days duration. On examination patient has at least for source which they look and dry on the top of her scalp, resistant tears missing. As per patient mom at bedside this is not trichotillomania. She was found in bed with another woman sleep with her and had to wake them up. Past Medical History Past Medical History: Asthma, Diabetes Mellitus, GERD/Reflux, Syncope, Thyroid Disorder Additional Past Medical History / Comment(s): Pt recently admitted to [facility] on 07/04/18 with DKA. Pineal gland tumor, gastroporesis. History of Any Multi-Drug Resistant Organisms: MRSA Date of last positivie culture/infection: 03/2014 MDRO Source:: GROIN AREA Past Surgical History: Cholecystectomy Past Anesthesia/Blood Transfusion Reactions: No Reported Reaction Past Psychological History: Anxiety, Depression Additional Psychological History / Comment(s): Pt resides with her mother. She is independent. Smoking Status: Never smoker Past Alcohol Use History: None Reported Past Drug Use History: Marijuana Additional Drug Use History / Comment(s): occasional marijuana use for pain mgt - Past Family History Mother History Unknown: Yes Family Medical History: No Reported History Additional Family Medical History / Comment(s): "heart disease" Father Family Medical History: Diabetes Mellitus Additional Family Medical History / Comment(s): Diabetes type II.; Heart disease Medications and Allergies Home Medications Medication Instructions Recorded Confirmed Type Levothyroxine Sodium [Synthroid] 25 mcg PO DAILY 01/03/18 07/18/18 History Albuterol Inhaler [Ventolin Hfa 1 - 2 puff INHALATION RT-BID 02/06/18 07/18/18 History Inhaler] Cholecalciferol (Vitamin D3) 2,000 unit PO DAILY 02/06/18 07/18/18 History [Vitamin D3] Cyclobenzaprine [Flexeril] 10 mg PO BID PRN 02/06/18 07/18/18 History Gabapentin [Neurontin] 300 mg PO BID 02/06/18 07/18/18 History hydrOXYzine HCL [Atarax] 25 mg PO TID PRN 02/06/18 07/18/18 History Ondansetron Odt [Zofran ODT] 8 mg PO Q8HR PRN 05/08/18 07/18/18 History Acetaminophen-Codeine 300-30mg 1 tab PO Q6H PRN 07/18/18 07/18/18 History [Tylenol w/codeine #3] Fludrocortisone Acetate 0.1 mg PO DAILY 07/18/18 07/18/18 History Glucagen Hypo Kit 1 injection SQ DAILY PRN 07/18/18 07/18/18 History Insulin Aspart [NovoLOG] See Protocol SQ QID 07/18/18 07/18/18 History Insulin Glargine,Hum.rec.anlog 10 unit SQ DAILY 07/18/18 07/18/18 History [Basaglar Kwikpen U-100] Loperamide [Imodium] 2 mg PO QID PRN 07/18/18 07/18/18 History Meclizine [Antivert] 25 mg PO BID PRN 07/18/18 07/18/18 History Pantoprazole [Protonix] 40 mg PO DAILY 07/18/18 07/18/18 History Pravastatin Sodium [Pravachol] 20 mg PO DAILY 07/18/18 07/18/18 History diphenhydrAMINE [Benadryl] 25 mg PO QID PRN 07/18/18 07/18/18 History Allergies Allergy/AdvReac Type Severity Reaction Status Date / Time No Known Allergies Allergy Verified 07/18/18 17:51 Mental status examination: This is a 23-year-old female who was asked to be seen because he thought she had an eating disorder when in actuality she has a little diabetic condition which is sometimes confused with eating disorder. However his side that the mental status examination and did reveal she has anxiety with underlying depression. This is a 23-year-old cachectic-looking, female who looks younger than her stated age. Speech and language are spontaneous. Attitude and behavior is cooperative. Orientation is to person place time and situation. Affect is reactive and less constricted . Thought content within normal. Risk factors she denies suicidal or homicidal ideation. Perception within normal denies hallucinations auditory visual or tactile. Thought processes goal oriented. Recent memory and remote memory within normal. 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 Judgment is good and insight is good. Psychiatric impression:adjustment disorder with anxiety more likely due to the chronic illness of type 1 diabetes and difficulty with stabilizing insulin and eating due to gastroparesis. Psychiatric recommendation: she would benefit from outpatient psychotherapy to help her deal with the chronic issues of illness.She is not a candidate for [address] [place] [address].use of Atarax would also help her anxiety and decrease itching she has on her scalp Thank you for the consult Shekhar Odell D.O. PhD (1) Adjustment disorder with anxiety Current Visit: Yes Status: Acute Priority: Low Code(s): F43.22 - ADJUSTMENT DISORDER WITH ANXIETY SNOMED Code(s): 85606453 Time with Patient: Less than 30
[2018-07-20 17:10] LABS: Glucose,Whole Blood 118 mg/dL (75-99)
--- NOTE | 2018-07-20 19:41 | P.PN ---
Subjective This is a pleasant 24 years old female who was under my care just recently discharged from hospital for DKA and other medical problems including diabetes mellitus, brain tumors, gastroparesis, possible autonomic dysfunction, hypothyroidism and hypertension. Patient presents with swelling in the face mainly on the left side of the forehead over 3 days duration. On examination patient has at least for source which they look and dry on the top of her scalp, resistant tears missing. As per patient mom at bedside this is not trichotillomania. On examination patient has multiple skin soles but with no purulent discharge, some of them is about almost 1 inch in lung dye meters others are smaller. No much surrounding cellulitis or pain or tenderness. She has bilateral posterior auricular lymph node enlargement more on the right side, on the left side actually is improved compared to the last time I saw her. Patient states that she still virgin she does not need test 07/20/18 pt sysmptoms of head sores is improving with topical steroids, psych follow up is appreciated and found to have adjustment disorder due to her diabetes illness being uncontrolled . leukocytosis improved ,lactic acid is back to normal , pt Liver enz mildly elevated , hepaitis panel was checked last month and was negative, we will do liver US. pt has no nausea or vomiting now , she is on scolopamine patch upon her request . her face/forehead swelling has resolved , she not sure if she is allregic to anything and states she did not take any new medication of food. Review of Systems CONSTITUTIONAL: No fever, no malaise, no fatigue. HEENT: No recent visual problems or hearing problems. Denied any sore throat. CARDIOVASCULAR: No orthopnea, PND, no palpitations, no syncope. PULMONARY: No shortness of breath, no cough, no hemoptysis. GASTROINTESTINAL: No diarrhea, no nausea, no vomiting, no abdominal pain. Norm oactive bowel sounds. NEUROLOGICAL: No headaches, no weakness, no numbness. HEMATOLOGICAL: Denies any bleeding or petechiae. GENITOURINARY: Denies any burning micturition, frequency, or urgency. MUSCULOSKELETAL/RHEUMATOLOGICAL: Denies any joint pain, swelling, or any muscle pain. ENDOCRINE: Denies any polyuria or polydipsia. Objective - Vital Signs Vital signs: Vital Signs Temp 98.4 F 07/20/18 13:00 Pulse 107 H 07/20/18 13:00 Resp 17 07/20/18 13:00 BP 147/93 07/20/18 13:00 Pulse Ox 98 07/20/18 13:00 Intake & Output 07/20/18 07/20/18 07/21/18 06:59 18:59 06:59 Intake Total 300 590 Balance 300 590 Weight 52 kg Intake: Oral 300 590 Other: Voiding Method Toilet # Voids 2 3 - Exam GENERAL: The patient is alert and oriented x3, not in any acute distress. Well developed, well nourished. -HEENT: Pupils are round and equally reacting to light. EOMI. No scleral icterus. No conjunctival pallor. Normocephalic, atraumatic. No pharyngeal erythema. No thyromegaly. 4 sores on the top of her scalp, no surrounding cellulitis, no purulent discharge. The largest one is about 1 inch in diameter, however there are smaller ones. Also patient has enlarged lymph nodes behind her ears, larger on the right with only minimal enlargement on the left CARDIOVASCULAR: S1 and S2 present. No murmurs, rubs, or gallops. PULMONARY: Chest is clear to auscultation, no wheezing or crackles. ABDOMEN: Soft, nontender, nondistended, normoactive bowel sounds. No palpable organomegaly. MUSCULOSKELETAL: No joint swelling or deformity. EXTREMITIES: No cyanosis, clubbing, or pedal edema. NEUROLOGICAL: Gross neurological examination did not reveal any focal deficits. SKIN: No rashes. - Labs CBC & Chem 7: 07/20/18 07:20 07/20/18 07:20 Labs: Abnormal Lab Results - Last 24 Hours (Table) 07/18/18 07/19/18 07/20/18 Range/Units 14:16 20:13 06:59 MCHC (31.0-37.0) g/dL Carbon Dioxide (22-30) mmol/L Creatinine (0.52-1.04) mg/dL Glucose (74-99) mg/dL POC Glucose (mg/dL) 204 H 346 H (75-99) mg/dL Hemoglobin A1c 10.5 H (4.0-6.0) % AST (14-36) U/L ALT (9-52) U/L Alkaline Phosphatase (38-126) U/L Total Protein (6.3-8.2) g/dL 07/20/18 07/20/18 07/20/18 Range/Units 07:20 07:20 11:45 MCHC 30.7 L (31.0-37.0) g/dL Carbon Dioxide 32 H (22-30) mmol/L Creatinine 0.33 L (0.52-1.04) mg/dL Glucose 379 H (74-99) mg/dL POC Glucose (mg/dL) 155 H (75-99) mg/dL Hemoglobin A1c (4.0-6.0) % AST 135 H (14-36) U/L ALT 83 H (9-52) U/L Alkaline Phosphatase 281 H (38-126) U/L Total Protein 6.1 L (6.3-8.2) g/dL 07/20/18 Range/Units 17:08 MCHC (31.0-37.0) g/dL Carbon Dioxide (22-30) mmol/L Creatinine (0.52-1.04) mg/dL Glucose (74-99) mg/dL POC Glucose (mg/dL) 118 H (75-99) mg/dL Hemoglobin A1c (4.0-6.0) % AST (14-36) U/L ALT (9-52) U/L Alkaline Phosphatase (38-126) U/L Total Protein (6.3-8.2) g/dL Microbiology - Last 24 Hours (Table) 07/18/18 14:16 Blood Culture - Preliminary Blood No Growth after 48 hours 07/18/18 14:37 Urine Culture - Final Urine,Clean Catch Assessment and Plan Assessment: Scalp infection with multiple skin sores Bilateral posterior auricular lymphadenopathy, mostly secondary to above adjustment disorder with anxiety more likely due to the chronic illness of type 1 diabetes and difficulty with stabilizing insulin and eating due to gastroparesis. 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 Patient started on antibiotics. Infectious disease consult is following the case.although the mother thinks it's not trichotillomania, however patient and her mother agrees for psychiatric evaluation for checking Labs and medication were reviewed.. Continue same treatment. Continue with symptomatic treatment. Resume home medication. Monitor lytes and vitals. DVT and GI prophylaxis. Further recommendations of the clinical course of the patient DVT prophylaxis: Subcutaneous Lovenox GI Prophylaxis: Pepcid Prognosis is guarded
[2018-07-20 20:02] LABS: Glucose,Whole Blood 83 mg/dL (75-99)
--- NOTE | 2018-07-20 22:17 | P.PN ---
Subjective Progress Note Date: 07/20/18 23-year-old female who has multiple medical troubles and is followed by local neurology for her intracranial tumors. The patient has difficulty with pick granuloma on her scalp that is slightly improved from the last evaluation. She does have some stable unchanging lymphadenopathy throughout the neck that has had prior evaluation. Imaging studies do not reveal evidence of any significant change in this. Patient does not recall any significant new changes but had a sudden onset of swelling to the forehead as well as to the left temporal area. It was very uncomfortable and because of the headache she presented hospital for further evaluation. The mother was concerned that with the intracranial tumors that maybe she was developing hydrocephalus and this was causing the swelling to the head. The patient herself relates that she had some headache and this is improving. The swelling was uncomfortable. 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 Was not having those at home. Denies other acute interval difficulties. Continues to have difficulties with picking at her scalp although with a topical anti-inflammatory this is had some improvement. There are some pick injuries to the left arm no other areas 07/20/2018 patient without acute complaints today. Is feeling better. Blood sugars are improving. Swelling to the face improved Objective - Vital Signs Vital signs: Vital Signs Temp 97.3 F L 07/20/18 20:38 Pulse 105 H 07/20/18 20:38 Resp 18 07/20/18 20:38 BP 118/74 07/20/18 20:38 Pulse Ox 100 07/20/18 20:38 Intake & Output 07/20/18 07/20/18 07/21/18 06:59 18:59 06:59 Intake Total 300 590 100 Balance 300 590 100 Weight 52 kg Intake: Intake, IV Titration 100 Amount Ampicillin-Sulbactam 3 gm 100 In Sodium Chloride 0.9% 100 ml @ 200 mls/hr IVPB Q6HR [facility] Rx#:[id number] Oral 300 590 Other: Voiding Method Toilet # Voids 2 3 - Exam 23-year-old female in no distress HEENT: Anicteric conjunctiva are pink and moist nasal mucosa grossly intact without significant lesions, there is no thrush. Neck: The neck is supple without significant lymphadenopathy or thyromegaly. Lungs: Good bilateral air entry without significant crackles or wheezing. There is no significant bronchial sounds. There is no egophony or dullness. Heart: Regular rate and rhythm with an audible S1-S2, no S3 no S4. There is no significant murmur click or rub, PMI was nondisplaced. Abdomen: Positive bowel sounds soft and nontender without palpable masses or organomegaly. There was no guarding or rebound. Extremities: The upper extremities have excellent pulses they are symmetric, no significant petechiae or telangiectasia. No splinter hemorrhages were noted. evidence of 2 small areas of granulation onto the left lateral arm. The lower extremities are free from significant edema. The peripheral pulses were 2+ and symmetric. Neuro: Awake alert oriented to person place and time. There are no acute new gross focal sensory motor deficits. SKIN: patient has evidence of the extensive ulceration on her scalp, from pick is not appear to be grossly infected the extensive swelling that was over the frontal area and left temporal area has resolved. - Labs CBC & Chem 7: 07/20/18 07:20 07/20/18 07:20 Labs: Abnormal Lab Results - Last 24 Hours (Table) 07/18/18 07/20/18 07/20/18 Range/Units 14:16 06:59 07:20 MCHC 30.7 L (31.0-37.0) g/dL Carbon Dioxide (22-30) mmol/L Creatinine (0.52-1.04) mg/dL Glucose (74-99) mg/dL POC Glucose (mg/dL) 346 H (75-99) mg/dL Hemoglobin A1c 10.5 H (4.0-6.0) % AST (14-36) U/L ALT (9-52) U/L Alkaline Phosphatase (38-126) U/L Total Protein (6.3-8.2) g/dL 07/20/18 07/20/18 07/20/18 Range/Units 07:20 11:45 17:08 MCHC (31.0-37.0) g/dL Carbon Dioxide 32 H (22-30) mmol/L Creatinine 0.33 L (0.52-1.04) mg/dL Glucose 379 H (74-99) mg/dL POC Glucose (mg/dL) 155 H 118 H (75-99) mg/dL Hemoglobin A1c (4.0-6.0) % AST 135 H (14-36) U/L ALT 83 H (9-52) U/L Alkaline Phosphatase 281 H (38-126) U/L Total Protein 6.1 L (6.3-8.2) g/dL Microbiology - Last 24 Hours (Table) 07/18/18 14:16 Blood Culture - Preliminary Blood No Growth after 48 hours 07/18/18 14:37 Urine Culture - Final Urine,Clean Catch Laboratory Results WBC 7.5 k/uL (3.8-10.6) 07/20/18 07:20 RBC 4.15 m/uL (3.80-5.40) 07/20/18 07:20 Hgb 11.4 gm/dL (11.4-16.0) 07/20/18 07:20 Hct 37.2 % (34.0-46.0) 07/20/18 07:20 MCV 89.7 fL (80.0-100.0) 07/20/18 07:20 MCH 27.5 pg (25.0-35.0) 07/20/18 07:20 MCHC 30.7 g/dL (31.0-37.0) L 07/20/18 07:20 RDW 14.3 % (11.5-15.5) 07/20/18 07:20 Plt Count 421 k/uL (150-450) 07/20/18 07:20 Neutrophils % 54 % 07/20/18 07:20 Lymphocytes % 38 % 07/20/18 07:20 Monocytes % 3 % 07/20/18 07:20 Eosinophils % 3 % 07/20/18 07:20 Basophils % 1 % 07/20/18 07:20 Neutrophils # 4.0 k/uL (1.3-7.7) 07/20/18 07:20 Lymphocytes # 2.8 k/uL (1.0-4.8) 07/20/18 07:20 Monocytes # 0.3 k/uL (0-1.0) 07/20/18 07:20 Eosinophils # 0.2 k/uL (0-0.7) 07/20/18 07:20 Basophils # 0.1 k/uL (0-0.2) 07/20/18 07:20 Hypochromasia Moderate 07/20/18 07:20 PT 9.3 sec (9.0-12.0) 07/18/18 14:16 INR 0.8 (<1.2) 07/18/18 14:16 APTT 22.3 sec (22.0-30.0) 07/18/18 14:16 Sodium 138 mmol/L (137-145) 07/20/18 07:20 Potassium 5.0 mmol/L (3.5-5.1) 07/20/18 07:20 Chloride 99 mmol/L (98-107) 07/20/18 07:20 Carbon Dioxide 32 mmol/L (22-30) H 07/20/18 07:20 Anion Gap 7 mmol/L 07/20/18 07:20 BUN 13 mg/dL (7-17) 07/20/18 07:20 Creatinine 0.33 mg/dL (0.52-1.04) L 07/20/18 07:20 Est GFR (CKD-EPI)AfAm >90 (>60 ml/min/1.73 sqM) 07/20/18 07:20 Est GFR (CKD-EPI)NonAf >90 (>60 ml/min/1.73 sqM) 07/20/18 07:20 Glucose 379 mg/dL (74-99) H 07/20/18 07:20 POC Glucose (mg/dL) 83 mg/dL (75-99) 07/20/18 20:00 POC Glu Fish Worm Grower MARY Linda Plascencia 07/20/18 20:[address] Glu mg/dL 255 07/18/18 14:16 Hemoglobin A1c 10.5 % (4.0-6.0) H 07/18/18 14:16 Lactic Ac Sepsis Rflx Y 07/18/18 14:37 Plasma Lactic Acid Ben 1.8 mmol/L (0.7-2.0) 07/20/18 07:20 Calcium 8.9 mg/dL (8.4-10.2) 07/20/18 07:20 Total Bilirubin 0.2 mg/dL (0.2-1.3) 07/20/18 07:20 Conjugated Bilirubin 0.0 mg/dL (0.0-0.3) 07/20/18 07:20 Unconjugated Bilirubin 0.0 mg/dL (0.0-1.1) 07/20/18 07:20 Delta Bilirubin 0.2 mg/dL (0.0-0.2) 07/20/18 07:20 AST 135 U/L (14-36) H 07/20/18 07:20 ALT 83 U/L (9-52) H 07/20/18 07:20 Alkaline Phosphatase 281 U/L (38-126) H 07/20/18 07:20 Total Protein 6.1 g/dL (6.3-8.2) L 07/20/18 07:20 Albumin 3.7 g/dL (3.5-5.0) 07/20/18 07:20 Urine Color Yellow 07/18/18 14:37 Urine Appearance Clear (Clear) 07/18/18 14:37 Urine pH 7.0 (5.0-8.0) 07/18/18 14:37 Ur Specific Reese 1.024 (1.001-1.035) 07/18/18 14:37 Urine Protein Trace (Negative) H 07/18/18 14:37 Urine Glucose (UA) 4+ (Negative) H 07/18/18 14:37 Urine Ketones Negative (Negative) 07/18/18 14:37 Urine Blood Negative (Negative) 07/18/18 14:37 Urine Nitrite Negative (Negative) 07/18/18 14:37 Urine Bilirubin Negative (Negative) 07/18/18 14:37 Urine Urobilinogen <2.0 mg/dL (<2.0) 07/18/18 14:37 Ur Leukocyte Esterase Moderate (Negative) H 07/18/18 14:37 Urine WBC 4 /hpf (0-5) 07/18/18 14:37 Ur Squamous Epith Cells 3 /hpf (0-4) 07/18/18 14:37 Urine Mucus Rare /hpf (None) H 07/18/18 14:37 Acetone, Qual Negative (Negative) 07/18/18 14:16 Microbiology 07/18/18 14:16 Blood Blood Culture - Preliminary No Growth after 48 hours 07/18/18 14:37 Urine,Clean Catch Urine Culture - Final Assessment and Plan (1) Superficial swelling of scalp Current Visit: Yes Status: Acute Code(s): R22.0 - LOCALIZED SWELLING, MASS AND LUMP, HEAD SNOMED Code(s): 781521651 (2) 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 She was placed in a new recent medications. Has been no change of her diet. Has been no other new exposures to any new chemicals. It is noted she's had no recent travel and no large or exposures. The patient does follow with neurology for her multiple difficulties and unclear if there have been any significant changes of her regiment as of late. Is noted mother was concerned about the possibility of hydrocephalushis CT has been performed. No evidence of any vascular abnormalities, vascular no deformities, aneurysm or hydrocephalus. The swelling is rapidly decreasing with local care, Benadryl and monitoring. Etiology is not clear but localized ALLERGIC reaction is of some concern given the response to Benadryl. The chronic pick granuloma of the scalp is without significant change since the last evaluation. Lymphadenopathy is without change. Topical anti-inflammatory is applied to help. Continue to follow with her team to try to improve her overall status. 07/20/2018 patient's advanced swelling has resolved with Benadryl. Blood sugars are improving with current care. The scalp lesions are with little change in her very chronic in nature. She'll follow-up with psychiatry in the outpatient setting. Current Visit: Yes Status: Acute Code(s): L92.9 - GRANULOMATOUS DISORDER OF THE SKIN, SUBCU, UNSP SNOMED Code(s): 391538140
[2018-07-21] MEDS: ONDANSETRON 4 MG/2 ML VIAL IVP PRN (01:14)
[2018-07-21] MEDS: AMPICILLIN-SULBACTAM 3 GM in SODIUM CHLORIDE 0.9% 100 ML IVPB SCH ×4 (05:42→23:31)
[2018-07-21] MEDS: LEVOTHYROXINE 25 MCG TAB PO SCH (05:42)
[2018-07-21 07:01] LABS: Glucose,Whole Blood 412 mg/dL (75-99)
[2018-07-21] MEDS: INSULIN DETEMIR (LEVEMIR) 100 UNIT/ML SYR SQ SCH (07:39)
[2018-07-21] MEDS: FLUDROCORTISONE 0.1 MG TAB PO SCH (07:39)
[2018-07-21] MEDS: GABAPENTIN 300 MG CAP PO SCH ×2 (07:39→21:44)
[2018-07-21] MEDS: PANTOPRAZOLE 40 MG TABLET PO SCH (07:39)
[2018-07-21] MEDS: CHOLECALCIFEROL 1,000 UNIT TAB PO SCH (07:39)
[2018-07-21] MEDS: PRAVASTATIN SODIUM 20 MG TAB PO SCH (07:39)
[2018-07-21] MEDS: TRIAMCINOLONE 0.1% CREAM 80 GM TUBE TOPICAL SCH ×3 (07:40→21:46)
[2018-07-21] MEDS: INSULIN ASPART (NovoLOG) 100 UNIT/ML VIAL SQ SCH ×4 (07:40→21:45)
[2018-07-21] MEDS: ENOXAPARIN 40 MG/0.4 ML SYRINGE SQ SCH (07:41)
[2018-07-21 08:19] LABS: Basophils # (A) 0.1 k/uL (0-0.2); Basophils % (A) 1 %; Eosinophils # (A) 0.1 k/uL (0-0.7); Eosinophils % (A) 2 %; HCT 37.9 % (34.0-46.0); HGB 11.7 gm/dL (11.4-16.0); Hypochromasia Slight; Lymphocytes # (A) 2.5 k/uL (1.0-4.8); Lymphocytes % (A) 34 %; MCH 27.7 pg (25.0-35.0); MCHC 30.9 g/dL (31.0-37.0); MCV 89.5 fL (80.0-100.0); Mean Platelet Volume 6.6; Monocytes # (A) 0.2 k/uL (0-1.0); Monocytes % (A) 3 %; Neutrophils # (A) 4.3 k/uL (1.3-7.7); Neutrophils % (A) 59 %; Platelet Count 408 k/uL (150-450); RBC 4.24 m/uL (3.80-5.40); RDW 14.3 % (11.5-15.5); WBC 7.3 k/uL (3.8-10.6)
[2018-07-21 08:36] LABS: Albumin 3.7 g/dL (3.5-5.0); Bilirubin, Delta 0.1 mg/dL (0.0-0.2); Bilirubin,Unconjugated 0.2 mg/dL (0.0-1.1); Total Bilirubin 0.3 mg/dL (0.2-1.3)
[2018-07-21] MEDS: ALBUTEROL NEBULIZED 2.5 MG/3 ML INHALATION SCH ×2 (09:35→20:57)
[2018-07-21] MEDS: Acetaminophen-Codeine 300-30mg TAB PO PRN ×2 (09:42→21:44)
--- NOTE | 2018-07-21 10:12 | US ---
EXAMINATION TYPE: US liver DATE OF EXAM: 07/21/2018 COMPARISON: NONE CLINICAL HISTORY: elevated liver enz. no symptoms, cholecystectomy EXAM MEASUREMENTS: Liver Length: 14.9 cm Gallbladder Wall: Surgically absent CBD: 0.5 cm Right Kidney: 10.6 x 5.2 x 4.8 cm *bowel gas limits some imaging* Pancreas: wnl Liver: wnl Gallbladder: Surgically absent Evidence for sonographic Garner's sign: no CBD: wnl Right Kidney: wnl IMPRESSION: 1. No suspicious acute ultrasound abnormality right upper quadrant.
[2018-07-21 11:32] LABS: Glucose,Whole Blood 150 mg/dL (75-99)
--- NOTE | 2018-07-21 16:46 | CDI ---
Documentation Clarification Form Date: 07/21/2018 4:11:46 PM From: Adriana Mosquera RN, CCDS Admit Date: 07/20/2018 5:52:00 PM Patient Name: Teri Henry Visit Number: [id number] Discharge Date: ATTENTION: The Clinical Documentation Specialists (CDI) and [facility] Coding Staff appreciate your assistance in clarifying documentation. Please respond to the clarification below the line at the bottom and electronically sign. The CDI & [facility] Coding staff will review the response and follow-up if needed. Please note: Queries are made part of the Legal Health Record. If you have any questions, please contact the author of this message via ITS. Dr. Soren Valdez The patient presented with the following history of type I diabetes and difficulty with stabilizing insulin and eating due to gastropraresis History/Risk Factors: Diabetes mellitus type 1, Hypertension Clinical Indicators: 07/20/18 progress notes has patient has adjustment disorder due to her diabetes illness being uncontrolled. Lab findings: Glucose 52, 104, 211, 294 , 260 07/20/18 RBS 379, 155, 412 Hemoglobin A1c 10.5 Treatment: Monitor blood sugars per orders Novolog insulin SQ ACHS Levemir SQ daily In your professional opinion, can you please further clarify diabetes illness being uncontrolled? Type 1 diabetes with Hyperglycemia Type 1 diabetes with Hypoglycemia Other, please specify Unable to determine Link any complication or manifestation or related to Diabetes Mellitus if known; Diabetic Gastroparesis, Diabetic Nephropathy Other, please specify Unable to determine (Last Revision: June 2017) Most likely 1 diabetes with hyperglycemia Patient did not presents with diabetic gastroparesis MTDD
--- NOTE | 2018-07-21 17:05 | P.PN ---
Subjective This is a pleasant 24 years old female who was under my care just recently discharged from hospital for DKA and other medical problems including diabetes mellitus, brain tumors, gastroparesis, possible autonomic dysfunction, hypothyroidism and hypertension. Patient presents with swelling in the face mainly on the left side of the forehead over 3 days duration. On examination patient has at least for source which they look and dry on the top of her scalp, resistant tears missing. As per patient mom at bedside this is not trichotillomania. On examination patient has multiple skin soles but with no purulent discharge, some of them is about almost 1 inch in lung dye meters others are smaller. No much surrounding cellulitis or pain or tenderness. She has bilateral posterior auricular lymph node enlargement more on the right side, on the left side actually is improved compared to the last time I saw her. Patient states that she still virgin she does not need test 07/20/18 pt sysmptoms of head sores is improving with topical steroids, psych follow up is appreciated and found to have adjustment disorder due to her diabetes illness being uncontrolled . leukocytosis improved ,lactic acid is back to normal , pt Liver enz mildly elevated , hepaitis panel was checked last month and was negative, we will do liver US. pt has no nausea or vomiting now , she is on scolopamine patch upon her request . her face/forehead swelling has resolved , she not sure if she is allregic to anything and states she did not take any new medication of food. 07/21/2018 Patient sores on her scalp are improving. She still have posterior auricular lymphadenopathy more on the right side.. Her sugar is always high in the [place] morning. However during this of the day is better controlled. We'll ask staff to check for her sugar tonight at 3 AM. Patient is hemodynamically stable. Labs are unremarkable and liver enzymes are improving, Although still mildly elevated Review of Systems CONSTITUTIONAL: No fever, no malaise, no fatigue. HEENT: No recent visual problems or hearing problems. Denied any sore throat. CARDIOVASCULAR: No orthopnea, PND, no palpitations, no syncope. PULMONARY: No shortness of breath, no cough, no hemoptysis. GASTROINTESTINAL: No diarrhea, no nausea, no vomiting, no abdominal pain. Normoactive bowel sounds. NEUROLOGICAL: No headaches, no weakness, no numbness. HEMATOLOGICAL: Denies any bleeding or petechiae. GENITOURINARY: Denies any burning micturition, frequency, or urgency. MUSCULOSKELETAL/RHEUMATOLOGICAL: Denies any joint pain, swelling, or any muscle pain. ENDOCRINE: Denies any polyuria or polydipsia. Objective - Vital Signs Vital signs: Vital Signs Temp 97.5 F L 07/21/18 11:38 Pulse 107 H 07/21/18 11:38 Resp 16 07/21/18 11:38 BP 125/67 07/21/18 11:38 Pulse Ox 98 07/21/18 11:38 Intake & Output 07/20/18 07/21/18 07/21/18 18:59 06:59 18:59 Intake Total 294 597 8472 Balance 409 145 3388 Weight 52 kg Intake: Intake, IV Titration 200 100 Amount Ampicillin-Sulbactam 3 gm 200 100 In Sodium Chloride 0.9% 100 ml @ 200 mls/hr IVPB Q6HR [facility] Rx#:[id number] Oral 590 1520 Other: Voiding Method Toilet Toilet # Voids 3 3 - Exam GENERAL: The patient is alert and oriented x3, not in any acute distress. Well developed, well nourished. -HEENT: Pupils are round and equally reacting to light. EOMI. No scleral icterus. No conjunctival pallor. Normocephalic, atraumatic. No pharyngeal erythema. No thyromegaly. 4 sores on the top of her scalp, no surrounding cellulitis, no purulent discharge. The largest one is about 1 inch in diameter, however there are smaller ones. Also patient has enlarged lymph nodes behind her ears, larger on the right with only minimal enlargement on the left CARDIOVASCULAR: S1 and S2 present. No murmurs, rubs, or gallops. PULMONARY: Chest is clear to auscultation, no wheezing or crackles. ABDOMEN: Soft, nontender, nondistended, normoactive bowel sounds. No palpable organomegaly. MUSCULOSKELETAL: No joint swelling or deformity. EXTREMITIES: No cyanosis, clubbing, or pedal edema. NEUROLOGICAL: Gross neurological examination did not reveal any focal deficits. SKIN: No rashes. - Labs CBC & Chem 7: 07/21/18 07:47 07/20/18 07:20 Labs: Abnormal Lab Results - Last 24 Hours (Table) 07/20/18 07/21/18 07/21/18 Range/Units 17:08 07:00 07:47 MCHC 30.9 L (31.0-37.0) g/dL POC Glucose (mg/dL) 118 H 412 H (75-99) mg/dL AST (14-36) U/L ALT (9-52) U/L Alkaline Phosphatase (38-126) U/L Total Protein (6.3-8.2) g/dL 07/21/18 07/21/18 Range/Units 07:47 11:30 MCHC (31.0-37.0) g/dL POC Glucose (mg/dL) 150 H (75-99) mg/dL AST 56 H (14-36) U/L ALT 65 H (9-52) U/L Alkaline Phosphatase 232 H (38-126) U/L Total Protein 6.0 L (6.3-8.2) g/dL Microbiology - Last 24 Hours (Table) 07/18/18 14:16 Blood Culture - Preliminary Blood No Growth after 72 hours Assessment and Plan Assessment: Scalp infection with multiple skin sores Bilateral posterior auricular lymphadenopathy, mostly secondary to above adjustment disorder with anxiety more likely due to the chronic illness of type 1 diabetes and difficulty with stabilizing insulin and eating due to gastroparesis. 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 Patient started on antibiotics. Infectious disease consult is following the case.although the mother thinks it's not trichotillomania, however patient and her mother agrees for psychiatric evaluation for checking Labs and medication were reviewed.. Continue same treatment. Continue with symptomatic treatment. Resume home medication. Monitor lytes and vitals. DVT and GI prophylaxis. Further recommendations of the clinical course of the patient DVT prophylaxis: Subcutaneous Lovenox GI Prophylaxis: Pepcid Prognosis is guarded
[2018-07-21 17:17] LABS: Glucose,Whole Blood 152 mg/dL (75-99)
[2018-07-21] MEDS: hydrOXYzine HCL 25 MG TAB PO PRN (17:56)
[2018-07-21 20:27] LABS: Glucose,Whole Blood 218 mg/dL (75-99)
--- NOTE | 2018-07-21 21:57 | P.PN ---
Subjective Progress Note Date: 07/21/18 23-year-old female who has multiple medical troubles and is followed by local neurology for her intracranial tumors. The patient has difficulty with pick granuloma on her scalp that is slightly improved from the last evaluation. She does have some stable unchanging lymphadenopathy throughout the neck that has had prior evaluation. Imaging studies do not reveal evidence of any significant change in this. Patient does not recall any significant new changes but had a sudden onset of swelling to the forehead as well as to the left temporal area. It was very uncomfortable and because of the headache she presented hospital for further evaluation. The mother was concerned that with the intracranial tumors that maybe she was developing hydrocephalus and this was causing the swelling to the head. The patient herself relates that she had some headache and this is improving. The swelling was uncomfortable. 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 Was not having those at home. Denies other acute interval difficulties. Continues to have difficulties with picking at her scalp although with a topical anti-inflammatory this is had some improvement. There are some pick injuries to the left arm no other areas 07/20/2018 patient without acute complaints today. Is feeling better. Blood sugars are improving. Swelling to the face improved 07/21/2018 patient is feeling better today. Facial swelling is resolved. Blood sugars continue to vacillate. 400 115 so far today. The scalp lesions are slightly improved since admission. She denies other acute lesions at this time. Objective - Vital Signs Vital signs: Vital Signs Temp 99.2 F 07/21/18 21:00 Pulse 98 07/21/18 21:10 Resp 18 07/21/18 21:00 BP 153/91 07/21/18 21:00 Pulse Ox 100 07/21/18 21:00 Intake & Output 07/21/18 07/21/18 07/22/18 06:59 18:59 06:59 Intake Total 200 1620 Balance 200 1620 Intake: Intake, IV Titration 200 100 Amount Ampicillin-Sulbactam 3 gm 200 100 In Sodium Chloride 0.9% 100 ml @ 200 mls/hr IVPB Q6HR [facility] Rx#:[id number] Oral 1520 Other: Voiding Method Toilet Toilet # Voids 3 - Exam 23-year-old female in no distress HEENT: Anicteric conjunctiva are pink and moist nasal mucosa grossly intact without significant lesions, there is no thrush. Neck: The neck is supple without significant lymphadenopathy or thyromegaly. Lungs: Good bilateral air entry without significant crackles or wheezing. There is no significant bronchial sounds. There is no egophony or dullness. Heart: Regular rate and rhythm with an audible S1-S2, no S3 no S4. There is no significant murmur click or rub, PMI was nondisplaced. Abdomen: Positive bowel sounds soft and nontender without palpable masses or organomegaly. There was no guarding or rebound. Extremities: The upper extremities have excellent pulses they are symmetric, no significant petechiae or telangiectasia. No splinter hemorrhages were noted. evidence of 2 small areas of granulation onto the left lateral arm. The lower extremities are free from significant edema. The peripheral pulses were 2+ and symmetric. Neuro: Awake alert oriented to person place and time. There are no acute new gross focal sensory motor deficits. SKIN: patient has evidence of the extensive ulceration on her scalp, from pick is not appear to be grossly infected the extensive swelling that was over the frontal area and left temporal area has resolved. - Labs CBC & Chem 7: 07/21/18 07:47 07/20/18 07:20 Labs: Abnormal Lab Results - Last 24 Hours (Table) 07/21/18 07/21/18 07/21/18 Range/Units 07:00 07:47 07:47 MCHC 30.9 L (31.0-37.0) g/dL POC Glucose (mg/dL) 412 H (75-99) mg/dL AST 56 H (14-36) U/L ALT 65 H (9-52) U/L Alkaline Phosphatase 232 H (38-126) U/L Total Protein 6.0 L (6.3-8.2) g/dL 07/21/18 07/21/18 07/21/18 Range/Units 11:30 17:16 20:26 MCHC (31.0-37.0) g/dL POC Glucose (mg/dL) 150 H 152 H 218 H (75-99) mg/dL AST (14-36) U/L ALT (9-52) U/L Alkaline Phosphatase (38-126) U/L Total Protein (6.3-8.2) g/dL Microbiology - Last 24 Hours (Table) 07/18/18 14:16 Blood Culture - Preliminary Blood No Growth after 72 hours Laboratory Results WBC 7.3 k/uL (3.8-10.6) 07/21/18 07:47 RBC 4.24 m/uL (3.80-5.40) 07/21/18 07:47 Hgb 11.7 gm/dL (11.4-16.0) 07/21/18 07:47 Hct 37.9 % (34.0-46.0) 07/21/18 07:47 MCV 89.5 fL (80.0-100.0) 07/21/18 07:47 MCH 27.7 pg (25.0-35.0) 07/21/18 07:47 MCHC 30.9 g/dL (31.0-37.0) L 07/21/18 07:47 RDW 14.3 % (11.5-15.5) 07/21/18 07:47 Plt Count 408 k/uL (150-450) 07/21/18 07:47 Neutrophils % 59 % 07/21/18 07:47 Lymphocytes % 34 % 07/21/18 07:47 Monocytes % 3 % 07/21/18 07:47 Eosinophils % 2 % 07/21/18 07:47 Basophils % 1 % 07/21/18 07:47 Neutrophils # 4.3 k/uL (1.3-7.7) 07/21/18 07:47 Lymphocytes # 2.5 k/uL (1.0-4.8) 07/21/18 07:47 Monocytes # 0.2 k/uL (0-1.0) 07/21/18 07:47 Eosinophils # 0.1 k/uL (0-0.7) 07/21/18 07:47 Basophils # 0.1 k/uL (0-0.2) 07/21/18 07:47 Hypochromasia Slight 07/21/18 07:47 PT 9.3 sec (9.0-12.0) 07/18/18 14:16 INR 0.8 (<1.2) 07/18/18 14:16 APTT 22.3 sec (22.0-30.0) 07/18/18 14:16 Sodium 138 mmol/L (137-145) 07/20/18 07:20 Potassium 5.0 mmol/L (3.5-5.1) 07/20/18 07:20 Chloride 99 mmol/L (98-107) 07/20/18 07:20 Carbon Dioxide 32 mmol/L (22-30) H 07/20/18 07:20 Anion Gap 7 mmol/L 07/20/18 07:20 BUN 13 mg/dL (7-17) 07/20/18 07:20 Creatinine 0.33 mg/dL (0.52-1.04) L 07/20/18 07:20 Est GFR (CKD-EPI)AfAm >90 (>60 ml/min/1.73 sqM) 07/20/18 07:20 Est GFR (CKD-EPI)NonAf >90 (>60 ml/min/1.73 sqM) 07/20/18 07:20 Glucose 379 mg/dL (74-99) H 07/20/18 07:20 POC Glucose (mg/dL) 218 mg/dL (75-99) H 07/21/18 20:26 POC Glu [employer] ID 07/21/18 20:[address] Glu mg/dL 255 07/18/18 14:16 Hemoglobin A1c 10.5 % (4.0-6.0) H 07/18/18 14:16 Lactic Ac Sepsis Rflx Y 07/18/18 14:37 Plasma Lactic Acid Ben 1.8 mmol/L (0.7-2.0) 07/20/18 07:20 Calcium 8.9 mg/dL (8.4-10.2) 07/20/18 07:20 Total Bilirubin 0.3 mg/dL (0.2-1.3) 07/21/18 07:47 Conjugated Bilirubin 0.0 mg/dL (0.0-0.3) 07/21/18 07:47 Unconjugated Bilirubin 0.2 mg/dL (0.0-1.1) 07/21/18 07:47 Delta Bilirubin 0.1 mg/dL (0.0-0.2) 07/21/18 07:47 AST 56 U/L (14-36) H 07/21/18 07:47 ALT 65 U/L (9-52) H 07/21/18 07:47 Alkaline Phosphatase 232 U/L (38-126) H 07/21/18 07:47 Total Protein 6.0 g/dL (6.3-8.2) L 07/21/18 07:47 Albumin 3.7 g/dL (3.5-5.0) 07/21/18 07:47 Urine Color Yellow 07/18/18 14:37 Urine Appearance Clear (Clear) 07/18/18 14:37 Urine pH 7.0 (5.0-8.0) 07/18/18 14:37 Ur Specific [place] 1.024 (1.001-1.035) 07/18/18 14:37 Urine Protein Trace (Negative) H 07/18/18 14:37 Urine Glucose (UA) 4+ (Negative) H 07/18/18 14:37 Urine Ketones Negative (Negative) 07/18/18 14:37 Urine Blood Negative (Negative) 07/18/18 14:37 Urine Nitrite Negative (Negative) 07/18/18 14:37 Urine Bilirubin Negative (Negative) 07/18/18 14:37 Urine Urobilinogen <2.0 mg/dL (<2.0) 07/18/18 14:37 Ur Leukocyte Esterase Moderate (Negative) H 07/18/18 14:37 Urine WBC 4 /hpf (0-5) 07/18/18 14:37 Ur Squamous Epith Cells 3 /hpf (0-4) 07/18/18 14:37 Urine Mucus Rare /hpf (None) H 07/18/18 14:37 Acetone, Qual Negative (Negative) 07/18/18 14:16 Microbiology 07/18/18 14:16 Blood Blood Culture - Preliminary No Growth after 72 hours 07/18/18 14:37 Urine,Clean Catch Urine Culture - Final Assessment and Plan (1) Superficial swelling of scalp Current Visit: Yes Status: Acute Code(s): R22.0 - LOCALIZED SWELLING, MASS AND LUMP, HEAD SNOMED Code(s): 661958624 (2) 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 She was placed in a new recent medications. Has been no change of her diet. Has been no other new exposures to any new chemicals. It is noted she's had no recent travel and no large or exposures. The patient does follow with neurology for her multiple difficulties and unclear if there have been any significant changes of her regiment as of late. Is noted mother was concerned about the possibility of hydrocephalushis CT has been performed. No evidence of any vascular abnormalities, vascular no deformities, aneurysm or hydrocephalus. The swelling is rapidly decreasing with local care, Benadryl and monitoring. Etiology is not clear but localized ALLERGIC reaction is of some concern given the response to Benadryl. The chronic pick granuloma of the scalp is without significant change since the last evaluation. Lymphadenopathy is without change. Topical anti-inflammatory is applied to help. Continue to follow with her team to try to improve her overall status. 07/20/2018 patient's advanced swelling has resolved with Benadryl. Blood sugars are improving with current care. The scalp lesions are with little change in her very chronic in nature. She'll follow-up with psychiatry in the outpatient setting. 07/21/2018 patient has had further improvement. The significant facial swelling is improved. Lymphadenopathy was without change. The anti-inflammatory is helping the skin and scalp lesions. She is not having any pruritus. Is not initially of outpatient psychiatric follow-up. At the time of discharge completed a course of Augmentin over proximally 7 days with ongoing topical application of the triamcinolone to the skin lesions. Current Visit: Yes Status: Acute Code(s): L92.9 - GRANULOMATOUS DISORDER OF THE SKIN, SUBCU, UNSP SNOMED Code(s): 628875560
[2018-07-22] MEDS: AMPICILLIN-SULBACTAM 3 GM in SODIUM CHLORIDE 0.9% 100 ML IVPB SCH ×2 (05:38→12:39)
[2018-07-22] MEDS: LEVOTHYROXINE 25 MCG TAB PO SCH (05:39)
[2018-07-22 06:53] LABS: Glucose,Whole Blood 381 mg/dL (75-99)
[2018-07-22] MEDS: ONDANSETRON 4 MG/2 ML VIAL IVP PRN (07:22)
[2018-07-22] MEDS: Acetaminophen-Codeine 300-30mg TAB PO PRN (07:22)
[2018-07-22] MEDS: FLUDROCORTISONE 0.1 MG TAB PO SCH (07:24)
[2018-07-22] MEDS: CHOLECALCIFEROL 1,000 UNIT TAB PO SCH (07:24)
[2018-07-22] MEDS: GABAPENTIN 300 MG CAP PO SCH (07:24)
[2018-07-22] MEDS: PANTOPRAZOLE 40 MG TABLET PO SCH (07:24)
[2018-07-22] MEDS: INSULIN ASPART (NovoLOG) 100 UNIT/ML VIAL SQ SCH ×2 (07:25→12:49)
[2018-07-22] MEDS: TRIAMCINOLONE 0.1% CREAM 80 GM TUBE TOPICAL SCH (07:30)
[2018-07-22] MEDS: ENOXAPARIN 40 MG/0.4 ML SYRINGE SQ SCH (07:34)
[2018-07-22] MEDS: INSULIN DETEMIR (LEVEMIR) 100 UNIT/ML SYR SQ SCH (07:38)
[2018-07-22] MEDS: PRAVASTATIN SODIUM 20 MG TAB PO SCH (07:39)
[2018-07-22] MEDS: ALBUTEROL NEBULIZED 2.5 MG/3 ML INHALATION SCH (08:24)
[2018-07-22 09:20] LABS: Basophils # (A) 0.1 k/uL (0-0.2); Basophils % (A) 1 %; Eosinophils # (A) 0.2 k/uL (0-0.7); Eosinophils % (A) 3 %; HCT 36.3 % (34.0-46.0); Hypochromasia Slight; Lymphocytes # (A) 2.4 k/uL (1.0-4.8); Lymphocytes % (A) 39 %; MCH 26.8 pg (25.0-35.0); MCHC 30.4 g/dL (31.0-37.0); Mean Platelet Volume 6.6; Monocytes # (A) 0.2 k/uL (0-1.0); Monocytes % (A) 3 %; Neutrophils # (A) 3.3 k/uL (1.3-7.7); Neutrophils % (A) 52 %; Platelet Count 403 k/uL (150-450); RBC 4.12 m/uL (3.80-5.40); RDW 14.7 % (11.5-15.5); WBC 6.2 k/uL (3.8-10.6)
[2018-07-22 09:36] LABS: Albumin 3.6 g/dL (3.5-5.0); Bilirubin, Delta 0.1 mg/dL (0.0-0.2); Bilirubin,Unconjugated 0.3 mg/dL (0.0-1.1); Total Bilirubin 0.4 mg/dL (0.2-1.3); Total Protein 5.9 g/dL (6.3-8.2)
[2018-07-22 11:09] LABS: Glucose,Whole Blood 184 mg/dL (75-99)
[2018-07-22 11:50] VITALS: BP 133/87; PULSE 105; RESP 16; TEMP 97.3
--- NOTE | 2018-07-22 16:40 | P.DS ---
Providers Date of admission: 07/20/18 17:52 Expected date of discharge: 07/22/18 Attending physician: Karina Teran Consults: 07/18/18 16:53 Consult Physician Stat Consulting Provider: Nikhil Olivia Consult Reason/Comments: Soft tissue swelling scalp Do you want consulting provider notified?: Yes 07/19/18 15:19 Consult Physician Routine Consulting Provider: Shekhar Odell Consult Reason/Comments: pulling out hair Do you want consulting provider notified?: Yes Primary care physician: Deborah [facility] Hospital Course: Discharge diagnosis Scalp infection with multiple skin sores Bilateral posterior auricular lymphadenopathy, mostly secondary to above adjustment disorder with anxiety more likely due to the chronic illness of type 1 diabetes and difficulty with stabilizing insulin and eating due to gastroparesis. 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 Patient presents with swelling in the face mainly on the left side of the forehead over 3 days duration. On examination patient has at least for source which they look and dry on the top of her scalp. As per patient mom at bedside this is not trichotillomania. On examination patient has multiple skin soles but with no purulent discharge, some of them is about almost 1 inch in lung dye meters others are smaller. No much surrounding cellulitis or pain or tenderness. She has bilateral posterior auricular lymph node enlargement more on the right side. Patient was admitted. She was started on antibiotics with Unasyn. Dr. Olivia was consulted for an infectious disease recommendations. Patient was also seen by psychiatry who suggested that the patient would benefit from outpatient psychotherapy On 07/22/2018 On exam, alert and oriented x3. HEENT: Conjunctivae normal. eyes normal. Patient has a lesion on the scalp which is drying looks more like scab NECK: No JVD. No thyroid enlargement. No LNs CARDIOVASCULAR: S1, S2 muffled. No murmur RESPIRATION: Breath sounds diminished in the bases. No rhonchi or crackles. No bronchial breathing. ABDOMEN: Soft, nontender . No guarding. no masses palpable. No ascites, No hepatosplenomegaly.Bowel sounds heard. LEGS: No edema. no swelling she also has some small lesions in her upper extremity NERVOUS SYSTEM: Cranial N 2-12 grossly normal. Moves all 4 limbs. No focal deficits. No sensory deficit. No signs of cerebellar dysfucntion. Skin: no ulcer no rash Patient was instructed to keep a watch on her morning blood sugars is running high. Patient was instructed to follow up with primary care doctors for arrangement for outpatient psychotherapy Primary care doctors also requested to keep a watch on patient's blood sugar. I tried to get an appointment for the patient for an endocrine doctor. They're not available till August Patient also has increased LFTs. Patient needs a follow-up in the next 4 weeks Patient Condition at Discharge: Stable Plan - Discharge Summary Discharge Rx Participant: No New Discharge Prescriptions: New Amoxic-Pot Clav 875-125Mg [Augmentin 875-125] 1 tab PO Q12HR #14 tablet Triamcinolone 0.1% Cream [Kenalog 0.1% Cream] 1 applic TOPICAL TID #1 tube Acetaminophen Tab [Tylenol] 650 mg PO Q6HR PRN #30 tab PRN Reason: Mild Pain Or Fever > 100.5 Continue Levothyroxine Sodium [Synthroid] 25 mcg PO DAILY Cyclobenzaprine [Flexeril] 10 mg PO BID PRN PRN Reason: muscle spasms Albuterol Inhaler [Ventolin Hfa Inhaler] 1 - 2 puff INHALATION RT-BID hydrOXYzine HCL [Atarax] 25 mg PO TID PRN PRN Reason: Anxiety Gabapentin [Neurontin] 300 mg PO BID Cholecalciferol (Vitamin D3) [Vitamin D3] 2,000 unit PO DAILY Ondansetron Odt [Zofran ODT] 8 mg PO Q8HR PRN PRN Reason: Nausea Loperamide [Imodium] 2 mg PO QID PRN PRN Reason: Diarrhea Insulin Aspart [NovoLOG] See Protocol SQ QID Glucagen Hypo Kit 1 injection SQ DAILY PRN PRN Reason: hypoglycemia Meclizine [Antivert] 25 mg PO BID PRN PRN Reason: dizziness Pantoprazole [Protonix] 40 mg PO DAILY Pravastatin Sodium [Pravachol] 20 mg PO DAILY Fludrocortisone Acetate 0.1 mg PO DAILY Acetaminophen-Codeine 300-30mg [Tylenol w/codeine #3] 1 tab PO Q6H PRN PRN Reason: Pain Insulin Glargine,Hum.rec.anlog [Basaglar Kwikpen U-100] 10 unit SQ DAILY diphenhydrAMINE [Benadryl] 25 mg PO QID PRN PRN Reason: Itching Discharge Medication List Levothyroxine Sodium [Synthroid] 25 mcg PO DAILY 01/03/18 [History] Albuterol Inhaler [Ventolin Hfa Inhaler] 1 - 2 puff INHALATION RT-BID 02/06/18 [History] Cholecalciferol (Vitamin D3) [Vitamin D3] 2,000 unit PO DAILY 02/06/18 [History] Cyclobenzaprine [Flexeril] 10 mg PO BID PRN 02/06/18 [History] Gabapentin [Neurontin] 300 mg PO BID 02/06/18 [History] hydrOXYzine HCL [Atarax] 25 mg PO TID PRN 02/06/18 [History] Ondansetron Odt [Zofran ODT] 8 mg PO Q8HR PRN 05/08/18 [History] Acetaminophen-Codeine 300-30mg [Tylenol w/codeine #3] 1 tab PO Q6H PRN 07/18/18 [History] Fludrocortisone Acetate 0.1 mg PO DAILY 07/18/18 [History] Glucagen Hypo Kit 1 injection SQ DAILY PRN 07/18/18 [History] Insulin Aspart [NovoLOG] See Protocol SQ QID 07/18/18 [History] Insulin Glargine,Hum.rec.anlog [Basaglar Kwikpen U-100] 10 unit SQ DAILY 07/18/18 [History] Loperamide [Imodium] 2 mg PO QID PRN 07/18/18 [History] Meclizine [Antivert] 25 mg PO BID PRN 07/18/18 [History] Pantoprazole [Protonix] 40 mg PO DAILY 07/18/18 [History] Pravastatin Sodium [Pravachol] 20 mg PO DAILY 07/18/18 [History] diphenhydrAMINE [Benadryl] 25 mg PO QID PRN 07/18/18 [History] Acetaminophen Tab [Tylenol] 650 mg PO Q6HR PRN #30 tab 07/22/18 [Rx] Amoxic-Pot Clav 875-125Mg [Augmentin 875-125] 1 tab PO Q12HR #14 tablet 07/22/18 [Rx] Triamcinolone 0.1% Cream [Kenalog 0.1% Cream] 1 applic TOPICAL TID #1 tube 07/22/18 [Rx] Follow up Appointment(s)/Referral(s): Deborah Stearns MD [Primary Care Provider] - 1-2 days Satya Christine MD [REFERRING] - 08/20/18 9:30 am (Bring list of meds, insurance cards, and arrive 10 mins early. This appointment is at the [facility] office. ) Activity/Diet/Wound Care/Special Instructions: If you have any increased drainage from the wound, increased pain, increased redness around the wound site, any fever or chills, any increased blood sugars, any increased lethargy, increased urination, uncontrolled blood sugars, any to call 911 and come to the ER right away Discharge Disposition: HOME SELF-CARE
--- NOTE | 2018-07-22 23:21 | P.PN ---
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 The patient has difficulty with pick granuloma on her scalp that is slightly improved from the last evaluation. She does have some stable unchanging lymphadenopathy throughout the neck that has had prior evaluation. Imaging studies do not reveal evidence of any significant change in this. Patient does not recall any significant new changes but had a sudden onset of swelling to the forehead as well as to the left temporal area. It was very uncomfortable and because of the headache she presented hospital for further evaluation. The mother was concerned that with the intracranial tumors that maybe she was developing hydrocephalus and this was causing the swelling to the head. The patient herself relates that she had some headache and this is improving. The swelling was uncomfortable. 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 Was not having those at home. Denies other acute interval difficulties. Continues to have difficulties with picking at her scalp although with a topical anti-inflammatory this is had some improvement. There are some pick injuries to the left arm no other areas 07/20/2018 patient without acute complaints today. Is feeling better. Blood sugars are improving. Swelling to the face improved 07/21/2018 patient is feeling better today. Facial swelling is resolved. Blood sugars continue to vacillate. 400 115 so far today. The scalp lesions are slightly improved since admission. She denies other acute lesions at this time. July 2018 patient has further improvement. The facial swelling is resolved. Blo od sugars are with less variability. She does not feel poorly. Objective - Vital Signs Vital signs: Vital Signs Temp 97.3 F L 07/22/18 11:09 Pulse 105 H 07/22/18 15:19 Resp 16 07/22/18 15:19 BP 133/87 07/22/18 11:09 Pulse Ox 99 07/22/18 11:09 Intake & Output 07/22/18 07/22/18 07/23/18 06:59 18:59 06:59 Intake Total 100 1640 Balance 100 1640 Intake: Intake, IV Titration 100 200 Amount Ampicillin-Sulbactam 3 gm 100 200 In Sodium Chloride 0.9% 100 ml @ 200 mls/hr IVPB Q6HR [facility] Rx#:[id number] Oral 1440 Other: Voiding Method Toilet Toilet # Voids 1 3 - Exam 23-year-old female in no distress HEENT: Anicteric conjunctiva are pink and moist nasal mucosa grossly intact without significant lesions, there is no thrush. Neck: The neck is supple without significant lymphadenopathy or thyromegaly. Lungs: Good bilateral air entry without significant crackles or wheezing. There is no significant bronchial sounds. There is no egophony or dullness. Heart: Regular rate and rhythm with an audible S1-S2, no S3 no S4. There is no significant murmur click or rub, PMI was nondisplaced. Abdomen: Positive bowel sounds soft and nontender without palpable masses or organomegaly. There was no guarding or rebound. Extremities: The upper extremities have excellent pulses they are symmetric, no significant petechiae or telangiectasia. No splinter hemorrhages were noted. evidence of 2 small areas of granulation onto the left lateral arm. The lower extremities are free from significant edema. The peripheral pulses were 2+ and symmetric. Neuro: Awake alert oriented to person place and time. There are no acute new gross focal sensory motor deficits. SKIN: patient has evidence of the extensive ulceration on her scalp, from pick is not appear to be grossly infected the extensive swelling that was over the frontal area and left temporal area has resolved. - Labs CBC & Chem 7: 07/22/18 08:31 07/20/18 07:20 Labs: Abnormal Lab Results - Last 24 Hours (Table) 07/22/18 07/22/18 07/22/18 Range/Units 06:52 08:31 08:31 Hgb 11.0 L (11.4-16.0) gm/dL MCHC 30.4 L (31.0-37.0) g/dL POC Glucose (mg/dL) 381 H (75-99) mg/dL AST 73 H (14-36) U/L ALT 64 H (9-52) U/L Alkaline Phosphatase 175 H (38-126) U/L Total Protein 5.9 L (6.3-8.2) g/dL 07/22/18 Range/Units 11:08 Hgb (11.4-16.0) gm/dL MCHC (31.0-37.0) g/dL POC Glucose (mg/dL) 184 H (75-99) mg/dL AST (14-36) U/L ALT (9-52) U/L Alkaline Phosphatase (38-126) U/L Total Protein (6.3-8.2) g/dL Microbiology - Last 24 Hours (Table) 07/18/18 14:16 Blood Culture - Preliminary Blood No Growth after 96 hours Laboratory Results WBC 6.2 k/uL (3.8-10.6) 07/22/18 08:31 RBC 4.12 m/uL (3.80-5.40) 07/22/18 08:31 Hgb 11.0 gm/dL (11.4-16.0) L 07/22/18 08:31 Hct 36.3 % (34.0-46.0) 07/22/18 08:31 MCV 88.0 fL (80.0-100.0) 07/22/18 08:31 MCH 26.8 pg (25.0-35.0) 07/22/18 08:31 MCHC 30.4 g/dL (31.0-37.0) L 07/22/18 08:31 RDW 14.7 % (11.5-15.5) 07/22/18 08:31 Plt Count 403 k/uL (150-450) 07/22/18 08:31 Neutrophils % 52 % 07/22/18 08:31 Lymphocytes % 39 % 07/22/18 08:31 Monocytes % 3 % 07/22/18 08:31 Eosinophils % 3 % 07/22/18 08:31 Basophils % 1 % 07/22/18 08:31 Neutrophils # 3.3 k/uL (1.3-7.7) 07/22/18 08:31 Lymphocytes # 2.4 k/uL (1.0-4.8) 07/22/18 08:31 Monocytes # 0.2 k/uL (0-1.0) 07/22/18 08:31 Eosinophils # 0.2 k/uL (0-0.7) 07/22/18 08:31 Basophils # 0.1 k/uL (0-0.2) 07/22/18 08:31 Hypochromasia Slight 07/22/18 08:31 PT 9.3 sec (9.0-12.0) 07/18/18 14:16 INR 0.8 (<1.2) 07/18/18 14:16 APTT 22.3 sec (22.0-30.0) 07/18/18 14:16 Sodium 138 mmol/L (137-145) 07/20/18 07:20 Potassium 5.0 mmol/L (3.5-5.1) 07/20/18 07:20 Chloride 99 mmol/L (98-107) 07/20/18 07:20 Carbon Dioxide 32 mmol/L (22-30) H 07/20/18 07:20 Anion Gap 7 mmol/L 07/20/18 07:20 BUN 13 mg/dL (7-17) 07/20/18 07:20 Creatinine 0.33 mg/dL (0.52-1.04) L 07/20/18 07:20 Est GFR (CKD-EPI)AfAm >90 (>60 ml/min/1.73 sqM) 07/20/18 07:20 Est GFR (CKD-EPI)NonAf >90 (>60 ml/min/1.73 sqM) 07/20/18 07:20 Glucose 379 mg/dL (74-99) H 07/20/18 07:20 POC Glucose (mg/dL) 184 mg/dL (75-99) H 07/22/18 11:08 POC Glu [employer] AMRY Domingo Chacon 07/22/18 11:[address] Glu mg/dL 255 07/18/18 14:16 Hemoglobin A1c 10.5 % (4.0-6.0) H 07/18/18 14:16 Lactic Ac Sepsis Rflx Y 07/18/18 14:37 Plasma Lactic Acid Ben 1.8 mmol/L (0.7-2.0) 07/20/18 07:20 Calcium 8.9 mg/dL (8.4-10.2) 07/20/18 07:20 Total Bilirubin 0.4 mg/dL (0.2-1.3) 07/22/18 08:31 Conjugated Bilirubin 0.0 mg/dL (0.0-0.3) 07/22/18 08:31 Unconjugated Bilirubin 0.3 mg/dL (0.0-1.1) 07/22/18 08:31 Delta Bilirubin 0.1 mg/dL (0.0-0.2) 07/22/18 08:31 AST 73 U/L (14-36) H 07/22/18 08:31 ALT 64 U/L (9-52) H 07/22/18 08:31 Alkaline Phosphatase 175 U/L (38-126) H 07/22/18 08:31 Total Protein 5.9 g/dL (6.3-8.2) L 07/22/18 08:31 Albumin 3.6 g/dL (3.5-5.0) 07/22/18 08:31 Urine Color Yellow 07/18/18 14:37 Urine Appearance Clear (Clear) 07/18/18 14:37 Urine pH 7.0 (5.0-8.0) 07/18/18 14:37 Ur Specific [place] 1.024 (1.001-1.035) 07/18/18 14:37 Urine Protein Trace (Negative) H 07/18/18 14:37 Urine Glucose (UA) 4+ (Negative) H 07/18/18 14:37 Urine Ketones Negative (Negative) 07/18/18 14:37 Urine Blood Negative (Negative) 07/18/18 14:37 Urine Nitrite Negative (Negative) 07/18/18 14:37 Urine Bilirubin Negative (Negative) 07/18/18 14:37 Urine Urobilinogen <2.0 mg/dL (<2.0) 07/18/18 14:37 Ur Leukocyte Esterase Moderate (Negative) H 07/18/18 14:37 Urine WBC 4 /hpf (0-5) 07/18/18 14:37 Ur Squamous Epith Cells 3 /hpf (0-4) 07/18/18 14:37 Urine Mucus Rare /hpf (None) H 07/18/18 14:37 Acetone, Qual Negative (Negative) 07/18/18 14:16 Microbiology 07/18/18 14:16 Blood Blood Culture - Preliminary No Growth after 96 hours 07/18/18 14:37 Urine,Clean Catch Urine Culture - Final Assessment and Plan (1) Superficial swelling of scalp Status: Acute Code(s): R22.0 - LOCALIZED SWELLING, MASS AND LUMP, HEAD SNOMED Code(s): 569067178 (2) 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 She was placed in a new recent medications. Has been no change of her diet. Has been no other new exposures to any new chemicals. It is noted she's had no recent travel and no large or exposures. The patient does follow with neurology for her multiple difficulties and unclear if there have been any significant changes of her regiment as of late. Is noted mother was concerned about the possibility of hydrocephalushis CT has been performed. No evidence of any vascular abnormalities, vascular no deformities, aneurysm or hydrocephalus. The swelling is rapidly decreasing with local care, Benadryl and monitoring. Etiology is not clear but localized ALLERGIC reaction is of some concern given the response to Benadryl. The chronic pick granuloma of the scalp is without significant change since the last evaluation. Lymphadenopathy is without change. Topical anti-inflammatory is applied to help. Continue to follow with her team to try to improve her overall status. 07/20/2018 patient's advanced swelling has resolved with Benadryl. Blood sugars are improving with current care. The scalp lesions are with little change in her very chronic in nature. She'll follow-up with psychiatry in the outpatient setting. 07/21/2018 patient has had further improvement. The significant facial swelling is improved. Lymphadenopathy was without change. The anti-inflammatory is helping the skin and scalp lesions. She is not having any pruritus. Is not initially of outpatient psychiatric follow-up. At the time of discharge completed a course of Augmentin over proximally 7 days with ongoing topical application of the triamcinolone to the skin lesions. 07/22/2018 reveals the patient to have further improvement. Discharge was planned for today. Augmentin for 7 days with topical triamcinolone will be utilized. If needed he can follow-up in the office. Status: Acute Code(s): L92.9 - GRANULOMATOUS DISORDER OF THE SKIN, SUBCU, UNSP SNOMED Code(s): 465512591
== END 2018-07-22 17:20 | disposition home or self-care (01) | DRG 607 ==
LOC: EC 13:06 → 3NMEDONC 17:32 → OBSVTOIN 07-20 17:52
PROVIDERS: ADMIT Hospitalist; ATTEND Hospitalist
DX: L92.9 Granulomatous disorder of the skin and subcutaneous tissue, unspecified (principal); R64 Cachexia; Z68.1 Body mass index [BMI] 19.9 or less, adult; S00.01XA Abrasion of scalp, initial encounter; D49.6 Neoplasm of unspecified behavior of brain; D72.829 Elevated white blood cell count, unspecified; E03.9 Hypothyroidism, unspecified; E10.43 Type 1 diabetes mellitus with diabetic autonomic (poly)neuropathy; F17.210 Nicotine dependence, cigarettes, uncomplicated; F32.9 Major depressive disorder, single episode, unspecified; F43.22 Adjustment disorder with anxiety; I10 Essential (primary) hypertension; J45.909 Unspecified asthma, uncomplicated; K21.9 Gastro-esophageal reflux disease without esophagitis; K31.84 Gastroparesis; Z79.4 Long term (current) use of insulin; Z79.890 Hormone replacement therapy; Z79.899 Other long term (current) drug therapy; Z83.3 Family history of diabetes mellitus; Z82.49 Family history of ischemic heart disease and other diseases of the circulatory system; E10.65 Type 1 diabetes mellitus with hyperglycemia; R59.0 Localized enlarged lymph nodes; Z90.49 Acquired absence of other specified parts of digestive tract
CPT/HCPCS: 36415; 70496; 70498; 76705; 80053; 80076; 81001; 82009; 82248; 83036; 83605; 85025; 85610; 85730; 87040; 87086; 93005; 94640; 96361; 96365; 96366; 96375; 99285

== ENCOUNTER 2018-09-15 21:27 | Emergency (ER) | payer OTHER ==
[2018-09-15 21:37] VITALS: BP 139/70; PULSE 105; RESP 16; TEMP 98.6
--- NOTE | 2018-09-15 21:47 | XR ---
EXAMINATION TYPE: XR foot complete LT DATE OF EXAM: 09/15/2018 COMPARISON: NONE HISTORY: Pain TECHNIQUE: 3 views FINDINGS: Metatarsals are intact. I see no fracture nor dislocation. There are no erosions. Joint spa efrem are normal. IMPRESSION: Negative left foot exam. No fracture.
--- NOTE | 2018-09-15 21:52 | ED ---
Lower Extremity Injury HPI - General Chief Complaint: Extremity Injury, Lower Stated Complaint: Possible broken toe Time Seen by Provider: 09/15/18 21:30 Source: patient Mode of arrival: ambulatory Limitations: no limitations - History of Present Illness Initial Comments: 23yo female presenting to bruising of the left great toe. Patient states she noticed it today as well as pain when weightbearing. Patient states she has decreased sensation in that foot secondary to neuropathy and autonomic disorder. Patient states that she has injured herself in the past not knowing. Patient is unsure of specific moment when she injured her left great toe. Patient denies any redness of the toe shows a fever chills or general malaise. Patient has no other complaints. Upon arrival patient is an the 21 appears well. - Related Data Home Medications Medication Instructions Recorded Confirmed Levothyroxine Sodium [Synthroid] 25 mcg PO DAILY 01/03/18 07/18/18 Albuterol Inhaler [Ventolin Hfa 1 - 2 puff INHALATION RT-BID 02/06/18 07/18/18 Inhaler] Cholecalciferol (Vitamin D3) 2,000 unit PO DAILY 02/06/18 07/18/18 [Vitamin D3] Cyclobenzaprine [Flexeril] 10 mg PO BID PRN 02/06/18 07/18/18 Gabapentin [Neurontin] 300 mg PO BID 02/06/18 07/18/18 hydrOXYzine HCL [Atarax] 25 mg PO TID PRN 02/06/18 07/18/18 Ondansetron Odt [Zofran ODT] 8 mg PO Q8HR PRN 05/08/18 07/18/18 Acetaminophen-Codeine 300-30mg 1 tab PO Q6H PRN 07/18/18 07/18/18 [Tylenol w/codeine #3] Fludrocortisone Acetate 0.1 mg PO DAILY 07/18/18 07/18/18 Glucagen Hypo Kit 1 injection SQ DAILY PRN 07/18/18 07/18/18 Insulin Aspart [NovoLOG] See Protocol SQ QID 07/18/18 07/18/18 Insulin Glargine,Hum.rec.anlog 10 unit SQ DAILY 07/18/18 07/18/18 [Basaglar Kwikpen U-100] Loperamide [Imodium] 2 mg PO QID PRN 07/18/18 07/18/18 Meclizine [Antivert] 25 mg PO BID PRN 07/18/18 07/18/18 Pantoprazole [Protonix] 40 mg PO DAILY 07/18/18 07/18/18 Pravastatin Sodium [Pravachol] 20 mg PO DAILY 07/18/18 07/18/18 diphenhydrAMINE [Benadryl] 25 mg PO QID PRN 07/18/18 07/18/18 Previous Rx's Medication Instructions Recorded Acetaminophen Tab [Tylenol] 650 mg PO Q6HR PRN #30 tab 07/22/18 Amoxic-Pot Clav 875-125Mg 1 tab PO Q12HR #14 tablet 07/22/18 [Augmentin 875-125] Triamcinolone 0.1% Cream [Kenalog 1 applic TOPICAL TID #1 tube 07/22/18 0.1% Cream] Allergies Allergy/AdvReac Type Severity Reaction Status Date / Time No Known Allergies Allergy Verified 07/18/18 17:51 Review of Systems ROS Statement: Those systems with pertinent positive or pertinent negative responses have been documented in the HPI. ROS Other: All systems not noted in ROS Statement are negative. Past Medical History Past Medical History: Asthma, Diabetes Mellitus, GERD/Reflux, Syncope, Thyroid Disorder Additional Past Medical History / Comment(s): Pt recently admitted to [facility] on 07/04/18 with DKA. Pineal gland tumor, gastroporesis. History of Any Multi-Drug Resistant Organisms: MRSA Date of last positivie culture/infection: 03/2014 MDRO Source:: GROIN AREA Past Surgical History: Cholecystectomy Past Anesthesia/Blood Transfusion Reactions: No Reported Reaction Past Psychological History: Anxiety, Depression Smoking Status: Never smoker Past Alcohol Use History: None Reported Past Drug Use History: Marijuana - Past Family History Mother History Unknown: Yes Family Medical History: No Reported History Additional Family Medical History / Comment(s): "heart disease" Father Family Medical History: Diabetes Mellitus Additional Family Medical History / Comment(s): Diabetes type II.; Heart disease General Exam - General Exam Comments Initial Comments: General: The patient is awake and alert, in no distress, and does not appear acutely ill. Eye: Pupils are equal, round and reactive to light, extra-ocular movements are intact. No nystagmus. There is normal conjunctiva bilaterally. No signs of icterus. Ears, nose, mouth and throat: There are moist mucous membranes and no oral lesions. Neck: The neck is supple, there is no tenderness or JVD. Cardiovascular: There is a regular rate and rhythm. No murmur, rub or gallop is appreciated. Respiratory: Lungs are clear to auscultation, respirations are non-labored, breath sounds are equal. No wheezes, stridor, rales, or rhonchi. Gastrointestinal: [Soft, non-distended, non-tender abdomen without masses or organomegaly noted. There is no rebound or guarding present. No CVA tenderness. Bowel sounds are unremarkable. Musculoskeletal: Upon inspection of the great toes bilaterally there is bruising at the IP joint, no abrasion or lacerations. Normal ROM at the IP joint and MTP joint. Strength 5/5. Sensation intact both proximal and distal to injury site. Pain at IP joint. DP pulses equal bilaterally 2+. Capillary refill < 2 seconds. Neurological: A&O x 3. CN II-XII intact, There are no obvious motor or sensory deficits. Coordination appears grossly intact. Speech is normal. Skin: Skin is warm and dry and no rashes or lesions are noted. Psychiatric: Cooperative, appropriate mood & affect, normal judgment. Limitations: no limitations Course Vital Signs 09/15/18 21:30 Temperature 98.6 F Pulse Rate 105 H Respiratory 16 Rate Blood Pressure 139/70 O2 Sat by Pulse 100 Oximetry Medical Decision Making - Medical Decision Making Well-appearing 23-year-old female with history of peripheral neuropathy. Patient does not appear to have redness or warmth of the IP joint of left great toe. However there is a bruise that appears greater than 1 day or old. Patient has +2 dorsalis pedis pulses as well as less than 2 second capillary refill. Sensation intact. Painful at the IP joint. At this time I feel patient most likely a trauma to the toe however on imaging states there is no acute osseous trauma such as fracture. Most likely patient has a toe contusion. Patient will be discharged with rice instruction. As well as use ibuprofen for pain management. Patient is agreeable to plan discharge at this time. I discussed the case with attending providerDr. Clemons who reviewd imaging studies. Disposition Clinical Impression: Pain of left great toe, Contusion of great toe, left Disposition: HOME SELF-CARE Condition: Good Instructions (If sedation given, give patient instructions): Hematoma (ED) Additional Instructions: Please use medication as discussed. Please follow-up with family doctor in the next 2 days.. Please return to emergency room if the symptoms increase or worsen or for any other concerns. Is patient prescribed a controlled substance at d/c from ED?: No Referrals: Deborah Stearns MD [Primary Care Provider] - 1-2 days Time of Disposition: 21:51
== END 2018-09-15 22:31 | disposition home or self-care (01) ==
LOC: EC 21:27
DX: S90.112A Contusion of left great toe without damage to nail, initial encounter (principal); J45.909 Unspecified asthma, uncomplicated; E11.9 Type 2 diabetes mellitus without complications; K21.9 Gastro-esophageal reflux disease without esophagitis; E07.9 Disorder of thyroid, unspecified; F32.9 Major depressive disorder, single episode, unspecified; F41.9 Anxiety disorder, unspecified; Z86.14 Personal history of Methicillin resistant Staphylococcus aureus infection; Z79.4 Long term (current) use of insulin; Z79.890 Hormone replacement therapy; Z79.899 Other long term (current) drug therapy
CPT/HCPCS: 99283

== ENCOUNTER → 2018-09-26 | Outpatient (CLI) | payer OTHER ==
[2018-09-26 10:28] LABS: HCT 43.5 % (34.0-46.0); HGB 13.5 gm/dL (11.4-16.0); MCH 26.6 pg (25.0-35.0); MCHC 31.1 g/dL (31.0-37.0); MCV 85.7 fL (80.0-100.0); Mean Platelet Volume 6.2; Platelet Count 528 k/uL (150-450); RBC 5.08 m/uL (3.80-5.40); RDW 14.5 % (11.5-15.5); WBC 11.1 k/uL (3.8-10.6)
[2018-09-26 18:37] LABS: African American GFR (CKD) 142.5 (60.0-200.0); Albumin 5.1 g/dL (3.80-4.90); Albumin/Globulin Ratio 2.55 (1.60-3.17); Anion Gap 13.8 mmol/L (4.00-12.00); BUN/Creat Ratio 24.29 Ratio (12.00-20.00); Calcium 10.6 mg/dL (8.7-10.3); Carbon Dioxide 27.2 mmol/L (21.6-31.8); LDL Cholesterol,Calculated 60.4 mg/dL (0.0-131.0); Potassium 4.9 mmol/L (3.5-5.5); Total Bilirubin 0.2 mg/dL (0.2-1.2); Total Protein 7.1 g/dL (6.2-8.2); VLDL Calculation 21.6 mg/dL (5.00-40.00)
[2018-09-26 20:58] LABS: Hemoglobin A1C 9.7 % (4.0-6.0)
== END | disposition home or self-care (01) ==
LOC: LABWHC1 10:05
PROVIDERS: ATTEND Nurse Practitioner Family
DX: E10.65 Type 1 diabetes mellitus with hyperglycemia (principal); E03.9 Hypothyroidism, unspecified
CPT/HCPCS: 36415; 80053; 80061; 82043; 82570; 83036; 84436; 84443; 84480; 85027

== ENCOUNTER 2018-11-10 12:33 | Inpatient (IN) | payer OTHER ==
[2018-11-10] MEDS ORDERED: SODIUM CHLORIDE 0.9% 2,000 ML IV ONE (13:04)
[2018-11-10] MEDS ORDERED: ONDANSETRON 4 MG/2 ML VIAL IVP STA (13:18)
--- NOTE | 2018-11-10 13:20 | ED ---
General Adult HPI - General Chief complaint: Nausea/Vomiting/Diarrhea Stated complaint: DKA Time Seen by Provider: 11/10/18 13:02 Source: patient, RN notes reviewed Mode of arrival: wheelchair Limitations: no limitations - History of Present Illness Initial comments: 23-year-old female presents emergency Department chief complaint nausea vomiting DKA. Patient states that his blood sugars have been up and down actually had a couple times over 400. Patient states that primary's been in the 180s 1 and states that she can't stop vomiting states he feels that she is in DKA. Patient states her heart has been racing she cannot keep any fluids down. She has no localized abdominal pain. No headache no dizziness. Patient denies any chest pain. Patient is on insulin sliding scale she does not have a pump. - Related Data Home Medications Medication Instructions Recorded Confirmed Levothyroxine Sodium [Synthroid] 25 mcg PO DAILY 01/03/18 11/10/18 Albuterol Inhaler [Ventolin Hfa 1 - 2 puff INHALATION RT-BID 02/06/18 11/10/18 Inhaler] Cholecalciferol (Vitamin D3) 2,000 unit PO DAILY 02/06/18 11/10/18 [Vitamin D3] Cyclobenzaprine [Flexeril] 10 mg PO BID PRN 02/06/18 11/10/18 Gabapentin [Neurontin] 300 mg PO BID 02/06/18 11/10/18 hydrOXYzine HCL [Atarax] 25 mg PO TID PRN 02/06/18 11/10/18 Ondansetron Odt [Zofran ODT] 8 mg PO Q8HR PRN 05/08/18 11/10/18 Acetaminophen-Codeine 300-30mg 1 tab PO Q6H PRN 07/18/18 11/10/18 [Tylenol w/codeine #3] Fludrocortisone Acetate 0.1 mg PO DAILY 07/18/18 11/10/18 Glucagen Hypo Kit 1 injection SQ DAILY PRN 07/18/18 11/10/18 Insulin Aspart [NovoLOG] See Protocol SQ ACHS 07/18/18 11/10/18 Insulin Glargine,Hum.rec.anlog 10 unit SQ DAILY 07/18/18 11/10/18 [Basaglar Kwikpen U-100] Meclizine [Antivert] 25 mg PO BID PRN 07/18/18 11/10/18 Pantoprazole [Protonix] 40 mg PO DAILY 07/18/18 11/10/18 Pravastatin Sodium [Pravachol] 20 mg PO DAILY 07/18/18 11/10/18 diphenhydrAMINE [Benadryl] 25 mg PO QID PRN 07/18/18 11/10/18 Promethazine [Phenergan] 25 mg PO Q8H PRN 11/10/18 11/10/18 Previous Rx's Medication Instructions Recorded Acetaminophen Tab [Tylenol] 650 mg PO Q6HR PRN #30 tab 07/22/18 Triamcinolone 0.1% Cream [Kenalog 1 applic TOPICAL TID #1 tube 07/22/18 0.1% Cream] Allergies Allergy/AdvReac Type Severity Reaction Status Date / Time No Known Allergies Allergy Verified 11/10/18 13:27 Review of Systems ROS Statement: Those systems with pertinent positive or pertinent negative responses have been documented in the HPI. ROS Other: All systems not noted in ROS Statement are negative. Past Medical History Past Medical History: Asthma, Diabetes Mellitus, GERD/Reflux, Syncope, Thyroid Disorder Additional Past Medical History / Comment(s): Pt recently admitted to [facility] on 07/04/18 with DKA. Pineal gland tumor, gastroporesis. History of Any Multi-Drug Resistant Organisms: MRSA Date of last positivie culture/infection: 03/2014 MDRO Source:: GROIN AREA Past Surgical History: Cholecystectomy Past Anesthesia/Blood Transfusion Reactions: No Reported Reaction Past Psychological History: Anxiety, Depression Smoking Status: Former smoker Past Alcohol Use History: None Reported Past Drug Use History: Marijuana - Past Family History Mother History Unknown: Yes Family Medical History: No Reported History Additional Family Medical History / Comment(s): "heart disease" Father Family Medical History: Diabetes Mellitus Additional Family Medical History / Comment(s): Diabetes type II.; Heart disease General Exam Limitations: no limitations General appearance: alert, in no apparent distress Head exam: Present: atraumatic, normocephalic, normal inspection Eye exam: Present: normal appearance, PERRL, EOMI. Absent: scleral icterus, conjunctival injection, periorbital swelling ENT exam: Present: normal exam, normal oropharynx, mucous membranes moist Neck exam: Present: normal inspection, full ROM. Absent: tenderness, meningismus, lymphadenopathy Respiratory exam: Present: normal lung sounds bilaterally. Absent: respiratory distress, wheezes, rales, rhonchi, stridor Cardiovascular Exam: Present: normal rhythm, tachycardia, normal heart sounds. Absent: systolic murmur, diastolic murmur, rubs, gallop, clicks GI/Abdominal exam: Present: soft, normal bowel sounds. Absent: distended, tenderness, guarding, rebound, rigid Neurological exam: Present: alert, oriented X3, CN II-XII intact Skin exam: Present: warm, dry, intact, normal color. Absent: rash Course Vital Signs 11/10/18 12:56 Temperature 98.1 F Pulse Rate 126 H Respiratory 18 Rate Blood Pressure 100/66 O2 Sat by Pulse 100 Oximetry Medical Decision Making - Medical Decision Making 23-year-old female presented for nausea vomiting or hyperglycemia. Patient will be admitted for DKA. [facility] DKA protocol. - Lab Data Result diagrams: 11/10/18 13:34 11/10/18 13:34 Lab Results 11/10/18 11/10/18 11/10/18 Range/Units 13:34 13:34 13:34 WBC 13.0 H (3.8-10.6) k/uL RBC 5.19 (3.80-5.40) m/uL Hgb 14.1 (11.4-16.0) gm/dL Hct 46.8 H (34.0-46.0) % MCV 90.2 (80.0-100.0) fL MCH 27.2 (25.0-35.0) pg MCHC 30.2 L (31.0-37.0) g/dL RDW 15.5 (11.5-15.5) % Plt Count 663 H (150-450) k/uL Neutrophils % 70 % Lymphocytes % 24 % Monocytes % 4 % Eosinophils % 1 % Basophils % 0 % Neutrophils # 9.1 H (1.3-7.7) k/uL Lymphocytes # 3.1 (1.0-4.8) k/uL Monocytes # 0.5 (0-1.0) k/uL Eosinophils # 0.1 (0-0.7) k/uL Basophils # 0.1 (0-0.2) k/uL Hypochromasia Marked VBG pH (7.31-7.41) VBG pCO2 (37-51) mmHg VBG HCO3 (24-28) mmol/L Sodium 137 (137-145) mmol/L Potassium 5.1 (3.5-5.1) mmol/L Chloride 100 (98-107) mmol/L Carbon Dioxide 10 L (22-30) mmol/L Anion Gap 27 mmol/L BUN 15 (7-17) mg/dL Creatinine 0.57 (0.52-1.04) mg/dL Est GFR (CKD-EPI)AfAm >90 (>60 ml/min/1.73 sqM) Est GFR (CKD-EPI)NonAf >90 (>60 ml/min/1.73 sqM) Glucose 468 H (74-99) mg/dL POC Glucose (mg/dL) (75-99) mg/dL POC Glu Criminology Professor ID Plasma Lactic Acid Ben 2.5 H* (0.7-2.0) mmol/L Calcium 9.5 (8.4-10.2) mg/dL Total Bilirubin 0.7 (0.2-1.3) mg/dL AST 59 H (14-36) U/L ALT 69 H (9-52) U/L Alkaline Phosphatase 237 H (38-126) U/L Total Protein 7.7 (6.3-8.2) g/dL Albumin 4.8 (3.5-5.0) g/dL Acetone, Qual Positive (Negative) 11/10/18 11/10/18 Range/Units 13:34 14:30 WBC (3.8-10.6) k/uL RBC (3.80-5.40) m/uL Hgb (11.4-16.0) gm/dL Hct (34.0-46.0) % MCV (80.0-100.0) fL MCH (25.0-35.0) pg MCHC (31.0-37.0) g/dL RDW (11.5-15.5) % Plt Count (150-450) k/uL Neutrophils % % Lymphocytes % % Monocytes % % Eosinophils % % Basophils % % Neutrophils # (1.3-7.7) k/uL Lymphocytes # (1.0-4.8) k/uL Monocytes # (0-1.0) k/uL Eosinophils # (0-0.7) k/uL Basophils # (0-0.2) k/uL Hypochromasia VBG pH 7.09 L* (7.31-7.41) VBG pCO2 43 (37-51) mmHg VBG HCO3 13 L (24-28) mmol/L Sodium (137-145) mmol/L Potassium (3.5-5.1) mmol/L Chloride (98-107) mmol/L Carbon Dioxide (22-30) mmol/L Anion Gap mmol/L BUN (7-17) mg/dL Creatinine (0.52-1.04) mg/dL Est GFR (CKD-EPI)AfAm (>60 ml/min/1.73 sqM) Est GFR (CKD-EPI)NonAf (>60 ml/min/1.73 sqM) Glucose (74-99) mg/dL POC Glucose (mg/dL) 516 H (75-99) mg/dL POC Glu Criminology Professor ID Aleja Rollins Plasma Lactic Acid Ben (0.7-2.0) mmol/L Calcium (8.4-10.2) mg/dL Total Bilirubin (0.2-1.3) mg/dL AST (14-36) U/L ALT (9-52) U/L Alkaline Phosphatase (38-126) U/L Total Protein (6.3-8.2) g/dL Albumin (3.5-5.0) g/dL Acetone, Qual (Negative) Critical Care Time Critical Care Time: Yes Total Critical Care Time: 35 Critical Care Time: Total 35 minutes of critical care time were used initially evaluated patient, reviewed past medical history, review medications and vitals. Labs including CBC, CMP, lactate, ABG, urinalysis and acetone. Patient's found to have hyperglycemia greater then 400, VBG of 7.09, patient is acetone positive, lactic acidosis. Initial fluid bolus of 2 L were ordered, insulin IV bolus of 5 units along with an insulin drip at 0.1 units per kilogram per hour. Patient was also started DKA protocol. Case discussed with admitting physician. Disposition Clinical Impression: DKA (diabetic ketoacidoses) Disposition: ADMITTED IP TO THIS HOSP Condition: Fair Referrals: Deborah Stearns MD [Primary Care Provider] - 1-2 days
[2018-11-10 13:56] LABS: Basophils # (A) 0.1 k/uL (0-0.2); Basophils % (A) 0 %; Eosinophils # (A) 0.1 k/uL (0-0.7); Eosinophils % (A) 1 %; HCT 46.8 % (34.0-46.0); HGB 14.1 gm/dL (11.4-16.0); Hypochromasia Marked; Lymphocytes # (A) 3.1 k/uL (1.0-4.8); Lymphocytes % (A) 24 %; MCH 27.2 pg (25.0-35.0); MCHC 30.2 g/dL (31.0-37.0); MCV 90.2 fL (80.0-100.0); Mean Platelet Volume 6.7; Monocytes # (A) 0.5 k/uL (0-1.0); Monocytes % (A) 4 %; Neutrophils # (A) 9.1 k/uL (1.3-7.7); Neutrophils % (A) 70 %; Platelet Count 663 k/uL (150-450); RBC 5.19 m/uL (3.80-5.40); RDW 15.5 % (11.5-15.5)
[2018-11-10 14:08] LABS: VBG PH 7.09 (7.31-7.41)
[2018-11-10 14:13] LABS: ALT 69 U/L (9-52); AST 59 U/L (14-36); African American GFR (CKD) >90 (>60 ml/min/1.73 sqM); Albumin 4.8 g/dL (3.5-5.0); Alkaline Phosphatase 237 U/L (38-126); Blood Urea Nitrogen 15 mg/dL (7-17); Calcium 9.5 mg/dL (8.4-10.2); Chloride 100 mmol/L (98-107); Glucose 468 mg/dL (74-99); Potassium 5.1 mmol/L (3.5-5.1); Sodium 137 mmol/L (137-145); Total Bilirubin 0.7 mg/dL (0.2-1.3); Total Protein 7.7 g/dL (6.3-8.2)
[2018-11-10 14:18] LABS: Anion Gap 27 mmol/L; Carbon Dioxide 10 mmol/L (22-30)
[2018-11-10] MEDS ORDERED: INSULIN REGULAR BOLUS (FROM DRIP BAG) IV ONE (14:21)
[2018-11-10] MEDS ORDERED: SODIUM CHLORIDE 0.9% 1,000 ML IV SCH (14:30)
[2018-11-10 14:31] LABS: Glucose,Whole Blood 516 mg/dL (75-99)
[2018-11-10 15:06] LABS: Appearance,Urine Clear (Clear); Bacteria,Urine Occasional /hpf; Bilirubin,Urine Negative (Negative); Blood,Urine Negative (Negative); Color,Urine Light Yellow; Glucose,Urine (UA) 4+ (Negative); Leukocyte Esterase,Urine Trace (Negative); Mucus,Urine Rare /hpf; Nitrite,Urine Negative (Negative); PH, Urine 5.5 (5.0-8.0); Protein,Urine Trace (Negative); RBC,Urine 1 /hpf (0-5); Specific Gravity,Urine 1.021 (1.001-1.035); Squamous Epithelial Cell,Urine 5 /hpf (0-4); Urobilinogen,Urine <2.0 mg/dL (<2.0)
[2018-11-10 15:09] LABS: Ketones,Urine 4+ (Negative)
[2018-11-10] MEDS: INSULIN REGULAR 100 UNIT in SODIUM CHLORIDE 0.9% 100 ML IV SCH (15:25)
[2018-11-10 15:56] LABS: Glucose,Whole Blood 498 mg/dL (75-99)
[2018-11-10 16:31] LABS: Glucose,Whole Blood 417 mg/dL (75-99)
[2018-11-10 17:24] LABS: Glucose,Whole Blood 453 mg/dL (75-99)
[2018-11-10 18:33] LABS: Glucose,Whole Blood 425 mg/dL (75-99)
[2018-11-10 19:03] LABS: African American GFR (CKD) >90 (>60 ml/min/1.73 sqM); Blood Urea Nitrogen 13 mg/dL (7-17); Chloride 110 mmol/L (98-107); Glucose 321 mg/dL (74-99); Phosphorus 4.6 mg/dL (2.5-4.5); Potassium 4.9 mmol/L (3.5-5.1); Sodium 143 mmol/L (137-145)
[2018-11-10 19:05] LABS: Carbon Dioxide <5 mmol/L (22-30)
[2018-11-10] MEDS ORDERED: ACETAMINOPHEN TAB 325 MG TAB PO PRN (19:41)
[2018-11-10] MEDS: D5-0.45% NACL WITH KCL 20MEQ/L 1,000 ML IV SCH (19:45)
[2018-11-10] MEDS ORDERED: PROMETHAZINE 25 MG TAB PO PRN (19:51)
[2018-11-10] MEDS ORDERED: hydrOXYzine HCL 25 MG TAB PO PRN (19:51)
[2018-11-10] MEDS ORDERED: MECLIZINE 25 MG TAB PO PRN (19:51)
[2018-11-10 19:56] LABS: Glucose,Whole Blood 252 mg/dL (75-99)
[2018-11-10] MEDS ORDERED: ONDANSETRON ODT 8 MG TAB.RAPDIS PO PRN (19:58)
[2018-11-10] MEDS ORDERED: LOPERAMIDE 2 MG CAP PO PRN (20:03)
[2018-11-10 20:23] LABS: Glucose,Whole Blood 131 mg/dL (75-99)
[2018-11-10] MEDS: GABAPENTIN 300 MG CAP PO SCH (20:30)
[2018-11-10] MEDS: PANTOPRAZOLE 40 MG TABLET PO SCH (20:30)
[2018-11-10 21:04] LABS: Glucose,Whole Blood 91 mg/dL (75-99)
[2018-11-10 21:46] LABS: Glucose,Whole Blood 105 mg/dL (75-99)
[2018-11-10 22:57] LABS: African American GFR (CKD) >90 (>60 ml/min/1.73 sqM); Anion Gap 19 mmol/L; Blood Urea Nitrogen 11 mg/dL (7-17); Calcium 9.3 mg/dL (8.4-10.2); Carbon Dioxide 11 mmol/L (22-30); Chloride 107 mmol/L (98-107); Glucose 186 mg/dL (74-99); Phosphorus 3.3 mg/dL (2.5-4.5); Potassium 4.3 mmol/L (3.5-5.1); Sodium 137 mmol/L (137-145)
[2018-11-10 23:14] LABS: Glucose,Whole Blood 200 mg/dL (75-99)
[2018-11-11 00:21] LABS: Glucose,Whole Blood 195 mg/dL (75-99)
[2018-11-11 01:32] LABS: Glucose,Whole Blood 138 mg/dL (75-99)
[2018-11-11] MEDS: D5-0.45% NACL WITH KCL 20MEQ/L 1,000 ML IV SCH ×2 (02:00→08:53)
[2018-11-11] MEDS: ONDANSETRON 4 MG/2 ML VIAL IVP PRN ×4 (02:13→23:38)
[2018-11-11 02:29] LABS: Glucose,Whole Blood 142 mg/dL (75-99)
[2018-11-11 05:34] LABS: Glucose,Whole Blood 326 mg/dL (75-99)
[2018-11-11 05:34] LABS: Glucose,Whole Blood 296 mg/dL (75-99)
[2018-11-11 05:35] LABS: African American GFR (CKD) >90 (>60 ml/min/1.73 sqM); Anion Gap 18 mmol/L; Blood Urea Nitrogen 9 mg/dL (7-17); Calcium 9.1 mg/dL (8.4-10.2); Carbon Dioxide 11 mmol/L (22-30); Chloride 105 mmol/L (98-107); Glucose 259 mg/dL (74-99); Phosphorus 3.1 mg/dL (2.5-4.5); Potassium 4.9 mmol/L (3.5-5.1); Sodium 134 mmol/L (137-145)
[2018-11-11 05:50] LABS: Glucose,Whole Blood 278 mg/dL (75-99)
[2018-11-11] MEDS: LEVOTHYROXINE 25 MCG TAB PO SCH (06:19)
[2018-11-11] MEDS: PANTOPRAZOLE 40 MG TABLET PO SCH (06:19)
[2018-11-11 06:35] LABS: Glucose,Whole Blood 191 mg/dL (75-99)
[2018-11-11 07:35] LABS: Glucose,Whole Blood 148 mg/dL (75-99)
[2018-11-11 07:49] LABS: African American GFR (CKD) >90 (>60 ml/min/1.73 sqM); Anion Gap 18 mmol/L; Blood Urea Nitrogen 8 mg/dL (7-17); Carbon Dioxide 13 mmol/L (22-30); Chloride 107 mmol/L (98-107); Glucose 148 mg/dL (74-99); Sodium 138 mmol/L (137-145)
[2018-11-11 08:33] LABS: Glucose,Whole Blood 174 mg/dL (75-99)
--- NOTE | 2018-11-11 08:58 | P.HPIM ---
History of Present Illness Patient is a pleasant 23-year-old female came in with compensative nausea vomiting was started couple days ago patient is found to be in DKA with high anion gap and blood sugars going up to 400s patient has multiple other medical problems including low Danlos, syringomyelia,Arnold - chiari malformation along with diabetic gastroparesis. She is still nauseous and but feels much better still remains on IV insulin at this time. electrolyte imbalances are better today. Patient is presently getting potassium chloride with the D5 half-normal saline and IV insulin since her potassium is 5.0 or discontinue potassium supplementation and IV bag. Review of Systems REVIEW OF SYSTEMS: CONSTITUTIONAL: No fever, no malaise, no fatigue. HEENT: No recent visual problems or hearing problems. Denied any sore throat. CARDIOVASCULAR: No chest pain, orthopnea, PND, no palpitations, no syncope. PULMONARY: No shortness of breath, no cough, no hemoptysis. GASTROINTESTINAL: No diarrhea. NEUROLOGICAL: No headaches, no weakness, no numbness. HEMATOLOGICAL: Denies any bleeding or petechiae. GENITOURINARY: Denies any burning micturition, frequency, or urgency. MUSCULOSKELETAL/RHEUMATOLOGICAL: Denies any joint pain, swelling, or any muscle pain. ENDOCRINE: Denies any polyuria or polydipsia. The rest of the 14-point review of systems is negative. Past Medical History Past Medical History: Asthma, Diabetes Mellitus, GERD/Reflux, Syncope, Thyroid Disorder Additional Past Medical History / Comment(s): Pt recently admitted to [facility] on 07/04/18 with DKA. r, gastroporesis. Chiari malformation with ceringomyelia, kyphoscoliosis, EDS ehler danlows syndrome. History of Any Multi-Drug Resistant Organisms: MRSA Date of last positivie culture/infection: 03/2014 MDRO Source:: GROIN AREA Past Surgical History: Cholecystectomy Past Anesthesia/Blood Transfusion Reactions: No Reported Reaction Past Psychological History: Anxiety, Depression Additional Psychological History / Comment(s): Pt resides with her mother. She is independent. has difficulties with recurrent diabetic ketoacidosis. No animals in the home. No experience. No international travel Smoking Status: Former smoker Past Alcohol Use History: None Reported Additional Past Alcohol Use History / Comment(s): Pt states she smokes very lightly, a pack of cigarettes can last 2-4 weeks. Past Drug Use History: Marijuana Additional Drug Use History / Comment(s): occasional marijuana use for pain mgt - Past Family History Mother History Unknown: Yes Family Medical History: No Reported History Additional Family Medical History / Comment(s): "heart disease" Father Family Medical History: Diabetes Mellitus Additional Family Medical History / Comment(s): Diabetes type II.; Heart disease Medications and Allergies Home Medications Medication Instructions Recorded Confirmed Type Levothyroxine Sodium [Synthroid] 25 mcg PO DAILY 01/03/18 11/10/18 History Albuterol Inhaler [Ventolin Hfa 1 - 2 puff INHALATION RT-BID 02/06/18 11/10/18 History Inhaler] Cholecalciferol (Vitamin D3) 2,000 unit PO DAILY 02/06/18 11/10/18 History [Vitamin D3] Cyclobenzaprine [Flexeril] 10 mg PO BID PRN 02/06/18 11/10/18 History Gabapentin [Neurontin] 300 mg PO BID 02/06/18 11/10/18 History hydrOXYzine HCL [Atarax] 25 mg PO TID PRN 02/06/18 11/10/18 History Ondansetron Odt [Zofran ODT] 8 mg PO Q8HR PRN 05/08/18 11/10/18 History Acetaminophen-Codeine 300-30mg 1 tab PO Q6H PRN 07/18/18 11/10/18 History [Tylenol w/codeine #3] Fludrocortisone Acetate 0.1 mg PO DAILY 07/18/18 11/10/18 History Glucagen Hypo Kit 1 injection SQ DAILY PRN 07/18/18 11/10/18 History Insulin Aspart [NovoLOG] See Protocol SQ ACHS 07/18/18 11/10/18 History Insulin Glargine,Hum.rec.anlog 10 unit SQ DAILY 07/18/18 11/10/18 History [Basaglar Kwikpen U-100] Meclizine [Antivert] 25 mg PO BID PRN 07/18/18 11/10/18 History Pantoprazole [Protonix] 40 mg PO DAILY 07/18/18 11/10/18 History Pravastatin Sodium [Pravachol] 20 mg PO DAILY 07/18/18 11/10/18 History diphenhydrAMINE [Benadryl] 25 mg PO QID PRN 07/18/18 11/10/18 History Acetaminophen Tab [Tylenol] 650 mg PO Q6HR PRN #30 tab 07/22/18 11/10/18 Rx Triamcinolone 0.1% Cream [Kenalog 1 applic TOPICAL TID #1 tube 07/22/18 11/10/18 Rx 0.1% Cream] Promethazine [Phenergan] 25 mg PO Q8H PRN 11/10/18 11/10/18 History Allergies Allergy/AdvReac Type Severity Reaction Status Date / Time No Known Allergies Allergy Verified 11/10/18 13:27 Physical Exam Vitals: Vital Signs Temp Pulse Pulse Resp BP BP Pulse Ox 11/11/18 07:48 119 H 11/11/18 07:44 98.5 F 119 H 17 123/75 11/11/18 04:00 126 H 18 133/80 100 11/11/18 00:00 124 H 18 137/82 100 11/10/18 20:00 98.7 F 131 H 18 121/78 100 11/10/18 17:33 98.1 F 140 H 18 157/96 100 11/10/18 17:30 99.2 F 130 H 20 119/74 11/10/18 16:33 131 H 19 111/70 11/10/18 15:59 99.4 F 144 H 23 127/86 100 11/10/18 14:00 22 11/10/18 12:56 98.1 F 126 H 18 100/66 100 Intake and Output 11/10/18 11/11/18 11/11/18 22:59 06:59 14:59 Intake Total 31.571 14.813 2.728 Output Total 200 200 Balance -168.429 -185.187 2.728 Intake: Intake, IV Titration 31.571 14.813 2.728 Amount Insulin Regular 100 unit 31.571 14.813 2.728 In Sodium Chloride 0.9% 100 ml @ 0.1 UNITS/KG/HR 5.727 mls/hr IV .[id number] [facility] Rx#:[id number] Output: Emesis 200 200 Other: Voiding Method Toilet PHYSICAL EXAMINATION: GENERAL: The patient is alert and oriented x3, not in any acute distress. Well developed, well nourished. HEENT: Pupils are round and equally reacting to light. EOMI. No scleral icterus. No conjunctival pallor. Normocephalic, atraumatic. No pharyngeal erythema. No thyromegaly. CARDIOVASCULAR: S1 and S2 present. No murmurs, rubs, or gallops. His tachy cardic loud heart sounds PULMONARY: Chest is clear to auscultation, no wheezing or crackles. ABDOMEN: Soft, nontender, nondistended, normoactive bowel sounds. No palpable organomegaly. MUSCULOSKELETAL: No joint swelling or deformity. EXTREMITIES: No cyanosis, clubbing, or pedal edema. NEUROLOGICAL: Gross neurological examination did not reveal any focal deficits. SKIN: No rashes. Results CBC & Chem 7: 11/10/18 13:34 11/11/18 07:05 Labs: Abnormal Lab Results - Last 24 Hours (Table) 11/10/18 11/10/18 11/10/18 Range/Units 13:34 13:34 13:34 WBC 13.0 H (3.8-10.6) k/uL Hct 46.8 H (34.0-46.0) % MCHC 30.2 L (31.0-37.0) g/dL Plt Count 663 H (150-450) k/uL Neutrophils # 9.1 H (1.3-7.7) k/uL VBG pH (7.31-7.41) VBG HCO3 (24-28) mmol/L Sodium (137-145) mmol/L Chloride (98-107) mmol/L Carbon Dioxide 10 L (22-30) mmol/L Creatinine (0.52-1.04) mg/dL Glucose 468 H (74-99) mg/dL POC Glucose (mg/dL) (75-99) mg/dL Plasma Lactic Acid Ben 2.5 H* (0.7-2.0) mmol/L Phosphorus (2.5-4.5) mg/dL AST 59 H (14-36) U/L ALT 69 H (9-52) U/L Alkaline Phosphatase 237 H (38-126) U/L Urine Protein (Negative) Urine Glucose (UA) (Negative) Urine Ketones (Negative) Ur Leukocyte Esterase (Negative) Ur Squamous Epith Cells (0-4) /hpf Urine Bacteria (None) /hpf Urine Mucus (None) /hpf 11/10/18 11/10/18 11/10/18 Range/Units 13:34 14:30 14:45 WBC (3.8-10.6) k/uL Hct (34.0-46.0) % MCHC (31.0-37.0) g/dL Plt Count (150-450) k/uL Neutrophils # (1.3-7.7) k/uL VBG pH 7.09 L* (7.31-7.41) VBG HCO3 13 L (24-28) mmol/L Sodium (137-145) mmol/L Chloride (98-107) mmol/L Carbon Dioxide (22-30) mmol/L Creatinine (0.52-1.04) mg/dL Glucose (74-99) mg/dL POC Glucose (mg/dL) 516 H (75-99) mg/dL Plasma Lactic Acid Ben (0.7-2.0) mmol/L Phosphorus (2.5-4.5) mg/dL AST (14-36) U/L ALT (9-52) U/L Alkaline Phosphatase (38-126) U/L Urine Protein Trace H (Negative) Urine Glucose (UA) 4+ H (Negative) Urine Ketones 4+ H (Negative) Ur Leukocyte Esterase Trace H (Negative) Ur Squamous Epith Cells 5 H (0-4) /hpf Urine Bacteria Occasional H (None) /hpf Urine Mucus Rare H (None) /hpf 11/10/18 11/10/18 11/10/18 Range/Units 15:54 16:29 17:22 WBC (3.8-10.6) k/uL Hct (34.0-46.0) % MCHC (31.0-37.0) g/dL Plt Count (150-450) k/uL Neutrophils # (1.3-7.7) k/uL VBG pH (7.31-7.41) VBG HCO3 (24-28) mmol/L Sodium (137-145) mmol/L Chloride (98-107) mmol/L Carbon Dioxide (22-30) mmol/L Creatinine (0.52-1.04) mg/dL Glucose (74-99) mg/dL POC Glucose (mg/dL) 498 H 417 H 453 H (75-99) mg/dL Plasma Lactic Acid Ben (0.7-2.0) mmol/L Phosphorus (2.5-4.5) mg/dL AST (14-36) U/L ALT (9-52) U/L Alkaline Phosphatase (38-126) U/L Urine Protein (Negative) Urine Glucose (UA) (Negative) Urine Ketones (Negative) Ur Leukocyte Esterase (Negative) Ur Squamous Epith Cells (0-4) /hpf Urine Bacteria (None) /hpf Urine Mucus (None) /hpf 11/10/18 11/10/18 11/10/18 Range/Units 18:13 18:34 19:11 WBC (3.8-10.6) k/uL Hct (34.0-46.0) % MCHC (31.0-37.0) g/dL Plt Count (150-450) k/uL Neutrophils # (1.3-7.7) k/uL VBG pH (7.31-7.41) VBG HCO3 (24-28) mmol/L Sodium (137-145) mmol/L Chloride 110 H (98-107) mmol/L Carbon Dioxide <5 L* (22-30) mmol/L Creatinine (0.52-1.04) mg/dL Glucose 321 H (74-99) mg/dL POC Glucose (mg/dL) 425 H 252 H (75-99) mg/dL Plasma Lactic Acid Ben (0.7-2.0) mmol/L Phosphorus 4.6 H (2.5-4.5) mg/dL AST (14-36) U/L ALT (9-52) U/L Alkaline Phosphatase (38-126) U/L Urine Protein (Negative) Urine Glucose (UA) (Negative) Urine Ketones (Negative) Ur Leukocyte Esterase (Negative) Ur Squamous Epith Cells (0-4) /hpf Urine Bacteria (None) /hpf Urine Mucus (None) /hpf 11/10/18 11/10/18 11/10/18 Range/Units 20:03 21:42 22:33 WBC (3.8-10.6) k/uL Hct (34.0-46.0) % MCHC (31.0-37.0) g/dL Plt Count (150-450) k/uL Neutrophils # (1.3-7.7) k/uL VBG pH (7.31-7.41) VBG HCO3 (24-28) mmol/L Sodium (137-145) mmol/L Chloride (98-107) mmol/L Carbon Dioxide 11 L (22-30) mmol/L Creatinine 0.50 L (0.52-1.04) mg/dL Glucose 186 H (74-99) mg/dL POC Glucose (mg/dL) 131 H 105 H (75-99) mg/dL Plasma Lactic Acid Ben (0.7-2.0) mmol/L Phosphorus (2.5-4.5) mg/dL AST (14-36) U/L ALT (9-52) U/L Alkaline Phosphatase (38-126) U/L Urine Protein (Negative) Urine Glucose (UA) (Negative) Urine Ketones (Negative) Ur Leukocyte Esterase (Negative) Ur Squamous Epith Cells (0-4) /hpf Urine Bacteria (None) /hpf Urine Mucus (None) /hpf 11/10/18 11/11/18 11/11/18 Range/Units 23:10 00:10 01:13 WBC (3.8-10.6) k/uL Hct (34.0-46.0) % MCHC (31.0-37.0) g/dL Plt Count (150-450) k/uL Neutrophils # (1.3-7.7) k/uL VBG pH (7.31-7.41) VBG HCO3 (24-28) mmol/L Sodium (137-145) mmol/L Chloride (98-107) mmol/L Carbon Dioxide (22-30) mmol/L Creatinine (0.52-1.04) mg/dL Glucose (74-99) mg/dL POC Glucose (mg/dL) 200 H 195 H 138 H (75-99) mg/dL Plasma Lactic Acid Ben (0.7-2.0) mmol/L Phosphorus (2.5-4.5) mg/dL AST (14-36) U/L ALT (9-52) U/L Alkaline Phosphatase (38-126) U/L Urine Protein (Negative) Urine Glucose (UA) (Negative) Urine Ketones (Negative) Ur Leukocyte Esterase (Negative) Ur Squamous Epith Cells (0-4) /hpf Urine Bacteria (None) /hpf Urine Mucus (None) /hpf 08/11/11/18 11/11/18 Range/Units 02:09 02:52 03:35 WBC (3.8-10.6) k/uL Hct (34.0-46.0) % MCHC (31.0-37.0) g/dL Plt Count (150-450) k/uL Neutrophils # (1.3-7.7) k/uL VBG pH (7.31-7.41) VBG HCO3 (24-28) mmol/L Sodium 134 L (137-145) mmol/L Chloride (98-107) mmol/L Carbon Dioxide 11 L (22-30) mmol/L Creatinine 0.41 L (0.52-1.04) mg/dL Glucose 259 H (74-99) mg/dL POC Glucose (mg/dL) 142 H 296 H (75-99) mg/dL Plasma Lactic Acid Ben (0.7-2.0) mmol/L Phosphorus (2.5-4.5) mg/dL AST (14-36) U/L ALT (9-52) U/L Alkaline Phosphatase (38-126) U/L Urine Protein (Negative) Urine Glucose (UA) (Negative) Urine Ketones (Negative) Ur Leukocyte Esterase (Negative) Ur Squamous Epith Cells (0-4) /hpf Urine Bacteria (None) /hpf Urine Mucus (None) /hpf 11/11/18 11/11/18 11/11/18 Range/Units 04:32 05:29 06:34 WBC (3.8-10.6) k/uL Hct (34.0-46.0) % MCHC (31.0-37.0) g/dL Plt Count (150-450) k/uL Neutrophils # (1.3-7.7) k/uL VBG pH (7.31-7.41) VBG HCO3 (24-28) mmol/L Sodium (137-145) mmol/L Chloride (98-107) mmol/L Carbon Dioxide (22-30) mmol/L Creatinine (0.52-1.04) mg/dL Glucose (74-99) mg/dL POC Glucose (mg/dL) 326 H 278 H 191 H (75-99) mg/dL Plasma Lactic Acid Ben (0.7-2.0) mmol/L Phosphorus (2.5-4.5) mg/dL AST (14-36) U/L ALT (9-52) U/L Alkaline Phosphatase (38-126) U/L Urine Protein (Negative) Urine Glucose (UA) (Negative) Urine Ketones (Negative) Ur Leukocyte Esterase (Negative) Ur Squamous Epith Cells (0-4) /hpf Urine Bacteria (None) /hpf Urine Mucus (None) /hpf 11/11/18 11/11/18 11/11/18 Range/Units 07:05 07:30 08:29 WBC (3.8-10.6) k/uL Hct (34.0-46.0) % MCHC (31.0-37.0) g/dL Plt Count (150-450) k/uL Neutrophils # (1.3-7.7) k/uL VBG pH (7.31-7.41) VBG HCO3 (24-28) mmol/L Sodium (137-145) mmol/L Chloride (98-107) mmol/L Carbon Dioxide 13 L (22-30) mmol/L Creatinine 0.51 L (0.52-1.04) mg/dL Glucose 148 H (74-99) mg/dL POC Glucose (mg/dL) 148 H 174 H (75-99) mg/dL Plasma Lactic Acid Ben (0.7-2.0) mmol/L Phosphorus (2.5-4.5) mg/dL AST (14-36) U/L ALT (9-52) U/L Alkaline Phosphatase (38-126) U/L Urine Protein (Negative) Urine Glucose (UA) (Negative) Urine Ketones (Negative) Ur Leukocyte Esterase (Negative) Ur Squamous Epith Cells (0-4) /hpf Urine Bacteria (None) /hpf Urine Mucus (None) /hpf Thrombosis Risk Factor Assmnt - Choose All That Apply Any of the Below Risk Factors Present?: No Other Risk Factors: No Thrombosis Risk Factor Assessment Level: Very Low Risk Assessment and Plan Plan: -Diabetic ketoacidosis: Patient will be continued on protocol was anion gap was also started on my subcutaneous long-acting insulin along with pre-meal with carb counting. Patient will be switched to IV normal saline. -Hyponatremia pseudohyponatremia from hyperglycemia which improved now -Diabetic gastroparesis and diabetic autonomic dysfunction and possible peripheral neuropathy: Symptomatic treatment for these -Hypothyroidism -Type 1 diabetes mellitus -Hypothyroidism -Anxiety disorder -Depression -History of Arnold-chiari malformation -History of regular Danlos syndrome. For above-mentioned chronic medical problems patient will be resumed on appropri ate home medications
[2018-11-11 09:37] LABS: Glucose,Whole Blood 165 mg/dL (75-99)
[2018-11-11 10:51] LABS: Glucose,Whole Blood 143 mg/dL (75-99)
--- NOTE | 2018-11-11 11:09 | P.CRDCN ---
History of Present Illness Consult date: 11/11/18 Requesting physician: Karina Teran Reason for Consult (text): Tachycardia Chief complaint: Nausea and vomiting History of present illness: This is a 23-year-old female with history of diabetes, hypothyroidism, Chiari malformation, who presented to the hospital with nausea and vomiting, was found to be in DKA. She states that her blood sugars have been up and down, couplets time she noticed him to be over 400. She denies any abdominal discomfort, no chest discomfort, no palpitations. She does occasionally get headaches when she is in a bright light but at this time denies any headaches or dizziness. Her EKG on presentation here showed a sinus tachycardia with a heart rate of 140. Blood pressure 132/80 with a heart rate of 1:30, 100% on room air. White blood cell count 13.0, hemoglobin 14, platelet count 663. PH on arrival 7.09, pCO2 43 HCO3 13. Lab data on arrival here, sodium 143, potassium 4.9, carbon dioxide less than 5, BUN 13, creatinine 0.6. Blood glucose 428, plasma lactic acid 2.5 . This morning's labs, sodium 138, potassium 5.0, BUN 8 and creatinine 0.5. AST 59, ALT 69, alk phos 237. At the time of my examination this morning, the patient is resting comfortably in bed, she denies any palpitations, still complaining of some mild nausea. No abdominal discomfort. Past Medical History Past Medical History: Asthma, Diabetes Mellitus, GERD/Reflux, Syncope, Thyroid Disorder Additional Past Medical History / Comment(s): Pt recently admitted to [facility] on 07/04/18 with DKA. r, gastroporesis. Chiari malformation with ceringomyelia, kyphoscoliosis, EDS ehler danlows syndrome. History of Any Multi-Drug Resistant Organisms: MRSA Date of last positivie culture/infection: 03/2014 MDRO Source:: [facility] Past Surgical History: Cholecystectomy Past Anesthesia/Blood Transfusion Reactions: No Reported Reaction Past Psychological History: Anxiety, Depression Additional Psychological History / Comment(s): Pt resides with her mother. She is independent. has difficulties with recurrent diabetic ketoacidosis. No animals in the home. No experience. No international travel Smoking Status: Former smoker Past Alcohol Use History: None Reported Additional Past Alcohol Use History / Comment(s): Pt states she smokes very lightly, a pack of cigarettes can last 2-4 weeks. Past Drug Use History: Marijuana Additional Drug Use History / Comment(s): occasional marijuana use for pain mgt - Past Family History Mother History Unknown: Yes Family Medical History: No Reported History Additional Family Medical History / Comment(s): "heart disease" Father Family Medical History: Diabetes Mellitus Additional Family Medical History / Comment(s): Diabetes type II.; Heart disease Medications and Allergies Home Medications Medication Instructions Recorded Confirmed Type Levothyroxine Sodium [Synthroid] 25 mcg PO DAILY 01/03/18 11/10/18 History Albuterol Inhaler [Ventolin Hfa 1 - 2 puff INHALATION RT-BID 02/06/18 11/10/18 History Inhaler] Cholecalciferol (Vitamin D3) 2,000 unit PO DAILY 02/06/18 11/10/18 History [Vitamin D3] Cyclobenzaprine [Flexeril] 10 mg PO BID PRN 02/06/18 11/10/18 History Gabapentin [Neurontin] 300 mg PO BID 02/06/18 11/10/18 History hydrOXYzine HCL [Atarax] 25 mg PO TID PRN 02/06/18 11/10/18 History Ondansetron Odt [Zofran ODT] 8 mg PO Q8HR PRN 05/08/18 11/10/18 History Acetaminophen-Codeine 300-30mg 1 tab PO Q6H PRN 07/18/18 11/10/18 History [Tylenol w/codeine #3] Fludrocortisone Acetate 0.1 mg PO DAILY 07/18/18 11/10/18 History Glucagen Hypo Kit 1 injection SQ DAILY PRN 07/18/18 11/10/18 History Insulin Aspart [NovoLOG] See Protocol SQ ACHS 07/18/18 11/10/18 History Insulin Glargine,Hum.rec.anlog 10 unit SQ DAILY 07/18/18 11/10/18 History [Basaglar Kwikpen U-100] Meclizine [Antivert] 25 mg PO BID PRN 07/18/18 11/10/18 History Pantoprazole [Protonix] 40 mg PO DAILY 07/18/18 11/10/18 History Pravastatin Sodium [Pravachol] 20 mg PO DAILY 07/18/18 11/10/18 History diphenhydrAMINE [Benadryl] 25 mg PO QID PRN 07/18/18 11/10/18 History Acetaminophen Tab [Tylenol] 650 mg PO Q6HR PRN #30 tab 07/22/18 11/10/18 Rx Triamcinolone 0.1% Cream [Kenalog 1 applic TOPICAL TID #1 tube 07/22/18 11/10/18 Rx 0.1% Cream] Promethazine [Phenergan] 25 mg PO Q8H PRN 11/10/18 11/10/18 History Allergies Allergy/AdvReac Type Severity Reaction Status Date / Time No Known Allergies Allergy Verified 11/10/18 13:27 Physical Exam Vitals: Vital Signs Temp Pulse Pulse Resp BP BP Pulse Ox 11/11/18 08:00 119 H 11/11/18 07:48 119 H 11/11/18 07:44 98.5 F 119 H 17 123/75 11/11/18 04:00 126 H 18 133/80 100 11/11/18 00:00 124 H 18 137/82 100 11/10/18 20:00 98.7 F 131 H 18 121/78 100 11/10/18 17:33 98.1 F 140 H 18 157/96 100 11/10/18 17:30 99.2 F 130 H 20 119/74 11/10/18 16:33 131 H 19 111/70 11/10/18 15:59 99.4 F 144 H 23 127/86 100 11/10/18 14:00 22 11/10/18 12:56 98.1 F 126 H 18 100/66 100 Intake and Output 11/10/18 11/11/18 11/11/18 22:59 06:59 14:59 Intake Total 31.571 14.813 8.369 Output Total 200 200 Balance -168.429 -185.187 8.369 Intake: Intake, IV Titration 31.571 14.813 8.369 Amount Insulin Regular 100 unit 31.571 14.813 8.369 In Sodium Chloride 0.9% 100 ml @ 0.1 UNITS/KG/HR 5.727 mls/hr IV .[id number] [facility] Rx#:[id number] Output: Emesis 200 200 Other: Voiding Method Toilet PHYSICAL EXAMINATION: GENERAL: 23-year-old female in no acute distress at the time of my examination HEENT: Head is atraumatic, normocephalic. Pupils equal, round. Sclera anicteric. Conjunctiva are clear. Mucous membranes of the mouth are moist. Neck is supple. There is no elevated jugular venous pressure. No carotid bruit is heard. HEART EXAMINATION: Heart S1 and S2 tachycardic, systolic murmur heard CHEST EXAMINATION: Lungs are clear to auscultation and precussion. No chest wall tenderness is noted on palpation or with deep breathing. ABDOMEN: Soft, nontender. Bowel sounds are heard. No organomegaly noted. EXTREMITIES: 2+ peripheral pulses with no evidence of peripheral edema and no calf tenderness noted. NEUROLOGIC patient is awake, alert and oriented 3 . . Results 11/10/18 13:34 11/11/18 07:05 Cardiac Enzymes 11/10/18 Range/Units 13:34 AST 59 H (14-36) U/L CBC 11/10/18 Range/Units 13:34 WBC 13.0 H (3.8-10.6) k/uL RBC 5.19 (3.80-5.40) m/uL Hgb 14.1 (11.4-16.0) gm/dL Hct 46.8 H (34.0-46.0) % Plt Count 663 H (150-450) k/uL Comprehensive Metabolic Panel 11/10/18 11/10/18 11/10/18 Range/Units 13:34 18:34 22:33 Sodium 137 143 137 (137-145) mmol/L Potassium 5.1 4.9 4.3 (3.5-5.1) mmol/L Chloride 100 110 H 107 (98-107) mmol/L Carbon Dioxide 10 L <5 L* 11 L (22-30) mmol/L BUN 15 13 11 (7-17) mg/dL Creatinine 0.57 0.63 0.50 L (0.52-1.04) mg/dL Glucose 468 H 321 H 186 H (74-99) mg/dL Calcium 9.5 9.3 (8.4-10.2) mg/dL AST 59 H (14-36) U/L ALT 69 H (9-52) U/L Alkaline Phosphatase 237 H (38-126) U/L Total Protein 7.7 (6.3-8.2) g/dL Albumin 4.8 (3.5-5.0) g/dL 11/11/18 11/11/18 Range/Units 02:52 07:05 Sodium 134 L 138 (137-145) mmol/L Potassium 4.9 5.0 (3.5-5.1) mmol/L Chloride 105 107 (98-107) mmol/L Carbon Dioxide 11 L 13 L (22-30) mmol/L BUN 9 8 (7-17) mg/dL Creatinine 0.41 L 0.51 L (0.52-1.04) mg/dL Glucose 259 H 148 H (74-99) mg/dL Calcium 9.1 10.0 (8.4-10.2) mg/dL AST (14-36) U/L ALT (9-52) U/L Alkaline Phosphatase (38-126) U/L Total Protein (6.3-8.2) g/dL Albumin (3.5-5.0) g/dL Current Medications Generic Name Dose Route Start Last Admin Trade Name Freq PRN Reason Stop Dose Admin Acetaminophen 650 mg 11/10/18 19:41 Tylenol Tab PO Q6HR PRN Mild Pain or Fever > 100.5 Acetaminophen/Codeine Phosphate 1 each 11/10/18 19:41 Tylenol #3 PO Q6H PRN Pain Cholecalciferol 2,000 unit 11/11/18 09:00 Vitamin D3 (25 Mcg = 1000 Iu) PO DAILY [facility] Fludrocortisone Acetate 0.1 mg 11/11/18 09:00 Florinef PO DAILY [facility] Gabapentin 300 mg 11/10/18 21:00 11/10/18 20:30 Neurontin PO 300 mg BID JAMAL Administration Insulin Human Regular 100 unit 101 mls @ 5.727 mls/hr 11/10/18 14:30 11/11/18 10:52 / Sodium Chloride IV 0.015 units/kg/hr .[id number] JAMAL 0.859 mls/hr Titration Protocol 0.1 UNITS/KG/HR Dextrose/Sodium Chloride 1,000 mls @ 150 mls/hr 11/11/18 09:45 Dextrose 5%-1/2ns Iv Soln IV .[id number] [facility] Levothyroxine Sodium 25 mcg 11/11/18 06:30 08/28/19 06:19 Synthroid PO Not Given DAILY@0630 [facility] Loperamide HCl 2 mg 11/10/18 20:03 Imodium PO QID PRN Diarrhea Meclizine HCl 25 mg 11/10/18 19:51 Antivert PO BID PRN dizziness Ondansetron HCl 4 mg 11/11/18 00:11 11/11/18 02:13 Zofran IVP 4 mg Q6HR PRN Administration Nausea And Vomiting Pantoprazole Sodium 40 mg 11/10/18 20:00 11/11/18 06:19 Protonix PO Not Given [id number] [facility] Pravastatin Sodium 20 mg 11/11/18 09:00 Pravachol PO DAILY [facility] Promethazine HCl 25 mg 11/10/18 19:51 Phenergan PO Q8H PRN Nausea Intake and Output 11/10/18 11/11/18 11/11/18 22:59 06:59 14:59 Intake Total 31.571 14.813 8.369 Output Total 200 200 Balance -168.429 -185.187 8.369 Intake: Intake, IV Titration 31.571 14.813 8.369 Amount Insulin Regular 100 unit 31.571 14.813 8.369 In Sodium Chloride 0.9% 100 ml @ 0.1 UNITS/KG/HR 5.727 mls/hr IV .[id number] [facility] Rx#:[id number] Output: Emesis 200 200 Other: Voiding Method Toilet 11/10/18 13:34 11/11/18 07:05 EKG Interpretations (text) EKG shows a sinus tachycardia Assessment and Plan Plan: Assessment and plan #1 DKA #2 hyponatremia #3 hypothyroidism #4 type 1 diabetes #5 anxiety disorder and depression #6 hx of arnold-chiari malformation #7 sinus tachycardia Plan We will obtain an echocardiogram with Doppler study as well as a TSH level. Further recommendations to follow. DNP note has been reviewed, I agree with a documented findings and plan of care. Patient was seen and examined.
--- NOTE | 2018-11-11 11:40 | ECHOF ---
Referral Reason:tachycardia MEASUREMENTS -------- HEIGHT: 167.6 cm WEIGHT: 56.7 kg BP: 123/75 RVIDd: 2.4 cm (< 3.3) IVSd: 1.2 cm (0.6 - 1.1) LVIDd: 3.2 cm (3.9 - 5.3) LVPWd: 1.1 cm (0.6 - 1.1) IVSs: 1.4 cm LVIDs: 2.3 cm LVPWs: 1.3 cm LA Diam: 2.3 cm (2.7 - 3.8) LAESV Index (A-L): 16.28 ml/m Ao Diam: 2.6 cm (2.0 - 3.7) AV Cusp: 2.1 cm (1.5 - 2.6) MV EXCURSION: 16.226 mm (> 18.000) MV EF SLOPE: 103 mm/s (70 - 150) EPSS: 0.7 cm MV E Placido: 0.86 m/s MV DecT: 212 ms MV A Placido: 0.97 m/s MV E/A Ratio: 0.88 FINDINGS -------- Resting tachycardia (HR>100bpm). This was a technically good study. The left ventricular size is normal. There is borderline concentric left ventricular hypertrophy. Overall left ventricular systolic function is normal with, an EF between 60 - 65 %. The right ventricle is normal in size. Normal LA size by volume 22+/-6 ml/m2. The right atrium is normal in size. Interatrial and interventricular septum intact. The aortic valve is trileaflet and appears structurally normal. The mitral valve is normal. The tricuspid valve appears structurally normal. Trace/mild (physiologic) pulmonic regurgitation. The aortic root size is normal. Normal inferior vena cava with normal inspiratory collapse consistent with estimated right atrial pre ssure of 5 mmHg. There is no pericardial effusion. CONCLUSIONS -------- 1. Resting tachycardia (HR>100bpm). 2. This was a technically good study. 3. The left ventricular size is normal. 4. There is borderline concentric left ventricular hypertrophy. 5. Overall left ventricular systolic function is normal with, an EF between 60 - 65 %. 6. The right ventricle is normal in size. 7. Normal LA size by volume 22+/-6 ml/m2. 8. The right atrium is normal in size. 9. Interatrial and interventricular septum intact. 10. The aortic valve is trileaflet and appears structurally normal. 11. The mitral valve is normal. 12. The tricuspid valve appears structurally normal. 13. Trace/mild (physiologic) pulmonic regurgitation. 14. The aortic root size is normal. 15. Normal inferior vena cava with normal inspiratory collapse consistent with estimated right atrial pressure of 5 mmHg. 16. There is no pericardial effusion. ENCODING CLERK: Marry Rice RDCS
[2018-11-11 12:00] LABS: Glucose,Whole Blood 162 mg/dL (75-99)
[2018-11-11 12:30] LABS: Glucose,Whole Blood 337 mg/dL (75-99)
[2018-11-11 12:53] LABS: ALT 59 U/L (9-52); AST 37 U/L (14-36); Albumin 4.6 g/dL (3.5-5.0); Alkaline Phosphatase 206 U/L (38-126); Phosphorus 2.8 mg/dL (2.5-4.5); Total Bilirubin 0.6 mg/dL (0.2-1.3); Total Protein 7.6 g/dL (6.3-8.2)
[2018-11-11 13:31] LABS: ALT 51 U/L (9-52); AST 31 U/L (14-36); African American GFR (CKD) >90 (>60 ml/min/1.73 sqM); Albumin 4.4 g/dL (3.5-5.0); Alkaline Phosphatase 208 U/L (38-126); Anion Gap 19 mmol/L; Blood Urea Nitrogen 6 mg/dL (7-17); Calcium 9.5 mg/dL (8.4-10.2); Carbon Dioxide 12 mmol/L (22-30); Chloride 103 mmol/L (98-107); Glucose 429 mg/dL (74-99); Phosphorus 2.5 mg/dL (2.5-4.5); Potassium 4.6 mmol/L (3.5-5.1); Sodium 134 mmol/L (137-145); Total Bilirubin 0.8 mg/dL (0.2-1.3); Total Protein 7.1 g/dL (6.3-8.2)
[2018-11-11 13:33] LABS: Glucose,Whole Blood 396 mg/dL (75-99)
[2018-11-11 14:37] LABS: Glucose,Whole Blood 257 mg/dL (75-99)
[2018-11-11 15:31] LABS: Glucose,Whole Blood 181 mg/dL (75-99)
[2018-11-11] MEDS: INSULIN REGULAR 100 UNIT in SODIUM CHLORIDE 0.9% 100 ML IV SCH (15:32)
[2018-11-11] MEDS: CHOLECALCIFEROL 1,000 UNIT TAB PO SCH (15:35)
[2018-11-11] MEDS: PRAVASTATIN SODIUM 20 MG TAB PO SCH (15:35)
[2018-11-11] MEDS: GABAPENTIN 300 MG CAP PO SCH ×2 (15:35→21:43)
[2018-11-11] MEDS: DEXTROSE 5%-0.45% NACL 1,000 ML IV SCH ×2 (15:36→15:37)
[2018-11-11 16:54] LABS: Glucose,Whole Blood 161 mg/dL (75-99)
[2018-11-11 17:56] LABS: ALT 48 U/L (9-52); AST 53 U/L (14-36); African American GFR (CKD) >90 (>60 ml/min/1.73 sqM); Albumin 4.6 g/dL (3.5-5.0); Alkaline Phosphatase 183 U/L (38-126); Anion Gap 14 mmol/L; Blood Urea Nitrogen 5 mg/dL (7-17); Calcium 9.5 mg/dL (8.4-10.2); Carbon Dioxide 17 mmol/L (22-30); Chloride 104 mmol/L (98-107); Glucose 144 mg/dL (74-99); Sodium 135 mmol/L (137-145); Total Protein 7.7 g/dL (6.3-8.2)
[2018-11-11 17:59] LABS: Potassium 6.3 mmol/L (3.5-5.1)
[2018-11-11 18:06] LABS: Glucose,Whole Blood 134 mg/dL (75-99)
[2018-11-11 18:33] LABS: Glucose,Whole Blood 181 mg/dL (75-99)
[2018-11-11] MEDS: FLUDROCORTISONE 0.1 MG TAB PO SCH (18:39)
[2018-11-11 19:38] LABS: Glucose,Whole Blood 190 mg/dL (75-99)
[2018-11-11 20:38] LABS: Glucose,Whole Blood 200 mg/dL (75-99)
[2018-11-11 21:34] LABS: Glucose,Whole Blood 166 mg/dL (75-99)
[2018-11-11] MEDS: ACETAMINOPHEN IV (For NPO) 1,000 MG in EMPTY BAG 1 BAG IVPB PRN (22:00)
[2018-11-11 22:31] LABS: ALT 55 U/L (9-52); AST 50 U/L (14-36); African American GFR (CKD) >90 (>60 ml/min/1.73 sqM); Albumin 4.6 g/dL (3.5-5.0); Alkaline Phosphatase 209 U/L (38-126); Anion Gap 16 mmol/L; Blood Urea Nitrogen 5 mg/dL (7-17); Calcium 9.8 mg/dL (8.4-10.2); Carbon Dioxide 20 mmol/L (22-30); Chloride 101 mmol/L (98-107); Glucose 195 mg/dL (74-99); Potassium 3.6 mmol/L (3.5-5.1); Sodium 137 mmol/L (137-145); Total Bilirubin 0.6 mg/dL (0.2-1.3); Total Protein 7.6 g/dL (6.3-8.2)
[2018-11-11 22:38] LABS: Glucose,Whole Blood 284 mg/dL (75-99)
[2018-11-11 23:37] LABS: Glucose,Whole Blood 225 mg/dL (75-99)
[2018-11-12 00:35] LABS: Glucose,Whole Blood 297 mg/dL (75-99)
[2018-11-12 01:36] LABS: Glucose,Whole Blood 290 mg/dL (75-99)
[2018-11-12 02:30] LABS: Glucose,Whole Blood 305 mg/dL (75-99)
[2018-11-12 03:21] LABS: ALT 59 U/L (9-52); AST 59 U/L (14-36); African American GFR (CKD) >90 (>60 ml/min/1.73 sqM); Albumin 4.8 g/dL (3.5-5.0); Alkaline Phosphatase 201 U/L (38-126); Anion Gap 21 mmol/L; Blood Urea Nitrogen 6 mg/dL (7-17); Calcium 9.9 mg/dL (8.4-10.2); Carbon Dioxide 18 mmol/L (22-30); Chloride 99 mmol/L (98-107); Glucose 270 mg/dL (74-99); Potassium 3.6 mmol/L (3.5-5.1); Sodium 138 mmol/L (137-145); Total Bilirubin 0.8 mg/dL (0.2-1.3); Total Protein 7.6 g/dL (6.3-8.2)
[2018-11-12 03:35] LABS: Glucose,Whole Blood 192 mg/dL (75-99)
[2018-11-12] MEDS: DEXTROSE 5%-0.45% NACL 1,000 ML IV SCH ×3 (04:17→13:01)
[2018-11-12 05:01] LABS: Glucose,Whole Blood 180 mg/dL (75-99)
[2018-11-12] MEDS: ACETAMINOPHEN IV (For NPO) 1,000 MG in EMPTY BAG 1 BAG IVPB PRN (05:30)
[2018-11-12] MEDS: TRIMETHOBENZAMIDE 100 MG/ML 2 ML VIAL IM PRN ×3 (05:32→20:54)
[2018-11-12 05:45] LABS: Glucose,Whole Blood 138 mg/dL (75-99)
[2018-11-12] MEDS: LEVOTHYROXINE 25 MCG TAB PO SCH (06:27)
[2018-11-12] MEDS: PANTOPRAZOLE 40 MG TABLET PO SCH (06:28)
[2018-11-12 07:30] LABS: Glucose,Whole Blood 333 mg/dL (75-99)
[2018-11-12 07:30] LABS: Glucose,Whole Blood 277 mg/dL (75-99)
[2018-11-12 07:45] LABS: ALT 64 U/L (9-52); AST 56 U/L (14-36); African American GFR (CKD) >90 (>60 ml/min/1.73 sqM); Albumin 4.4 g/dL (3.5-5.0); Alkaline Phosphatase 198 U/L (38-126); Anion Gap 17 mmol/L; Blood Urea Nitrogen 6 mg/dL (7-17); Calcium 9.7 mg/dL (8.4-10.2); Carbon Dioxide 22 mmol/L (22-30); Chloride 98 mmol/L (98-107); Glucose 195 mg/dL (74-99); Potassium 4.1 mmol/L (3.5-5.1); Sodium 137 mmol/L (137-145); Total Bilirubin 0.7 mg/dL (0.2-1.3); Total Protein 7.4 g/dL (6.3-8.2)
[2018-11-12] MEDS: INSULIN REGULAR 100 UNIT in SODIUM CHLORIDE 0.9% 100 ML IV SCH (08:07)
[2018-11-12 08:50] LABS: Glucose,Whole Blood 209 mg/dL (75-99)
[2018-11-12 09:51] LABS: Glucose,Whole Blood 148 mg/dL (75-99)
[2018-11-12] MEDS ORDERED: METOCLOPRAMIDE 5 MG/ML 2 ML VIAL IVP PRN (10:44)
[2018-11-12 10:48] LABS: Glucose,Whole Blood 252 mg/dL (75-99)
--- NOTE | 2018-11-12 10:48 | P.PN ---
Subjective 23-year-old female with multiple medical problems was admitted secondary to diabetic ketoacidosis patient still has an anion gap of 17 remains on IV insulin with the D5 half-normal saline the left lites are better patient that nausea is better with Tigan patient will be started on Reglan I discussed extensively at length with the patient. Patient's metoprolol was stopped in the past because of significant orthostatic hypotension and in couple episodes. Patient remains tachycardic sinus tachycardia TSH is within normal limits patient's baseline heart rate is very high. Discussed with cardiology and leave the decision of heart rate controlled to cardiology. Patient can take by mouth medications, patient will be started on Tylenol 3 for pain trying to avoid morphine or Dilaudid because of her gastroparesis. Constitutional: Denied any fatigue denied any fever. Cardio vascular: denied any chest pain, palpitations Gastrointestinal can use to have nausea Pulmonary: Denied any shortness of breath cough Neurologic denied any new focal deficits All inpatient medications were reviewed and appropriate changes in these medications as dictated in the interval history and assessment and plan. Objective - Vital Signs Vital signs: Vital Signs Temp 99.1 F 11/12/18 08:11 Pulse 126 H 11/12/18 08:11 Resp 20 11/12/18 08:11 BP 154/95 11/12/18 08:11 Pulse Ox 100 11/12/18 04:00 Intake & Output 11/11/18 11/12/18 11/12/18 18:59 06:59 18:59 Intake Total 22.644 24.950 11.058 Output Total 750 Balance -727.356 24.950 11.058 Weight 59.5 kg Intake: Intake, IV Titration 22.644 24.950 11.058 Amount Insulin Regular 100 unit 22.644 24.950 11.058 In Sodium Chloride 0.9% 100 ml @ 0.1 UNITS/KG/HR 5.727 mls/hr IV .[id number] [facility] Rx#:[id number] Output: Urine 750 Other: Voiding Method Toilet Toilet Toilet # Voids 1 # Emeses 3 - Exam PHYSICAL EXAMINATION: GENERAL: The patient is alert and oriented x3, not in any acute distress. Well developed, well nourished. HEENT: Pupils are round and equally reacting to light. EOMI. No scleral icterus. No conjunctival pallor. Normocephalic, atraumatic. No pharyngeal erythema. No thyromegaly. CARDIOVASCULAR: S1 and S2 present. No murmurs, rubs, or gallops. His tachycardic loud heart sounds PULMONARY: Chest is clear to auscultation, no wheezing or crackles. ABDOMEN: Soft, nontender, nondistended, normoactive bowel sounds. No palpable organomegaly. MUSCULOSKELETAL: No joint swelling or deformity. EXTREMITIES: No cyanosis, clubbing, or pedal edema. NEUROLOGICAL: Gross neurological examination did not reveal any focal deficits. SKIN: No rashes. - Labs CBC & Chem 7: 11/10/18 13:34 11/12/18 05:53 Labs: Abnormal Lab Results - Last 24 Hours (Table) 11/11/18 11/11/18 11/11/18 Range/Units 07:05 10:31 11:29 Sodium (137-145) mmol/L Potassium (3.5-5.1) mmol/L Carbon Dioxide 13 L (22-30) mmol/L BUN (7-17) mg/dL Creatinine 0.51 L (0.52-1.04) mg/dL Glucose 148 H (74-99) mg/dL POC Glucose (mg/dL) 143 H 162 H (75-99) mg/dL AST 37 H (14-36) U/L ALT 59 H (9-52) U/L Alkaline Phosphatase 206 H (38-126) U/L 11/11/18 11/11/18 11/11/18 Range/Units 12:26 12:54 13:30 Sodium 134 L (137-145) mmol/L Potassium (3.5-5.1) mmol/L Carbon Dioxide 12 L (22-30) mmol/L BUN 6 L (7-17) mg/dL Creatinine 0.41 L (0.52-1.04) mg/dL Glucose 429 H (74-99) mg/dL POC Glucose (mg/dL) 337 H 396 H (75-99) mg/dL AST (14-36) U/L ALT (9-52) U/L Alkaline Phosphatase 208 H (38-126) U/L 11/11/18 11/11/18 11/11/18 Range/Units 14:35 15:28 16:51 Sodium (137-145) mmol/L Potassium (3.5-5.1) mmol/L Carbon Dioxide (22-30) mmol/L BUN (7-17) mg/dL Creatinine (0.52-1.04) mg/dL Glucose (74-99) mg/dL POC Glucose (mg/dL) 257 H 181 H 161 H (75-99) mg/dL AST (14-36) U/L ALT (9-52) U/L Alkaline Phosphatase (38-126) U/L 11/11/18 11/11/18 11/11/18 Range/Units 17:29 17:31 18:30 Sodium 135 L (137-145) mmol/L Potassium 6.3 H* (3.5-5.1) mmol/L Carbon Dioxide 17 L (22-30) mmol/L BUN 5 L (7-17) mg/dL Creatinine 0.36 L (0.52-1.04) mg/dL Glucose 144 H (74-99) mg/dL POC Glucose (mg/dL) 134 H 181 H (75-99) mg/dL AST 53 H (14-36) U/L ALT (9-52) U/L Alkaline Phosphatase 183 H (38-126) U/L 11/11/18 11/11/18 11/11/18 Range/Units 19:35 20:37 21:33 Sodium (137-145) mmol/L Potassium (3.5-5.1) mmol/L Carbon Dioxide (22-30) mmol/L BUN (7-17) mg/dL Creatinine (0.52-1.04) mg/dL Glucose (74-99) mg/dL POC Glucose (mg/dL) 190 H 200 H 166 H (75-99) mg/dL AST (14-36) U/L ALT (9-52) U/L Alkaline Phosphatase (38-126) U/L 11/11/18 11/11/18 11/11/18 Range/Units 21:39 22:37 23:35 Sodium (137-145) mmol/L Potassium (3.5-5.1) mmol/L Carbon Dioxide 20 L (22-30) mmol/L BUN 5 L (7-17) mg/dL Creatinine 0.37 L (0.52-1.04) mg/dL Glucose 195 H (74-99) mg/dL POC Glucose (mg/dL) 284 H 225 H (75-99) mg/dL AST 50 H (14-36) U/L ALT 55 H (9-52) U/L Alkaline Phosphatase 209 H (38-126) U/L 11/12/18 11/12/18 11/12/18 Range/Units 00:34 01:35 02:28 Sodium (137-145) mmol/L Potassium (3.5-5.1) mmol/L Carbon Dioxide (22-30) mmol/L BUN (7-17) mg/dL Creatinine (0.52-1.04) mg/dL Glucose (74-99) mg/dL POC Glucose (mg/dL) 297 H 290 H 305 H (75-99) mg/dL AST (14-36) U/L ALT (9-52) U/L Alkaline Phosphatase (38-126) U/L 11/12/18 11/12/18 11/12/18 Range/Units 02:59 03:33 04:40 Sodium (137-145) mmol/L Potassium (3.5-5.1) mmol/L Carbon Dioxide 18 L (22-30) mmol/L BUN 6 L (7-17) mg/dL Creatinine 0.36 L (0.52-1.04) mg/dL Glucose 270 H (74-99) mg/dL POC Glucose (mg/dL) 192 H 180 H (75-99) mg/dL AST 59 H (14-36) U/L ALT 59 H (9-52) U/L Alkaline Phosphatase 201 H (38-126) U/L 11/12/18 11/12/18 11/12/18 Range/Units 05:37 05:53 06:52 Sodium (137-145) mmol/L Potassium (3.5-5.1) mmol/L Carbon Dioxide (22-30) mmol/L BUN 6 L (7-17) mg/dL Creatinine 0.35 L (0.52-1.04) mg/dL Glucose 195 H (74-99) mg/dL POC Glucose (mg/dL) 138 H 333 H (75-99) mg/dL AST 56 H (14-36) U/L ALT 64 H (9-52) U/L Alkaline Phosphatase 198 H (38-126) U/L 0811/12/18 11/12/18 Range/Units 07:28 08:33 09:32 Sodium (137-145) mmol/L Potassium (3.5-5.1) mmol/L Carbon Dioxide (22-30) mmol/L BUN (7-17) mg/dL Creatinine (0.52-1.04) mg/dL Glucose (74-99) mg/dL POC Glucose (mg/dL) 277 H 209 H 148 H (75-99) mg/dL AST (14-36) U/L ALT (9-52) U/L Alkaline Phosphatase (38-126) U/L Assessment and Plan Plan: -Diabetic ketoacidosis: Patient will be continued on protocol was anion gap was also started on my subcutaneous long-acting insulin along with pre-meal with carb counting. Patient will be switched to IV normal saline. -Hyponatremia pseudohyponatremia from hyperglycemia which improved now -Diabetic gastroparesis and diabetic autonomic dysfunction and possible peripher al neuropathy: Symptomatic treatment for these -Hypothyroidism -Type 1 diabetes mellitus -Hypothyroidism -Anxiety disorder -Depression -History of Arnold-chiari malformation -History of regular Danlos syndrome. For above-mentioned chronic medical problems patient will be resumed on appropriate home medications
[2018-11-12 11:27] LABS: Glucose,Whole Blood 212 mg/dL (75-99)
[2018-11-12] MEDS: Acetaminophen-Codeine 300-30mg TAB PO PRN ×2 (11:46→20:59)
[2018-11-12] MEDS: FLUDROCORTISONE 0.1 MG TAB PO SCH (12:17)
[2018-11-12] MEDS: CHOLECALCIFEROL 1,000 UNIT TAB PO SCH (12:17)
[2018-11-12] MEDS: GABAPENTIN 300 MG CAP PO SCH ×2 (12:17→22:23)
[2018-11-12] MEDS: PRAVASTATIN SODIUM 20 MG TAB PO SCH (12:18)
[2018-11-12 12:35] LABS: Glucose,Whole Blood 188 mg/dL (75-99)
[2018-11-12] MEDS: MAG HYDROX/AL HYDROX/SIMETH 30 ML, LIDOCAINE VISCOUS 30 ML, diphenhydrAMINE ELIXIR 75 M... PO SCH ×12 (13:46→20:55)
[2018-11-12 13:49] LABS: Glucose,Whole Blood 190 mg/dL (75-99)
[2018-11-12 14:07] LABS: Glucose,Whole Blood 180 mg/dL (75-99)
--- NOTE | 2018-11-12 14:16 | P.PN ---
Subjective Progress Note Date: 11/12/18 This is a 23-year-old female with history of diabetes, hypothyroidism, Chiari malformation, who presented to the hospital with nausea and vomiting, was found to be in DKA. She states that her blood sugars have been up and down, couplets time she noticed him to be over 400. She denies any abdominal discomfort, no chest discomfort, no palpitations. She does occasionally get headaches when she is in a bright light but at this time denies any headaches or dizziness. Her EKG on presentation here showed a sinus tachycardia with a heart rate of 140. Blood pressure 132/80 with a heart rate of 1:30, 100% on room air. White blood cell count 13.0, hemoglobin 14, platelet count 663. PH on arrival 7.09, pCO2 43 HCO3 13. Lab data on arrival here, sodium 143, potassium 4.9, carbon dioxide less than 5, BUN 13, creatinine 0.6. Blood glucose 428, plasma lactic acid 2.5 . We were asked to see the patient in consultation for tachycardia. 11/12/2018 The patient was seen by Dr. Chang in the office in June due to recurrent syncope. She had previously underwent tilt table test which showed orthostatic hypotension with symptoms nausea, palpitations and anxiety-like feeling. At that time, her metoprolol was discontinued and she was started on Florinef. She remains tachycardic with a heart rate around 120. 2-D echo with Doppler showed a normal LV systolic function with ejection fraction between 60-65% with no significant valvular abnormalities. She did have a 24-hour Holter monitor in May of this year which showed sinus mechanism with heart rate ranging from 86- 143 with an average heart rate of 101 bpm with occasional premature beats. Upon examination this morning, patient is resting in bed. She overall does not feel well. She's having significant nausea with abdominal discomfort she's not had any vomiting this morning. Labs this morning showed potassium 4.1, BUN 6, creatinine 0.35. She continues to be tachycardic with sinus mechanism. Objective - Vital Signs Vital signs: Vital Signs Temp 99.1 F 11/12/18 08:11 Pulse 126 H 11/12/18 08:11 Resp 20 11/12/18 08:11 BP 154/95 11/12/18 08:11 Pulse Ox 100 11/12/18 04:00 Intake & Output 11/11/18 11/12/18 11/12/18 18:59 06:59 18:59 Intake Total 22.644 24.950 11.058 Output Total 750 Balance -727.356 24.950 11.058 Weight 59.5 kg Intake: Intake, IV Titration 22.644 24.950 11.058 Amount Insulin Regular 100 unit 22.644 24.950 11.058 In Sodium Chloride 0.9% 100 ml @ 0.1 UNITS/KG/HR 5.727 mls/hr IV .[id number] [facility] Rx#:[id number] Output: Urine 750 Other: Voiding Method Toilet Toilet Toilet # Voids 1 # Emeses 3 - Exam PHYSICAL EXAMINATION: HEENT: Head is atraumatic, normocephalic. Pupils equal, round. Neck is supple. There is no elevated jugular venous pressure. HEART EXAMINATION: Heart sounds regular, S1 and S2 normal, tachycardia noted. No murmur or gallop heard. CHEST EXAMINATION: Lungs are clear to auscultation. No chest wall tenderness is noted on palpation or with deep breathing. ABDOMEN: Soft, generalized tenderness. Bowel sounds are heard. No organomegaly noted. EXTREMITIES: 2+ peripheral pulses with no evidence of peripheral edema and no calf tenderness noted. NEUROLOGIC patient is awake, alert and oriented x3. - Labs CBC & Chem 7: 11/10/18 13:34 11/12/18 05:53 Labs: Abnormal Lab Results - Last 24 Hours (Table) 11/11/18 11/11/18 11/11/18 Range/Units 07:05 11:29 12:26 Sodium (137-145) mmol/L Potassium (3.5-5.1) mmol/L Carbon Dioxide 13 L (22-30) mmol/L BUN (7-17) mg/dL Creatinine 0.51 L (0.52-1.04) mg/dL Glucose 148 H (74-99) mg/dL POC Glucose (mg/dL) 162 H 337 H (75-99) mg/dL AST 37 H (14-36) U/L ALT 59 H (9-52) U/L Alkaline Phosphatase 206 H (38-126) U/L 11/11/18 11/11/18 11/11/18 Range/Units 12:54 13:30 14:35 Sodium 134 L (137-145) mmol/L Potassium (3.5-5.1) mmol/L Carbon Dioxide 12 L (22-30) mmol/L BUN 6 L (7-17) mg/dL Creatinine 0.41 L (0.52-1.04) mg/dL Glucose 429 H (74-99) mg/dL POC Glucose (mg/dL) 396 H 257 H (75-99) mg/dL AST (14-36) U/L ALT (9-52) U/L Alkaline Phosphatase 208 H (38-126) U/L 11/11/18 11/11/18 11/11/18 Range/Units 15:28 16:51 17:29 Sodium 135 L (137-145) mmol/L Potassium 6.3 H* (3.5-5.1) mmol/L Carbon Dioxide 17 L (22-30) mmol/L BUN 5 L (7-17) mg/dL Creatinine 0.36 L (0.52-1.04) mg/dL Glucose 144 H (74-99) mg/dL POC Glucose (mg/dL) 181 H 161 H (75-99) mg/dL AST 53 H (14-36) U/L ALT (9-52) U/L Alkaline Phosphatase 183 H (38-126) U/L 11/11/18 11/11/18 11/11/18 Range/Units 17:31 18:30 19:35 Sodium (137-145) mmol/L Potassium (3.5-5.1) mmol/L Carbon Dioxide (22-30) mmol/L BUN (7-17) mg/dL Creatinine (0.52-1.04) mg/dL Glucose (74-99) mg/dL POC Glucose (mg/dL) 134 H 181 H 190 H (75-99) mg/dL AST (14-36) U/L ALT (9-52) U/L Alkaline Phosphatase (38-126) U/L 11/11/18 11/11/18 11/11/18 Range/Units 20:37 21:33 21:39 Sodium (137-145) mmol/L Potassium (3.5-5.1) mmol/L Carbon Dioxide 20 L (22-30) mmol/L BUN 5 L (7-17) mg/dL Creatinine 0.37 L (0.52-1.04) mg/dL Glucose 195 H (74-99) mg/dL POC Glucose (mg/dL) 200 H 166 H (75-99) mg/dL AST 50 H (14-36) U/L ALT 55 H (9-52) U/L Alkaline Phosphatase 209 H (38-126) U/L 11/11/18 11/11/18 11/12/18 Range/Units 22:37 23:35 00:34 Sodium (137-145) mmol/L Potassium (3.5-5.1) mmol/L Carbon Dioxide (22-30) mmol/L BUN (7-17) mg/dL Creatinine (0.52-1.04) mg/dL Glucose (74-99) mg/dL POC Glucose (mg/dL) 284 H 225 H 297 H (75-99) mg/dL AST (14-36) U/L ALT (9-52) U/L Alkaline Phosphatase (38-126) U/L 11/12/18 11/12/18 11/12/18 Range/Units 01:35 02:28 02:59 Sodium (137-145) mmol/L Potassium (3.5-5.1) mmol/L Carbon Dioxide 18 L (22-30) mmol/L BUN 6 L (7-17) mg/dL Creatinine 0.36 L (0.52-1.04) mg/dL Glucose 270 H (74-99) mg/dL POC Glucose (mg/dL) 290 H 305 H (75-99) mg/dL AST 59 H (14-36) U/L ALT 59 H (9-52) U/L Alkaline Phosphatase 201 H (38-126) U/L 11/12/18 11/12/18 11/12/18 Range/Units 03:33 04:40 05:37 Sodium (137-145) mmol/L Potassium (3.5-5.1) mmol/L Carbon Dioxide (22-30) mmol/L BUN (7-17) mg/dL Creatinine (0.52-1.04) mg/dL Glucose (74-99) mg/dL POC Glucose (mg/dL) 192 H 180 H 138 H (75-99) mg/dL AST (14-36) U/L ALT (9-52) U/L Alkaline Phosphatase (38-126) U/L 11/12/18 11/12/18 11/12/18 Range/Units 05:53 06:52 07:28 Sodium (137-145) mmol/L Potassium (3.5-5.1) mmol/L Carbon Dioxide (22-30) mmol/L BUN 6 L (7-17) mg/dL Creatinine 0.35 L (0.52-1.04) mg/dL Glucose 195 H (74-99) mg/dL POC Glucose (mg/dL) 333 H 277 H (75-99) mg/dL AST 56 H (14-36) U/L ALT 64 H (9-52) U/L Alkaline Phosphatase 198 H (38-126) U/L 11/12/18 11/12/18 11/12/18 Range/Units 08:33 09:32 10:28 Sodium (137-145) mmol/L Potassium (3.5-5.1) mmol/L Carbon Dioxide (22-30) mmol/L BUN (7-17) mg/dL Creatinine (0.52-1.04) mg/dL Glucose (74-99) mg/dL POC Glucose (mg/dL) 209 H 148 H 252 H (75-99) mg/dL AST (14-36) U/L ALT (9-52) U/L Alkaline Phosphatase (38-126) U/L 11/12/18 Range/Units 11:25 Sodium (137-145) mmol/L Potassium (3.5-5.1) mmol/L Carbon Dioxide (22-30) mmol/L BUN (7-17) mg/dL Creatinine (0.52-1.04) mg/dL Glucose (74-99) mg/dL POC Glucose (mg/dL) 212 H (75-99) mg/dL AST (14-36) U/L ALT (9-52) U/L Alkaline Phosphatase (38-126) U/L Assessment and Plan Assessment: #1 DKA #2 hyponatremia, improved #3 hypothyroidism, with normal TSH #4 type 1 diabetes #5 anxiety disorder and depression #6 hx of arnold-chiari malformation #7 sinus tachycardia #8 history of orthostatic hypotension Plan: From cardiology perspective, we will avoid adding a beta angi at this time. Tachycardia could be related to autonomic dysfunction secondary to diabetes. Patient was instructed to increase activity, ambulate in the hallways. Monitor heart rate with activity. We will continue to follow the patient and provide further recommendations to follow. [employer] note has been reviewed, I agree with a documented findings and plan of care. Patient was seen and examined.
[2018-11-12 14:43] LABS: African American GFR (CKD) >90 (>60 ml/min/1.73 sqM); Anion Gap 15 mmol/L; Blood Urea Nitrogen 5 mg/dL (7-17); Calcium 9.3 mg/dL (8.4-10.2); Carbon Dioxide 22 mmol/L (22-30); Chloride 100 mmol/L (98-107); Glucose 186 mg/dL (74-99); Potassium 3.2 mmol/L (3.5-5.1); Sodium 137 mmol/L (137-145)
[2018-11-12 15:01] LABS: Glucose,Whole Blood 144 mg/dL (75-99)
[2018-11-12 16:02] LABS: Glucose,Whole Blood 201 mg/dL (75-99)
[2018-11-12 17:06] LABS: Glucose,Whole Blood 162 mg/dL (75-99)
[2018-11-12 18:11] LABS: Glucose,Whole Blood 243 mg/dL (75-99)
[2018-11-12] MEDS: ONDANSETRON 4 MG/2 ML VIAL IVP PRN (18:14)
[2018-11-12 19:24] LABS: Glucose,Whole Blood 301 mg/dL (75-99)
[2018-11-12 19:30] LABS: African American GFR (CKD) >90 (>60 ml/min/1.73 sqM); Anion Gap 16 mmol/L; Blood Urea Nitrogen 5 mg/dL (7-17); Calcium 9.3 mg/dL (8.4-10.2); Carbon Dioxide 22 mmol/L (22-30); Chloride 98 mmol/L (98-107); Glucose 287 mg/dL (74-99); Phosphorus 2.6 mg/dL (2.5-4.5); Sodium 136 mmol/L (137-145)
[2018-11-12 19:35] LABS: Potassium 3.6 mmol/L (3.5-5.1)
[2018-11-12 20:04] LABS: Glucose,Whole Blood 284 mg/dL (75-99)
[2018-11-12] MEDS: D5-0.45% NACL WITH KCL 20MEQ/L 1,000 ML IV SCH (21:02)
[2018-11-12 21:04] LABS: Glucose,Whole Blood 203 mg/dL (75-99)
[2018-11-12 22:07] LABS: Glucose,Whole Blood 167 mg/dL (75-99)
[2018-11-12 23:06] LABS: Glucose,Whole Blood 242 mg/dL (75-99)
[2018-11-13] MEDS: INSULIN REGULAR 100 UNIT in SODIUM CHLORIDE 0.9% 100 ML IV SCH (00:10)
[2018-11-13] MEDS: D5-0.45% NACL WITH KCL 20MEQ/L 1,000 ML IV SCH ×2 (00:12→06:08)
[2018-11-13 00:15] LABS: Glucose,Whole Blood 336 mg/dL (75-99)
[2018-11-13 01:03] LABS: Glucose,Whole Blood 212 mg/dL (75-99)
[2018-11-13 01:31] LABS: African American GFR (CKD) >90 (>60 ml/min/1.73 sqM); Anion Gap 17 mmol/L; Blood Urea Nitrogen 5 mg/dL (7-17); Calcium 9.4 mg/dL (8.4-10.2); Carbon Dioxide 20 mmol/L (22-30); Chloride 100 mmol/L (98-107); Glucose 248 mg/dL (74-99); Potassium 3.4 mmol/L (3.5-5.1); Sodium 137 mmol/L (137-145)
[2018-11-13 02:08] LABS: Glucose,Whole Blood 170 mg/dL (75-99)
[2018-11-13 03:00] LABS: Glucose,Whole Blood 135 mg/dL (75-99)
[2018-11-13 04:15] LABS: Glucose,Whole Blood 237 mg/dL (75-99)
[2018-11-13] MEDS: ONDANSETRON 4 MG/2 ML VIAL IVP PRN ×3 (05:10→18:09)
[2018-11-13] MEDS: TRIMETHOBENZAMIDE 100 MG/ML 2 ML VIAL IM PRN ×2 (05:11→13:59)
[2018-11-13 05:27] LABS: Glucose,Whole Blood 298 mg/dL (75-99)
[2018-11-13] MEDS: PANTOPRAZOLE 40 MG TABLET PO SCH ×2 (06:00→09:48)
[2018-11-13 06:01] LABS: Glucose,Whole Blood 229 mg/dL (75-99)
[2018-11-13] MEDS: LEVOTHYROXINE 25 MCG TAB PO SCH (06:07)
[2018-11-13 07:00] LABS: Glucose,Whole Blood 211 mg/dL (75-99)
[2018-11-13 07:34] LABS: African American GFR (CKD) >90 (>60 ml/min/1.73 sqM); Anion Gap 19 mmol/L; Blood Urea Nitrogen 5 mg/dL (7-17); Calcium 9.5 mg/dL (8.4-10.2); Carbon Dioxide 20 mmol/L (22-30); Chloride 100 mmol/L (98-107); Glucose 222 mg/dL (74-99); Potassium 3.7 mmol/L (3.5-5.1); Sodium 139 mmol/L (137-145)
[2018-11-13] MEDS: Acetaminophen-Codeine 300-30mg TAB PO PRN ×2 (08:12→18:08)
[2018-11-13 08:21] LABS: Glucose,Whole Blood 237 mg/dL (75-99)
[2018-11-13 08:58] LABS: Glucose,Whole Blood 285 mg/dL (75-99)
[2018-11-13] MEDS: GABAPENTIN 300 MG CAP PO SCH ×2 (09:36→21:18)
[2018-11-13] MEDS: CHOLECALCIFEROL 1,000 UNIT TAB PO SCH (09:36)
[2018-11-13] MEDS: PRAVASTATIN SODIUM 20 MG TAB PO SCH (09:36)
[2018-11-13] MEDS: FLUDROCORTISONE 0.1 MG TAB PO SCH (09:36)
[2018-11-13] MEDS: MAG HYDROX/AL HYDROX/SIMETH 30 ML, LIDOCAINE VISCOUS 30 ML, diphenhydrAMINE ELIXIR 75 M... PO SCH ×12 (09:37→21:18)
[2018-11-13 10:08] LABS: Glucose,Whole Blood 229 mg/dL (75-99)
[2018-11-13] MEDS ORDERED: INSULIN DETEMIR (LEVEMIR) 100 UNIT/ML SYR SQ ONE (11:30)
[2018-11-13] MEDS: SODIUM CHLORIDE 0.9% 1,000 ML IV SCH ×2 (11:54→18:02)
[2018-11-13 12:00] LABS: Glucose,Whole Blood 345 mg/dL (75-99)
[2018-11-13] MEDS: MAG HYDROX/AL HYDROX/SIMETH 30 ML CUP PO SCH ×3 (12:06→21:18)
[2018-11-13 13:21] LABS: Glucose,Whole Blood 381 mg/dL (75-99)
[2018-11-13] MEDS: INSULIN ASPART (NovoLOG) 100 UNIT/ML VIAL SQ SCH ×3 (13:32→21:26)
[2018-11-13] MEDS ORDERED: INSULIN REGULAR 100 UNIT/ML VIAL IV ONE ×2 (13:38)
--- NOTE | 2018-11-13 13:43 | P.PN ---
Subjective 23-year-old female with multiple medical problems was admitted secondary to diabetic ketoacidosis patient still has an anion gap of 17 remains on IV insulin with the D5 half-normal saline the left lites are better patient that nausea is better with Tigan patient will be started on Reglan I discussed extensively at length with the patient. Patient's metoprolol was stopped in the past because of significant orthostatic hypotension and in couple episodes. Patient remains tachycardic sinus tachycardia TSH is within normal limits patient's baseline heart rate is very high. Discussed with cardiology and leave the decision of heart rate controlled to cardiology. Patient can take by mouth medications, patient will be started on Tylenol 3 for pain trying to avoid morphine or Dilaudid because of her gastroparesis. 11/13/2018 Patient anion gap is worse today in spite of being on IV insulin for 3 days I believe this is due to D5 half-normal saline because of which are not completely discontinue IV insulin D5 half-normal saline and patient will be started on subcu Insulin with IV fluids I'm hoping IV fluids and subcutaneous insulin will help her DKA if not we'll have to resume on IV insulin. We'll recheck the basic metabolic profile in the evening again. Patient will need to be nothing by mouth for any carbs Constitutional: Denied any fatigue denied any fever. Cardio vascular: denied any chest pain, palpitations Gastrointestinal can use to have nausea Pulmonary: Denied any shortness of breath cough Neurologic denied any new focal deficits All inpatient medications were reviewed and appropriate changes in these medications as dictated in the interval history and assessment and plan. Objective - Vital Signs Vital signs: Vital Signs Temp 98.3 F 11/13/18 12:26 Pulse 125 H 11/13/18 12:26 Resp 18 11/13/18 12:26 BP 167/100 11/13/18 12:26 Pulse Ox 98 11/13/18 12:26 Intake & Output 11/12/18 11/13/18 11/13/18 18:59 06:59 18:59 Intake Total 28.111 2429.294 8.653 Balance 28.111 2429.294 8.653 Weight 59.2 kg Intake: Intake, IV Titration 28.111 2429.294 8.653 Amount D5-0.45% NaCl with KCl 2400 20Meq/l 1,000 ml @ 150 mls/hr IV .[id number] [facility] Rx# :[id number] Insulin Regular 100 unit 28.111 29.294 8.653 In Sodium Chloride 0.9% 100 ml @ 0.1 UNITS/KG/HR 5.727 mls/hr IV .[id number] [facility] Rx#:[id number] Other: Voiding Method Toilet Toilet # Voids 2 1 - Exam PHYSICAL EXAMINATION: GENERAL: The patient is alert and oriented x3, not in any acute distress. Well developed, well nourished. HEENT: Pupils are round and equally reacting to light. EOMI. No scleral icterus. No conjunctival pallor. Normocephalic, atraumatic. No pharyngeal erythema. No thyromegaly. CARDIOVASCULAR: S1 and S2 present. No murmurs, rubs, or gallops. His tachycardic loud heart sounds PULMONARY: Chest is clear to auscultation, no wheezing or crackles. ABDOMEN: Soft, nontender, nondistended, normoactive bowel sounds. No palpable organomegaly. MUSCULOSKELETAL: No joint swelling or deformity. EXTREMITIES: No cyanosis, clubbing, or pedal edema. NEUROLOGICAL: Gross neurological examination did not reveal any focal deficits. SKIN: No rashes. - Labs CBC & Chem 7: 11/10/18 13:34 11/13/18 06:37 Labs: Abnormal Lab Results - Last 24 Hours (Table) 11/12/18 11/12/18 11/12/18 Range/Units 13:29 14:01 14:05 Sodium (137-145) mmol/L Potassium 3.2 L (3.5-5.1) mmol/L Carbon Dioxide (22-30) mmol/L BUN 5 L (7-17) mg/dL Creatinine 0.32 L (0.52-1.04) mg/dL Glucose 186 H (74-99) mg/dL POC Glucose (mg/dL) 190 H 180 H (75-99) mg/dL Phosphorus 2.0 L (2.5-4.5) mg/dL 11/12/18 11/12/18 11/12/18 Range/Units 14:59 16:00 17:04 Sodium (137-145) mmol/L Potassium (3.5-5.1) mmol/L Carbon Dioxide (22-30) mmol/L BUN (7-17) mg/dL Creatinine (0.52-1.04) mg/dL Glucose (74-99) mg/dL POC Glucose (mg/dL) 144 H 201 H 162 H (75-99) mg/dL Phosphorus (2.5-4.5) mg/dL 11/12/18 11/12/18 11/12/18 Range/Units 18:04 18:39 19:04 Sodium 136 L (137-145) mmol/L Potassium (3.5-5.1) mmol/L Carbon Dioxide (22-30) mmol/L BUN 5 L (7-17) mg/dL Creatinine 0.33 L (0.52-1.04) mg/dL Glucose 287 H (74-99) mg/dL POC Glucose (mg/dL) 243 H 301 H (75-99) mg/dL Phosphorus (2.5-4.5) mg/dL 11/12/18 11/12/18 11/12/18 Range/Units 20:03 21:01 22:05 Sodium (137-145) mmol/L Potassium (3.5-5.1) mmol/L Carbon Dioxide (22-30) mmol/L BUN (7-17) mg/dL Creatinine (0.52-1.04) mg/dL Glucose (74-99) mg/dL POC Glucose (mg/dL) 284 H 203 H 167 H (75-99) mg/dL Phosphorus (2.5-4.5) mg/dL 11/12/18 11/13/18 11/13/18 Range/Units 23:05 00:09 00:54 Sodium (137-145) mmol/L Potassium 3.4 L (3.5-5.1) mmol/L Carbon Dioxide 20 L (22-30) mmol/L BUN 5 L (7-17) mg/dL Creatinine 0.34 L (0.52-1.04) mg/dL Glucose 248 H (74-99) mg/dL POC Glucose (mg/dL) 242 H 336 H (75-99) mg/dL Phosphorus (2.5-4.5) mg/dL 11/13/18 11/13/18 11/13/18 Range/Units 01:01 01:56 02:56 Sodium (137-145) mmol/L Potassium (3.5-5.1) mmol/L Carbon Dioxide (22-30) mmol/L BUN (7-17) mg/dL Creatinine (0.52-1.04) mg/dL Glucose (74-99) mg/dL POC Glucose (mg/dL) 212 H 170 H 135 H (75-99) mg/dL Phosphorus (2.5-4.5) mg/dL 11/13/18 11/13/18 11/13/18 Range/Units 04:13 05:02 06:00 Sodium (137-145) mmol/L Potassium (3.5-5.1) mmol/L Carbon Dioxide (22-30) mmol/L BUN (7-17) mg/dL Creatinine (0.52-1.04) mg/dL Glucose (74-99) mg/dL POC Glucose (mg/dL) 237 H 298 H 229 H (75-99) mg/dL Phosphorus (2.5-4.5) mg/dL 11/13/18 11/13/18 11/13/18 Range/Units 06:37 06:58 08:02 Sodium (137-145) mmol/L Potassium (3.5-5.1) mmol/L Carbon Dioxide 20 L (22-30) mmol/L BUN 5 L (7-17) mg/dL Creatinine 0.38 L (0.52-1.04) mg/dL Glucose 222 H (74-99) mg/dL POC Glucose (mg/dL) 211 H 237 H (75-99) mg/dL Phosphorus (2.5-4.5) mg/dL 11/13/18 11/13/18 11/13/18 Range/Units 08:56 10:04 11:52 Sodium (137-145) mmol/L Potassium (3.5-5.1) mmol/L Carbon Dioxide (22-30) mmol/L BUN (7-17) mg/dL Creatinine (0.52-1.04) mg/dL Glucose (74-99) mg/dL POC Glucose (mg/dL) 285 H 229 H 345 H (75-99) mg/dL Phosphorus (2.5-4.5) mg/dL 11/13/18 Range/Units 13:20 Sodium (137-145) mmol/L Potassium (3.5-5.1) mmol/L Carbon Dioxide (22-30) mmol/L BUN (7-17) mg/dL Creatinine (0.52-1.04) mg/dL Glucose (74-99) mg/dL POC Glucose (mg/dL) 381 H (75-99) mg/dL Phosphorus (2.5-4.5) mg/dL Assessment and Plan Plan: -Diabetic ketoacidosis: Patient can use to have anion gap and watch acidosis most probably secondary to ketosis because of which patient will be started on IV normal saline was with subcutaneous insulin and will recheck the basic metabolic profile again in the evening and if patient anion gap worsens then patient will go back on IV insulin again. Gets better will continue the same course -Sinus tachycardia secondary to autonomic dysfunction -Hyponatremia pseudohyponatremia from hyperglycemia which improved now -Diabetic gastroparesis and diabetic autonomic dysfunction and possible peripheral neuropathy: Symptomatic treatment for these -Hypothyroidism -Type 1 diabetes mellitus -Hypothyroidism -Anxiety disorder -Depression -History of Arnold-chiari malformation -History of regular Danlos syndrome. For above-mentioned chronic medical problems patient will be resumed on appropriate home medications
[2018-11-13 16:22] LABS: Glucose,Whole Blood 144 mg/dL (75-99)
[2018-11-13 17:26] LABS: Glucose,Whole Blood 118 mg/dL (75-99)
[2018-11-13 18:42] LABS: African American GFR (CKD) >90 (>60 ml/min/1.73 sqM); Anion Gap 15 mmol/L; Blood Urea Nitrogen 6 mg/dL (7-17); Calcium 9.6 mg/dL (8.4-10.2); Carbon Dioxide 23 mmol/L (22-30); Chloride 101 mmol/L (98-107); Glucose 161 mg/dL (74-99); Potassium 3.6 mmol/L (3.5-5.1); Sodium 139 mmol/L (137-145)
[2018-11-13 21:21] LABS: Glucose,Whole Blood 147 mg/dL (75-99)
[2018-11-14] MEDS: SODIUM CHLORIDE 0.9% 1,000 ML IV SCH ×4 (00:51→22:41)
[2018-11-14] MEDS: LEVOTHYROXINE 25 MCG TAB PO SCH (05:37)
[2018-11-14 06:25] LABS: African American GFR (CKD) >90 (>60 ml/min/1.73 sqM); Anion Gap 8 mmol/L; Blood Urea Nitrogen 5 mg/dL (7-17); Calcium 8.5 mg/dL (8.4-10.2); Carbon Dioxide 28 mmol/L (22-30); Chloride 105 mmol/L (98-107); Glucose 105 mg/dL (74-99); Potassium 3.6 mmol/L (3.5-5.1); Sodium 141 mmol/L (137-145)
[2018-11-14 06:36] LABS: Glucose,Whole Blood 159 mg/dL (75-99)
[2018-11-14] MEDS: INSULIN ASPART (NovoLOG) 100 UNIT/ML VIAL SQ SCH ×4 (06:46→21:37)
[2018-11-14] MEDS: INSULIN DETEMIR (LEVEMIR) 100 UNIT/ML SYR SQ SCH (06:46)
[2018-11-14] MEDS: MAG HYDROX/AL HYDROX/SIMETH 30 ML, LIDOCAINE VISCOUS 30 ML, diphenhydrAMINE ELIXIR 75 M... PO SCH ×12 (08:52→21:30)
[2018-11-14] MEDS: PRAVASTATIN SODIUM 20 MG TAB PO SCH (08:56)
[2018-11-14] MEDS: GABAPENTIN 300 MG CAP PO SCH ×2 (08:56→21:36)
[2018-11-14] MEDS: FLUDROCORTISONE 0.1 MG TAB PO SCH (08:56)
[2018-11-14] MEDS: MAG HYDROX/AL HYDROX/SIMETH 30 ML CUP PO SCH ×5 (08:56→21:30)
[2018-11-14] MEDS: CHOLECALCIFEROL 1,000 UNIT TAB PO SCH (08:56)
[2018-11-14 12:07] LABS: Glucose,Whole Blood 269 mg/dL (75-99)
[2018-11-14] MEDS ORDERED: INSULIN ASPART (NovoLOG) 100 UNIT/ML VIAL SQ ONE (12:16)
--- NOTE | 2018-11-14 15:07 | P.PN ---
Subjective from The records 23-year-old female with multiple medical problems was admitted secondary to diabetic ketoacidosis patient still has an anion gap of 17 remains on IV insulin with the D5 half-normal saline the left lites are better patient that nausea is better with Tigan patient will be started on Reglan I discussed extensively at length with the patient. Patient's metoprolol was stopped in the past because of significant orthostatic hypotension and in couple episodes. Patient remains tachycardic sinus tachycardia TSH is within normal limits patient's baseline heart rate is very high. Discussed with cardiology and leave the decision of h eart rate controlled to cardiology. Patient can take by mouth medications, patient will be started on Tylenol 3 for pain trying to avoid morphine or Dilaudid because of her gastroparesis. 11/13/2018 Patient anion gap is worse today in spite of being on IV insulin for 3 days I believe this is due to D5 half-normal saline because of which are not completely discontinue IV insulin D5 half-normal saline and patient will be started on subcu Insulin with IV fluids I'm hoping IV fluids and subcutaneous insulin will help her DKA if not we'll have to resume on IV insulin. We'll recheck the basic met abolic profile in the evening again. Patient will need to be nothing by mouth for any carbs Subjective 11/14/2018 Patient is 23 years old female who was admitted with diabetic ketoacidosis. Patient has been treated well with insulin drip and switched to subcutaneous insulin with sliding scale. Patient thinks she had gastroenteritis with recurrent vomiting for 1-1/2 days prior to admission to the hospital with some abdominal pain but no change in bowel habits or constipation because she was not eating well. Patient states she is been adherent to her treatment of insulin at home. Also patient states that she has history of Chiari malformation in the brain, recently diagnosed. She is planning to have surgery with her neurosurgeon on December. Consult about test. Patient confirms to me she still virgin. Patient is eating well with no problems, no more nausea vomiting. However she is developing low-grade temperature of 99.7. We'll do a urine analysis and chest x-ray. Also she has scalp infection which has been going on for a while, her post auricular lymphadenopathy is improving . Objective - Vital Signs Vital signs: Vital Signs Temp 98.2 F 11/14/18 07:55 Pulse 96 11/14/18 11:25 Resp 18 11/14/18 11:25 BP 135/75 11/14/18 11:25 Pulse Ox 98 11/14/18 11:25 Intake & Output 11/13/18 11/14/18 11/14/18 18:59 06:59 18:59 Intake Total 383.653 600 350 Output Total 1 Balance 383.653 599 350 Weight 59.2 kg 60.4 kg Intake: Intake, IV Titration 383.653 Amount Insulin Regular 100 unit 8.653 In Sodium Chloride 0.9% 100 ml @ 0.1 UNITS/KG/HR 5.727 mls/hr IV .[id number] [facility] Rx#:[id number] Sodium Chloride 0.9% 1, 375 000 ml @ 125 mls/hr IV . Q8H [facility] Rx#:[id number] Oral 0 600 350 Output: Urine 1 Other: # Voids 3 2 - Exam GENERAL: The patient is alert and oriented x3, not in any acute distress. Well developed, well nourished. HEENT: Pupils are round and equally reacting to light. EOMI. No scleral icterus. No conjunctival pallor. Normocephalic, atraumatic. No pharyngeal erythema. No thyromegaly. CARDIOVASCULAR: S1 and S2 present. No murmurs, rubs, or gallops. His tachycardic loud heart sounds PULMONARY: Chest is clear to auscultation, no wheezing or crackles. ABDOMEN: Soft, nontender, nondistended, normoactive bowel sounds. No palpable organomegaly. MUSCULOSKELETAL: No joint swelling or deformity. EXTREMITIES: No cyanosis, clubbing, or pedal edema. NEUROLOGICAL: Gross neurological examination did not reveal any focal deficits. SKIN: No rashes. - Labs CBC & Chem 7: 11/10/18 13:34 11/14/18 05:35 Labs: Abnormal Lab Results - Last 24 Hours (Table) 11/13/18 11/13/18 11/13/18 Range/Units 16:02 17:17 18:07 BUN 6 L (7-17) mg/dL Creatinine 0.33 L (0.52-1.04) mg/dL Glucose 161 H (74-99) mg/dL POC Glucose (mg/dL) 144 H 118 H (75-99) mg/dL 11/13/18 11/14/18 11/14/18 Range/Units 21:20 05:35 06:34 BUN 5 L (7-17) mg/dL Creatinine 0.36 L (0.52-1.04) mg/dL Glucose 105 H (74-99) mg/dL POC Glucose (mg/dL) 147 H 159 H (75-99) mg/dL 11/14/18 Range/Units 12:01 BUN (7-17) mg/dL Creatinine (0.52-1.04) mg/dL Glucose (74-99) mg/dL POC Glucose (mg/dL) 269 H (75-99) mg/dL Assessment and Plan Assessment: -Diabetic ketoacidosis: Patient can use to have anion gap and watch acidosis most probably secondary to ketosis because of which patient will be started on IV normal saline was with subcutaneous insulin and will recheck the basic metabolic profile again in the evening and if patient anion gap worsens then patient will go back on IV insulin again. Gets better will continue the same course -Fever, he'll do sepsis workup -Sinus tachycardia secondary to autonomic dysfunction -Hyponatremia pseudohyponatremia from hyperglycemia which improved now -Diabetic gastroparesis and diabetic autonomic dysfunction and possible peripheral neuropathy: Symptomatic treatment for these -Hypothyroidism -Type 1 diabetes mellitus -Hypothyroidism -Anxiety disorder -Depression -History of Arnold-chiari malformation -History of regular Danlos syndrome. For above-mentioned chronic medical problems patient will be resumed on appropriate home medications
[2018-11-14 17:10] LABS: Glucose,Whole Blood 63 mg/dL (75-99)
[2018-11-14 17:25] LABS: Glucose,Whole Blood 68 mg/dL (75-99)
[2018-11-14 17:47] LABS: Glucose,Whole Blood 69 mg/dL (75-99)
[2018-11-14 18:12] LABS: Glucose,Whole Blood 106 mg/dL (75-99)
[2018-11-14 21:25] LABS: Glucose,Whole Blood 273 mg/dL (75-99)
--- NOTE | 2018-11-14 21:51 | XR ---
EXAMINATION TYPE: XR chest 1V DATE OF EXAM: 11/14/2018 COMPARISON: Chest radiograph 07/08/2018 HISTORY: Left-sided rib pain after fall, dizziness TECHNIQUE: Single frontal view of the chest is obtained. FINDINGS: There is no focal air space opacity, pleural effusion, or pneumothorax seen. The cardiac silhouette size is within normal limits. The osseous structures are intact. IMPRESSION: No acute process.
[2018-11-14 23:56] LABS: Appearance,Urine Clear (Clear); Bacteria,Urine Occasional /hpf; Bilirubin,Urine Negative (Negative); Blood,Urine Negative (Negative); Color,Urine Yellow; Glucose,Urine (UA) 4+ (Negative); Hyaline Casts,Urine 1 /lpf (0-2); Ketones,Urine Negative (Negative); Leukocyte Esterase,Urine Small (Negative); Mucus,Urine Occasional /hpf; Nitrite,Urine Negative (Negative); Protein,Urine Negative (Negative); RBC,Urine 1 /hpf (0-5); Specific Gravity,Urine 1.012 (1.001-1.035); Squamous Epithelial Cell,Urine 5 /hpf (0-4); Urobilinogen,Urine <2.0 mg/dL (<2.0); WBC,Urine 3 /hpf (0-5)
[2018-11-15] MEDS: LEVOTHYROXINE 25 MCG TAB PO SCH (05:59)
[2018-11-15] MEDS: PANTOPRAZOLE 40 MG TABLET PO SCH (05:59)
[2018-11-15 06:36] LABS: Basophils # (A) 0.1 k/uL (0-0.2); Basophils % (A) 1 %; Eosinophils # (A) 0.3 k/uL (0-0.7); Eosinophils % (A) 3 %; HCT 37.7 % (34.0-46.0); HGB 12.1 gm/dL (11.4-16.0); Lymphocytes # (A) 5.3 k/uL (1.0-4.8); Lymphocytes % (A) 57 %; MCH 27.4 pg (25.0-35.0); MCHC 32.1 g/dL (31.0-37.0); Mean Platelet Volume 7.2; Monocytes # (A) 0.4 k/uL (0-1.0); Monocytes % (A) 4 %; Neutrophils # (A) 2.9 k/uL (1.3-7.7); Neutrophils % (A) 32 %; Platelet Count 406 k/uL (150-450); RBC 4.42 m/uL (3.80-5.40); RDW 15.8 % (11.5-15.5); WBC 9.2 k/uL (3.8-10.6)
[2018-11-15 06:38] LABS: Glucose,Whole Blood 132 mg/dL (75-99)
[2018-11-15 06:46] LABS: ALT 33 U/L (9-52); AST 31 U/L (14-36); African American GFR (CKD) >90 (>60 ml/min/1.73 sqM); Albumin 3.9 g/dL (3.5-5.0); Alkaline Phosphatase 167 U/L (38-126); Anion Gap 7 mmol/L; Bilirubin,Unconjugated 0.3 mg/dL (0.0-1.1); Blood Urea Nitrogen 7 mg/dL (7-17); Calcium 9.1 mg/dL (8.4-10.2); Carbon Dioxide 29 mmol/L (22-30); Chloride 105 mmol/L (98-107); Glucose 79 mg/dL (74-99); Potassium 3.7 mmol/L (3.5-5.1); Sodium 141 mmol/L (137-145); Total Bilirubin 0.3 mg/dL (0.2-1.3); Total Protein 6.3 g/dL (6.3-8.2)
[2018-11-15 07:00] LABS: MCV 85.2 fL (80.0-100.0)
[2018-11-15] MEDS: INSULIN ASPART (NovoLOG) 100 UNIT/ML VIAL SQ SCH ×2 (07:34→12:31)
[2018-11-15] MEDS: INSULIN DETEMIR (LEVEMIR) 100 UNIT/ML SYR SQ SCH (07:34)
[2018-11-15] MEDS: FLUDROCORTISONE 0.1 MG TAB PO SCH (07:42)
[2018-11-15] MEDS: CHOLECALCIFEROL 1,000 UNIT TAB PO SCH (07:42)
[2018-11-15] MEDS: MAG HYDROX/AL HYDROX/SIMETH 30 ML CUP PO SCH ×2 (07:42→12:35)
[2018-11-15] MEDS: GABAPENTIN 300 MG CAP PO SCH (07:42)
[2018-11-15] MEDS: MAG HYDROX/AL HYDROX/SIMETH 30 ML, LIDOCAINE VISCOUS 30 ML, diphenhydrAMINE ELIXIR 75 M... PO SCH ×8 (07:42→13:51)
[2018-11-15] MEDS: PRAVASTATIN SODIUM 20 MG TAB PO SCH (07:42)
[2018-11-15 10:02] VITALS: RESP 18
[2018-11-15] MEDS: Acetaminophen-Codeine 300-30mg TAB PO PRN (11:13)
[2018-11-15 12:22] LABS: Glucose,Whole Blood 234 mg/dL (75-99)
[2018-11-15 13:33] VITALS: BP 154/98; PULSE 93; TEMP 98.6
[2018-11-15] MEDS: ONDANSETRON 4 MG/2 ML VIAL IVP PRN (13:40)
--- NOTE | 2018-11-15 14:45 | P.DS ---
Providers Date of admission: 11/10/18 14:28 Attending physician: Karina Teran Consults: 11/10/18 19:01 Consult Physician Urgent Consulting Provider: Johanna Soto Consult Reason/Comments: elevated heart rate Do you want consulting provider notified?: Yes [facility] Course: Diagnoses: Diabetic ketoacidosis, resolved Diabetes mellitus, with uncontrolled glucose and hyperglycemia Gastroenteritis, resolved. This concern for gastroparesis. However patient was referred to GI clinic as an outpatient setting Fever, resolved. No more fever for the last 2 days. Normal WBC. No signs symptoms of infection. 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 Chronic Tachycardia, present on admission. Resolved upon on discharge and heart rate is ranging between 88-93. Hospital course: 23-year-old female with multiple medical problems was admitted secondary to diabetic ketoacidosis patient still has an anion gap of 17. Patient was admitted and treated with insulin drip as per protocol. Her anion gap Closed. Patient was started on her insulin regimen, she started eating and tolerated diet well. Patient had gastritis and recurrent nausea vomiting for 1.5 days prior to admission. Her gastric symptoms were resolved prior to discharge and she is able to tolerate her diet. She is improving gradually but she does not need further treatment regarding this. Senior Teradata Developer evaluated the patient for tachycardia and he recommended to hold on beta angi. Heart rate is back to within normal limits. Rest of vitals stable. Patient denies other symptoms. She denies chest pain. No dyspnea. No nausea vomiting. No more abdominal pain. No change in bowel habits. No urinary symptoms. Patient thinks she is ready to be discharged home today. Patient had fever 2 days ago, however workup was negative. No more fever for 24-48 hours. Leukocytosis on admission this soft and WBC is 9.2K upon discharge. Rest of labs including creatinine and liver enzymes packed within normal limits. I had lengthy discussion with the patient and mother at bedside about in structions, diagnoses, and follow-up recommendation. They verbalized understanding and acceptance Problems and management plan were discussed with the patient and he verbalized understanding and acceptance Patient was found stable and can be discharged home however he needs follow-up as an outpatient. Patient was instructed to follow up with her PCP in one week. Also she was instructed to follow up with GI team for possible GI symptoms in one week and she agrees. Appointments could not be made today because its holiday/weakened Gen: patient is a AAOx3, no distress CVS: S1-S2, RRR, no murmur Lungs: B/L CTA, no wheezing Abdomen: soft, no distention, no tenderness, positive bowel sounds Extremity: no leg edema or induration Time spent more than 35 minutes Patient Condition at Discharge: Fair Plan - Discharge Summary Discharge Rx Participant: Yes New Discharge Prescriptions: New Mag Hydrox/Al Hydrox/Simeth [Maalox] 30 ml PO QID PRN 3 Days #200 ml PRN Reason: Gi Upset Continue Levothyroxine Sodium [Synthroid] 25 mcg PO DAILY Cyclobenzaprine [Flexeril] 10 mg PO BID PRN PRN Reason: muscle spasms Albuterol Inhaler [Ventolin Hfa Inhaler] 1 - 2 puff INHALATION RT-BID hydrOXYzine HCL [Atarax] 25 mg PO TID PRN PRN Reason: Anxiety Gabapentin [Neurontin] 300 mg PO BID Cholecalciferol (Vitamin D3) [Vitamin D3] 2,000 unit PO DAILY Ondansetron Odt [Zofran ODT] 8 mg PO Q8HR PRN PRN Reason: Nausea Insulin Aspart [NovoLOG] See Protocol SQ ACHS Glucagen Hypo Kit 1 injection SQ DAILY PRN PRN Reason: hypoglycemia Meclizine [Antivert] 25 mg PO BID PRN PRN Reason: dizziness Pantoprazole [Protonix] 40 mg PO DAILY Pravastatin Sodium [Pravachol] 20 mg PO DAILY Fludrocortisone Acetate 0.1 mg PO DAILY Acetaminophen-Codeine 300-30mg [Tylenol w/codeine #3] 1 tab PO Q6H PRN PRN Reason: Pain Insulin Glargine,Hum.rec.anlog [Basaglar Kwikpen U-100] 10 unit SQ DAILY diphenhydrAMINE [Benadryl] 25 mg PO QID PRN PRN Reason: Itching Triamcinolone 0.1% Cream [Kenalog 0.1% Cream] 1 applic TOPICAL TID #1 tube Acetaminophen Tab [Tylenol] 650 mg PO Q6HR PRN #30 tab PRN Reason: Mild Pain Or Fever > 100.5 Promethazine [Phenergan] 25 mg PO Q8H PRN PRN Reason: Nausea Discharge Medication List Levothyroxine Sodium [Synthroid] 25 mcg PO DAILY 01/03/18 [History] Albuterol Inhaler [Ventolin Hfa Inhaler] 1 - 2 puff INHALATION RT-BID 02/06/18 [History] Cholecalciferol (Vitamin D3) [Vitamin D3] 2,000 unit PO DAILY 02/06/18 [History] Cyclobenzaprine [Flexeril] 10 mg PO BID PRN 02/06/18 [History] Gabapentin [Neurontin] 300 mg PO BID 02/06/18 [History] hydrOXYzine HCL [Atarax] 25 mg PO TID PRN 02/06/18 [History] Ondansetron Odt [Zofran ODT] 8 mg PO Q8HR PRN 05/08/18 [History] Acetaminophen-Codeine 300-30mg [Tylenol w/codeine #3] 1 tab PO Q6H PRN 07/18/18 [History] Fludrocortisone Acetate 0.1 mg PO DAILY 07/18/18 [History] Glucagen Hypo Kit 1 injection SQ DAILY PRN 07/18/18 [History] Insulin Aspart [NovoLOG] See Protocol SQ ACHS 07/18/18 [History] Insulin Glargine,Hum.rec.anlog [Basaglar Kwikpen U-100] 10 unit SQ DAILY 07/18/18 [History] Meclizine [Antivert] 25 mg PO BID PRN 07/18/18 [History] Pantoprazole [Protonix] 40 mg PO DAILY 07/18/18 [History] Pravastatin Sodium [Pravachol] 20 mg PO DAILY 07/18/18 [History] diphenhydrAMINE [Benadryl] 25 mg PO QID PRN 07/18/18 [History] Acetaminophen Tab [Tylenol] 650 mg PO Q6HR PRN #30 tab 07/22/18 [Rx] Triamcinolone 0.1% Cream [Kenalog 0.1% Cream] 1 applic TOPICAL TID #1 tube 07/22/18 [Rx] Promethazine [Phenergan] 25 mg PO Q8H PRN 11/10/18 [History] Mag Hydrox/Al Hydrox/Simeth [Maalox] 30 ml PO QID PRN 3 Days #200 ml 11/15/18 [Rx] Follow up Appointment(s)/Referral(s): Megan Mckeon MD [STAFF PHYSICIAN] - 1 Week (GI office ) Deborah Stearns MD [Primary Care Provider] - 1 Week Activity/Diet/Wound Care/Special Instructions: Diabetic diet Activity as tolerated Check your sugar 4 times per day, before each meal and at bedtime. Come to emergency room if her blood glucose more than 350 or less than 70
[2018-11-15 14:53] VITALS: BMI 22.8
== END 2018-11-15 14:00 | disposition home or self-care (01) | DRG 638 ==
LOC: EC 12:33 → 3SCARD 14:28
PROVIDERS: ADMIT Hospitalist; ATTEND Hospitalist
DX: E10.10 Type 1 diabetes mellitus with ketoacidosis without coma (principal); Q79.6 Ehlers-Danlos syndromes; G95.0 Syringomyelia and syringobulbia; E10.43 Type 1 diabetes mellitus with diabetic autonomic (poly)neuropathy; D72.829 Elevated white blood cell count, unspecified; E03.9 Hypothyroidism, unspecified; F17.210 Nicotine dependence, cigarettes, uncomplicated; F32.9 Major depressive disorder, single episode, unspecified; F41.9 Anxiety disorder, unspecified; F63.3 Trichotillomania; I95.1 Orthostatic hypotension; J45.909 Unspecified asthma, uncomplicated; K21.9 Gastro-esophageal reflux disease without esophagitis; K31.84 Gastroparesis; K29.70 Gastritis, unspecified, without bleeding; M41.9 Scoliosis, unspecified; Z79.4 Long term (current) use of insulin; Z79.890 Hormone replacement therapy; Z79.899 Other long term (current) drug therapy; Z83.3 Family history of diabetes mellitus; Q07.00 Arnold-Chiari syndrome without spina bifida or hydrocephalus; Z90.49 Acquired absence of other specified parts of digestive tract; Z86.14 Personal history of Methicillin resistant Staphylococcus aureus infection; R50.9 Fever, unspecified
CPT/HCPCS: 36415; 71045; 80048; 80051; 80053; 80076; 81001; 82009; 82565; 82803; 82947; 83605; 84100; 84132; 84443; 84520; 85025; 93306; 96361; 96374; 99285

== ENCOUNTER → 2018-11-27 | Outpatient (CLI) | payer OTHER ==
[2018-11-27 13:45] LABS: Basophils # (A) 0.1 k/uL (0-0.2); Basophils % (A) 1 %; Eosinophils # (A) 0.2 k/uL (0-0.7); Eosinophils % (A) 1 %; HCT 43.7 % (34.0-46.0); HGB 14.1 gm/dL (11.4-16.0); Lymphocytes # (A) 3.9 k/uL (1.0-4.8); Lymphocytes % (A) 30 %; MCH 28.1 pg (25.0-35.0); MCHC 32.3 g/dL (31.0-37.0); Mean Platelet Volume 6.8; Monocytes # (A) 0.4 k/uL (0-1.0); Monocytes % (A) 3 %; Neutrophils # (A) 8.2 k/uL (1.3-7.7); Neutrophils % (A) 63 %; Platelet Count 422 k/uL (150-450); RBC 5.03 m/uL (3.80-5.40); RDW 15.5 % (11.5-15.5); WBC 12.9 k/uL (3.8-10.6)
[2018-11-27 13:56] LABS: INR 0.8 (<1.2); Partial Thromboplastin Time 21.3 sec (22.0-30.0); Prothrombin Time 9.4 sec (9.0-12.0)
[2018-11-27 14:29] LABS: Erythrocyte Sedimentation Rate 26 mm/hr (0-20)
[2018-11-27 14:33] LABS: Appearance,Urine Clear (Clear); Bilirubin,Urine Negative (Negative); Blood,Urine Negative (Negative); Color,Urine Light Yellow; Glucose,Urine (UA) 4+ (Negative); Ketones,Urine 1+ (Negative); Leukocyte Esterase,Urine Negative (Negative); Nitrite,Urine Negative (Negative); Protein,Urine Negative (Negative); Specific Gravity,Urine 1.028 (1.001-1.035); Urobilinogen,Urine <2.0 mg/dL (<2.0)
[2018-11-27 19:20] LABS: African American GFR (CKD) 121.3 (60.0-200.0); Albumin 5.2 g/dL (3.80-4.90); Albumin/Globulin Ratio 2.48 (1.60-3.17); BUN/Creat Ratio 21.25 Ratio (12.00-20.00); Calcium 9.9 mg/dL (8.7-10.3); Globulin 2.1 g/dL (1.6-3.3); Potassium 4.1 mmol/L (3.5-5.5); Total Bilirubin 0.3 mg/dL (0.3-1.2); Total Protein 7.3 g/dL (6.2-8.2)
== END | disposition home or self-care (01) ==
LOC: LABWHC1 12:49
PROVIDERS: ATTEND Neurological Surgery
DX: G93.5 Compression of brain (principal); E55.9 Vitamin D deficiency, unspecified; Z51.81 Encounter for therapeutic drug level monitoring; Z79.899 Other long term (current) drug therapy; Z01.818 Encounter for other preprocedural examination
CPT/HCPCS: 36415; 80053; 81003; 82306; 83516; 85025; 85610; 85652; 85730; 86140; 93005

== ENCOUNTER 2019-01-14 18:36 | Emergency (ER) | payer OTHER ==
[2019-01-14 18:43] LABS: Glucose,Whole Blood 146 mg/dL (75-99)
[2019-01-14] MEDS ORDERED: SODIUM CHLORIDE 0.9% 1,000 ML IV ONE ×2 (18:49→20:37)
[2019-01-14] MEDS ORDERED: SODIUM CHLORIDE 0.9% 500 ML 500 ML IV ONE (18:49)
--- NOTE | 2019-01-14 18:53 | ED ---
Recheck HPI - General Chief Complaint: Recheck/Abnormal Lab/Rx Stated Complaint: DKA Time Seen by Provider: 01/14/19 18:42 Source: patient Mode of arrival: ambulatory Limitations: no limitations - History of Present Illness Initial Comments: 23-year-old female patient with past medical history significant for type 1 diabetes, Chiari malformation with recent cranial decompression surgery in the last 3 weeks, presents to the emergency department today for evaluation of possible DKA. Patient states that today her blood sugars have been elevated up to 421. Patient states she's been very nauseated and having a lot of acid reflux. Patient states she is feeling ill and rundown. States she has felt similar in the past when she has had DKA. Patient states that she was diagnosed with her incision site infection by her surgeon Friday and started on Keflex. She denies any fever or chills. Denies any drainage from the incision site. Denies any significant headache. Patient denies any recent rash, shortness breath, chest pain, abdominal pain, diarrhea, constipation, back pain, numbness, tingling, dizziness, weakness, hematuria, dysuria, urinary urgency, urinary frequency, visual changes, or any other complaints. - Related Data Home Medications Medication Instructions Recorded Confirmed Levothyroxine Sodium [Synthroid] 25 mcg PO DAILY 01/03/18 01/14/19 Albuterol Inhaler [Ventolin Hfa 1 - 2 puff INHALATION RT-BID 02/06/18 01/14/19 Inhaler] Cholecalciferol (Vitamin D3) 2,000 unit PO DAILY 02/06/18 01/14/19 [Vitamin D3] Cyclobenzaprine [Flexeril] 10 mg PO BID PRN 02/06/18 01/14/19 Gabapentin [Neurontin] 300 mg PO BID 02/06/18 01/14/19 hydrOXYzine HCL [Atarax] 25 mg PO TID PRN 02/06/18 01/14/19 Ondansetron Odt [Zofran ODT] 8 mg PO Q8HR PRN 05/08/18 01/14/19 Acetaminophen-Codeine 300-30mg 1 tab PO Q6H PRN 07/18/18 01/14/19 [Tylenol w/codeine #3] Fludrocortisone Acetate 0.1 mg PO DAILY 07/18/18 01/14/19 Glucagen Hypo Kit 1 injection SQ DAILY PRN 07/18/18 01/14/19 Insulin Aspart [NovoLOG] See Protocol SQ ACHS 07/18/18 01/14/19 Insulin Glargine,Hum.rec.anlog 9 unit SQ BID 07/18/18 01/14/19 [Basaglar Kwikpen U-100] Meclizine [Antivert] 25 mg PO BID PRN 07/18/18 01/14/19 Pantoprazole [Protonix] 40 mg PO DAILY 07/18/18 01/14/19 Pravastatin Sodium [Pravachol] 20 mg PO DAILY 07/18/18 01/14/19 diphenhydrAMINE [Benadryl] 25 mg PO QID PRN 07/18/18 01/14/19 Promethazine [Phenergan] 25 mg PO Q8H PRN 11/10/18 01/14/19 Cephalexin [Keflex] 500 mg PO Q8HR 01/14/19 01/14/19 Previous Rx's Medication Instructions Recorded Acetaminophen Tab [Tylenol] 650 mg PO Q6HR PRN #30 tab 07/22/18 Triamcinolone 0.1% Cream [Kenalog 1 applic TOPICAL TID #1 tube 07/22/18 0.1% Cream] Mag Hydrox/Al Hydrox/Simeth 30 ml PO QID PRN 3 Days #200 ml 11/15/18 [Maalox] Allergies Allergy/AdvReac Type Severity Reaction Status Date / Time No Known Allergies Allergy Verified 01/14/19 18:56 Review of Systems ROS Statement: Those systems with pertinent positive or pertinent negative responses have been documented in the HPI. ROS Other: All systems not noted in ROS Statement are negative. Past Medical History Past Medical History: Asthma, Diabetes Mellitus, GERD/Reflux, Syncope, Thyroid Disorder Additional Past Medical History / Comment(s): Pt recently admitted to [facility] on 07/04/18 with DKA. r, gastroporesis. Chiari malformation with ceringomyelia, kyphoscoliosis, EDS ehler danlows syndrome. History of Any Multi-Drug Resistant Organisms: MRSA Date of last positivie culture/infection: 03/2014 MDRO Source:: GROIN AREA Past Surgical History: Cholecystectomy Past Anesthesia/Blood Transfusion Reactions: No Reported Reaction Past Psychological History: Anxiety, Depression Smoking Status: Former smoker Past Alcohol Use History: None Reported Past Drug Use History: Marijuana - Past Family History Mother History Unknown: Yes Family Medical History: No Reported History Additional Family Medical History / Comment(s): "heart disease" Father Family Medical History: Diabetes Mellitus Additional Family Medical History / Comment(s): Diabetes type II.; Heart disease General Exam Limitations: no limitations General appearance: alert, in no apparent distress, other (Physical well- developed, well-nourished adult female patient in no acute distress. Vital signs upon presentation are temperature 98.5F, pulse 129, respirations 20, blood pressure 110/71, pulse ox 96% on room air.) Eye exam: Present: normal appearance, PERRL, EOMI. Absent: scleral icterus, conjunctival injection, periorbital swelling ENT exam: Present: normal exam, normal oropharynx, mucous membranes moist Neck exam: Present: other (She has a vertical incision over the mid cervical spine, there is evidence of mild surrounding erythema, no tenderness, no milka inage.). Absent: tenderness, meningismus, lymphadenopathy Respiratory exam: Present: normal lung sounds bilaterally. Absent: respiratory distress, wheezes, rales, rhonchi, stridor Cardiovascular Exam: Present: regular rate, normal rhythm, normal heart sounds. Absent: systolic murmur, diastolic murmur, rubs, gallop, clicks GI/Abdominal exam: Present: soft, normal bowel sounds. Absent: distended, tenderness, guarding, rebound, rigid Neurological exam: Present: alert, oriented X3, CN II-XII intact Psychiatric exam: Present: normal affect, normal mood Skin exam: Present: warm, dry, intact, normal color. Absent: rash Course Vital Signs 01/14/19 01/14/19 18:39 20:27 Temperature 98.5 F Pulse Rate 129 H 95 Respiratory 20 18 Rate Blood Pressure 110/71 116/83 O2 Sat by Pulse 96 99 Oximetry Medical Decision Making - Medical Decision Making 23-year-old female patient presents to the emergency department today for evaluation of nausea and elevated blood sugar. Patient is concerned she may have developed DKA. Patient did have recent surgery, midline cervical spine incision does have some mild surrounding erythema no drainage at this time. She is currently taking Keflex last couple of days given to her by her surgeon. Labs reviewed and did reveal elevated white blood cell count at 16.8. She denies any fevers or headache. She did have an anion gap of 22, acetone negative. Blood sugar is 196 here. She has not had any nausea or vomiting while in the department. She declined nausea medications. She'll be discharged at this time to follow-up with her primary care physician in one to 2 days. She is instructed to increase fluids and rest. Return parameters discussed in detail. She verbalizes understanding and agrees with this plan. - Lab Data Result diagrams: 01/14/19 18:30 01/14/19 18:30 Lab Results 01/14/19 01/14/19 01/14/19 Range/Units 18:30 18:30 18:41 WBC 16.3 H (3.8-10.6) k/uL RBC 4.86 (3.80-5.40) m/uL Hgb 13.4 (11.4-16.0) gm/dL Hct 43.3 (34.0-46.0) % MCV 88.9 (80.0-100.0) fL MCH 27.6 (25.0-35.0) pg MCHC 31.1 (31.0-37.0) g/dL RDW 15.1 (11.5-15.5) % Plt Count 672 H (150-450) k/uL Neutrophils % 70 % Lymphocytes % 23 % Monocytes % 4 % Eosinophils % 1 % Basophils % 1 % Neutrophils # 11.5 H (1.3-7.7) k/uL Lymphocytes # 3.8 (1.0-4.8) k/uL Monocytes # 0.6 (0-1.0) k/uL Eosinophils # 0.1 (0-0.7) k/uL Basophils # 0.1 (0-0.2) k/uL Sodium 137 (137-145) mmol/L Potassium 4.5 (3.5-5.1) mmol/L Chloride 96 L (98-107) mmol/L Carbon Dioxide 19 L (22-30) mmol/L Anion Gap 22 mmol/L BUN 16 (7-17) mg/dL Creatinine 0.52 (0.52-1.04) mg/dL Est GFR (CKD-EPI)AfAm >90 (>60 ml/min/1.73 sqM) Est GFR (CKD-EPI)NonAf >90 (>60 ml/min/1.73 sqM) Glucose 196 H (74-99) mg/dL POC Glucose (mg/dL) 146 H (75-99) mg/dL POC Glu [employer]ent [employer] Detective ID Jessica Martinez Calcium 10.3 H (8.4-10.2) mg/dL Phosphorus 5.1 H (2.5-4.5) mg/dL Magnesium 1.6 (1.6-2.3) mg/dL Total Bilirubin 0.5 (0.2-1.3) mg/dL AST 59 H (14-36) U/L ALT 61 H (9-52) U/L Alkaline Phosphatase 379 H (38-126) U/L Total Protein 9.0 H (6.3-8.2) g/dL Albumin 5.2 H (3.5-5.0) g/dL Urine Color Urine Appearance (Clear) Urine pH (5.0-8.0) Ur Specific [place] (1.001-1.035) Urine Protein (Negative) Urine Glucose (UA) (Negative) Urine Ketones (Negative) Urine Blood (Negative) Urine Nitrite (Negative) Urine Bilirubin (Negative) Urine Urobilinogen (<2.0) mg/dL Ur Leukocyte Esterase (Negative) Acetone, Qual Negative (Negative) 01/14/19 Range/Units 20:08 WBC (3.8-10.6) k/uL RBC (3.80-5.40) m/uL Hgb (11.4-16.0) gm/dL Hct (34.0-46.0) % MCV (80.0-100.0) fL MCH (25.0-35.0) pg MCHC (31.0-37.0) g/dL RDW (11.5-15.5) % Plt Count (150-450) k/uL Neutrophils % % Lymphocytes % % Monocytes % % Eosinophils % % Basophils % % Neutrophils # (1.3-7.7) k/uL Lymphocytes # (1.0-4.8) k/uL Monocytes # (0-1.0) k/uL Eosinophils # (0-0.7) k/uL Basophils # (0-0.2) k/uL Sodium (137-145) mmol/L Potassium (3.5-5.1) mmol/L Chloride (98-107) mmol/L Carbon Dioxide (22-30) mmol/L Anion Gap mmol/L BUN (7-17) mg/dL Creatinine (0.52-1.04) mg/dL Est GFR (CKD-EPI)AfAm (>60 ml/min/1.73 sqM) Est GFR (CKD-EPI)NonAf (>60 ml/min/1.73 sqM) Glucose (74-99) mg/dL POC Glucose (mg/dL) (75-99) mg/dL POC Glu Violent [employer] Detective ID Calcium (8.4-10.2) mg/dL Phosphorus (2.5-4.5) mg/dL Magnesium (1.6-2.3) mg/dL Total Bilirubin (0.2-1.3) mg/dL AST (14-36) U/L ALT (9-52) U/L Alkaline Phosphatase (38-126) U/L Total Protein (6.3-8.2) g/dL Albumin (3.5-5.0) g/dL Urine Color Yellow Urine Appearance Clear (Clear) Urine pH 5.5 (5.0-8.0) Ur Specific [place] 1.013 (1.001-1.035) Urine Protein Trace H (Negative) Urine Glucose (UA) Trace H (Negative) Urine Ketones 1+ H (Negative) Urine Blood Negative (Negative) Urine Nitrite Negative (Negative) Urine Bilirubin Negative (Negative) Urine Urobilinogen 2.0 (<2.0) mg/dL Ur Leukocyte Esterase Negative (Negative) Acetone, Qual (Negative) Disposition Clinical Impression: Hyperglycemia, Nausea Disposition: HOME SELF-CARE Condition: Good Instructions (If sedation given, give patient instructions): Acute Nausea and Vomiting (ED), Diabetic Hyperglycemia (ED) Additional Instructions: Rest. Increase fluids. Complete antibiotic prescription and full. Follow-up with your primary care physician or surgeon for recheck as soon as possible. Return to the emergency department immediately for any new, worsening, or concerning symptoms. Is patient prescribed a controlled substance at d/c from ED?: No Referrals: Ana Sebastian FNPBC [REFERRING] - 1-2 days Time of Disposition: 21:18
[2019-01-14 19:15] LABS: Basophils # (A) 0.1 k/uL (0-0.2); Basophils % (A) 1 %; Eosinophils # (A) 0.1 k/uL (0-0.7); Eosinophils % (A) 1 %; HCT 43.3 % (34.0-46.0); HGB 13.4 gm/dL (11.4-16.0); Lymphocytes # (A) 3.8 k/uL (1.0-4.8); Lymphocytes % (A) 23 %; MCH 27.6 pg (25.0-35.0); MCHC 31.1 g/dL (31.0-37.0); MCV 88.9 fL (80.0-100.0); Monocytes # (A) 0.6 k/uL (0-1.0); Monocytes % (A) 4 %; Neutrophils # (A) 11.5 k/uL (1.3-7.7); Neutrophils % (A) 70 %; Platelet Count 672 k/uL (150-450); RBC 4.86 m/uL (3.80-5.40); RDW 15.1 % (11.5-15.5); WBC 16.3 k/uL (3.8-10.6)
[2019-01-14 19:23] LABS: ALT 61 U/L (9-52); AST 59 U/L (14-36); African American GFR (CKD) >90 (>60 ml/min/1.73 sqM); Albumin 5.2 g/dL (3.5-5.0); Alkaline Phosphatase 379 U/L (38-126); Anion Gap 22 mmol/L; Blood Urea Nitrogen 16 mg/dL (7-17); Calcium 10.3 mg/dL (8.4-10.2); Carbon Dioxide 19 mmol/L (22-30); Chloride 96 mmol/L (98-107); Glucose 196 mg/dL (74-99); Magnesium 1.6 mg/dL (1.6-2.3); Non-African American GFR(CKD) >90 (>60 ml/min/1.73 sqM); Phosphorus 5.1 mg/dL (2.5-4.5); Potassium 4.5 mmol/L (3.5-5.1); Sodium 137 mmol/L (137-145); Total Bilirubin 0.5 mg/dL (0.2-1.3)
[2019-01-14 20:29] VITALS: RESP 18
[2019-01-14 20:42] LABS: Appearance,Urine Clear (Clear); Bilirubin,Urine Negative (Negative); Blood,Urine Negative (Negative); Color,Urine Yellow; Glucose,Urine (UA) Trace (Negative); Ketones,Urine 1+ (Negative); Leukocyte Esterase,Urine Negative (Negative); Nitrite,Urine Negative (Negative); PH, Urine 5.5 (5.0-8.0); Protein,Urine Trace (Negative); Specific Gravity,Urine 1.013 (1.001-1.035)
[2019-01-14 22:11] VITALS: BP 117/72; PULSE 104; TEMP 97.8
== END 2019-01-14 23:09 | disposition home or self-care (01) ==
LOC: EC 18:36 → SUPCPDRO 18:36 → EC 23:09
DX: E10.65 Type 1 diabetes mellitus with hyperglycemia (principal); R11.0 Nausea; E10.43 Type 1 diabetes mellitus with diabetic autonomic (poly)neuropathy; K31.84 Gastroparesis; E07.9 Disorder of thyroid, unspecified; J45.909 Unspecified asthma, uncomplicated; K21.9 Gastro-esophageal reflux disease without esophagitis; Z79.4 Long term (current) use of insulin; Z79.890 Hormone replacement therapy; Z79.899 Other long term (current) drug therapy; Z87.891 Personal history of nicotine dependence
CPT/HCPCS: 36415; 80053; 81003; 82009; 83735; 84100; 85025; 96360; 96361; 99283

== ENCOUNTER → 2019-08-18 | Outpatient (CLI) | payer OTHER ==
[2019-08-18 12:22] LABS: Basophils # (A) 0.1 k/uL (0-0.2); Basophils % (A) 1 %; Eosinophils # (A) 0.4 k/uL (0-0.7); Eosinophils % (A) 4 %; HCT 39.7 % (34.0-46.0); HGB 11.5 gm/dL (11.4-16.0); Hypochromasia Marked; Lymphocytes # (A) 2.6 k/uL (1.0-4.8); Lymphocytes % (A) 28 %; MCH 26.9 pg (25.0-35.0); MCV 92.5 fL (80.0-100.0); Mean Platelet Volume 6.5; Monocytes # (A) 0.3 k/uL (0-1.0); Monocytes % (A) 3 %; Neutrophils # (A) 5.9 k/uL (1.3-7.7); Neutrophils % (A) 63 %; Platelet Count 616 k/uL (150-450); RBC 4.29 m/uL (3.80-5.40); RDW 15.1 % (11.5-15.5); WBC 9.4 k/uL (3.8-10.6)
[2019-08-18 19:08] LABS: Hemoglobin A1C 8.8 % (4.0-6.0)
[2019-08-18 19:42] LABS: Prolactin 7.2 ng/mL (2.8-29.2)
[2019-08-18 19:43] LABS: Estradiol 37.8 pg/mL
[2019-08-18 20:55] LABS: African American GFR (CKD) 120.4 (60.0-200.0); Albumin 4.1 g/dL (3.80-4.90); Albumin/Globulin Ratio 1.78 (1.60-3.17); Anion Gap 15.1 mmol/L (4.00-12.00); BUN/Creat Ratio 17.5 Ratio (12.00-20.00); Carbon Dioxide 20.9 mmol/L (21.6-31.8); Chol/HDL Ratio 3.52; Globulin 2.3 g/dL (1.6-3.3); Luteinizing Hormone 4.4 mIU/mL; Non-African American GFR(CKD) 103.9 (60.0-200.0); Potassium 4.5 mmol/L (3.5-5.5); Total Bilirubin 0.3 mg/dL (0.3-1.2); Total Protein 6.4 g/dL (6.2-8.2)
== END | disposition home or self-care (01) ==
LOC: LABWHC1 11:43
PROVIDERS: ATTEND Internal Medicine Endocrinology, Diabetes & Metabolism
DX: N91.2 Amenorrhea, unspecified (principal); E10.65 Type 1 diabetes mellitus with hyperglycemia; E03.9 Hypothyroidism, unspecified; M79.89 Other specified soft tissue disorders
CPT/HCPCS: 36415; 80053; 80061; 82306; 82670; 83001; 83002; 83036; 83498; 84146; 84402; 84436; 84439; 84443; 85025

== ENCOUNTER → 2019-09-30 | Outpatient (CLI) | payer OTHER ==
--- NOTE | 2019-09-30 11:53 | ECHOF ---
Referral Reason:R22.43 localized swelling both lower legs MEASUREMENTS -------- HEIGHT: 165.1 cm WEIGHT: 79.4 kg BP: 105/69 RVIDd: 2.7 cm (< 3.3) IVSd: 1.2 cm (0.6 - 1.1) LVIDd: 3.9 cm (3.9 - 5.3) LVPWd: 1.1 cm (0.6 - 1.1) IVSs: 1.5 cm LVIDs: 2.3 cm LVPWs: 1.5 cm LA Diam: 3.2 cm (2.7 - 3.8) LAESV Index (A-L): 25.14 ml/m Ao Diam: 2.4 cm (2.0 - 3.7) AV Cusp: 1.9 cm (1.5 - 2.6) MV EXCURSION: 17.333 mm (> 18.000) MV EF SLOPE: 96 mm/s (70 - 150) EPSS: 0.7 cm MV E Placido: 1.10 m/s MV DecT: 193 ms MV A Placido: 0.85 m/s MV E/A Ratio: 1.30 FINDINGS -------- Sinus rhythm. This was a technically adequate study. The left ventricular size is normal. There is borderline concentric left ventricular hypertrophy. Overall left ventricular systolic function is normal with, an EF between 55 - 60 %. The right ventricle is normal in size. Normal LA size by volume 22+/-6 ml/m2. The right atrial size is normal. Interatrial and interventricular septum intact. The aortic valve is trileaflet, and appears structurally normal. No aortic stenosis or regurgitation. The mitral valve is normal. There is trace mitral regurgitation. The tricuspid valve appears structurally normal. Trace/mild (physiologic) pulmonic regurgitation. The aortic root size is normal. Normal inferior vena cava with normal inspiratory collapse consistent with estimated right atrial pre ssure of 5 mmHg. There is no pericardial effusion. CONCLUSIONS -------- 1. There is borderline concentric left ventricular hypertrophy. 2. Overall left ventricular systolic function is normal with, an EF between 55 - 60 %. 3. Normal LA size by volume 22+/-6 ml/m2. 4. The aortic valve is trileaflet, and appears structurally normal. No aortic stenosis or regurgitati on. 5. There is trace mitral regurgitation. 6. Trace/mild (physiologic) pulmonic regurgitation. 7. There is no pericardial effusion. [employer]: ANGELA Singh
== END | disposition home or self-care (01) ==
LOC: RADECHMAIN 08:22
PROVIDERS: ATTEND Family Medicine
DX: R22.43 Localized swelling, mass and lump, lower limb, bilateral (principal); E10.65 Type 1 diabetes mellitus with hyperglycemia
CPT/HCPCS: 93306

== ENCOUNTER → 2019-10-20 | Outpatient (CLI) | payer OTHER ==
--- NOTE | 2019-10-21 04:29 | MR ---
EXAMINATION TYPE: MR foot RT wo con DATE OF EXAM: 10/20/2019 COMPARISON: None HISTORY: Darek leg swelling, rt foot pain, 3 toe fx Multiplanar multiecho imaging of the right foot was performed without contrast. Ankle mortise is anatomic. There is subcutaneous edema around the ankle and distal tibia. There is so ft tissue swelling and subcutaneous edema around the forefoot. On the T2 images there is multiple are as of abnormal increased signal involving the shaft of the first metatarsal, mid and distal shaft sec ond metatarsal mid and distal shaft fourth metatarsal. There is displaced oblique fracture of the dis romaine third metatarsal. There is extensive edema in the mid and distal third metatarsal. There appears to be anterior displacement of the base of the second metatarsal in relation to the other metatarsals and consistent with partial dislocation. There is oblique fracture of the base of the second metatar wesley. A plain x-ray exam or CT scan would be better for evaluation of this anatomy. The fifth metatars al has normal signal pattern. There appears to be nondisplaced fracture of the head of the fourth met atarsal. Achilles tendon is intact. Plantar fascia appears intact. There is some patchy increased signal in th e mid calcaneus. There is similar change in the cuboidal bone. There is diffuse increased signal in t he first cuneiform bone. This is consistent with a bone bruise. IMPRESSION: Extensive edema and multiple metatarsals as above consistent with fractures of the third and fourth d istal metatarsals and multiple areas of bone bruise involving the first and fourth metatarsals. There is evidence of oblique fracture base of the second metatarsal with anterior displacement of the meta tarsal shaft in relation to the tarsus.. Extensive soft tissue edema of the forefoot. Edema in the first cuneiform bone consistent with a bone bruise.
== END | disposition home or self-care (01) ==
LOC: RADMRIMAIN 07:19
PROVIDERS: ATTEND Nurse Practitioner Family
DX: S92.321A Displaced fracture of second metatarsal bone, right foot, initial encounter for closed fracture (principal); R60.9 Edema, unspecified; S92.331K Displaced fracture of third metatarsal bone, right foot, subsequent encounter for fracture with nonunion

== ENCOUNTER → 2019-12-13 | Outpatient (CLI) | payer OTHER ==
[2019-12-13 18:38] LABS: African American GFR (CKD) 148.9 (60.0-200.0); BUN/Creat Ratio 21.67 Ratio (12.00-20.00); Calcium 8.9 mg/dL (8.7-10.3); Non-African American GFR(CKD) 128.5 (60.0-200.0); Potassium 5.1 mmol/L (3.5-5.5)
[2019-12-14 01:27] LABS: Hemoglobin A1C 9.6 % (4.0-6.0)
== END | disposition home or self-care (01) ==
LOC: LABWHC1 14:06
PROVIDERS: ATTEND Internal Medicine
DX: E10.65 Type 1 diabetes mellitus with hyperglycemia (principal)
CPT/HCPCS: 36415; 80048; 83036

== ENCOUNTER 2020-05-10 07:01 | Day surgery (SDC) | payer OTHER ==
[2020-05-08 17:56] VITALS: BMI 29.9
[~2020-05-10 07:01] MED LIST changes: -IV FLUID CONTINUATION 1,000 ML IV ONE; +LACTATED RINGERS 1,000 ML IV SCH; +LIDOCAINE 1% (10MG/ML) FOR IV START INTRADERMA PRN; -SODIUM CHLORIDE 0.9% 1,000 ML IV SCH; +TETRACAINE 0.5% OPHTH (PF) DROPS 4 ML BTL OP PRN
[2020-05-10] MEDS: CYCLOPENTOLATE 1% OPHTH SOLN 2 ML BTL OP PRN ×3 (07:38→07:54)
[2020-05-10] MEDS: PHENYLEPHRINE 2.5% OPHTH DRP 2ML OP PRN ×3 (07:41→07:57)
[2020-05-10 07:43] VITALS: RESP 16; TEMP 97.5
[2020-05-10] MEDS ORDERED: FAMOTIDINE 20 MG/2 ML VIAL IVP ONE (07:58)
[2020-05-10 08:00] LABS: Glucose,Whole Blood 197 mg/dL (75-99)
[2020-05-10] MEDS ORDERED: fentaNYL (PF) 50 MCG/ML 2 ML AMP ONE (08:06)
[2020-05-10] MEDS ORDERED: LIDOCAINE 1% (PF) 10MG/ML VIAL MISCELLANE ONE ×2 (08:19→08:29)
[2020-05-10] MEDS ORDERED: HYALURONATE SODIUM INTRAOCULAR 1 EACH SYRINGE (12MG/ML) INTRAOCULA ONE ×2 (08:19→08:28)
[2020-05-10] MEDS ORDERED: BALANCED SALT IRRIG SOLN COMB2 15 ML IRRIG.SOLN INTRAOCULA ONE ×2 (08:19→08:29)
[2020-05-10] MEDS: TIMOLOL 0.5% OPHTH DROPS 5 ML BTL OP PRN ×3 (08:20→08:38)
[2020-05-10] MEDS: MOXIFLOXACIN HCL 0.5% DROPS 3 ML BTL OP PRN ×3 (08:20→08:38)
[2020-05-10] MEDS ORDERED: EPINEPHrine (PF) 0.3 ML in BALANCED SALT IRRIG SOLN COMB2 500 ML IRRIGATION ONE (08:21)
--- NOTE | 2020-05-10 08:42 | P.OP ---
Date of Procedure: 05/10/20 Preoperative Diagnosis: diabetic cataract Postoperative Diagnosis: same Procedure(s) Performed: PIOL, OD Implants: [id number] 21.50 Anesthesia: MAC Surgeon: Grover Bueno Pathology: none sent Condition: stable Disposition: same day Indications for Procedure: blurry vision Operative Findings: no complications
[2020-05-10 09:12] VITALS: BP 107/68; PULSE 94
--- NOTE | 2020-05-10 20:36 | OP ---
OPERATIVE REPORT DATE OF SURGERY: 05/10/2020 PROCEDURE: Phacoemulsification of cataract and intraocular lens implant of the right eye. PREOPERATIVE DIAGNOSIS: Posterior subcapsular cataract for diabetic cataract lens. POSTOPERATIVE DIAGNOSIS: ESTIMATED BLOOD LOSS: Zero. SPECIMEN TAKEN: None. NARRATIVE: After obtaining the appropriate consent, the patient was brought to the operating room, where the patient was placed under cardiac monitoring and prepped and draped in the usual sterile manner. At the 11 o'clock position a 15-degree super sharp blade was used to create a paracentesis followed by instillation of 1% Xylocaine MPF 50:50 mix with BSS into the anterior chamber. This was followed by Amvisc to stabilize the anterior chamber. At the 9 o'clock position a self-sealing corneal flap incision was created using 2.8 mm omar keratome. A cystotome was used to initiate a continuous tear capsulorrhexis which was completed with the Utrata forceps. A Binkhorst cannula was used to hydrodissect the lens nucleus followed by hydrodelineation. Phacoemulsification of the lens was performed utilizing phacochop in 1.52 seconds at 6% power. The remaining cortical material was removed using the irrigation aspiration mode followed by additional 1% Xylocaine MPF into the anterior chamber followed by viscoelastic Amvisc to stabilize the capsular bag. A Bausch and Lomb MX 60E 21.5 diopters posterior chamber lens was placed into the capsular bag without difficulty. The remaining viscoelastic material was removed from the anterior chamber with the irrigation/aspiration. Balanced salt solution was used to normalize the intraocular pressure. The incision was checked for watertight integrity. The patient then received two drops of 0.5% timolol followed by two drops Vigamox, was lightly patched and shielded in the usual manner. There were no complications from the procedure. The patient tolerated the procedure well and was returned to recovery in good condition. MMODL / IJN: [id number] /
== END 2020-05-10 09:27 | disposition home or self-care (01) ==
LOC: OR 07:01
PROVIDERS: ATTEND Ophthalmology
DX: E10.36 Type 1 diabetes mellitus with diabetic cataract (principal); H25.041 Posterior subcapsular polar age-related cataract, right eye; H04.123 Dry eye syndrome of bilateral lacrimal glands; H52.13 Myopia, bilateral; I95.9 Hypotension, unspecified; I10 Essential (primary) hypertension; J45.909 Unspecified asthma, uncomplicated; E78.00 Pure hypercholesterolemia, unspecified; E03.9 Hypothyroidism, unspecified; E10.40 Type 1 diabetes mellitus with diabetic neuropathy, unspecified; F32.9 Major depressive disorder, single episode, unspecified; G95.0 Syringomyelia and syringobulbia; Z98.890 Other specified postprocedural states; Z86.69 Personal history of other diseases of the nervous system and sense organs; Z79.891 Long term (current) use of opiate analgesic; Z79.4 Long term (current) use of insulin; Z79.1 Long term (current) use of non-steroidal anti-inflammatories (NSAID); Z79.899 Other long term (current) drug therapy; Z79.890 Hormone replacement therapy; Z80.9 Family history of malignant neoplasm, unspecified; Z83.3 Family history of diabetes mellitus; Z82.49 Family history of ischemic heart disease and other diseases of the circulatory system; Z82.3 Family history of stroke
CPT/HCPCS: 66984; 81025; C1780; J0171; J3010; J2001

== ENCOUNTER 2020-05-24 07:49 | Day surgery (SDC) | payer OTHER ==
[2020-05-18 13:39] VITALS: BMI 29.9
[~2020-05-24 07:49] MED LIST changes: +CYCLOPENTOLATE 1% OPHTH SOLN 2 ML BTL OP PRN; +MOXIFLOXACIN HCL 0.5% DROPS 3 ML BTL OP PRN; +PHENYLEPHRINE 2.5% OPHTH DRP 2ML OP PRN; +TIMOLOL 0.5% OPHTH DROPS 5 ML BTL OP PRN
[2020-05-24 08:23] VITALS: RESP 16; TEMP 97.6
[2020-05-24] MEDS ORDERED: LACTATED RINGERS 1,000 ML IV ONE (08:26)
[2020-05-24] MEDS ORDERED: fentaNYL (PF) 50 MCG/ML 2 ML AMP ONE (08:41)
[2020-05-24] MEDS ORDERED: MIDAZOLAM 2 MG/2 ML VIAL ONE (08:41)
[2020-05-24 08:43] LABS: Glucose,Whole Blood 169 mg/dL (75-99)
[2020-05-24] MEDS ORDERED: HYALURONATE SODIUM INTRAOCULAR 1 EACH SYRINGE (12MG/ML) INTRAOCULA ONE (08:57)
[2020-05-24] MEDS ORDERED: BALANCED SALT IRRIG SOLN COMB2 15 ML IRRIG.SOLN IRRIGATION ONE (08:58)
[2020-05-24] MEDS ORDERED: LIDOCAINE 1% (PF) 10MG/ML VIAL SQ ONE (08:58)
[2020-05-24] MEDS ORDERED: EPINEPHrine (PF) 0.3 ML in BALANCED SALT IRRIG SOLN COMB2 500 ML IRRIGATION ONE (08:59)
--- NOTE | 2020-05-24 09:13 | P.OP ---
Date of Procedure: 05/24/20 Preoperative Diagnosis: PSC Postoperative Diagnosis: same Procedure(s) Performed: PIOL< OS Implants: [id number] 21.50 Anesthesia: MAC Surgeon: Grover Bueno Pathology: none sent Condition: stable Disposition: same day Indications for Procedure: blurry vision Operative Findings: no complications
[2020-05-24 09:43] VITALS: BP 101/66; PULSE 76
--- NOTE | 2020-05-24 22:57 | OP ---
OPERATIVE REPORT DATE OF SURGERY: 05/24/2020 PROCEDURE: Phacoemulsification of cataract and intraocular lens implant of the left eye. PREOPERATIVE DIAGNOSIS: Posterior subcapsular cataract. POSTOPERATIVE DIAGNOSIS: Posterior subcapsular cataract. ESTIMATED BLOOD LOSS: Zero. SPECIMEN TAKEN: None. NARRATIVE: After obtaining the appropriate consent, the patient was brought to the operating room, where the patient was placed under cardiac monitoring and prepped and draped in the usual sterile manner. At the 5 o'clock position a 15-degree super sharp blade was used to create a paracentesis followed by instillation of 1% Xylocaine MPF 50:50 mix with BSS into the anterior chamber. This was followed by Amvisc to stabilize the anterior chamber. At the 3 o'clock position a self-sealing corneal flap incision was created using 2.8 mm omar keratome. A cystotome was used to initiate a continuous tear capsulorrhexis which was completed with the Utrata forceps. A Binkhorst cannula was used to hydrodissect the lens nucleus followed by hydrodelineation. Phacoemulsification of the lens was performed utilizing phacochop in 10 seconds at 5% power. The remaining cortical material was removed using the irrigation aspiration mode followed by additional 1% Xylocaine MPF into the anterior chamber followed by viscoelastic Amvisc to stabilize the capsular bag. A Bausch [employer] Lomb MX60E 21.5 diopter posterior chamber lens was placed into the capsular bag without difficulty. The remaining viscoelastic Amvisc material was removed from the anterior chamber with the irrigation/aspiration. Balanced salt solution was used to normalize the intraocular pressure. The incision was checked for watertight integrity. The patient then received two drops of 0.5% timolol followed by two drops Vigamox, was lightly patched and shielded in the usual manner. There were no complications from the procedure. The patient tolerated the procedure well and was returned to recovery in good condition. MMODL / IJN: [id number] /
== END 2020-05-24 09:50 | disposition home or self-care (01) ==
LOC: OR 07:49
PROVIDERS: ATTEND Ophthalmology
DX: H25.042 Posterior subcapsular polar age-related cataract, left eye (principal); E10.36 Type 1 diabetes mellitus with diabetic cataract; H04.123 Dry eye syndrome of bilateral lacrimal glands; H52.13 Myopia, bilateral; I95.9 Hypotension, unspecified; H91.90 Unspecified hearing loss, unspecified ear; J45.990 Exercise induced bronchospasm; G43.909 Migraine, unspecified, not intractable, without status migrainosus; I10 Essential (primary) hypertension; E78.00 Pure hypercholesterolemia, unspecified; E03.9 Hypothyroidism, unspecified; E10.40 Type 1 diabetes mellitus with diabetic neuropathy, unspecified; F32.9 Major depressive disorder, single episode, unspecified; Z96.1 Presence of intraocular lens; Z98.41 Cataract extraction status, right eye; Z98.890 Other specified postprocedural states; Z86.69 Personal history of other diseases of the nervous system and sense organs; Z87.798 Personal history of other (corrected) congenital malformations; Z79.52 Long term (current) use of systemic steroids; Z79.891 Long term (current) use of opiate analgesic; Z79.4 Long term (current) use of insulin; Z79.1 Long term (current) use of non-steroidal anti-inflammatories (NSAID); Z97.3 Presence of spectacles and contact lenses; Z80.9 Family history of malignant neoplasm, unspecified; Z83.3 Family history of diabetes mellitus; Z82.49 Family history of ischemic heart disease and other diseases of the circulatory system; Z82.3 Family history of stroke
CPT/HCPCS: 66984; 81025; C1780; J2250; J0171; J3010; J2001

== ENCOUNTER 2020-09-11 21:01 | Emergency (ER) | payer OTHER ==
[2020-09-11 21:47] VITALS: RESP 16; TEMP 98.2
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
--- NOTE | 2020-09-11 23:39 | XR ---
EXAMINATION TYPE: XR chest 2V DATE OF EXAM: 09/11/2020 COMPARISON: 11/14/2018 HISTORY: Chest pain TECHNIQUE: FINDINGS: Heart and mediastinum are normal. Lungs are clear. Diaphragm is normal. Bony thorax is inta ct. IMPRESSION: Normal chest. No change.
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
[2020-09-12 00:30] VITALS: BP 112/62; PULSE 69
== END 2020-09-12 00:30 | disposition home or self-care (01) ==
LOC: EC 21:01
DX: S20.212A Contusion of left front wall of thorax, initial encounter (principal); S09.90XA Unspecified injury of head, initial encounter; J45.909 Unspecified asthma, uncomplicated; E11.9 Type 2 diabetes mellitus without complications; K21.9 Gastro-esophageal reflux disease without esophagitis; F32.9 Major depressive disorder, single episode, unspecified; F41.9 Anxiety disorder, unspecified; F17.200 Nicotine dependence, unspecified, uncomplicated; Z79.4 Long term (current) use of insulin; V47.5XXA Car driver injured in collision with fixed or stationary object in traffic accident, initial encounter; Y92.410 Unspecified street and highway as the place of occurrence of the external cause
CPT/HCPCS: 70450; 71046; 72125; 93005; 99284

== ENCOUNTER → 2020-10-17 | Outpatient (CLI) | payer OTHER | END | disposition home or self-care (01) | LOC: LABWHC1 13:34 | PROVIDERS: ATTEND Emergency Medicine | DX: Z53.9 Procedure and treatment not carried out, unspecified reason (principal) ==

== ENCOUNTER → 2020-10-20 | Outpatient (CLI) | payer OTHER | END | disposition home or self-care (01) | LOC: LABWHC1 14:05 | PROVIDERS: ATTEND Emergency Medicine | DX: Z03.818 Encounter for observation for suspected exposure to other biological agents ruled out (principal); Z20.822 Contact with and (suspected) exposure to COVID-19 | CPT/HCPCS: 87635 ==

== ENCOUNTER → 2020-11-27 | Outpatient (CLI) | payer OTHER | END | disposition home or self-care (01) | LOC: LABWHC1 12:08 | PROVIDERS: ATTEND Emergency Medicine | DX: Z20.822 Contact with and (suspected) exposure to COVID-19 (principal) | CPT/HCPCS: 87635 ==

== ENCOUNTER → 2020-11-28 | Outpatient (CLI) | payer OTHER | END | disposition home or self-care (01) | LOC: LABWHC1 13:09 | PROVIDERS: ATTEND Emergency Medicine | DX: Z20.822 Contact with and (suspected) exposure to COVID-19 (principal) | CPT/HCPCS: 87635 ==